=== PATIENT | male | born 1965 | race Caucasian/White ===

== ENCOUNTER 2016-11-27 12:39 | Emergency (ER) | payer MEDICARE, OTHER ==
[~2016-11-27] VITALS: Ht 167.6 cm; Wt 79.8 kg
[~2016-11-27 12:39] MED LIST: ATIVAN0.5 MG PO; ATIVAN1 MG PO; BACTRIM DS TAB1 EACH PO; CYCLOBENZAPRINE10 MG PO; CYMBALTA30 MG PO; DEPAKENE250 MG; DEPAKENE250 MG PO; DEPAKOTE250 MG PO; DESCOVY 200-251 EACH PO; DIVALPROEX SOD250 MG PO; DULOXETINE HCL30 MG PO; FLEXERIL PO; FLEXERIL10 MG PO; IMITREX6 MG/0.52 INJ; ISENTRESS400 MG PO; KEFLEX500 MG PO; KEPPRA500 MG PO; LIDODERM700 MG TD; LYRICA150 MG PO; METOPROLOL SUCC25 MG PO; METOPROLOL SUCC50 MG PO; MICARDIS40 MG PO; MICARDIS80 MG PO; MONTELUKAST SOD10 MG PO; NASONEX17 GM NAS; NORCO 5-325 TA1 EACH PO; PERCOCET 10-321 EACH PO; PERCOCET 5-3251 EACH PO; PHENERGAN25 MG/1 ML; PREZCOBIX 8001 EACH PO; PROMETHAZINE12.5 M1 PO; ROBAXIN-750750 MG PO; SUMATRIPTAN SU100 MG PO; TELMISARTAN80 MG PO; TIVICAY50 MG PO; TOPAMAX15 MG PO; TRAZODONE HCL100 MG PO; TRUVADA 200 MG1 EACH PO; VENTOLIN HFA18 GM INH; ZOFRAN4 MG PO
[2016-11-27] MEDS ORDERED: CARVEDILOL3.125 MG PO (13:27)
== END 2016-11-27 13:36 | disposition home or self-care (01) ==
LOC: ED 12:39
DX: I10 Essential (primary) hypertension (principal); G40.909 Epilepsy, unspecified, not intractable, without status epilepticus; J44.9 Chronic obstructive pulmonary disease, unspecified; F31.9 Bipolar disorder, unspecified; F41.9 Anxiety disorder, unspecified; F43.10 Post-traumatic stress disorder, unspecified; Z90.49 Acquired absence of other specified parts of digestive tract; Z88.8 Allergy status to other drugs, medicaments and biological substances; Z79.899 Other long term (current) drug therapy
CPT/HCPCS: 99283

== ENCOUNTER 2017-05-26 10:13 | Emergency (ER) | payer MEDICARE, OTHER ==
[~2017-05-26] VITALS: Ht 167.6 cm; Wt 71.7 kg
[~2017-05-26 10:13] MED LIST changes: +CARVEDILOL3.125 MG PO
[2017-05-26] MEDS ORDERED: TAMIFLU75 MG PO (11:40)
[2017-05-26] MEDS ORDERED: ONDANSETRON ODT8 MG PO (11:40)
== END 2017-05-26 11:55 | disposition home or self-care (01) ==
LOC: ED 10:13
DX: J10.1 Influenza due to other identified influenza virus with other respiratory manifestations (principal); I10 Essential (primary) hypertension; J44.9 Chronic obstructive pulmonary disease, unspecified; G40.909 Epilepsy, unspecified, not intractable, without status epilepticus; F31.9 Bipolar disorder, unspecified; F41.9 Anxiety disorder, unspecified; Z21 Asymptomatic human immunodeficiency virus [HIV] infection status; Z90.49 Acquired absence of other specified parts of digestive tract; Z88.8 Allergy status to other drugs, medicaments and biological substances; Z79.899 Other long term (current) drug therapy
CPT/HCPCS: 71045; 80053; 81001; 83605; 85025; 96361; 96374; 96375; 99283; J1885; J2405; J7030

== ENCOUNTER 2017-07-05 09:11 | Emergency (ER) | payer MEDICARE, OTHER ==
[~2017-07-05] VITALS: Ht 167.6 cm; Wt 71.7 kg
--- OUTSIDE RECORDS SUMMARY | ~2017-07-05 | XMS | Clinical Summary ---
Demographics + + + | Address | [address] | | | [place] [address] | + + + | Home Phone | | + + + | Preferred Language | Unknown | + + + | Marital Status | Unmarried Domestic Partner | + + + | Amish Affiliation | NON | + + + [...] [place], [place] | | | | | [address] | | + + + + + Care Team Providers + +------+ + | Care Shank Taper Name | Role | Phone | + +------+ + | Jax Cabrera MD | PP | | + +------+ + Source Comments FAUSTO is fully live on both EpicCare Ambulatory and EpicCare InPatient.[facility] Allergies + + + + + [...] | | | | | | | ([facility]) | | | | | | | [...] | | | | | | | ([facility]) | | | | | | | [...] | | | | | | | ([facility]), Diarrhea, | | | | | | [...] | 7 | + + + + Encounters +--------+ + + + + | Date | Type | Specialty | Care Team | Description | +--------+ + + + + | 04/13/ | Telephone | | Krista Lo | Social work | | 2016 | | | | consultation (Issues | | | | | | with medical | | | | | | records/practice) | +--------+ + + + + from [...] + + + | INFLUENZA VACCINE | Completed | 02/24/2017, 02/24/2017, | | | (FLU SHOT) | | 03/09/2016, Additional history | | | | | exists | | + + + + + Results Not on filefrom Last 3 Months
--- OUTSIDE RECORDS SUMMARY | ~2017-07-05 | XMS | Clinical Summary ---
Demographics + + + | Address | [address] | | | [place] [address] | + + + | Home Phone | | + + + | Preferred Language | Unknown | + + + | Marital Status | Unmarried Domestic Partner | + + + | Confucianism Affiliation | NON | + + + [...] | + + + + + | SHWAN STEPHENS | ECON | [address] | | | | | [place], [place] | | | | | [address] | | + + + + + Care Team Providers + +------+ + | Care Stripper Cutter Machine Name | Role | Phone | + +------+ + | Jax Cabrera MD | PP | | + +------+ + Source Comments FAUSTO is fully live on both EpicCare Ambulatory and EpicCare InPatient.[facility] Allergies + + + + + [...] | | | | | ([facility]) | | | | | | [...] | | | | | ([facility]) | | | | | | [...] | | | | | ([facility]), Diarrhea, | | | | | [...]
--- OUTSIDE RECORDS SUMMARY | ~2017-07-05 | XMS | Encounter Summary ---
Demographics + + + | Address | [address] | | | [place] [address] | + + + | Home Phone [...] + + + | Author | [facility] | [...] 10TH | | | | | [place] | | | | | [address] | | + + + + + Care Team Providers + +------+ + | Care Business Systems Consultant Name | Role | Phone | [...] + + | 04/13/ | Telephone | Internal Medicine | Krista Lo | Social work | | 2017 | | [facility] [address] | [address] | consultation (Issues | | | | Maggie [place] | [place], | with medical | | | | Road Mailcode: | [place] [address] | records/practice) | | | | [address] | | | | | | [place] | | | | | | [place] [address] | | | | | | [phone] | | | +--------+ + + + [...]
--- OUTSIDE RECORDS SUMMARY | ~2017-07-05 | XMS | Encounter Summary ---
Demographics + + + | Address | [address] | | | [place] [address] | + + + | Home Phone [...] + + + | Author | [facility] | + + + | [...] [place] | | | | | [address] | | + + + + + Care Team Providers + +------+ + | Care Front End Loader Operator Name | Role | Phone | [...] | | Maggie [place] | [place], | with medical | | | | Road Mailcode: | [place] [address] | records/practice) | | | | [address] | | | | | | [place] | | | | | | [place] [address] | | | | | | [phone] | | | +--------+ + + + [...]
[~2017-07-05 09:11] MED LIST changes: +ONDANSETRON ODT8 MG PO; +TAMIFLU75 MG PO
[2017-07-05] MEDS ORDERED: NITROSTAT0.4 MG SL (13:09)
--- NOTE | 2017-07-05 21:36 | EKG ---
[facility] [address] [place] [address] Signed Normal sinus rhythm Minimal voltage criteria for LVH, may be normal variant Borderline ECG When compared with ECG of 17-JAN-2016 13:37, No significant change was found Confirmed by ILENE FLEMING MD ([id number]) on 07/05/2017 9:36:15 PM Electronically Signed By: ILENE FLEMING MD 07/05/17 2136 PATIENT NAME: MICHAEL CHAVEZ Electrocardiogram DATE OF : 67 PHYSICIAN: ILENE FLEMING MD REPORT #: [id number] REPORT IS CONFIDENTIAL AND NOT TO BE RELEASED WITHOUT AUTHORIZATION
== END 2017-07-05 13:40 | disposition home or self-care (01) ==
LOC: ED 09:11
DX: R07.89 Other chest pain (principal); B19.20 Unspecified viral hepatitis C without hepatic coma; I10 Essential (primary) hypertension; B20 Human immunodeficiency virus [HIV] disease; F31.9 Bipolar disorder, unspecified; F41.9 Anxiety disorder, unspecified; Z88.8 Allergy status to other drugs, medicaments and biological substances; Z79.899 Other long term (current) drug therapy
CPT/HCPCS: 71045; 80053; 84484; 85025; 93005; 93010; 99284

== ENCOUNTER 2017-11-09 10:01 | Emergency (ER) | payer MEDICARE, OTHER ==
[~2017-11-09] VITALS: Ht 167.6 cm; Wt 71.7 kg
[~2017-11-09 10:01] MED LIST changes: +NITROSTAT0.4 MG SL
[2017-11-09] MEDS ORDERED: TRUVADA 100 MG1 EACH PO (10:18)
[2017-11-09] MEDS ORDERED: TRAZODONE HCL100 MG PO (11:10)
[2017-11-09] MEDS ORDERED: DEPAKOTE250 MG PO (11:10)
[2017-11-09] MEDS ORDERED: BACLOFEN10 MG PO (12:24)
--- NOTE | 2017-11-11 17:06 | EKG ---
[facility] [address] [facility] [place] [address] Signed Normal sinus rhythm Incomplete right bundle branch block Minimal voltage criteria for LVH, may be normal variant Borderline ECG When compared with ECG of 05-JUL-2017 09:16, No significant change was found Confirmed by ILENE FLEMING MD ([id number]) on 11/11/2017 5:05:46 PM Electronically Signed By: ILENE FLEMING MD 11/11/17 1706 PATIENT NAME: MICHAEL CHAVEZ PILLO Electrocardiogram DATE OF : 67 PHYSICIAN: ILENE FLEMING MD REPORT #: [id number] REPORT IS CONFIDENTIAL AND NOT TO BE RELEASED WITHOUT AUTHORIZATION
== END 2017-11-09 12:43 | disposition home or self-care (01) ==
LOC: ED 10:01
DX: S16.1XXA Strain of muscle, fascia and tendon at neck level, initial encounter (principal); G40.909 Epilepsy, unspecified, not intractable, without status epilepticus; B20 Human immunodeficiency virus [HIV] disease; I10 Essential (primary) hypertension; Z88.8 Allergy status to other drugs, medicaments and biological substances; Z79.899 Other long term (current) drug therapy; W18.30XA Fall on same level, unspecified, initial encounter
CPT/HCPCS: 70450; 72125; 80053; 80164; 84484; 85025; 93005; 93010; 99284

== ENCOUNTER 2018-01-28 14:19 | Emergency (ER) | payer MEDICARE, OTHER ==
[~2018-01-28] VITALS: Ht 167.6 cm; Wt 71.7 kg
--- OUTSIDE RECORDS SUMMARY | ~2018-01-28 | XMS | Clinical Summary ---
Demographics + + + | Address | [address] | | | [place] [address] | + + + | Home Phone | | + + + | Preferred Language | Unknown | + + + | Marital Status | Unmarried Domestic Partner | + + + | Hinduism Affiliation | NON | + + + | Race | White | + + + | Ethnic Group | Not or | + + + Author + + + | Author | [facility] | + + + | Organization | [facility] | + + + | Address | Unknown | + + + | Phone | Unavailable | + + + Support + + + + + | Name | Relationship | Address | Phone | + + + + + | SHAWN STEPHENS | ECON | [address] | | | | | [place], [place] | | | | | [address] | | + + + + + Care Team Providers + +------+ + | Care Site Medical Director Name | Role | Phone | + +------+ + | Jax Cabrera MD | PP | | + +------+ + Source Comments FAUSTO is fully live on both EpicCare Ambulatory and EpicCare InPatient.[facility] Allergies + + + + + + | Active Allergy | Reactions | Severity | Noted | Comments | | | | | Date | | + + + + + + | Gabapentin | Unknown, | Medium | 06/01/19 | Loss of memory, | | | Hallucinations | | 14 | headache Loss of | | | | | | memory, headache | + + + + + + | Phenytoin | Diarrhea, Unknown | Low | 04/03/20 | h/a | | | | | 16 | | + + + + + + | Phenytoin Sodium | Unknown | Low | 08/15/19 | h/a | | Extended | | | 16 | | + + + + + + Current Medications + + +---------+---------+------+------+-------+ | Prescription | Sig. | Disp. | Refills | Star | End | Statu | | | | | | t | Date | s | | | | | | Date | | | + + +---------+---------+------+------+-------+ | telmisartan 80 mg | Take 1 tablet by | 30 | 0 | 10/2 | | Activ | | oral | mouth once daily. | tablet | | 20 | | e | | tabletIndications: | Indications: | | | 16 | | | | hypertension | HYPERTENSION | | | | | | + + +---------+---------+------+------+-------+ | divalproex DR 250 | Rx per PCP. Per | | | 04/16 | | Activ | | mg oral | patient takes 1 | | | 11/03 | | e | | tablet,delayed | tablet BID for | | | 16 | | | | release (DR/EC) | seizure d/o. | | | | | | + + +---------+---------+------+------+-------+ | salmeterol | Rx per PCP. Per | | | 04/16 | | Activ | | (SEREVENT DISKUS) 50 | patient takes 2 | | | 620 | | e | | mcg/dose inhalation | puffs as needed. | | | 16 | | | | blister with device | | | | | | | + + +---------+---------+------+------+-------+ | traZODone 100 mg | Rx per PCP. Per | | | 04/16 | | Activ | | oral tablet | patient takes 1 | | | 6/20 | | e | | | tablet every evening | | | 16 | | | | | for sleep. | | | | | | + + +---------+---------+------+------+-------+ | | Rx per PCP. Per | | | 04/16 | | Activ | | diphenoxylate-atropi | patient takes as | | | 6/20 | | e | | ne 2.5-0.025 mg oral | needed for diarrhea. | | | 16 | | | | tablet | | | | | | | + + +---------+---------+------+------+-------+ | dolutegravir | Take 1 tablet by | 30 | 3 | 02/0 | | Activ | | (TIVICAY) 50 mg oral | mouth once daily. | tablet | | 20 | | e | | tabletIndications: | | | | 17 | | | | HIV (human | | | | | | | | immunodeficiency | | | | | | | | virus infection) | | | | | | | | ([facility]) | | | | | | | + + +---------+---------+------+------+-------+ | | Take 1 tablet by | 30 | 3 | 02/0 | | Activ | | emtricitabine-tenofo | mouth once daily. | tablet | | 1/20 | | e | | vir alafenamide | | | | 17 | | | | 200-25 mg oral | | | | | | | | tabletIndications: | | | | | | | | HIV (human | | | | | | | | immunodeficiency | | | | | | | | virus infection) | | | | | | | | ([facility]) | | | | | | | + + +---------+---------+------+------+-------+ | albuterol (PROAIR | Inhale 1-2 puffs by | 1 | 2 | 02/0 | | Activ | | HFA) 90 | mouth every six | Inhaler | | /20 | | e | | mcg/actuation | hours as needed. | | | 17 | | | | inhalation HFA | Contact provider if | | | | | | | aerosol | using >1 | | | | | | | inhalerIndications: | inhaler/month. | | | | | | | Mild intermittent | (Pharmacy: please | | | | | | | asthma without | disp whichever | | | | | | | complication | albuterol is on | | | | | | | | formulary) | | | | | | + + +---------+---------+------+------+-------+ | SUMAtriptan 100 mg | Take by mouth. | | | | | Activ | | oral tablet | | | | | | e | + + +---------+---------+------+------+-------+ | promethazine 12.5 | Takes as needed for | 30 | 0 | 03/2 | | Activ | | mg oral tablet | nausea. | tablet | | 1/20 | | e | | | | | | 17 | | | + + +---------+---------+------+------+-------+ | crofelemer 125 mg | Take 1 tablet by | 60 | 2 | 07/1 | | Activ | | oral tablet,delayed | mouth every twelve | tablet | | 0/20 | | e | | release | hours. | | | 17 | | | | (DR/EC)Indications: | | | | | | | | HIV (human | | | | | | | | immunodeficiency | | | | | | | | virus infection) | | | | | | | | ([facility]), Diarrhea, | | | | | | | | unspecified type | | | | | | | + + +---------+---------+------+------+-------+ Active Problems + + + | Problem | Noted Date | + + + | Asthma | 06/18/2016 | + + + | Heart murmur | 06/18/2016 | + + + | Hypertension | 06/18/2016 | + + + | VSD (ventricular septal defect) | 06/18/2016 | + + + | Chronic pain | 06/18/2016 | + + + | Seizure disorder (HCC) | 04/15/2016 | + + + | Cardiac anomaly, congenital | 04/14/2016 | + + + | History of heroin abuse | 04/03/2016 | + + + | Intermittent asthma | 04/03/2016 | + + + | Chronic hepatitis C virus infection (HCC) | 04/03/2016 | + + + + + | Overview: Overview: | | Completed Harvoni treatment | | He is disease free | + + + + + | Bipolar I disorder (HCC) | 02/16/2016 | + + + | Benign essential hypertension | 02/16/2016 | + + + | Back pain | 02/16/2016 | + + + | Convulsions (HCC) | 02/16/2016 | + + + | Chronic Diarrhea | 02/16/2016 | + + + | HIV (human immunodeficiency virus infection) (HCC) | 02/07/2016 | + + + + + | Overview: Last Assessment & Plan: | | Will continue with Infectious disease specialist. | + + + + + | Hepatitis B | 02/07/2016 | + + + | Seizure (HCC) | 02/07/2016 | + + + | Sacroiliac joint pain | 04/27/2013 | + + + + + | Overview: Last Assessment & Plan: This patient has symptoms | | of sacroiliac generated pain. 06/01/2013 he underwent a right | | sacroiliac joint steroid injection under fluoroscopic guidance. | | This provided more than 80% relief of his pain for more than 4 | | months. His pain has now returned and is now bilateral. He has | | significant tenderness over bilateral sacroiliac joints. | | Stressing the sacroiliac joints increases the pain in this area. | | His pain is consistent with sacroiliac generated pain. He is | | therefore candidate for left and right sacroiliac joint steroid | | injections under fluoroscopic guidance.Plan, alternatives, risks, | | and potential benefits of the procedure were discussed with the | | patient great detail. They understand there is no guarantee they | | will get pain relief with this procedure. They also understand | | that if they did get pain relief there is no way to know how long | | it will last. They also understand that there are risks of the | | procedure itself which include but are not limited to infection, | | abscess, hematoma, nerve damage, increased pain, permanent | | dysfunction to their limbs, stroke, and side effects or allergic | | reactions from medications. They wished to proceed. | + + + + + | Chronic pain associated with significant psychosocial dysfunction | 11/09/2012 | + + + | Radicular pain | 06/22/2012 | + + + + + | Overview: Last Assessment & Plan: This patient has MRI | | documented lumbar degenerative disk disease with an L5-S1 disk | | protrusion that results in right L5 neural foraminal narrowing. | | There is also an annular tear at this level. The patient | | previously had bilateral lower extremity radicular pain and | | underwent a caudal epidural steroid injection with catheter | | targeting the right and left L5 and S1 nerve roots 07/05/2012. | | This was repeated on 01-25-14. Initially he did well for 1 week, | | but then his radicular and low back pain returned and is more | | severe and now he is complaining of fevers, night sweats and | | headache. Since his last MRI is over 2 years ago, will get an | | urgent MRI and labs to evaluate for infection. He will then | | return to review his MRI. Last Assessment & Plan: This | | gentleman also has neck pain traveling to his right arm in the | | C6-7 dermatomal distribution. His cervical MRI showed scoliosis | | in his upper thoracic and cervical spine, degenerative disk and | | facet disease causing mild central stenosis and more left | | foraminal stenosis than right from C3-4 to C5-6, but moderate | | right foraminal stenosis at C6-7. We reviewed his MRI and | | discussed options. His symptoms are most likely due to the | | foraminal stenosis at C6-7. He has tried and failed other | | conservative measures. He is a candidate for a cervical epidural | | steroid injection. Will have to postpone this cervical epidural | | steroid injection until September since he has now have had 3 lumbar | | epidural steroid injections since 03-15-12. In September, he could go | | forward with another epidural steroid injection. He will call | | and make a f/u appointment in late August so that we can arrange | | for his cervical epidural steroid injection if he wishes. Would | | plan on a C7-T1 cervical epidural steroid injection under | | fluoroscopic guidance. | + + + + + | Degeneration of intervertebral disc of cervical region | 06/22/2012 | + + + + + | Overview: Last Assessment & Plan: | | Please see discussion under cervical radicular pain | + + + + + | Arthropathy of lumbar facet joint (HCC) | 05/23/2012 | + + + + + | Overview: Last Assessment & Plan: | | Please see discussion under lumbar radicular pain. | + + + + + | Irritable bowel syndrome | 03/13/2012 | + + + | Nausea and vomiting | 05/21/2011 | + + + Resolved Problems + + + + | Problem | Noted | Resolved | | | Date | Date | + + + + | Hepatitis C | 02/16/20 | | | | 16 | 7 | + + + + Immunizations + + + + | Name | Dates Previously Given | Next Due | + + + + | Influenza Injectable | 02/24/2017, 03/09/2016 | | | Quadrivalent (IIV4 | | | | P-Free) | | | + + + + | Influenza, seasonal, | 02/09/2012 | | | intradermal pfree | | | + + + + | Influenza-high dose, | 02/23/2011 | | | pfree | | | + + + + | PCV13 | 02/07/2016 | | + + + + | Pneumococcal 23 | 02/24/2017, 03/10/2011 | | + + + + | Tdap | 04/03/2014 | | + + + + Family History + + +------+ + | Medical History | Relation | Name | Comments | + + +------+ + | Cancer | Father | | | + + +------+ + | Additional Family | Mother | | brain aneursym | | History | | | | + + +------+ + | Additional Family | Sister | | substance abuse | | History | | | | + + +------+ + + +------+--------+ + | Relation | Name | Status | Comments | + +------+--------+ + | Father | | | | + +------+--------+ + | Mother | | | | + +------+--------+ + | Sister | | | | + +------+--------+ + Social History + +-------+ +--------+------+ | [...] + +---------+ + | No | 0 | 0.0 | | | | Standard | | | | | drinks or | | | | | | | | | | equivalen | | | | | t | | | + + +---------+ + + + + | Sex Assigned at | Date Recorded | | | | + + + | Not on file | | + + + Last Filed Vital Signs + + + + | Vital Sign | Reading | Time Taken | + + + + | Blood Pressure | 117/82 | 03/08/2017 9:00 AM PDT | + + + + | Pulse | 55 | 03/08/2017 9:00 AM PDT | + + + + | Temperature | 36.6 C (97.9 F) | 03/08/2017 8:38 AM PDT | + + + + | Respiratory Rate | 16 | 03/08/2017 9:00 AM PDT | + + + + | Oxygen Saturation | 96% | 03/08/2017 9:00 AM PDT | + + + + | Inhaled Oxygen | - | - | | Concentration | | | + + + + | Weight | 71.2 kg (157 lb) | 03/08/2017 7:00 AM PDT | + + + + | Height | 167.6 cm (5' 6") | 03/08/2017 7:00 AM PDT | + + + + | Body Mass Index | 25.34 | 03/08/2017 7:00 AM PDT | + + + + Plan of Treatment + + + + + | Health Maintenance | Due Date | Last Done | Comments | + + + + + | TB SCREENING | | | | | (PPD/TST,QUANTIFERON | 7 | | | | ) | | | | + + + + + | VITAMIN D MONITORING | | 08/17/2016, 06/17/2016, | | | | 8 | 02/07/2016 | | + + + + + | INFLUENZA VACCINE | | 02/24/2017, 02/24/2017, | | | (FLU SHOT) | 8 | 03/09/2016, Additional history | | | | | exists | | + + + + + | CHOLESTEROL | | 06/17/2016 | | | SCREENING | 2 | | | + + + + + | PPSV PNEUMOCOCCAL | | 02/24/2017, 02/24/2017, | | | VACCINE | 2 | 03/10/2011 | | + + + + + | PCV13 PNEUMOCOCCAL | Completed | 02/07/2016 | | | VACCINE | | | | + + + + + Results Not on filefrom Last 3 Months Insurance + +--------+ +--------+ + + | Payer | Benefi | Subscriber | Type | Phone | Address | | | t Plan | ID | | | | | | / | | | | | | | Group | | | | | + +--------+ +--------+ + + | MEDICARE | MEDICA | xxxxxxxxxx | Medica | [phone] | [address] | | | RE A & | | re | [phone] | [place] [address] | | | B | | | | | + +--------+ +--------+ + + | [place]ICAID [place] | OHP | xxxxxxxx | Medica | [phone] [address] [address] | | | PLUS | | id | [phone] | [place] [address] | | | OPEN | | | | | | | CARD | | | | | + +--------+ +--------+ + + | CARE[employer]SIST | CARE | xxxx | POS | [phone] | ATTN:TPA DESK [address] | | | ASSIST | | | [phone] | [address] [address] [place] | | | | | | | [place] [address] | + +--------+ +--------+ + + + +--------+ +--------+ + + | Guarantor Name | Accoun | Relation to | Date | Phone | Billing Address | | | t Type | Patient | of | | | | | | | | | | + +--------+ +--------+ + + | MICHAEL GILES | Person | Self [birth year] Home: | [address] | | | al/Fam | | [phone] | [phone] [place] [address] | | | arvin | | | [phone] | | + +--------+ +--------+ + +
--- OUTSIDE RECORDS SUMMARY | ~2018-01-28 | XMS | Clinical Summary ---
Demographics + + + | Address | [address] | | | [place] [address] | + + + | Home Phone | | + + + | Preferred Language | Unknown | + + + | Marital Status | | + + + | Mormon Affiliation | 1013 | + + + | Race | Unknown | + + + | Ethnic Group | Unknown | + + + Author + + + | Author | [facility] | | | and [place] | + + + | Organization | [facility] | | | and [place] | + + + | Address | Unknown | + + + | Phone | Unavailable | + + + Support + + + + + | Name | Relationship | Address | Phone | + + + + + | Gabriel Greenberg | ECON | [address] | | | | | [address] [place], | | | | | [place] [address] | | + + + + + Care Team Providers + +------+ + | Care Supervisor Roller Printing Name | Role | Phone | + +------+ + | Jax Cabrera MD | PP | Unavailable | + +------+ + Allergies + + + + + + | Active Allergy | Reactions | Severity | Noted | Comments | | | | | Date | | + + + + + + | Phenytoin | Diarrhea | | 04/15/20 | | | | | | 16 | | + + + + + + Current Medications + + +--------+---------+------+------+-------+ | Prescription | Sig. | Disp. | Refills | Star | End | Statu | | | | | | t | Date | s | | | | | | Date | | | + + +--------+---------+------+------+-------+ | pregabalin | Take 150 mg by mouth | | | /0 | | Activ | | (LYRICA) 150 MG | Daily. | | | 10/03 | | e | | capsule | | | | 12 | | | + + +--------+---------+------+------+-------+ | divalproex | Take 250 mg by mouth | | | 01/15 | | Activ | | (DEPAKOTE) 250 mg EC | Daily. | | | 01/03 | | e | | tablet | | | | 12 | | | + + +--------+---------+------+------+-------+ | SUMAtriptan | Take 100 mg by mouth | | | 01/15 | | Activ | | (IMITREX) 100 mg | as needed. | | | 8 | | e | | tablet | | | | 12 | | | + + +--------+---------+------+------+-------+ | loratadine (GNP | Take 10 mg by mouth | | | 01/15 | | Activ | | LORATADINE) 10 mg | Daily. | | | 01/03 | | e | | tablet | | | | 12 | | | + + +--------+---------+------+------+-------+ | traZODone | Take 100 mg by mouth | | | 01/15 | | Activ | | (DESYREL) 100 mg | nightly. | | | 01/03 | | e | | tablet | | | | 12 | | | + + +--------+---------+------+------+-------+ | | TABS: one tablet | | | 01/15 | | Activ | | Emtricitabine-Tenofo | daily | | | 01/03 | | e | | vir (TRUVADA PO) | | | | 12 | | | + + +--------+---------+------+------+-------+ | DULoxetine | Take 30 mg by mouth | | | 01/15 | | Activ | | (CYMBALTA) 30 mg | Daily. | | | 01/03 | | e | | capsule | | | | 12 | | | + + +--------+---------+------+------+-------+ | Dexlansoprazole | Take 60 mg by mouth | | | 05/18 | | Activ | | (DEXILANT) 60 MG | Daily. | | | 08/03 | | e | | CPDR | | | | 12 | | | + + +--------+---------+------+------+-------+ | ondansetron | Take 4 mg by mouth | | | 05/18 | | Activ | | (ZOFRAN) 4 mg tablet | every 8 hours as | | | 320 | | e | | | needed. | | | 12 | | | + + +--------+---------+------+------+-------+ | telmisartan | Take 80 mg by mouth | | | | | Activ | | (MICARDIS) 80 MG | Daily. | | | | | e | | tablet | | | | | | | + + +--------+---------+------+------+-------+ | | Inhale 2 puffs into | | | | | Activ | | albuterol-ipratropiu | the lungs every 6 | | | | | e | | m (COMBIVENT) 103-18 | hours as needed for | | | | | | | mcg/puff inhaler | Wheezing. | | | | | | + + +--------+---------+------+------+-------+ | salmeterol | Inhale 1 puff into | | | | | Activ | | (SEREVENT DISKUS) 50 | the lungs as needed. | | | | | e | | mcg/puff diskus | | | | | | | | inhaler | | | | | | | + + +--------+---------+------+------+-------+ | oxyCODONE | Take 10 mg by mouth | | | | | Activ | | (OXYCONTIN) 10 mg ER | as needed for Pain. | | | | | e | | abuse-deterrent | | | | | | | | tablet | | | | | | | + + +--------+---------+------+------+-------+ | nitroglycerin | Place 0.4 mg under | | | | | Activ | | (NITROSTAT) 0.4 mg | the tongue every 5 | | | | | e | | SL tablet | minutes as needed | | | | | | | | for Chest pain. | | | | | | + + +--------+---------+------+------+-------+ | amLODIPine | Take 1 tablet by | 30 | 11 | 12/0 | | Activ | | (NORVASC) 5 mg | mouth Daily. | tablet | | 1/20 | | e | | tablet | | | | 16 | | | + + +--------+---------+------+------+-------+ | | Take 1 tablet by | 15 | 0 | 07/2 | | Activ | | HYDROcodone-acetamin | mouth every 6 hours | tablet | | 7/20 | | e | | ophen (NORCO) 5-325 | as needed. | | | 18 | | | | mg per tablet | | | | | | | + + +--------+---------+------+------+-------+ | ondansetron | Take 1 tablet by | 12 | 0 | / | | Activ | | (ZOFRAN ODT) 8 mg | mouth every 8 hours | tablet | | 12/03 | | e | | disintegrating | as needed for | | | 18 | | | | tablet | Nausea. | | | | | | + + +--------+---------+------+------+-------+ Active Problems + + + | Problem | Noted Date | + + + | Mixed hyperlipidemia | 01/29/2017 | + + + | Seizure disorder (FORMERLY [facility]) | 04/15/2016 | + + + | HIV (human immunodeficiency virus infection) (FORMERLY [facility]) | 04/14/2016 | + + + | VSD (ventricular septal defect) | 04/14/2016 | + + + | OTHER SPECIFIED DISORDER OF INTESTINES | 06/08/2011 | + + + | ABDOMINAL PAIN-EPIGASTRIC | 05/21/2011 | + + + | NAUSEA WITH VOMITING | 05/21/2011 | + + + | ASTHMA | | + + + | HYPERTENSION | | + + + | CARDIAC MURMUR | | + + + | VOMITING | | + + + | HEPATITIS C | | + + + + + | Overview: ICD-10 Record update | + + + +---+ | ABDOMINAL PAIN | | + +---+ | DEPRESSION | | + +---+ Encounters +--------+ + + + + | Date | Type | Specialty | Care Team | Description | +--------+ + + + + | 12/10/ | Emergency | | Benji Estrada, | Acute left ankle | | 2018 | | | MD | pain (Primary Dx) | +--------+ + + + + from Last 3 Months Family History + + +------+ + | Medical History | Relation | Name | Comments | + + +------+ + | Cancer | Father | | | + + +------+ + | Alcohol abuse | Mother | | | + + +------+ + + +------+ + + | Relation | Name | Status | Comments | + +------+ + + | Father | | | | + +------+ + + | Mother | | | | + +------+ + + Social History + +-------+ +--------+------+ [...] + + + | Blood Pressure | 158/101 | 12/10/20171814 PDT | + + + + | Pulse | 80 | 12/10/20171814 PDT | + + + + | Temperature | 37 C (98.6 F) | 12/10/20171732 PDT | + + + + | Respiratory Rate | 14 | 12/10/20171814 PDT | + + + + | Oxygen Saturation | 97% | 12/10/20171814 PDT | + + + + | Inhaled Oxygen | - | - | | Concentration | | | + + + + | Weight | 69.9 kg (154 lb) | 12/10/20171732 PDT | + + + + | Height | 167.6 cm (5' 6") | 04/15/2016 1441 PST | + + + + | Body Mass Index | 24.86 | 12/10/2017 1733 PDT | + + + + Plan of Treatment + + + + + | Health Maintenance | Due Date | Last Done | Comments | + + + + + | Colorectal Cancer | | | | | Screening | 7 | | | | (Colonoscopy) | | | | + + + + + | Vaccine: Influenza | | 02/24/2017, 03/09/2016, | | | (#1) | 8 | 02/23/2011 | | + + + + + | Vaccine: | | 04/03/2014 | | | Dtap/Tdap/Td (2 - | 4 | | | | Td) | | | | + + + + + | Vaccine: | Completed | 02/24/2017, 02/07/2016, | | | Pneumococcal 19-64 | | 03/10/2011 | | | Highest Risk | | | | + + + + + Procedures + +--------+ + + + | Procedure Name | Priori | Date/Time | Associated Diagnosis | Comments | | | ty | | | | + +--------+ + + + | XR ANKLE LEFT 3 + VW | STAT | 12/10/2017 | | Results for this | | | | 1746 PDT | | procedure are in the | | | | | | results section. | + +--------+ + + + from Last 3 Months Results XR Ankle Left 3 + Vw (12/10/2017 1746) + + + | Narrative | Performed At | + + + | XR ANKLE LEFT 3 + VW 12/10/2017 5:40 PM HISTORY: trauma. | [facility] | | COMPARISON: None. FINDINGS: There are no acute osseous | | | abnormalities. Small superior navicular osteophyte. Bone | | | mineralization is normal. Soft tissue structures are unremarkable. | | | IMPRESSION - No acute osseous findings. Dictated and Signed by: | | | Fish Rivas MD Electronically signed: 12/10/2017 6:34 PM | | + + + + + | Procedure Note | + + | Eric, Rad Results In - 12/10/2017 1837 PDT XR ANKLE LEFT 3 + VW 12/10/2017 5:40 PM | | | | HISTORY: trauma. | | | | COMPARISON: None. | | | | FINDINGS: | | There are no acute osseous abnormalities. Small superior navicular osteophyte. | | Bone mineralization is normal. Soft tissue structures are unremarkable. | | | | IMPRESSION - | | No acute osseous findings. | | | | Dictated and Signed by: Fish Rivas MD | | Electronically signed: 12/10/2017 6:34 PM | + + + +---------+ + + | Performing | Address | City/State/Zipcode | Phone Number | | Organization | | | | + +---------+ + + | [facility] | | | | + +---------+ + + from Last 3 Months Insurance + +--------+ +--------+ +---------+ | Payer | Benefi | Subscriber | Type | Phone | Address | | | t Plan | ID | | | | | | / | | | | | | | Group | | | | | + +--------+ +--------+ +---------+ | MEDICARE | MEDICA | [id number] | Medica | [phone] | | | | RE | | re | [phone] | | | | PART A | | | | | | | AND B | | | | | + +--------+ +--------+ +---------+ | [place]ID [place] | MEDICA | [id number] | Medica | [phone] | | | [place] | | id | [phone] | | | | PLUS | | | | | + +--------+ +--------+ +---------+ + +--------+ +--------+ + + | Guarantor Name | Accoun | Relation to | Date | Phone | Billing Address | | | t Type | Patient | of | | | | | | | | | | + +--------+ +--------+ + + | MICHAEL GILES | Person | Self [birth year] Home: | [address] | | | al/Fam | | 1966 | [phone] | [place] [address] | | | arvin | | | [phone] | | + +--------+ +--------+ + +
--- OUTSIDE RECORDS SUMMARY | ~2018-01-28 | XMS | Clinical Summary ---
Demographics + + + | Address | [address] | | | [place] [address] | + + + | Home Phone | | + + + | Preferred Language | Unknown | + + + | Marital Status | | + + + | Catholic Affiliation | 1013 | + + + | Race | Unknown | + + + | Ethnic Group | Unknown | + + + Author + + + | Author | [facility] | | | and [place] | + + + | Organization | [facility] | | | and [place] | [...] [place], | | | | | [place] [address] | | + + + + + Care Team Providers + +------+ + | Care Vmware Administrator Name | Role | Phone | + [...] Seizure disorder (FORM[facility]LY [facility]) | 04/15/2016 | + + + | HIV (human immunodeficiency virus infection) (FORMERLY [facility]) | 04/14/2016 | + + + | [...] +--------+ +---------+ | MEDICARE | MEDICA | [id number] | Medica | [phone] | | | | RE | | re | [phone] | | | | PART A | | | | | | | AND B | | | | | + +--------+ +--------+ +---------+ | MEDICAID [place] | MEDICA | [id number] | Medica | [phone] | | | [...] Self | [birth year] | Home: | [address] | | | al/Fam | | 1966 | [phone] | [place] [address] | | | arvin | | | [phone] | | + +--------+ +--------+ + +
--- OUTSIDE RECORDS SUMMARY | ~2018-01-28 | XMS | Encounter Summary ---
Demographics + + + | Address | [address] | | | [place] [address] | + + + | Home Phone | | + + + | Preferred Language | Unknown | + + + | Marital Status | | + + + | Latter-Day Affiliation | 1013 | + + + | Race | Unknown | + + + | Ethnic Group | Unknown | + + + Author + + + | Author | [facility] | | | and [place] | + + + | Organization | [facility] | | | and [place] [...] [place], | | | | | [place] [address] | | + + + + + Care Team Providers + +------+ + | Care Graphotype Operator Name | Role | Phone | + +------+ + | Jax Cabrera MD | PCP | Unavailable | + +------+ + Reason for Visit + + + | Reason | Comments | + + + | Ankle Injury | | + + + Encounter Details +--------+ + + + + | Date | Type | Department | Care Team | Description | +--------+ + + + + | 12/10/ | Emergency | [facility] | Benji Estrada, | Acute left ankle | | 2018 | | [facility] | MD [address] | pain (Primary Dx) | | | | CENTER [address] | [place], [place] | | | | | [place], [place] | [address] | | | | | [address] | | | | | | [phone] | | | +--------+ + + + [...] + + + as of this encounter Last Filed Vital [...] Weight | 69.9 kg (154 lb) | 12/10/2017 1733 PDT | + + + + | Height | - | - | + + + + | Body Mass Index | 24.86 | 12/10/2017 1733 PDT | + + + + in this encounter Discharge Instructions Benji Estrada MD - 12/10/2017No fracture was identified Stay off the ankle and use the crutches as needed Once you start walking again, use the brace to support the ankle The following attachments cannot be sent through Care Everywhere.Tamara (Jordanian)in this encounter Medications at Time of Discharge + + +--------+---------+ + + | Medication | Sig. | Disp. | Refills | Start | End Date | | | | | | Date | | + + +--------+---------+ + + | | Inhale 2 puffs into | | | | | | albuterol-ipratropiu | the lungs every 6 | | | | | | m (COMBIVENT) 103-18 | hours as needed for | | | | | | mcg/puff inhaler | Wheezing. | | | | | + + +--------+---------+ + + | amLODIPine | Take 1 tablet by | 30 | 11 | 04/16/20 | | | (NORVASC) 5 mg | mouth Daily. | tablet | | 16 | | | tablet | | | | | | + + +--------+---------+ + + | Dexlansoprazole | Take 60 mg by mouth | | | 06/08/19 | | | (DEXILANT) 60 MG | Daily. | | | 12 | | | CPDR | | | | | | + + +--------+---------+ + + | divalproex | Take 250 mg by mouth | | | 02/02/20 | | | (DEPAKOTE) 250 mg EC | Daily. | | | 12 | | | tablet | | | | | | + + +--------+---------+ + + | DULoxetine | Take 30 mg by mouth | | | 02/02/20 | | | (CYMBALTA) 30 mg | Daily. | | | 12 | | | capsule | | | | | | + + +--------+---------+ + + | | TABS: one tablet | | | 02/02/20 | | | Emtricitabine-Tenofo | daily | | | 12 | | | vir (TRUVADA PO) | | | | | | + + +--------+---------+ + + | | Take 1 tablet by | 15 | 0 | 12/11/19 | | | HYDROcodone-acetamin | mouth every 6 hours | tablet | | 18 | | | ophen (NORCO) 5-325 | as needed. | | | | | | mg per tablet | | | | | | + + +--------+---------+ + + | loratadine (GNP | Take 10 mg by mouth | | | 02/02/20 | | | LORATADINE) 10 mg | Daily. | | | 12 | | | tablet | | | | | | + + +--------+---------+ + + | nitroglycerin | Place 0.4 mg under | | | | | | (NITROSTAT) 0.4 mg | the tongue every 5 | | | | | | SL tablet | minutes as needed | | | | | | | for Chest pain. | | | | | + + +--------+---------+ + + | ondansetron | Take 1 tablet by | 12 | 0 | 12/11/19 | | | (ZOFRAN ODT) 8 mg | mouth every 8 hours | tablet | | 18 | | | disintegrating | as needed for | | | | | | tablet | Nausea. | | | | | + + +--------+---------+ + + | ondansetron | Take 4 mg by mouth | | | 06/08/19 | | | (ZOFRAN) 4 mg tablet | every 8 hours as | | | 12 | | | | needed. | | | | | + + +--------+---------+ + + | oxyCODONE | Take 10 mg by mouth | | | | | | (OXYCONTIN) 10 mg ER | as needed for Pain. | | | | | | abuse-deterrent | | | | | | | tablet | | | | | | + + +--------+---------+ + + | pregabalin | Take 150 mg by mouth | | | 05/21/19 | | | (LYRICA) 150 MG | Daily. | | | 12 | | | capsule | | | | | | + + +--------+---------+ + + | salmeterol | Inhale 1 puff into | | | | | | (SEREVENT DISKUS) 50 | the lungs as needed. | | | | | | mcg/puff diskus | | | | | | | inhaler | | | | | | + + +--------+---------+ + + | SUMAtriptan | Take 100 mg by mouth | | | 02/02/20 | | | (IMITREX) 100 mg | as needed. | | | 12 | | | tablet | | | | | | + + +--------+---------+ + + | telmisartan | Take 80 mg by mouth | | | | | | (MICARDIS) 80 MG | Daily. | | | | | | tablet | | | | | | + + +--------+---------+ + + | traZODone | Take 100 mg by mouth | | | 02/02/20 | | | (DESYREL) 100 mg | nightly. | | | 12 | | | tablet | | | | | | + + +--------+---------+ + + as of this encounter Plan of Treatment Not on fileas of this encounter Procedures + +--------+ + [...] section. | + +--------+ + + + in this encounter Results XR Ankle Left 3 + Vw [...] | | | + +---------+ + + in this encounter Visit Diagnoses + + | Diagnosis | + + | Acute left ankle pain - Primary | + + Administered Medications + +--------+ + +------+------+ | Medication Order | MAR | Action | Dose | Rate | Site | | | Action | Date | | | | + +--------+ + +------+------+ | HYDROcodone-acetaminophen | Given | | 1 tablet | | | | (NORCO) 5-325 mg per tablet 1 | | 8 17:45 | | | | | tablet 1 tablet, Oral, ONCE, Fri | | PDT | | | | | 12/10/17 at 1745, For 1 dose | | | | | | + +--------+ + +------+------+ +---+---+ | | | +---+---+ + +-------+ +------+---+---+ | ondansetron (ZOFRAN ODT) | Given | | 4 mg | | | | disintegrating tablet 4 mg 4 mg, | | 8 17:44 | | | | | Oral, ONCE, 12/10/17 at 1745, | | PDT | | | | | For 1 dose | | | | | | + +-------+ +------+---+---+ +---+---+ | | | +---+---+ in this encounter"
--- OUTSIDE RECORDS SUMMARY | ~2018-01-28 | XMS | Clinical Summary ---
Demographics + + + | Address | [address] | | | [place] [address] | + + + | Home Phone | | + + + | Preferred Language | Unknown | + + + | Marital Status | Single | + + + | Cheondoism Affiliation | Unknown | + + + | Race | Unknown | + + + | Ethnic Group | Unknown | + + + Author + + + | Author | [facility] | + + + | Organization | [facility] | + + + | Address | [...] Team Providers + +------+ + | Care Salt Lifter Name | Role | Phone | + +------+ + | Woody Martinez MD | PP | | + +------+ + Allergies + + + + + + | Active Allergy | Reactions | Severity | Noted | Comments | | | | | Date | | + + + + + + | Phenytoin | Diarrhea, Other (See | Medium | 08/21/19 | h/a | | | Comments) | | 17 | | + + + + + + | Gabapentin | Visual Disturbance, | Medium | 06/01/19 | Loss of memory, | | | Other (See Comments) | | 14 | headache Loss of | | | | | | memory, headache | | | | | | Loss of memory, | | | | | | headache | + + + + + + Current Medications + + +-------+---------+------+------+-------+ | Prescription | Sig. | Disp. | Refills | Star | End | Statu | | | | | | t | Date | s | | | | | | Date | | | + + +-------+---------+------+------+-------+ | LORazepam (ATIVAN) | Take 1 mg by mouth | | | | | Activ | | 1 MG tablet | every 6 (six) hours | | | | | e | | | as needed. | | | | | | + + +-------+---------+------+------+-------+ | Dolutegravir | Take by mouth. | | | | | Activ | | Sodium (TIVICAY PO) | | | | | | e | + + +-------+---------+------+------+-------+ | metoprolol (TOPROL | Take 25 mg by mouth | | | | | Activ | | XL) 25 MG 24 hr | daily. | | | | | e | | tablet | | | | | | | + + +-------+---------+------+------+-------+ | pregabalin | Take 150 mg by mouth | | | | | Activ | | (LYRICA) 150 MG | 2 (two) times | | | | | e | | capsule | daily. | | | | | | + + +-------+---------+------+------+-------+ | dexlansoprazole | Take 60 mg by mouth | | | | | Activ | | (DEXILANT) 60 MG | every morning before | | | | | e | | capsule | breakfast. | | | | | | + + +-------+---------+------+------+-------+ | promethazine | Take 25 mg by mouth | | | | | Activ | | (PHENERGAN) 25 MG | every 8 (eight) | | | | | e | | tablet | hours as needed. | | | | | | + + +-------+---------+------+------+-------+ | ondansetron | Take 8 mg by mouth | | | | | Activ | | (ZOFRAN) 8 MG tablet | every 8 (eight) | | | | | e | | | hours as needed. | | | | | | + + +-------+---------+------+------+-------+ | naproxen | Take 500 mg by mouth | | | | | Activ | | (NAPROSYN) 500 MG | 2 (two) times daily | | | | | e | | tablet | with meals. | | | | | | + + +-------+---------+------+------+-------+ | | Take by mouth 4 | | | | | Activ | | DIPHENOXYLATE-ATROPI | (four) times daily. | | | | | e | | NE PO | | | | | | | + + +-------+---------+------+------+-------+ | Loperamide HCl | Take by mouth. | | | | | Activ | | (ANTI-DIARRHEAL PO) | | | | | | e | + + +-------+---------+------+------+-------+ | divalproex | Take 250 mg by mouth | | | | | Activ | | (DEPAKOTE) 250 MG EC | 2 (two) times | | | | | e | | tablet | daily. | | | | | | + + +-------+---------+------+------+-------+ | loratadine | Take 10 mg by mouth | | | | | Activ | | (CLARITIN) 10 MG | daily. | | | | | e | | tablet | | | | | | | + + +-------+---------+------+------+-------+ | raltegravir | Take 400 mg by mouth | | | | | Activ | | (ISENTRESS) 400 MG | 2 (two) times | | | | | e | | tablet | daily. | | | | | | + + +-------+---------+------+------+-------+ | trazodone | Take 100 mg by mouth | | | | | Activ | | (DESYREL) 100 MG | nightly. | | | | | e | | tablet | | | | | | | + + +-------+---------+------+------+-------+ | duloxetine | Take 30 mg by mouth | | | | | Activ | | (CYMBALTA) 30 MG | daily. | | | | | e | | capsule | | | | | | | + + +-------+---------+------+------+-------+ | ALBUTEROL IN | Inhale into the | | | | | Activ | | | lungs. | | | | | e | + + +-------+---------+------+------+-------+ | salmeterol | Inhale 1 puff into | | | | | Activ | | (SEREVENT) 50 | the lungs 2 (two) | | | | | e | | MCG/DOSE diskus | times daily. | | | | | | | inhaler | | | | | | | + + +-------+---------+------+------+-------+ | sumatriptan | Take 100 mg by mouth | | | | | Activ | | (IMITREX) 100 MG | every 8 (eight) | | | | | e | | tabletIndications: | hours as needed. | | | | | | | Migraine | Indications: | | | | | | | | Migraine Headache | | | | | | + + +-------+---------+------+------+-------+ + + +-------+ +------+------+-------+ | Hospital, Clinic, or | Ordered | Route | Frequency | Star | End | Statu | | Other Facility | Dose | | | t | Date | s | | Administered | | | | Date | | | | Medication | | | | | | | + + +-------+ +------+------+-------+ | sodium chloride | 10 mL | IV | PRN | 10/15 | | Activ | | 0.9 % flush 10 | | | | 02/03 | | e | | mLIndications: | | | | 14 | | | | Sacroiliac pain | | | | | | | + + +-------+ +------+------+-------+ | sodium chloride | 10 mL | IV | PRN | 01/15 | | Activ | | 0.9 % flush 10 | | | | 06/05 | | e | | mLIndications: | | | | 14 | | | | Lumbar radicular | | | | | | | | pain, Lumbar facet | | | | | | | | arthropathy (HCC), | | | | | | | | DDD (degenerative | | | | | | | | disc disease), | | | | | | | | lumbar | | | | | | | + + +-------+ +------+------+-------+ Active Problems + + + | Problem | Noted Date | + + + | 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 06/01/2013 he underwent a [...] | + + + + + | Sprain of sacroiliac ligament | 11/16/2012 | + + + | Gait instability | 11/09/2012 | + + + | Chronic pain syndrome | 11/09/2012 | + + + | Cervical radicular pain | 06/22/2012 | + + + + + | Last Assessment & Plan: This gentleman also has neck pain | | traveling to his right arm in the C6-7 dermatomal distribution. | | His cervical MRI showed scoliosis in his upper thoracic and | | cervical spine, degenerative disk and facet disease causing mild | | central stenosis and more left foraminal stenosis than right from | | C3-4 to C5-6, but moderate right foraminal stenosis at C6-7. We | | reviewed his MRI and discussed options. His symptoms are most | | likely due to the foraminal stenosis at C6-7. He has tried and | | failed other conservative measures. He is a candidate for a | | cervical epidural steroid injection. Will have to postpone this | | cervical epidural steroid injection until September since he has now | | have had 3 lumbar epidural steroid injections since 03-15-12. In | | September, he could go forward with another epidural steroid | | injection. He will call and make a f/u appointment in late August | | so that we can arrange for his cervical epidural steroid | | injection if he wishes. Would plan on a C7-T1 cervical epidural | | steroid injection under fluoroscopic guidance. | + + + + + | DDD (degenerative disc disease), cervical | 06/22/2012 | + + + + + | Last Assessment & Plan: Please see discussion under cervical | | radicular pain | + + + + + | Arthropathy of cervical facet joint (HCC) | 06/22/2012 | + + + + + | Last Assessment & Plan: Please see discussion under cervical | | radicular pain | + + + + + | Lumbar radicular pain | 05/23/2012 | + + + + + | Last Assessment & Plan: This patient has MRI documented | | lumbar degenerative disk disease with an L5-S1 disk protrusion | | that results in right L5 neural foraminal narrowing. There is | | also an annular tear at this level. The patient previously had | | bilateral lower extremity radicular pain and underwent a caudal | | epidural steroid injection with catheter targeting the right and | | left L5 and S1 nerve roots 07/05/2012. This was repeated on | | 01-25-14. Initially he did well for 1 week, but then his | | radicular and low back pain returned and is more severe and now | | he is complaining of fevers, night sweats and headache. Since | | his last MRI is over 2 years ago, will get an urgent MRI and labs | | to evaluate for infection. He will then return to review his | | MRI. | + + + + + | DDD (degenerative disc disease), lumbar | 05/23/2012 | + + + + + | Last Assessment & Plan: Please see discussion under lumbar | | radicular pain. | + + + + + | Lumbar facet arthropathy | 05/23/2012 | + + + + + | Last Assessment & Plan: Please see discussion under lumbar | | radicular pain. | + + + + + | Back pain, lumbosacral | 03/13/2012 | + + + | Human immunodeficiency virus (HIV) disease | 03/13/2012 | + + + | Hepatitis C virus infection | 03/13/2012 | + + + | Essential hypertension, benign | 03/13/2012 | + + + | Seizures | 03/13/2012 | + + + | IBS (irritable bowel syndrome) | 03/13/2012 | + + + Resolved Problems + + + + | Problem | Noted | Resolved | | | Date | Date | + + + + | Cervical facet joint syndrome (HCC) | 06/22/19 | | | | 13 | 3 | + + + + + + | Last Assessment & Plan: Please see discussion under cervical | | radicular pain | + + + + + + | Sacro-iliac pain | 05/23/19 | | | | 13 | 3 | + + + + + + | Last Assessment & Plan: This patient has tenderness along her | | sacroiliac joint upon palpation which is worsened with the | | maneuvers. This is consistent with sacroiliitis. She would be a | | candidate for a steroid injection in this region if they fails to | | receive relief from the injection discussed under lumbar | | radicular pain. | + + Encounters +--------+ + + + + | Date | Type | Specialty | Care Team | Description | +--------+ + + + + | 10/29/ | Documentati | | Alek Galindo MD | | | 2018 | on Only | | | | +--------+ + + + + from Last 3 Months Family History + + +------+ + | Medical History | Relation | Name | Comments | + + +------+ + | Cancer | Father | | | + + +------+ + | Diabetes type II | Father | | | + + +------+ + | Cancer | Mother | | | + + +------+ + | Diabetes type II | Mother | | | + + [...] + + + | Blood Pressure | 162/100 | 08/20/2016 2:59 PM PDT | + + + + | Pulse | 81 | 08/20/2016 2:59 PM PDT | + + + + | Temperature | 36.8 C (98.3 F) | 01/25/2014 9:46 AM PDT | + + + + | Respiratory Rate | 16 | 01/25/2014 10:40 AM PDT | + + + + | Oxygen Saturation | 97% | 08/20/2016 2:59 PM PDT | + + + + | Inhaled Oxygen | - | - | | Concentration | | | + + + + | Weight | 73.5 kg (162 lb) | 08/24/2016 2:44 PM PDT | + + + + | Height | 167.6 cm (5' 6") | 08/24/2016 2:44 PM PDT | + + + + | Body Mass Index | 26.15 | 08/24/2016 2:44 PM PDT | + + + + Plan of Treatment + + + + + | Health Maintenance | Due Date | Last Done | Comments | + + + + + | Colon Cancer | | | | | Screening | 7 | | | | (Colonoscopy) | | | | + + + + + | Vaccine: Influenza | | 02/24/2017, 03/09/2016, | | | (#1) | 8 | 02/09/2012, Additional history | | | [...] filefrom Last 3 Months Insurance + +--------+ +------+-------+ + | Payer | Benefi | Subscriber | Type | Phone | Address | | | t Plan | ID | | | | | | / | | | | | | | Group | | | | | + +--------+ +------+-------+ + | MEDICARE | MEDICA | [id number] | | | [address] | | | RE | | | | [place], [place] [address] | | | IP-OP | | | | | + +--------+ +------+-------+ + | COMMERCIAL OTHER | COMMER | [phone] | | | | | | CIAL | | | | | | | GENERI | | | | | | | C PLAN | | | | | + +--------+ +------+-------+ + | MEDICAID | MEDICA | [id number] | | | [address] | | | ID | | | | [place] | | | [place] | | | | [phone] | + +--------+ +------+-------+ + + +--------+ +--------+ + + | Guarantor Name | Accoun | Relation to | Date | Phone | Billing Address | | | t Type | Patient | of | | | | | | | | | | + +--------+ +--------+ + + | MICHAEL GILES | Person | Self [birth year] Home: | [address] | | | al/Fam | | 1966 | [phone] | [place] | | | [place] | | | [phone] | [address] | + +--------+ +--------+ + +
--- OUTSIDE RECORDS SUMMARY | ~2018-01-28 | XMS | Encounter Summary ---
Demographics + + + | Address | [address] | | | [place] [address] | + + + | Home Phone | | + + + | Preferred Language | Unknown | + + + | Marital Status | Single | + + + | Yarsani Affiliation | Unknown | + + + | Race | Unknown | + + + | Ethnic Group | Unknown | + + + Author + + + | Author | [facility] | + + + | Organization | [facility] | + + + | Address | [...] Team Providers + +------+ + | Care Fibrous Wallboard Inspector Name | Role | Phone | + +------+ + | Woody Martinez MD | PCP | | + +------+ + Encounter Details +--------+ + + + + | Date | Type | Department | Care Team | Description | +--------+ + + + + | 10/29/ | Documentati | [facility] | Alek Galindo MD | | | 2018 | on Only | [facility] | [address] | | | | | [address] | [place] [address] | | | | | [place], [place] | [phone] | | | | | [address] | | | | | | [phone] | | | +--------+ + + + [...]
--- OUTSIDE RECORDS SUMMARY | ~2018-01-28 | XMS | Clinical Summary ---
Demographics + + + | Address | [address] | | | [place] [address] | + + + | Home Phone | | + + + | Preferred Language | Unknown | + + + | Marital Status | Single | + + + | Alevism Affiliation | Unknown | + + + | Race | Unknown | + + + | Ethnic Group | Unknown | + + + Author + + + | Author | [facility] | + + + | Organization | [facility] | + + + | Address | [...] Team Providers + +------+ + | Care Crop Production Advisor Name | Role | Phone | + [...] +------+-------+ + | MEDICARE | MEDICA | [id number] | | | [address] | | | RE | | | | [place], [place] [address] | | | IP-OP | | | | | + +--------+ +------+-------+ + | COMMERCIAL OTHER | COMMER | [phone] | | | | | | CIAL | | | | | | | GENERI | | | | | | | C PLAN | | | | | + +--------+ +------+-------+ + | MEDICAID | MEDICA | [id number] | | | [address] | | | ID | | | | [place] | | | [place] | | | | [address] | + +--------+ +------+-------+ + + +--------+ +--------+ + + | Guarantor Name | Accoun | Relation to | Date | Phone | Billing Address | | | t Type | Patient | of | | | | | | | | | | + +--------+ +--------+ + + | MICHAEL GILES | Person | Self | [birth year] | Home: | [address] | | | al/Fam | | 1966 | [phone] | [place] | | | [place] | | | [phone] | [address] | + +--------+ +--------+ + +
--- OUTSIDE RECORDS SUMMARY | ~2018-01-28 | XMS | Clinical Summary ---
Demographics + + + | Address | [address] | | | [place] [address] | + + + | Home Phone | | + + + | Preferred Language | Unknown | + + + | Marital Status | Unmarried Domestic Partner | + + + | Yarsani Affiliation | NON | + + + [...] [place], [place] | | | | | [address] | | + + + + + Care Team Providers + +------+ + | Care Tube Teller Name | Role | Phone | + +------+ + | Jax Cabrera MD | PP | | + +------+ + Source Comments FAUSTO is fully live on both EpicCare Ambulatory and EpicCare InPatient.[facility] Allergies + + + + + [...] | | | | | | | ([facility]) | | | | | | | [...] | | | | | | | ([facility]) | | | | | | | [...] | | | | | | | ([facility]), Diarrhea, | | | | | | [...] | MEDICA | [phone] | Medica | [phone] | [address] | | | RE A & | | re | [phone] | [place] [address] | | | B | | | | | + +--------+ +--------+ + + | MEDICAID [place] | OHP | xxxxxxxx | Medica | [phone] [address] [address] | | | PLUS | | id | [phone] | [place] [address] | | | OPEN | | | | | | | CARD | | | | | + +--------+ +--------+ + + | CAREASSIST | CARE | [phone] | POS | [phone] | ATTN:TPA DESK [address] | | | ASSIST | | | [phone] | [address] [address] [place] | | | | | | | [place] [address] | + +--------+ +--------+ + + + [...] | | al/Fam | | 1966 | [phone] | [place] [address] | | | [place] | | | [phone] | | + +--------+ +--------+ + +
--- OUTSIDE RECORDS SUMMARY | ~2018-01-28 | XMS | Encounter Summary ---
Demographics + + + | Address | [address] | | | [place] [address] | + + + | Home Phone [...] + + | Author | [facility] | | | and [place] | + + + | Organization | [facility] | | | and [place] [...] [place], | | | | | [place] [address] | | + + + + + Care Team Providers + +------+ + | Care Personnel Psychologist Name | Role | Phone | + [...] | | | | CENTER [address] | [place], [place] | | | | | [place], [place] | [address] | | | | | [address] | | | | | | [phone] | | | +--------+ + + + [...] attachments cannot be sent through Care Everywhere.Tamara (Lithuanian)in this encounter Medications at Time of Discharge [...]
--- OUTSIDE RECORDS SUMMARY | ~2018-01-28 | XMS | Encounter Summary ---
Demographics + + + | Address | [address] | | | [place] [address] | + + + | Home Phone | | + + + | Preferred Language | Unknown | + + + | Marital Status | Single | + + + | Uatsdin Affiliation | Unknown | + + + | Race | Unknown | + + + | Ethnic Group | Unknown | + + + Author + + + | Author | [facility] | + + + | Organization | [facility] | + + + | Address | [...] Team Providers + +------+ + | Care Web Content Writer Name | Role | Phone | + +------+ + | Woody Martinez MD | PCP | | + +------+ + Encounter Details +--------+ + + + + | Date | Type | Department | Care Team | Description | +--------+ + + + + | 10/29/ | Documentati | [facility] | Alek Galindo MD | | | 2018 | on Only | [facility] | [address] | | | | | [address] | [place] [address] | | | | | [place], [place] | [phone] | | | | | [address] | | | | | | [phone] | | | +--------+ + + + [...]
[~2018-01-28 14:19] MED LIST changes: +ALBUTEROL2.5 MG/3 M INH; +BACLOFEN10 MG PO; +POTASSIUM CHLO20 ME1 PO; +TRUVADA 100 MG1 EACH PO; +XANAX0.5 MG PO
--- OUTSIDE RECORDS SUMMARY | 2018-01-28 14:24 | XMS ---
PreManage Notification: MICHAEL CHAVEZ Security [employer] Events No recent Security Events currently on file CRITERIA MET - Group Notification - 6 ED Visits in 6 Months - [facility] - 3 Facilities in 90 Days - [facility] - 2 Visits in 30 Days CARE PROVIDERS aJx Cabrera Primary Care Current PHONE: Unknown Primary Care Primary Care Current PHONE: [phone] Raymundo has no Care Guidelines for this patient. Care History Medical/Surgical 01/25/2018 [facility] Care Recommendation: - USE EXTREME CAUTION IN GIVING NARCOTICS TO THIS PATIENT. - Avoid Discharge Narcotic prescriptions if at all possible. Please use clinical judgement. This patient has had 5 or more Emergency Department visits in the last 12 months.\T\nbsp; Patient requires education on the scope and purpose of the ED as an acute care provider not a Primary Care Provider and should not be utilized for chronic conditions. These are guidelines and the provider should exercise clinical judgment when providing care. E.D. VISIT COUNT (12 MO.) [address] [place] [address] JOSE CARLOS Hernández TOTAL 10 NOTE: Visits indicate total known visits. ED/UCC VISIT TRACKING (12 MO.) 01/28/2018 14:20 JOSE CARLOS [place] TYPE: Emergency COMPLAINT: - MEDICAL CLEARANCE 01/24/2018 16:25 Maria G [place] TYPE: Emergency COMPLAINT: - SOB 01/24/2018 08:42 JOSE CARLOS [place] TYPE: Emergency COMPLAINT: - SOB DIAGNOSES: - Panic disorder [episodic paroxysmal anxiety] - Other rat exterminator (current) drug therapy - Allergy status to other drugs, medicaments and biological substances status - Shortness of breath - Epilepsy, unspecified, not intractable, without status epilepticus - Essential (primary) hypertension 01/24/2018 02:17 JOSE CARLOS [place] TYPE: Emergency COMPLAINT: - DIFFCULTY BREATHING DIAGNOSES: - Essential (primary) hypertension - Migraine, unspecified, not intractable, without status migrainosus - Shortness of breath - Allergy status to other drugs, medicaments and biological substances status - Other usp (current) drug therapy - Chronic obstructive pulmonary disease with (acute) exacerbation 01/21/2018 17:55 JOSE CARLOS [place] TYPE: Emergency COMPLAINT: - SOB DIAGNOSES: - Essential (primary) hypertension - Shortness of breath - Allergy status to other drugs, medicaments and biological substances status - Chronic obstructive pulmonary disease with (acute) exacerbation - [facility]okal[facility] DIAGNOSES: - left ankle injury - Pain in left ankle and joints of left foot - Ankle Injury 11/09/2017 10:01 JOSE CARLOS [place] TYPE: Emergency COMPLAINT: - POSS SEIZURE DIAGNOSES: - Essential (primary) hypertension - Unspecified convulsions - Strain of muscle, fascia and tendon at neck level, initial encounter - Allergy status to other drugs, medicaments and biological substances status - Fall on same level, unspecified, initial encounter - Other usp (current) drug therapy - Epilepsy, unspecified, not intractable, without status epilepticus 07/05/2017 09:11 JOSE CARLOS [place] TYPE: Emergency COMPLAINT: - CHEST PAIN DIAGNOSES: - Bipolar disorder, unspecified - Other usp (current) drug therapy - Other chest pain - Allergy status to other drugs, medicaments and biological substances status - Essential (primary) hypertension - Unspecified viral hepatitis C without hepatic coma - Anxiety disorder, unspecified 05/26/2017 10:14 JOSE CARLOS [place] TYPE: Emergency COMPLAINT: - FLU SYMPTOMS DIAGNOSES: - Allergy status to other drugs, medicaments and biological substances status - Chronic obstructive pulmonary disease, unspecified - Nausea with vomiting, unspecified - Acquired absence of other specified parts of digestive tract - Bipolar disorder, unspecified - Epilepsy, unspecified, not intractable, without status epilepticus - Anxiety disorder, unspecified - Other usp (current) drug therapy - Essential (primary) hypertension - Influenza due to other identified influenza virus with other respiratory manifestations 05/24/2017 17:36 Maria G [place] TYPE: Emergency COMPLAINT: - FLU - COUGH DIAGNOSES: 0. Cough 1. Influenza due to unidentified influenza virus with other respiratory manifestations 3. Epilepsy, unspecified, not intractable, without status epilepticus 5. Patient's other noncompliance with medication regimen 6. Elevated blood-pressure reading, without diagnosis of hypertension 6. Weakness 7. Elevated blood-pressure reading, without diagnosis of hypertension 7. Allergy status to other drugs, medicaments and biological substances status 8. Allergy status to other drugs, medicaments and biological substances status 8. Personal history of nicotine dependence 9. Personal history of nicotine dependence INPATIENT VISIT TRACKING (12 MO.) 01/24/2018 16:25 Maria G [place] TYPE: Medical Surgical COMPLAINT: - SOB [email or web address]
== END 2018-01-28 14:30 | disposition left against medical advice (07) ==
LOC: ED 14:19
DX: Z53.21 Procedure and treatment not carried out due to patient leaving prior to being seen by health care provider (principal)

== ENCOUNTER 2018-01-29 07:29 | Emergency (ER) | payer MEDICARE, OTHER ==
[~2018-01-29] VITALS: Ht 167.6 cm; Wt 69.4 kg
--- OUTSIDE RECORDS SUMMARY | ~2018-01-29 | XMS | Encounter Summary ---
Demographics + + + | Address | [address] | | | [place] [address] | + + + | Home Phone | | + + + | Preferred Language | Unknown | + + + | Marital Status | Single | + + + | Temple Affiliation | Unknown | + + + | Race | Unknown | + + + | Ethnic Group | Unknown | + + + Author + + + | Author | [facility] | + + + | Organization | [facility] | + + + | Address | Unknown | + + + | Phone | Unavailable | + + + Support + + +---------+ + | Name | Relationship | Address | Phone | + + +---------+ + | Gabriel Greenberg | ECON | Unknown | | + + +---------+ + | Detailed,Message | ECON | Unknown | | + + +---------+ + | Zain Patterson ECON | Unknown | | + + +---------+ + Care Team Providers + +------+ + | Care Aerospace Stress Engineer Name | Role | Phone | + +------+ + | Woody Martinez MD | PCP | | + +------+ + Encounter Details +--------+ + + + + | Date | Type | Department | Care Team | Description | +--------+ + + + + | 10/29/ | Documentati | [facility] | Alek Galindo MD | | | 2018 | on Only | [facility] | [address] | | | | | [address] | [place] [address] | | | | | [place], [place] | [phone] | | | | | [address] | | | | | | [phone] | | | +--------+ + + + [...] + +---------+ + | Alcohol Use | Drinks/We | oz/Week | Comments | | | ek | | | + + +---------+ + | No | | | | + + +---------+ + + + + | Sex Assigned at | Date Recorded | | | | + + + | Not on file | | + + + as of this encounter Plan of Treatment Not on fileas of this encounter Visit Diagnoses Not on filein this encounter"
--- OUTSIDE RECORDS SUMMARY | ~2018-01-29 | XMS | Encounter Summary ---
Demographics + + + | Address | [address] | | | [place] [address] | + + + | Home Phone | | + + + | Preferred Language | Unknown | + + + | Marital Status | Single | + + + | Pentecostal Affiliation | Unknown | + + + | Race | Unknown | + + + | Ethnic Group | Unknown | + + + Author + + + | Author | [facility] | + + + | Organization | [facility] | + + + | Address | [...] Team Providers + +------+ + | Care Bandoleer Packer Name | Role | Phone | + +------+ + | Woody Martinez MD | PCP | | + +------+ + Encounter Details +--------+ + + + + | Date | Type | Department | Care Team | Description | +--------+ + + + + | 10/29/ | Documentati | [facility] | Alek Galindo MD | | | 2018 | on Only | [facility] | [address] | | | | | [address] | [place] [address] | | | | | [place], [place] | [phone] | | | | | [address] | | | | | | [phone] | | | +--------+ + + + [...]
--- OUTSIDE RECORDS SUMMARY | ~2018-01-29 | XMS | Clinical Summary ---
Demographics + + + | Address | [address] | | | [place] [address] | + + + | Home Phone | | + + + | Preferred Language | Unknown | + + + | Marital Status | | + + + | Nondenominational Affiliation | 1013 | + + + | Race | Unknown | + + + | Ethnic Group | Unknown | + + + Author + + + | Author | [facility] | | | and [place] | + + + | Organization | [facility] | | | and [place] [...] [place], | | | | | [place] [address] | | + + + + + Care Team Providers + +------+ + | Care Stripping And Booking Machine Operator Name | Role | Phone [...] | + + + | Seizure disorder ([facility]) | 04/15/2016 | + + + | HIV (human immunodeficiency virus infection) ([facility]) | 04/14/2016 | + + + | [...] +--------+ +---------+ | MEDICARE | MEDICA | [id number] | Medica | [phone] | | | | RE | | re | [phone] | | | | PART A | | | | | | | AND B | | | | | + +--------+ +--------+ +---------+ | [place]ICAID [place] | MEDICA | [id number] | Medica | [phone] | | | [...] Self | [birth year] | Home: | [address] | | | al/Fam | | 1966 | [phone] | [place] [address] | | | arvin | | | [address] | | + +--------+ +--------+ + +
--- OUTSIDE RECORDS SUMMARY | ~2018-01-29 | XMS | Clinical Summary ---
Demographics + + + | Address | [address] | | | [place] [address] | + + + | Home Phone | | + + + | Preferred Language | Unknown | + + + | Marital Status | | + + + | Church Affiliation | 1013 | + + + | Race | Unknown | + + + | Ethnic Group | Unknown | + + + Author + + + | Author | [facility] | | | and [place] | + + + | Organization | [facility] | | | and [place] [...] [place], | | | | | [place] [address] | | + + + + + Care Team Providers + +------+ + | Care Fire Suppression Captain Name | Role | Phone | + [...] | + + + | Seizure disorder ([facility]) | 04/15/2016 | + + + | HIV (human immunodeficiency virus infection) ([facility]) | 04/14/2016 | + + + | [...] +--------+ +---------+ | MEDICARE | MEDICA | [id number] | Medica | [phone] | | | | RE | | re | [phone] | | | | PART A | | | | | | | AND B | | | | | + +--------+ +--------+ +---------+ | [place]ID [place] | MEDICA | [id number] | Medica | [phone] | | | [...] Self | [birth year] | Home: | [address] | | | al/Fam | | 1966 | [phone] | [place] [address] | | | arvin | | | [address] | | + +--------+ +--------+ + +
--- OUTSIDE RECORDS SUMMARY | ~2018-01-29 | XMS | Clinical Summary ---
Demographics + + + | Address | [address] | | | [place] [address] | + + + | Home Phone | | + + + | Preferred Language | Unknown | + + + | Marital Status | Unmarried Domestic Partner | + + + | Baptism Affiliation | NON | + + + [...] [place], [place] | | | | | [address] | | + + + + + Care Team Providers + +------+ + | Care Receiving Room Clerk Name | Role | Phone | + +------+ + | Jax Cabrera MD | PP | | + +------+ + Source Comments FAUSTO is fully live on both EpicCare Ambulatory and EpicCare InPatient.[facility] Allergies + + + + + [...] | | | | | ([facility]) | | | | | | [...] | | | | | ([facility]) | | | | | | [...] | | | | | ([facility]), Diarrhea, | | | | | [...] | MEDICA | [phone] | Medica | [phone] | [address] | | | RE A & | | re | [phone] | [place] [address] | | | B | | | | | + +--------+ +--------+ + + | MEDICAID [place] | OHP | xxxxxxxx | Medica | [phone] | [address] [address] | | | PLUS | | id | [phone] | [place] [address] | | | OPEN | | | | | | | CARD | | | | | + +--------+ +--------+ + + | CAREASSIST | CARE | xxxx | POS | [phone] | ATTN:TPA DESK [address] | | | ASSIST | | | [phone] | [address] [address] [place] | | | | | | | [place] [address] | + +--------+ +--------+ + + + +--------+ +--------+ + + | Guarantor Name | Accoun | Relation to | Date | Phone | Billing Address | | | t Type | Patient | of | | | | | | | | | | + +--------+ +--------+ + + | MCIHAEL GILES | Person | Self | [birth year] | Home: | [address] | | | al/Fam | | 1966 | [phone] | [place] [address] | | | [place] | | | [address] | | + +--------+ +--------+ + +
--- OUTSIDE RECORDS SUMMARY | ~2018-01-29 | XMS | Clinical Summary ---
Demographics + + + | Address | [address] | | | [place] [address] | + + + | Home Phone | | + + + | Preferred Language | Unknown | + + + | Marital Status | Unmarried Domestic Partner | + + + | Christianity Affiliation | NON | + + + [...] [place], [place] | | | | | [address] | | + + + + + Care Team Providers + +------+ + | Care Heavy Equipment Technician Name | Role | Phone | + +------+ + | Jax Cabrera MD | PP | | + +------+ + Source Comments FAUSTO is fully live on both EpicCare Ambulatory and EpicCare InPatient.[facility] Allergies + + + + [...] | | | | | ([facility]) | | | | | | [...] | | | | | ([facility]) | | | | | | [...] | | | | | ([facility]), Diarrhea, | | | | | [...] | MEDICA | [phone] | Medica | [phone] | [address] | | | RE A & | | re | [phone] | [place] [address] | | | B | | | | | + +--------+ +--------+ + + | [place]ICAID [place] | OHP | xxxxxxxx | Medica | [phone] | [address] [address] | | | PLUS | | id | [phone] | [place] [address] | | | OPEN | | | | | | | CARD | | | | | + +--------+ +--------+ + + | CAREASSIST | CARE | xxxx | POS | [phone] | ATTN:TPA DESK [address] | | | ASSIST | | | [phone] | [address] [address] [place] | | | | | | | [place] [address] | + +--------+ +--------+ + + + [...] | | al/Fam | | 1966 | [phone] | [place] [address] | | | [place] | | | [address] | | + +--------+ +--------+ + +
--- OUTSIDE RECORDS SUMMARY | ~2018-01-29 | XMS | Clinical Summary ---
Demographics + + + | Address | [address] | | | [place] [address] | + + + | Home Phone | | + + + | Preferred Language | Unknown | + + + | Marital Status | Single | + + + | Mormonism Affiliation | Unknown | + + + | Race | Unknown | + + + | Ethnic Group | Unknown | + + + Author + + + | Author | [facility] | + + + | Organization | [facility] | + + + | Address | [...] Providers + +------+ + | Care Rn Ante Partum Name | Role | Phone | + [...] +------+-------+ + | MEDICARE | MEDICA | [id number] | | | [address] | | | RE | | | | [place], [place] [address] | | | IP-OP | | | | | + +--------+ +------+-------+ + | COMMERCIAL OTHER | COMMER | [phone] | | | | | | CIAL | | | | | | | GENERI | | | | | | | C PLAN | | | | | + +--------+ +------+-------+ + | MEDICAID | MEDICA | [id number] | | | [address] | | | ID | | | | [place] | | | [place] | | | | [address] | + +--------+ +------+-------+ + + +--------+ +--------+ + + | Guarantor Name | Accoun | Relation to | Date | Phone | Billing Address | | | t Type | Patient | of | | | | | | | | | | + +--------+ +--------+ + + | MICHAEL GILES | Person | Self | [birth year] | Home: | [address] | | | al/Fam | | 1966 | [phone] | [place] | | | [place] | | | [phone] | [address] | + +--------+ +--------+ + +
--- OUTSIDE RECORDS SUMMARY | ~2018-01-29 | XMS | Encounter Summary ---
Demographics + + + | Address | [address] | | | [place] [address] | + + + | Home Phone [...] Author | [facility] | | | and [place] | + + + | Organization | [facility] | | | and [place] [...] [place], | | | | | [place] [address] | | + + + + + Care Team Providers + +------+ + | Care Client Onboarding Analyst Name | Role | Phone | [...] | | | | CENTER [address] | [place], [place] | | | | | [place], [place] | [address] | | | | | [address] | | | | | | [phone] | | | +--------+ + + + [...] attachments cannot be sent through Care Everywhere.Tamara (Burundian)in this encounter Medications at Time of Discharge [...]
--- OUTSIDE RECORDS SUMMARY | ~2018-01-29 | XMS | Encounter Summary ---
Demographics + + + | Address | [address] | | | [place] [address] | + + + | Home Phone [...] | [facility] | | | and [place] | + + + | Organization | [facility] | | | and [place] [...] [place], | | | | | [place] [address] | | + + + + + Care Team Providers + +------+ + | Care Fashion Intern Name | Role | Phone | + [...] | | | | CENTER [address] | [place], [place] | | | | | [place], [place] | [address] | | | | | [address] | | | | | | [phone] | | | +--------+ + + + [...] attachments cannot be sent through Care Everywhere.Tamara (Monegasque)in this encounter Medications at Time of Discharge [...]
--- OUTSIDE RECORDS SUMMARY | ~2018-01-29 | XMS | Clinical Summary ---
Demographics + + + | Address | [address] | | | [place] [address] | + + + | Home Phone | | + + + | Preferred Language | Unknown | + + + | Marital Status | Single | + + + | Church Affiliation | Unknown | + + + | Race | Unknown | + + + | Ethnic Group | Unknown | + + + Author + + + | Author | [facility] | + + + | Organization | [facility] | + + + | Address | [...] Team Providers + +------+ + | Care Building Drafting Officer Name | Role | Phone | [...] +------+-------+ + | MEDICARE | MEDICA | [id number] | | | [address] | | | RE | | | | [place], [place] [address] | | | IP-OP | | | | | + +--------+ +------+-------+ + | COMMERCIAL OTHER | COMMER | [phone] | | | | | | CIAL | | | | | | | GENERI | | | | | | | C PLAN | | | | | + +--------+ +------+-------+ + | MEDICAID | MEDICA | [id number] | | | [address] | | | ID | | | | [place] | | | [place] | | | | [address] | + +--------+ +------+-------+ + + +--------+ +--------+ + + | Guarantor Name | Accoun | Relation to | Date | Phone | Billing Address | | | t Type | Patient | of | | | | | | | | | | + +--------+ +--------+ + + | MICHAEL GILES | Person | Self | [birth year] | Home: | [address] | | | al/Fam | | 1966 | [phone] | [place] | | | [place] | | | [phone] | [address] | + +--------+ +--------+ + +
--- OUTSIDE RECORDS SUMMARY | 2018-01-29 07:34 | XMS ---
PreManage Notification: MICHAEL CHAVEZ Security Veterinary Laboratory Technician Events No recent Security Events currently on file CRITERIA MET - Group Notification - 6 ED Visits in 6 Months - [facility] - 3 Facilities in 90 Days - [facility] - 2 Visits in 30 Days CARE PROVIDERS Jax Cabrera Primary Care Current PHONE: Unknown Primary Care Primary Care Current PHONE: [phone] Raymundo has no Care Guidelines for this patient. Care History Medical/Surgical 01/25/2018 [facility] Care Recommendation: - USE EXTREME CAUTION [...] VISIT COUNT (12 MO.) 2 Maria G Andjuar 1 [place] Moonachie MJannetJannet 8 JOSE CARLOS Hernández TOTAL 11 NOTE: Visits indicate total known visits. ED/UCC VISIT TRACKING (12 MO.) 01/29/2018 07:29 JOSE CARLOS [place] TYPE: Emergency COMPLAINT: - BLOOD PRESSURE ISSUES 01/28/2018 14:20 [facility] CARLOS [place] TYPE: Emergency COMPLAINT: - MEDICAL CLEARANCE 01/24/2018 16:25 Maria G [place] TYPE: Emergency COMPLAINT: - SOB 01/24/2018 08:42 JOSE CARLOS [place] TYPE: Emergency COMPLAINT: - SOB DIAGNOSES: - Panic disorder [episodic paroxysmal anxiety] - Other custodial (current) drug therapy - Allergy status to [...] medicaments and biological substances status - Other moth exterminator (current) drug therapy - Chronic obstructive pulmonary disease with (acute) exacerbation 01/21/2018 17:55 JOSE CARLOS [place] TYPE: Emergency COMPLAINT: - SOB DIAGNOSES: - Essential (primary) hypertension - Shortness of breath - Allergy status to other drugs, medicaments and biological substances status - Chronic obstructive pulmonary disease with (acute) exacerbation - Hypokalemia [facility]2017 [facility] [place] DIAGNOSES: - left ankle [...] same level, unspecified, initial encounter - Other moth exterminator (current) drug therapy - Epilepsy, unspecified, not intractable, without status epilepticus 07/05/2017 09:11 JOSE CARLOS [place] TYPE: Emergency COMPLAINT: - CHEST PAIN DIAGNOSES: - Bipolar disorder, unspecified - Other moth exterminator (current) drug therapy - Other chest pain [...] epilepticus - Anxiety disorder, unspecified - Other custodial (current) drug therapy - Essential (primary) hypertension [...] [place] TYPE: Medical Surgical COMPLAINT: - SOB [email or web address]
--- NOTE | 2018-01-29 21:12 | EKG ---
[facility] [address] [place] [address] Signed Normal sinus rhythm Minimal voltage criteria for LVH, may be normal variant Borderline ECG Confirmed by GÓMEZ MORENO MD ([id number]) on 01/29/2018 9:12:10 PM Electronically Signed By: GÓMEZ MORENO MD 01/29/182111 PATIENT NAME: MICHAEL CHAVEZ PILLO Electrocardiogram DATE OF : 67 PHYSICIAN: GÓMEZ MORENO MD REPORT #: [id number] REPORT IS CONFIDENTIAL AND NOT TO BE RELEASED WITHOUT AUTHORIZATION
== END 2018-01-29 09:34 | disposition home or self-care (01) ==
LOC: ED 07:29
DX: F41.9 Anxiety disorder, unspecified (principal); J44.1 Chronic obstructive pulmonary disease with (acute) exacerbation; I10 Essential (primary) hypertension; B20 Human immunodeficiency virus [HIV] disease; Z88.8 Allergy status to other drugs, medicaments and biological substances; Z79.899 Other long term (current) drug therapy
CPT/HCPCS: 36415; 71045; 80053; 84484; 85025; 93005; 93010; 94640; 99285; J7512

== ENCOUNTER 2018-06-02 11:17 | Emergency (ER) | payer MEDICARE, OTHER ==
[~2018-06-02] VITALS: Ht 167.6 cm; Wt 69.4 kg
--- OUTSIDE RECORDS SUMMARY | 2018-06-02 13:14 | XMS ---
PreManage Notification: MICHAEL CHAVEZ Security Paramedic Rn Events 1 event(s) in the past 18 months Most recent security events: Elopement at [facility] 01/28/2018 14:20 - Patient eloped before treatment completed. Details: LW CRITERIA MET - Group Notification - 6 ED Visits in 6 Months CARE PROVIDERS Nazanin Fountain Robotics Technologist/Jewel Cupping Machine Operator 09/21/2017-Current PHONE: [phone] Nazanin Fountain Primary Care 09/21/2017-Current PHONE: [phone] Jax Cabrera Primary Care Current PHONE: Unknown Primary Care Primary Care Current PHONE: [phone] Raymundo has no Care Guidelines for this patient. Care History Medical/Surgical 01/31/2018 [facility] - CHW is unable to contact patient on patient friends phone number provided. - Please have patient provide an update on contact information. - Or provide CHW contact Katy [phone] so CHW can help patient connect to community resources. 01/25/2018 [facility] Care Recommendation: - USE EXTREME CAUTION [...] providing care. E.D. VISIT COUNT (12 MO.) 1 [facility] G [facility]dujar 1 [facility] 8 [facility] TOTAL 10 NOTE: Visits indicate total known visits. ED/UCC VISIT TRACKING (12 MO.) 06/02/2018 11:18 [facility] [place] TYPE: Emergency COMPLAINT: - MEDICATON REACTION 01/29/2018 07:29 [facility] [place] TYPE: Emergency COMPLAINT: - BLOOD PRESSURE ISSUES DIAGNOSES: - Restlessness and agitation - Other senior living (current) drug therapy - Chronic obstructive pulmonary disease with (acute) exacerbation - Essential (primary) hypertension - Anxiety disorder, unspecified - Allergy status to other drugs, medicaments and biological substances status 01/28/2018 14:20 [facility] [place] TYPE: Emergency COMPLAINT: - MEDICAL CLEARANCE DIAGNOSES: - Procedure and treatment not carried out due to patient leaving prior to being seen by health care provider - Encounter for other general examination 01/24/2018 16:25 Maria G [place] TYPE: Emergency COMPLAINT: - SOB 01/24/2018 08:42 JOSE CARLOS [place] TYPE: Emergency COMPLAINT: - SOB DIAGNOSES: - Panic disorder [episodic paroxysmal anxiety] - Other terminal system operator (current) drug therapy - Allergy status to other drugs, medicaments and biological substances status - Shortness of breath - Epilepsy, unspecified, not intractable, without status epilepticus - Essential (primary) hypertension 01/24/2018 02:17 JOSE CARLOS [place] TYPE: Emergency COMPLAINT: - DIFFCULTY BREATHING DIAGNOSES: - Essential (primary) hypertension - Migraine, unspecified, not intractable, without status migrainosus - Shortness of breath - Allergy status to other drugs, medicaments and biological substances status - Other senior living (current) drug therapy - Chronic obstructive pulmonary disease with (acute) exacerbation 01/21/2018 17:55 JOSE CARLOS [place] TYPE: Emergency COMPLAINT: - SOB DIAGNOSES: - Essential (primary) hypertension - Shortness of breath - Allergy status to other drugs, medicaments and biological substances status - Chronic obstructive pulmonary disease with (acute) exacerbation - Hypokalemia [facility]10[facility]2017 [facility] DIAGNOSES: - left ankle [...] same level, unspecified, initial encounter - Other terminal system operator (current) drug therapy - Epilepsy, unspecified, not intractable, without status epilepticus 07/05/2017 09:11 JOSE CARLOS [place] TYPE: Emergency COMPLAINT: - CHEST PAIN DIAGNOSES: - Bipolar disorder, unspecified - Other terminal system operator (current) drug therapy - Other chest pain - Allergy status to other drugs, medicaments and biological substances status - Essential (primary) hypertension - Unspecified viral hepatitis C without hepatic coma - Anxiety disorder, unspecified INPATIENT VISIT TRACKING (12 MO.) 01/24/2018 16:25 Maria G [facility] TYPE: Medical Surgical COMPLAINT: - SOB DIAGNOSES: 0. Shortness of breath 1. Chronic obstructive pulmonary disease with acute lower respiratory infection 3. Acute bronchitis due to rhinovirus 4. Chronic obstructive pulmonary disease with (acute) exacerbation 5. Cannabis dependence, uncomplicated 6. Bipolar disorder, unspecified 7. Epilepsy, unspecified, not intractable, without status epilepticus 8. Do not resuscitate 9. Polyneuropathy, unspecified 10. Noninfective gastroenteritis and colitis, unspecified 11. Allergy status to other drugs, medicaments and biological substances status 12. Allergy status to other anti-infective agents status [email or web address]
[2018-06-02] MEDS ORDERED: CYMBALTA30 MG PO (13:19)
== END 2018-06-02 13:32 | disposition home or self-care (01) ==
LOC: ED 11:17
DX: R42 Dizziness and giddiness (principal); R55 Syncope and collapse; J00 Acute nasopharyngitis [common cold]; T43.215A Adverse effect of selective serotonin and norepinephrine reuptake inhibitors, initial encounter; B20 Human immunodeficiency virus [HIV] disease; I10 Essential (primary) hypertension; G40.909 Epilepsy, unspecified, not intractable, without status epilepticus; G57.93 Unspecified mononeuropathy of bilateral lower limbs; J44.9 Chronic obstructive pulmonary disease, unspecified; F43.10 Post-traumatic stress disorder, unspecified; F31.9 Bipolar disorder, unspecified; F41.9 Anxiety disorder, unspecified; Z86.19 Personal history of other infectious and parasitic diseases; Z88.8 Allergy status to other drugs, medicaments and biological substances; Z79.899 Other long term (current) drug therapy
CPT/HCPCS: 99283

== ENCOUNTER 2019-11-25 18:12 | Emergency (ER) | payer MEDICARE, OTHER ==
[~2019-11-25] VITALS: Ht 167.6 cm; Wt 69.4 kg
--- OUTSIDE RECORDS SUMMARY | ~2019-11-25 | XMS | Encounter Summary ---
Demographics + + + | Address | [address] | | | [place] [address] | + + + | Home Phone | | + + + | Preferred Language | Unknown | + + + | Marital Status | | + + + | Cheondoism Affiliation | 1013 | + + + | Race | Unknown | + + + | Ethnic Group | Unknown | + + + Author + + + | Author | [facility] | | | and [place] | + + + | Organization | [facility] | | | and [place] | + + + | Address | Unknown | + + + | Phone | Unavailable | + + + Support + + + + + | Name | Relationship | Address | Phone | + + + + + | Gabrielsusan Greenberg | ECON | [address] | | | | | [place] | | | | | [address] | | + + + + + Care Team Providers + +------+ + | Care Supervisor Pipe Finishing Name | Role | Phone | + +------+ + | Jax Cabrera MD | PCP | | + +------+ + Reason for Visit + +--------+ + | Reason | Onset | Comments | | | Date | | + +--------+ + | Follow-up | 11/05/ | | | | 2019 | | + +--------+ + Encounter Details +--------+ + + + + | Date | Type | Department | Care Team | Description | +--------+ + + + + | 11/05/ | Telephone | DLE | Deyvi Kovacs, | Follow-up | | 2019 | | [facility] | [facility] [address] | | | | | [address] | | | | | [address] | [place] [address] | | | | | [place], [place] | [phone] | | | | | [address] | | | | | | [phone] | | | +--------+ + + + + Social History + +-------+ +--------+------+ | Tobacco Use | Types | Packs/Day | Years | Date | | | | | Used | | + +-------+ +--------+------+ | Never Smoker | | | | | + +-------+ +--------+------+ + +---+---+---+ | Smokeless Tobacco: | | | | | Never Used | | | | + +---+---+---+ + + +---------+ + | Alcohol Use | Drinks/Week | oz/Week | Comments | + + +---------+ + | No | 0 Standard drinks | 0.0 | | | | or equivalent | | | + + +---------+ + + + + | Sex Assigned at | Date Recorded | | | | + + + | Not on file | | + + + documented as of this encounter Miscellaneous Notes Telephone Encounter - Thelma Subramanian, Mastercam Programmer - 11/07/2019 1:29 PM PDTSpoke wi patient and he would like to talk with Deyvi about the neck pain that radiates into the shoulder and down the arm into his hand. I booked an appointment for 11/13 @ 0925am. Jose etienne signed by Thelma Subramanian Mastercam Programmer at 11/07/2019 1:29 PM PDTTelephone Jackson landis - Thelma Subramanian Mastercam Programmer - 11/07/2019 1:26 PM PDT LEIA Bartlett sent to Thelma Subramanian Mastercam Programmer Caller: Unspecified (Yesterday, 10:54 AM) I guess it depends on what Bradley is looking for. If he wants to discuss injections he fina l need to follow up with me too. If he wants to see Laraiso first that's ok too. Thanks! A elep antwon Encounter - Lizbeth Barrera - 11/06/2019 3:35 PM PDTRandall, is calling again for Follo w-up and would like a call back. Additional Call Details: Calling again to schedule follow up. Please call Ivan back at [phone] elephone Encounter - Ronna Meza - 11/06/2019 10:54 AM PDTRandy, is calling regarding Follow-up and would like a call back. Additional Call Details: Requesting call back to schedule follow up appointment. Patient s tated he is having redness and some pain and is also needing to schedule another injection i f possible. Please contact new mobile number listed. Okay to leave detailed message. [phone] If this is a symptom based call, was patient offered triage? Not Applicable If this is a symptom based call and you were unable to immediately transfer the call to a mila mcgill steam box operator was caller made aware that if at any time he feels it is an emergency they alec uld call 911 or go to the nearest emergency room? not applicable documented in this encounter Plan of Treatment +--------+---------+ + + + | Date | Type | Specialty | Care Team | Description | +--------+---------+ + + + | 12/05/ | Office | Pain Medicine | Vitaliy Mendoza, | | 2019 | Visit | | DO [address] | | | | | | [place] | | | | | | [phone] | | | | | | | | +--------+---------+ + + + documented as of this encounter Visit Diagnoses Not on filedocumented in this encounter"
--- OUTSIDE RECORDS SUMMARY | ~2019-11-25 | XMS | Encounter Summary ---
Demographics + + + | Address | [address] | | | [place] [address] | + + + | Home Phone | | + + + | Preferred Language | Unknown | + + + | Marital Status | | + + + | Mu-Ism Affiliation | 1013 | + + + | Race | Unknown | + + + | Ethnic Group | Unknown | + + + Author + + + | Author | [facility] | | | and [place] | + + + | Organization | [facility] | | | and [place] | + + + | Address | Unknown | + + + | Phone | Unavailable | + + + Support + + + + + | Name | Relationship | Address | Phone | + + + + + | Gabriel Greenberg | ECON | [address] | | | | | [place] | | | | | [address] | | + + + + + Care Team Providers + +------+ + | Care Washery Engineer Name | Role | Phone | + +------+ + PCP | Unavailable | + +------+ + Encounter Details +--------+ + + + + | Date | Type | Department | Care Team | Description | +--------+ + + + + | 07/08/ | Hospital | [facility] | [facility] [place] [facility] | | | 2001 - | Encounter | [facility] | [address] | | | | | HLTH ADULT [address] | [place] | | | 07/15/ | | [address] [place] | [address] | | | 2001 | | [address] | [phone] | | | | | [phone] | | | | | | | Daniele [place]es | | +--------+ + + + + Social History + +-------+ +--------+------+ | Tobacco Use | Types | Packs/Day | Years | Date | | | | | Used | | + +-------+ +--------+------+ | Never Assessed | | | | | + +-------+ +--------+------+ + + + | Sex Assigned at | Date Recorded | | | | + + + | Not on file | | + + + documented as of this encounter Plan of Treatment +--------+---------+ + + + | Date | Type | Specialty | Care Team | Description | +--------+---------+ + + + | 12/05/ | Office | Pain Medicine | Vitaliy Mendoza, | | | 2019 | Visit | | DO [address] | | | | | | [place] | | | | | | [phone] | | | | | | | | +--------+---------+ + + + documented as of this encounter Visit Diagnoses Not on filedocumented in this encounter"
--- OUTSIDE RECORDS SUMMARY | ~2019-11-25 | XMS | Encounter Summary ---
Demographics + + + | Address | [address] | | | [place] [address] | + + + | Home Phone | | + + + | Preferred Language | Unknown | + + + | Marital Status | | + + + | Buddhism Affiliation | 1013 | + + + | Race | Unknown | + + + | Ethnic Group | Unknown | + + + Author + + + | Author | [facility] | | | and [place] | + + + | Organization | [facility] | | | [...] [place] | | | | | [address] | | + + + + + Care Team Providers + +------+ + | Care Seal Mixing Operator Name | Role | Phone | + +------+ + | Jax Cabrera MD | PCP | | + +------+ + Reason for Visit Service/Procedure (Routine) +--------+--------+ + + + + | Status | Reason | Specialty | Diagnoses / | Referred By | Referred To | | | | | Procedures | Contact | Contact | +--------+--------+ + + + + | Closed | | Anesthesiolog | Diagnoses | Dong, | Dong, | | | | y / Pain | | MD Skyler | MD Skyler | | | | Medicine | Radiculopath | [address] | | | | | y, cervical | [address] | [address] | | | | | region | DRIVE SU[address] | B | | | | | Other | B | [place], [place] | | | | | cervical | [place], | [address] | | | | | disc | [place] [address] | Phone: | | | | | degeneration | Phone: | [phone] | | | | | , | [phone] | Fax: | | | | | unspecified | Fax: | [phone] | | | | | cervical | [phone] | | | | | | region | | | | | | | Procedures | | | | | | | [place] NJX | | | | | | | DX/THER SBST | | | | | | | INTRLMNR | | | | | | | CRV/THRC | | | | | | | W/IMG GDN | | | | | | | REPEAT C6-C7 | | | | | | | MARK | | | +--------+--------+ + + + + Encounter Details +--------+ + + + + | Date | Type | Department | Care Team | Description | +--------+ + + + + | 07/27/ | Hospital | [facility] | Skyler Dong, | Cervical radicular | | 2020 | Encounter | INTERVENTIONAL PAIN | MD [address] | pain (Primary Dx); | | | | MGMT [address] | [address] | Degeneration of | | | | DR [address], | [place] [address] | intervertebral disc | | | | [place] [address] | [phone] | of cervical region; | | | | [phone] | | Facet arthritis of | | | | | | cervical region | +--------+ + + + + Social [...] + + documented as of this encounter Last Filed Vital Signs + + + + + | Vital Sign | Reading | Time Taken | Comments | + + + + + | Blood Pressure | 130/88 | 07/28/2019 7:50 AM | | | | | PDT | | + + + + + | Pulse | 87 | 07/28/2019 7:50 AM | | | | | PDT | | + + + + + | Temperature | 37.9 C (100.3 F) | 07/28/2019 7:40 AM | | | | | PDT | | + + + + + | Respiratory Rate | 16 | 07/28/2019 7:50 AM | | | | | PDT | | + + + + + | Oxygen Saturation | 96% | 07/28/2019 7:50 AM | | | | | PDT | | + + + + + | Inhaled Oxygen | - | - | | | Concentration | | | | + + + + + | Weight | - | - | | + + + + + | Height | - | - | | + + + + + | Body Mass Index | - | - | | + + + + + documented in this encounter Discharge Instructions Patient Instructions Bhavya Nugent RN - 07/28/2019 7:15 AM PDTEpidural Steroid Inject ion Discharge Instructions Activity If you received medication for sedation-analgesia, you may experience drowsiness, dizziness , or blurred vision. You are instructed to: ? Rest for 24 hours; avoid strenuous activity. ? DO NOT drive. Do not perform other tasks in which you are required to be alert and coordi nated for the remainder of the day. ? Do not make important decisions today. ? Do not drink alcoholic beverages including beer, wine, etc. ? If you are diabetic, monitor your blood glucose ? Remove your dressing 2-3 hours after your procedure Medications May resume regular medications Diet You may eat a regular diet. If you are experiencing nausea, limit yourself to clear liquids then slowly advance your diet. Pain Control You may experience mild discomfort from the insertion of the needle for your injection. You may apply an ice pack as needed. Put the ice pack on only while you are awake for 20 minute s on, 20 minutes off. No heat including hot pads, heated seats, hot tubs, hot showers, etc. FOR 3 DAYS Dressing Keep the back dry for 24 hours. Effects It can take up to two weeks to feel the effects of the procedure. Follow-up Appointment Schedule an appointment with your physician as instructed. Report to your doctor if you experience: ? Persistent weakness in arms / legs. ? Continuous bleeding from the injection site. ? Persistent headache longer than 24 hours. ? Nausea / vomiting. ? Fever / chills. ? Any problems and / or concerns regarding this procedure. Dr. Skyler Dong and his staff can be contacted at [phone]. If you are unable to contact your doctor or their associate, you may come to the Emergency Department at [facility]. These instructions have been explained to the patient and escort. The patient received a co py and patient / escort verbalized understanding of these instructions documented in this encounter Medications at Time of Discharge + + + +---------+ + + | Medication | Sig | Dispensed | Refills | Start | End Date | | | | | | Date | | + + + +---------+ + + | albuterol 90 | Inhale 1-2 puffs by | | 0 | 06/17/19 | | | mcg/puff inhaler | mouth every six | | | 17 | | | | hours as needed. | | | | | | | Contact provider if | | | | | | | using >1 | | | | | | | inhaler/month. | | | | | | | (Pharmacy: please | | | | | | | disp whichever | | | | | | | albuterol is on | | | | | | | formulary) | | | | | + + + +---------+ + + | albuterol 90 | Inhale into the | | 0 | 06/17/19 | | | mcg/puff inhaler | lungs. | | | 17 | | + + + +---------+ + + | | Inhale 2 puffs into | | 0 | | | | albuterol-ipratropiu | the lungs every 6 | | | | | | m (COMBIVENT) 103-18 | hours as needed for | | | | | | mcg/puff inhaler | Wheezing. | | | | | + + + +---------+ + + | amLODIPine | Take 5 mg by mouth. | | 0 | 04/16/20 | | | (NORVASC) 5 mg | | | | 16 | | | tablet | | | | | | + + + +---------+ + + | amLODIPine | Take 1 tablet by | 30 | 11 | 04/16/20 | | | (NORVASC) 5 mg | mouth Daily. | tablet | | 16 | | | tablet | | | | | | + + + +---------+ + + | crofelemer | Take 1 tablet by | | 0 | 11/24/19 | | | (FULYZAQ) 125 mg EC | mouth every twelve | | | 17 | | | tablet | hours. | | | | | + + + +---------+ + + | cyclobenzaprine | Take 10 mg by mouth | | 0 | | | | (FLEXERIL) 10 mg | 3 (three) times | | | | | | tablet | daily as needed for | | | | | | | Muscle spasms. | | | | | + + + +---------+ + + | Dexlansoprazole | Take 60 mg by mouth | | 0 | 06/08/19 | | | (DEXILANT) 60 MG | Daily. | | | 12 | | | CPDR | | | | | | + + + +---------+ + + | dexlansoprazole | Take 1 capsule by | | 0 | 11/10/19 | | | (DEXILANT) [address] | mouth every morning | | | 19 | | | capsule | before breakfast. | | | | | + + + +---------+ + + | divalproex | Take 500 mg by mouth | | 0 | | | | (DEPAKOTE ER) 250 mg | 2 (two) times | | | | | | 24 hr tablet | daily. | | | | | + + + +---------+ + + | divalproex | Rx per PCP. Per | | 0 | 05/01/20 | | | (DEPAKOTE) [address] | patient takes 1 | | | 16 | | | tablet | tablet BID for | | | | | | | seizure d/o. | | | | | + + + +---------+ + + | divalproex | Take 250 mg by mouth | | 0 | 02/02/20 | | | (DEPAKOTE) 250 mg EC | Daily. | | | 12 | | | tablet | | | | | | + + + +---------+ + + | dolutegravir | Take 100 mg by mouth | | 0 | 06/17/19 | | | (TIVICAY) 50 mg | daily. | | | 17 | | | tablet | | | | | | + + + +---------+ + + | DULoxetine | Take 30 mg by mouth | | 0 | 02/02/20 | | | (CYMBALTA) 30 mg | Daily. | | | 12 | | | capsule | | | | | | + + + +---------+ + + | | TABS: one tablet | | 0 | 02/02/20 | | | Emtricitabine-Tenofo | daily | | | 12 | | | vir (TRUVADA PO) | | | | | | + + + +---------+ + + | | Take 1 tablet by | | 0 | 06/17/19 | | | emtricitabine-tenofo | mouth once daily. | | | 17 | | | vir alafenamide | | | | | | | (DESCOVY) 200-25 mg | | | | | | | per tablet | | | | | | + + + +---------+ + + | | Take 1 tablet by | | 0 | | | | emtricitabine-tenofo | mouth daily. | | | | | | vir DF (TRUVADA) | | | | | | | 200-300 mg per | | | | | | | tablet | | | | | | + + + +---------+ + + | | Inhale 1 puff into | | 0 | | | | fluticasone-vilanter | the lungs daily. | | | | | | ol (BREO ELLIPTA) | | | | | | | 100-25 mcg/puff | | | | | | | inhaler | | | | | | + + + +---------+ + + | hydrOXYzine | Take 25 mg by mouth | | 0 | | | | hydrochloride | 3 (three) times | | | | | | (ATARAX) 25 mg | daily as needed for | | | | | | tablet | Itching. | | | | | + + + +---------+ + + | loratadine | Take 10 mg by mouth | | 0 | | | | (CLARITIN) 10 mg | daily as needed. | | | | | | tablet | | | | | | + + + +---------+ + + | loratadine (GNP | Take 10 mg by mouth | | 0 | 02/02/20 | | | LORATADINE) 10 mg | Daily. | | | 12 | | | tablet | | | | | | + + + +---------+ + + | methylPREDNISolone | Take by mouth. | | 0 | | | | (MEDROL DOSEPAK) 4 | Follow package | | | | | | mg tablet | directions. | | | | | + + + +---------+ + + | nitroglycerin | Place 0.4 mg under | | 0 | | | | (NITROSTAT) 0.4 mg | the tongue every 5 | | | | | | SL tablet | minutes as needed | | | | | | | for Chest pain. | | | | | + + + +---------+ + + | ondansetron | Take 1 tablet by | 12 | 0 | 12/11/19 | | | (ZOFRAN ODT) 8 mg | mouth every 8 hours | tablet | | 18 | | | disintegrating | as needed for | | | | | | tablet | Nausea. | | | | | + + + +---------+ + + | ondansetron | Take 4 mg by mouth | | 0 | 06/08/19 | | | (ZOFRAN) 4 mg tablet | every 8 hours as | | | 12 | | | | needed. | | | | | + + + +---------+ + + | pregabalin | Take 150 mg by mouth | | 0 | | | | (LYRICA) 150 MG | 2 (two) times | | | | | | capsule | daily. | | | | | + + + +---------+ + + | pregabalin | Take 150 mg by mouth | | 0 | 05/21/19 | | | (LYRICA) 150 MG | Daily. | | | 12 | | | capsule | | | | | | + + + +---------+ + + | promethazine | Takes as needed for | | 0 | 08/05/19 | | | (PHENERGAN) 12.5 MG | nausea. | | | 17 | | | tablet | | | | | | + + + +---------+ + + | salmeterol | Rx per PCP. Per | | 0 | 05/01/20 | | | (SEREVENT DISKUS) 50 | patient takes 2 | | | 16 | | | mcg/puff diskus | puffs as needed. | | | | | | inhaler | | | | | | + + + +---------+ + + | salmeterol | Inhale 1 puff into | | 0 | | | | (SEREVENT DISKUS) 50 | the lungs as needed. | | | | | | mcg/puff diskus | | | | | | | inhaler | | | | | | + + + +---------+ + + | SUMAtriptan | Take by mouth. | | 0 | | | | (IMITREX) 100 mg | | | | | | | tablet | | | | | | + + + +---------+ + + | SUMAtriptan | Take 100 mg by mouth | | 0 | 02/02/20 | | | (IMITREX) 100 mg | as needed. | | | 12 | | | tablet | | | | | | + + + +---------+ + + | telmisartan | Take 1 tablet by | | 0 | 03/09/20 | | | (MICARDIS) 80 MG | mouth once daily. | | | 16 | | | tablet | Indications: | | | | | | | HYPERTENSION | | | | | + + + +---------+ + + | telmisartan | Take 80 mg by mouth | | 0 | | | | (MICARDIS) 80 MG | Daily. | | | | | | tablet | | | | | | + + + +---------+ + + | | Take 1 tablet by | | 0 | | | | telmisartan-hydrochl | mouth daily. | | | | | | orothiazide | | | | | | | (MICARDIS HCT) | | | | | | | 80-12.5 MG per | | | | | | | tablet | | | | | | + + + +---------+ + + | traZODone | Rx per PCP. Per | | 0 | 05/01/20 | | | (DESYREL) 100 mg | patient takes 1 | | | 16 | | | tablet | tablet every evening | | | | | | | for sleep. | | | | | + + + +---------+ + + | traZODone | Take 100 mg by mouth | | 0 | 02/02/20 | | | (DESYREL) 100 mg | nightly. | | | 12 | | | tablet | | | | | | + + + +---------+ + + | dicyclomine | Take 1 capsule by | | 0 | 11/10/19 | | | (BENTYL) 10 mg | mouth 4 (four) times | | | 19 | 0 | | capsule | daily as needed. | | | | | + + + +---------+ + + | | Take 1 tablet by | | 0 | 05/01/20 | | | diphenoxylate-atropi | mouth 4 (four) times | | | 16 | 0 | | ne (LOMOTIL) | daily as needed for | | | | | | 2.5-0.025 mg per | Diarrhea. | | | | | | tablet | | | | | | + + + +---------+ + + | | Take 1-2 tablets by | | 0 | 12/07/19 | | | HYDROcodone-acetamin | mouth every 6 (six) | | | 19 | 0 | | ophen (NORCO) 5-325 | hours as needed for | | | | | | mg per tablet | Pain. Do not exceed | | | | | | | 8 in a 24 hour | | | | | | | period. Do not take | | | | | | | Tylenol, as this | | | | | | | medication has | | | | | | | Tylenol in it. | | | | | + + + +---------+ + + | | Take 1 tablet by | 15 | 0 | 12/11/19 | | | HYDROcodone-acetamin | mouth every 6 hours | tablet | | 18 | 0 | | ophen (NORCO) 5-325 | as needed. | | | | | | mg per tablet | | | | | | + + + +---------+ + + | oxyCODONE | Take 10 mg by mouth | | 0 | | | | (OXYCONTIN) 10 mg ER | as needed for Pain. | | | | 0 | | abuse-deterrent | | | | | | | tablet | | | | | | + + + +---------+ + + documented as of this encounter Progress Notes Skyler Dong MD - 07/28/2019 7:24 AM PDT Please see procedure note. There have been no changes to the history and physical since 06/29/2019. Sedation Presedation Assessment completed. ASA Classification: 3 Airway assessment performed. Mallampati Classification: 1 documented in this e ncounter Miscellaneous Notes Op Note - Skyler Dong MD - 07/28/2019 7:25 AM PDTFormatting of this note might be di fferent from the original. 2 [facility] [address] [facility] [address], Service: Interventional Pain Management Operative Note Name: Ivan Giles Age: 53 y.o. Todays Date: 07/28/2019 Time: 7:25 AM [id number] Cervical TOI ICD-10-CM ICD-9-CM 1. Cervical radicular pain M54.12 723.4 2. Degeneration of intervertebral disc of cervical region M50.30 722.4 3. Facet arthritis of cervical region M47.812 721.0 PREOPERATIVE DIAGNOSIS [ES]- ICD-10-CM ICD-9-CM 1. Cervical radicular pain M54.12 723.4 2. Degeneration of intervertebral disc of cervical region M50.30 722.4 3. Facet arthritis of cervical region M47.812 721.0 POSTOPERATIVE DIAGNOSIS [ES]- Cervical degenerative disc disease with upper extremity radicular pain. ANESTHESIA- Moderate sedation with 1.5 mg of Versed and 50 mcg of fentanyl and local anesthesia with 1 percent lidocaine. COMPLICATIONS- None apparent. BLOOD LOSS- Zero. INDICATIONS FOR PROCEDURE: This patient has MRI documented cervical degenerative disc disea se. They have upper extremity radicular pain that has failed conservative therapy and her th erefore candidate for cervical epidural steroid injection. Cervical TOI Procedure- After informed consent was obtained, the patient was taken to the operating room and placed in the sitting position in a wheelchair. Procedural time out was performed. Fluoroscopy wa s utilized to identify the C6-7 interlaminar space. The patient's neck was prepped with Chl oraPrep and draped in the usual sterile fashion. The skin and subcutaneous tissue at the in jection site were anesthetized with a total of 4 mL of 1 percent lidocaine. This was done u tilizing a 25-gauge, 1-1/2 inch needle. Under fluoroscopic guidance, a 20-gauge 3 1/2 inch Touhy needle was placed into the C6-7 interlaminar space. Positive loss of resistance to flako ine was obtained. After negative aspiration, Injection of 1 mL of Omnipaque 300 contrast dem onstrated very nice spread in the epidural space and no evidence of intrathecal or intravasc ular injection. A mixture containing 10 mg of dexamethasone, 1 mL and preservative-free sali ne and 1 mL of preservative free 1% lidocaine was injected and the needle was removed. The patient tolerated the procedure well and was taken to the recovery room in stable condi tion. There were no complications apparent. Throughout the procedure, the patient had radha nuous monitoring of blood pressure, pulse, ECG and oxygen saturation. These remained stabl e throughout the procedure. The patient will be contacted by phone in approximately 2 weeks for a telephone followup. If necessary, the patient will be seen back at [facility] for re-evaluation and further therapeutic plans. PREPARED BY: Skyler Dong M.D. documented in this e ncounter Plan of Treatment +--------+---------+ + + + | Date | Type | Specialty | Care Team | Description | +--------+---------+ + + + | 12/05/ | Office | Pain Medicine | Vitaliy Mendoza, | | 2019 | Visit | | DO [address] | | | | | | [place] | | | | | | [id number] | | | | | | | | +--------+---------+ + + + + +---------+--------+ + + | Name | Type | Priori | Associated Diagnoses | Date/Time | | | | ty | | | + +---------+--------+ + + | FL C-Arm | Imaging | Routin | | 07/28/2019 7:41 AM | | | | e | | PDT | + +---------+--------+ + + + +---------+--------+ + + | Name | Type | Priori | Associated Diagnoses | Order Schedule | | | | ty | | | + +---------+--------+ + + | FL C-Arm | Imaging | Routin | | One time imaging One | | | | e | | time imaging for 1 | | | | | | Occurrences starting | | | | | | 07/28/2019 until | | | | | | 07/28/2019 | + +---------+--------+ + + documented as of this encounter Visit Diagnoses + + | Diagnosis | + + | Cervical radicular pain - Primary Brachial neuritis or radiculitis nos | + + | Degeneration of intervertebral disc of cervical region | + + | Facet arthritis of cervical region Cervical spondylosis without myelopathy | + + documented in this encounter Administered Medications + +--------+ +-------+------+ + | Medication Order | MAR | Action | Dose | Rate | Site | | | Action | Date | | | | + +--------+ +-------+------+ + | dexamethasone (DECADRON) 10 | Given | 07/28/19 | 10 mg | | Other | | mg/mL injection ONCE PRN, | | 20 7:39 | | | (Comment | | Starting 07/28/19 at 0736, | | AM PDT | | | ) | | Intra-op | | | | | | + +--------+ +-------+------+ + +---+---+ | | | +---+---+ + +-------+ +--------+---+---+ | fentaNYL (PF) injection | Given | 07/28/19 | 50 mcg | | | | Intravenous, ONCE PRN, Starting | | 20 7:35 | | | | | 07/28/19 at 0735 | | AM PDT | | | | + +-------+ +--------+---+---+ +---+---+ | | | +---+---+ + +-------+ +--------+---+---+ | midazolam (VERSED) 1 mg/mL | Given | 07/28/19 | 1.5 mg | | | | injection Intravenous, ONCE PRN, | | 20 7:36 | | | | | Starting 07/28/19 at 0736, | | AM PDT | | | | | Intra-op | | | | | | + +-------+ +--------+---+---+ +---+---+ | | | +---+---+ + +-------+ +-------+---+---+ | sodium chloride (PF) 0.9% | Given | 07/28/19 | 5 mLs | | | | injection flush Intravenous, | | 20 7:36 | | | | | ONCE PRN, Starting 07/28/19 at | | AM PDT | | | | | 0736 | | | | | | + +-------+ +-------+---+---+ +---+---+ | | | +---+---+ documented in this encounter"
--- OUTSIDE RECORDS SUMMARY | ~2019-11-25 | XMS | Encounter Summary ---
Demographics + + + | Address | [address] | | | [place] [address] | + + + | Home Phone | | + + + | Preferred Language | Unknown | + + + | Marital Status | Unmarried Domestic Partner | + + + | Evangelical Affiliation | NON | + + + | Race | White | + + + | Ethnic Group | Not or | + + + Author + + + | Author | [facility] | + + + | Organization | [facility] | + + + | Address | Unknown | + + + | Phone | Unavailable | + + + Support + + + + + | Name | Relationship | Address | Phone | + + + + + | Gabriel [place]berg | ECON | [address] | | | | | [place] | | | | | [address] | | + + + + + Care Team Providers + +------+ + | Care Body Presser Name | Role | Phone | + +------+ + | Unknown | PCP | Unavailable | + +------+ + Reason for Visit +--------+ + | Reason | Comments | +--------+ + | HIV | phone intake interview | +--------+ + Encounter Details +--------+ + + + + | Date | Type | Department | Care Team | Description | +--------+ + + + + | 01/22/ | Documentati | [facility] | Fred, | HIV (phone intake | | 2016 | on | at [facility] | MD Caio | interview) | | | | [address] | [address] | | | | | [address] | [address] [place], | | | | | [address], [address] floor | [place] [address] | | | | | [place], [place] | [phone] | | | | | [address] | | | | | | [phone] | | | +--------+ + + + + Social History + +-------+ +--------+------+ | Tobacco Use | Types | Packs/Day | Years | Date | | | | | Used | | + +-------+ +--------+------+ | Never Smoker | | | | | + +-------+ +--------+------+ + + +---------+ + | Alcohol Use | Drinks/Week | oz/Week | Comments | + + +---------+ + | No | | | | + + +---------+ + + + + | Sex Assigned at | Date Recorded | | | | + + + | Not on file | | + + + + + + + | Job Start Date | Occupation | Industry | + + + + | Not on file | Not on file | Not on file | + + + + + + + + | Travel History | Travel Start | Travel End | + + + + + + | No recent travel history available. | + + documented as of this encounter Plan of Treatment Not on filedocumented as of this encounter Visit Diagnoses Not on filedocumented in this encounter"
--- OUTSIDE RECORDS SUMMARY | ~2019-11-25 | XMS | Encounter Summary ---
Demographics + + + | Address | [address] | | | [place] [address] | + + + | Home Phone | | + + + | Preferred Language | Unknown | + + + | Marital Status | Unmarried Domestic Partner | + + + | Confucianist Affiliation | NON | + + + | Race | White | + + + | Ethnic Group | Not or | + + + Author + + + | Author | [facility] | + + + | Organization | [facility] | + + + | Address | Unknown | + + + | Phone | Unavailable | + + + Support + + + + + | Name | Relationship | Address | Phone | + + + + + | Gabriel Greenberg | ECON | [address] | | | | | [place] | | | | | [address] | | + + + + + Care Team Providers + +------+ + | Care Ase Master Mechanic Name | Role | Phone | + +------+ + | Jax Cabrera MD | PCP | | + +------+ + Reason for Referral PROC - Dept/Practice Procedure (Routine) +--------+--------+ + + + + | Status | Reason | Specialty | Diagnoses / | Referred By | Referred To | | | | | Procedures | Contact | Contact | +--------+--------+ + + + + | Closed | | Gastroenterol | Diagnoses | Ibarra, | [facility] End[facility] | | | | ogy | Colon | [place], | [facility] [address] | | | | | cancer | [address] | [address] | | | | | screening | [address] | [place] | | | | | Procedures | [address] | [place], [address] | | | | | CONSULT TO | [place], [place] | floor | | | | | GI PROCEDURE | [address] | [place], [place] | | | | | UNIT: | Phone: | [phone] | | | | | COLONOSCOPY | [phone] | Phone: | | | | | [place] | Fax: | [phone] | | | | | COLONOSCOPY, | [phone] | Fax: | | | | | FLEX, | | [phone] | | | | | W/BIOPSY | | | +--------+--------+ + + + + Reason for Visit + + + | Reason | Comments | + + + | Referral To | | | Gastroenterology | | + + + Encounter Details +--------+ + + + + | Date | Type | Department | Care Team | Description | +--------+ + + + + | 10/20/ | Telephone | [facility] | Fred | Referral To | | 2017 | | at [facility] | MD Caio | Gastroenterology | | | | [address] [place] | [address] | | | | | [address] | [address] [facility], | | | | | [place], [address] floor | [place] [address] | | | | | [place], [place] | [phone] | | | | | [address] | | | | | | [phone] | | | +--------+ + + + [...] filedocumented as of this encounter Visit Diagnoses + + | Diagnosis | + + | Colon cancer screening - Primary Special screening for malignant neoplasms, colon | + + documented in this encounter"
--- OUTSIDE RECORDS SUMMARY | ~2019-11-25 | XMS | Encounter Summary ---
Demographics + + + | Address | [address] | | | [place] [address] | + + + | Home Phone | | + + + | Preferred Language | Unknown | + + + | Marital Status | | + + + | Quaker Affiliation | 1013 | + + + | Race | Unknown | + + + | Ethnic Group | Unknown | + + + Author + + + | Author | [facility] | | | and [place] | + + + | Organization | [facility] | | | and [...] [place] | | | | | [address] | | + + + + + Care Team Providers + +------+ + | Care Catastrophe Claims Supervisor Name | Role | Phone | + +------+ + PCP | Unavailable | + +------+ + Encounter Details +--------+ + + + + | Date | Type | Department | Care Team | Description | +--------+ + + + + | 12/10/ | Emergency | [facility] | [facility], | Abdominal Pain, | | 2009 | | [facility] | MD [address] | Other Specified Site | | | | EMERGENCY CENTER | [place], [place] | | | | | [address] | [address] | | | | | [place], [place] | [phone] | | | | | [address] | | | | | | [phone] | | | +--------+ + + + [...] PAZ | | | | | | [id number] | | | | | | | | +--------+---------+ + + + documented as of this encounter Procedures + +--------+ + + + | Procedure Name | Priori | Date/Time | Associated Diagnosis | Comments | | | ty | | | | + +--------+ + + + | CT RENAL STONE WO | Routin | 12/10/2009 | | Results for this | | CONTRAST | e | 7:01 PM | | procedure are in the | | | | PDT | | results section. | + +--------+ + + + documented in this encounter Results CT Renal Stone Wo Contrast (12/10/2009 7:01 PM PDT) + + | Specimen | + + | | + + + + + | Narrative | Performed At | + + + | [facility] [address] Ph: | | | Patient Name: MICHAEL CHAVEZ Nigel Date of : | | | 1965 Medical Record: [id number] Account: [id number] | | | Exam Date/Time: 12/10/2009 18:35 Ordering | | | Physician: BAM US Order Detail: [id number] Exam Description: | | | CT URINARY TRACT (ABDOMEN/PELVIS) | | | | | | History: 44-year-old male with pain Technique: Noncontrast CT | | | through the abdomen and pelvis. Findings: There is a small amount | | | of atelectasis or scarring in the posterior right lung base. Are | | | clips post cholecystectomy. Small duodenal diverticulum on image | | | 27 series 3 is favored of less than a centimeter. Bone windows | | | are unremarkable. There is a 4 to 5-mm urolith at the right | | | ureteropelvic junction. This is likely the synthetic issue as there | | | is cephalad inflammatory change of the urothelium and mild | | | right-sided hydronephrosis. Incidental notation made of a few | | | areas of slight density but the left renal pelvis and small | | | crescentic layering density in the urinary bladder on image 73. There | | | are prostate calcifications. The distal colon is not distended | | | but the wall may be thick over a broad area. This may be the first | | | finding of diverticular disease or change No hernia. | | | IMPRESSION: 4 to 5 mm urolith at the right ureteropelvic junction | | | | | + + + + + | Procedure Note | + + | Eric, Rad Conversion - 01/08/2019 4:04 PM PDT | | [facility] | | [facility][note 3] [id number] | | | | | | Patient Name: MICHAEL CHAVEZ | | Date of : 1965 | | Medical Record: [id number] | | Account: [id number] | | | | | | Exam Date/Time: 12/10/2009 18:35 | | Ordering Physician: BAM US | | Order Detail: [id number] | | Exam Description: CT URINARY TRACT (ABDOMEN/PELVIS) | | | | History: 44-year-old male with pain | | | | Technique: Noncontrast CT through the abdomen and pelvis. | | | | Findings: There is a small amount of atelectasis or scarring in the | | posterior right lung base. | | | | Are clips post cholecystectomy. | | | | Small duodenal diverticulum on image 27 series 3 is favored of less than a | | centimeter. | | | | Bone windows are unremarkable. | | | | There is a 4 to 5-mm urolith at the right ureteropelvic junction. This is | | likely the synthetic issue as there is cephalad inflammatory change of the | | urothelium and mild right-sided hydronephrosis. | | | | Incidental notation made of a few areas of slight density but the left | | renal pelvis and small crescentic layering density in the urinary bladder | | on image 73. There are prostate calcifications. | | | | The distal colon is not distended but the wall may be thick over a broad | | area. This may be the first finding of diverticular disease or change | | | | No hernia. | | | | IMPRESSION: 4 to 5 mm urolith at the right ureteropelvic junction | | | | | + + documented in this encounter Visit Diagnoses + + | Diagnosis | + + | Abdominal pain, other specified site | + + documented in this encounter"
--- OUTSIDE RECORDS SUMMARY | ~2019-11-25 | XMS | Encounter Summary ---
Demographics + + + | Address | [address] | | | [place] [address] | + + + | Home Phone | | + + + | Preferred Language | Unknown | + + + | Marital Status | Unmarried Domestic Partner | + + + | Orthodoxy Affiliation | NON | + + + | Race | White | + + + | Ethnic Group | Not or | + + + Author + + + | Author | [facility] | + + + | Organization | [facility] | + + + | Address | Unknown | + + + | Phone | Unavailable | + + + Support + + + + + | Name | Relationship | Address | Phone | + + + + + | Gabriel Greenberg | ECON | [address] | | | | | [place] | | | | | [address] | | + + + + + Care Team Providers + +------+ + | Care Cab Supervisor Name | Role | Phone | + +------+ + | No Pcp Per Patient | PCP | Unavailable | + +------+ + Reason for Visit + + + | Reason | Comments | + + + | N&V - Nausea and | | | vomiting | | + + + Encounter Details +--------+ + + + + | Date | Type | Department | Care Team | Description | +--------+ + + + + | 03/16/ | Telephone | [facility] | Fred, | N&V - Nausea and | | 2015 | | at [facility] | MD Caio | vomiting | | | | [address] | [address] | | | | | [address] | [address] [facility], | | | | | Pavilion, 3rd floor | [place] [address] | | | | | [place], [place] | [phone] | | | | | [address] | | | | | | [phone] | | | +--------+ + + + [...]
--- OUTSIDE RECORDS SUMMARY | ~2019-11-25 | XMS | Encounter Summary ---
Demographics + + + | Address | [address] | | | [place] [address] | + + + | Home Phone | | + + + | Preferred Language | Unknown | + + + | Marital Status | | + + + | Zoroastrian Affiliation | 1013 | + + + | Race | Unknown | + + + | Ethnic Group | Unknown | + + + Author + + + | Author | [facility] | | | and [place] | + + + | Organization | [facility] | | | [...] [place] | | | | | [address] | | + + + + + Care Team Providers + +------+ + | Care Power Machine Operator Name | Role | Phone | + +------+ + | Jax Cabrera MD | PCP | | + +------+ + Reason for Referral Evaluate & Treat (Emergency) + + + + + + + | Status | Reason | Specialty | Diagnoses / | Referred By | Referred To | | | | | Procedures | Contact | Contact | + + + + + + + | Authorized | Specialty | Orthopedic | Diagnoses | Myrna, | Bert, | | | Services | Surgery | Closed | Ashish | Kiran Campbell MD | | | Required | | fracture of | MD Bobby | [address] | | | | | right elbow, | [address] | | | | | initial | [place] | [place] | | | | | encounter | [place] | [address] | | | | | | [address] | Phone: | | | | | | Phone: | [phone] | | | | | | [phone] | Fax: | | | | | | Fax: | [phone] | | | | | | [phone] | | + + + + + + + Reason for Visit + + + | Reason | Comments | + + + | Elbow Injury | | + + + Encounter Details +--------+ + + + + | Date | Type | Department | Care Team | Description | +--------+ + + + + | 12/25/ | Emergency | [facility] | Ashish Norris | Closed fracture of | | 2019 | | [facility] | MD Bobby [address] | right elbow, initial | | | | CENTER [address] | [address] [place] | encounter (Primary | | | | [place], [place] | [place] [address] | Dx) | | | | [address] | [phone] | | | | | [phone] | | | +--------+ + + + [...] + + documented as of this encounter Discharge Instructions AttachmentsThe following attachments cannot be sent through Care Everywhere.Bones, How They Heal (Bulgarian)Elbow Fracture (Bulgarian)documented in this encounter Medications at Time of [...] 1 puff into | | 0 | 07/04/19 | | | albuterol-ipratropiu | the lungs 4 (four) | | | 19 | 0 | | m (COMBIVENT | times daily. | | | | | | RESPIMAT) 100-20 | | | | | | | mcg/puff inhaler | | | | | | [...] | | Take 1 tablet by | 28 | 0 | 12/26/19 | | | oxyCODONE-acetaminop | mouth every 6 hours | tablet | | 19 | 9 | | hen (PERCOCET) 5-325 | as needed for up to | | | | | | mg per tablet | 7 days. | | | | | + + + +---------+ + + documented as of this encounter ED Notes Ashish Norris MD - 12/25/2018 3:08 PM PDTFormatting of this note might be diff erent from the original. [facility] Ivan Chavez Emergency Department Encounter Note [address] [place] [id number] PCP:Jax Cabrera MD [phone] CHIEF COMPLAINT: Chief Complaint Patient presents with Elbow Injury ED Room: ED09 HPI Ivan Chavez is a 53 y.o. male who presents to the Emergency Department Reports striking R elbow now having localized aching 5/10 persistent sudden onset R arm nilo n for over a week. 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 Language line translator/interpreter made available and used to collect historical details as needed. PAST MEDICAL & SURGICAL HISTORY Patient Active Problem List Diagnosis Date Noted Acute pain of right shoulder 12/06/2018 Gastroesophageal reflux disease 12/06/2018 Note Last Updated: 12/12/2018 Added automatically from request for surgery [id number] Left arm weakness 09/14/2018 Lumbar herniated disc 07/20/2018 Chest pain, unspecified 06/29/2018 Chronic obstructive lung disease (HCC) 05/31/2018 Chronic post-traumatic stress disorder 05/31/2018 Degenerative lumbar spinal stenosis 05/31/2018 History of alcohol abuse 05/31/2018 Degeneration of thoracic intervertebral disc 05/31/2018 Abnormal finding of blood chemistry, unspecified 10/05/2017 Dissociative convulsions 10/05/2017 Elevated blood pressure reading 10/05/2017 Exposure to viral hepatitis 10/05/2017 Mixed hyperlipidemia 01/29/2017 Neuropathy due to HIV ([facility]) 08/20/2016 Chronic pain 06/18/2016 Heart murmur 06/18/2016 Seizure disorder ([facility]) 04/15/2016 Human immunodeficiency virus (HIV) disease ([facility]) 04/14/2016 Note Last Updated: 12/12/2018 Overview: Last Assessment & Plan: Will continue with Infectious disease specialist. Last Assessment & Plan: Will continue with Infectious disease specialist. VSD (ventricular septal defect) 04/14/2016 Congenital malformation of heart 04/03/2016 Note Last Updated: 12/12/2018 Last Assessment & Plan: Murmur is very loud and patient is symptomatic with chest pain and episodes of dizziness. Will get echocardiogram. History of heroin abuse 04/03/2016 Mild persistent asthma with acute exacerbation 04/03/2016 Precordial pain 04/03/2016 Note Last Updated: 12/12/2018 Last Assessment & Plan: Typical ad atypical components. Will refer to manager real estate. Rx for nitroglycerin. Will address blood pressure. Check cholesterol. Intermittent asthma 04/03/2016 Diarrhea 02/16/2016 Bipolar I disorder (HCC) 02/16/2016 Hepatitis B 02/07/2016 Sacroiliac joint pain 04/27/2013 Note Last Updated: 12/12/2018 Last Assessment & Plan: This patient has symptoms of sacroiliac generated pain. 06/01/2013 he underwent a right sac roiliac joint steroid injection under fluoroscopic guidance. This provided more than 80% re lief of his pain for more than 4 months. His pain has now returned and is now bilateral. Jaylon sanz has significant tenderness over bilateral sacroiliac joints. Stressing the sacroiliac sascha nts increases the pain in this area. His pain is consistent with sacroiliac generated pain. He is therefore candidate for left and right sacroiliac joint steroid injections under flu oroscopic guidance. Plan, alternatives, risks, and potential benefits of the procedure were discussed with the patient great detail. They understand there is no guarantee they will get pain relief with this procedure. They also understand that if they did get pain relief there is no way to kn ow how long it will last. They also understand that there are risks of the procedure itself which include but are not limited to infection, abscess, hematoma, nerve damage, increased pain, permanent dysfunction to their limbs, stroke, and side effects or allergic reactions f rom medications. They wished to proceed. Overview: Last Assessment & Plan: This patient has symptoms of sacroiliac generated pain. 06/01/2013 he underwent a right sac roiliac joint steroid injection under fluoroscopic guidance. This provided more than 80% re lief of his pain for more than 4 months. His pain has now returned and is now bilateral. Jaylon sanz has significant tenderness over bilateral sacroiliac joints. Stressing the sacroiliac sascha nts increases the pain in this area. His pain is consistent with sacroiliac generated pain. He is therefore candidate for left and right sacroiliac joint steroid injections under flu oroscopic guidance. Plan, alternatives, risks, and potential benefits of the procedure were discussed with the patient great detail. They understand there is no guarantee they will get pain relief with this procedure. They also understand that if they did get pain relief there is no way to kn ow how long it will last. They also understand that there are risks of the procedure itself which include but are not limited to infection, abscess, hematoma, nerve damage, increased pain, permanent dysfunction to their limbs, stroke, and side effects or allergic reactions f rom medications. They wished to proceed. Sprain of sacroiliac ligament 11/16/2012 Chronic pain associated with significant psychosocial dysfunction 11/09/2012 Chronic pain syndrome 11/09/2012 Gait instability 11/09/2012 Arthropathy of cervical facet joint 06/22/2012 Note Last Updated: 12/12/2018 Last Assessment & Plan: Please see discussion under cervical radicular pain Degeneration of intervertebral disc of cervical region 06/22/2012 Note Last Updated: 12/12/2018 Last Assessment & Plan: Please see discussion under lumbar radicular pain. Last Assessment & Plan: Please see discussion under cervical radicular pain Overview: Last Assessment & Plan: Please see discussion under cervical radicular pain Cervical radicular pain 06/22/2012 Note Last Updated: 12/12/2018 Last Assessment & Plan: This gentleman also has neck pain traveling to his right arm in the C6-7 dermatomal distrib ution. His cervical MRI showed scoliosis in his upper thoracic and cervical spine, degenera tive disk and facet disease causing mild central stenosis and more left foraminal stenosis t oliveira right from C3-4 to C5-6, but moderate right foraminal stenosis at C6-7. We reviewed his MRI and discussed options. His symptoms are most likely due to the foraminal stenosis at C6 -7. He has tried and failed other conservative measures. He is a candidate for a cervical epidural steroid injection. Will have to postpone this cervical epidural steroid injection until September since he has now have had 3 lumbar epidural steroid injections since 03-15-12. In September, he could go forward with another epidural steroid injection. He will call and make a f/u appointment in late August so that we can arrange for his cervical epidural steroid injec tion if he wishes. Would plan on a C7-T1 cervical epidural steroid injection under fluoros copic guidance. Overview: Last Assessment & Plan: This patient has MRI documented lumbar degenerative disk disease with an L5-S1 disk protrus ion that results in right L5 neural foraminal narrowing. There is also an annular tear at t his level. The patient previously had bilateral lower extremity radicular pain and underwen t a caudal epidural steroid injection with catheter targeting the right and left L5 and S1 n erve roots 07/05/2012. This was repeated on 01-25-14. Initially he did well for 1 week, but then his radicular and low back pain returned and is more severe and now he is complaining o f fevers, night sweats and headache. Since his last MRI is over 2 years ago, will get an ur gent MRI and labs to evaluate for infection. He will then return to review his MRI. Last Assessment & Plan: This gentleman also has neck pain traveling to his right arm in the C6-7 dermatomal distrib ution. His cervical MRI showed scoliosis in his upper thoracic and cervical spine, degenera tive disk and facet disease causing mild central stenosis and more left foraminal stenosis t oliveira right from C3-4 to C5-6, but moderate right foraminal stenosis at C6-7. We reviewed his MRI and discussed options. His symptoms are most likely due to the foraminal stenosis at C6 -7. He has tried and failed other conservative measures. He is a candidate for a cervical epidural steroid injection. Will have to postpone this cervical epidural steroid injection until September since he has now have had 3 lumbar epidural steroid injections since 03-15-12. In September, he could go forward with another epidural steroid injection. He will call and make a f/u appointment in late August so that we can arrange for his cervical epidural steroid injec tion if he wishes. Would plan on a C7-T1 cervical epidural steroid injection under fluoros copic guidance. Arthropathy of lumbar facet joint 05/23/2012 Note Last Updated: 12/12/2018 Overview: Last Assessment & Plan: Please see discussion under lumbar radicular pain. Last Assessment & Plan: Please see discussion under lumbar radicular pain. Facet arthritis of lumbar region 05/23/2012 Note Last Updated: 12/12/2018 Last Assessment & Plan: Please see discussion under lumbar radicular pain. Lumbar radicular pain 05/23/2012 Note Last Updated: 12/12/2018 Last Assessment & Plan: This patient has MRI documented lumbar degenerative disk disease with an L5-S1 disk protrus ion that results in right L5 neural foraminal narrowing. There is also an annular tear at t his level. The patient previously had bilateral lower extremity radicular pain and underwen t a caudal epidural steroid injection with catheter targeting the right and left L5 and S1 n erve roots 07/05/2012. This was repeated on 01-25-14. Initially he did well for 1 week, but then his radicular and low back pain returned and is more severe and now he is complaining o f fevers, night sweats and headache. Since his last MRI is over 2 years ago, will get an ur gent MRI and labs to evaluate for infection. He will then return to review his MRI. Irritable bowel syndrome with diarrhea 03/13/2012 Note Last Updated: 12/12/2018 Added automatically from request for surgery [id number] Back pain 03/13/2012 Chronic hepatitis C virus infection (HCC) 03/13/2012 Note Last Updated: 12/12/2018 Completed Harvoni treatment He is disease free Overview: Overview: Completed Harvoni treatment He is disease free Benign essential hypertension 03/13/2012 Note Last Updated: 12/12/2018 Last Assessment & Plan: Will wait until after echo to address appropriate medication for high blood pressure Follow up in 2-3 weeks. 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 Cont act provider if using >1 inhaler/month. (Pharmacy: please disp whichever albuterol is on for mulary) albuterol 90 mcg/puff inhaler Inhale into the lungs. albuterol-ipratropium (COMBIVENT RESPIMAT) 100-20 mcg/puff inhaler Inhale 1 puff into t he lungs 4 (four) times daily. albuterol-ipratropium (COMBIVENT) 103-18 mcg/puff inhaler Inhale 2 puffs into the lungs every 6 hours as needed for Wheezing. amLODIPine (NORVASC) 5 mg tablet Take 1 tablet by mouth Daily. amLODIPine (NORVASC) 5 mg tablet Take 5 mg by mouth. crofelemer (FULYZAQ) 125 mg EC tablet Take 1 tablet by mouth every twelve hours. cyclobenzaprine (FLEXERIL) 10 mg tablet Take 10 mg by mouth 3 (three) times daily as ne eded for Muscle spasms. Dexlansoprazole (DEXILANT) 60 MG CPDR Take 60 mg by mouth Daily. (Patient taking differ ently: Take 60 mg by mouth Daily as needed.) dexlansoprazole (DEXILANT) [address] capsule Take 1 capsule by mouth every morning befor e breakfast. dicyclomine (BENTYL) 10 mg capsule Take 1 capsule by mouth 4 (four) times daily as need ed. diphenoxylate-atropine (LOMOTIL) 2.5-0.025 mg per tablet Take 1 tablet by mouth 4 (four ) times daily as needed for Diarrhea. divalproex (DEPAKOTE ER) 250 mg 24 hr tablet Take 500 mg by mouth 2 (two) times daily. divalproex (DEPAKOTE) [address] tablet Rx per PCP. Per patient takes 1 tablet BID for s eizure d/o. divalproex (DEPAKOTE) 250 mg EC tablet Take 250 mg by mouth Daily. dolutegravir (TIVICAY) 50 mg tablet Take 100 mg by mouth daily. DULoxetine (CYMBALTA) 30 mg capsule Take 30 mg by mouth Daily. (Patient taking differen tly: Take 60 mg by mouth Daily.) Emtricitabine-Tenofovir (TRUVADA PO) TABS: one tablet daily emtricitabine-tenofovir alafenamide (DESCOVY) 200-25 mg per tablet Take 1 tablet by josefa th once daily. emtricitabine-tenofovir DF (TRUVADA) 200-300 mg per tablet Take 1 tablet by mouth daily . fluticasone-vilanterol (BREO ELLIPTA) 100-25 mcg/puff inhaler Inhale 1 puff into the tammy ngs daily. HYDROcodone-acetaminophen (NORCO) 5-325 mg per tablet Take 1-2 tablets by mouth every 6 (six) hours as needed for Pain. Do not exceed 8 in a 24 hour period. Do not take Tylenol, as this medication has Tylenol in it. HYDROcodone-acetaminophen (NORCO) 5-325 mg per tablet Take 1 tablet by mouth every 6 ho urs as needed. (Patient not taking: Reported on 12/25/2018) hydrOXYzine hydrochloride (ATARAX) 25 mg tablet Take 25 mg by mouth 3 (three) times kayla ly as needed for Itching. loratadine (CLARITIN) 10 mg tablet Take 10 mg by mouth daily as needed. loratadine (GNP LORATADINE) 10 mg tablet Take 10 mg by mouth Daily. methylPREDNISolone (MEDROL DOSEPAK) 4 mg tablet Take by mouth. Follow package directio ns. nitroglycerin (NITROSTAT) 0.[address] 0.4 mg under the tongue every 5 minute s as needed for Chest pain. ondansetron (ZOFRAN ODT) 8 mg disintegrating tablet Take 1 tablet by mouth every 8 hour s as needed for Nausea. ondansetron (ZOFRAN) 4 mg tablet Take 4 mg by mouth every 8 hours as needed. oxyCODONE (OXYCONTIN) 10 mg ER abuse-deterrent tablet Take 10 mg by mouth as needed for Pain. pregabalin (LYRICA) 150 MG capsule Take 150 mg by mouth 2 (two) times daily. pregabalin (LYRICA) 150 MG capsule Take 150 mg by mouth Daily. promethazine (PHENERGAN) 12.5 MG tablet Takes as needed for nausea. salmeterol (SEREVENT DISKUS) 50 mcg/puff diskus inhaler Rx per PCP. Per patient takes 2 puffs as needed. salmeterol (SEREVENT DISKUS) 50 mcg/puff diskus inhaler Inhale 1 puff into the lungs as needed. SUMAtriptan (IMITREX) 100 mg tablet Take by mouth. SUMAtriptan (IMITREX) 100 mg tablet Take 100 mg by mouth as needed. telmisartan (MICARDIS) 80 MG tablet Take 1 tablet by mouth once daily. Indications: HYP ERTENSION telmisartan (MICARDIS) 80 MG tablet Take 80 mg by mouth Daily. telmisartan-hydrochlorothiazide (MICARDIS HCT) 80-12.5 MG per tablet Take 1 tablet by m outh daily. traZODone (DESYREL) 100 mg tablet Take 100 mg by mouth nightly. traZODone (DESYREL) 100 mg tablet Rx per PCP. Per patient takes 1 tablet every evening for sleep. ALLERGIES Allergies Allergen Reactions Gabapentin Hallucination, Other (See Comments) and Unknown Loss of memory, headache Loss of memory, headache Loss of memory, headache Loss of memory, headache Loss of memory, headache Loss of memory, headache Phenytoin Diarrhea, Other (See Comments) and Unknown h/a h/a h/a h/a h/a h/a Ritonavir Other (See Comments) Morphine Nausea And Vomiting FAMILY AND SOCIAL HISTORY Family History Problem Relation Age of Onset Alcohol abuse Mother Cancer Father Social History Socioeconomic History Marital status: Spouse name: Enrique Fung" Number of children: 0 Years of education: Not on file Highest education level: Not on file Tobacco Use Smoking status: Never Smoker Smokeless tobacco: Never Used Substance and Sexual Activity Alcohol use: No Alcohol/week: 0.0 oz Drug use: No Types: Heroin Comment: Quit 01/24/93 Social History Narrative Exercise: walking; biking Caffeine: 4 cups coffee daily Living situation: with spouse REVIEW OF SYSTEMS As in history of present illness. A 10 system review was otherwise negative. PHYSICAL EXAM VITAL SIGNS: (first vital signs): There is no height or weight on file to calculat e BMI. Constitutional: Well-appearing male patient. HEENT: Atraumatic, PERRL, Oropharynx benign. Neck: Supple with full range of motion. No JVD, no lymphadenopathy, no meningismus and no cervical spine tenderness to palpation or step-off noted. Chest: Good air movement bilaterally. No wheezes, No, rales. Cardiovascular: Normal S1 S2 Abdomen: Soft, nontender., no rebound, guarding, or masses., bowel tones normal. and no pu lsatile masses. Back: Within normal limits, no CVA tenderness and no midline thoracic or lumbar spinal tend erness Extremities: Nontender. No lower extremity edema, no calf asymmetry. Present distal pulse s. Skin: Warm, Dry, No rashes Neurologic: Alert & oriented. No focal deficits, Speech normal, gait not tested Psychiatric: Normal mood, affect and judgement. RUE is NV intact with soft compartments without infectious change. TPP at extensor attachme nt at R lateral olecranon without pain out of proportion. EKG 12-lead EKG shows LABS Results for orders placed or performed during the hospital encounter of 04/15/16 CBC with Differential Result Value Ref Range WBC 3.5 (L) 4.0 - 11.0 K/uL RBC 5.03 4.30 - 5.70 M/uL Hemoglobin 14.3 13.5 - 18.0 g/dL Hematocrit 41.5 40.0 - 51.0 % MCV 82.4 (L) 83.0 - 101.0 fL MCH 28.4 28.0 - 35.0 pg MCHC 34.4 32.0 - 36.0 g/dL RDW-CV 13.7 <15.0 % Platelet Count 155 140 - 440 K/uL MPV 8.3 fL % Neutrophils 34.1 (L) 45.0 - 82.0 % % Lymphocytes 47.2 (H) 20.0 - 45.0 % % Monocytes 16.5 (H) 4.0 - 12.0 % % Eosinophils 2.0 0.0 - 5.0 % % Basophils 0.2 0.0 - 1.0 % Absolute Neutrophils 1.20 (L) 1.80 - 8.50 K/uL Absolute Lymphocytes 1.60 0.60 - 3.20 K/uL Absolute Monocytes 0.60 0.00 - 1.00 K/uL Absolute Eosinophils 0.10 0.00 - 0.40 K/uL Absolute Basophils 0.00 0.00 - 0.10 K/uL Comprehensive Metabolic Panel Result Value Ref Range Na 136 136 - 149 mmol/L K 3.6 3.5 - 5.1 mmol/L Cl 104 98 - 109 mmol/L CO2 23 (L) 24 - 31 mmol/L Anion Gap 9 3 - 16 mmol/L Glucose 101 70 - 109 mg/dL BUN 13 7 - 18 mg/dL Creatinine 0.85 0.60 - 1.30 mg/dL eGFR if not >60 >=60 mL/min/1.73m2 Ca 9.5 8.3 - 10.5 mg/dL Albumin 4.2 3.2 - 5.0 g/dL Bilirubin Total 0.8 0.1 - 1.5 mg/dL Total Protein 7.4 6.0 - 7.8 g/dL AST 23 10 - 42 U/L ALT 16 6 - 45 U/L Alkaline Phosphatase 70 40 - 110 U/L Globulin 3.2 2.1 - 3.8 g/dL Albumin/Globulin Ratio 1.3 0.8 - 2.0 BUN/Creatinine Ratio 15.3 Troponin I Result Value Ref Range Troponin I 0.01 <0.06 ng/mL D-Dimer Result Value Ref Range D-Dimer Quantitative <0.27 <=0.50 ug/ml ECG 12 lead Result Value Ref Range VENTRICULAR RATE EKG 66 BPM ATRIAL RATE 66 BPM P-R INTERVAL 158 ms QRS DURATION 100 ms Q-T INTERVAL 416 ms Q-T INTERVAL (CORRECTED) 436 ms P WAVE AXIS 48 degrees QRS AXIS 72 degrees T AXIS 38 degrees INTERPRETATION TEXT Normal sinus rhythm Minimal voltage criteria for LVH, may be normal variant Borderline ECG No previous ECGs available Confirmed by HELIO JIMENEZ MD ([id number]) on 04/16/2016 7:27:49 AM IMAGING STUDIES (X-Rays interpreted by ED Physician) XR R elbow shows old healed fracture questions subtle fracture. ED COURSE & MEDICAL DECISION MAKING Pertinent Labs & Imaging studies were reviewed along with EMS notes and shelter record s if applicable. (See chart for details) Medications and Allergy list reviewed. Nurses note and old records were reviewed The patient was seen and examined, The patient was placed on the monitor and monitored. Treated with ice pack, sling, percocet, and ortho follow up. The patient remained hemodynamically stable without evidence of shock or malperfusion marilu santiago their ED course, at time of discharge patient is sitting/resting comfortably in no apparen t distress. The patient was counseled about their results and workup including all incidenta l findings and the need for out patient follow up to which they verbalized their understandi ng and were provided. The patient was counseled about the importance of medical recommendati ons today and the dangers including harm, , permanent injury, injury, morbidity, and mo rtality of non adherence to the treatment plan. They verbalize their understanding of today' s plan and agree with it. They were counseled that emergency services are available to them / and to return to the ED immediately if symptoms return, persist, change, worsen or new symptoms develop. The patient was given follow up. They were given further strict, thorough, actionable return precautions to which they verbalized their understanding. The patient's q uestions were answered and the patient agreed with the plan. The patient was discharged in g ood stable condition. Last Set of Vital Signs: FINAL IMPRESSION ICD-10-CM ICD-9-CM 1. Closed fracture of right elbow, initial encounter S42.401A 812.40 Follow-up Information Jax Cabrera MD. Specialty: Family Medicine Contact information: [address] [facility] [id number] Kiran Noel MD. Call today. Specialty: Orthopedic Surgery Contact information: [address] [place] [facility] [id number] Discharge Medication List as of 12/25/2018 15:19 START taking these medications Details oxyCODONE-acetaminophen (PERCOCET) 5-325 mg per tablet Take 1 tablet by mouth every 6 hours as needed for up to 7 days.Disp-28 tablet, R-0, Print Administrations This Visit oxyCODONE-acetaminophen (PERCOCET) 5-325 mg per tablet 1 tablet Admin Date 12/25/2018 Action Given Dose 1 tablet Route Oral Administered By Shavonne August RN Portions of this chart were created with Mamina Shkola voice recognition software. Inadvertent so und alike substitutions may be present and are unintentional Ashish Norris MD 12/25/18 1533 uehn, Jo Silvestre RN - 12/25/2018 2:41 PM PDTInjury to right elbow , hx of previous injury, hardware remov ed 4 yrs ago, hit his arm on a metal bar today states increased pain, numbness to fingers. E lectronically signed by Jo Carr RN at 12/25/2018 2:42 PM PDTdocumented in this encoun ter Plan of Treatment +--------+---------+ + + + | Date | Type | Specialty | Care Team | Description | +--------+---------+ + + + | 12/05/ | Office | Pain Medicine | Vitaliy Mendoza, | | | 2019 | Visit | | DO [address] | | | | | | [place] | | | | | | [id number] | | | | | | | | +--------+---------+ + + + + +------+--------+ + + | Name | Type | Priori | Associated Diagnoses | Date/Time | | | | ty | | | + +------+--------+ + + | ED INFORMATION | MAIKEL | Routin | | 12/25/2018 2:36 PM | | EXCHANGE | | e | | PDT | + +------+--------+ + + + + +--------+ + + | Name | Type | Priori | Associated Diagnoses | Order Schedule | | | | ty | | | + + +--------+ + + | Ambulatory Referral | Outpatient | STAT | Closed fracture of | Ordered: 12/25/2018 | | to [facility] | Referral | | right elbow, | | | Surgery | | | initial encounter | | + + +--------+ + + documented as of this encounter Procedures + +--------+ + + + | Procedure Name | Priori | Date/Time | Associated Diagnosis | Comments | | | ty | | | | + +--------+ + + + | XR ELBOW RIGHT 3 + | STAT | 12/25/2018 | | Results for this | | VW | | 2:59 PM | | procedure are in the | | | | PDT | | results section. | + +--------+ + + + | ED INFORMATION | Routin | 12/25/2018 | | | | EXCHANGE | e | 2:36 PM | | | | | | PDT | | | + +--------+ + + + +---+--------+ | | | | | Proced | | | ure | | | Note - | | | Danay, | | | Lab In | | | | | | Hlseve | | | n - | | | | | 2018 | | | 2:37 | | | PM PDT | | | | | | Format | | | ting | | | of | | | this | | | note | | | might | | | be | | | differ | | | ent | | | from | | | the | | | origin | | | al.COL | | | LECTIV | | | E?NOTI | | | FICATI | | | ON?08/ | | | | | | 9 | | | 14:35? | | | CHAVEZ, | | | ELMER | | | L | | | C?MRN: | | | | | | [id number] | | | [id number] | | | riteri | | | a Met | | | Care | | | Guidel | | | eladio | | | 3 | | | Facili | | | ties | | | in | | | 60Secu | | | rity | | | and | | | Safety | | | Date | | | Locati | | | on | | | Type | | | Specif | | | ics | | | | | | 8 2:20 | | | PM | | | [facility] | [facility] | | | al | | | Elopem | | | ent | | | Patien | | | t | | | eloped | | | | | | before | | | | | | treatm | | | ent | | | comple | | | maxim. | | | Detail | | | s: | | | LWBS | | | Securi | | | ty | | | Events | | | (18 | | | Mo.) | | | Count | | | Elopem | | | ent 1 | | | Total | | | 1 ED | | | Care | | | Guidel | | | inesTh | | | ere | | | are | | | curren | | | tly no | | | ED | | | Care | | | Guidel | | | eladio | | | for | | | this | | | patien | | | t. | | | Please | | | check | | | your | | | facili | | | ty's | | | medica | | | l | | | record | | | s | | | system | | | .Care | | | Histor | | | yMedic | | | al/Meenakshi | | | [email or web address] | | | /18/19 | | | 12:00 | | | AM | | | [facility] | | | Hospit | | | al | | | PATIEN | | | T HAS | | | A | | | NEURO | | | INTERV | | | ENTION | | | AL | | | SPECIA | | | LIST | | | AT | | | [facility] | | | - DR | | | BALDWI | | | N.9/17 | | | /18 | | | 12:00 | | | AM | | | [facility] | | | Hospit | | | al | | | [facility] is | | | | | | unable | | | to | | | contac | | | t | | | patien | | | t on | | | patien | | | t | | | friend | | | s | | | phone | | | number | | | | | | provid | | | ed. | | | Please | | | have | | | patien | | | t | | | provid | | | e an | | | update | | | on | | | contac | | | t | | | inform | | | ation. | | | Or | | | provid | | | e [facility] | | | contac | | | t | | | Katy | | | | | | [phone] | | [phone] | | | so | | | [facility] | | | can | | | help | | | patien | | | t | | | connec | | | t to | | | commun | | | ity | | | resour | | | nancy.9/ | | | 11/18 | | | 12:00 | | | AM | | | [facility] | | | [facility] | | | alCare | | | | | | Recomm | | | endati | | | on: | | | USE | | | EXTREM | | | E | | | CAUTIO | | | N IN | | | GIVING | | | | | | NARCOT | | | ICS TO | | | THIS | | | PATIEN | | | T. | | | Avoid | | | Discha | | | rge | | | Narcot | | | ic | | | prescr | | | iption | | | s if | | | at all | | | | | | possib | | | le. | | | Please | | | use | | | clinic | | | al | | | judgem | | | ent.Th | | | is | | | patien | | | t has | | | had 5 | | | or | | | more | | | Emerge | | | ncy | | | Depart | | | ment | | | visits | | | in | | | the | | | last | | | 12 | | | months | | | .? | | | Patien | | | t | | | requir | | | es | | | educat | | | ion on | | | the | | | scope | | | and | | | purpos | | | e of | | | the ED | | | as an | | | acute | | | care | | | provid | | | er not | | | a | | | Primar | | | y Care | | | | | | Provid | | | er and | | | | | | should | | | not | | | be | | | utiliz | | | ed for | | | | | | chroni | | | c | | | condit | | | ions.T | | | hese | | | are | | | guidel | | | eladio | | | and | | | the | | | provid | | | er | | | should | | | | | | exerci | | | se | | | clinic | | | al | | | judgme | | | nt | | | when | | | provid | | | ing | | | care.P | | | rescri | | | ption | | | Drug | | | Report | | | (12 | | | Mo.)PD | | | MP | | | query | | | found | | | no | | | report | | | .E.D. | | | Visit | | | Count | | | (12 | | | mo.)Fa | | | cility | | | | | | Visits | | | Low | | | Acuity | | | [facility] | | | | | | [facility] | id[facility] | | | Hospit | | | al 1 0 | | | | | | [facility] | | | | | | Region | | | al | | | Medica | | | l | | | Center | | | 2 0 | | | Provid | | | ence | | | St. | | | [facility] | | | Medica | | | l | | | Center | | | 1 0 | | | [facility] | | | y | | | Hospit | | | al 7 0 | | | Total | | | 11 0 | | | Note: | | | Visits | | | | | | indica | | | te | | | total | | | known | | | visits | | | . | | | Medica | | | id Low | | | | | | Acuity | | | Dx | | | are | | | the | | | number | | | of | | | primar | | | y | | | diagno | | | ses on | | | the | | | Medica | | | id's | | | Low | | | Acuity | | | dx | | | list. | | | | | | Recent | | | | | | Emerge | | | ncy | | | Depart | | | ment | | | Visit | | | [facility] | | | yShowi | | | ng 10 | | | most | | | recent | | | | | | visits | | | out | | | of 11 | | | in the | | | past | | | 12 | | | months | | | Date | | | Facili | | | ty | | | City | | | State | | | Type | | | Diagno | | | ses or | | | Chief | | | | | | Compla | | | int | | | Aug | | | 11, | | | 2019 | | | Provid | | | ence | | | St. | | | [facility] | | | [facility] | | | [place] | | | [place] | | | Emerge | | | ncy | | | right | | | elbow | | | | | | injury | | | [place] | | | 23, | | | 2019 | | | [facility] | | | | | | Region | | | al | | | [facility] | | | [place] | | | [place] | | | Emerge | | | ncy | | | Neck | | | Pain | | | | | | Should | | | er | | | Pain | | | | | | Other | | | cervic | | | al | | | disc | | | degene | | | ration | | | , | | | unspec | | | ified | | | cervic | | | al | | | region | | | | | | Pain | | | in | | | right | | | should | | | er | | | Radicu | | | lopath | | | y, | | | cervic | | | al | | | region | | | [place] | | | 17, | | | 2019 | | | [facility] | | | [facility] | | | [place] | | | [place] | | | Emerge | | | ncy | | | | | | Cervic | | | al | | | disc | | | disord | | | er, | | | unspec | | | ified, | | | | | | unspec | | | ified | | | cervic | | | al | | | region | | | | | | Unspec | | | ified | | | thorac | | | ic, | | | thorac | | | olumba | | | r and | | | lumbos | | | acral | | | interv | | | ertebr | | | al | | | disc | | | disord | | | er | | | Low | | | back | | | pain | | | | | | Other | | | long | | | term | | | (curre | | | nt) | | | drug | | | therap | | | y | | | Epilep | | | sy, | | | unspec | | | ified, | | | not | | | intrac | | | table, | | | | | | withou | | | t | | | status | | | | | | epilep | | | ticus | | | | | | Bipola | | | r | | | disord | | | er, | | | unspec | | | ified | | | | | | Allerg | | | y | | | status | | | to | | | other | | | drugs, | | | | | | medica | | | ments | | | and | | | biolog | | | ical | | | substa | | | nces | | | status | | | | | | Chroni | | | c | | | obstru | | | ctive | | | pulmon | | | tom | | | diseas | | | e, | | | unspec | | | ified | | | | | | Essent | | | ial | | | (prima | | | ry) | | | hypert | | | ension | | | | | | Post-t | | | raumat | | | ic | | | stress | | | | | | disord | | | er, | | | unspec | | | ified | | | Feb | | | 13, | | | 2019 | | | [facility] | | | | | | Region | | | al | | | [facility] | | | [place] | | | [place] | | | Emerge | | | ncy | | | Fall | | | | | | Referr | | | al | | | Unspec | | | ified | | | convul | | | sions | | | | | | Unspec | | | ified | | | fall, | | | initia | | | l | | | encoun | | | ter | | | | | | Strain | | | of | | | muscle | | | , | | | fascia | | | and | | | tendon | | | of | | | lower | | | back, | | | initia | | | l | | | encoun | | | ter | | | Chest | | | pain, | | | | | | unspec | | | ified | | | Shaun | | | 17, | | | 2019 | | | [facility] | [facility] | | | [place] | | | [place] | | | Emerge | | | ncy | | | | | | Unspec | | | ified | | | monone | | | uropat | | | hy of | | | bilate | | | ral | | | lower | | | limbs | | | | | | Acute | | | nasoph | | | aryngi | | | tis | | | [commo | | | n | | | cold] | | | | | | Anxiet | | | y | | | disord | | | er, | | | unspec | | | ified | | | | | | Allerg | | | y | | | status | | | to | | | other | | | drugs, | | | | | | medica | | | ments | | | and | | | biolog | | | ical | | | substa | | | nces | | | status | | | | | | Chroni | | | c | | | obstru | | | ctive | | | pulmon | | | tom | | | diseas | | | e, | | | unspec | | | ified | | | | | | Person | | | al | | | histor | | | y of | | | other | | | infect | | | ious | | | and | | | parasi | | | tic | | | diseas | | | es | | | Advers | | | e | | | effect | | | of | | | select | | | wilmer | | | seroto | | | jackson | | | and | | | norepi | | | nephri | | | ne | | | reupta | | | ke | | | inhibi | | | tors, | | | initia | | | l | | | encoun | | | ter | | | | | | Syncop | | | e and | | | collap | | | se | | | Other | | | long | | | term | | | (curre | | | nt) | | | drug | | | therap | | | y | | | Dizzin | | | ess | | | and | | | giddin | | | ess | | | Sep | | | 15, | | | 2018 | | | [facility] | | | [place] | | | [place] | | | Emerge | | | ncy | | | | | | Restle | | | ssness | | | and | | | agitat | | | ion | | | Other | | | long | | | term | | | (curre | | | nt) | | | drug | | | therap | | | y | | | Chroni | | | c | | | obstru | | | ctive | | | pulmon | | | tom | | | diseas | | | e with | | | | | | (acute | | | ) | | | exacer | | | bation | | | | | | Essent | | | ial | | | (prima | | | ry) | | | hypert | | | ension | | | | | | Anxiet | | | y | | | disord | | | er, | | | unspec | | | ified | | | | | | Allerg | | | y | | | status | | | to | | | other | | | drugs, | | | | | | medica | | | ments | | | and | | | biolog | | | ical | | | substa | | | nces | | | status | | | Sep | | | 14, | | | 2018 | | | [facility] | | | [place] | | | [place] | | | Emerge | | | ncy | | | | | | Proced | | | ure | | | and | | | treatm | | | ent | | | not | | | kris | | | d out | | | due to | | | | | | patien | | | t | | | leavin | | | g | | | prior | | | to | | | being | | | seen | | | by | | | health | | | care | | | provid | | | er | | | Encoun | | | ter | | | for | | | other | | | genera | | | l | | | examin | | | ation | | | Sep | | | 10, | | | 2018 | | | [facility] | | [facility] | | | H. | | | [place] | | | [place] | | | Emerge | | | ncy | | | Chief | | | Compla | | | int: | | | SOB | | | Sep | | | 10, | | | 2018 | | | [facility] | [facility] | | | [place] | | [place] | | | Emerge | | | ncy | | | Panic | | | | | | disord | | | er | | | [episo | | | dic | | | paroxy | | | smal | | | anxiet | | | y] | | | Other | | | long | | | term | | | (curre | | | nt) | | | drug | | | therap | | | y | | | Allerg | | | y | | | status | | | to | | | other | | | drugs, | | | | | | medica | | | ments | | | and | | | biolog | | | ical | | | substa | | | nces | | | status | | | | | | Shortn | | | ess of | | | | | | breath | | | | | | Epilep | | | sy, | | | unspec | | | ified, | | | not | | | intrac | | | table, | | | | | | withou | | | t | | | status | | | | | | epilep | | | ticus | | | | | | Essent | | | ial | | | (prima | | | ry) | | | hypert | | | ension | | | Sep | | | 10, | | | 2018 | | | [facility] | | | [place] | [place] | | | Emerge | | | ncy | | | | | | Essent | | | ial | | | (prima | | | ry) | | | hypert | | | ension | | | | | | Migrai | | | ne, | | | unspec | | | ified, | | | not | | | intrac | | | table, | | | | | | withou | | | t | | | status | | | | | | migrai | | | nosus | | | | | | Shortn | | | ess of | | | | | | breath | | | | | | Allerg | | | y | | | status | | | to | | | other | | | drugs, | | | | | | medica | | | ments | | | and | | | biolog | | | ical | | | substa | | | nces | | | status | | | | | | Other | | | long | | | term | | | (curre | | | nt) | | | drug | | | therap | | | y | | | Chroni | | | c | | | obstru | | | ctive | | | pulmon | | | tom | | | diseas | | | e with | | | | | | (acute | | | ) | | | exacer | | | bation | | | | | | Recent | | | | | | Inpati | | | ent | | | Visit | | | [facility] | | | yDate | | | Facili | | | ty | | | City | | | State | | | Type | | | Diagno | | | ses or | | | Chief | | | | | | Compla | | | int | | | Feb | | | 13, | | | 2019 | | | [facility] | | | | | | Region | | | al | | | [facility] | | | [place] | | | [place] | | | Genera | | | l | | | Medici | | | ne | | | Unspec | | | ified | | | convul | | | sions | | | | | | Strain | | | of | | | muscle | | | , | | | fascia | | | and | | | tendon | | | of | | | lower | | | back, | | | initia | | | l | | | encoun | | | ter | | | Chest | | | pain, | | | | | | unspec | | | ified | | | | | | Unspec | | | ified | | | fall, | | | initia | | | l | | | encoun | | | ter | | | Low | | | back | | | pain | | | | | | Radicu | | | lopath | | | y, | | | lumbar | | | | | | region | | | Sep | | | 10, | | | 2018 | | | [facility] | | [facility] | | | H. | | | [place] | | | [place] | | | Medica | | | l | | | Surgic | | | al | | | 0. | | | Shortn | | | ess of | | | | | | breath | | | 1. | | | | | | Chroni | | | c | | | obstru | | | ctive | | | pulmon | | | tom | | | diseas | | | e with | | | acute | | | lower | | | | | | respir | | | atory | | | infect | | | ion | | | 3. | | | Acute | | | bronch | | | itis | | | due to | | | | | | rhinov | | | irus | | | 4. | | | Chroni | | | c | | | obstru | | | ctive | | | pulmon | | | tom | | | diseas | | | e with | | | | | | (acute | | | ) | | | exacer | | | bation | | | 5. | | | | | | Cannab | | | is | | | depend | | | ence, | | | uncomp | | | licate | | | d | | | 6. | | | Bipola | | | r | | | disord | | | er, | | | unspec | | | ified | | | 7. | | | Epilep | | | sy, | | | unspec | | | ified, | | | not | | | intrac | | | table, | | | | | | withou | | | t | | | status | | | | | | epilep | | | ticus | | | 8. | | | Do not | | | | | | resusc | | | itate | | | 9. | | | Polyne | | | uropat | | | hy, | | | unspec | | | ified | | | 10. | | | | | | Noninf | | | ective | | | | | | gastro | | | enteri | | | tis | | | and | | | coliti | | | s, | | | unspec | | | ified | | | Care | | | TeamPr | | | ovider | | | PRC | | | Type | | | Phone | | | Fax | | | Servic | | | e | | | Dates | | | Cisner | | | os, | | | Nazanin | | | Case | | | Manage | | | r/Care | | | | | | Coordi | | | nator | | | ([phone]) | | | [phone] | | | 10 | | | May 8, | | | 2018 | | | - | | | Curren | | | t | | | Cisner | | | os, | | | Nazanin | | | | | | Primar | | | y Care | | | ([phone]) | | | | | | [phone] | | | 10 | | | May 8, | | | 2018 | | | - | | | Curren | | | t | | | Jax T | | | Cabrera | | | | | | Primar | | | y Care | | | | | | Curren | | | t | | | [facility] | | | tive | | | Portal | | | This | | | patien | | | t has | | | regist | | | ered | | | at the | | | | | | Provid | | | ence | | | St. | | | [facility] | | | Medica | | | l | | | Center | | | | | | Emerge | | | ncy | | | Depart | | | ment | | | For | | | more | | | inform | | | ation | | | visit: | | | | | | https: | | | //secu | | | [email or web address] | | | ecarep | | | [email or web address] | | | [email or web address] | | | ent/e9 | | | [phone] | | | [id number] | | | [id number] | | | [phone] | | | [id number] | | | [id number] | | | PLEASE | | | NOTE: | | | 1. | | | Any | | | care | | | recomm | | | endati | | | ons | | | and | | | other | | | clinic | | | al | | | inform | | | ation | | | are | | | provid | | | ed as | | | guidel | | | eladio | | | or for | | | | | | histor | | | ical | | | purpos | | | es | | | only, | | | and | | | provid | | | ers | | | should | | | | | | exerci | | | se | | | their | | | own | | | clinic | | | al | | | judgme | | | nt | | | when | | | provid | | | ing | | | care. | | | 2. | | | You | | | may | | | only | | | use | | | this | | | inform | | | ation | | | for | | | purpos | | | es of | | | treatm | | | ent, | | | paymen | | | t or | | | health | | | care | | | operat | | | ions | | | activi | | | ties, | | | and | | | subjec | | | t to | | | the | | | limita | | | tions | | | of | | | applic | | | able | | | [facility] | | | tive | | | Polici | | | es. | | | 3. | | | You | | | should | | | | | | consul | | | t | | | direct | | | ly | | | with | | | the | | | organi | | | zation | | | that | | | provid | | | ed a | | | care | | | guidel | | | ine or | | | other | | | | | | clinic | | | al | | | histor | | | y with | | | any | | | questi | | | ons | | | about | | | additi | | | onal | | | inform | | | ation | | | or | | | accura | | | cy or | | | comple | | | teness | | | of | | | inform | | | ation | | | provid | | | ed.? | | | 2019 | | | [facility] | | | tive | | | Medica | | | l | | | Techn[employer] | | | logies | | | , Inc[employer] | | | - | | | [email or web address] | | | llecti | | | vemedi | | | [email or web address] | | | m | +---+--------+ documented in this encounter Results XR Elbow Right 3 + Vw (12/25/2018 2:59 PM PDT) + + | Specimen | + + | | + + + + + | Narrative | Performed At | + + + | CLINICAL INFORMATION: assess for fracture. COMPARISON: None | [facility] | | available. FINDINGS: 3 views of the right elbow. Bones: No | | | fracture or dislocation. Chronic fracture deformity at the proximal | | | ulna. Joints: No joint effusion. Joint spaces appear preserved. | | | Soft tissue: Mineralized bodies are noted in the distal aspect of | | | the triceps muscle/tendon. Tiny mineralized body also noted at the | | | radial margin of the humeral radial joint. IMPRESSION - No | | | acute osseous abnormality. Chronic proximal ulna fracture changes. | | | Multiple mineralized soft tissue bodies are likely related to a | | | prior injury. Possible small intra-articular loose body at the | | | radial margin of the humeral radial joint. Dictated and Signed | | | by: Aubrey Martin MD Electronically signed: 12/25/2018 4:32 PM | | + + + + + | Procedure Note | + + | Danay, Rad Results In - 12/25/2018 4:36 PM PDT CLINICAL INFORMATION: assess for | | fracture.COMPARISON: None available.FINDINGS: 3 views of the right elbow. Bones: No | | fracture or dislocation. Chronic fracture deformity at the proximalulna.Joints: No | | joint effusion. Joint spaces appear preserved.Soft tissue: Mineralized bodies are noted | | in the distal aspect of the tricepsmuscle/tendon. Tiny mineralized body also noted at | | the radial margin of thehumeral radial joint.IMPRESSION -No acute osseous | | abnormality.Chronic proximal ulna fracture changes.Multiple mineralized soft tissue | | bodies are likely related to a prior injury. Possible small intra-articular loose body | | at the radial margin of the humeralradial joint.Dictated and Signed by: Aubrey Martin | | Electronically signed: 12/25/2018 4:32 PM | |Joints: No joint effusion. Joint spaces appear preserved. | | | |Soft tissue: Mineralized bodies are noted in the distal aspect of the triceps | |muscle/tendon. Tiny mineralized body also noted at the radial margin of the | |humeral radial joint. | | | |IMPRESSION - | | | |No acute osseous abnormality. | | | |Chronic proximal ulna fracture changes. | | | |Multiple mineralized soft tissue bodies are likely related to a prior injury. | |Possible small intra-articular loose body at the radial margin of the humeral | |radial joint. | | | |Dictated and Signed by: Aubrey Martin MD | | Electronically signed: 12/25/2018 4:32 PM | + + + +---------+ + + | Performing | Address | City/State/Zipcode | Phone Number | | Organization | | | | + +---------+ + + | [facility] | | | | + +---------+ + + documented in this encounter Visit Diagnoses + + | Diagnosis | + + | Closed fracture of right elbow, initial encounter - Primary | + + documented in this encounter Administered Medications + +--------+ + +------+------+ | Medication Order | MAR | Action | Dose | Rate | Site | | | Action | Date | | | | + +--------+ + +------+------+ | oxyCODONE-acetaminophen | Given | 12/26/19 | 1 tablet | | | | (PERCOCET) 5-325 mg per tablet 1 | | 19 3:21 | | | | | tablet 1 tablet, Oral, ONCE, Sun | | PM PDT | | | | | 12/25/18 at 1510, For 1 dose | | | | | | + +--------+ + +------+------+ +---+---+ | | | +---+---+ documented in this encounter
--- OUTSIDE RECORDS SUMMARY | ~2019-11-25 | XMS | Encounter Summary ---
Demographics + + + | Address | [address] | | | [place] [address] | + + + | Home Phone | | + + + | Preferred Language | Unknown | + + + | Marital Status | | + + + | Mu-Ism Affiliation | 1013 | + + + | Race | Unknown | + + + | Ethnic Group | Unknown | + + + Author + + + | Author | [facility] | | | and [place] | + + + | Organization | [facility] | | | and [...] [place] | | | | | [address] | | + + + + + Care Team Providers + +------+ + | Care Manager Assessment Name | Role | Phone | + +------+ + | Jax Cabrera MD | PCP | | + +------+ + Encounter Details +--------+ + + + + | Date | Type | Department | Care Team | Description | +--------+ + + + + | 03/21/ | Hospital | [facility] | Skyler Dong, | | | 2019 | Encounter | [facility] | [address] | | | | | [address] | | | | | [address], | [place] [address] | | | | | [place] [address] | [phone] | | | | | [phone] | | | +--------+ + + + [...] + + documented as of this encounter Medications at Time of Discharge [...] [place] | | | | | | [address] | | | | | | | | +--------+---------+ + + + documented as of this encounter Procedures + +--------+ + + + | Procedure Name | Priori | Date/Time | Associated Diagnosis | Comments | | | ty | | | | + +--------+ + + + | CJ Manning ARM | Routin | 03/21/2019 | | Results for this | | | e | 7:34 AM | | procedure are in the | | | | PST | | results section. | + +--------+ + + + documented in this encounter Results CJ Sotomayor (03/21/2019 7:34 AM PST) + + | Specimen | + + | | + + + + + | Narrative | Performed At | + + + | This exam has been finalized by a system utility. Please review | [facility] | | the encounter or progress note for any imaging results. | | + + + + + | Procedure Note | + + | Bailey User - 06/01/2019 6:35 AM PST This exam has been finalized by a system | | utility. Please review the encounter or progress note for any imaging results. | + + + +---------+ + + | Performing | Address | City/State/Zipcode | Phone Number | | Organization | | | | + +---------+ + + | [facility] | | | | + +---------+ + + documented in this encounter Visit Diagnoses Not on filedocumented in this encounter"
--- OUTSIDE RECORDS SUMMARY | ~2019-11-25 | XMS | Encounter Summary ---
Demographics + + + | Address | [address] | | | [place] [address] | + + + | Home Phone | | + + + | Preferred Language | Unknown | + + + | Marital Status | | + + + | Zoroastrian Affiliation | 1013 | + + + | Race | Unknown | + + + | Ethnic Group | Unknown | + + + Author + + + | Author | [facility] | | | and [place] | + + + | Organization | [facility] | | | [...] [place] | | | | | [address] | | + + + + + Care Team Providers + +------+ + | Care Paper Winder Name | Role | Phone | + +------+ + | Jax Cabrera MD | PCP | | + +------+ + Reason for Visit + +--------+ + | Reason | Onset | Comments | | | Date | | + +--------+ + | Follow-up | 08/06/ | | | | 2019 | | + +--------+ + Encounter Details +--------+ + + + + | Date | Type | Department | Care Team | Description | +--------+ + + + + | 08/06/ | Telephone | [facility] | Deyvi Kovacs, | Follow-up | | 2019 | | [facility] | FISH CUTTER [address] | | | | | [address] | | | | | [address] | [place] [address] | | | | | [place], [place] | [phone] | | | | | [address] | | | | | | [phone] | | | +--------+ + + + [...] this encounter Miscellaneous Notes Telephone Encounter - Shannan Escobedo, Breakdown Mill Operator - 08/07/2019 8:10 AM Niki martino stated he is unable to come to his 08/08/19 appt due to the COVID-19. Patient will call back to reschedule once things get back to normal. documented in this encounter Plan of Treatment +--------+---------+ + + + | Date | Type | Specialty | Care Team | Description | +--------+---------+ + + + | 12/05/ | Office | Pain Medicine | Vitaliy Mendoza, | | 2019 | Visit | | DO [address] | | | | | | [place] | | | | | | [phone] | | | | | | | | +--------+---------+ + + + documented as of this encounter Visit Diagnoses Not on filedocumented in this encounter"
--- OUTSIDE RECORDS SUMMARY | ~2019-11-25 | XMS | Encounter Summary ---
Demographics + + + | Address | [address] | | | [place] [address] | + + + | Home Phone | | + + + | Preferred Language | Unknown | + + + | Marital Status | Unmarried Domestic Partner | + + + | Mandaeism Affiliation | NON | + + + | Race | White | + + + | Ethnic Group | Not or | + + + Author + + + | Author | [facility] | + + + | Organization | [facility] | + + + | Address | Unknown | + + + | Phone | Unavailable | + + + Support + + + + + | Name | Relationship | Address | Phone | + + + + + | Gabriel Greenberg | ECON | [address] | | | | | [place] | | | | | [address] | | + + + + + Care Team Providers + +------+ + | Care Survey Associate Name | Role | Phone | + +------+ + | Jax Cabrera MD | PCP | | + +------+ + Reason for Visit + + + | Reason | Comments | + + + | Refill Request | | + + + Encounter Details +--------+ + + + + | Date | Type | Department | Care Team | Description | +--------+ + + + + | 05/28/ | Telephone | [facility] | Fred | Refsunita Request | | 2017 | | at [facility] | MD Caio | | | | | [address] | [address] | | | | | Loop Physician's | [address] [facility], | | | | | Pavilion, 3rd floor | [place] [address] | | | | | [place], [place] | [phone] | | | | | [address] | | | | | | [phone] | | | +--------+ + + + [...]
--- OUTSIDE RECORDS SUMMARY | ~2019-11-25 | XMS | Encounter Summary ---
Demographics + + + | Address | [address] | | | [place] [address] | + + + | Home Phone | | + + + | Preferred Language | Unknown | + + + | Marital Status | Unmarried Domestic Partner | + + + | Nondenominational Affiliation | NON | + + + | Race | White | + + + | Ethnic Group | Not or | + + + Author + + + | Author | [email or web address] | + + + | Organization | [facility] | + + + | Address | Unknown | + + + | Phone | Unavailable | + + + Support + + + + + | Name | Relationship | Address | Phone | + + + + + | Gabriel Greenberg | ECON | [address] | | | | | [place] | | | | | [address] | | + + + + + Care Team Providers + +------+ + | Care Boarding Machine Operator Name | Role | Phone | + +------+ + | Jax Cabrera MD | PCP | | + +------+ + Reason for Visit + + + | Reason | Comments | + + + | Refill Request | | + + + Encounter Details +--------+--------+ + + + | Date | Type | Department | Care Team | Description | +--------+--------+ + + + | 11/23/ | Refill | [facility] | Fred, | Refill Request | | 2017 | | at [facility] | MD Caio | | | | | [address] | [address] | | | | | Loop Physician's | [address] [facility], | | | | | Pavilion, 3rd floor | [place] [address] | | | | | [place], [place] | [phone] | | | | | [address] | | | | | | [phone] | | | +--------+--------+ + + + Social History + +-------+ [...] + | Diagnosis | + + | HIV (human immunodeficiency virus infection) (HCC) Asymptomatic human | | immunodeficiency virus (HIV) infection status | + + | Diarrhea, unspecified type | + + documented in this encounter"
--- OUTSIDE RECORDS SUMMARY | ~2019-11-25 | XMS | Encounter Summary ---
Demographics + + + | Address | [address] | | | [place] [address] | + + + | Home Phone | | + + + | Preferred Language | Unknown | + + + | Marital Status | Unmarried Domestic Partner | + + + | Quaker Affiliation | NON | + + + | Race | White | + + + | Ethnic Group | Not or | + + + Author + + + | Author | [facility] | + + + | Organization | [facility] | + + + | Address | Unknown | + + + | Phone | Unavailable | + + + Support + + + + + | Name | Relationship | Address | Phone | + + + + + | Gabriel Greenberg | ECON | [address] | | | | | [place] | | | | | [address] | | + + + + + Care Team Providers + +------+ + | Care Board Stacker Name | Role | Phone | + +------+ + | Jax Cabrera MD | PCP | | + +------+ + Reason for Visit AUTH/CERT +--------+--------+ + + + + | Status | Reason | Specialty | Diagnoses / | Referred By | Referred To | | | | | Procedures | Contact | Contact | +--------+--------+ + + + + | | | | | | | +--------+--------+ + + + + Encounter Details +--------+ + + + + | Date | Type | Department | Care Team | Description | +--------+ + + + + | 03/08/ | Hospital | [facility] [address] | Clemente Quan, | | | 2016 | Encounter | [address] | [address] | | | | | [facility] | [address] | | | | | Whitney Yangon | [place], [place] | | | | | (MNP/[facility]) | [address] | | | | | [place], [place] | [phone] | | | | | [address] | | | | | | [phone] | | | +--------+ + + + [...] Pressure | 117/82 | 03/08/2017 9:00 AM | | | | | PDT | | + + + + + | Pulse | 55 | 03/08/2017 9:00 AM | | | | | PDT | | + + + + + | Temperature | 36.6 C (97.9 F) | 03/08/2017 8:38 AM | | | | | PDT | | + + + + + | Respiratory Rate | 16 | 03/08/2017 9:00 AM | | | | | PDT | | + + + + + | Oxygen Saturation | 96% | 03/08/2017 9:00 AM | | | | | PDT | | + + + + + | Inhaled Oxygen | - | - | | | Concentration | | | | + + + + + | Weight | 71.2 kg (157 lb) | 03/08/2017 7:00 AM | | | | | PDT | | + + + + + | Height | 167.6 cm (5' 6") | 03/08/2017 7:00 AM | | | | | PDT | | + + + + + | Body Mass Index | 25.34 | 03/08/2017 7:00 AM | | | | | PDT | | + + + + + documented in this encounter Discharge Instructions Gwendolyn Jennings RN - 03/08/2017Home Care Instructions after Colonoscopy You may resume your normal diet and medications unless told otherwise. Medications The medications you received can cause you to be forgetful and drowsy and will take the rem ainder of the day to wear off. DO NOT drink alcohol, drive, operate heavy machinery, sign legal documents, or make major d ecisions until tomorrow. Common After Effects ? Mild abdominal pain, bloating, and excessive gas. This is caused by the air that was put in your colon during the procedure. These symptoms will improve as you pass gas. ? You may bruise at your IV site. If you have pain, redness, or swelling at your IV site ap ply a warm compress. Activity Light activity such as walking will help you pass the air that was put into your colon. Complications Call your GI doctor if you have: Abnormal pain or any new unexplained symptoms. Bright red rectal bleeding Fever above 101.5 Redness, pain, or swelling at your IV site that is not relieved with warm compress. For any questions related to your procedure call: Wednesday- Wednesday 8:00- 4:30 Call the endoscopy department toll free ext. [phone] or After business hours or on weekends and holidays call the Hospital Data Security Administrator toll free [phone] Ext. [phone] or and have the GI doctor elevator constructor paged. The provider who performed your procedure is: Dr. Quan Results of your colonoscopy: Normal exam from what we could see, prep was not ideal. Will need two day prep, please schedule next colonoscopy electively within next 1-3 years. Recommended follow up Colonoscopy: 1-3 years Follow up Appointments with: Referring provider as needed. Thank you for choosing [facility]! Your primary care provider or referring provider will receive copies of the procedure repor t and all pathology reports with recommendations for treatment if needed. If Noted above that biopsies were taken or polyps removed we will receive the results in ap proximately 1 week. If you have not heard from us after 2 weeks please call for your results . documented in this encounter Medications at Time of Discharge + + + +---------+ + + | Medication | Sig | Dispensed | Refills | Start | End Date | | | | | | Date | | + + + +---------+ + + | albuterol (PROAIR | Inhale 1-2 puffs by | 1 | 2 | 06/17/19 | | | HFA) 90 | mouth every six | Inhaler | | 17 | | | mcg/actuation | hours as needed. | | | | | | inhalation HFA | Contact provider if | | | | | | aerosol | using >1 | | | | | | inhalerIndications: | inhaler/month. | | | | | | Mild intermittent | (Pharmacy: please | | | | | | asthma without | disp whichever | | | | | | complication | albuterol is on | | | | | | | formulary) | | | | | + + + +---------+ + + | crofelemer 125 mg | Take 1 tablet by | 60 | 2 | 11/24/19 | | | oral tablet,delayed | mouth every twelve | tablet | | 17 | | | release | hours. | | | | | | (DR/EC)Indications: | | | | | | | HIV (human | | | | | | | immunodeficiency | | | | | | | virus infection) | | | | | | | (HCC), Diarrhea, | | | | | | | unspecified type | | | | | | + + + +---------+ + + | | Rx per PCP. Per | | 0 | 05/01/20 | | | diphenoxylate-atropi | patient takes as | | | 16 | | | ne 2.5-0.025 mg oral | needed for diarrhea. | | | | | | tablet | | | | | | + + + +---------+ + + | divalproex DR 250 | Rx per PCP. Per | | 0 | 05/01/20 | | | mg oral | patient takes 1 | | | 16 | | | tablet,delayed | tablet BID for | | | | | | release (DR/EC) | seizure d/o. | | | | | + + + +---------+ + + | dolutegravir | Take 1 tablet by | 30 | 3 | 06/17/19 | | | (TIVICAY) 50 mg oral | mouth once daily. | tablet | | 17 | | | tabletIndications: | | | | | | | HIV (human | | | | | | | immunodeficiency | | | | | | | virus infection) | | | | | | | ([facility]) | | | | | | + + + +---------+ + + | | Take 1 tablet by | 30 | 3 | 06/17/19 | | | emtricitabine-tenofo | mouth once daily. | tablet | | 17 | | | vir alafenamide | | | | | | | 200-25 mg oral | | | | | | | tabletIndications: | | | | | | | HIV (human | | | | | | | immunodeficiency | | | | | | | virus infection) | | | | | | | (HCC) | | | | | | + + + +---------+ + + | promethazine 12.5 | Takes as needed for | 30 | 0 | 08/05/19 | | | mg oral tablet | nausea. | tablet | | 17 | | + + + +---------+ + + | salmeterol | Rx per PCP. Per | | 0 | 05/01/20 | | | (SEREVENT DISKUS) 50 | patient takes 2 | | | 16 | | | mcg/dose inhalation | puffs as needed. | | | | | | blister with device | | | | | | + + + +---------+ + + | SUMAtriptan 100 mg | Take by mouth. | | 0 | | | | oral tablet | | | | | | + + + +---------+ + + | telmisartan 80 mg | Take 1 tablet by | 30 | 0 | 03/09/20 | | | oral | mouth once daily. | tablet | | 16 | | | tabletIndications: | Indications: | | | | | | hypertension | HYPERTENSION | | | | | + + + +---------+ + + | traZODone 100 mg | Rx per PCP. Per | | 0 | 05/01/20 | | | oral tablet | patient takes 1 | | | 16 | | | | tablet every evening | | | | | | | for sleep. | | | | | + + + +---------+ + + documented as of this encounter Progress Notes Clemente Quan MD - 03/08/2017 8:03 AM PDTFormatting of this note might be different f rom the original. PRE PROCEDURE NOTE: MR# [id number] Subjective: Ivan Giles is a 51 y.o. male who presents today for screening colonosco py. He was under the impression that he had "45 polyps" on his last exam, but I see path fr om 2004 with TI and random colon biopsies only. 2 aunts with colon cancer per patient. Patient History Reviewed Medications reviewed Allergies: Allergies as of 01/26/2017 - Fully Reviewed 08/17/2016 Allergen Reaction Noted Gabapentin Unknown and Hallucinations 06/01/2013 Phenytoin Diarrhea and Unknown 04/03/2016 Phenytoin sodium extended Unknown 08/15/2015 Pt NPO for 6 hrs. ROS: All others negative. Objective: Vital Signs: BP 146/94 | Pulse 66 | Temp 36.6 C (97.9 F) | Ht 1.676 m (5' 6") | Wt 71.2 kg (157 lb) | SpO2 95% | BMI 25.34 kg/(m^2) Neuro: Patient oriented X3. Mental status clear and intact Mallampati Score: II Neck negative Respiratory: Lungs clear to auscultation bilaterally with good air exchange Cardiovascular: carotid pulse is wnl; no bruit Abdomen: soft, normal active bowel sounds, nontender, no masses, no organomegaly Impression Patient deemed appropriate candidate for planned procedure and sedation. ASA:2 Plan Proceed with screening colonoscopy PARQ held and all questions addressed. Consent obtained. See procedure note 03/08/2017 documented in this encounter Plan of Treatment Not on filedocumented as of this encounter Procedures + +--------+ + + + | Procedure Name | Priori | Date/Time | Associated Diagnosis | Comments | | | ty | | | | + +--------+ + + + | COLONOSCOPY | Routin | 03/08/2017 | Special screening | Results for this | | | e | 8:10 AM | for malignant | procedure are in the | | | | PDT | neoplasm of colon | results section. | + +--------+ + + + documented in this encounter Results COLONOSCOPY (03/08/2017 8:10 AM PDT) + + | Specimen | + + | | + + + +------ --------+ | Narrative | Perfo rmed At | + +------ --------+ | MRN: | [facility] | | [id number] Date: 03/08/2017Patient Name: Ivan Nicole #: | ENDOS COPY | | [id number] of : 1965CSN: [id number] Type: | | | AmbulatoryRoom: GI 2Procedure: ColonoscopyIndications: | | | Screening for colorectal malignant neoplasmProviders: | | | CLEMENTE QUAN MD (Doctor), GWENDOLYN KHALIL RN | | | (Nurse), NED ALEX, Rn Case Manager Hospice | | | (Rn Case Manager Hospice)Referring MD: COLETTE LONGORIAequesting | | | Provider: Medicines: Fentanyl 125 micrograms IV, | | | Midazolam 5 mg IV, Diphenhydramine 25 | | | mg IVComplications: No immediate complications.Procedure: | | | Pre-Anesthesia Assessment: - | | | ASA Grade Assessment: II - A patient with mild | | | systemic disease. Prior to the | | | procedure, a History and Physical with | | | airway assessment was performed (see patient record), | | | and patient medications and allergies were reviewed. | | | The risks and benefits of the procedure | | | and the sedation options and risks | | | were discussed. All questions were | | | answered and informed consent was obtained. After | | | reviewing the risks and benefits, the patient was deemed | | | in satisfactory condition to undergo the | | | procedure. Immediately prior to | | | administration of medications, the | | | patient was re-assessed for adequacy to receive | | | sedatives. The heart rate, respiratory rate, oxygen | | | saturations, blood pressure, adequacy of | | | pulmonary ventilation, and response to | | | care were monitored throughout the | | | procedure. The physical status of the | | | patient was re-assessed after the procedure. | | | The Olympus [id number] Colonoscope #[id number] was | | | introduced through the anus and advanced to the | | | terminal ileum, with identification of | | | the appendiceal orifice and IC valve. | | | The colonoscopy was performed without | | | difficulty. The patient tolerated the | | | procedure well. The quality of the | | | bowel preparation was poor with adherent semi-solid | | | stool mostly in the right colon that was too thick to be | | | washed off.Estimated Blood Loss: | | | Estimated blood loss: none.Findings: The perianal and digital | | | rectal examinations were normal. The entire examined colon | | | appeared normal on direct and retroflexion views within the | | | limits of the prep.Moderate Sedation: Moderate (conscious) | | | sedation was administered by the endoscopy nurse and supervised | | | by the endoscopist. The following parameters were monitored: | | | oxygen saturation, heart rate, blood pressure, respiratory | | | rate, EKG, adequacy of pulmonary ventilation, and response to care. | | | Total physician intraservice time was 15 minutes.Impression: | | | - Preparation of the colon was unsatisfactory. | | | - The entire examined colon is normal on direct and | | | retroflexion views. | | | - No specimens collected.Recommendation: - | | | Discharge patient to home. - Resume | | | previous diet. - Continue present | | | medications. - Repeat colonoscopy | | | electively with a two day prep.CLEMENTE QUAN MD03/08/2017 8:43:38 | | | AMThis report has been signed electronically.Number of Addenda: 0Note | | | Initiated On: 03/08/2017 8:10 [facility] Letter to: JAX CABRERA MD | | | - Resume previous diet. | | | - Continue present medications. | | | - Repeat colonoscopy electively with a two day prep. | | |CLEMENTE QUAN MD | | |03/08/2017 8:43:38 AM | | |This report has been signed electronically. | | |Number of Addenda: 0 | | |Note Initiated On: 03/08/2017 8:10 AM | | | Letter to: | | | JAX CABRERA MD | | + +------ --------+ + +---------+ + + | Performing | Address | City/State/Zipcode | Phone Number | | Organization | | | | + +---------+ + + | [facility] | | | | + +---------+ + + documented in this encounter Visit Diagnoses + + | Diagnosis | + + | Colon cancer screening - Primary Special screening for malignant neoplasms, colon | + + | Special screening for malignant neoplasm of colon Special screening for malignant | | neoplasms, colon | + + documented in this encounter Administered Medications + +--------+ +-------+------+------+ | Medication Order | MAR | Action | Dose | Rate | Site | | | Action | Date | | | | + +--------+ +-------+------+------+ | diphenhydrAMINE (BENADRYL) | Given | 03/08/20 | 25 mg | | | | injection INTRAPROCEDURE PRN, | | 17 8:16 | | | | | Starting Wed03/08/17 at 0816, | | AM PDT | | | | | Until Wed03/08/17 at 815 | | | | | | + +--------+ +-------+------+------+ +---+---+ | | | +---+---+ + +-------+ +--------+---+---+ | fentaNYL (SUBLIMAZE) injection | Given | 03/08/20 | 50 mcg | | | | intravenous, INTRAPROCEDURE PRN, | | 17 8:14 | | | | | Starting Wed03/08/17 at 0814, | | AM PDT | | | | | Until Wed03/08/17 at 0814 | | | | | | + +-------+ +--------+---+---+ +---+---+ | | | +---+---+ + +-------+ +--------+---+---+ | fentaNYL (SUBLIMAZE) injection | Given | 03/08/20 | 50 mcg | | | | intravenous, INTRAPROCEDURE PRN, | | 17 8:16 | | | | | Starting Wed03/08/17 at 0816, | | AM PDT | | | | | Until Wed03/08/17 at 0816 | | | | | | + +-------+ +--------+---+---+ +---+---+ | | | +---+---+ + +-------+ +--------+---+---+ | fentaNYL (SUBLIMAZE) injection | Given | 03/08/20 | 25 mcg | | | | intravenous, INTRAPROCEDURE PRN, | | 17 8:19 | | | | | Starting Wed03/08/17 at 0819, | | AM PDT | | | | | Until Wed03/08/17 at 0819 | | | | | | + +-------+ +--------+---+---+ + +---+ | | | + +---+ | lidocaine viscous (XYLOCAINE | | | VISCOUS) 2 % mucosal solution 15 | | | mL 15 mL, oral, INTRAPROCEDURE | | | PRN, Starting Wed03/08/17 at | | | 0718, Until Wed03/08/17 at 1607, | | | sore oropharynx | | + +---+ | | | + +---+ + +-------+ +------+---+---+ | midazolam (PF) (VERSED) | Given | 03/08/20 | 2 mg | | | | injection INTRAPROCEDURE PRN, | | 17 8:14 | | | | | Starting Wed03/08/17 at 0814, | | AM PDT | | | | | Until Wed03/08/17 at 0814 | | | | | | + +-------+ +------+---+---+ +---+---+ | | | +---+---+ + +-------+ +------+---+---+ | midazolam (PF) (VERSED) | Given | 03/08/20 | 2 mg | | | | injection INTRAPROCEDURE PRN, | | 17 8:16 | | | | | Starting Wed03/08/17 at 0816, | | AM PDT | | | | | Until Wed03/08/17 at 0816 | | | | | | + +-------+ +------+---+---+ +---+---+ | | | +---+---+ + +-------+ +------+---+---+ | midazolam (PF) (VERSED) | Given | 03/08/20 | 1 mg | | | | injection INTRAPROCEDURE PRN, | | 17 8:19 | | | | | Starting Wed03/08/17 at 0819, | | AM PDT | | | | | Until Wed03/08/17 at 08 | | | | | | + +-------+ +------+---+---+ + +---+ | | | + +---+ | simethicone (MYLICON) | | | suspension 3.333 mg 3.333 mg | | | (rounded from 3.3333 mg = 1 | | | drop), oral, INTRAPROCEDURE PRN, | | | Starting Wed03/08/17 at 0718, | | | Until Wed03/08/17 at 1607, | | | bloating, gas bubbles in | | | endoscope | | + +---+ | | | + +---+ + +---------+ + + +---+ | sodium chloride 0.9% IV | New Bag | 03/08/20 | 50 mL/hr | 50 mL/hr | | | infusion 50 mL/hr, intravenous, | | 17 7:45 | | | | | CONTINUOUS, Starting Wed03/08/17 | | AM PDT | | | | | at 0730, Until Wed03/08/17 at | | | | | | | 1607 | | | | | | + +---------+ + + +---+ +---+---+ | | | +---+---+ documented in this encounter
--- OUTSIDE RECORDS SUMMARY | ~2019-11-25 | XMS | Encounter Summary ---
Demographics + + + | Address | [address] | | | [place] [address] | + + + | Home Phone | | + + + | Preferred Language | Unknown | + + + | Marital Status | | + + + | Gnosticism Affiliation | 1013 | + + + | Race | Unknown | + + + | Ethnic Group | Unknown | + + + Author + + + | Author | [facility] | | | and [place] | + + + | Organization | [facility] | | | [...] [place] | | | | | [address] | | + + + + + Care Team Providers + +------+ + | Care Occupational Health And Safety Adviser Name | Role | Phone | + +------+ + | Jax Cabrera MD | PCP | | + +------+ + Reason for Referral Evaluate & Treat (Routine) + + + + + + + | Status | Reason | Specialty | Diagnoses / | Referred By | Referred To | | | | | Procedures | Contact | Contact | + + + + + + + | Authorized | Specialty | Pain Medicine | Diagnoses | Fermín, | Reji, | | | Services | | Neuropathy | Deyvi Hannah, | Vitaliy Malagon DO | | | Required | | due to HIV | [address] | | | | | (HCC) Facet | [address] | [address] | | | | | arthritis | DRIVE [address] | [place], [place] | | | | | of lumbar | B | [address] | | | | | region | [facility], | Phone: | | | | | Sacroiliac | [place] [address] | [phone] | | | | | joint pain | Phone: | Fax: | | | | | Degeneration | [phone] | [phone] | | | | | of | Fax: | | | | | | intervertebr | [phone] | | | | | | al disc of | | | | | | | cervical | | | | | | | region | | | | | | | Degeneration | | | | | | | of thoracic | | | | | | | | | | | | | | intervertebr | | | | | | | al disc | | | + + + + + + + Encounter Details +--------+---------+ + + + | Date | Type | Department | Care Team | Description | +--------+---------+ + + + | 10/23/ | Office | [facility] | Deyvi Kovacs, | Seizure disorder | | 2020 | Visit | [facility] | [address] TR[address] | ([facility]) (Primary Dx); | | | | [address]OLOGY [address] | Neuropathy due to | | | | [address] | [place] [address] | HIV ([facility]); Facet | | | | [place], [place] | [phone] | arthritis of lumbar | | | | [address] | | region; Sacroiliac | | | | [phone] | | joint pain; | | | | | | Degeneration of | | | | | | intervertebral disc | | | | | | of cervical region; | | | | | | Degeneration of | | | | | | thoracic | | | | | | intervertebral disc | +--------+---------+ + + + Social History + +-------+ [...] this encounter Last Filed Vital Signs + +---------+ + + | Vital Sign | Reading | Time Taken | Comments | + +---------+ + + | Blood Pressure | 215/119 | 10/24/2019 9:16 AM | | | | | PDT | | + +---------+ + + | Pulse | 83 | 10/24/2019 9:16 AM | | | | | PDT | | + +---------+ + + | Temperature | - | - | | + +---------+ + + | Respiratory Rate | - | - | | + +---------+ + + | Oxygen Saturation | 97% | 10/24/2019 9:16 AM | | | | | PDT | | + +---------+ + + | Inhaled Oxygen | - | - | | | Concentration | | | | + +---------+ + + | Weight | - | - | | + +---------+ + + | Height | - | - | | + +---------+ + + | Body Mass Index | - | - | | + +---------+ + + documented in this encounter Progress Notes Deyvi Kovacs, MEAT TRIMMER - 10/24/2019 9:45 AM PDT assistant county attorney came to the back to notify us that the patient was refusing to be seen without his partner. In the waiting [facility] the front office staff witnessed the patient having what appeared to be a seizure. Myself and Thelma Subramanian MA, went out to assess the patient who stated he was in severe pain and was quite anxious and agitated. While speaking with the patient he had another small seizur e. The front office staff then called 911 at my request. We then took the patient back to an exam room for privacy and to be assessed. His blood pressure was quite elevated. The EM Ts then arrived and determined that the patient should be taken to the emergency department due to seizure activity. His partner, Gabriel, stated that he also had a seizure on the way i n from [place]. documented in this encounter Plan of Treatment [...] [place] | | | | | | [address] | | | | | | | | +--------+---------+ + + + +---------+ +--------+ + + | Name | Type | Priori | Associated Diagnoses | Order Schedule | | | | ty | | | +---------+ +--------+ + + | Laraiso | Outpatient | Routin | Neuropathy due to | Ordered: 10/24/2019 | | | Referral | e | HIV ([facility]) Facet | | | | | | arthritis of lumbar | | | | | | region Sacroiliac | | | | | | joint pain | | | | | | Degeneration of | | | | | | intervertebral disc | | | | | | of cervical region | | | | | | Degeneration of | | | | | | thoracic | | | | | | intervertebral disc | | +---------+ +--------+ + + documented as of this encounter Visit Diagnoses + + | Diagnosis | + + | Seizure disorder ([facility]) - Primary Unspecified epilepsy without mention of intractable | | epilepsy | + + | 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
--- OUTSIDE RECORDS SUMMARY | ~2019-11-25 | XMS | Encounter Summary ---
Demographics + + + | Address | [address] | | | [place] [address] | + + + | Home Phone | | + + + | Preferred Language | Unknown | + + + | Marital Status | Unmarried Domestic Partner | + + + | Hoahaoism Affiliation | NON | + + + | Race | White | + + + | Ethnic Group | Not or | + + + Author + + + | Author | [facility] | + + + | Organization | [facility] | + + + | Address | Unknown | + + + | Phone | Unavailable | + + + Support + + + + + | Name | Relationship | Address | Phone | + + + + + | Gabriel Greenberg | ECON | [address] | | | | | [place] | | | | | [address] | | + + + + + Care Team Providers + +------+ + | Care Overhead Distribution Engineer Name | Role | Phone | + +------+ + | Jax Cabrera MD | PCP | | + +------+ + Reason for Visit + + + | Reason | Comments | + + + | Lab Results | | + + + Encounter Details +--------+ + + + + | Date | Type | Department | Care Team | Description | +--------+ + + + + | 04/07/ | Telephone | [facility] | Fred, | Lab Results | | 2017 | | at [facility] | MD Caio | | | | | [address] [place] | [address] | | | | | Loop Physician's | [place] [facility], | | | | | Pavilion, 3rd floor | [place] [address] | | | | | [place], [place] | [phone] | | | | | [address] | | | | | | [phone] | | | +--------+ + + + [...]
--- OUTSIDE RECORDS SUMMARY | ~2019-11-25 | XMS | Encounter Summary ---
Demographics + + + | Address | [address] | | | [place] [address] | + + + | Home Phone | | + + + | Preferred Language | Unknown | + + + | Marital Status | Unmarried Domestic Partner | + + + | Jehovah'S Witness Affiliation | NON | + + + | Race | White | + + + | Ethnic Group | Not or | + + + Author + + + | Author | [facility] | + + + | Organization | [facility] | + + + | Address | Unknown | + + + | Phone | Unavailable | + + + Support + + + + + | Name | Relationship | Address | Phone | + + + + + | Gabriel Greenberg | ECON | [address] | | | | | [place] | | | | | [address] | | + + + + + Care Team Providers + +------+ + | Care Dairy Equipment Installer Name | Role | Phone | + +------+ + | Jax Cabrera MD | PCP | | + +------+ + Reason for Visit +--------+ + | Reason | Comments | +--------+ + | Hives | | +--------+ + Encounter Details +--------+ + + + + | Date | Type | Department | Care Team | Description | +--------+ + + + + | 02/12/ | Telephone | [facility] | Lalit Ibarra | | 2017 | | at [facility] | MD Caio | | | | | [address] [place] | [address] | | | | | Loop Physician's | [place] [facility], | | | | | [place], 3rd floor | [place] [address] | | | | | [place], [place] | [phone] | | | | | [address] | | | | | | [phone] | | | +--------+ + + + [...]
--- OUTSIDE RECORDS SUMMARY | ~2019-11-25 | XMS | Encounter Summary ---
Demographics + + + | Address | [address] | | | [place] [address] | + + + | Home Phone | | + + + | Preferred Language | Unknown | + + + | Marital Status | | + + + | Restorationist Affiliation | 1013 | + + + | Race | Unknown | + + + | Ethnic Group | Unknown | + + + Author + + + | Author | [facility] | | | and [place] | + + + | Organization | [facility] | | | and [...] [place] | | | | | [address] | | + + + + + Care Team Providers + +------+ + | Care Lithographic Artist Name | Role | Phone | + +------+ + | Jax Cabrera MD | PCP | | + +------+ + Reason for Visit + +--------+ + | Reason | Onset | Comments | | | Date | | + +--------+ + | Back Pain | 10/22/ | | | | 2019 | | + +--------+ + Encounter Details +--------+ + + + + | Date | Type | Department | Care Team | Description | +--------+ + + + + | 10/22/ | Telephone | [facility] | Deyvi Kovacs, | Back Pain | | 2020 | | [facility] | AUTOCLAVE OPERATOR [address] | | | | | [address] | | | | | [address] | [place] [address] | | | | | [place], [place] | [phone] | | | | | [address] | | | | | | [phone] | | | +--------+ + + + [...] Miscellaneous Notes Telephone Encounter - Thelma Subramanian, Carbon Printer - 10/23/2019 9:46 AM PDTPatient reports having pain that is causing him to fall and his legs are giving out. He says its melony francisco j on the left but moving over to the right side. He has fallen a couple times and ended up with some bruising on his back. He says his BP has been very elevated due to the amount of pain he is in. We will see him tomorrow morning at 0945 documented in this encounter Plan of Treatment [...] [place] | | | | | | [address] | | | | | | | | +--------+---------+ + + + documented as of this encounter Visit Diagnoses Not on filedocumented in this encounter"
--- OUTSIDE RECORDS SUMMARY | ~2019-11-25 | XMS | Encounter Summary ---
Demographics + + + | Address | [address] | | | [place] [address] | + + + | Home Phone | | + + + | Preferred Language | Unknown | + + + | Marital Status | | + + + | Voodoo Affiliation | 1013 | + + + | Race | Unknown | + + + | Ethnic Group | Unknown | + + + Author + + + | Author | [facility] | | | and [place] | + + + | Organization | [facility] | | | and [...] [place] | | | | | [address] | | + + + + + Care Team Providers + +------+ + | Care Maritime Engineer Name | Role | Phone | + +------+ + PCP | Unavailable | + +------+ + Encounter Details +--------+ + + + + | Date | Type | Department | Care Team | Description | +--------+ + + + + | 05/28/ | Emergency | [facility] | Bg Powell, | Respiratory | | 1997 - | | [facility] | [address] | malfunction arising | | | | [facility] | [place]ALES, | from mental factors | | 05/29/ | | [address] | [place] [address] | | | 1996 | | [place], [place] | [phone] | | | | | [address] | | | | | | [phone] | | | +--------+ + + + [...] [place] | | | | | | [address] | | | | | | | | +--------+---------+ + + + documented as of this encounter Visit Diagnoses + + | Diagnosis | + + | Respiratory malfunction arising from mental factors | + + documented in this encounter"
--- OUTSIDE RECORDS SUMMARY | ~2019-11-25 | XMS | Encounter Summary ---
Demographics + + + | Address | [address] | | | [place] [address] | + + + | Home Phone | | + + + | Preferred Language | Unknown | + + + | Marital Status | Unmarried Domestic Partner | + + + | Rastafari Affiliation | NON | + + + | Race | White | + + + | Ethnic Group | Not or | + + + Author + + + | Author | [facility] | + + + | Organization | [facility] | + + + | Address | Unknown | + + + | Phone | Unavailable | + + + Support + + + + + | Name | Relationship | Address | Phone | + + + + + | Gabriel Greenberg | ECON | [address] | | | | | [place] | | | | | [address] | | + + + + + Care Team Providers + +------+ + | Care Placement Specialist Name | Role | Phone | + +------+ + | Caio Ibarra MD | PCP | | + +------+ + Reason for Visit +--------+ + | Reason | Comments | +--------+ + | HIV | | +--------+ + Office Visit - E/M Services (Routine) +--------+--------+ + + + + | Status | Reason | Specialty | Diagnoses / | Referred By | Referred To | | | | | Procedures | Contact | Contact | +--------+--------+ + + + + | Closed | | Internal | | [facility] | [facility] | | | | Medicine | | Faculty Ppv | [address] | | | | | | [address] | [address] | | | | | | Pavilion | Loop | | | | | | Loop | Physician's | | | | | | Physician's | Pavilion, 3rd | | | | | | Pavilion, | floor | | | | | | 3rd floor | [place], [place] | | | | | | [place], [place] | [address] | | | | | | [address] | Phone: | | | | | | Phone: | [phone] | | | | | | [phone] | Fax: | | | | | | Fax: | [phone] | | | | | | [phone] | | +--------+--------+ + + + + Encounter Details +--------+---------+ + + + | Date | Type | Department | Care Team | Description | +--------+---------+ + + + | 02/06/ | Office | [facility] Primary Care | Fred | Hepatitis B virus | | 2015 | Visit | at [facility] | MD Caio | infection, | | | | [address] | [address] | unspecified | | | | Loop Physician's | [facility] Walsh [facility], | chronicity (Primary | | | | Pavilion, 3rd floor | [place] [address] | Dx); HIV (human | | | | [place], [place] | [phone] | immunodeficiency | | | | [address] | | virus infection) | | | | [phone] | | (HCC); Convulsions, | | | | | | unspecified | | | | | | convulsion type | | | | | | (HCC); Need for | | | | | | pneumococcal | | | | | | vaccination; Bipolar | | | | | | affective disorder, | | | | | | remission status | | | | | | unspecified (HCC); | | | | | | Essential | | | | | | hypertension; | | | | | | Chronic hepatitis C | | | | | | without hepatic coma | | | | | | (HCC) | +--------+---------+ + + + Social History [...] + + + | Blood Pressure | 172/90 | 02/07/2016 12:58 PM | | | | | PDT | | + + + + + | Pulse | 72 | 02/07/2016 12:58 PM | | | | | PDT | | + + + + + | Temperature | 36.9 C (98.4 F) | 02/07/2016 12:58 PM | | | | | PDT | | + + + + + | Respiratory Rate | - | - | | + + + + + | Oxygen Saturation | - | - | | + + + + + | Inhaled Oxygen | - | - | | | Concentration | | | | + + + + + | Weight | 73.4 kg (161 lb 14.4 | 02/07/2016 12:58 PM | | | | oz) | PDT | | + + + + + | Height | 167.6 cm (5' 6") | 02/07/2016 12:58 PM | | | | | PDT | | + + + + + | Body Mass Index | 26.13 | 02/07/2016 12:58 PM | | | | | PDT | | + + + + + documented in this encounter Patient Instructions Patient Instructions Caio Ibarra MD - 02/07/2016 2:30 PM CHRISTIANAHi Rylan Huerta meeting you Restart you blood pressure medication Look for a primary care provider closer to you in [facility] Please get labs done today Hold on restarting your HIV medications. See in 4 weeks. documented in this encounter Progress Notes James Bledsoe, JoiD - 02/07/2016 2:51 PM PDTMet briefly with "Bradley" during his visit andrea h Dr. Ibarra. He brought his medications to the visit with him today. Most recent refill of any medication was 28 Feb 2015; others had last refill before Feb. He reports he has been off of his antiretrovirals for approx 1 year. He looked at the antiretroviral pill chart and noted that he has been on "just about" every thing on it. Bradley reports he stopped antiretrovirals and his Hep C treatment when he was told by his pr evious clinic that he could no longer be seen there due to insurance changes. He reports he is engaged with the [facility] ([facility]) for case management assistance and was in contact with them this morning. Pharmacies used: [facility] ([facility], ) and [facility] ([facility], ). Medications Bradley has with him today: --Truvada (emtricitabine / tenofovir DF) - last fill 14 Feb 2015; not currently taking --Epzicom (lamivudine / abacavir) - last fill 28 Jan 2015; not currently taking --Dolutegravir - last fill 22 Feb 2015; not currently taking --Harvoni (ledipasvir / sofosbuvir) - 24 Jan 2015, this appears to be his final refill, 10 tablets remain in the bottle; not currently taking --Divaloproex 250 mg - taking half tablet (125 mg) every 4 hours due to headache with 250 m g dose; he confirms he is currently taking this --Telmisartan 80 mg - qday; not currently taking --Pregabalin 150 mg x 2 twice daily; not currently taking --Duloxetine 30 mg qday - not currently taking --Trazodone 100 mg x 1.5 tabs qHS - not currently taking --Diphenoxylate/atropoine 1 - 2 tabs 4x daily prn; not currently taking --Sumatriptan 100 mg - prn migraine; not currently taking, last refill October 2014 Agree with plan to check HIV resistance studies (RT, DC, and InSTI) and Hep C viral load as well as attempt to obtain previous records. I asked Bradley to please schedule with me for an extended appt prior to his appt with Dr. Karen hernandez in 4 weeks, on the same day. -James Bledsoe PharmD Caio Butcher MD - 02/07/2016 1:38 PM PDT Internal Medicine Clinic/HIV Clinic Ivan is a 50 y.o. HIV infected male who presents to [facility] care. Ivan reports he was first diagnosed with HIV-infection in 1981. He was started on HIV medications, with mon o-therapy AZT, later multiple other HIV regimen. His last 2 regimens he thinks are last 2 r egimen was Truvada and Epzicom?. 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 He denies any issues with recurrent herpes simplex disease, recurrent pneumonias, recurr ent skin infections, or herpes zoste Ivan states he is confused about his medications and brings a bag with the medications h e should be taking. He states he has not taken anything for a while. He states he was seeing a provider closer to where he was living but was told that they wou ld not see him any more. He states he is also at weeks 11 of Hepatitis C treatment with Harv sammy. Medications (Brought in a Bag) Depakote Tivicay - Harvoni - Truvada Epzicom Telmistartsn. 80mg daily Trazodone 50 mg Lyrica 150 mg Lomotil Douloxetine 30 mg Sumitriptan 100 mg for migranes. His non-HIV issues include the following Hypertension Hepatitis C - on week 11 of treatment Chronic Diarrhea Depression - Bipolar . 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 He doesn't drive. He has MRI of the brain with no findings. Chronic Diarrhea : He remain on lomotil. He had a colonoscopy in the past needed 2 1/2 yea rs with the removal of a 5 mm polyp Chronic Back pain - 2 disks with herniations, lower back., s/p an MRI. Now he feels that he is falling. No outpatient prescriptions have been marked as taking for the 02/07/16 encounter (Office Vi sit) with Caio Ibarra MD. Allergies: Review of patient's allergies indicates no known allergies. 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 or hepatic coma Neuropathy detron neuropathy of bilateral LEs Social History Social History Marital Status: Unmarried Domestic Partner Spouse Name: N/A Number of Children: N/A Years of Education: N/A Social History Main Topics Smoking status: Never Smoker Smokeless tobacco: Not on file Alcohol Use: No Drug Use: Yes Comment: + remote history of amphetamine and heroin use Sexual Activity: Partners: Male Other Topics Concern Not on file Social History Narrative + has one child Family History Problem Relation Cancer Father Additional Family History Mother brain aneursym Additional Family History Sister substance abuse Physical Examination: BP 172/90 | Pulse 72 | Temp 36.9 C (98.4 F) | Ht 1.676 m (5' 6") | Wt 73.437 kg (161 lb 14.4 oz) | BMI 26.14 kg/(m^2) ( off hypertension medication) General: Well-nourished euthymic appearing male, alert and oriented X 3. Anxious appearing . Lymph Nodes: No significant cervical adenopathy appreciated. Oropharynx: No evidence of exudates. Mucous membranes are moist. Dentition appears good . Back: No CVA or spinal tenderness. Lungs: Clear to auscultation bilaterally. Normal respiratory effort. Cardiac: Regular rhythm, normal rate. Normal S1, S2, no murmur, gallop. Abdomen: Soft, nontender. No hepatosplenomegaly or masses. Neurologic: Alert and oriented x 3. Impression and Plan There are no medical records and will need to have better coordination of care from his pre vious provider to better help Bradley with his [facility] medical care. 1. HIV (human immunodeficiency virus infection) (HCC) - Ivan multiple medication bottles and confusion about his medications, puts him at risk for further complicating his HIV therapy. For now, will need to get restaging with resistan t testing by [facility]. Will hold on restarting his HIV medications for now. We dicussed that de pending on his new regimen, it is very important t totake 100% of the prescribed antiretrovi ral doses to avoid developing resistance and to obtain maximum benefit from medications. - CBC, WITH DIFFERENTIAL; Future - CD4; Future - COMPLETE METABOLIC SET; Future - RPR SERUM; Future - VITAMIN D, 25-HYDROXY, SERUM; Future - HIV-1 GENOTYPE WITH VIRAL LOAD; Future - LAB OTHER: HIV integrase resistance testing; Future - 2. Hepatitis Band C virus infection, unspecified chronicity - It is unclear chronicity - HEPATITIS B SURFACE AB; Future - HEPATITIS B SURFACE AG; Future - HEPATITIS B BY PCR; Future - To continue with Harvoni for 12 weeks total and recheck SVR at 6 monhts - To vaccinate if Hepatitis A non-immune. 3. Convulsions, unspecified convulsion type (HCC) -Will need additonal medical records, but will defer to his PCP for additional management a nd followup with neurology. - VALPROIC ACID, PLASMA; Future 4. Bipolar affective disorder, remission status unspecified (HCC) He remain on Depakote - it is unclear about his underlying medical diagnosis. - Encouraged to find a mental health specialist closer to his home in [facility] 5. Essential hypertension -uncontrolled, but has been off of his medications - urged to restart his ARB - To follow at next visit. - STAFF TO GIVE: PREVNAR 13-VALENT I asked patient during visit to return to clinic in 4 weeks for routine follow up, sooner if acute issue arises. I spent 55 minutes clqn-uw-dpys with the patient of which greater than 50% was spent couns eling the patient regarding the above issues. Caio Ibarra MD Ashish John MA - 02/07/2016 1:02 PM PDT Patient is here today to address Chief Complaint Patient presents with HIV Vitals BP 172/90 | Pulse 72 | Temp 36.9 C (98.4 F) | Ht 1.676 m (5' 6") | Wt 73.437 kg (161 lb 14.4 oz) | BMI 26.14 kg/(m^2) Patient reports a pain level of 08 - Very Severe today. History Smoking status Never Smoker Smokeless tobacco Not on file No Known Allergies Medications reconciled with patient? No. Health Maintenance Health Maintenance Due Topic Date Due INFLUENZA VACCINE (FLU SHOT) 01/16/2016 CHOLESTEROL SCREENING 02/07/2016 Shared Decision Making: Not completed at this visit SBIRT: Not due documented in this e ncounter Plan of Treatment Not on filedocumented as of this encounter Results UA, DIPSTICK ONLY (02/07/2016 3:07 PM PDT) + + + + + + | Component | Value | Ref Range | Performed | Pathologist | | | | | At | Signature | + + + + + + | COLOR(UR) | Yellow | | [facility] | | | | | | LABORATORY | | | | | | SERVICES, | | | | | | CORE | | + + + + + + | APPEARANCE | Sl.Cloudy | | [facility] | | | | | | LABORATORY | | | | | | SERVICES, | | | | | | CORE | | + + + + + + | GLUCOSE(UR) | Negative | Negative, 50.0 | [facility] | | | | | mg/dL | LABORATORY | | | | | | SERVICES, | | | | | | CORE | | + + + + + + | PROTEIN(LAB | Negative | Negative, 30.0 | [facility] | | | ) | | mg/dL | LABORATORY | | | | | | SERVICES, | | | | | | CORE | | + + + + + + | BILIRUBIN | Negative | Negative | [facility] | | | | | | LABORATORY | | | | | | SERVICES, | | | | | | CORE | | + + + + + + | UROBILINOGE | <2.0 | <2.0 mg/dL | [facility] | | | N | | | LABORATORY | | | | | | SERVICES, | | | | | | CORE | | + + + + + + | PH(UR) | 7.0 | 5.0 - 8.0 | [facility] | | | | | | LABORATORY | | | | | | SERVICES, | | | | | | CORE | | + + + + + + | BLOOD | Negative | Negative | [facility] | | | | | | LABORATORY | | | | | | SERVICES, | | | | | | CORE | | + + + + + + | KETONES | Negative | Negative mg/dL | [facility] | | | | | | LABORATORY | | | | | | SERVICES, | | | | | | CORE | | + + + + + + | NITRITES | Negative | Negative | [facility] | | | | | | LABORATORY | | | | | | SERVICES, | | | | | | CORE | | + + + + + + | LEUKOCYTE | Negative | Negative | [facility] | | | ESTERASE | | | LABORATORY | | | | | | SERVICES, | | | | | | CORE | | + + + + + + | SPECIFIC | 1.014 | 1.005 - 1.030 | [facility] | | | GRAVITY | | | LABORATORY | | | | | | SERVICES, | | | | | | CORE | | + + + + + + + + | Specimen | + + | Urine - Urine | | (substance) | + + + + + + + | Performing | Address | City/State/Zipcode | Phone Number | | Organization | | | | + + + + + | [facility] | [address] | [place] [address] | | | SERVICES, CORE | [address] | | | + + + + + HEPATITIS C AB W/CONFIRMATION REFLEX PCR (02/07/2016 3:07 PM PDT) + + + + + + | Component | Value | Ref Range | Performed | Pathologist | | | | | At | Signature | + + + + + + | HEPATITIS C | Positive (A) | Negative | [facility] - | | | AB | | | [facility] - | | | | | | [place] | | + + + + + + + + | Specimen | + + | Blood - Blood | + + + + + + + | Performing | Address | City/State/Zipcode | Phone Number | | Organization | | | | + + + + + | [facility] | [address] | [place] [address] | | | [place] | | | | + + + + + HEPATITIS B BY PCR (02/07/2016 3:07 PM PDT) + + + + + + | Component | Value | Ref Range | Performed | Pathologist | | | | | At | Signature | + + + + + + | HEP B DNA | Undetected | Undetected, | [facility] | | | QUANT IU | | Undetected - | DIAGNOSTIC | | | | | See Below IU/mL | | | | | | | LABORATORIE | | | | | | S | | + + + + + + + + | Specimen | + + | Blood - Blood | | (substance) | + + + + + | Narrative | Performed At | + + + | Reportable Range: 10-1,000,000,000 IU/mL These results are | [facility] | | most likely suggestive of either the absence of HBV viremia or the | DIAGNOSTIC | | presence of low-level HBV viremia at or below the assays lower | LABORATORIES | | sensitivity limit of 10 IU/mL. High or serially rising HBV viral | | | loads are a poor prognostic indicator for antiviral therapy efficacy | | | and predict a more rapid HBV disease progression. Viral load changes | | | of less than approximately 3 fold may not be biologically significant | | | and must be interpreted cautiously. | | + + + + + + + + | Performing | Address | City/State/Zipcode | Phone Number | | Organization | | | | + + + + + | [facility] | [address] | [place] [address] | | | DIAGNOSTIC | [address] | | | | LABORATORIES | | | | + + + + + HEPATITIS B SURFACE AG, SERUM (02/07/2016 3:07 PM PDT) + + + + + + | Component | Value | Ref Range | Performed | Pathologist | | | | | At | Signature | + + + + + + | HEPATITIS B | Negative | Negative | [facility] - | | | SURFACE | | | [facility] - | | | AG, SERUM | | | [place] | | + + + + + + + + | Specimen | + + | Blood - Blood | + + + + + + + | Performing | Address | City/State/Zipcode | Phone Number | | Organization | | | | + + + + + | [facility] | [address] | [place] [address] | | | [place] | | | | + + + + + HEPATITIS B SURFACE AB QUAL, SERUM (02/07/2016 3:07 PM PDT) + + + + + + | Component | Value | Ref Range | Performed | Pathologist | | | | | At | Signature | + + + + + + | HEP B | Non Reactive | Non Reactive | [facility] - | | | SURFACE AB | | | [facility] - | | | QUAL, SERUM | | | [place] | | + + + + + + + + | Specimen | + + | Blood - Blood | + + + + + + + | Performing | Address | City/State/Zipcode | Phone Number | | Organization | | | | + + + + + | [facility] | [address] | [place] [address] | | | [place] | | | | + + + + + LAB OTHER (02/07/2016 3:07 PM PDT) + + + + + + | Component | Value | Ref Range | Performed | Pathologist | | | | | At | Signature | + + + + + + | MISC REF | HIV Integrase, EDTA | | [facility] | | | TEST NAME | Plasma | | LABORATORY | | | | | | SERVICES, | | | | | | CORE | | + + + + + + | MISC REF | | | [facility] | | | TEST RESULT | | | REFERENCE | | | | | | LAB | | + + + + + + | NORMAL | | | [facility] | | | RANGE | | | REFERENCE | | | | | | LAB | | + + + + + + | REFERRAL | Test performed | | [facility] | | | LAB NAME | by:[facility] | | REFERENCE | | | | [address] | | LAB | | | | [place], [place] | | | | | | [address] | | | | + + + + + + + + | Specimen | + + | | + + + + + | Narrative | Performed At | + + + | See scanned | [facility] | | report for Technical Results and further Interpretation and Comments. | REFERENCE LAB | | [facility] called for viral load from same date of collection, reported to | | | them but [facility] (performing lab) did not have the information, an | | | amended report will be issued by [facility]. | | | | | + + + + + + + + | Performing | Address | City/State/Zipcode | Phone Number | | Organization | | | | + + + + + | [facility] | | | | + + + + + | [facility] | [address] | [place] [address] | | | RADHA, ARELIS | [address] | | | + + + + + | [facility] | see below | | | + + + + + HIV-1 GENOTYPE WITH VIRAL LOAD (02/07/2016 3:07 PM PDT) + + + + + + | Component | Value | Ref Range | Performed | Pathologist | | | | | At | Signature | + + + + + + | HIV-QNT PCR | [id number] (A)Comment: Result | Undetected | [facility] | | | | in log copies/mL is | copies/mL | MEDICAL | | | | 4.76. | | [facility] | | | | ADD | | | | | | ITIONAL | | | | | | INFORMATION | | | | | | ------ The | | | | | | quantification range of | | | | | | this assay is 20 to | | | | | | 10,000,000 copies/mL | | | | | | (1.30 log copies/mL to | | | | | | 7.00 log copies/mL). | | | | | | Testing was performed | | | | | | by the YASH | | | | | | AmpliPrep/YASH TaqMan | | | | | | HIV-1 Test version 2.0 | | | | | | ([employer] | | | | | | [employer] Test | | | | | | Performed by: [place] | | | | | | [facility] - | | | | | | [facility] | | | | | | [address], | | | | | | [place] [address] | | | | | | Used Car Salesperson: | | | | | | Clemente Roque II, | | | | | | Lu, Ph.D. | | | | + + + + + + + + | Specimen | + + | Blood - Blood | + + + + + | Narrative | Performed At | + + + | HIV-1 Genotype will be reflexed if viral load > or = 500. | [facility] | | | [facility] | + + + + + + + + | Performing | Address | City/State/Zipcode | Phone Number | | Organization | | | | + + + + + | [facility] | [address] | [place], [place] | | | [facility] | [place] | [address] | | + + + + + VITAMIN D, 25-HYDROXY, SERUM (02/07/2016 3:07 PM PDT) + + + + + + | Component | Value | Ref Range | Performed | Pathologist | | | | | At | Signature | + + + + + + | VITAMIN D | 25.9 (L) | 30 - 80 ng/mL | [facility] | | | 25 HYDROXY | | | LABORATORY | | | | | | SERVICES, | | | | | | CORE | | + + + + + + + + | Specimen | + + | Blood - Blood | | (substance) | + + + + + | Narrative | Performed At | + + + | Reference Interval: 0-18years: Deficiency: <20 ng/mL | [facility] | | Optimum level: >or=20 ng/mL | LABORATORY | | >18years: Deficiency: <20 | SERVICES, CORE | | ng/mL Insufficiency: 20-29 ng/mL | | | Optimum Level: 30-80 ng/mL High: | | | 81-150 ng/ml Toxic: >150 ng/mL | | + + + + + + + + | Performing | Address | City/State/Zipcode | Phone Number | | Organization | | | | + + + + + | [facility] | [address] | [place] [address] | | | SERVICES, CORE | [address] | | | + + + + + RPR SERUM (02/07/2016 3:07 PM PDT) + + + + + + | Component | Value | Ref Range | Performed | Pathologist | | | | | At | Signature | + + + + + + | RPR SRM | Non ReactiveComment: | Non Reactive | [facility] | | | QUAL | Rapid Plasma Reagin | | REG UNIV | | | | screening test is | | PTH - [facility] | | | | Non-Reactive. No further | | | | | | reflex testing is | | | | | | required.Performed by | | | | | | [address] | | | | | | [address], [facility],[place] | | | | | | [address] | | | | | | [phone].[facility] | | | | | | Patrice barnhart, | | | | | | Darlene TORRES. Director | | | | + + + + + + + + | Specimen | + + | Blood - Blood | + + + + + + + | Performing | Address | City/State/Zipcode | Phone Number | | Organization | | | | + + + + + | [facility] | [address] | [place], [place] | | | UNIV [facility] | | [address] | | + + + + + COMPLETE METABOLIC SET (NA,K,CL,CO2,BUN,CREAT,GLUC,CA,AST,ALT,BILI TOTAL,ALK PHOS,ALB,PROT TOTAL) (02/07/2016 3:07 PM PDT) + +---------+ + + + | Component | Value | Ref Range | Performed | Pathologist | | | | | At | Signature | + +---------+ + + + | GLUCOSE, | 99 | 60 - 99 mg/dL | [facility] | | | PLASMA | | | LABORATORY | | | (LAB) | | | SERVICES, | | | | | | CORE | | + +---------+ + + + | BUN, PLASMA | 12 | 6 - 20 mg/dL | [facility] | | | (LAB) | | | LABORATORY | | | | | | SERVICES, | | | | | | CORE | | + +---------+ + + + | CREATININE | 0.78 | 0.70 - 1.30 | [facility] | | | PLASMA | | mg/dL | LABORATORY | | | (LAB) | | | SERVICES, | | | | | | CORE | | + +---------+ + + + | EGFR | >60 | >60 mL/min | [facility] | | | - | | | LABORATORY | | | BERMUDIAN | | | SERVICES, | | | | | | CORE | | + +---------+ + + + | EGFR NON | >60 | >60 mL/min | [facility] | | | -HARIS | | | LABORATORY | | | RICAN | | | SERVICES, | | | | | | CORE | | + +---------+ + + + | SODIUM, | 140 | 136 - 145 | [facility] | | | PLASMA | | mmol/L | LABORATORY | | | (LAB) | | | SERVICES, | | | | | | CORE | | + +---------+ + + + | POTASSIUM, | 3.7 | 3.4 - 5.0 | [facility] | | | PLASMA | | mmol/L | LABORATORY | | | (LAB) | | | SERVICES, | | | | | | CORE | | + +---------+ + + + | CHLORIDE, | 104 | 97 - 108 mmol/L | [facility] | | | PLASMA | | | LABORATORY | | | (LAB) | | | SERVICES, | | | | | | CORE | | + +---------+ + + + | TOTAL CO2, | 31 | 21 - 32 mmol/L | [facility] | | | PLASMA | | | LABORATORY | | | (LAB) | | | SERVICES, | | | | | | CORE | | + +---------+ + + + | CALCIUM, | 9.5 | 8.6 - 10.2 | [facility] | | | PLASMA | | mg/dL | LABORATORY | | | (LAB) | | | SERVICES, | | | | | | CORE | | + +---------+ + + + | CALCIUM(ALB | 9.3 | 8.6 - 10.2 | [facility] | | | CORRECTED) | | mg/dL | LABORATORY | | | | | | SERVICES, | | | | | | CORE | | + +---------+ + + + | BILIRUBIN | 0.6 | 0.3 - 1.2 mg/dL | [facility] | | | TOTAL | | | LABORATORY | | | | | | SERVICES, | | | | | | CORE | | + +---------+ + + + | TOTAL | 8.4 (H) | 6.4 - 8.2 g/dL | [facility] | | | PROTEIN, | | | LABORATORY | | | PLASMA | | | SERVICES, | | | (LAB) | | | CORE | | + +---------+ + + + | ALBUMIN, | 4.2 | 3.5 - 4.7 g/dL | [facility] | | | PLASMA | | | LABORATORY | | | (LAB) | | | SERVICES, | | | | | | CORE | | + +---------+ + + + | ALK PHOS | 74 | 53 - 128 U/L | [facility] | | | | | | LABORATORY | | | | | | SERVICES, | | | | | | CORE | | + +---------+ + + + | AST(SGOT) | 21 | <=41 U/L | [facility] | | | | | | LABORATORY | | | | | | SERVICES, | | | | | | CORE | | + +---------+ + + + | ALT (SGPT) | 20 | <=60 U/L | [facility] | | | | | | LABORATORY | | | | | | SERVICES, | | | | | | CORE | | + +---------+ + + + | ANION GAP | 5 | mmol/L | [facility] | | | | | | LABORATORY | | | | | | SERVICES, | | | | | | CORE | | + +---------+ + + + | ANION | 4 | 4 - 11 mmol/L | [facility] | | | GAP(ALB | | | LABORATORY | | | CORRECTED) | | | SERVICES, | | | | | | CORE | | + +---------+ + + + | POTASSIUM | No Hemo | | [facility] | | | CMNT | | | LABORATORY | | | | | | SERVICES, | | | | | | CORE | | + +---------+ + + + | BILI T CMNT | No Hemo | | [facility] | | | | | | LABORATORY | | | | | | SERVICES, | | | | | | CORE | | + +---------+ + + + | AST CMNT | No Hemo | | [facility] | | | | | | LABORATORY | | | | | | SERVICES, | | | | | | CORE | | + +---------+ + + + + + | Specimen | + + | Blood - Blood | | (substance) | + + + + + | Narrative | Performed At | + + + | GFR is estimated using the MDRD equation recommended by the | [facility] | | National Kidney Disease Education Program. Estimated GFR | LABORATORY | | Interpretive Information: <60 mL/min/1.73 sq m | SERVICES, CORE | | Chronic Kidney Disease <15 mL/min/1.73 sq m | | | Kidney Failure Estimated GFR greater that 60 mL/min/1.73 sq m is of | | | limited clinical value. The MDRD equation is not valid in the | | | following situations: - Patients under 18 years of age - Severe | | | malnutrition or obesity - Vegetarian diet - Rapidly changing kidney | | | function | | + + + + + + + + | Performing | Address | City/State/Zipcode | Phone Number | | Organization | | | | + + + + + | [facility] | [address] | [place] [id number] | | | SERVICES, CORE | [address] | | | + + + + + CD4 (T CELL), BLOOD (02/07/2016 3:07 PM PDT) + + + + + + | Component | Value | Ref Range | Performed | Pathologist | | | | | At | Signature | + + + + + + | CD4 % (T | 28.3 (L) | 34.0 - 61.0 % | [facility] | | | HELPER | | | LABORATORY | | | CELLS) | | | SERVICES, | | | | | | SPECIAL IMM | | | | | | + COAG | | + + + + + + | CD4 (T | 382 | 300 - 1,400 /cu | [facility] | | | HELPER | | mm | LABORATORY | | | CELLS) | | | SERVICES, | | | | | | SPECIAL IMM | | | | | | + COAG | | + + + + + + + + | Specimen | + + | Blood - Blood | | (substance) | + + + + + | Narrative | Performed At | + + + | (Analyte specific reagents are used in many laboratory tests | [facility] | | necessary for standard medical care. This test was developed and its | LABORATORY | | performance characteristics determined by [facility] [employer] It has | SERVICES, | | not been cleared or approved by the US Food and Drug Administration | SPECIAL IMM + | | (FDA). FDA does not require this test to go through premarket FDA | [place] | | review. This test is used for clinical purposes. It should not be | | | regarded as investigational or for research. The laboratory is | | | certified under the Clinical Laboratory Improvement Amendments (CLIA) | | | as qualified to perform high complexity clinical laboratory testing.) | | + + + + + + + + | Performing | Address | City/State/Zipcode | Phone Number | | Organization | | | | + + + + + | [facility] | [address] | [place] [address] | | | SERVICES, SPECIAL | [address] | | | | IMM + [place] | | | | + + + + + VALPROIC ACID, PLASMA (02/07/2016 3:07 PM PDT) + + + + + + | Component | Value | Ref Range | Performed | Pathologist | | | | | At | Signature | + + + + + + | VALPROIC | <3.0 (L) | 50.0 - 100.0 | [facility] | | | ACID | | ug/mL | LABORATORY | | | | | | SERVICES, | | | | | | CORE | | + + + + + + + + | Specimen | + + | Blood - Blood | | (substance) | + + + + + + + | Performing | Address | City/State/Zipcode | Phone Number | | Organization | | | | + + + + + | [facility] | [address] | [place] [address] | | | SERVICES, CORE | [address] | | | + + + + + documented in this encounter Visit Diagnoses + + | Diagnosis | + + | Hepatitis B virus infection, unspecified chronicity - Primary | + + | HIV (human immunodeficiency virus infection) (HCC) Asymptomatic human | | immunodeficiency virus (HIV) infection status | + + | Convulsions, unspecified convulsion type (HCC) | + + | Need for pneumococcal vaccination Need for prophylactic vaccination against | | streptococcus pneumoniae (pneumococcus) | + + | Bipolar affective disorder, remission status unspecified (HCC) | + + | Essential hypertension | + + | Chronic hepatitis C without hepatic coma (HCC) | + + documented in this encounter
--- OUTSIDE RECORDS SUMMARY | ~2019-11-25 | XMS | Encounter Summary ---
Demographics + + + | Address | [address] | | | [place] [address] | + + + | Home Phone | | + + + | Preferred Language | Unknown | + + + | Marital Status | | + + + | Amish Affiliation | 1013 | + + + | Race | Unknown | + + + | Ethnic Group | Unknown | + + + Author + + + | Author | [facility] | | | and [place] | + + + | Organization | [facility] | | | and [...] [place] | | | | | [address] | | + + + + + Care Team Providers + +------+ + | Care Cord Cutter Name | Role | Phone | + +------+ + PCP | Unavailable | + +------+ + Encounter Details +--------+ + + + + | Date | Type | Department | Care Team | Description | +--------+ + + + + | 07/26/ | Emergency | [facility] | Arcelia Srinivasan, | Cough | | 2010 - | | [facility] | MD [address] | | | | | EMERGENCY CENTER | [place], [place] | | | 07/27/ | | [address] [facility] | [address] | | | 2010 | | [place], [place] | | | | | | [address] | | | | | | [phone] | | | +--------+ + + + [...] [place] | | | | | | [address] | | | | | | | | +--------+---------+ + + + documented as of this encounter Procedures + +--------+ + + + | Procedure Name | Priori | Date/Time | Associated Diagnosis | Comments | | | ty | | | | + +--------+ + + + | XR CHEST 2 VIEWS | Routin | 07/26/2010 | | Results for this | | | e | 11:43 PM | | procedure are in the | | | | PST | | results section. | + +--------+ + + + documented in this encounter Results XR Chest 2 Vws (07/26/2010 11:43 PM PST) + + | Specimen | + + | | + + + + + | Narrative | Performed At | + + + | [facility] [address] Ph: | | | Patient Name: MICHAEL CHAVEZ Nigel Date of : | | | 1965 Medical Record: [id number] Account: [id number] | | | Exam Date/Time: 07/26/2010 23:26 Ordering | | | Physician: ARCELIA SRINIVASAN Order Detail: [id number] Exam Description: | | | XR CHEST 2 VIEW | | | | | | MICHAEL CHAVEZ XR CHEST 2 VIEW 07/26/2010 11:26 PM HISTORY: 44 | | | years. Male. Cough with blood-tinged sputum.. TECHNIQUE: Dual | | | energy frontal and a lateral chest radiograph. COMPARISON: Chest | | | films dating from August 16 until September 21. FINDINGS: The lungs | | | are clear and well inflated. The cardiac silhouette and pulmonary | | | vasculature are normal. No pneumothorax or pleural effusion is found. | | | No bony abnormality is found. . Cholecystectomy clips are again | | | found. IMPRESSION: 1. No acute disease. Electronically | | | signed by Jax Pickens MD on 07/27/2010 7:48 AM | | + + + + + | Procedure Note | + + | [place] Conversion - 01/07/2019 12:34 PM PDT | | [facility] | | [place] [id number] | | | | | | Patient Name: MICHAEL CHAVEZ | | Date of : 1965 | | Medical Record: [id number] | | Account: [id number] | | | | | | Exam Date/Time: 07/26/2010 23:26 | | Ordering Physician: ARCELIA SRINIVASAN | | Order Detail: [id number] | | Exam Description: XR CHEST 2 VIEW | | | | MICHAEL CHAVEZ | | XR CHEST 2 VIEW | | 07/26/2010 11:26 PM | | | | HISTORY: | | 44 years. Male. Cough with blood-tinged sputum.. | | | | TECHNIQUE: | | Dual energy frontal and a lateral chest radiograph. | | | | COMPARISON: | | Chest films dating from August 16 until September 21. | | | | FINDINGS: | | The lungs are clear and well inflated. The cardiac silhouette and pulmonary | | vasculature are normal. No pneumothorax or pleural effusion is found. No | | bony abnormality is found. . Cholecystectomy clips are again found. | | | | IMPRESSION: | | 1. No acute disease. | | | | | + + documented in this encounter Visit Diagnoses + + | Diagnosis | + + | Cough | + + documented in this encounter"
--- OUTSIDE RECORDS SUMMARY | ~2019-11-25 | XMS | Encounter Summary ---
Demographics + + + | Address | [address] | | | [place] [address] | + + + | Home Phone | | + + + | Preferred Language | Unknown | + + + | Marital Status | | + + + | Hinduism Affiliation | 1013 | + + + | Race | Unknown | + + + | Ethnic Group | Unknown | + + + Author + + + | Author | [facility] | | | and [place] | + + + | Organization | [facility] | | [...] [place] | | | | | [address] | | + + + + + Care Team Providers + +------+ + | Care Qa Specialist Name | Role | Phone | + +------+ + | Jax Cabrera MD | PCP | | + +------+ + Reason for Referral Diagnostic/Screening (Routine) +--------+--------+ + + + + | Status | Reason | Specialty | Diagnoses / | Referred By | Referred To | | | | | Procedures | Contact | Contact | +--------+--------+ + + + + | Closed | | Radiology | Diagnoses | [place], | [facility] | | | | | VSD | Owen | [address] | | | | | (ventricular | MD Andrea | [place], | | | | | septal | [address] | [place] | | | | | defect) | [place] | [address] | | | | | Procedures | [place], [place] | Phone: | | | | | ECHO | [address] | [phone] | | | | | Complete [place] | Phone: | Fax: | | | | | ECHO HE[facility] | [phone] | [phone] | | | | | [place] | Fax: | | | | | | [address] | [phone] | | | | | | [place]OPPLER [place] | | | | | | | ECHO HEART | | | | | | | [place] | | | | | | | MPLETE, W/O | | | | | | | DOPPLER | | | +--------+--------+ + + + + Encounter Details +--------+ + + + + | Date | Type | Department | Care Team | Description | +--------+ + + + + | 01/29/ | Orders Only | [facility] [place] | [facility] | VSD (ventricular | | 2017 | | CARDIOLOGY [address] | MD Andrea [address] | septal defect) | | | | [address] [place], | [address] [place] | (Primary Dx); Mixed | | | | [place] [address] | [place] [address] | hyperlipidemia | | | | [phone] | [phone] | | | | | | | | +--------+ + + + [...] [place] | | | | | | [address] | | | | | | | | +--------+---------+ + + + + + +--------+ + + | Name | Type | Priori | Associated Diagnoses | Order Schedule | | | | ty | | | + + +--------+ + + | ECHO Complete | Echocardiog | Routin | VSD (ventricular | Expected: | | | bhavya | e | septal defect) | 03/17/2017, Expires: | | | | | | 01/29/2018 | + + +--------+ + + | Lipid Panel | Lab | Routin | Mixed | Expected: | | | | e | hyperlipidemia | 01/29/2017, Expires: | | | | | | 01/29/2018 | + + +--------+ + + | Comprehensive | Lab | Routin | VSD (ventricular | Expected: | | Metabolic Panel | | e | septal defect) | 01/29/2017, Expires: | | | | | Mixed hyperlipidemia | 01/29/2018 | + + +--------+ + + documented as of this encounter Visit Diagnoses + + | Diagnosis | + + | VSD (ventricular septal defect) - Primary Ventricular septal defect | + + | Mixed hyperlipidemia | + + documented in this encounter"
--- OUTSIDE RECORDS SUMMARY | ~2019-11-25 | XMS | Encounter Summary ---
Demographics + + + | Address | [address] | | | [place] [address] | + + + | Home Phone | | + + + | Preferred Language | Unknown | + + + | Marital Status | | + + + | Anabaptist Affiliation | 1013 | + + + | Race | Unknown | + + + | Ethnic Group | Unknown | + + + Author + + + | Author | [facility] | | | and [place] | + + + | Organization | [facility] | | | and [place] | + [...] [place] | | | | | [address] | | + + + + + Care Team Providers + +------+ + | Care Home Teaching Grades 7 And 8 Teacher Name | Role | Phone | + +------+ + PCP | Unavailable | + +------+ + Encounter Details +--------+ + + + + | Date | Type | Department | Care Team | Description | +--------+ + + + + | 12/20/ | Hospital | [facility] | Alexis Gonzales MD | Calculus of kidney | | 2009 | Encounter | [facility] | [address] | | | | | CLINICAL DECISION | [place], [place] | | | | | [address] | [address] | | | | | [place], [place] | | | | | | [address] | | | | | | [phone] | | | +--------+ + + + [...] [place] | | | | | | [phone] | | | | | | | | +--------+---------+ + + + documented as of this encounter Visit Diagnoses + + | Diagnosis | + + | Calculus of kidney | + + documented in this encounter"
--- OUTSIDE RECORDS SUMMARY | ~2019-11-25 | XMS | Encounter Summary ---
Demographics + + + | Address | [address] | | | [place] [address] | + + + | Home Phone | | + + + | Preferred Language | Unknown | + + + | Marital Status | Unmarried Domestic Partner | + + + | Protestant Affiliation | NON | + + + | Race | White | + + + | Ethnic Group | Not or | + + + Author + + + | Author | [facility] | + + + | Organization | [facility] | + + + | Address | Unknown | + + + | Phone | Unavailable | + + + Support + + + + + | Name | Relationship | Address | Phone | + + + + + | Gabriel Greenberg | ECON | [address] | | | | | [place] | | | | | [address] | | + + + + + Care Team Providers + +------+ + | Care Masonry Contractor Name | Role | Phone | + +------+ + | Jax Cabrera MD | PCP | | + +------+ + Encounter Details +--------+------+ + + + | Date | Type | Department | Care Team | Description | +--------+------+ + + + | 08/17/ | Lab | Laboratory at [facility] | | Human | | 2017 | | [address] | | immunodeficiency | | | | [facility] | | virus (HCC) | | | | Pavilion, 3rd floor | | | | | | [place], [place] | | | | | | [address] | | | | | | [phone] | | | +--------+------+ + + + Social History + +-------+ [...] | + +--------+ + + + | CBC AND AUTO DIFF | Routin | 08/17/2016 | Human | Results for this | | | e | 4:14 PM | immunodeficiency | procedure are in the | | | | PDT | virus (HCC) | results section. | + +--------+ + + + | HIV QUANTITATIVE | Routin | 08/17/2016 | Human | Results for this | | PCR, PLASMA | e | 4:14 PM | immunodeficiency | procedure are in the | | | | PDT | virus (HCC) | results section. | + +--------+ + + + | CD4 (T CELL), BLOOD | Routin | 08/17/2016 | Human | Results for this | | | e | 4:14 PM | immunodeficiency | procedure are in the | | | | PDT | virus (HCC) | results section. | + +--------+ + + + | CBC, WITH | Routin | 08/17/2016 | Human | Results for this | | DIFFERENTIAL | e | 4:14 PM | immunodeficiency | procedure are in the | | | | PDT | virus (HCC) | results section. | + +--------+ + + + | VITAMIN D, | Routin | 08/17/2016 | Human | Results for this | | 25-HYDROXY, SERUM | e | 4:14 PM | immunodeficiency | procedure are in the | | | | PDT | virus ([facility]) | results section. | + +--------+ + + + | COMPLETE METABOLIC | Routin | 08/17/2016 | Human | Results for this | | SET | e | 4:14 PM | immunodeficiency | procedure are in the | | (NA,K,CL,CO2,BUN,CRE | | PDT | virus ([facility]) | results section. | | AT,GLUC,CA,AST,ALT,B | | | | | | TORIBIO TOTAL,ALK | | | | | | PHOS,ALB,PROT TOTAL) | | | | | + +--------+ + + + documented in this encounter Results CBC AND AUTO DIFF (08/17/2016 4:14 PM PDT) + + + + + + | Component | Value | Ref Range | Performed | Pathologist | | | | | At | Signature | + + + + + + | WHITE CELL | 4.98 | 3.50 - 10.80 | [facility] | | | COUNT | | K/cu mm | LABORATORY | | | | | | SERVICES, | | | | | | CORE | | + + + + + + | RED CELL | 5.26 | 4.50 - 6.00 | [facility] | | | COUNT | | M/cu mm | LABORATORY | | | | | | SERVICES, | | | | | | CORE | | + + + + + + | HEMOGLOBIN | 15.0 | 13.5 - 17.5 | [facility] | | | | | g/dL | LABORATORY | | | | | | SERVICES, | | | | | | CORE | | + + + + + + | HEMATOCRIT | 43.4 | 41.0 - 53.0 % | [facility] | | | | | | LABORATORY | | | | | | SERVICES, | | | | | | CORE | | + + + + + + | MCV | 82.5 | 80.0 - 96.0 fL | [facility] | | | | | | LABORATORY | | | | | | SERVICES, | | | | | | CORE | | + + + + + + | MCHC | 34.6 | 33.0 - 35.5 | [facility] | | | | | g/dL | LABORATORY | | | | | | SERVICES, | | | | | | CORE | | + + + + + + | RDW SD | 39.8 | 35.1 - 46.3 fL | [facility] | | | | | | LABORATORY | | | | | | SERVICES, | | | | | | CORE | | + + + + + + | PLATELET | 190 | 150 - 400 K/cu | [facility] | | | COUNT | | mm | LABORATORY | | | | | | SERVICES, | | | | | | CORE | | + + + + + + | MPV | 10.1 | 9.7 - 12.3 fL | [facility] | | | | | | LABORATORY | | | | | | SERVICES, | | | | | | CORE | | + + + + + + | NRBC% | 0.0 | 0.0 - 0.3 % | [facility] | | | | | | LABORATORY | | | | | | SERVICES, | | | | | | CORE | | + + + + + + | NRBC# | 0.00 | 0.00 - 0.02 | [facility] | | | | | K/cu mm | LABORATORY | | | | | | SERVICES, | | | | | | CORE | | + + + + + + | NEUTROPHIL | 41.6 (L) | 50.0 - 70.0 % | [facility] | | | % | | | LABORATORY | | | | | | SERVICES, | | | | | | CORE | | + + + + + + | LYMPHOCYTE | 46.6 (H) | 18.0 - 42.0 % | [facility] | | | % | | | LABORATORY | | | | | | SERVICES, | | | | | | CORE | | + + + + + + | MONOCYTE % | 8.8 | 3.5 - 9.0 % | [facility] | | | | | | LABORATORY | | | | | | SERVICES, | | | | | | CORE | | + + + + + + | EOS % | 2.6 | 1.0 - 3.0 % | [facility] | | | | | | LABORATORY | | | | | | SERVICES, | | | | | | CORE | | + + + + + + | BASO % | 0.2 | 0.0 - 2.0 % | [facility] | | | | | | LABORATORY | | | | | | SERVICES, | | | | | | CORE | | + + + + + + | IG% | 0.2Comment: Immature | 0.0 - 0.6 % | [facility] | | | | Granulocytes (IG) | | LABORATORY | | | | include metamyelocytes, | | SERVICES, | | | | myelocytes and | | CORE | | | | promyelocytes. Bands | | | | | | are not included in the | | | | | | IG count. Bands are | | | | | | included in the | | | | | | neutrophil count. | | | | + + + + + + | NEUTROPHIL | 2.07 | 1.80 - 7.70 | [facility] | | | # | | K/cu mm | LABORATORY | | | | | | SERVICES, | | | | | | CORE | | + + + + + + | LYMPHOCYTE | 2.32 | 1.00 - 4.80 | [facility] | | | # | | K/cu mm | LABORATORY | | | | | | SERVICES, | | | | | | CORE | | + + + + + + | MONOCYTE # | 0.44 | 0.10 - 0.90 | [facility] | | | | | K/cu mm | LABORATORY | | | | | | SERVICES, | | | | | | CORE | | + + + + + + | EOS # | 0.13 | 0.00 - 0.50 | [facility] | | | | | K/cu mm | LABORATORY | | | | | | SERVICES, | | | | | | CORE | | + + + + + + | BASO # | 0.01 | 0.00 - 0.10 | [facility] | | | | | K/cu mm | LABORATORY | | | | | | SERVICES, | | | | | | CORE | | + + + + + + | IG# | 0.01 | 0.00 - 0.03 | [facility] | | | | | K/cu mm | LABORATORY | | | | | | SERVICES, | | | | | | CORE | | + + + + + + + + | Specimen | + + | Blood - Blood | | (substance) | + + + + + | Narrative | Performed At | + + + | New adult WBC reference ranges effective April 01, 2016. | [facility] | | Immature Granulocytes (IG) include metamyelocytes, myelocytes and | LABORATORY | | promyelocytes. Bands are not included in the IG count. Bands are | SERVICES, CORE | | included in the neutrophil count. | | + + + + + + + + | Performing | Address | City/State/Zipcode | Phone Number | | Organization | | | | + + + + + | [facility] | [address] | [place] [address] | | | SERVICES, CORE | [address] | | | + + + + + VITAMIN D, 25-HYDROXY, SERUM (08/17/2016 4:14 PM PDT) + + + + + + | Component | Value | Ref Range | Performed | Pathologist | | | | | At | Signature | + + + + + + | VITAMIN D | 13.6 (L) | 30 - 80 ng/mL | [...] + | [facility] | [address] | [place] [address] | | | SERVICES, CORE | [address] | | | + + + + + COMPLETE METABOLIC SET (NA,K,CL,CO2,BUN,CREAT,GLUC,CA,AST,ALT,BILI TOTAL,ALK PHOS,ALB,PROT TOTAL) (08/17/2016 4:14 PM PDT) + +---------+ + + + | Component | Value | Ref Range | Performed | Pathologist | | | | | At | Signature | + +---------+ + + + | GLUCOSE, | 91 | 60 - 99 mg/dL | [facility] | | | PLASMA | | | LABORATORY | | | (LAB) | | | SERVICES, | | | | | | CORE | | + +---------+ + + + | BUN, PLASMA | 14 | 6 - 20 mg/dL | [facility] | | | (LAB) | | | LABORATORY | | | | | | SERVICES, | | | | | | CORE | | + +---------+ + + + | CREATININE | 0.94 | 0.70 - 1.30 | [facility] | | | PLASMA | | mg/dL | LABORATORY | | | (LAB) | | | SERVICES, | | | | | | CORE | | + +---------+ + + + | EGFR | >60 | >60 mL/min | [facility] | | | - | | | LABORATORY | | | AUSTRALIAN | | | SERVICES, | | | | | | CORE | | + +---------+ + + + | EGFR NON | >60 | >60 mL/min | [facility] | | | -HARIS | | | LABORATORY | | | RICAN | | | SERVICES, | | | | | | CORE | | + +---------+ + + + | SODIUM, | 139 | 136 - 145 | [facility] | | | PLASMA | | mmol/L | LABORATORY | | | (LAB) | | | SERVICES, | | | | | | CORE | | + +---------+ + + + | POTASSIUM, | 3.6 | 3.4 - 5.0 | [facility] | | | PLASMA | | mmol/L | LABORATORY | | | (LAB) | | | SERVICES, | | | | | | CORE | | + +---------+ + + + | CHLORIDE, | 103 | 97 - 108 mmol/L | [facility] [...] +---------+ + + + | CALCIUM, | 9.3 | 8.6 - 10.2 | [facility] | | | PLASMA | | mg/dL | LABORATORY | | | (LAB) | | | SERVICES, | | | | | | CORE | | + +---------+ + + + | CALCIUM(ALB | 9.1 | 8.6 - 10.2 | [facility] | | | CORRECTED) | | mg/dL | LABORATORY | | | | | | SERVICES, | | | | | | CORE | | + +---------+ + + + | BILIRUBIN | 0.5 | 0.3 - 1.2 mg/dL | [facility] | | | TOTAL | | | LABORATORY | | | | | | SERVICES, | | | | | | CORE | | + +---------+ + + + | TOTAL | 7.7 | 6.4 - 8.2 g/dL | [facility] [...] + + + | ALK PHOS | 85 | 53 - 128 U/L | [facility] | | | | | | LABORATORY | | | | | | SERVICES, | | | | | | CORE | | + +---------+ + + + | AST(SGOT) | 22 | <=41 U/L | [facility] | | | | | | LABORATORY | | | | | | SERVICES, | | | | | | CORE | | + +---------+ + + + | ALT (SGPT) | 22 | <=60 U/L | [facility] | | [...] the MDRD equation recommended by the | [facility] | | National Kidney Disease Education Program. [...] | + + + + + | [facility] | [address] | [place] [address] | | | SERVICES, CORE | [address] | | | + + + + + CD4 (T CELL), BLOOD (08/17/2016 4:14 PM PDT) + +-------+ + + + | Component | Value | Ref Range | Performed | Pathologist | | | | | At | Signature | + +-------+ + + + | CD4 % (T | 30.3 | 26.0 - 61.0 % | [facility] | | | HELPER | | | LABORATORY | | | CELLS) | | | SERVICES, | | | | | | SPECIAL IMM | | | | | | + COAG | | + +-------+ + + + | CD4 (T | 664 | 212 - 1,391 /cu | [facility] | | | HELPER | | mm | LABORATORY | | | CELLS) | | | SERVICES, | | | | | | SPECIAL IMM | | | | | | + COAG | | + +-------+ + + + + + | Specimen [...] LABORATORY | | performance characteristics determined by [employer]. It has | SERVICES, | | not [...] | + + + + + | [facility] | [address] | [place] [address] | | | SERVICES, SPECIAL | [address] | | | | IMM + COAG | | | | + + + + + HIV QUANTITATIVE PCR, PLASMA (08/17/2016 4:14 PM PDT) + + + + + + | Component | Value | Ref Range | Performed | Pathologist | | | | | At | Signature | + + + + + + | HIV-QNT PCR | Undetected | Undetected, | [facility] | | | | | Undetected - | DIAGNOSTIC | | | | | See Below | | | | | | copies/mL | LABORATORIE | | | | | | S | | + + + + + + + + | Specimen | + + | Blood - Blood | | (substance) | + + + + + | Narrative | Performed At | + + + | Reportable Range: 40-10,000,000 HIV-1 copies/mL These results | [facility] | | are most likely suggestive of either the absence of HIV viremia or the | DIAGNOSTIC | | presence of low-level HIV viremia at or below the assays lower | LABORATORIES | | sensitivity limit of 40 copies/mL. High or serially rising HIV | | | viral loads are a poor prognostic indicator for antiviral therapy | | | efficacy and predict a more rapid HIV disease progression. Viral | | | load changes of less than approximately 3 fold may not be biologically | | | significant and must be interpreted cautiously. | | + + + + + + + + | Performing | Address | City/State/[facility] Cent[facility] | Phone Number | | Organization | | | | + + + + + | [facility] | [address] | [place] [address] | | | DIAGNOSTIC | [address] | | | | LABORATORIES | | | | + + + + + documented in this encounter Visit Diagnoses + + | Diagnosis | + + | Human immunodeficiency virus (HCC) Asymptomatic human immunodeficiency virus (HIV) | | infection status | + + documented in this encounter"
--- OUTSIDE RECORDS SUMMARY | ~2019-11-25 | XMS | Encounter Summary ---
Demographics + + + | Address | [address] | | | [place] [address] | + + + | Home Phone | | + + + | Preferred Language | Unknown | + + + | Marital Status | | + + + | Confucianist Affiliation | 1013 | + + + | Race | Unknown | + + + | Ethnic Group | Unknown | + + + Author + + + | Author | [facility] | | | and [place] | + + + | Organization | [facility] | | | [...] [place] | | | | | [address] | | + + + + + Care Team Providers + +------+ + | Care Cell Tower Climber Name | Role | Phone | + +------+ + | No, Unknownpcp | PCP | | + +------+ + Encounter Details +--------+ + + + + | Date | Type | Department | Care Team | Description | +--------+ + + + + | 12/03/ | Orders Only | [facility] | [facility] | | | 2003 | | [facility] | MD [facility] [address] | | | | | LABORATORY [address] | | | | | [address] [place], [place] | [place] [address] | | | | | [address] | [phone] | | | | | [phone] | | | +--------+ + + + [...] [facility] | | | | | | [place] | | | | | | [id number] | | | | | | | | +--------+---------+ + + + documented as of this encounter Procedures + +--------+ + + + | Procedure Name | Priori | Date/Time | Associated Diagnosis | Comments | | | ty | | | | + +--------+ + + + | SURGICAL PATHOLOGY | Routin | 12/04/2003 | | Results for this | | EXAM | e | 12:00 AM | | procedure are in the | | | | PDT | | results section. | + +--------+ + + + documented in this encounter Results Surgical Pathology Exam (12/04/2003 12:00 AM PDT) + + | Specimen | + + | | + + + + + | Narrative | Performed At | + + + | SURGICAL PATHOLOGY REPORT | [facility] | | Date Taken: 12/04/2003 Date Received: | | | 12/04/2003 Completed: 12/05/2003 Physician: CARLOS TURNER III | | | Copy to: PEDRO JACOBSEN DIAGNOSIS: 1. | | | Terminal ileum, biopsies: Multiple portions of ileal mucosa with | | | no significant histopathology. 2. Large intestine, | | | multiple random biopsies: Portions of colonic mucosa with no | | | significant histopathology. 0 Torie Tate M.D. | | | Electronic signature GROSS DESCRIPTION: Two specimens are received | | | in fixative. Each consists of fragments of tissue measuring up to a | | | few millimeters in size. The specimen labeled "terminal ileum | | | biopsies" submitted "A". The specimen labeled "random colon | | | biopsies" submitted "B". (PK) 1: [id number](2) [facility] | | | [address] [place] [address] or | | | Testing performed at: [facility] | | | [facility] Mike Mcghee M.D., Director [address] [place] [address] | | + + + + + + + + | Performing | Address | City/State/Zipcode | Phone Number | | Organization | | | | + + + + + | [facility] | [address] | [place] [address] | | | [facility] | | | | | LABORATORY | | | | + + + + + | [facility] | | | | + + + + + documented in this encounter Visit Diagnoses Not on filedocumented in this encounter
--- OUTSIDE RECORDS SUMMARY | ~2019-11-25 | XMS | Encounter Summary ---
Demographics + + + | Address | [address] | | | [place] [address] | + + + | Home Phone | | + + + | Preferred Language | Unknown | + + + | Marital Status | Unmarried Domestic Partner | + + + | Scientologist Affiliation | NON | + + + | Race | White | + + + | Ethnic Group | Not or | + + + Author + + + | Author | [facility] | + + + | Organization | [facility] | + + + | Address | Unknown | + + + | Phone | Unavailable | + + + Support + + + + + | Name | Relationship | Address | Phone | + + + + + | Gabriel Greenberg | ECON | [address] | | | | | [place] | | | | | [address] | | + + + + + Care Team Providers + +------+ + | Care Dermatology Nurse Practitioner Name | Role | Phone | + +------+ + | Caio Ibarra MD | PCP | | + +------+ + Encounter Details +--------+------+ + + + | Date | Type | Department | Care Team | Description | +--------+------+ + + + | 02/06/ | Lab | Laboratory at [facility] | | HIV (human | | 2016 | | [address] | | immunodeficiency | | | | [facility] | | virus infection) | | | | Pavilion, 3rd floor | | ([facility]); Convulsions, | | | | [place], [place] | | unspecified | | | | [address] | | convulsion type | | | | [phone] | | (HCC); Hepatitis B | | | | | | virus infection, | | | | | | unspecified | | | | | | chronicity | +--------+------+ + + + Social History [...] | + +--------+ + + + | HIV-1 GENOTYPE WITH | Routin | 02/07/2016 | HIV (human | Results for this | | VIRAL LOAD | e | 3:07 PM | immunodeficiency | procedure are in the | | | | PDT | virus infection) | results section. | | | | | (HCC) | | + +--------+ + + + | HEPATITIS B BY PCR | Routin | 02/07/2016 | HIV (human | Results for this | | | e | 3:07 PM | immunodeficiency | procedure are in the | | | | PDT | virus infection) | results section. | | | | | (HCC) Hepatitis B | | | | | | virus infection, | | | | | | unspecified | | | | | | chronicity | | + +--------+ + + + | CBC AND AUTO DIFF | Routin | 02/07/2016 | HIV (human | Results for this | | | e | 3:07 PM | immunodeficiency | procedure are in the | | | | PDT | virus infection) | results section. | | | | | (HCC) | | + +--------+ + + + | HEP C PCR | Routin | 02/07/2016 | HIV (human | Results for this | | CONFIRMATION: REFLEX | e | 3:07 PM | immunodeficiency | procedure are in the | | ONLY | | PDT | virus infection) | results section. | | | | | (HCC) | | + +--------+ + + + | LAB OTHER | Routin | 02/07/2016 | HIV (human | Results for this | | | e | 3:07 PM | immunodeficiency | procedure are in the | | | | PDT | virus infection) | results section. | | | | | (HCC) | | + +--------+ + + + | CD4 (T CELL), BLOOD | Routin | 02/07/2016 | HIV (human | Results for this | | | e | 3:07 PM | immunodeficiency | procedure are in the | | | | PDT | virus infection) | results section. | | | | | (HCC) | | + +--------+ + + + | CBC, WITH | Routin | 02/07/2016 | HIV (human | Results for this | | DIFFERENTIAL | e | 3:07 PM | immunodeficiency | procedure are in the | | | | PDT | virus infection) | results section. | | | | | (HCC) | | + +--------+ + + + | VITAMIN D, | Routin | 02/07/2016 | HIV (human | Results for this | | 25-HYDROXY, SERUM | e | 3:07 PM | immunodeficiency | procedure are in the | | | | PDT | virus infection) | results section. | | | | | (HCC) | | + +--------+ + + + | VALPROIC ACID, | Routin | 02/07/2016 | HIV (human | Results for this | | PLASMA | e | 3:07 PM | immunodeficiency | procedure are in the | | | | PDT | virus infection) | results section. | | | | | (HCC) Convulsions, | | | | | | unspecified | | | | | | convulsion type | | | | | | (HCC) | | + +--------+ + + + | HIV-1 GENOTYPE, | Routin | 02/07/2016 | HIV (human | Results for this | | PLASMA | e | 3:07 PM | immunodeficiency | procedure are in the | | | | PDT | virus infection) | results section. | | | | | (HCC) | | + +--------+ + + + | COMPLETE METABOLIC | Routin | 02/07/2016 | HIV (human | Results for this | | SET | e | 3:07 PM | immunodeficiency | procedure are in the | | (NA,K,CL,CO2,BUN,CRE | | PDT | virus infection) | results section. | | AT,GLUC,CA,AST,ALT,B | | | (HCC) | | | TORIBIO TOTAL,ALK | | | | | | PHOS,ALB,PROT TOTAL) | | | | | + +--------+ + + + | UA, DIPSTICK ONLY | Routin | 02/07/2016 | HIV (human | Results for this | | | e | 3:07 PM | immunodeficiency | procedure are in the | | | | PDT | virus infection) | results section. | | | | | (HCC) | | + +--------+ + + + | RPR SERUM | Routin | 02/07/2016 | HIV (human | Results for this | | | e | 3:07 PM | immunodeficiency | procedure are in the | | | | PDT | virus infection) | results section. | | | | | (HCC) | | + +--------+ + + + | HEPATITIS B SURFACE | Routin | 02/07/2016 | HIV (human | Results for this | | AB QUAL, SERUM | e | 3:07 PM | immunodeficiency | procedure are in the | | | | PDT | virus infection) | results section. | | | | | (HCC) Hepatitis B | | | | | | virus infection, | | | | | | unspecified | | | | | | chronicity | | + +--------+ + + + | HEPATITIS B SURFACE | Routin | 02/07/2016 | HIV (human | Results for this | | AG, SERUM | e | 3:07 PM | immunodeficiency | procedure are in the | | | | PDT | virus infection) | results section. | | | | | (HCC) Hepatitis B | | | | | | virus infection, | | | | | | unspecified | | | | | | chronicity | | + +--------+ + + + | HEPATITIS C VIRUS | Routin | 02/07/2016 | HIV (human | Results for this | | W/CONFIRMATION | e | 3:07 PM | immunodeficiency | procedure are in the | | | | PDT | virus infection) | results section. | | | | | (HCC) | | + +--------+ + + + documented in this encounter Results HIV-1 GENOTYPE, PLASMA (02/07/2016 3:07 PM PDT) + + + + + + | Component | Value | Ref Range | Performed | Pathologist | | | | | At | Signature | + + + + + + | HIV-1 | INTERPComment: REVISED | | [facility] | | | GENOTYPIC | RESULTS Interpretation | | MEDICAL | | | IL-RT DRUG | of following results: | | LAB[facility] | | | RESISTANCE | RESIST= Resistance | | | | | | SUSC= No evidence of | | | | | | resistance IL= Possible | | | | | | resistance | | | | | | PRE | | | | | | VIOUSLY REPORTED | | | | | | | | | | | | INTERP (Reported | | | | | | 02/13/2016 22:23) | | | | + + + + + + | NUCLEOS(T)I | SEE BELOWComment: | | [facility] | | | DE RT | RESULT: No relevant | | MEDICAL | | | MUTATIONS | mutations detected | | [facility] | | + + + + + + | ABACAVIR | SUSCComment: REVISED | | [facility] | | | | RESULTS | | MEDICAL | | | | PRE | | [facility] | | | | VIOUSLY REPORTED | | | | | | | | | | | | None (Reported | | | | | | 02/13/2016 22:23) | | | | + + + + + + | DIDANOSINE | SUSCComment: REVISED | | [facility] | | | | RESULTS | | MEDICAL | | | | PRE | | [facility] | | | | VIOUSLY REPORTED | | | | | | | | | | | | None (Reported | | | | | | 02/13/2016 22:23) | | | | + + + + + + | EMTRICITABI | SUSCComment: REVISED | | [facility] | | | NE | RESULTS | | MEDICAL | | | | PRE | | [facility] | | | | VIOUSLY REPORTED | | | | | | | | | | | | None (Reported | | | | | | 02/13/2016 22:23) | | | | + + + + + + | LAMIVUDINE | SUSCComment: REVISED | | [facility] | | | | RESULTS | | MEDICAL | | | | PRE | | [facility] | | | | VIOUSLY REPORTED | | | | | | | | | | | | None (Reported | | | | | | 02/13/2016 22:23) | | | | + + + + + + | STAVUDINE | SUSCComment: REVISED | | [facility] | | | | RESULTS | | MEDICAL | | | | PRE | | [facility] | | | | VIOUSLY REPORTED | | | | | | | | | | | | None (Reported | | | | | | 02/13/2016 22:23) | | | | + + + + + + | TENOFOVIR | MUSTAPHACComment: ABILIO | Lalit [place] | | | | RESULTS | | MEDICAL | | | | PRE | | [facility] | | | | VIOUSLY REPORTED | | | | | | | | | | | | None (Reported | | | | | | 02/13/2016 22:23) | | | | + + + + + + | ZIDOVUDINE | SUSCComment: REVISED | | [facility] | | | | RESULTS | | MEDICAL | | | | PRE | | [facility] | | | | VIOUSLY REPORTED | | | | | | | | | | | | None (Reported | | | | | | 02/13/2016 22:23) | | | | + + + + + + | NONNUCLEOSI | [id number] | | [facility] | | | DE RT | | | MEDICAL | | | MUTATIONS | | | [facility] | | + + + + + + | EFAVIRENZ | RESISTComment: REVISED | | [facility] | | | | RESULTS | | MEDICAL | | | | PRE | | [facility] | | | | VIOUSLY REPORTED | | | | | | | | | | | | Resistance (Reported | | | | | | 02/13/2016 22:23) | | | | + + + + + + | ETRAVIRINE | SUSCComment: REVISED | | [facility] | | | | RESULTS | | MEDICAL | | | | PRE | | [facility] | | | | VIOUSLY REPORTED | | | | | | | | | | | | None (Reported | | | | | | 02/13/2016 22:23) | | | | + + + + + + | NEVIRAPINE | RESISTComment: REVISED | | [facility] | | | | RESULTS | | MEDICAL | | | | PRE | | [facility] | | | | VIOUSLY REPORTED | | | | | | | | | | | | Resistance (Reported | | | | | | 02/13/2016 22:23) | | | | + + + + + + | RILPIVIRINE | SUSCComment: REVISED | | [facility] | | | | RESULTS | | MEDICAL | | | | PRE | | [facility] | | | | VIOUSLY REPORTED | | | | | | | | | | | | None (Reported | | | | | | 02/13/2016 22:23) | | | | + + + + + + | PROTEASE | SEE BELOWComment: | | [facility] | | | MUTATIONS | RESULT: No relevant | | MEDICAL | | | | mutations detected | | [facility] | | + + + + + + | ATAZANAVIR | SUSCComment: REVISED | | [facility] | | | WITH | RESULTS | | MEDICAL | | | RITONAVIR | PRE | | [facility] | | | | VIOUSLY REPORTED | | | | | | | | | | | | None (Reported | | | | | | 02/13/2016 22:23) | | | | + + + + + + | DARUNAVIR | SUSCComment: REVISED | | [facility] | | | WITH | RESULTS | | MEDICAL | | | RITONAVIR | PRE | | [facility] | | | | VIOUSLY REPORTED | | | | | | | | | | | | None (Reported | | | | | | 02/13/2016 22:23) | | | | + + + + + + | FOSAMPRENAV | SUSCComment: REVISED | | [facility] | | | IR WITH | RESULTS | | MEDICAL | | | RITONAVIR | PRE | | [facility] | | | | VIOUSLY REPORTED | | | | | | | | | | | | None (Reported | | | | | | 02/13/2016 22:23) | | | | + + + + + + | INDINAVIR | SUSCComment: ABILIO | Lalit [place] | | | WITH | RESULTS | | MEDICAL | | | RITONAVIR | PRE | | [facility] | | | | VIOUSLY REPORTED | | | | | | | | | | | | None (Reported | | | | | | 02/13/2016 22:23) | | | | + + + + + + | LOPINAVIR | SUSCComment: REVISED | | [facility] | | | WITH | RESULTS | | MEDICAL | | | RITONAVIR | PRE | | [facility] | | | | VIOUSLY REPORTED | | | | | | | | | | | | None (Reported | | | | | | 02/13/2016 22:23) | | | | + + + + + + | NELFINAVIR | SUSCComment: REVISED | | [facility] | | | | RESULTS | | MEDICAL | | | | PRE | | [facility] | | | | VIOUSLY REPORTED | | | | | | | | | | | | None (Reported | | | | | | 02/13/2016 22:23) | | | | + + + + + + | SAQUINAVIR | SUSCComment: REVISED | | [facility] | | | WITH | RESULTS | | MEDICAL | | | RITONAVIR | PRE | | [facility] | | | | VIOUSLY REPORTED | | | | | | | | | | | | None (Reported | | | | | | 02/13/2016 22:23) | | | | + + + + + + | TIPRANAVIR | SUSCComment: REVISED | | [facility] | | | WITH | RESULTS | | MEDICAL | | | RITONAVIR | ADD | | [facility] | | | | ITIONAL | | | | | | INFORMATION | | | | | | ------ Testing was | | | | | | performed using a | | | | | | modification of the | | | | | | FDA-approved ViroSeq | | | | | | HIV-1 Genotyping System, | | | | | | version 2.0 ([employer] | | | | | | [employer] [place] | | | | | | [place], [place]), and | | | | | | results were based on | | | | | | foreign trade teacher's most | | | | | | recent FDA-approved | | | | | | interpretive | | | | | | guidelines. Results | | | | | | obtained by different | | | | | | assay methods should | | | | | | not be used | | | | | | interchangeably. This | | | | | | test has been modified | | | | | | from the foreign trade teacher's | | | | | | instructions. Its | | | | | | performance | | | | | | characteristics were | | | | | | determined by [facility] | | | | | | [facility] in a manner | | | | | | consistent with CLIA | | | | | | requirements. This | | | | | | test has not been | | | | | | cleared or approved by | | | | | | the U.S. Food and Drug | | | | | | Administration. | | | | | | PRE | | | | | | VIOUSLY REPORTED | | | | | | | | | | | | None (Reported | | | | | | 02/13/2016 22:23) | | | | | | Test Performed by: | | | | | | [facility] | | | | | | - [facility] | | | | | | Drive [address] [place] [address] | | | | | | [place] [address] | | | | | | Monument Erector: | | | | | | Clemente [...] | + + + + + | [facility] | [address] | [place], [place] | | | [facility] | [place] | [address] | | + + + + + HEP C PCR CONFIRMATION: REFLEX ONLY (02/07/2016 3:07 PM PDT) + + + + + + | Component | Value | Ref Range | Performed | Pathologist | | | | | At | Signature | + + + + + + | HEPATITIS C | Not Detected | | [facility] - | | | RNA | | | [facility] - | | | | | | [facility] [place] | | + + + + + + + + | Specimen | + + | Blood - Blood | + + + + + + + | Performing | Address | City/State/Zipcode | Phone Number | | Organization | | | | + + + + + | [facility] - | [address] | [place] [address] | | | [place] | | | | + + + + + CBC AND AUTO DIFF (02/07/2016 3:07 PM PDT) + + + + + + | Component | Value | Ref Range | Performed | Pathologist | | | | | At | Signature | + + + + + + | WHITE CELL | 3.89 (L) | 4.40 - 11.00 | [facility] | | | COUNT | | K/cu mm | LABORATORY | | | | | | SERVICES, | | | | | | CORE | | + + + + + + | RED CELL | 5.04 | 4.50 - 6.00 | [facility] | | | COUNT | | M/cu mm | LABORATORY | | | | | | SERVICES, | | | | | | CORE | | + + + + + + | HEMOGLOBIN | 14.4 | 13.5 - 17.5 | [facility] | | | | | g/dL | LABORATORY | | | | | | SERVICES, | | | | | | CORE | | + + + + + + | HEMATOCRIT | 41.4 | 41.0 - 53.0 % | [facility] | | | | | | LABORATORY | | | | | | SERVICES, | | | | | | CORE | | + + + + + + | MCV | 82.1 | 80.0 - 96.0 fL | [facility] | | | | | | LABORATORY | | | | | | SERVICES, | | | | | | CORE | | + + + + + + | MCHC | 34.8 | 33.0 - 35.5 | [facility] | | | | | g/dL | LABORATORY | | | | | | SERVICES, | | | | | | CORE | | + + + + + + | RDW SD | 39.7 | 35.1 - 46.3 fL | [facility] | | | | | | LABORATORY | | | | | | SERVICES, | | | | | | CORE | | + + + + + + | PLATELET | 148 (L) | 150 - 400 K/cu | [facility] | | | COUNT | | mm | LABORATORY | | | | | | SERVICES, | | | | | | CORE | | + + + + + + | MPV | 10.5 | 9.7 - 12.3 fL | [facility] [...] + + + + | NEUTROPHIL | 56.0 | 50.0 - 70.0 % | [facility] | | | % | | | LABORATORY | | | | | | SERVICES, | | | | | | CORE | | + + + + + + | LYMPHOCYTE | 33.4 | 18.0 - 42.0 % | [facility] | | | % | | | LABORATORY | | | | | | SERVICES, | | | | | | CORE | | + + + + + + | MONOCYTE % | 9.3 (H) | 3.5 - 9.0 % | [facility] | | | | | | LABORATORY | | | | | | SERVICES, | | | | | | CORE | | + + + + + + | EOS % | 1.0 | 1.0 - 3.0 % | [facility] | | | | | | LABORATORY | | | | | | SERVICES, | | | | | | CORE | | + + + + + + | BASO % | 0.3 | 0.0 - 2.0 % | [facility] | | | | | | LABORATORY | | | | | | SERVICES, | | | | | | CORE | | + + + + + + | IG% | 0.0Comment: Immature | 0.0 - 0.6 % | [...] + + + + | NEUTROPHIL | 2.18 | 1.80 - 7.70 | [facility] | | | # | | K/cu mm | LABORATORY | | | | | | SERVICES, | | | | | | CORE | | + + + + + + | LYMPHOCYTE | 1.30 | 1.00 - 4.80 | [facility] | | | # | | K/cu mm | LABORATORY | | | | | | SERVICES, | | | | | | CORE | | + + + + + + | MONOCYTE # | 0.36 | 0.10 - 0.90 | [facility] | | | | | K/cu mm | LABORATORY | | | | | | SERVICES, | | | | | | CORE | | + + + + + + | EOS # | 0.04 | 0.00 - 0.50 | [facility] | [...] + + + + | IG# | 0.00 | 0.00 - 0.03 | [facility] | [...] Performed At | + + + | Immature Granulocytes (IG) include metamyelocytes, myelocytes | [facility] | | and promyelocytes. Bands are not included in the IG count. Bands are | LABORATORY | | included in the neutrophil count. | SERVICES, CORE | + + + + + + + + | Performing | Address | City/State/Zipcode | Phone Number | | Organization | | | | + + + + + | [facility] | [address] | [place] [address] | | | SERVICES, CORE | [address] | | | + + + + + LEE NOGUERA (02/07/2016 3:07 PM PDT) + + + [...] | + + + + + | [facility] | [address] | [place] [address] | | | SERVICES, CORE | [address] [...] - | | | | | | [facility] [place] | | + + + + + + + + | Specimen | + + | Blood - Blood | + + + + + + + | Performing | Address | City/State/Zipcode | Phone Number | | Organization | | | | + + + + + | [facility] - | [address] | [place] [address] | | | [place] | | | | + + + + + HEPATITIS B BY PCR (02/07/2016 3:07 PM PDT) + + + + + + | Component | Value | Ref Range | Performed | Pathologist | | | | | At | Signature | + + + + + + | HEP B DNA | Undetected | Undetected, | [facility] | | | QUANT IU | | [...] + + | Performing | Address | City/State/Zuni Hospitalcode | Phone Number | | Organization | | | | + + + + + | [facility] | [address] | [place] [address] | | | DIAGNOSTIC | [address] [...] + | [facility] - | [address] | [place] [address] | | | [place] | | | [...] + | [facility] - | [address] | [place] [address] | | | [place] | | | | + + + [...] | | LAB | | | | [place] | | | | | | [address] | | | | + + + [...] reported to | | | them but [facility] (performing lab) did not have the information, an | | | amended report will be issued by [facility]. | | | | | + + + + + + + + | Performing | Address | City/State/Zipcode | Phone Number | | Organization | | | | + + + + + | [facility] | | | | + + + + + | [facility] | [address] | [place] [address] | | | SERVICES, [place] | [address] | | | + [...] + + + | HIV-QNT PCR | [address] (A)Comment: Result | Undetected | [facility] | | | | in log copies/mL [...] 2.0 | | | | | | ([facility] | | | | | | [employer] Test | | | | | | Performed by: [facility] | | | | | | [facility] - | | | | | | [facility] | | | | | | [address], | | | | | | [place] [address] | | | | | | Monument Erector: | | | | | | Clemente [...] viral load > or = 500. | [facility] | | | [facility] | + + + + + + + + | Performing | Address | City/State/Zipcode | Phone Number | | Organization | | | | + + + + + | [facility] | [address] | [place], [place] | | | LAB[facility] | [place] | [address] | | + + + + + [...] | + + + + + | [facility] | [address] | [place] [address] | | | SERVICES, [facility] | [address] | | | + [...] by | | | | | | [employer],[address] | | | | | | [address], [facility] | | | | | | [address] | | | | | | [phone]$ [email or web address]. | | | | | | Patrice barnhart, | | | | | | , Lab. Director | | | | + + + + + + + + | Specimen | + + | Blood - Blood | + + + + + + + | Performing | Address | City/State/Zipcode | Phone Number | | Organization | | | | + + + + + | [facility] | [address] | [place], [place] | | | [facility] | | [address] | | + + + + + [...] | | | LABORATORY | | | [place] | | | SERVICES, | | | [...] | + + + + + | [facility] | [address] | [place] [address] | | | [place] GARCIA | [address] | | | + [...] LABORATORY | | performance characteristics determined by [employer]. It has | SERVICES, | | not [...] + | [facility] | [address] | [place] [address] | | | SERVICES, SPECIAL | [address] [...] | + + + + + | [facility] | [address] | [place] [address] | | | SERVICES, CORE | [address] | | | + + + + + documented in this encounter Visit Diagnoses + + | Diagnosis | + + | HIV (human immunodeficiency virus infection) (HCC) Asymptomatic human | | immunodeficiency virus (HIV) infection status | + + | Convulsions, unspecified convulsion type (HCC) | + + | Hepatitis B virus infection, unspecified chronicity | + + documented in this encounter"
--- OUTSIDE RECORDS SUMMARY | ~2019-11-25 | XMS | Encounter Summary ---
Demographics + + + | Address | [address] | | | [place] [address] | + + + | Home Phone | | + + + | Preferred Language | Unknown | + + + | Marital Status | | + + + | Jain Affiliation | 1013 | + + + | Race | Unknown | + + + | Ethnic Group | Unknown | + + + Author + + + | Author | [facility] | | | and [place] | + + + | Organization | [facility] | | | [...] [place] | | | | | [address] | | + + + + + Care Team Providers + +------+ + | Care Media Producer Name | Role | Phone | + +------+ + PCP | Unavailable | + +------+ + Encounter Details +--------+ + + + + | Date | Type | Department | Care Team | Description | +--------+ + + + + | 04/02/ | Hospital | [facility] GENER[facility] | Renetta Hu, | Examination for | | 1998 | Encounter | CONVERSION DEP [address] | DO [address] | medicolegal reason | | | | [address] | [place] [address] | | | | | [place], [place] | [phone] | | | | | [address] | | | | | | [phone] | | | +--------+ + + + [...] [place] | | | | | | [address] | | | | | | | | +--------+---------+ + + + documented as of this encounter Visit Diagnoses + + | Diagnosis | + + | Examination for medicolegal reason | + + documented in this encounter"
--- OUTSIDE RECORDS SUMMARY | ~2019-11-25 | XMS | Encounter Summary ---
Demographics + + + | Address | [address] | | | [place] [address] | + + + | Home Phone | | + + + | Preferred Language | Unknown | + + + | Marital Status | Unmarried Domestic Partner | + + + | Rastafarian Affiliation | NON | + + + | Race | White | + + + | Ethnic Group | Not or | + + + Author + + + | Author | [facility] | + + + | Organization | [facility] | + + + | Address | Unknown | + + + | Phone | Unavailable | + + + Support + + + + + | Name | Relationship | Address | Phone | + + + + + | Gabriel [place] | ECON | [address] | | | | | [place] | | | | | [address] | | + + + + + Care Team Providers + +------+ + | Care Career Information Specialist Name | Role | Phone | [...] Description | +--------+--------+ + + + | 08/03/ | Refill | [facility] | Fred, | Refill Request | | 2017 | | at [facility] | MD Caio | | | | | [address] | [address] | | | | | [address] Physician's | [address] [facility], | | | | | Pavilion, 3rd floor | [place] [address] | | | | | [place], [place] | [phone] | | | | | [address] | | | | | | [phone] | | | +--------+--------+ + + + [...]
--- OUTSIDE RECORDS SUMMARY | ~2019-11-25 | XMS | Encounter Summary ---
Demographics + + + | Address | [address] | | | [place] [address] | + + + | Home Phone | | + + + | Preferred Language | Unknown | + + + | Marital Status | | + + + | Sikhism Affiliation | 1013 | + + + | Race | Unknown | + + + | Ethnic Group | Unknown | + + + Author + + + | Author | [facility] | | | and [place] | + + + | Organization | [facility] | | | [...] [place] | | | | | [address] | | + + + + + Care Team Providers + +------+ + | Care Ict Support Technicians Name | Role | Phone | + +------+ + | Jax Cabrera MD | PCP | | + +------+ + Reason for Visit + +--------+ + | Reason | Onset | Comments | | | Date | | + +--------+ + | Referral | 11/06/ | | | | 2020 | | + +--------+ + Encounter Details +--------+ + + + + | Date | Type | Department | Care Team | Description | +--------+ + + + + | 11/06/ | Telephone | [facility] | Vitaliy Mendoza, | Referral | | 2020 | | [facility] | DO [address] | | | | | [address] | [place], [place] | | | | | [address] | [address] | | | | | [place], [place] | | | | | | [address] | | | | | | [phone] | | | +--------+ + + + [...] this encounter Miscellaneous Notes Telephone Encounter - Ruby Alfaro Gregory - 11/07/2019 10:36 AM Barb, is calling [facility] Referral and would like a call back. Additional Call Details: Schedule from new referral. Call back on home number listed. If this is a symptom based call, was patient offered triage? Not Applicable If this is a symptom based call and you were unable to immediately transfer the call to a mila mcgill sales development coordinator was caller made aware that if at [...] [place] | | | | | | [id number] | | | | | | | | +--------+---------+ + + + documented as of this encounter Visit Diagnoses Not on filedocumented in this encounter"
--- OUTSIDE RECORDS SUMMARY | ~2019-11-25 | XMS | Encounter Summary ---
Demographics + + + | Address | [address] | | | [place] [address] | + + + | Home Phone | | + + + | Preferred Language | Unknown | + + + | Marital Status | | + + + | Tenriism Affiliation | 1013 | + + + | Race | Unknown | + + + | Ethnic Group | Unknown | + + + Author + + + | Author | [facility] | | | and [place] | + + + | Organization | [facility] | | | and [...] [place] | | | | | [address] | | + + + + + Care Team Providers + +------+ + | Care Director And Professor Name | Role | Phone | + +------+ + PCP | Unavailable | + +------+ + Encounter Details +--------+ + + + + | Date | Type | Department | Care Team | Description | +--------+ + + + + | 02/13/ | Emergency | [facility] | Brent Win, | Abdominal Pain, | | 2008 | | [facility]ENTER | [address] | Unspecified Site | | | | EMERGENCY CENTER | [place] [address] | | | | | [address] | [phone] | | | | | [place], [place] | | | | | | [address] | | | | | | [phone] | | | +--------+ + + + [...] [place] | | | | | | [address] | | | | | | | | +--------+---------+ + + + documented as of this encounter Visit Diagnoses + + | Diagnosis | + + | Abdominal pain, unspecified site | + + documented in this encounter"
--- OUTSIDE RECORDS SUMMARY | ~2019-11-25 | XMS | Encounter Summary ---
Demographics + + + | Address | [address] | | | [place] [address] | + + + | Home Phone | | + + + | Preferred Language | Unknown | + + + | Marital Status | Unmarried Domestic Partner | + + + | Voodoo Affiliation | NON | + + + | Race | White | + + + | Ethnic Group | Not or | + + + Author + + + | Author | [facility] | + + + | Organization | [facility] | + + + | Address | Unknown | + + + | Phone | Unavailable | + + + Support + + + + + | Name | Relationship | Address | Phone | + + + + + | Gabriel Greenberg | ECON | [address] | | | | | [place] | | | | | [address] | | + + + + + Care Team Providers + +------+ + | Care Still Worker Helper Name | Role | Phone | + [...] | | Pavilion, 3rd floor | | ([facility]); Convulsions, | | | | [place], [place] | | unspecified | | | | [address] | | convulsion type | | | | [phone] | | (HCC); Hepatitis B | | [...] | HIV-1 | INTERPComment: REVISED | | [facility] | | | GENOTYPIC | RESULTS Interpretation | | MEDICAL | | | TN-RT DRUG | of following results: | | LAB-[facility] | | | RESISTANCE | RESIST= Resistance | | | | | | SUSC= No evidence of | | | | | | resistance TN= Possible | | | | | | resistance | | | | | | PRE | | | | | | VIOUSLY REPORTED | | | | | | | | | | | | INTERP (Reported | | | | | | 02/13/2016 22:23) | | | | + + + + + + | NUCLEOS(T)I | SEE BELOWComment: | | [facility] | | | DE RT | RESULT: No relevant | | MEDICAL | | | MUTATIONS | mutations detected | | LAB[facility] | | + + + + + + | ABACAVIR | SUSCComment: REVISED | | [facility] | | | | RESULTS | | [...] | ETRAVIRINE | SUSCComment: REVISED | | [facility] | | | | RESULTS | | MEDICAL | | | | PRE | | LAB-[facility] | | | | VIOUSLY REPORTED | | | | | | | | | | | | None (Reported | | | | | | 02/13/2016 22:23) | | | | + + + + + + | NEVIRAPINE | RESISTComment: REVISED | | [facility] | | | | RESULTS | | MEDICAL | | | | PRE | | LAB[facility] | | | | VIOUSLY REPORTED | | | | | | | | | | | | Resistance (Reported | | | | | | 02/13/2016 22:23) | | | | + + + + + + | RILPIVIRINE | SUSCComment: REVISED | | [facility] | | | | RESULTS | | MEDICAL | | | | PRE | | [facility] | | | | VIOUSLY REPORTED | | | | | | | | | | | | None (Reported | | | | | | 02/13/2016 22:23) | | | | + + + + + + | PROTEASE | SEE BELOWComment: | | [facility] | | | MUTATIONS | RESULT: No relevant | | MEDICAL | | | | mutations detected | | [facility] | | + + + + + + | ATAZANAVIR | SUSCComment: REVISED | | [facility] | | | WITH | RESULTS | | MEDICAL | | | RITONAVIR | PRE | | LAB-[facility] | | | | VIOUSLY REPORTED | | | | | | | | | | | | None (Reported | | | | | | 02/13/2016 22:23) | | | | + + + + + + | DARUNAVIR | SUSCComment: REVISED | | [facility] | | | WITH | RESULTS | [...] | LOPINAVIR | SUSCComment: REVISED | | [facility] | | | WITH | RESULTS | | MEDICAL | | | RITONAVIR | PRE | | LAB-[facility] | | | | VIOUSLY REPORTED | | | | | | | | | | | | None (Reported | | | | | | 02/13/2016 22:23) | | | | + + + + + + | NELFINAVIR | SUSCComment: REVISED | | [facility] | | | | RESULTS | | MEDICAL | | | | PRE | | LAB-[facility] | | | | VIOUSLY REPORTED | | | | | | | | | | | | None (Reported | | | | | | 02/13/2016 22:23) | | | | + + + + + + | SAQUINAVIR | SUSCComment: REVISED | | [facility] | | | WITH | RESULTS | | MEDICAL | | | RITONAVIR | PRE | | LAB[facility] | | | | VIOUSLY REPORTED | | | | | | | | | | | | None (Reported | | | | | | 02/13/2016 22:23) | | | | + + + + + + | TIPRANAVIR | SUSCComment: REVISED | | [facility] | | | WITH | RESULTS | [...] | | | | | version 2.0 ([employer] | | | | | | [employer] [place] | | | | | | [place], [place]), and | | | | | | results were based on | | | | | | cryptanalyst's most | | | | | | [...] | | | | | from the cryptanalyst's | | | | | | instructions. Its | | | | | | performance | | | | | | characteristics were | | | | | | determined by [facility] | | | | | | [facility] in a manner | | | | [...] by: | | | | | | [facility] | | | | | | - [facility] | | | | | | Drive [address] [place] [address] | | | | | | [place] [address] | | | | | | Mixer Pigment: | | | | | | Clemente [...] | + + + + + | [facility] | [address] | [place], [place] | | | [facility] | [place] | [address] | | + + + + + [...] - | | | | | | [facility] | | + + + + + + + + | Specimen | + + | Blood - Blood | + + + + + + + | Performing | Address | City/State/Zipcode | Phone Number | | Organization | | | | + + + + + | [facility] | [address] | [place] [address] | | | [place] | | | | + + + [...] | + + + + + | [facility] | [address] | [place] [address] | | | SERVICES, CORE | [address] | | | + + + + + ELE NOGUERA (02/07/2016 3:07 PM PDT) + + [...] | + + + + + | [facility] | [address] | [place] [address] | | | SERVICES, CORE | [address] [...] - | | | | | | [facility] | | + + + + + + + + | Specimen | + + | Blood - Blood | + + + + + + + | Performing | Address | City/State/Zipcode | Phone Number | | Organization | | | | + + + + + | [facility] | [address] | [place] [address] | | | [place] | | | | + + + [...] + + | Performing | Address | City/State/[facility] | Phone Number | | Organization | | | | + + + + + | [facility] | [address] | [place] [address] | | | DIAGNOSTIC | [address] [...] + | [facility] | [address] | [place] [address] | | | [place] | | | [...] + | [facility] | [address] | [place] [address] | | | [place] | | | | + + + [...] [place] | | | | | | [address] | | | | + + + [...] reported to | | | them but [facility] (performing lab) did not have the information, an | | | amended report will be issued by [facility]. | | | | | + + + + + + + + | Performing | Address | City/State/Zipcode | Phone Number | | Organization | | | | + + + + + | [facility] | | | | + + + + + | [facility] | [address] | [place] [address] | | | SERVICES, ARELIS | [address] [...] + + + | HIV-QNT PCR | [address] (A)Comment: Result | Undetected | [facility] | | | | in log copies/mL [...] 2.0 | | | | | | ([employer] | | | | | | [employer] Test | | | | | | Performed by: [facility] | | | | | | [facility] - | | | | | | [facility] | | | | | | [address], | | | | | | [place] [address] | | | | | | Mixer Pigment: | | | | | | Clemente [...] viral load > or = 500. | [facility] | | | [facility] | + + + + + + + + | Performing | Address | City/State/Zipcode | Phone Number | | Organization | | | | + + + + + | [facility] | [address] | [place], [place] | | | [facility] | [place] | [address] | | + + + + + [...] | + + + + + | [facility] | [address] | [place] [address] | | | SERVICES, [facility] | [address] | | | + [...] by | | | | | | [address] | | | | | | [place], [facility] | | | | | | [address] | | | | | | [phone]. | | | | | | Patrice [...] [facility] | [address] | [place], [place] | | | [facility] | | [address] | | + + + + + [...] | | | LABORATORY | | | AZER[place]ANI | | | SERVICES, | | | [...] | + + + + + | [facility] | [address] | [place] [address] | | | ARE[place] GARCIA | [address] [...] LABORATORY | | performance characteristics determined by [employer]. It has | SERVICES, | | not [...] LABORATORY | [address] | [place] [address] | | | SERVICES, SPECIAL | PARK [...] + + | [facility] | [address] | [place] [address] | | | SERVICES, CORE | [address] [...]
--- OUTSIDE RECORDS SUMMARY | ~2019-11-25 | XMS | Encounter Summary ---
Demographics + + + | Address | [address] | | | [place] [address] | + + + | Home Phone | | + + + | Preferred Language | Unknown | + + + | Marital Status | Unmarried Domestic Partner | + + + | Adventism Affiliation | NON | + + + | Race | White | + + + | Ethnic Group | Not or | + + + Author + + + | Author | [facility] [employer] [facility] | + + + | Organization | [facility] | + + + | Address | Unknown | + + + | Phone | Unavailable | + + + Support + + + + + | Name | Relationship | Address | Phone | + + + + + | Gabriel Greenberg | ECON | [address] | | | | | [place] | | | | | [address] | | + + + + + Care Team Providers + +------+ + | Care Business Education Professor Name | Role | Phone | [...] Ibarra | | 2017 | | at [facility] | MD Caio | | | | | [address] | [address] | | | | | Loop Physician's | [place] [facility], | | | | | [place], 3rd floor | [place] [address] | | | | | [place], [place] | [phone] | | | | | [address] | | | | | | [phone] | | | +--------+ + + + [...]
--- OUTSIDE RECORDS SUMMARY | ~2019-11-25 | XMS | Encounter Summary ---
Demographics + + + | Address | [address] | | | [place] [address] | + + + | Home Phone | | + + + | Preferred Language | Unknown | + + + | Marital Status | Unmarried Domestic Partner | + + + | Oriental Orthodox Affiliation | NON | + + + | Race | White | + + + | Ethnic Group | Not or | + + + Author + + + | Author | [facility] | + + + | Organization | [facility] | + + + | Address | Unknown | + + + | Phone | Unavailable | + + + Support + + + + + | Name | Relationship | Address | Phone | + + + + + | Gabriel Greenberg | ECON | [address] | | | | | [place] | | | | | [address] | | + + + + + Care Team Providers + +------+ + | Care Edge Bonder Name | Role | Phone | + +------+ + | Jax Cabrera MD | PCP | | + +------+ + Reason for Visit + + + | Reason | Comments | + + + | Social work | ROIs | | consultation | | + + + Encounter Details +--------+ + + + + | Date | Type | Department | Care Team | Description | +--------+ + + + + | 08/17/ | Documentati | [facility] Primary Care | Krista Lo | Social work | | 2017 | on | at [facility] | [address] | consultation (ROIs) | | | | [address] | [address] [place], | | | | | Loop Physician's | [place] [address] | | | | | Pavilion, rust floor | | | | | | [place], [place] | | | | | | [address] | | | | | | [phone] | | | +--------+ + + + [...]
--- OUTSIDE RECORDS SUMMARY | ~2019-11-25 | XMS | Encounter Summary ---
Demographics + + + | Address | [address] | | | [place] [address] | + + + | Home Phone [...] [place] | | | | | [address] | | + + + + + Care Team Providers + +------+ + | Care [employer] Worker Name | Role | Phone | + +------+ + | Jax Cabrera MD | PCP | | + +------+ + Reason for Visit + + + | Reason | Comments | + + + | Seizure (Adult - | | | Prior Hx Of) | | + + + | Back Pain | | + + + Encounter Details +--------+ + + + + | Date | Type | Department | Care Team | Description | +--------+ + + + + | 10/23/ | Emergency | [facility] | Benji Zheng MD | Observed | | 2020 | | MEDICAL CENTER | [address] | seizure-like | | | | EMERGENCY CENTER | [place] [address] | activity (HCC) | | | | [address] | [phone] | (Primary Dx); | | | | [place], [place] | | Chronic bilateral | | | | [address] | | low back pain with | | | | [phone] | | bilateral sciatica | +--------+ + + + + Social [...] + + + | Blood Pressure | 156/93 | 10/24/2019 11:07 AM | Simultaneous filing. | | | | PDT | User may not have | | | | | seen previous data. | + + + + + | Pulse | 72 | 10/24/2019 11:07 AM | | | | | PDT | | + + + + + | Temperature | 36.8 C (98.2 F) | 10/24/2019 11:07 AM | | | | | PDT | | + + + + + | Respiratory Rate | 20 | 10/24/2019 11:07 AM | Simultaneous filing. | | | | PDT | User may not have | | | | | seen previous data. | + + + + + | Oxygen Saturation | 97% | 10/24/2019 11:07 AM | Simultaneous filing. | | | | PDT | User may not have | | | | | seen previous data. | + + + + + | [...] + documented in this encounter Discharge Instructions AttachmentsThe following attachments cannot be sent through Care Everywhere.Back Pain, Reli eving (Kenyan)documented in this encounter Medications at Time of Discharge + + + +---------+ + + | Medication | Sig | Dispensed | Refills | Start | End Date | | | | | | Date | | + + + +---------+ + + | albuterol 90 | Inhale 1-2 puffs by | | 0 | 02//20 | | | mcg/puff inhaler | mouth [...] per PCP. Per | | 0 | 12/16/20 | | | (SEREVENT DISKUS) 50 | [...] + + +---------+ + + | oxyCODONE 10 MG | Take 1 tablet by | 12 | 0 | 10/24/19 | | | TABS | mouth every 6 hours | tablet | | 20 | 0 | | | as needed for Pain | | | | | | | for up to 3 days. | | | | | + + + +---------+ + + documented as of this encounter ED Notes Tona Lagos RN - 10/24/2019 10:07 AM PDTPlaced patient on 2L for decreased oxygen s aturation in the 80s. enji Zheng MD - 10/24/2019 9:24 AM PDTFormatting of this note might be different fr om the original. [facility] Department of Emergency Medicine History of Present Illness Patient Identification Ivan Chavez is a 53 y.o. male. Patient information was obtained from patient History/Exam limitations:none ED08/ED08 Primary Care Doctor: Jax Cabrera MD Chief Complaint Chief Complaint Patient presents with Seizure (Adult - Prior Hx Of) Back Pain Ivan Chavez is a 53 y.o. male who presents with back pain, seizure. Patient states that h e suffers from severe back pain. When the pain gets bad he will have seizure-like activity. States he has a history of seizures but has not been on any antiepileptic medication for a pproximately 3 years. He denies any recent illness, fever, chills, urinary incontinence or retention. He went to Dr. Dong's office today in hopes of having a steroid injection in his back as they have worked well historically. He reportedly had seizure activity in their office and EMS was activated. Upon their arrival he was awake alert with no apparent injur y or incontinence. Brought here for further evaluation as Dr. Dong was not in the office . Past Medical History: Diagnosis Date Congenital heart disease 04/14/2016 HIV (human immunodeficiency virus infection) ([facility]) 04/14/2016 Seizure disorder ([facility]) 04/15/2016 Past Surgical History: Procedure Laterality Date CAUDAL BLOCK Right 07/07/2019 Caudal w/Cath Targeting Right L4,L5,S1 CHOLECYSTECTOMY ELBOW SURGERY Right x2 EPIDURAL STEROID INJECTION 07/28/2019 C6-C7 MARK FL SACROILIAC INJECTION Bilateral 03/21/2019 HIATAL HERNIA REPAIR TONSILLECTOMY Prior to Admission medications Medication Sig Start Date End Date Taking? Authorizing Provider albuterol 90 mcg/puff inhaler Inhale 1-2 puffs by mouth every six hours as needed. Contact provider if using >1 inhaler/month. (Pharmacy: please disp whichever albuterol is on formula ry) 06/17/16 Historical Provider, albuterol 90 mcg/puff inhaler Inhale into the lungs. 06/17/16 Historical Provider, albuterol-ipratropium (COMBIVENT) 103-18 mcg/puff inhaler Inhale 2 puffs into the lungs kerry ry 6 hours as needed for Wheezing. Historical Provider, amLODIPine (NORVASC) 5 mg tablet Take 5 mg by mouth. 04/16/16 Historical Provider, amLODIPine (NORVASC) 5 mg tablet Take 1 tablet by mouth Daily. 04/16/16 Owenodalys Barbosa od, crofelemer (FULYZAQ) 125 mg EC tablet Take 1 tablet by mouth every twelve hours. 11/23/16 Historical Provider, cyclobenzaprine (FLEXERIL) 10 mg tablet Take 10 mg by mouth 3 (three) times daily as needed for Muscle spasms. Historical Provider, Dexlansoprazole (DEXILANT) 60 MG CPDR Take 60 mg by mouth Daily. 06/08/11 DATA MIGRATION E DI SR dexlansoprazole (DEXILANT) [address] capsule Take 1 capsule by mouth every morning before br eakfast. 11/09/18 Historical Provider, dicyclomine (BENTYL) 10 mg capsule Take 1 capsule by mouth 4 (four) times daily as needed. 11/09/18 11/09/19 Historical Provider, diphenoxylate-atropine (LOMOTIL) 2.5-0.025 mg per tablet Take 1 tablet by mouth 4 (four) ti mes daily as needed for Diarrhea. 05/01/16 11/09/19 Historical Provider, divalproex (DEPAKOTE ER) 250 mg 24 hr tablet Take 500 mg by mouth 2 (two) times daily. H istorical Provider, divalproex (DEPAKOTE) [address] tablet Rx per PCP. Per patient takes 1 tablet BID for seizu re d/o. 05/01/16 Historical Provider, divalproex (DEPAKOTE) 250 mg EC tablet Take 250 mg by mouth Daily. 02/02/12 DATA MIGRATION SARAHI SR dolutegravir (TIVICAY) 50 mg tablet Take 100 mg by mouth daily. 06/17/16 Historical Provide r, DULoxetine (CYMBALTA) 30 mg capsule Take 30 mg by mouth Daily. Patient taking differently: Take 60 mg by mouth Daily. 02/02/12 DATA MIGRATION SARAHI SR Emtricitabine-Tenofovir (TRUVADA PO) TABS: one tablet daily 02/02/12 DATA MIGRATION SARAHI SR emtricitabine-tenofovir alafenamide (DESCOVY) 200-25 mg per tablet Take 1 tablet by mouth o nce daily. 06/17/16 Historical Provider, emtricitabine-tenofovir DF (TRUVADA) 200-300 mg per tablet Take 1 tablet by mouth daily. Historical Provider, fluticasone-vilanterol (BREO ELLIPTA) 100-25 mcg/puff inhaler Inhale 1 puff into the lungs daily. Historical ProviderMD HYDROcodone-acetaminophen (NORCO) 5-325 mg per tablet Take 1-2 tablets by mouth every 6 (si x) hours as needed for Pain. Do not exceed 8 in a 24 hour period. Do not take Tylenol, as t his medication has Tylenol in it. 12/06/18 Historical ProviderMD HYDROcodone-acetaminophen (NORCO) 5-325 mg per tablet Take 1 tablet by mouth every 6 hours as needed. 12/10/17 Benji Estrada MD hydrOXYzine hydrochloride (ATARAX) 25 mg tablet Take 25 mg by mouth 3 (three) times daily a s needed for Itching. Historical ProviderMD loratadine (CLARITIN) 10 mg tablet Take 10 mg by mouth daily as needed. Historical Provi MD marily loratadine (GNP LORATADINE) 10 mg tablet Take 10 mg by mouth Daily. 02/02/12 DATA MIGRATIO N SARAHI SR methylPREDNISolone (MEDROL DOSEPAK) 4 mg tablet Take by mouth. Follow package directions. Historical Provider, nitroglycerin (NITROSTAT) 0.[address] 0.4 mg under the tongue every 5 minutes as needed for Chest pain. Historical ProviderMD ondansetron (ZOFRAN ODT) 8 mg disintegrating tablet Take 1 tablet by mouth every 8 hours as needed for Nausea. 12/10/17 Benji Estrada MD ondansetron (ZOFRAN) 4 mg tablet Take 4 mg by mouth every 8 hours as needed. 06/08/11 DATA MIGRATION SARAHI SR oxyCODONE (OXYCONTIN) 10 mg ER abuse-deterrent tablet Take 10 mg by mouth as needed for Talia n. Historical ProviderMD pregabalin (LYRICA) 150 MG capsule Take 150 mg by mouth 2 (two) times daily. Historical ProviderMD pregabalin (LYRICA) 150 MG capsule Take 150 mg by mouth Daily. 05/21/11 DATA MIGRATION SARAHI SR promethazine (PHENERGAN) 12.5 MG tablet Takes as needed for nausea. 08/04/16 Historical Pr oviderMD salmeterol (SEREVENT DISKUS) 50 mcg/puff diskus inhaler Rx per PCP. Per patient takes 2 puf fs as needed. 05/01/16 Historical ProviderMD salmeterol (SEREVENT DISKUS) 50 mcg/puff diskus inhaler Inhale 1 puff into the lungs as nee ded. Historical Provider, SUMAtriptan (IMITREX) 100 mg tablet Take by mouth. Historical Provider, SUMAtriptan (IMITREX) 100 mg tablet Take 100 mg by mouth as needed. 02/02/12 DATA MIGRATIO N SARAHI SR telmisartan (MICARDIS) 80 MG tablet Take 1 tablet by mouth once daily. Indications: HYPERTE NSION 03/09/16 Historical ProviderMD telmisartan (MICARDIS) 80 MG tablet Take 80 mg by mouth Daily. Historical Provider, telmisartan-hydrochlorothiazide (MICARDIS HCT) 80-12.5 MG per tablet Take 1 tablet by mouth daily. Historical Provider, traZODone (DESYREL) 100 mg tablet Rx per PCP. Per patient takes 1 tablet every evening for sleep. 05/01/16 Historical ProviderMD traZODone (DESYREL) 100 mg tablet Take 100 mg by mouth nightly. 02/02/12 DATA MIGRATION ED I SR Allergies Allergen Reactions Gabapentin Hallucination, Other (See Comments) and Unknown Loss of memory, headache Loss of memory, headache Loss of memory, headache Loss of memory, headache Loss of memory, headache Loss of memory, headache Phenytoin Diarrhea, Other (See Comments) and Unknown h/a h/a h/a h/a h/a h/a Ritonavir Other (See Comments) Morphine Nausea And Vomiting Social History Tobacco Use Smoking status: Never Smoker Smokeless tobacco: Never Used Substance Use Topics Alcohol use: No Alcohol/week: 0.0 standard drinks Drug use: No Types: Heroin Comment: Quit 01/24/93 Family History Problem Relation Age of Onset Alcohol abuse Mother Cancer Father Past personal, family, social history noted as above and utilized in assesment and plan for mulation. Review of Systems Positive for: Acute on chronic back pain, recurrent seizure activity No fever, chills, nausea or vomiting. No vision changes, difficulty breathing. No headache, chest pain, abdominal pain, weakness or rash. No difficulty with urination or bowel movements. No other complaints. See HPI for further relevant details. All systems otherwise negative, except as recorded above and as recorded in the HPI. Physical Exam Vitals: 10/24/19 0926 10/24/19 1005 10/24/19 1030 10/24/19 1107 BP: (!) 213/125 (!) 164/91 (!) 158/114 (!) 156/93 Pulse: 63 69 74 72 Resp: Temp: 37.2 C (98.9 F) 36.8 C (98.2 F) TempSrc: Oral Oral SpO2: 96% 95% 96% 97% INTERPRETATION OF VITALS Pulse Oximetry interpretation: Normal Otherwise normal PHYSICAL EXAM Appearance: Alert. No acute distress. Head: Normal external exam. Eyes: EOMI, PERRL, no scleral icterus. ENT: Normal external ENT inspection. Neck: Supple. FROM. CVS: Normal heart rate and rhythm. Heart sounds normal. Pulses normal. Respiratory: No respiratory distress. No wheezing, rales, or rhonchi. Abdomen: Non-distended.Soft and nontender. No rebound or guarding. Genitourinary: Deferred. Back: Moves with difficulty. Skin: Skin warm and dry. Extremities: No deformity. Neurological: Moves all extremities. No gross deficit. Medical Decision Making and Emergency Department Course ED Department Course: 9:24 AM Ivan Chavez is a 53 y.o. male who presents with a chief complaint of acute on chronic back pain, seizure-like activity. Patient states that he has seizures when his pain gets s evere and would like something to help with his pain. Will obtain screening labs and treat symptomatically. Will monitor on seizure precautions. Neurologically intact at this time.. Patient feeling significantly improved. Mild desaturations. Doing well on 2 L. Labs fairly unremarkable. Social work was provided potential follow-up Avenue. Patient's pain has worsened somewhat but improved compared to prior. We will continue supportive care at home. At this time I feel the patient is stable for outpatient management with close follow-up.Ty pical anticipatory guidelines and strict return to Emergency Department precautions have bee n given. All involved are understanding of and in agreement with this plan. All questions tidwell ve been addressed to the best of my ability. Medications provided during ED visit Medications HYDROmorphone (DILAUDID) injection 1 mg (1 mg Intravenous Given 10/24/19940) ketorolac (TORADOL) injection 15 mg (has no administration in time range) LORazepam (ATIVAN) injection 1 mg (1 mg Intravenous Given 10/24/19940) ondansetron (ZOFRAN) injection 4 mg (4 mg Intravenous Given 10/24/19944) Records Reviewed Old medical records. Nursing notes. Laboratory Evaluation Results Procedure Component Value Ref Range Date/Time Comprehensive Metabolic Panel [[id number]] (Abnormal) Collected: 10/24/19936 Order Status: Completed Specimen: Blood Updated: 10/24/19953 Na 140 135 - 145 mmol/L K 3.8 3.5 - 4.9 mmol/L Cl 106 99 - 109 mmol/L CO2 24 23 - 32 mmol/L Anion Gap 14 5 - 20 mmol/L Glucose 104 65 - 99 mg/dL BUN 17 8 - 25 mg/dL Creatinine 0.87 0.70 - 1.30 mg/dL BUN/Creatinine Ratio 20 Calcium 10.0 8.5 - 10.5 mg/dL Protein, Total 7.2 6.3 - 8.2 g/dL Albumin 4.9 3.6 - 5.0 g/dL Globulin 2.3 1.3 - 4.9 g/dL A/G Ratio 2.1 1.0 - 2.4 BILIRUBIN, TOTAL 0.6 0.1 - 1.5 mg/dL ALK PHOS 91 35 - 115 U/L AST 19 10 - 45 U/L ALT 22 10 - 65 U/L Estimated GFR >60 >60 mL/min/1.73m2 CBC with Differential [[id number]] (Abnormal) Collected: 10/24/19936 Order Status: Completed Specimen: Blood Updated: 10/24/19945 WBC 4.74 3.80 - 11.00 K/uL RBC 5.56 4.20 - 5.70 M/uL Hemoglobin 16.2 13.2 - 17.0 g/dL Hematocrit 46.2 39.0 - 50.0 % MCV 83.1 80.0 - 100.0 fl MCH 29.1 27.0 - 34.0 pg MCHC 35.1 32.0 - 35.5 g/dL RDW-SD 36.7 37 - 53 fl Platelet Count 208 150 - 400 K/uL MPV 10.5 fl Diff Type AUTOMATED % nRBC 0.0 0 /100WBC % Neutrophils 54.90 % IMMATURE GRANULOCYTE 0.20 % % Lymphocytes 32.50 % Monocyte % 10.50 % Eosinophils % 1.30 % Basophils % 0.60 % Neutrophils, Absolute 2.60 1.90 - 7.40 K/uL IMMATURE GRANS AB 0.01 0.00 - 0.07 K/uL Absolute Lymphocytes 1.54 1.00 - 3.90 K/uL Absolute Monocytes 0.50 0.00 - 0.80 K/uL Eosinophils, Absolute 0.06 0.00 - 0.50 K/uL Basophils, Absolute 0.03 0.00 - 0.10 K/uL Lab Interpretation I have reviewed lab results from the emergency department workup and abnormal results have been posted to the chart. Pertinent positive and negative findings have been addressed appr opriately. Radiology and ECG Evaluation No results found. Diagnosis: 1. Observed seizure-like activity (HCC) 2. Chronic bilateral low back pain with bilateral sciatica Disposition: ED Disposition ED Disposition Condition Comment Discharge Stable Follow up: Discharge Medications: ED Prescriptions Sig oxyCODONE 10 MG TABS Take 1 tablet by mouth every 6 hours as needed for Pain for up to 3 d ays. This document has been prepared with a voice recognition system. The possibility of "sound alike" sap technical developer errors, addition and/or deletions may occur. If there is any question p lease contact the author of the document. Please note appropriate PPE was worn during all interactions with the patient. Procedures Benji Zheng MD 10/24/19 1117 Benji Zheng MD 10/24/19 1117 Calista Ramsey RN - 10/24/2019 9:24 AM PDTBed: ED08 Expected date: Expected time: Means of arrival: Comments: 1721 Nigel Ramsey RN - 10/24/2019 9:22 AM ASCENCION Patterson with [facility] [id number] with report: Male patient wi th seizure x 2. Hx of seizure. Called to [facility] where patient was supposed to be getti ng steroid injection d/t back pain when witnessed seizure activity while waiting in lobby. documented in t his encounter Miscellaneous Notes Plan of Care - Asya Lyon MSW - 10/24/2019 11:09 AM PDTProvided physician with lesleyr lul for the patient about medical Tx options in [facility]. Asya Lyon, LICSW Tdocumented in this encounter Plan of Treatment +--------+---------+ + + + | Date | Type | Specialty | Care Team | Description | +--------+---------+ + + + | 12/05/ | Office | Pain Medicine | Vitaliy Mendoza, | | 2019 | Visit | | DO [address] | | | | | | [place] | | | | | | [id number] | | | | | | | | +--------+---------+ + + + + +------+--------+ + + | Name | Type | Priori | Associated Diagnoses | Date/Time | | | | ty | | | + +------+--------+ + + | ED INFORMATION | MAIKEL | Routin | | 10/24/2019 9:24 AM | | EXCHANGE | | e | | PDT | + +------+--------+ + + documented as of this encounter Procedures + +--------+ + + + | Procedure Name | Priori | Date/Time | Associated Diagnosis | Comments | | | ty | | | | + +--------+ + + + | CBC WITH | STAT | 10/24/2019 | | Results for this | | DIFFERENTIAL | | 9:37 AM | | procedure are in the | | | | PDT | | results section. | + +--------+ + + + | COMPREHENSIVE | STAT | 10/24/2019 | | Results for this | | METABOLIC PANEL | | 9:37 AM | | procedure are in the | | | | PDT | | results section. | + +--------+ + + + | ED INFORMATION | Routin | 10/24/2019 | | | | EXCHANGE | e | 9:24 AM | | | | | | PDT | | | + +--------+ + + + +---+--------+ | | | | | Proced | | | ure | | | Note - | | | Sarahi, | | | Lab In | | | | | | Hlseve | | | n - | | | 10/23/ | | | 2019 | | | 9:25 | | | AM PDT | | | | | | [...] | | | FICATI | | | ON? | | | 09/202 | | | 0 | | | 09:23? | | | CHAVEZ, | | | ELMER | | | L | | | C?MRN: | | | | | | [id number] | | | [id number] | | | riteri | | | a Met | | | Care | | | Guidel | | | inesSe | | | curity | | | and | | | Safety | | | No | | | recent | | | | | | Securi | | | ty | | | Events | | | | | | curren | | | tly on | | | | | | fileED | | | Care | | | [...] | | | St. | | | [place] | | | y | | | [...] | | | St. | | | [place] | | | y | | | [...] | | | St. | | | [place] | | | y | | | [...] | | | ing | | | care.F | | | lags | | | [place] | | | ED | | | Dispar | | | ity | | | Measur | | | e - | | | [place] | | | has | | | develo | | | ped a | | | flag | | | (Orego | | | n ED | | | Dispar | | | ity | | | Measur | | | e) to | | | help | | | suppor | | | t | | | Medica | | | id | | | member | | | s with | | | | | | mental | | | | | | illnes | | | s. | | | [place] | | | | | | Health | | | | | | Author | | | ity | | | uses | | | claims | | | data | | | with a | | | | | | 36-mon | | | th | | | mindy | | | g look | | | back | | | period | | | to | | | identi | | | fy | | | member | | | s who | | | have | | | had | | | two or | | | more | | | diagno | | | ses of | | | | | | mental | | | | | | illnes | | | s | | | (does | | | not | | | need | | | to be | | | primar | | | y) in | | | any | | | settin | | | g | | | (e.g. | | | ED, | | | Inpati | | | ent, | | | primar | | | y | | | care). | | | | | | Flagge | | | d | | | member | | | s are | | | includ | | | ed in | | | the ED | | | | | | Dispar | | | ity | | | Measur | | | e | | | denomi | | | nator | | | popula | | | tion. | | | Flags | | | are | | | update | | | d | | | weekly | | | . / | | | Attrib | | | uted | | | By: | | | [place] | | | | | | Health | | | | | | Author | | | ity | | | (OHA) | | | / | | | Attrib | | | uted | | | On: | | | 03/11/ | | | 2020 | | | Prescr | | | iption | | | Drug | | | [...] | | | [facility] | | | | | | [facility] [...] | | | St[facility] | | | [place] | | | y | | | Hospit | | | al 1 0 | | | Total | | | 4 0 | | | Note: | | [...] | | | int | | | Dandre 9, | | | 2020 | | | [facility] | | | | | | [facility] | | | al | | | [facility] | | | [place] | | | [place] | | | Emerge | | | ncy | | | Aug | | | [...] | | | injury | | | | | | Elbow | | | Injury | | | | | | Unspec | | | ified | | | fractu | | | re of | | | lower | | | end of | | | right | | | | | | humeru | | | s, | | | initia | | | l e | | | [place] | | | [...] | | | St. | | | [place] | | | y H. | | [...] | | cervic | | | al reg | | | | | | Unspec | | | ified | | | thorac | | | ic, | | | thorac | | | olumba | | | r and | | | lumbos | | | acral | | | interv | | | ert | | | Low | | | [...] | | | epilep | | | | | | Bipola [...] | | | ical | | | sub | | | | | | Chroni [...] ified | | | | | | Recent | | | | | | Inpati | | | ent | | | Visit | | | Summar | | | yNo | | | record | | | ed | | | inpati | | | ent | | | visits | | | . Care | | | | | | TeamTh | | | ere is | | | not a | | | care | | | team | | | on | | | record | | | at | | | this | | | time. | | | Colle[facility] | | | tive | | | Portal | | | This | | | patien | | | t has | | | regist | | | ered | | | at the | | | | | | [facility] [...] | | | //secu | | | re.col | | | lectiv | | | emedic | | | al.com | | | /notif | | | [id number] | | | [id number] | | | [id number] | | | [id number] | | | [id number] | | | [id number] | | | 28 | | | PLEASE | | | [...] provid | | | ed.? | | 2019 | | | [facility]le[facility] | | | tive | | | Medica | | | l | | | Techno | | | logies | | | , Inc. | | | - | | | [email or web address] | | | llecti | | | vemedi | | | [email or web address] | | | m | +---+--------+ documented in this encounter Results Comprehensive Metabolic Panel (10/24/2019 9:37 AM PDT) + + + + + + | Component | Value | Ref Range | Performed | Pathologist | | | | | At | Signature | + + + + + + | Na | 140 | 135 - 145 | [facility] | | | | | mmol/L | LABORATORY | | + + + + + + | K | 3.8 | 3.5 - 4.9 | [facility] | | | | | mmol/L | LABORATORY | | + + + + + + | Cl | 106 | 99 - 109 mmol/L | [facility] | | | | | | LABORATORY | | + + + + + + | CO2 | 24 | 23 - 32 mmol/L | [facility] | | | | | | LABORATORY | | + + + + + + | Anion Gap | 14 | 5 - 20 mmol/L | [facility] | | | | | | LABORATORY | | + + + + + + | Glucose | 104 (H) | 65 - 99 mg/dL | [facility] | | | | | | LABORATORY | | + + + + + + | BUN | 17 | 8 - 25 mg/dL | [facility] | | | | | | LABORATORY | | + + + + + + | Creatinine | 0.87 | 0.70 - 1.30 | [facility] | | | | | mg/dL | LABORATORY | | + + + + + + | BUN/Creatin | 20 | | [facility] | | | ine Ratio | | | LABORATORY | | + + + + + + | Calcium | 10.0 | 8.5 - 10.5 | [facility] | | | | | mg/dL | LABORATORY | | + + + + + + | Protein, | 7.2 | 6.3 - 8.2 g/dL | [facility] | | | Total | | | LABORATORY | | + + + + + + | Albumin | 4.9 | 3.6 - 5.0 g/dL | [facility] | | | | | | LABORATORY | | + + + + + + | Globulin | 2.3 | 1.3 - 4.9 g/dL | [facility] | | | | | | LABORATORY | | + + + + + + | A/G Ratio | 2.1 | 1.0 - 2.4 | [facility] | | | | | | LABORATORY | | + + + + + + | BILIRUBIN, | 0.6 | 0.1 - 1.5 mg/dL | [facility] | | | TOTAL | | | LABORATORY | | + + + + + + | ALK PHOS | 91 | 35 - 115 U/L | [facility] | | | | | | LABORATORY | | + + + + + + | AST | 19 | 10 - 45 U/L | [facility] | | | | | | LABORATORY | | + + + + + + | ALT | 22 | 10 - 65 U/L | [facility] | | | | | | LABORATORY | | + + + + + + | Estimated | >60Comment: GFR <60: | >60 | [facility] | | | GFR | CHRONIC KIDNEY DISEASE, | mL/min/1.73m2 | LABORATORY | | | | IF FOUND OVER A 3 MONTH | | | | | | PERIOD.GFR <15: KIDNEY | | | | | | FAILURE.FOR | | | | | | AMERICANS, MULTIPLY THE | | | | | | CALCULATED GFR BY | | | | | | 1.210.This eGFR is | | | | | | calculated using the | | | | | | MDRD IDMS traceable | | | | | | equation.Testing | | | | | | performed at [facility];[address] | | | | | | [facility];[place], [place] | | | | | | [id number] | | | | + + + + + + + + | Specimen | + + | Blood | + + + + + + + | Performing | Address | City/State/Zipcode | Phone Number | | Organization | | | | + + + + + | [facility] | [address] | [place] [address] | [phone] | + + + + + CBC with Differential (10/24/2019 9:37 AM PDT) + + + + + + | Component | Value | Ref Range | Performed | Pathologist | | | | | At | Signature | + + + + + + | WBC | 4.74 | 3.80 - 11.00 | [facility] | | | | | K/uL | LABORATORY | | + + + + + + | Red Blood | 5.56 | 4.20 - 5.70 | [facility] | | | Cells | | M/uL | LABORATORY | | + + + + + + | Hemoglobin | 16.2 | 13.2 - 17.0 | [facility] | | | | | g/dL | LABORATORY | | + + + + + + | Hematocrit | 46.2 | 39.0 - 50.0 % | [facility] | | | | | | LABORATORY | | + + + + + + | MCV | 83.1 | 80.0 - 100.0 fl | [facility] | | | | | | LABORATORY | | + + + + + + | MCH | 29.1 | 27.0 - 34.0 pg | [facility] | | | | | | LABORATORY | | + + + + + + | MCHC | 35.1 | 32.0 - 35.5 | [facility] | | | | | g/dL | LABORATORY | | + + + + + + | RDW-SD | 36.7 (L) | 37 - 53 fl | [facility] | | | | | | LABORATORY | | + + + + + + | Platelet | 208 | 150 - 400 K/uL | [facility] | | | Count | | | LABORATORY | | + + + + + + | MPV | 10.5Comment: NO NORMAL | fl | [facility] | | | | RANGE ESTABLISHED | | LABORATORY | | + + + + + + | Diff Type | AUTOMATED | | [facility] | | | | | | LABORATORY | | + + + + + + | % nRBC | 0.0 | 0 /100WBC | [facility] | | | | | | LABORATORY | | + + + + + + | % | 54.90 | % | [facility] | | | Neutrophils | | | LABORATORY | | + + + + + + | IMMATURE | 0.20 | % | [facility] | | | GRANULOCYTE | | | LABORATORY | | + + + + + + | % | 32.50 | % | [facility] | | | Lymphocytes | | | LABORATORY | | + + + + + + | Monocyte % | 10.50 | % | [facility] | | | | | | LABORATORY | | + + + + + + | Eosinophils | 1.30 | % | [facility] | | | % | | | LABORATORY | | + + + + + + | Basophils % | 0.60 | % | [facility] | | | | | | LABORATORY | | + + + + + + | Neutrophils | 2.60 | 1.90 - 7.40 | [facility] | | | , Absolute | | K/uL | LABORATORY | | + + + + + + | IMMATURE | 0.01Comment: NOTE NEW | 0.00 - 0.07 | [facility] | | | GRANS AB | REFERENCE RANGE | K/uL | LABORATORY | | + + + + + + | Absolute | 1.54 | 1.00 - 3.90 | [facility] | | | Lymphocytes | | K/uL | LABORATORY | | + + + + + + | Absolute | 0.50 | 0.00 - 0.80 | [facility] | | | Monocytes | | K/uL | LABORATORY | | + + + + + + | Eosinophils | 0.06 | 0.00 - 0.50 | [facility] | | | , Absolute | | K/uL | LABORATORY | | + + + + + + | Basophils, | 0.03Comment: Testing | 0.00 - 0.10 | [facility] | | | Absolute | performed at [facility];[address] | K/uL | LABORATORY | | | | [facility];[place], [place] | | | | | | [address] | | | | + + + + + + + + | Specimen | + + | Blood | + + + + + + + | Performing | Address | City/State/Zipcode | Phone Number | | Organization | | | | + + + + + | [facility] | [address] | [place] [address] | [phone] | + + + + + documented in this encounter Visit Diagnoses + + | Diagnosis | + + | Observed seizure-like activity (HCC) - Primary Other convulsions | + + | Chronic bilateral low back pain with bilateral sciatica | + + documented in this encounter Administered Medications + +--------+ +------+------+------+ | Medication Order | MAR | Action | Dose | Rate | Site | | | Action | Date | | | | + +--------+ +------+------+------+ | HYDROmorphone (DILAUDID) | Given | 10/24/19 | 1 mg | | | | injection 1 mg 1 mg, | | 20 9:41 | | | | | Intravenous, EVERY 1 HOUR PRN, | | AM PDT | | | | | Pain, Starting Wed10/24/19 at | | | | | | | 0936, For 2 doses | | | | | | + +--------+ +------+------+------+ +---+---+ | | | +---+---+ + +-------+ +-------+---+---+ | ketorolac (TORADOL) injection | Given | 10/24/19 | 15 mg | | | | 15 mg 15 mg, Intravenous, ONCE, | | 20 11:19 | | | | | 10/24/19 at 1115, For 1 dose | | AM PDT | | | | + +-------+ +-------+---+---+ +---+---+ | | | +---+---+ + +-------+ +------+---+---+ | LORazepam (ATIVAN) injection 1 | Given | 10/24/19 | 1 mg | | | | mg 1 mg, Intravenous, ONCE, Tue | | 20 9:41 | | | | | 10/24/19 at 0940, For 1 dose | | AM PDT | | | | + +-------+ +------+---+---+ +---+---+ | | | +---+---+ + +-------+ +------+---+---+ | ondansetron (ZOFRAN) injection | Given | 10/24/19 | 4 mg | | | | 4 mg 4 mg, Intravenous, ONCE, | | 20 9:45 | | | | | 10/24/19 at 0950, For 1 dose | | AM PDT | | | | + +-------+ +------+---+---+ +---+---+ | | | +---+---+ documented in this encounter
--- OUTSIDE RECORDS SUMMARY | ~2019-11-25 | XMS | Encounter Summary ---
Demographics + + + | Address | [address] | | | [place] [address] | + + + | Home Phone | | + + + | Preferred Language | Unknown | + + + | Marital Status | Unmarried Domestic Partner | + + + | Scientology Affiliation | NON | + + + | Race | White | + + + | Ethnic Group | Not or | + + + Author + + + | Author | [facility] | + + + | Organization | [facility] | + + + | Address | Unknown | + + + | Phone | Unavailable | + + + Support + + + + + | Name | Relationship | Address | Phone | + + + + + | Gabriel Greenberg | ECON | [address] | | | | | [place] | | | | | [address] | | + + + + + Care Team Providers + +------+ + | Care Acquisition Associate Name | Role | Phone | + +------+ + | Jax Cabrera MD | PCP | | + +------+ + Reason for Visit + + + | Reason | Comments | + + + | Medication Questions | | + + + Encounter Details +--------+ + + + + | Date | Type | Department | Care Team | Description | +--------+ + + + + | 06/30/ | Telephone | [facility] | Fred, | Medication Questions | | 2017 | | Department | [facility] | | | | | | [address] | | | | | | [place], | | | | | | [place] [address] | | | | | | [phone] | | | | | | | [...]
--- OUTSIDE RECORDS SUMMARY | ~2019-11-25 | XMS | Encounter Summary ---
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 Name | Role | Phone | + +------+ + PCP | Unavailable | + +------+ + Encounter Details +--------+ + + + + | Date | Type | Department | Care Team | Description | +--------+ + + + + | 08/26/ | Hospital | [facility] | [facility] | | | 2001 | Encounter | [facility] | [facility] | [place] [address] | | | | | [address] | [phone] | | | | | [place] | | | | | | [address] | | | | | | [phone] | | | +--------+ + + + [...] [place] | | | | | | [address] | | | | | | | | +--------+---------+ + + + documented as of this encounter Visit Diagnoses Not on filedocumented in this encounter"
--- OUTSIDE RECORDS SUMMARY | ~2019-11-25 | XMS | Encounter Summary ---
Demographics + + + | Address | [address] | | | [place] [address] | + + + | Home Phone | | + + + | Preferred Language | Unknown | + + + | Marital Status | | + + + | [employer]ar[employer] Affiliation | 1013 | + + + | Race | Unknown | + + + | Ethnic Group | Unknown | + + + Author + + + | Author | [facility] | | | and [place] | + + + | Organization | [facility] | | | [...] [place] | | | | | [address] | | + + + + + Care Team Providers + +------+ + | Care Bid Writer Name | Role | Phone | + +------+ + PCP | Unavailable | + +------+ + Encounter Details +--------+ + + + + | Date | Type | Department | Care Team | Description | +--------+ + + + + | 03/13/ | [facility] | [facility] | Tammy Crawford, | Intractable back | | 2012 - | Encounter | [facility] | MD Edward ROGERS | pain; Back pain, | | | | CARE FLOOR [address] | [place], [place] | lumbosacral; Human | | 03/16/ | | [address] | [id number] | immunodeficiency | | 2011 | | [place], [place] | | virus (HIV) disease | | | | [address] | | (HCC); IBS | | | | [phone] | | (irritable bowel | | | | | | syndrome); Seizures | | | | | | (HCC); Essential | | | | | | hypertension, | | | | | | benign; Hepatitis C | | | | | | virus infection | +--------+ + + + + Social [...] + documented as of this encounter Discharge Summaries Chelo Mckee MD - 03/16/2012 11:19 AM PDT Discharge Summaries by Chelo Mckee MD at 03/16/12 1119 Author: Chelo Mckee MD Service: Hospitalist Author Type: Physician Filed: 03/16/12 1123 Date of Service: 03/16/121118 Status: Signed Special Collections Librarian: Chelo Mckee MD (Physician) [facility] Service: Hospitalist Physician Discharge Summary Pt: Bradley Giles AGE/SEX: 46 y.o. male ROOM: 44/4448-1 PCP: PER PT NONE : 1965 Admit date: 03/13/2012 Discharge date and time: 03/16/2012 11:19 AM Admitting Physician: Tammy Crawford MD Discharge Physician: Chelo Mckee MD Consults: Dr. Dong Primary Discharge Diagnoses: Human immunodeficiency virus (HIV) disease [042] Essential hypertension, benign [401.1] Seizures [780.39] IBS (irritable bowel syndrome) [564.1] Intractable back pain [724.5] Back pain, lumbosacral [724.2] Secondary Discharge Diagnoses: Hep C Discharged Condition: stable Significant Diagnostic Studies: MRI Back 1. Moderate diffuse disk bulge at L5-S1 with mild bilateral neural foraminal narrowing appe ars unchanged. 2. Mild diffuse disk bulge at L4-L5. New moderate left broad-based disk protrusion at the l eft foraminal aspect resulting in moderate left neural foraminal narrowing. The right neural foramen appears patent. No central stenosis. 3. No acute bone findings are seen. Right L5 Transforaminal Lumbar Epidural Steroid Injection under fluoroscopic guidance. HPI and Hospital Course: The patient is a 46 y.o. male with significant past medical history of HTN, HIV, Seizure DO in the past HO Hep C came with Acute on Chronic back pain due to disk bulge Back Pain: I DW Dr. Knox and she reviewed the MRI and she said no surgical intervention required. DR Jannet Dong and he did Right L5 Transforaminal Lumbar Epidural Steroid Injection under fluoros copic guidance. Seizure DO: Continue with Depokote . He will see his neurology that what he told me and he will take c are of his Depakote dose. EEG did not reveal seizure activity He had back pain with initial releif in pain but had pain again after PT but at rest he is getting betetr but Had no CP, SOB, N/V, Diarrhea, Abdominal pain or PALENCIA. No constipation or c hange in bowel habits. No orthopnea or PND. Appetite is good without abdominal bloating. No cough or fever. No dizziness, lightheadedness or any symptoms suggestive of stroke. Risk of Narcotics Explained to the patient which include but not limited to narcotic depend ency, respiratory depressing and developing tolerence Discharge Vitals: Filed Vitals: 03/16/12 0012 03/16/12 0420 03/16/12 0732 03/16/12 1100 BP: 105/59 129/83 158/95 154/99 Pulse: 82 76 86 88 Temp: 98.1 F (36.7 C) 97.9 F (36.6 C) 98.5 F (36.9 C) 98.1 F (36.7 C) TempSrc: Oral Oral Oral Oral Resp: 16 16 18 18 Height: Weight: 75 kg (165 lb 5.5 oz) SpO2: 94% 97% 93% 96% Discharge Exam: Constitutional: Alert and oriented to person, place, and time. Appears well-developed and w ell-nourished. Cardiovascular: Normal rate, regular rhythm, normal heart sounds with S1 and S2 and intact distal pulses. Exam reveals no gallop and no friction rub. No murmur heard. Pulmonary/Chest: Effort normal and breath sounds normal. No stridor. No respiratory distres s. no wheezes. no rales. exhibits no tenderness. Abdominal: Soft. Bowel sounds are normal. exhibits no distension and no mass. There is no t enderness. There is no rebound and no guarding. Musculoskeletal: Normal range of motion.exhibits no tenderness. exhibits no edema. Neurological: Alert and oriented to person, place, and time. Has normal reflexes. display s normal reflexes. No cranial nerve deficit. Exhibits normal muscle tone. Coordination norm al. Skin: Skin is warm and dry. No rash noted. No erythema. No pallor. Psychiatric: Has a normal mood and affect. Behavior is normal. Judgment normal. LABS: Lab 03/14/12 0540 03/13/12 1520 WBC 5.0 4.6 HGB 15.1 15.1 HCT 44.1 43.8 PLT 130* 134* NEUTOPHILPCT 59.8 47.9 MONOPCT 7.6 7.9 Lab 03/14/12 0540 03/13/12 1520 NA 139 140 K 4.0 3.9 CL 103 105 CO2 29 28 BUN 23 15 CREATININE 1.10 0.91 CALCIUM -- -- PROT -- 7.3 BILITOT -- 0.9 ALKPHOS -- -- ALT -- 139* AST -- 56* GLUCOSE -- -- Phosphorus: No results found for this basename: PHOS No components found with this basename: LABALBU:3 No results found for this basename: M in the last 168 hours No results found for this basename: AMYLASE:3 in the last 168 hours No results found for this basename: PHART:3,PO2ART:3,HJZ4XRA:3,A1LDUFLV:3,BEART:3 in the la 168 hours No results found for this basename: APTT:3,INR:3,PTT:3 in the last 168 hours No results found for this basename: TSH:3,T3FREE:3,FREET4:3 in the last 168 hours No results found for this basename: CKTOTAL:3,TROPONINI:3,TROPONINT:3,CKMBINDEX:[address] 168 hours Disposition: Final discharge disposition not confirmed Patient Instructions: Current Discharge Medication List CONTINUE these medications which have NOT CHANGED Details ALBUTEROL IN Inhale into the lungs. dexlansoprazole (DEXILANT) 60 MG capsule Take 60 mg by mouth every morning before breakfas t. DIPHENOXYLATE-ATROPINE PO Take by mouth 4 (four) times daily. divalproex (DEPAKOTE) 250 MG EC tablet Take 250 mg by mouth 2 (two) times daily. duloxetine (CYMBALTA) 30 MG capsule Take 30 mg by mouth daily. emtricitabine-tenofovir (TRUVADA) 200-300 MG per tablet Take 1 tablet by mouth daily. hydrocodone-acetaminophen (NORCO) 10-325 MG per tablet Take 1 tablet by mouth every 8 (eig ht) hours as needed. Loperamide HCl (ANTI-DIARRHEAL PO) Take by mouth. loratadine (CLARITIN) 10 MG tablet Take 10 mg by mouth daily. naproxen (NAPROSYN) 500 MG tablet Take 500 mg by mouth 2 (two) times daily with meals. ondansetron (ZOFRAN) 8 MG tablet Take 8 mg by mouth every 8 (eight) hours as needed. pregabalin (LYRICA) 150 MG capsule Take 150 mg by mouth 2 (two) times daily. raltegravir (ISENTRESS) 400 MG tablet Take 400 mg by mouth 2 (two) times daily. salmeterol (SEREVENT) 50 MCG/DOSE diskus inhaler Inhale 1 puff into the lungs 2 (two) time s daily. topiramate (TOPAMAX) 25 MG tablet Take 25 mg by mouth 2 (two) times daily. trazodone (DESYREL) 100 MG tablet Take 100 mg by mouth nightly. promethazine (PHENERGAN) 25 MG tablet Take 25 mg by mouth every 8 (eight) hours as needed. sumatriptan (IMITREX) 100 MG tablet Take 100 mg by mouth every 8 (eight) hours as needed. Indications: Migraine Headache STOP taking these medications non formulary medication sulfamethoxazole-trimethoprim (BACTRIM DS) 800-160 MG per tablet Activity: activity as tolerated Diet: regular diet Wound Care: not applicable Discharge took more than 35 minutes, to include final examination, discussion of admission, and preparation of prescriptions, instructions for ongoing care, follow up and dictation of summary. Follow-up with PCP [address] Dong 2 week Signed: CHELO MCKEE MD, FACP 03/16/2012 11:19 AM documented in this enc ounter Medications at Time of Discharge + + [...] + +---------+ + + | | Take 10-300 mg by | | 0 | 05/21/19 | | | Hydrocodone-Acetamin | mouth every 4 hours | | | 12 | 6 | | ophen 10-300 MG TABS | as needed. | | | | | + + + +---------+ + + | promethazine | Take 25 mg by mouth | | 0 | 06/03/19 | | | (PHENERGAN) 25 mg | every 8 hours as | | | 12 | 6 | | tablet | needed. | | | | | + + + +---------+ + + | raltegravir | Take 400 mg by mouth | | 0 | 02/02/20 | | | (ISENTRESS) 400 mg | 2 times daily. | | | 12 | 6 | | tablet | | | | | | + + + +---------+ + + | telmisartan | Take 40 mg by mouth | | 0 | 02/02/20 | | | (MICARDIS) 40 mg | Daily. | | | 12 | 6 | | tablet | | | | | | + + + +---------+ + + | topiramate | Take 25 mg by mouth | | 0 | 02/02/20 | | | (TOPAMAX) 25 mg | Daily. | | | 12 | 6 | | tablet | | | | | | + + + +---------+ + + documented as of this encounter Progress Notes Conversion Transaction, Provider Unknown - 03/16/2012 2:41 PM PDTFormatting of this note m ight be different from the original. Progress Notes by Bhavya Ortiz RN at 03/16/121440 Author: Bhavya Ortiz RN Service: (none) Author Type: Registered Nurse Filed: 03/16/121441 Date of Service: 03/16/121440 Status: Signed Special Collections Librarian: Bhavya Ortiz RN (Registered Nurse) Patient signed and voiced understanding of discharge instructions and medications. Home wit h caregiver via private vehicle. BHAVYA ORTIZ RN 03/16/2012 oster Catherine MSW - 03/16/2012 11:36 AM PDT Progress Notes by DEO Reagan at 03/16/121135 Author: DEO Reagan Service: (none) Author Type: Heavy Truck Driver Filed: 03/16/12 3279 Date of Service: 03/16/121135 Status: Signed Special Collections Librarian: DEO Reagan (Heavy Truck Driver) Patient's caregiver has no gas or money to come turkey picker patient per his report. He is atte mpting to find friends to pick patient up. ROSA provided patient with $30 gas voucher to give to whomever is able to assist with transportation. has dc'd patient. Skyler Constantino M D - 03/16/2012 8:10 AM PDT Progress Notes by Skyler Dong MD at 03/16/12809 Author: Skyler Dong MD Service: Interventional Pain Management Author Type: Physic brian Filed: 03/16/12812 Date of Service: 03/16/12809 Status: Signed Special Collections Librarian: Skyler Dong MD (Physician) [facility] Service: Interventional Pain Management Pre-Operative History & Physical Interval Update Significant clinical changes have occurred as noted: this patient underwent a right L5 tra nsforaminal lumbar epidural steroid injection last evening. This morning he reports very sig nificant pain relief. Prior to the procedure the patient rated his pain as 10/10 he currentl y rates his pain at about 3/10. He denies any new symptoms specifically no new bowel or blad marily problems. So far the patient is pleased with the results of the injection. Plan: From a standpoint the patient's activities can be advanced as tolerated. Should his r adicular symptoms return in the future he should contact [facility] for an appointment. SKYLER DONG MD 03/16/2012 *CORE MEASURES REMINDER: If the patient has a known or suspected infection prior to surger y, please add diagnosis to the problem list (consider: Infection 136.9). Chelo Rodriguez MD - 03/15/2012 9:26 AM PDT Progress Notes by Chelo Mckee MD at 03/15/12925 Author: Chelo Mckee MD Service: Hospitalist Author Type: Physician Filed: 03/15/12929 Date of Service: 03/15/12925 Status: Signed Special Collections Librarian: Chelo Mckee MD (Physician) [facility] Service: Hospitalist Progress Note Pt: Bradley Giles AGE/SEX: 46 y.o. male ROOM: [facility]/4448-1 : 1965 PCP: PER PT NONE ADMIT DATE: 03/13/2012 TODAY'S DATE: 03/15/2012 Hospital Day/Hospital Course: LOS: 2 days The patient is a 46 y.o. male with significant past medical history of HTN, HIV, Seizure DO in the past HO Hep C came with Acute on Chronic back pain due to disk bulg MRI Back 1. Moderate diffuse disk bulge at L5-S1 with mild bilateral neural foraminal narrowing appe ars unchanged. 2. Mild diffuse disk bulge at L4-L5. New moderate left broad-based disk protrusion at the l eft foraminal aspect resulting in moderate left neural foraminal narrowing. The right neural foramen appears patent. No central stenosis. 3. No acute bone findings are seen. SUBJECTIVE: Patient seen and examine. Complaint of back pain still there and unable to move without nilo n. No chest pain, SOB, PALENCIA. No cough on recumbency. Had no orthopnea or PND. No Abdominal pa in, N/V or fever. Still feeling tired and fatigued. No dizziness or lightheadedness. Scheduled Medications: diphenoxylate-atropine 1 tablet Oral 4x Daily divalproex 500 mg Oral BID duloxetine 30 mg Oral Daily emtricitabine-tenofovir 1 tablet Oral Daily heparin (porcine) 5,000 Units Subcutaneous Q8H loratadine 10 mg Oral Daily pantoprazole 40 mg Oral QAM AC pregabalin 150 mg Oral BID raltegravir 400 mg Oral BID salmeterol 1 puff Inhalation BID sulfamethoxazole-trimethoprim 1 tablet Oral BID topiramate 25 mg Oral BID trazodone 100 mg Oral Nightly DISCONTD: divalproex 250 mg Oral BID Continuous Infusions PRN Medications acetaminophen, acetaminophen, albuterol, HYDROmorphone, HYDROmorphone, loperamide, lorazepa m, lorazepam, metoclopramide, ondansetron, ondansetron, polyethylene glycol, promethazine, s odium chloride, zolpidem Allergy: No Known Allergies OBJECTIVE: Vitals: Patient Vitals for the past 24 hrs: BP Temp Temp src Pulse Resp SpO2 Weight 03/15/12 0837 122/79 mmHg 97.9 F (36.6 C) Oral 97 16 96 % - 03/15/12 0414 150/87 mmHg 98 F (36.7 C) Axillary 66 20 94 % 79 kg (174 lb 2.6 oz) 03/14/12 2323 156/86 mmHg - - 95 20 95 % - 03/14/12 1925 131/83 mmHg 97.6 F (36.4 C) Axillary 77 18 98 % - 03/14/12 1552 138/88 mmHg 97.8 F (36.6 C) Axillary 69 20 97 % - I&O Detailed Table: Intake/Output Summary (Last 24 hours) at 03/15/12 09 Last data filed at 03/15/12 0414 Gross per 24 hour Intake 1030 ml Output 0 ml Net 1030 ml Patient Vitals for the past 96 hrs: Weight 03/15/12 0414 79 kg (174 lb 2.6 oz) 03/13/12 2135 73.6 kg (162 lb 4.1 oz) 03/13/12 1622 81.647 kg (180 lb) 03/13/12 1412 81.647 kg (180 lb) Hemodynamics Last 24hrs: Physical Examination: Constitutional: Alert and oriented to person, place, and time. Appears well-developed and w ell-nourished. HEENT: Neck supple, no JVD, non icteric sclera. Cardiovascular: Normal rate, regular rhythm, normal heart sounds with S1 and S2, and intact distal pulses. Exam reveals no gallop and no friction rub. No murmur heard. Pulmonary/Chest: Effort normal and breath sounds normal. No stridor. No respiratory distres s. no wheezes. no rales. exhibits no tenderness. Abdominal: Soft. Bowel sounds are normal. exhibits no distension and no mass. There is no t enderness. There is no rebound and no guarding. Extremeties/Musculoskeletal: Normal range of motion.exhibits no tenderness. exhibits no ed ana maria. Neurological: Alert and oriented to person, place, and time. Has normal reflexes. display s normal reflexes. No cranial nerve deficit. Exhibits normal muscle tone. Coordination norm al. Skin: Skin is warm and dry. No rash noted. No erythema. No pallor. Psychiatric: Has a normal mood and affect. Behavior is normal. Judgment normal. LABS: Lab 03/14/12 0540 03/13/12 1520 WBC 5.0 4.6 HGB 15.1 15.1 HCT 44.1 43.8 PLT 130* 134* NEUTOPHILPCT 59.8 47.9 MONOPCT 7.6 7.9 Lab 03/14/12 0540 03/13/12 1520 NA 139 140 K 4.0 3.9 CL 103 105 CO2 29 28 BUN 23 15 CREATININE 1.10 0.91 CALCIUM -- -- PROT -- 7.3 BILITOT -- 0.9 ALKPHOS -- -- ALT -- 139* AST -- 56* GLUCOSE -- -- PROBLEM LIST Principal Problem: *Back pain, lumbosacral Active Problems: Human immunodeficiency virus (HIV) disease Hepatitis C virus infection Essential hypertension, benign Seizures IBS (irritable bowel syndrome) ASSESSMENT & PLAN The patient is a 46 y.o. male with significant past medical history of HTN, HIV, Seizure DO in the past Hep C came with Acute on Chronic back pain due to disk bulge Back Pain: I DW Dr. Knox and she reviewed the MRI and she said no surgical intervention required. I DW DR. Dong and he he is planing to have epidural steroids. Seizure DO: EEG with no seizure activity Depokote dose was increase due to seizure yesterday. HIV is being managed by ID in [facility] IBS stable CHELO MCKEE MD, FACP 03/15/2012 9:[address] MD - 12:43 PM PDT Progress Notes by Chelo Mckee MD at 03/14/12 1243 Author: Chelo Mckee MD Service: Hospitalist Author Type: Physician Filed: 03/14/12 8838 Date of Service: 03/14/12 1243 Status: Signed Special Collections Librarian: Chelo Mckee MD (Physician) [facility] Service: Hospitalist Progress Note Pt: Bradley Giles AGE/SEX: 46 y.o. male ROOM: [address] [place] [address] : 1965 PCP: PER PT NONE ADMIT DATE: 03/13/2012 TODAY'S DATE: 03/14/2012 Hospital Day/Hospital Course: LOS: 1 day The patient is a 46 y.o. male with significant past medical history of HTN, HIV, Seizure DO in the past HO Hep C came with Acute on Chronic back pain due to disk bulg MRI Back 1. Moderate diffuse disk bulge at L5-S1 with mild bilateral neural foraminal narrowing appe ars unchanged. 2. Mild diffuse disk bulge at L4-L5. New moderate left broad-based disk protrusion at the l eft foraminal aspect resulting in moderate left neural foraminal narrowing. The right neural foramen appears patent. No central stenosis. 3. No acute bone findings are seen. SUBJECTIVE: Patient seen and examine. Complaint of back pain still there and unable to move without nilo n. No chest pain, SOB, PALENCIA. No cough on recumbency. Had no orthopnea or PND. No Abdominal pa in, N/V or fever. Still feeling tired and fatigued. No dizziness or lightheadedness. Scheduled Medications: diphenoxylate-atropine 1 tablet Oral 4x Daily divalproex 250 mg Oral BID duloxetine 30 mg Oral Daily emtricitabine-tenofovir 1 tablet Oral Daily heparin (porcine) 5,000 Units Subcutaneous Q8H HYDROmorphone HYDROmorphone 1 mg Intravenous Once HYDROmorphone 1 mg Intravenous Once ketorolac 30 mg Intravenous Once loratadine 10 mg Oral Daily ondansetron 4 mg Intravenous Once pantoprazole 40 mg Oral QAM AC pregabalin 150 mg Oral BID raltegravir 400 mg Oral BID salmeterol 1 puff Inhalation BID sulfamethoxazole-trimethoprim 1 tablet Oral BID topiramate 25 mg Oral BID trazodone 100 mg Oral Nightly Continuous Infusions PRN Medications acetaminophen, acetaminophen, albuterol, gadobenate dimeglumine, HYDROmorphone, HYDROmorpho ne, loperamide, lorazepam, lorazepam, ondansetron, ondansetron, polyethylene glycol, prometh azine, sodium chloride, zolpidem Allergy: No Known Allergies OBJECTIVE: Vitals: Patient Vitals for the past 24 hrs: BP Temp Temp src Pulse Resp SpO2 Height Weight 03/14/12 0746 142/89 mmHg 97.6 F (36.4 C) Oral 69 20 94 % - - 03/14/12 0415 136/92 mmHg 97.7 F (36.5 C) Oral 71 16 94 % - - 03/13/12 2347 127/81 mmHg 97.8 F (36.6 C) Oral 63 16 95 % - - 03/13/12 2227 154/94 mmHg - - - - - - - 03/13/12 2135 180/104 mmHg 97.6 F (36.4 C) Oral 63 - 99 % 1.676 m (5' 5.98") 73.6 kg ( 162 lb 4.1 oz) 03/13/12 2108 150/90 mmHg - - 59 16 96 % - - 03/13/12 2049 137/88 mmHg 97 F (36.1 C) Oral 55 20 96 % - - 03/13/12 1928 161/85 mmHg 97.9 F (36.6 C) Oral 60 20 96 % - - 03/13/12 1814 126/83 mmHg - - 68 14 98 % - - 03/13/12 1709 125/81 mmHg - - 62 14 99 % - - 03/13/12 1622 - - - - - - 1.676 m (5' 6") 81.647 kg (180 lb) 03/13/12 1412 157/100 mmHg 97.7 F (36.5 C) Oral 75 16 99 % 1.676 m (5' 6") 81.647 kg (180 lb) I&O Detailed Table: Intake/Output Summary (Last 24 hours) at 03/14/12 1243 Last data filed at 03/14/12 0415 Gross per 24 hour Intake 460 ml Output 0 ml Net 460 ml Patient Vitals for the past 96 hrs: Weight 03/13/122134 73.6 kg (162 lb 4.1 oz) 03/13/12 1622 81.647 kg (180 lb) 03/13/12 1412 81.647 kg (180 lb) Hemodynamics Last 24hrs: Physical Examination: Constitutional: Alert and oriented to person, place, and time. Appears well-developed and w ell-nourished. HEENT: Neck supple, no JVD, non icteric sclera. Cardiovascular: Normal rate, regular rhythm, normal heart sounds with S1 and S2, and intact distal pulses. Exam reveals no gallop and no friction rub. No murmur heard. Pulmonary/Chest: Effort normal and breath sounds normal. No stridor. No respiratory distres s. no wheezes. no rales. exhibits no tenderness. Abdominal: Soft. Bowel sounds are normal. exhibits no distension and no mass. There is no t enderness. There is no rebound and no guarding. Extremeties/Musculoskeletal: Normal range of motion.exhibits no tenderness. exhibits no ed ana maria. Neurological: Alert and oriented to person, place, and time. Has normal reflexes. display s normal reflexes. No cranial nerve deficit. Exhibits normal muscle tone. Coordination norm al. Skin: Skin is warm and dry. No rash noted. No erythema. No pallor. Psychiatric: Has a normal mood and affect. Behavior is normal. Judgment normal. LABS: Lab 03/14/12 0540 03/13/12 1520 WBC 5.0 4.6 HGB 15.1 15.1 HCT 44.1 43.8 PLT 130* 134* NEUTOPHILPCT 59.8 47.9 MONOPCT 7.6 7.9 Lab 03/14/12 0540 03/13/12 1520 NA 139 140 K 4.0 3.9 CL 103 105 CO2 29 28 BUN 23 15 CREATININE 1.10 0.91 CALCIUM -- -- PROT -- 7.3 BILITOT -- 0.9 ALKPHOS -- -- ALT -- 139* AST -- 56* GLUCOSE -- -- PROBLEM LIST Principal Problem: *Back pain, lumbosacral Active Problems: Human immunodeficiency virus (HIV) disease Hepatitis C virus infection Essential hypertension, benign Seizures IBS (irritable bowel syndrome) ASSESSMENT & PLAN The patient is a 46 y.o. male with significant past medical history of HTN, HIV, Seizure DO in the past Hep C came with Acute on Chronic back pain due to disk bulge Back Pain: Left a message for Dr. Knox to see if there is any surgical intervention required. I DW DR. Dong and he aid he is going to see him. Seizure DO: Last seizure was 2 days ago and he again had seizure this morning. Will order EEG and incr ease the dose of antiseizure. HIV is being managed by ID in [facility] IBS stable CHELO MCKEE MD, FACP 03/14/2012 12:43 PM onversion Transaction , Provider Unknown - 03/13/2012 10:27 PM PDT Progress Notes by Danial Vee RPH at 03/13/122226 Author: Danial Vee RPH Service: (none) Author Type: Pharmacist Filed: 03/13/122226 Date of Service: 03/13/122226 Status: Signed Special Collections Librarian: Danial Vee RPH (Pharmacist) Note ccl 92.5ml/min meds reviewed Pharmacy will follow [facility] 2226 docume nted in this encounter H&P Notes Tammy Crawford MD - 03/13/2012 7:52 PM PDTFormatting of this note might be different f rom the original. H&P by Tammy Crawford MD at 03/13/121951 Author: Tammy Crawford MD Service: Hospitalist Author Type: Physician Filed: 03/13/122034 Date of Service: 03/13/121951 Status: Signed Special Collections Librarian: Tammy Crawford MD (Physician) [facility] Service: Hospitalist Admission History & Physical Pt: Bradley Giles AGE/SEX: 46 y.o. male ROOM: PCP: PER PT NONE : 1965 TODAY'S DATE: 03/13/2012 Date of Admission: 03/13/2012 Chief Complaint: Back pain History of Present Illness: The patient is a 46 y.o. male with significant past medical history of Past Medical History Diagnosis Date Hypertension Joint pain HIV infection 1988 Hepatitis C 2001 Seizures Other chronic pain back pain IBS (irritable bowel syndrome) who presents with worsening back pain. He has been having back pain for the past [address] Woody Martinez (PCP/ID) has been managing this with physical therapy and pain contro l with vicodin. He has been requiring more vicodin over the past month and e is not taking u p to 4 tablets daily instead of the prescribed 2-3 tabs daily of 10-325mg vicodin. He finish ed 18 weeks of therapy recently who told him that he easily gets "out of alignment". He cont inues to have trouble walking and he is unable to bend over even slightly. He has pain shoot ing up from his ankles to his lower back each time he walks. He was referred to [facility] for possible epidural/steroid injections however this was still being arranged. He says his pain is usually 3-4/10. Today, he got up and turned around too quickly and he hit the edge of the door and fell on the floor. Since then, his pain has worsened and is 7-8/10 even after pain medications being given in the ED. He is also being treated for Hep C which recently became active and HIV with a recent drop in CD4 count to 90s and an increase in viral count to 1250. ROS: (+) nausea, vomiting, decreased appetite, difficulty sleeping, back pain, dizziness, headac he, focal weakness, chest pain chronic No fevers, chills, fatigue No cough, colds, shortness of breath, palpitations. No nausea, vomiting, abdominal pain, diarrhea, constipation, dysuria, frequency, hematuria, hematochezia and melena. PMHx: Past Medical History Diagnosis Date Hypertension Joint pain HIV infection 1988 Hepatitis C 2001 Seizures Other chronic pain back pain IBS (irritable bowel syndrome) PSHx: Past Surgical History Procedure Date Cholecystectomy Unlisted procedure arthroscopy Hernia repair hiatal Tonsillectomy Prior To admission Meds: Prior to Admission medications Medication Sig Start Date End Date Taking? Authorizing Provider ALBUTEROL IN Inhale into the lungs. Yes Historical Provider dexlansoprazole (DEXILANT) 60 MG capsule Take 60 mg by mouth every morning before breakfast . Yes Historical Provider DIPHENOXYLATE-ATROPINE PO Take by mouth 4 (four) times daily. Yes Historical Provider divalproex (DEPAKOTE) 250 MG EC tablet Take 250 mg by mouth 2 (two) times daily. Yes [facility] Provider duloxetine (CYMBALTA) 30 MG capsule Take 30 mg by mouth daily. Yes Historical Provider emtricitabine-tenofovir (TRUVADA) 200-300 MG per tablet Take 1 tablet by mouth daily. Y es Historical Provider hydrocodone-acetaminophen (NORCO) 10-325 MG per tablet Take 1 tablet by mouth every 8 (eigh t) hours as needed. Yes Historical Provider Loperamide HCl (ANTI-DIARRHEAL PO) Take by mouth. Yes Historical Provider loratadine (CLARITIN) 10 MG tablet Take 10 mg by mouth daily. Yes Historical Provider naproxen (NAPROSYN) 500 MG tablet Take 500 mg by mouth 2 (two) times daily with meals. Yes Historical Provider ondansetron (ZOFRAN) 8 MG tablet Take 8 mg by mouth every 8 (eight) hours as needed. Ye s Historical Provider pregabalin (LYRICA) 150 MG capsule Take 150 mg by mouth 2 (two) times daily. Yes Histor ical Provider promethazine (PHENERGAN) 25 MG tablet Take 25 mg by mouth every 8 (eight) hours as needed. Yes Historical Provider raltegravir (ISENTRESS) 400 MG tablet Take 400 mg by mouth 2 (two) times daily. Yes [facility] Provider salmeterol (SEREVENT) 50 MCG/DOSE diskus inhaler Inhale 1 puff into the lungs 2 (two) times daily. Yes Historical Provider sulfamethoxazole-trimethoprim (BACTRIM DS) 800-160 MG per tablet Take 1 tablet by mouth 2 ( two) times daily. Yes Historical Provider topiramate (TOPAMAX) 25 MG tablet Take 25 mg by mouth 2 (two) times daily. Yes Historic al Provider trazodone (DESYREL) 100 MG tablet Take 100 mg by mouth nightly. Yes Historical Provider Medications scheduled: HYDROmorphone HYDROmorphone 1 mg Intravenous Once HYDROmorphone 1 mg Intravenous Once ketorolac 30 mg Intravenous Once ondansetron 4 mg Intravenous Once Allergies: No Known Allergies Family Hx: History reviewed. No pertinent family history. Social Hx: History Substance Use Topics Smoking status: Never Smoker Smokeless tobacco: Not on file Alcohol Use: No Objective: Vital Signs: BP 161/85 | Pulse 60 | Temp(Src) 97.9 F (36.6 C) (Oral) | Resp 20 | Ht 1.676 m (5' 6") | Wt 81.647 kg (180 lb) | BMI 29.05 kg/m2 | SpO2 96% Physical Exam: Constitutional: Alert and oriented to person, place and time. Appears uncomfortable and is lying on his left side. HEENT: 3mm pupils, moist mucous membranes, pink conjunctivae and anicteric sclerae. No cerv ical lymphadenopathy. Cardiovascular: Normal rate and rhythm. Normal heart sounds with S1 and S2. No murmurs, gal lops or rubs. Pulmonary: Patient is able to speak in full sentences. Breath sounds are clear bilaterally. No wheezing or rales. Abdominal: Soft and non-tender. Bowel sounds are present. No rebound or guarding. No palpab le masses. No fluid wave. Extremities: No edema or cyanosis. Neurological: 4/5 motor strength of the R arm and leg, 5/5 left leg. 100% sensation in all extremities. Severe point tenderness in the R paraspinal area, lumbar region. Skin: Warm and dry. No rashes or open wounds. Psychiatric: Anxious. Data: Lab 03/13/12 1520 WBC 4.6 HGB 15.1 HCT 43.8 PLT 134* NEUTOPHILPCT 47.9 MONOPCT 7.9 Lab 03/13/12 1520 NA 140 K 3.9 CL 105 CO2 28 BUN 15 CREATININE 0.91 CALCIUM -- PROT 7.3 BILITOT 0.9 ALKPHOS -- ALT 139* AST 56* GLUCOSE -- MRI: Initial impression 1. Moderate diffuse disk bulge L5-S1 with mild bilateral neuroforaminal narrowing appears u nchanged . 2. Mild diffuse disk bulge at L4-L5. New moderate moderate left broad-based disk protrusion at the left foraminal aspect resulting in moderate left neuroforaminal narrowing. The right neural foramen appears patent. No central stenosis. 3. No acute bone findings are seen. Read by Theresa Pink MD on Mar 13 2012 6:10PM Problem List: Principal Problem: *Back pain, lumbosacral Active Problems: Human immunodeficiency virus (HIV) disease Hepatitis C virus infection Essential hypertension, benign Seizures IBS (irritable bowel syndrome) Assessment and Plan: Pain management with PRN dilaudid. Patient is already on lyrica. Consider steroid injectio ns if the pain is not improved with activity modification and opioids. Consult petrophysical engineer apy in the AM. Please obtain records from PCP's office. Continue anti-retrovirals and ffup with PCP as scheduled. Resume home medications. Heparin subcutaneous for DVT prophylaxis Patient's old records and labs were reviewed in detail and summarized. Code Status: No Order Primary Care Physician: PER PT NONE Tammy Crawford MD 03/13/2012 8:18 PM documente d in this encounter Consult Notes Skyler Dong MD - 03/14/2012 4:36 PM PDTFormatting of this note might be different fr om the original. Consult* by Skyler Dong MD at 03/14/12 1636 Author: Skyler Dong MD Service: Interventional Pain Management Author Type: Physic brian Filed: 03/14/12 9302 Date of Service: 03/14/121635 Status: Signed Special Collections Librarian: Skyler Dong MD (Physician) Interventional pain management consult request by Dr. Mckee. Consulting physician: Skyler Dong M.D. Chief complaint right her left lower extremity pain and lumbar back pain. 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 He also has right lower extremity pain. This pain has gotten progressively mo re severe. About a week ago he had a severe exacerbation of this pain. His pain was no longe r controlled with hydrocodone/APAP . His lower extremity pain is more severe than his back pain. It is not to the point where the patient can do almost nothing due to severe pain . The patient has been admitted to the hospital for pain control. A lumbar MRI was obtained which shows a stable L5-S1 disc protrusion without proven neural impingement but also an L4- 5 disc bulge with superimposed right L4 neural foraminal protrusion with significant foramin al narrowing. Physical examination: General: Well-developed well-nourished patient in no acute distress. Patient is awake alert and oriented x4. Mood is appropriate. HEENT: NCAT, EOMI, PERRLA. Oropharynx is pink and moist without lesions. Lungs: Clear to auscultation. Heart: Regular rate and rhythm without murmurs gallops or rubs. Abdomen: Soft and nontender, bowel sounds present. Musculoskeletal: Lower extremities-skin and hair growth appear normal. Motor mass, tone an d strength are normal and symmetric with 5/5 strength throughout. Babinskis are downgoing. Neurologic: Cranial nerves II through XII are grossly intact. Memory-intact. Speech is flue nt with no expressive issues. Fund of knowledge is appropriate. Sensation L1-S2 is intact ex cept for slight decrease in the right L4 and L5 distributions. Lumbar spine: Alignment: Normal lumbar lordosis Tenderness to palpation over spinous processes and facets: positive L4-5 and L5-S1. Sciatic notch tenderness: Left-negative; Right-positive. Sacroiliac joints: Tenderness to palpation- Left-Negative; Right -mild right tenderne ss. Range of motion: patient examined while lying in bed. Lying Straight leg raise: Left-negative; Right-+50 with right L5 pain. Fabere's test: Left-negative; Right-negative. Piriformis maneuvers: Left-negative; Right-mildly positive with right leg pain. Gainslain's signs: Left-negative; Right-negative. Impression and plan: Lumbar degenerative disc disease with disc protrusions at L4-5 and L5- S1. The patient has right much greater than left lower extremity radicular pain that has orion led conservative therapy. He is therefore a candidate for lumbar epidural steroid ejection. I will plan to form a right L5 transforaminal lumbar epidural steroid injection under fluoro scopic guidance. Plan, alternatives, risks and potential benefits of the procedure were explained to the pat ient in great detail. The patient understands that there is no guarantee they will get pain relief with this procedure. They also understand that if they do get pain relief that ther e is no way to know how long it will last. They also understand there is procedure itself w hich include but are not limited to infection, abscess, hematoma, nerve damage, paraplegia o r quadriplegia, increased pain, spinal headache, stroke, and side effects from the medicatio ns themselves. The patient wishes to proceed. Dictation performed with [employer] voice recognition software and has been reviewed, even so t here may be some sound alike typographical errors. documented in this encounter ED Notes Conversion Transaction, Provider Unknown - 03/13/2012 9:03 PM PDTFormatting of this note m ight be different from the original. ED Notes by Jia Justin RN at 03/13/122102 Author: Jia Justin RN Service: (none) Author Type: Registered Nurse Filed: 03/13/122103 Date of Service: 03/13/122102 Status: Signed Special Collections Librarian: Jia Justin RN (Registered Nurse) Patient states he has pain 02/23, [place] notified and no new orders Jia Justin RN 03/13/122103 onver martine Transaction, Provider Unknown - 03/13/2012 7:08 PM PDT ED Notes by Jia Justin RN at 03/13/121907 Author: Jia Justin RN Service: (none) Author Type: Registered Nurse Filed: 03/13/121908 Date of Service: 03/13/121907 Status: Signed Special Collections Librarian: Jia Justin RN (Registered Nurse) Urinal given Jia Justin RN 03/13/121908 onver martine Transaction, Provider Unknown - 03/13/2012 4:25 PM PDT ED Notes by Jia Justin RN at 03/13/121624 Author: Jia Justin RN Service: (none) Author Type: Registered Nurse Filed: 03/13/121624 Date of Service: 03/13/121624 Status: Signed Special Collections Librarian: Jia Justin RN (Registered Nurse) Remains in MRI Jia Justin RN 03/13/121624 onver martine Transaction, Provider Unknown - 03/13/2012 2:44 PM PDT ED Notes by Jia Justin RN at 03/13/121443 Author: Jia Justin RN Service: (none) Author Type: Registered Nurse Filed: 03/13/121443 Date of Service: 03/13/121443 Status: Signed Special Collections Librarian: Jia Justin RN (Registered Nurse) MD at bedside. Jia Justin RN 03/13/121443 onver martine Transaction, Provider Unknown - 03/13/2012 2:25 PM PDT ED Notes by Jia Justin RN at 03/13/121424 Author: Jia Justin RN Service: (none) Author Type: Registered Nurse Filed: 03/13/121431 Date of Service: 03/13/121424 Status: Signed Special Collections Librarian: Jia Justin RN (Registered Nurse) Patient transferred from [facility] for MRI of low back, patient states that he has chronic low back pain and this morning he walked in to a door and iliana-njured his low ba ck, prior to arrival he received 3 doses of dilauded of 1mg and arrives with heightening nilo n Jia Justin RN 03/13/121431 Benji Leon MD - 03/13/2012 2:16 PM PDTFormatting of this note might be different from the or iginal. ED Provider Notes by Benji Zheng MD at 03/13/121415 Author: Benji Zheng MD Service: (none) Author Type: Physician Filed: 03/13/122157 Date of Service: 03/13/121415 Status: Signed Special Collections Librarian: Benji Zheng MD (Physician) Related Notes: Related Note by Donny Novoa PA-C (Physician Etl Bi Developer - Certified) filed at 03/13/122049 I have reviewed the note and supervised the mid-level provider. Benji Zheng MD 03/13/122157 Donny Yun PA-C - 03/13/2012 2:16 PM PDT ED Provider Notes by Donny Novoa PA-C at 03/13/121415 Author: Donny Novoa PA-C Service: (none) Author Type: Physician Etl Bi Developer - Certified Filed: 03/13/122049 Date of Service: 03/13/121415 Status: Signed Special Collections Librarian: Donny Novoa PA-C (Physician Etl Bi Developer - Certified) Related Notes: Cosigned by Benji Zheng MD (Physician) filed at 03/13/12 2158 Procedures [facility] Department of Emergency Medicine BP 161/85 | Pulse 60 | Temp(Src) 97.9 F (36.6 C) (Oral) | Resp 20 | Ht 1.676 m (5' 6") | Wt 81.647 kg (180 lb) | BMI 29.05 kg/m2 | SpO2 96% Patient Identification Bradley Giles is a 46 y.o. male. Chief Complaint Chief Complaint Patient presents with Back Pain Back Injury Low back pain. History of Present Illness Bradley Giles is a 46 y.o. with past medical history HIV currently with low CD4 count, hepatit is C, IBS, seizure disorder, HTN, and bulging disc at L5-S1 presents to our ED from [place], [place] due to intractable back pain and reduced rectal tone with expectation to have MRI. Pt states his pain is in low back, worse on right side. He states he was at home and fell and hit wall today. He denies any other injury other than his back currently. Pt states jese sanz has chronic back pain and has seen his primary care doctor, Dr. Mratinez who has had him i n physical therapy and giving hydrocodone, this treatment has helped but since the fall toda y pt states his pain is greatly out of control. Pt states there is pain shooting down both legs, patient denies fever, urinary retention, bowel or bladder incontinence, numbness in gr oin in general or when wiping anus. Denies history of cancer, chronic steroid use, recent o r remote IV drug use, recent surgical procedures, weight loss, or sweating. Pt rates his pain as 10/10 and constant pain. Pt has had 3 doses of IV dilaudid prior to a rrival with minimal relief of his pain. Patient information was obtained from patient. History/Exam limitations: none. Patient presented to the Emergency Department by: Ambulance Past Medical History Diagnosis Date Hypertension Joint pain HIV infection 1988 Hepatitis C 2002 Seizures Other chronic pain back pain IBS (irritable bowel syndrome) Past Surgical History Procedure Date Cholecystectomy Unlisted procedure arthroscopy Hernia repair hiatal Tonsillectomy Prior to Admission medications Not on File No Known Allergies History Social History Marital Status: Single Spouse Name: N/A Number of Children: N/A Years of Education: N/A Occupational History Not on file. Social History Main Topics Smoking status: Never Smoker Smokeless tobacco: Not on file Alcohol Use: No Drug Use: No not for 19 years Sexually Active: Other Topics Concern Not on file Social History Narrative No narrative on file History reviewed. No pertinent family history. Review of Systems Constitutional: Negative for: fever, chills, fatigue, sweats or weight loss Eyes: Negative for: decreased vision or irritated eyes Nose: Negative for: rhinorrhea or bleeding Throat: Negative for: mouth sores Cardiovascular/Respiratory: Negative for: chest pain, shortness of breath, cough Gastrointestinal: Negative for: abdominal pain, vomiting, diarrhea, black or bloody stools Genitourinary: Negative for: dysuria, hematuria, urinary problems Musculoskeletal: Positive for: Back pain as per HPI Skin: Negative for: laceration or lesion Neuro and psych: Negative for: fainting, head injury, seizure, trouble walking Endocrine/Heme/Lymph: Negative for: swollen lymph nodes, easy bruising Physical Exam BP 157/100 | Pulse 75 | Temp(Src) 97.7 F (36.5 C) (Oral) | Resp 16 | Ht 1.676 m (5' 6") | Wt 81.647 kg (180 lb) | BMI 29.05 kg/m2 | SpO2 99% VS reviewed: Elevated blood pressure present, remainder of VS are WNL. Pulse Oximetry interpretation: Normal Pt is afebrile, appears uncomfortable Skin is warm, good color and dry. Head - atraumatic Eyes: non-icteric Nose: No rhinorhhea Neck: non-tender, pt can move neck without any sign of limited range of motion or notable grimace Cardiovascular: Regular rhythm and rate, no harsh murmur appreciated Respiratory: Lungs are clear to auscultation, with positive bilateral chest excursion and good tidal volume, no rales, rhonchi, or wheezes Abdomen: Soft, non-tender, no rebound or guarding, no bruit, no palpable pulsatile mass Hip and spine exam: Inspection and palpation Pelvis and shoulders are level bilaterally, no obvious curvature of spine present. Palpati on of the paraspinal muscles reveals left and right-sided tenderness at lumbar vertebrae #'s L4-L5. I do not appreciate spasm at this time. There is tenderness or prominence to the s pinous processes with tapping. There is no overlying skin lesion, nor errythema or edema to skin to suggest cellulitis. There is no tenderness or increased warmth at the sacroilliac joints, greater trochanters, or ischial tuberosities. Range of motion testing: Unable to test patient due to his pain. Gait: Pt states he can not walk right now. Neurological exam: No obvious thigh or calf atrophy is present. Motor strength testing (L2 - S3) of hips, knee, and foot is very difficult to get accurate exam at this time, there is no weakness difference between right and left leg in all muscle groups. Dorsiflexion of great toe intact without weakness bilaterally. Sensory testing of dermatomes with light touch is negative for sensory deficit. Deep tendon reflexes: Patellar(L4): 2+ bilaterally, unable to obtain achilles reflex at t his time. Special testing: Straight leg raise in supine position with passive dorsiflexion of foot is positive for rad icular pathology bilaterally. Medical Decision Making and Emergency Department Course ED Department Course Patient presents with acute low back pain. Some of the possible spinal origins of low back pain causes include muscle strain, musculoligamentous injury, disc herniation, degenerative joints or discs, compression fracture from trauma or osteoporosis, spondylolisthesis, ankyl osing spondylitis, spinal cord tumor, epidural abscess or neoplasm. I have also considered some non-spinal causes of low back pain including AAA, prostatitis, upper UTI (pyelonephritis), abdominal neoplasm, prostrate neoplasm, renal colic from kidney stone, and aortic dissection. I doubt these non-spinal causes at this time as pt's H & P are consistent with mechanical low back pain. Pt lacks risk factors for serious disease such as fever, significant trauma, age > 60 y/o, there is no hx of cancer, pt does not take steroids chronically, pt denies hx of IV drug use , and pt has not had any recent instrumentation or bacteremia. Red flag: Pt does not get relief when he changes position and lays down. Will give Dilaudid and order MRI due to pain down both legs. Pt continues to have pain will give dilaudid. Pt continues to have pain will give toradol. Pt continues to have pain despite 5 doses of dilaudid today and one dose of toradol. His M RI has returned and there is no acute neuro-surgical emergency at this time. Will discuss c ase with hospitalist to consider admission. Admission criteria for back pain includes the following: - Severe pain with inabiity to ambulate - Pain unresponsive to ED management - Progressive neurological deficits - Signs of cauda equina syndrome - Evidence of infectious, vascular, or neoplastic etiologies I have given three rounds of pain medication here in ED and am unable to control patients p ain, also pt was given three rounds of dilaudid prior to arrival. Pt states he can't walk b ecause of his pain and requests admission at this time for pain control. I informed him michael t he needs to see a neurosurgeon and pain specialist. Pt does however meet admission criter ia in red above. BP 161/85 | Pulse 60 | Temp(Src) 97.9 F (36.6 C) (Oral) | Resp 20 | Ht 1.676 m (5' 6") | Wt 81.647 kg (180 lb) | BMI 29.05 kg/m2 | SpO2 96% Records Reviewed Old medical records. Laboratory Evaluation Labs Reviewed CBC W/AUTO DIFF (REFLEX TO MANUAL) - Abnormal; Notable for the following: PLT 134 (*) [place] [facility] [place] [place] [id number] All other components within normal limits COMPREHENSIVE METABOLIC PANEL - Abnormal; Notable for the following: CALCIUM 8.4 (*) Testing [place] [facility] [place] [place] [id number] AST 56 (*) [place] [facility] [place] [place] [id number] ALT 139 (*) Testing [place] [facility] [place] [place] [id number] All other components within normal limits Transaminitis, mild. Radiology and EKG Evaluation Imaging Results MRI L-Spine with and without contrast (Preliminary result) Result time:03/13/121809 Preliminary result by Rad Results In Eric (03/13/12 18:10:57) Narrative: Impression 1. Moderate diffuse disk bulge L5-S1 with mild bilateral neuroforaminal narrowing appears u nchanged . 2. Mild diffuse disk bulge at L4-L5. New moderate moderate left broad-based disk protrusion at the left foraminal aspect resulting in moderate left neuroforaminal narrowing. The right neural foramen appears patent. No central stenosis. 3. No acute bone findings are seen. Read by Theresa Pink MD on Mar 13 2012 6:10PM ED Diagnosis Final diagnosis Intractable back pain Disposition: ED Disposition Admit/Observation Requested Unit:: Acute Care Bed request special needs: Fall risk Diagnosis?: intractable back pain Follow-up Information None Discharge Medications: New Prescriptions No new medications BP 161/85 | Pulse 60 | Temp(Src) 97.9 F (36.6 C) (Oral) | Resp 20 | Ht 1.676 m (5' 6") | Wt 81.647 kg (180 lb) | BMI 29.05 kg/m2 | SpO2 96% Temp: [97.7 F (36.5 C)-97.9 F (36.6 C)] 97.9 F (36.6 C) Heart Rate: [60-75] 60 Resp: [14-20] 20 BP: (125-161)/(81-100) 161/85 mmHg Donny Novoa PA-C 03/13/122049 onversion Transactio n, Provider Unknown - 03/13/2012 2:10 PM PDT ED Notes by Wendy Calderon RN at 03/13/12 1410 Author: Wendy Calderon RN Service: (none) Author Type: Registered Nurse Filed: 03/13/12 141 Date of Service: 03/13/121409 Status: Signed Special Collections Librarian: Wendy Calderon RN (Registered Nurse) Bed:15
Expected date:
Expected time:
Means of arrival:
Comments:
Back pain with loss of feeling to rectum onver martine Transaction, Provider Unknown - 03/13/2012 12:50 PM PDT ED Notes by Wendy Calderon RN at 03/13/12 125 Author: Wendy Calderon RN Service: (none) Author Type: Registered Nurse Filed: 03/13/12 1255 Date of Service: 03/13/121249 Status: Signed Special Collections Librarian: Wendy Calderon RN (Registered Nurse) Back injury due to jerking motion but pt. Has chronic back pain. ED Physician found pt. To have decrease in rectal tone, pain down right leg and right arm. Pt. Needs MRI. Hx of HIV , Hep C. 150/81, 73, 16, 18 francois left AC Wendy Calderon RN 03/13/12 9992 docume nted in this encounter Miscellaneous Notes Op Note - Skyler Dong MD - 03/15/2012 5:20 PM PDTFormatting of this note might be di fferent from the original. Op Note by Skyler Dong MD at 03/15/12 172 Author: Skyler Dong MD Service: Interventional Pain Management Author Type: Physic brian Filed: 03/15/121722 Date of Service: 03/15/121719 Status: Signed Special Collections Librarian: Skyler Dong MD (Physician) [address], [address] Service: Interventional Pain Management Operative Note Name: Bradley Giles Age: 46 y.o. Todays Date: 03/15/2012 Time: 5:20 PM PROCEDURE-Right L5 Transforaminal Lumbar TOI Right L5 Transforaminal Lumbar Epidural Steroid Injection under fluoroscopic guidance. PREOPERATIVE DIAGNOSIS [ES]- Lumbar degenerative disc disease Lumbar radiculitis POSTOPERATIVE DIAGNOSIS [ES]- Lumbar degenerative disc disease Lumbar radiculitis ANESTHESIA- Moderate sedation with 2 mg of Versed and 75 mcg of fentanyl, and local anesthesia with 1 p ercent lidocaine. COMPLICATIONS- None apparent. BLOOD LOSS- Zero. INDICATIONS FOR PROCEDURE: This patient has MRI documented lumbar degenerative disc disease and right lower extremity radicular pain. They have failed conservative therapy and are the refore candidate for epidural steroid injections. Transforaminal Lumbar TOI Procedure- After informed consent was obtained, the patient was taken to the operating room and placed in the prone position with the patient's abdomen supported by pillows. Fluoroscopy was uti lized to identify the Right L5 neural foramen. The patient's back was prepped with ChloraPr ep and draped in the usual sterile fashion. The skin and subcutaneous tissues at the inject ion site were anesthetized with a total of 7 mL of 1 percent lidocaine. This was done utili zing a 27-gauge 1-1/2 inch needle. Under fluoroscopic guidance, a 5 inch 23-gauge block needle was placed into the Right L5 ne ural foramen. After negative aspiration, Injection of 1.5 mL of Isovue M 300 contrast demons trated very nice spread in the lateral epidural space and nice nerve root outlined. A mixtu re containing 80 mg of Depo-Medrol and 1 mL of preservative free 0.5 percent Marcaine was in jected and the needle was removed. The patient tolerated the procedure well and was taken to the recovery room in stable condi tion. There were no complications apparent. Throughout the procedure, the patient had cont inuous monitoring of blood pressure, pulse and oxygen saturation. These remained stable thr oughout the procedure. The patient will be contacted by phone in approximately 2 weeks for a telephone follow-up. If necessary, the patient will be seen back at [facility] for re-evaluation and further therapeutic plans. PREPARED BY: Skyler Dong M.D. Procedure performed at [facility] documented in this encounter Plan of Treatment [...] [place] | | | | | | [id number] | | | | | | | | +--------+---------+ + + + documented as of this encounter Procedures + +--------+ + + + | Procedure Name | Priori | Date/Time | Associated Diagnosis | Comments | | | ty | | | | + +--------+ + + + | FL C ARM < 1 HOUR | Routin | 03/15/2012 | | Results for this | | | e | 6:54 PM | | procedure are in the | | | | PDT | | results section. | + +--------+ + + + | MRI LUMBAR SPINE W | Routin | 03/13/2012 | | Results for this | | WO CONTRAST | e | 4:47 PM | | procedure are in the | | | | PDT | | results section. | + +--------+ + + + documented in this encounter Results FL C-Arm < 1 Hour (03/15/2012 6:54 PM PDT) + + | Specimen | + + | | + + + + + | Narrative | Performed At | + + + | This is a non-reportable procedure without a radiologist report and | | | is used for image storage only. Images were for surgical mapping. | | | | | + + + + + | Procedure Note | + + | El Reyes - 01/07/2019 3:56 AM PDT This is a non-reportable procedure | | without a radiologist report and is used for image storage only. Images were for | | surgical mapping. | + + MRI Lumbar Spine w wo Contrast (03/13/2012 4:47 PM PDT) + + | Specimen | + + | | + + + + + | Narrative | Performed At | + + + | MRI LUMBAR SPINE WITH AND WITHOUT CONTRAST 03/13/2012 HISTORY: | | | Back injury six months ago from a fall. Bilateral radiculopathy. | | | COMPARISON: Lumbar spine MRI from 11/07/2011. TECHNIQUE: | | | Multiplanar, multiweighted MRI sequences obtained of the lumbar spine | | | without contrast. FINDINGS: L5-S1: Diffuse desiccation of the | | | disk is again noted. There is a moderate diffuse disk bulge with a | | | high intensity zone seen centrally. No central stenosis. There is mild | | | bilateral neural foraminal narrowing and this appears unchanged. | | | L4-L5: Slight worsening disk desiccation. There is a new broad-based | | | disk protrusion seen at the left foraminal aspect resulting in | | | moderate left neural foraminal narrowing, this is on top of a mild | | | diffuse disk bulge. The right neural foramen appears patent. No | | | central stenosis. Mild facet arthropathy noted at L4-L5 similar to the | | | prior. Remaining levels in the lumbar spine are unremarkable. | | | No abnormal enhancing lesions are seen. No evidence for osteomyelitis | | | or an abscess. IMPRESSION: 1. Moderate diffuse disk bulge at | | | L5-S1 with mild bilateral neural foraminal narrowing appears | | | unchanged. 2. Mild diffuse disk bulge at L4-L5. New moderate left | | | broad-based disk protrusion at the left foraminal aspect resulting in | | | moderate left neural foraminal narrowing. The right neural foramen | | | appears patent. No central stenosis. 3. No acute bone findings are | | | seen. Electronically signed by Theresa Pink MD on Mar 13 2012 | | | 11:29PM | | + + + + + | Procedure Note | + + | El Reyes Conversion - 01/07/2019 3:56 AM PDT MRI LUMBAR SPINE WITH AND WITHOUT | | CONTRAST 03/13/2012 HISTORY: Back injury six months ago from a fall. Bilateral | | radiculopathy. COMPARISON: Lumbar spine MRI from 11/07/2011. TECHNIQUE: Multiplanar, | | multiweighted MRI sequences obtained of the lumbar spine without contrast. | | FINDINGS:L5-S1: Diffuse desiccation of the disk is again noted. There is a moderate | | diffuse disk bulge with a high intensity zone seen centrally. No central stenosis. There | | is mild bilateral neural foraminal narrowing and this appears unchanged. L4-L5: Slight | | worsening disk desiccation. There is a new broad-based disk protrusion seen at the left | | foraminal aspect resulting in moderate left neural foraminal narrowing, this is on top | | of a mild diffuse disk bulge. The right neural foramen appears patent. No central | | stenosis. Mild facet arthropathy noted at L4-L5 similar to the prior. Remaining levels | | in the lumbar spine are unremarkable. No abnormal enhancing lesions are seen. No | | evidence for osteomyelitis or an abscess. IMPRESSION:1. Moderate diffuse disk bulge at | | L5-S1 with mild bilateral neural foraminal narrowing appears unchanged.2. Mild diffuse | | disk bulge at L4-L5. New moderate left broad-based disk protrusion at the left foraminal | | aspect resulting in moderate left neural foraminal narrowing. The right neural foramen | | appears patent. No central stenosis.3. No acute bone findings are seen. Electronically | | signed by Theresa Pink MD on Mar 13 2012 11:29PM | |IMPRESSION: | |1. Moderate diffuse disk bulge at L5-S1 with mild bilateral neural foraminal narrowing appe ars unchanged. | |2. Mild diffuse disk bulge at L4-L5. New moderate left broad-based disk protrusion at the l eft foraminal aspect resulting in moderate left neural foraminal narrowing. The right neural foramen appears patent. No central stenosis. | |3. No acute bone findings are seen. | | | | Electronically signed by Theresa Pink MD on Mar 13 2012 11:29PM | + + documented in this encounter Visit Diagnoses + + | Diagnosis | + + | Intractable back pain Backache, unspecified | + + | Back pain, lumbosacral Lumbago | + + | Human immunodeficiency virus (HIV) disease (HCC) Human immunodeficiency virus [HIV] | | disease | + + | IBS (irritable bowel syndrome) Irritable bowel syndrome | + + | Seizures (HCC) Other convulsions | + + | Essential hypertension, benign | + + | Hepatitis C virus infection Unspecified viral hepatitis C without hepatic coma | + + documented in this encounter
--- OUTSIDE RECORDS SUMMARY | ~2019-11-25 | XMS | Encounter Summary ---
Demographics + + + | Address | [address] | | | [place] [address] | + + + | Home Phone | | + + + | Preferred Language | Unknown | + + + | Marital Status | | + + + | Evangelical Affiliation | 1013 | + + + | Race | Unknown | + + + | Ethnic Group | Unknown | + + + Author + + + | Author | [facility] | | | and [place] | + + + | Organization | [facility] | | | [...] [place] | | | | | [address] | | + + + + + Care Team Providers + +------+ + | Care Rn Transplant Name | Role | Phone | + +------+ + | Jax Cabrera MD | PCP | | + +------+ + Encounter Details +--------+ + + + + | Date | Type | Department | Care Team | Description | +--------+ + + + + | 04/14/ | Abstract | [facility] | [facility] | HIV (human | | 2016 | | CARDIOLOGY [address] | MD Andrea [address] | immunodeficiency | | | | [place], | [address] [place] | virus infection) | | | | [place] [address] | [place] [address] | ([facility]LY [facility]) (Primary Dx); | | | | [phone] | [phone] | Congenital heart | | | | | | disease | +--------+ + + + + Social [...] Description | +--------+---------+ + + + | 07/22/ | Office | Pain Medicine | Vitaliy Mendoza, | | | 2019 | Visit | | DO [address] | | | | | | [place] | | | | | | [phone] | | | | | | | | +--------+---------+ + + + documented as of this encounter Visit Diagnoses + + | Diagnosis | + + | HIV (human immunodeficiency virus infection) (HCC) - Primary Asymptomatic human | | immunodeficiency virus (HIV) infection status | + + | Congenital heart disease Unspecified congenital anomaly of heart | + + documented in this encounter"
--- OUTSIDE RECORDS SUMMARY | ~2019-11-25 | XMS | Encounter Summary ---
Demographics + + + | Address | [address] | | | [place] [address] | + + + | Home Phone | | + + + | Preferred Language | Unknown | + + + | Marital Status | Unmarried Domestic Partner | + + + | Spiritism Affiliation | NON | + + + | Race | White | + + + | Ethnic Group | Not or | + + + Author + + + | Author | [facility] | + + + | [...] [place] | | | | | [id number] | | + + + + + Care Team Providers + +------+ + | Care Cephalometric Tracer Name | Role | Phone | + +------+ + | Jax Cabrera MD | PCP | | + +------+ + Reason for Visit + + + | Reason | Comments | + + + | Medication | | | management | | + + + | Hives | rash is what's left. | + + + | HIV | | + + + Encounter Details +--------+---------+ + + + | Date | Type | Department | Care Team | Description | +--------+---------+ + + + | 02/24/ | Office | [facility] Primary Care | Fred | Influenza vaccine | | 2017 | Visit | at [facility] | MD Caio | needed (Primary Dx); | | | | [address] | [address] | HIV (human | | | | [address] [facility] | [place], | immunodeficiency | | | | Pavilion, 3rd floor | [place] [address] | virus infection) | | | | [place], [place] | [phone] | ([facility]); Need for | | | | [address] | | pneumococcal | | | | [phone] | | vaccination | +--------+---------+ + + + Social History [...] + + + | Blood Pressure | 152/88 | 02/24/2017 10:34 AM | | | | | PDT | | + + + + + | Pulse | 64 | 02/24/2017 10:34 AM | | | | | PDT | | + + + + + | Temperature | 36.9 C (98.4 F) | 02/24/2017 10:34 AM | | | | | PDT [...] + + + + | Weight | 72.5 kg (159 lb 12.8 | 02/24/2017 10:34 AM | | | | oz) | PDT | | + + + + + | Height | - | - | | + + + + + | Body Mass Index | 25.79 | 06/17/2016 1:26 PM | | | | | PST | | + + + + + documented in this encounter Patient Instructions Patient Instructions Jules Gonzalez DO - 02/24/2017 11:05 AM PDTIt was good seeing you today. We would like to you to get your labs done today. You should continue taking your Tivicay, and stop taking Descovy - we will restart Truvada. Please make an appointment to be see in 5 week to 6 weeks. Please connect with Mr. Potts about resources nearer to your home. documented in this encounter Progress Notes Jules Gonzalez DO - 02/24/2017 11:05 AM PDTFormatting of this note might be different f rom the original. Internal Medicine Clinic/HIV Clinic Patient Active Problem List Diagnosis HIV (human immunodeficiency virus infection) (HCC) Hepatitis B Seizure (HCC) Bipolar I disorder (HCC) Benign essential hypertension Back pain Convulsions (HCC) Chronic Diarrhea Nausea and vomiting Seizure disorder (HCC) Asthma Heart murmur Radicular pain Chronic pain associated with significant psychosocial dysfunction Cardiac anomaly, congenital Degeneration of intervertebral disc of cervical region History of heroin abuse Hypertension Irritable bowel syndrome Intermittent asthma Sacroiliac joint pain Arthropathy of lumbar facet joint VSD (ventricular septal defect) Chronic pain No outpatient prescriptions have been marked as taking for the 02/24/17 encounter (Office V isit) with Caio Ibarra MD. Chief Complaint Patient presents with Medication management Hives rash is what's left. History of Present Illness: Ivan is a 51 y.o. male with history of above who presents f or follow up. No past encounter found with Jax Cabrera MD. Ivan presents with continued and slightly worsening diarrhea. He notes he has been comp liant with Crofelemer for the last 3-4 months and has had no improvement and possibly slight worsening Ivan has stopped taking his Descovy (TAF/FTC) around 4 weeks ago due to headaches, dizzi ness, and "equilibrium issues". Since stopping the medications these symptoms have resolved . -- He has continued taking his Tivicay without any missed doses. He also notes a rash for last 10-14 days on his arms and legs that is descried as very itch y. No inciting causes - denies new detergents or soaps, no new clothes, no new contacts with animals/pets. No outdoor exposures. He denies palmar lesions. Rash has not been present on back or abdomen. Currently, he notes it seems to be improving. Furthermore, Bradley is frustrated with medical care in [facility]. He has not seen his PCP recently and would like [place] [facility]. Review of Systems: As above, all other systems are negative. Reviewed social and family history and changes were updated in Epic. Physical Examination: BP 152/88 | Pulse 64 | Temp (Src) 36.9 C (98.4 F) (Oral) | Wt 72.5 kg (159 lb 12.8 oz) | BMI 25.79 kg/(m^2) General: He is a well developed, well nourished alert, oriented, euthymic-appearing male, alert and oriented x 3. Skin: Faint erythematous macular rash on upper and lower extremities with associated old-a ppearing lesions c/w scratching and scabbing of lesions. No palmar lesions. No oral lesions . Lymph nodes: No significant cervical, supraclavicular or axillary adenopathy appreciated. HEENT: EOMI. PERRL. Conjunctivae pink. Sclera anicteric. Oropharynx: no oral hairy leukop obdulio, thrush or exudates. Mucous membranes are moist. Dentition appears good. Back: Normal stature, no spinal tenderness. No rash lesions on back or abdomen Lungs: CTAB Cardiac: RRR, no m/r/g Abdomen: NT/ND, no HSM or masses palpated. Extremities: No clubbing or edema. Rash as above Neurologic: Alert and oriented x3. Normal gait. Labs: Lab Results Component Value Date [id number] 664 08/17/2016 CN1CKEDEYK 30.3 08/17/2016 HIVPCR Undetected 08/17/2016 Lab Results Component Value Date RPR Non Reactive 06/17/2016 Lab Results Component Value Date CHOL 155 06/17/2016 LDL 96 06/17/2016 HDL 50 06/17/2016 TRI 47 06/17/2016 Lab Results Component Value Date [id number] 13.6 08/17/2016 Last CBC, CMP reviewed with patient. Assessment and Plan: (Z23) Influenza vaccine needed (primary encounter diagnosis) Plan: STAFF TO GIVE: INFLUENZA VACC, QUADRIVALENT, 0.5 ML VIAL, IM (B20) HIV (human immunodeficiency virus infection) ([facility]) Plan: CBC, WITH DIFFERENTIAL, CD4 (T CELL), BLOOD, COMPLETE METABOLIC SET (NA,K,CL,CO2,BUN,CREAT,GLUC,CA,AST,ALT,BILI TOTAL,ALK PHOS,ALB,PROT TOTAL), HIV QUANTITATIVE PCR, PLASMA, HEPATITIS B BY PCR, LAB OTHER Ivan is a 50 y.o. male with history of above who presents for follow up of his HIV and o ther chronic issues. # HIV (human immunodeficiency virus infection) ([facility]): (viral load UD 08/2016 & CD4 372 06/2016) Concerning now that he has stopped Descovy (TAF/FTC) over a month ago and now been on essen tial Integrase Inhib monotherapy. Given it has been 4 weeks - unsure what mutations may sti ll be found - but will check labs today including genosure prime. - Labs Today: CBC, CMP, HIV PCR, CD4 count, and genosure -STOP Descovy (TAF/FTC) -START Truvada (TDF/FTC) -c/w Tivicay (DTG) #Headache/Dizzyness: -suspect related to Descovy (TAF/FTC) - patient relates these symptoms to the medication an d si since stopping the medication nearly a month ago, the symptoms have largely resolved. # Chronic Diarrhea: Chronic HIV-related Diarrhea: Unimproved despite Crofelemer x3-4 months -colonoscopy this month per patient -will continue current regimen for now # Rash: improving Unclear nature of rash - does seem to be improving per patient. Locations is solely on the upper and lower extremities - no palmar lesions. No inciting cause (ie new soaps, detergent s, outdoor or pet exposures) # HTN Patient with high SBP in clinic to 150s today. -c/w Amlodipine 10 mg daily and Telmisartan 80 mg daily. -follow up with PCP # Chronic LBP 2/2 to lumbar degenerative disease. Patient asking for pain medications today - oxycontin and lyrica. -patient needs to follow up with PCP in regards to this, and this was discussed with him. I asked patient during visit to return to clinic in 4 months for routine follow up, sooner if acute issue arises. I spent more than 30 minutes [id number] with the patient of which greater than 50% was sp ent counseling the patient regarding their HIV and other chronic issues. Jules Gonzalez DO Infectious Disease Fellow - [facility] Associated attestation - Caio Ibarra MD - 03/07/2017 2:01 PM PDTI am familiar with Mr. Haines medical history and the current active problems. I discussed the history, examina tion findings, management options and treatment plan in detail with ID fellow, Dr. Carlos turcios the time of this visit on 10/11/17. I was physically present in the examination room jacobosonu ryan lainez portions of the service provided, including a review of review of decision-making michael t occurred. I provided personal direction in the services rendered, ensuring that reasonable and necessary care was provided. I have reviewed the resident s note and I agree with the findings, assessment, advice, orders and plan as they are documented with these additional comments. 1. HIV 2. Chronic Pain 3. Uncontrolled Blood Pressure 4. Pseudo-Seizure disorder /Mental Health Bipolar 5. Chronic diarrhea 1. HIV : I advised Bradley to continue to take 100% of the prescribed antiretroviral doses to avoid developing resistance and to obtain maximum benefit from medications. He should radha nue to be better adherent to his medication. He will get repeat restaging labs but for now is encouraged to continue with his current medications. He complains of dizziness related to his TAF/FTC, however, doubt this is a very common side-effect. 2. Chronic Pain : Discussed with Ivan that he should continue to look for a pain special ist closer to his home. It would be appropriate in the role of his HIV oracle application consultant to prescri be chronic pain medications. He agrees to look into this. Ideally, given his long goods drier issue s with opioids, unclear if he 3. Uncontrolled BP -BP is still high and not controlled for many visit. He still continue s to be at risk for poor end organ complications. He was urged that he should be complaint with his amlodipine. Again, urged to follow up with his PCP as early as possible. 4. Pseudo-Seizure Disorder - He states has a diagnosis of pseudo-seizures . Given that karen davis know he has this diagnosis. It would be important for him to engage in mental health care. - 5. Chronic Diarrhea- given his age and chronicity, he is scheduled to have a colonoscopy MD Alvino Htuchinson Juan, MA - 02/24/2017 11:05 AM PDTFormatting of this note might be different from t ramon original. Patient is here today to address Chief Complaint Patient presents with Medication management Hives rash is what's left. Vitals BP 152/88 | Pulse 64 | Temp (Src) 36.9 C (98.4 F) (Oral) | Wt 72.5 kg (159 lb 12.8 oz) | BMI 25.79 kg/(m^2) Patient reports a pain level of 05 - Moderate to Severe today. History Smoking Status Never Smoker Smokeless Tobacco Not on file Allergies Allergen Reactions Gabapentin Unknown and Hallucinations Loss of memory, headache Loss of memory, headache Phenytoin Diarrhea and Unknown h/a Phenytoin Sodium Extended Unknown h/a Medications reconciled with patient? Yes . Health Maintenance Health Maintenance Due Topic Date Due PPSV PNEUMOCOCCAL VACCINE 03/10/2016 TB SCREENING (PPD/TST,QUANTIFERON) 06/18/2016 INFLUENZA VACCINE (FLU SHOT) 01/15/2017 Shared Decision Making: Not completed at this visit SBIRT: Not due The patient was screened for the following contraindications to influenza vaccine and respo nses were as follows: Febrile illness today? No Allergy to eggs? No Prior history of a reaction to flu vaccine? No Prior history of Guillain-Paradise syndrome? No (For patients receiving Fluarix): Allergy or sensitivity to Latex? No documented in this encou nter Plan of Treatment Not on filedocumented as of this encounter Results LAB OTHER (02/24/2017 12:23 PM PDT) + + + + + + | Component | Value | Ref Range | Performed | Pathologist | | | | | At | Signature | + + + + + + | MISC REF | Genosure Prime, EDTA | | [facility] | | | TEST NAME | Plasma | | LABORATORY | | | | | | SERVICES, | | | | | | CORE | | + + + + + + | MISC REF | <40 copies/mL Comment: | | [facility] | | | TEST RESULT | This sample was diluted | | REFERENCE | | | | (1:1) in order to obtain | | LAB | | | | the HIV-1 viral load | | | | | | due to insufficient | | | | | | specimen volume. Result | | | | | | reported has been | | | | | | adjusted for this | | | | | | dilution. | | | | + + + + + + | NORMAL | Reportable range for | | [facility] | | | RANGE | this assay is 20 to | | REFERENCE | | | | 10,000,000 copies HIV-1 | | LAB | | | | RNA/mL. | | | | + + + + + + | REFERRAL | Test performed by: | | [facility] | | | LAB NAME | [facility] | | REFERENCE | | | | [address] | | LAB | | | | [place] [address] | | | | + + + + + + + + | Specimen | + + | Blood - Blood | | (substance) | + + + + + | Narrative | Performed At | + + + | See scanned | [facility] | | report for Technical Results and further Interpretation and Comments. | REFERENCE LAB | | | | | | | + + + + + + + + | Performing | Address | City/State/Zipcode | Phone Number | | Organization | | | | + + + + + | [facility] | | | | + + + + + | [facility] | [address] | [place] [address] | | | SERVICES, CORE | [address] | | | + + + + + | [facility] | see below | | | + + + + + HEPATITIS B BY PCR (02/24/2017 12:23 PM PDT) + + + + + [...] + + + | [facility] | [address] | [place] [address] | | | DIAGNOSTIC | [address] | | | | LABORATORIES | | | | + + + + + HIV QUANTITATIVE PCR, PLASMA (02/24/2017 12:23 PM PDT) + +--------+ + + + | Component | Value | Ref Range | Performed | Pathologist | | | | | At | Signature | + +--------+ + + + | HIV | 48 (H) | Undetected | [facility] | | | QUANTITATIV | | copies/mL | DIAGNOSTIC | | | E PCR, | | | | | | VALUE | | | LABORATORIE | | | | | | S | | + +--------+ + + + + + | Specimen | + + | Blood - Blood | | (substance) | + + + + + | Narrative | Performed At | + + + | Reportable Range: 40-10,000,000 HIV-1 copies/mL Positive results | [facility] | | are consistent with active HIV infection. High or serially rising | DIAGNOSTIC | | HIV viral loads are a poor prognostic indicator for antiviral therapy | LABORATORIES | | efficacy and predict a more [...] | + + + + + | [facility] | [address] | [place] [address] | | | DIAGNOSTIC | [address] | | | | LABORATORIES | | | | + + + + + COMPLETE METABOLIC SET (NA,K,CL,CO2,BUN,CREAT,GLUC,CA,AST,ALT,BILI TOTAL,ALK PHOS,ALB,PROT TOTAL) (02/24/2017 12:23 PM PDT) + +---------+ + + + | Component | Value | Ref Range | Performed | Pathologist | | | | | At | Signature | + +---------+ + + + | GLUCOSE, | 89 | 70 - 99 mg/dL | [facility] | | | PLASMA | | | LABORATORY | | | (LAB) | | | SERVICES, | | | | | | CORE | | + +---------+ + + + | BUN, PLASMA | 15 | 6 - 20 mg/dL | [facility] | | | (LAB) | | | LABORATORY | | | | | | SERVICES, | | | | | | CORE | | + +---------+ + + + | CREATININE | 0.79 | 0.70 - 1.30 | [facility] | | | PLASMA | | mg/dL | LABORATORY | | | (LAB) | | | SERVICES, | | | | | | CORE | | + +---------+ + + + | EGFR | >60 | >60 mL/min | [facility] | | | - | | | LABORATORY | | | [facility] | | | SERVICES, | | [...] +---------+ + + + | CHLORIDE, | 106 | 97 - 108 mmol/L | [facility] | | | PLASMA | | | LABORATORY | | | (LAB) | | | SERVICES, | | | | | | CORE | | + +---------+ + + + | TOTAL CO2, | 28 | 21 - 32 mmol/L | [facility] | | | PLASMA | | | LABORATORY | | | (LAB) | | | SERVICES, | | | | | | CORE | | + +---------+ + + + | CALCIUM, | 9.4 | 8.6 - 10.2 | [facility] | [...] +---------+ + + + | BILIRUBIN | 0.8 | 0.3 - 1.2 mg/dL | [facility] | | | TOTAL | | | LABORATORY | | | | | | SERVICES, | | | | | | CORE | | + +---------+ + + + | TOTAL | 8.1 | 6.4 - 8.2 g/dL | [facility] | | | PROTEIN, | | | LABORATORY | | | PLASMA | | | SERVICES, | | | (LAB) | | | CORE | | + +---------+ + + + | ALBUMIN, | 4.4 | 3.5 - 4.7 g/dL | [facility] | | | PLASMA | | | LABORATORY | | | (LAB) | | | SERVICES, | | | | | | CORE | | + +---------+ + + + | ALK PHOS | 80 | 53 - 128 U/L | [facility] | | | | | | LABORATORY | | | | | | SERVICES, | | | | | | CORE | | + +---------+ + + + | AST(SGOT) | 16 | <=41 U/L | [facility] | | | | | | LABORATORY | | | | | | SERVICES, | | | | | | CORE | | + +---------+ + + + | ALT (SGPT) | 28 | <=60 U/L | [facility] | | [...] Performed At | + + + | Adult glucose reference range change effective 7-12-17. GFR is | [facility] | | estimated using the MDRD equation recommended by the National Kidney | LABORATORY | | Disease Education Program. Estimated GFR Interpretive Information: | SERVICES, CORE | | <60 mL/min/1.73 sq m Chronic Kidney Disease | | | <15 mL/min/1.73 sq m Kidney Failure Estimated | | | GFR greater that 60 mL/min/1.73 sq m is of limited clinical value. | | | The MDRD equation is not valid in the following situations: - | | | Patients under 18 years of age - Severe malnutrition or obesity - | | | Vegetarian diet - Rapidly changing kidney function | | + + + + + + + + | Performing | Address | City/State/Zipcode | Phone Number | | Organization | | | | + + + + + | [facility] | [address] | [place] [address] | | | SERVICES, CORE | [address] | | | + + + + + CD4 (T CELL), BLOOD (02/24/2017 12:23 PM PDT) + +-------+ + + + | Component | Value | Ref Range | Performed | Pathologist | | | | | At | Signature | + +-------+ + + + | CD4 % (T | 35.1 | 26.0 - 61.0 % | [facility] | | | HELPER | | | LABORATORY | | | CELLS) | | | SERVICES, | | | | | | SPECIAL IMM | | | | | | + COAG | | + +-------+ + + + | CD4 (T | 507 | 212 - 1,391 /cu | [facility] [...] LABORATORY | | performance characteristics determined by [employer]. It has | SERVICES, | | not [...] | + + + + + | [facility] [employer] | [address] | [place] [address] | | | SERVICES, SPECIAL | [address] | | | | IMM + COAG | | | | + + + + + documented in this encounter Visit Diagnoses + + | Diagnosis | + + | Influenza vaccine needed - Primary Need for prophylactic vaccination and inoculation | | against influenza | + + | HIV (human immunodeficiency virus infection) (HCC) Asymptomatic human | | immunodeficiency virus (HIV) infection status | + + | Need for pneumococcal vaccination Need for prophylactic vaccination against | | streptococcus pneumoniae (pneumococcus) | + + documented in this encounter
--- OUTSIDE RECORDS SUMMARY | ~2019-11-25 | XMS | Clinical Summary ---
Demographics + + + | Address | [address] | | | [place] [address] | + + + | Home Phone | | + + + | Preferred Language | Unknown | + + + | Marital Status | Unmarried Domestic Partner | + + + | Buddhism Affiliation | NON | + + + [...] [place], [place] | | | | | [address] | | + + + + + Care Team Providers + +------+ + | Care Inspector Printed Circuit Boards Name | Role | Phone | + +------+ + | Jax Cabrera MD | PCP | | + +------+ + Source Comments FAUSTO is fully live on both EpicCare Ambulatory and EpicCare InPatient.[facility] Allergies + + + + + + [...] | + + + + + + Medications + + + +---------+------+------+-------+ | Medication | Sig | Dispensed | Refills | Star | End | Statu | | | | | | t | Date | s | | | | | | Date | | | + + + +---------+------+------+-------+ | telmisartan 80 mg | Take 1 tablet by | 30 | 0 | 10/2 | | Activ | | oral | mouth once daily. | tablet | | 20 | | e | | tabletIndications: | Indications: | | | 16 | | | | hypertension | HYPERTENSION | | | | | | + + + +---------+------+------+-------+ | divalproex [address] 250 | Rx per PCP. Per | | 0 | 04/16 | | Activ | | mg oral | patient takes 1 | | | 11/03 | | e | | tablet,delayed | tablet BID for | | | 16 | | | | release (DR/EC) | seizure d/o. | | | | | | + + + +---------+------+------+-------+ | salmeterol | Rx per PCP. Per | | 0 | 04/16 | | Activ | | (SEREVENT DISKUS) 50 | patient takes 2 | | | 6/20 | | e | | mcg/dose inhalation | puffs as needed. | | | 16 | | | | blister with device | | | | | | | + + + +---------+------+------+-------+ | traZODone 100 mg | Rx per PCP. Per | | 0 | 04/16 | | Activ | | oral tablet | patient takes 1 | | | 6/20 | | e | | | tablet every evening | | | 16 | | | | | for sleep. | | | | | | + + + +---------+------+------+-------+ | | Rx per PCP. Per | | 0 | 12/1 | | Activ | | diphenoxylate-atropi | patient takes as | | | 6/20 | | e | | ne 2.5-0.025 mg oral | needed for diarrhea. | | | 16 | | | | tablet | | | | | | | + + + +---------+------+------+-------+ | dolutegravir | Take 1 tablet by [...] | | | | | | | ([facility]) | | | | | | | + + + +---------+------+------+-------+ | | Take 1 tablet by | [...] (HCC) | | | | | | | + + + +---------+------+------+-------+ | albuterol (PROAIR | Inhale 1-2 puffs by | 1 | 2 | 02/0 | | Activ | | HFA) 90 | mouth every six | Inhaler | | 1/20 | | e | | mcg/actuation | [...] | | | | + + + +---------+------+------+-------+ | SUMAtriptan 100 mg | Take by mouth. | | 0 | | | Activ | | oral tablet | | | | | | e | + + + +---------+------+------+-------+ | promethazine 12.5 | Takes as needed for | 30 | 0 | 03/2 | | Activ | | mg oral tablet | nausea. 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/14/2016 | + + + | History of heroin abuse | 04/03/2016 | + + + | Intermittent asthma | 04/03/2016 | + + + | Chronic hepatitis C virus infection | 04/03/2016 | + + + + + | Overview: Overview: | | Completed Harvoni treatment | | He is disease free | + + + + + | Bipolar I disorder | 02/16/2016 | + + + | Benign essential hypertension | 02/16/2016 | + + + | Back pain | 02/16/2016 | + + + | Convulsions | 02/16/2016 | + + + | Chronic Diarrhea | 02/16/2016 | + + + | HIV (human immunodeficiency virus infection) | 02/07/2016 | + + + + + | Overview: Last Assessment & Plan: | | Will continue with Infectious disease specialist. | + + + + + | Hepatitis B | 02/07/2016 | + + + | Seizure | 02/07/2016 | + + + | [...] + | Arthropathy of lumbar facet joint | 05/23/2012 | + + + + [...] + + + + | Name | Administration Dates | Next Due | + + + + | Influenza, high dose | 02/23/2011 | | | seasonal, | | | | preservative-free | | | + + + + | Influenza, | 02/24/2017, 03/09/2016 | | | injectable, | | | | quadrivalent, | | | | preservative free | | | | (IIV4) | | | + + + + | Influenza, seasonal, | 02/09/2012 | | | intradermal, | | | | preservative free | | | + + + + [...] recent travel history available. | + + Last Filed Vital Signs + [...] | | + + + + + Plan of Treatment + + + + + | Health Maintenance | Due Date | Last Done | Comments | + + + + + | Osteoporosis | | | | | screening/follow-up | 7 | | | + + + + + | TB SCREENING | | | | | (PPD/TST,QUANTIFERON | 7 | | | | ) | | | | + + + + + | VITAMIN D MONITORING | | 08/17/2016, 06/17/2016, | | | | 8 | 02/07/2016 | | + + + + + | Influenza (Flu) | | 02/24/2017, 03/09/2016, | | | vaccination (#1) | 9 | 02/09/2012, Additional history | | | | | exists | | + + + + + | Cholesterol | | 06/17/2016 | | | screening | 2 | | | + + + + + | Pneumococcal | Completed | 02/24/2017, 02/07/2016, | | | vaccination | | 03/10/2011 | | + + + + + Results Not on filefrom Last 3 Months Insurance + +--------+ +--------+ + +--------+ | Payer | Benefi | Subscriber | Effect | Phone | Address | Type | | | t Plan | ID | wilmer | | | | | | / | | Dates | | | | | | Group | | | | | | + +--------+ +--------+ + +--------+ | MEDICARE | MEDICA | xxxxxxxxxx | 01/15/19 | [phone] | [address] | Medica | | | RE A & | | 94-Pre | 1 | [phone] | re | | | B | | sent | | [place] | | | | | | | | [phone] | | + +--------+ +--------+ + +--------+ | [place]ID [place] | OHP | [id number] | 10/16/19 | [phone] | [address] | Medica | | | PLUS | | 15-Pre | 6 | [id number] | id | | | OPEN | | sent | | [place] | | | | CARD | | | | [phone] | | + +--------+ +--------+ + +--------+ | CAREASSIST | CARE | xxxx | 11/15/19 | [phone] | ATTN:TPA | POS | | | ASSIST | | 15-Pre | 4 | [address] | | | | | | sent | | [address] [address] | | | | | | | | [place], | | | | | | | | [place] [address] | | + +--------+ +--------+ + +--------+ + +--------+ +--------+ + + | Guarantor Name | Accoun | Relation to | Date | Phone | Billing Address | | | t Type | Patient | of | | | | | | | | | | + +--------+ +--------+ + + | Ivan Giles | Person | Self | [birth year] | [address] | | | al/Fam | | 1966 | [phone] | [place] [address] | | | [place] | | | 5 (Home) | | + +--------+ +--------+ + + Advance Directives + + + + + | Code Status | Date | Date | Comments | | | Activated | Inactivated | | + + + + + | Full Code | 03/08/2017 | 03/08/2017 | | | | 7:18 AM | 4:12 PM | | + + + + +
--- OUTSIDE RECORDS SUMMARY | ~2019-11-25 | XMS | Clinical Summary ---
Demographics + + + | Address | [address] | | | [place] [address] | + + + | Home Phone | | + + + | Preferred Language | Unknown | + + + | Marital Status | Unmarried Domestic Partner | + + + | Congregational Affiliation | NON | + + + [...] [place], [place] | | | | | [address] | | + + + + + Care Team Providers + +------+ + | Care Trust Clerk Name | Role | Phone | + +------+ + | Jax Cabrera MD | PCP | | + +------+ + Source Comments FAUSTO is fully live on both EpicCare Ambulatory and EpicCare InPatient.[facility] Allergies + + + + + [...] | | | | | | | ([facility]) | | | | | | | [...] | | | | | | | ([facility]), Diarrhea, | | | | | | [...] | MEDICA | xxxxxxxxxx | 01/15/19 | [phone] | [address] | Medica | | | RE A & | | 94-Pre | 1 | [phone] | re | | | B | | sent | | [place] | | | | | | | | [phone] | | + +--------+ +--------+ + +--------+ | MEDICAID [place] | OHP | [id number] | 10/16/19 | [phone] | [address] | Medica | | | PLUS | | 15-Pre | 6 | [id number] | id | | | OPEN | | sent | | [place] | | | | CARD | | | | [phone] | | + +--------+ +--------+ + +--------+ | CAREASSIST | CARE | xxxx | 11/15/19 | [phone] | ATTN:TPA | POS | | | ASSIST | | 15-Pre | 4 | [address] | | | | | | sent | | [address] [address] | | | | | | | | [place], | | | | | | | | [place] [address] | | + +--------+ +--------+ + +--------+ [...] | 1966 | [phone] | [place] [address] | | | [place] | | | [...]
--- OUTSIDE RECORDS SUMMARY | ~2019-11-25 | XMS | Encounter Summary ---
Demographics + + + | Address | [address] | | | [place] [address] | + + + | Home Phone | | + + + | Preferred Language | Unknown | + + + | Marital Status | | + + + | Sikhism Affiliation | 1013 | + + + | Race | Unknown | + + + | Ethnic Group | Unknown | + + + Author + + + | Author | [facility] | | | and [place] | + + + | Organization | [facility] | | | [...] [place] | | | | | [address] | | + + + + + Care Team Providers + +------+ + | Care Paper Cutting Machine Operator Name | Role | Phone | + +------+ + PCP | Unavailable | + +------+ + Encounter Details +--------+ + + + + | Date | Type | Department | Care Team | Description | +--------+ + + + + | 10/08/ | Hospital | [facility] | Woody Vance | | | 2012 | Encounter | [facility] | [place] [address] | | | | CENTER [address] | [address] [place] | | | | | [place], [place] | [place] [address] | | | | | [address] | [phone] | | | | | [phone] | | | +--------+ + + + [...] documented as of this encounter ED Notes Woody Vance MD - 10/08/2012 2:01 [place] [address] Patient Name: MICHAEL CHAVEZ Provider: Unit #: [id number] Location: : 1965 DATE: 10/08/2012 PRIMARY CARE: Primary care physician is in [place]. He sees a neurosurgeon in [facility] [place] Dr. Dong. CHIEF COMPLAINT: Back pain. HISTORY OF PRESENT ILLNESS: The patient is a 46-year-old male with a history of chronic luann k pain. It sounds like he has some herniated disks. He has been receiving steroid injection s. He ran out of his Percocet, which he had been on for a long time, about a month ago and has been managing okay; but sometimes will have exacerbations of his pain that radiates int o the right leg and it will get numb, and sometimes even weak. He is due for another steroi d injection here soon. Today he was at some kind of function and someone gave him a hug, an d when they squeezed him it hurt his back so severely that he collapsed. He did not pass ou t, but he had some shaking and seizure-like activity, which he says happens when he is havi ng a lot of pain. He was not postictal on hand tool filer arrival, did not lose bowel or bladder control, did not bite his tongue. He currently complains of pretty severe right lower back pain that radiates in a sciatic distribution down his right leg; but no weakness, no numbnes s, no loss of bowel or bladder control. PAST MEDICAL HISTORY: Significant for HIV with a CD4 count that is greater than 500, hepati tis C, neuropathy, asthma, cholecystectomy, kidney stones, hernia, pain-induced "seizure," and chronic back pain with herniated disks. CURRENT MEDICATIONS: Listed in the chart. Oxycodone is listed, but he has been out of that for a month. Of note, he is very, very straightforward about his medication use and his melony or addiction issues. ALLERGIES: NONE. SOCIAL HISTORY: Does not smoke. REVIEW OF SYSTEMS: Negative for any cauda equina symptoms. Negative for fevers. Negative fo r current IV drug use. All other review of systems negative except as noted above. PHYSICAL EXAMINATION VITAL SIGNS: Blood pressure 129/93, heart rate 71, respiratory rate 18, temperature 98.1, p ulse oximetry 98% on room air. GENERAL: He is lying on his left side, is comfortable in that position. If he rolls over, h e clearly hurts. CARDIOVASCULAR: Regular rate and rhythm. No murmur or rubs. LUNGS: Clear to auscultation bilaterally. ABDOMEN: Soft, nontender. BACK: Exam reveals some discomfort to palpation of the right lower back and in the right bu ttock. He has normal motor function and strength in both lower extremities symmetrically, 2 + reflexes at both knees, 2+ reflexes at both ankles. Toes are downgoing. He has normal lig ht touch sensation throughout both lower extremities. EMERGENCY ROOM COURSE: The patient does not have cauda equina symptoms. He also does not ap pear to have any infectius symptoms or risk factors snce his HIV is treated and his last CD 4 count was in the normal range. He has exacerbation of his chronic back pain symptoms wh ich have been attributed to his DJD, so he was given a shot of Dilaudid here with excellent results. I then agreed to give him a few Percocet until he can get a refill because I thin k he really does have pretty significant pain. IMPRESSION CHRONIC LOW BACK PAIN WITH RIGHT LOWER EXTREMITY RADICULOPATHY INTERMITTENTLY, NO SIGNS OF CAUDA EQUINA SYMPTOMS AT THIS TIME. PLAN: The patient is going to be discharged home. He was able to walk out of the ER, doing much better at the time of his discharge than when he came in. I have given him a few Perco cet and then recommended he follow up with his physician, including his neurosurgeon. DICTATED BY: Ernestine Vance MD Emergency Medicine JOB #: [id number] EXT JOB #:[id number] <<Signature on File>> Katalina Vance MD0 10/09/12 0657 < documented in this encounter Plan of Treatment [...] PAZ | | | | | | [id number] | | | | | | | | +--------+---------+ + + + documented as of this encounter Visit Diagnoses Not on filedocumented in this encounter
--- OUTSIDE RECORDS SUMMARY | ~2019-11-25 | XMS | Encounter Summary ---
Demographics + + + | Address | [address] | | | [place] [address] | + + + | Home Phone | | + + + | Preferred Language | Unknown | + + + | Marital Status | Unmarried Domestic Partner | + + + | Mandaen Affiliation | NON | + + + | Race | White | + + + | Ethnic Group | Not or | + + + Author + + + | Author | [facility] | + + + | Organization | [facility] | + + + | Address | Unknown | + + + | Phone | Unavailable | + + + Support + + + + + | Name | Relationship | Address | Phone | + + + + + | Gabriel Greenberg | ECON | [address] | | | | | [place] | | | | | [address] | | + + + + + Care Team Providers + +------+ + | Care Automation Design Engineer Name | Role | Phone | + +------+ + | No Pcp Per Patient | PCP | Unavailable | + +------+ + Reason for Visit + + + | Reason | Comments | + + + | Stomach discomfort | | + + + | Vomiting | | + + + Encounter Details +--------+ + + + + | Date | Type | Department | Care Team | Description | +--------+ + + + + | 03/17/ | Telephone | [facility] | Fred, | Stomach discomfort; | | 2015 | | at [facility] | MD Caio | Vomiting | | | | [address] | [address] | | | | | [address] Phys[address] | [address] [facility], | | | | | Pavilion, 3rd floor | [place] [address] | | | | | [place], [place] | [phone] | | | | | [address] | | | | | | [phone] | | | +--------+ + + + [...]
--- OUTSIDE RECORDS SUMMARY | ~2019-11-25 | XMS | Encounter Summary ---
Demographics + + + | Address | [address] | | | [place] [address] | + + + | Home Phone [...] [place] | | | | | [address] | | + + + + + Care Team Providers + +------+ + | Care Cordwood Cutter Helper Name | Role | Phone | + +------+ + | Jax Cabrera MD | PCP | | + +------+ + Reason for Visit + + + | Reason | Comments | + + + | Follow-up | | + + + | Neck Pain | | + + + Encounter Details +--------+---------+ + + + | Date | Type | Department | Care Team | Description | +--------+---------+ + + + | 11/13/ | Office | [facility] | Deyvi Kovacs, | Cervical radicular | | 2019 | Visit | [facility] | INSTRUCTIONAL SERVICES LIBRARIAN [address] | pain (Primary Dx); | | | | [address] | Degeneration of | | | | [address] | [place] [address] | intervertebral disc | | | | [place], [place] | [phone] | of cervical region; | | | | [address] | | Arthropathy of | | | | [phone] | | cervical facet | | | | | | joint; Degenerative | | | | | | lumbar spinal | | | | | | stenosis; Lumbar | | | | | | herniated disc; | | | | | | Degeneration of | | | | | | thoracic | | | | | | intervertebral disc; | | | | | | Facet arthritis of | | | | | | lumbar region; Long | | | | | | term current use of | | | | | | opiate analgesic | +--------+---------+ + + + Social History [...] + + + | Blood Pressure | 208/126 | 11/14/2019 9:28 AM | | | | | PDT | | + + + + + | Pulse | 68 | 11/14/2019 9:28 AM | | | | | PDT | | + + + + + | Temperature | - | [...] + + + + | Weight | 77.1 kg (170 lb) | 11/14/2019 9:28 AM | | | | | PDT | | + + + + + | Height | 167.6 cm (5' 6") | 11/14/2019 9:28 AM | | | | | PDT | | + + + + + | Body Mass Index | 27.44 | 11/14/2019 9:28 AM | | | | | PDT | | + + + + + documented in this encounter Patient Instructions Patient Instructions Fermín Deyvi Brielle, INSTRUCTIONAL SERVICES LIBRARIAN - 11/14/2019 9:25 AM PDT Naloxone nasal spray Brand Name: Kendra What is this medicine? NALOXONE (nal OX one) is a narcotic kevin. It is used to treat narcotic drug overdose. How should I use this medicine? This medicine is for use in the nose. Lay the person on their back. Support their neck with your hand and allow the head to tilt back before giving the medicine. The nasal spray shoul d be given into 1 nostril. After giving the medicine, move the person onto their side. Do no t remove or test the nasal spray until ready to use. Get emergency medical help right away after giving the first dose of this medicine, even if the person wakes up. You should be familiar with how to recognize the signs and symptoms of a narcotic overdose. If more doses are needed, give the additional dose in the other nostri l. Talk to your ovens supervisor regarding the use of this medicine in children. While this drug m ay be prescribed for children as young as newborns for selected conditions, precautions do a pply. What side effects may I notice from receiving this medicine? Side effects that you should report to your doctor or health respiratory care program director as soon as p ossible: allergic reactions like skin rash, itching or hives, swelling of the face, lips, or tong ue breathing problems fast, irregular heartbeat high blood pressure pain that was controlled by narcotic pain medicine seizures Side effects that usually do not require medical attention (report to your doctor or health respiratory care program director if they continue or are bothersome): anxious chills diarrhea fever headache muscle pain nausea, vomiting nose irritation like dryness, congestion, and swelling sweating What may interact with this medicine? This medicine is only used during an emergency. No interactions are expected during emergen cy use. What if I miss a dose? This does not apply. Where should I keep my medicine? Keep out of the reach of children. Store between 4 and 40 degrees C (39 and 104 degrees F). Do not freeze. Throw away any unus ed medicine after the expiration date. Keep in original box until ready to use. What should I tell my health care provider before I take this medicine? They need to know if you have any of these conditions: drug abuse or addiction heart disease an unusual or allergic reaction to naloxone, other medicines, foods, dyes, or preservati ves or trying to get breast-feeding What should I watch for while using this medicine? Keep this medicine ready for use in the case of a narcotic overdose. Make sure that you hav e the phone number of your doctor or health respiratory care program director and local hospital ready. You may need to have additional doses of this medicine. Each nasal spray contains a single dose. Some emergencies may require additional doses. After use, bring the treated person to the nearest hospital or call 911. Make sure the [facility] health respiratory care program director knows that the person has received an injection of this medici ne. You will receive additional instructions on what to do during and after use of this medi cine before an emergency occurs. NOTE:This sheet is a summary. It may not cover all possible information. If you have questi ons about this medicine, talk to your doctor, pharmacist, or health care provider. Copyright 2020 [employer] documented in this encounter Progress Notes Deyvi Kovacs ARNP - 11/14/2019 9:25 AM PDT Subjective: Chief Complaint: Neck Pain Patient ID: Ivan Giles is a 54 y.o. male HPI Ivan Giles is a 54 y.o. male who presents today with long history of neck and low ba ck pain. He was scheduled to undergo neck and low back injections in July but canceled due to the COVID-19 pandemic. The last time he was in clinic he he was observed by staff with seizure-like activity and taken to the emergency department by ambulance. He was discharged home later that day. He has a complicated medical history in including positive HIV status and also full pain sources. Unfortunately, recent injections have not been particularly be neficial. He has struggled with finding a new primary care physician to manage not only his regular medications but pain medications as well. He falls frequently due to low back and leg symptoms. He was written a prescription for oxycodone 10 mg every 6 hours which is offe ring some short-term relief. He was prescribed 9 tablets 10/23 and still has 2 tablets left. Negative side effects from the medication. His blood pressure continues to be elevated and he is working with his physician on medication changes. He is following back up to discuss treatment options His pain is currently a 7 out of 10 on average is a 4 out of 10 at its worst is a 10 out of 10 and at its least is a 1 out of 10. Conservative therapies tried and helped include at least a 6 week trial of NSAIDs and the l idocaine patch. He gets some short-term relief with ibuprofen. Review of Systems Constitutional: Negative for chills and fever. HENT: Negative for trouble swallowing. Eyes: Negative for visual disturbance. Respiratory: Negative for shortness of breath. Cardiovascular: Negative for chest pain. Gastrointestinal: Negative for abdominal pain. Genitourinary: Negative for dysuria. Musculoskeletal: Positive for back pain and neck pain. Negative for arthralgias and myalgia s. Skin: Negative for rash. Neurological: Negative for dizziness. Psychiatric/Behavioral: Negative for sleep disturbance. Objective: BP (!) 208/126 | Pulse 68 | Ht 1.676 m (5' 6") | Wt 77.1 kg (170 lb) | BMI 27.44 kg/m Physical Exam Constitutional: He is oriented to person, place, and time. He appears well-developed and we ll-nourished. No distress. HENT: Head: Normocephalic and atraumatic. Eyes: Conjunctivae are normal. Right eye exhibits no discharge. Left eye exhibits no discha rge. Neck: Normal range of motion. No tracheal deviation present. No thyromegaly present. Cardiovascular: Normal rate and regular rhythm. Exam reveals no friction rub. No murmur heard. Pulmonary/Chest: Effort normal and breath sounds normal. No respiratory distress. Abdominal: Soft. Bowel sounds are normal. There is no abdominal tenderness. Neurological: He is alert and oriented to person, place, and time. No cranial nerve deficit . Skin: Skin is warm and dry. No rash noted. He is not diaphoretic. Psychiatric: He has a normal mood and affect. Cervical: Axial mechanical cervical pain upon exam. Severe myofascial tightness and tender ness in the musculature surrounding the cervical spine and upper thoracic regions. Lumbar: Axial mechanical lumbar pain upon exam Motor: Generalized weakness throughout bilateral upper extremities, left greater than right . Assessment and Plan: 1. Cervical radicular pain 2. Degeneration of intervertebral disc of cervical region 3. Arthropathy of cervical facet joint 4. Degenerative lumbar spinal stenosis 5. Lumbar herniated disc 6. Degeneration of thoracic intervertebral disc 7. Facet arthritis of lumbar region 8. longterm current use of opiate analgesic No orders of the defined types were placed in this encounter. Medications Placed This Encounter Medications naloxone (NARCAN) 4 mg/nasal spray Si spray by Nasal route as needed for Decreased Responsiveness (May repeat with secon d device into other nostril after 2 minutes). Dispense: 2 each Refill: 1 May substitute other formulations per insurance. oxyCODONE 10 MG TABS Sig: Take 1 tablet by mouth every 6 hours as needed. Dispense: 88 tablet Refill: 0 Ivan Giles is a 54 y.o. male who presents today with long history of neck and low ba ck pain. He was scheduled to undergo neck and low back injections in July but canceled due to the COVID-19 pandemic. The last time he was in clinic he he was observed by staff with seizure-like activity and taken to the emergency department by ambulance. He was discharged home later that day. He has a complicated medical history in including positive HIV status and also full pain sources. Unfortunately, recent injections have not been particularly be neficial. He has struggled with finding a new primary care physician to manage not only his regular medications but pain medications as well. He falls frequently due to low back and leg symptoms. He was written a prescription for oxycodone 10 mg every 6 hours which is offe ring some short-term relief. He was prescribed 9 tablets 10/23 and still has 2 tablets left. Negative side effects from the medication. His blood pressure continues to be elevated and he is working with his physician on medication changes. He is following back up to discuss treatment options Given that COVID 19 pandemic and the patient's immunosuppressed status I do not recommend f urther epidural steroid injections at this time. He is scheduled to establish care with Dr. Mendoza on 12/05. I would like him to follow back up in our office once he has settled on a medication regimen with Dr. Mendoza. I have written a prescription for oxycodone 10 mg kerry ry 6 hours pain control until the patient can see Dr. Mendoza. Prescription also written fo odalys Gardner due to M EQ greater than 50. This is a 1 time prescription until his appointment o n 12/05. Wrongly advised him to continue to work with his PCP on blood pressure management. He is in no apparent distress today and I see no reason to send him back to the ED when thi s is a continuing problem that is being addressed. The patient verbalized understanding. Ample time was given for questions. All of the questions were answered to the patient's sa tisfaction. The patient was encouraged to use proper body mechanics to avoid increased pain , continue heat/cold therapy, home exercises, and medications as prescribed. The patient is in agreement with the plan. The following portions of the patient's histories were reviewed and updated as appropriate and are available elsewhere in the chart: Allergies, current medications, past family histor y, past medical history, past surgical history, past surgical history and problem list. The se were also stored in the patient's chart. LEIA Martinez has created this entry using [employer] and [employer] macros. The entry has been reviewed and there may still exist sound alike word errors. documented in this encounter Plan of Treatment [...] [place] | | | | | | [address] | | | | | | | | +--------+---------+ + + + documented as of this encounter Visit Diagnoses + + | Diagnosis | + + | Cervical radicular pain - Primary Brachial neuritis or radiculitis nos | + + | Degeneration of intervertebral disc of cervical region | + + | Arthropathy of cervical facet joint Cervical spondylosis without myelopathy | + + | Degenerative lumbar spinal stenosis Spinal stenosis, lumbar region, without | | neurogenic claudication | + + | Lumbar herniated disc Displacement of lumbar intervertebral disc without myelopathy | + + | Degeneration of thoracic intervertebral disc Degeneration of thoracic or | | thoracolumbar intervertebral disc | + + | Facet arthritis of lumbar region Lumbosacral spondylosis without myelopathy | + + | longterm current use of opiate analgesic Encounter for long-term (current) use of | | other medications | + + documented in this encounter
--- OUTSIDE RECORDS SUMMARY | ~2019-11-25 | XMS | Encounter Summary ---
Demographics + + + | Address | [address] | | | [place] [address] | + + + | Home Phone | | + + + | Preferred Language | Unknown | + + + | Marital Status | | + + + | Roman Catholic Affiliation | 1013 | + + + | Race | Unknown | + + + | Ethnic Group | Unknown | + + + Author + + + | Author | [facility] | | | and [place] | + + + | Organization | [facility] | | | [...] [place] | | | | | [address] | | + + + + + Care Team Providers + +------+ + | Care Media Clerk Name | Role | Phone | + +------+ + PCP | Unavailable | + +------+ + Encounter Details +--------+ + + + + | Date | Type | Department | Care Team | Description | +--------+ + + + + | 12/25/ | Hospital | [facility] | Woody Martinez | CALCULUS OF KIDNEY | | 2004 | Encounter | CON[address] | MD [address]rian [address] | | | | | [address] | [address], | | | | | [place], [place] | [place] [address] | | | | | [address] | [phone] | | | | | [phone] | | | +--------+ + + + [...] 12/05/ | Office | Pain Medicine | iVtaliy Mendoza, | | | 2019 | Visit | | DO [address] | | | | | | [place] | | | | | | [address] | | | | | | | | +--------+---------+ + + + documented as of this encounter Visit Diagnoses + + | Diagnosis | + + | Calculus of kidney | + + documented in this encounter"
--- OUTSIDE RECORDS SUMMARY | ~2019-11-25 | XMS | Encounter Summary ---
Demographics + + + | Address | [address] | | | [place] [address] | + + + | Home Phone | | + + + | Preferred Language | Unknown | + + + | Marital Status | Unmarried Domestic Partner | + + + | Presybeterian Affiliation | NON | + + + | Race | White | + + + | Ethnic Group | Not or | + + + Author + + + | Author | [facility] | + + + | Organization | [facility] | + + + | Address | Unknown | + + + | Phone | Unavailable | + + + Support + + + + + | Name | Relationship | Address | Phone | + + + + + | Gabriel Greenberg | ECON | [address] | | | | | [place] | | | | | [address] | | + + + + + Care Team Providers + +------+ + | Care Chemist Physical Name | Role | Phone | + +------+ + | Jax Cabrera MD | PCP | | + +------+ + Reason for Visit + + + | Reason | Comments | + + + | Telephone follow-up | 03/08/17 | + + + Encounter Details +--------+ + + + + | Date | Type | Department | Care Team | Description | +--------+ + + + + | 03/09/ | Telephone | Endoscopic | Clemente Quan, | Telephone follow-up | | 2016 | | Procedural Unit at | MD [address] | (03/08/17) | | | | [address] | [address] | | | | | [address] | [place], [place] | | | | | [facility], | [address] | | | | | 4th floor [place], | [phone] | | | | | [place] [address] | | | | | | [phone] | | | +--------+ + + + [...]
--- OUTSIDE RECORDS SUMMARY | ~2019-11-25 | XMS | Encounter Summary ---
Demographics + + + | Address | [address] | | | [place] [address] | + + + | Home Phone | | + + + | Preferred Language | Unknown | + + + | Marital Status | Unmarried Domestic Partner | + + + | Yarsanism Affiliation | NON | + + + | Race | White | + + + | Ethnic Group | Not or | + + + Author + + + | Author | [facility] | + + + | Organization | [facility] | + + + | Address | Unknown | + + + | Phone | Unavailable | + + + Support + + + + + | Name | Relationship | Address | Phone | + + + + + | Gabriel Greenberg | ECON | [address] | | | | | [place] | | | | | [address] | | + + + + + Care Team Providers + +------+ + | Care Security Guard Name | Role | Phone | + +------+ + | Jax Cabrera MD | PCP | | + +------+ + Reason for Visit + + + | Reason | Comments | + + + | Medication actions | | + + + Encounter Details +--------+ + + + + | Date | Type | Department | Care Team | Description | +--------+ + + + + | 04/30/ | Telephone | [facility] | Fred | Medication actions | | 2016 | | at [facility] | MD Caio | | | | | [address] | [address] | | | | | [address] | [address] [place], | | | | | Pavilion, 3rd floor | [place] [address] | | | | | [place], [place] | [phone] | | | | | [address] | | | | | | [phone] | | | +--------+ + + + [...]
--- OUTSIDE RECORDS SUMMARY | ~2019-11-25 | XMS | Encounter Summary ---
Demographics + + + | Address | [address] | | | [place] [address] | + + + | Home Phone | | + + + | Preferred Language | Unknown | + + + | Marital Status | Unmarried Domestic Partner | + + + | Pentecostalism Affiliation | NON | + + + | Race | White | + + + | Ethnic Group | Not or | + + + Author + + + | Author | [facility] | + + + | Organization | [facility] | + + + | Address | Unknown | + + + | Phone | Unavailable | + + + Support + + + + + | Name | Relationship | Address | Phone | + + + + + | Gabriel Greenberg | ECON | [address] | | | | | [place] | | | | | [address] | | + + + + + Care Team Providers + +------+ + | Care Piece Dye Worker Name | Role | Phone | [...] + + | 02/24/ | Office | [facility] | Fred | Influenza vaccine | | 2017 | Visit | at [facility] | MD Caio | needed (Primary Dx); | | | | [address] | [address] | HIV (human | | | | [address] | [place], | immunodeficiency | | | | Pavilion, 3rd floor | [place] [address] | virus infection) | | | | [place], [place] | [phone] | ([facility]); Need for | | | | [address] | | pneumococcal | | | | [phone] | | vaccination | +--------+---------+ + + [...] Bradley is frustrated with medical care in [facility]. He has not seen his PCP recently and would like to change [place] [facility]. Review of Systems: As above, all other [...] gait. Labs: Lab Results Component Value Date [id number] 664 08/17/2016 [id number] 30.3 08/17/2016 HIVPCR Undetected 08/17/2016 Lab Results Component Value Date RPR Non Reactive 06/17/2016 Lab Results Component Value Date CHOL 155 06/17/2016 LDL 96 06/17/2016 HDL 50 06/17/2016 TRI 47 06/17/2016 Lab Results Component Value Date [id number] 13.6 08/17/2016 Last CBC, CMP reviewed with patient. Assessment and Plan: (Z23) Influenza vaccine needed (primary encounter diagnosis) Plan: STAFF TO GIVE: INFLUENZA VACC, QUADRIVALENT, 0.5 ML VIAL, IM (B20) HIV (human immunodeficiency virus infection) ([facility]) Plan: CBC, WITH DIFFERENTIAL, CD4 (T CELL), BLOOD, COMPLETE METABOLIC SET (NA,K,CL,CO2,BUN,CREAT,GLUC,CA,AST,ALT,BILI TOTAL,ALK PHOS,ALB,PROT TOTAL), HIV QUANTITATIVE PCR, PLASMA, HEPATITIS B BY PCR, LAB OTHER Ivan is a 50 y.o. male with history of above who presents for follow up of his HIV and o ther chronic issues. # HIV (human immunodeficiency virus infection) ([facility]): (viral load UD 08/2016 & CD4 372 [...] arises. I spent more than 30 minutes [id number] with the patient of which greater than [...] appropriate in the role of his HIV customer support consultant to prescri be chronic pain medications. He agrees to look into this. 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 No Prior history of Guillain-Venedocia syndrome? No (For patients receiving Fluarix): Allergy [...] [facility] | | | LAB NAME | [facility] [facility] | | REFERENCE | | | | [address] | | LAB | | | | [place] [address] | | | | + + + [...] | + + + + + | [facility] | [address] | [place] [address] | | | SERVICES, CORE | PARK [...] + + + | [facility] | [address] | [place] [address] | | | DIAGNOSTIC | [address] [...] + + + + | [facility] | [address] | [place] [address] | | | DIAGNOSTIC | [address] [...] | | | LABORATORY | | | MICRONESIAN | | | SERVICES, | | | [...] | + + + + + | [facility] | [address] | [place] [address] | | | SERVICES, CORE | [facility]ANK[facility] [...] LABORATORY | | performance characteristics determined by [email or web address]. It has | SERVICES, | | not [...] | + + + + + | [facility] [employer] | [address] | [place] [address] | | | SERVICES, SPECIAL | PARK [...]
--- OUTSIDE RECORDS SUMMARY | ~2019-11-25 | XMS | Encounter Summary ---
Demographics + + + | Address | [address] | | | [place] [address] | + + + | Home Phone | | + + + | Preferred Language | Unknown | + + + | Marital Status | | + + + | Baptist Affiliation | 1013 | + + + | Race | Unknown | + + + | Ethnic Group | Unknown | + + + Author + + + | Author | [facility] | | | and [place] | + + + | Organization | [facility] | | [...] [place] | | | | | [address] | | + + + + + Care Team Providers + +------+ + | Care Shrimp Picker Name | Role | Phone | + +------+ + PCP | Unavailable | + +------+ + Encounter Details +--------+ + + + + | Date | Type | Department | Care Team | Description | +--------+ + + + + | 09/25/ | Hospital | [facility] | Alexus Hanna | | | 1997 - | Encounter | [facility] | [address] | | | | | CLINICAL DECISION | [place], [place] | | | 09/27/ | | [address] | [address] | | | 1996 | | [place], [place] | [phone] | | | | | [address] | | | | | | [phone] | | | +--------+ + + + [...] [place] | | | | | | [id number] | | | | | | | | +--------+---------+ + + + documented as of this encounter Visit Diagnoses Not on filedocumented in this encounter"
--- OUTSIDE RECORDS SUMMARY | ~2019-11-25 | XMS | Encounter Summary ---
Demographics + + + | Address | [address] | | | [place] [address] | + + + | Home Phone | | + + + | Preferred Language | Unknown | + + + | Marital Status | | + + + | Mormon Affiliation | 1013 | + + + | Race | Unknown | + + + | Ethnic Group | Unknown | + + + Author + + + | Author | [facility] | | | and [place] | + + + | Organization | [facility] | | | [...] [place] | | | | | [address] | | + + + + + Care Team Providers + +------+ + | Care Carpet Tile Layer Name | Role | Phone | + +------+ + | No, Unknownpcp | PCP | | + +------+ + Encounter Details +--------+ + + + + | Date | Type | Department | Care Team | Description | +--------+ + + + + | 12/13/ | Hospital | [facility] | Conversion | Pain | | 2014 | Encounter | CONVERSION DEP [address] | Transaction, | | | | | [address] | Provider Unknown | | | | | [facility] | [phone] | | | | | [address] | | | | | | [phone] | | | +--------+ + + + [...] [place] | | | | | | [address] | | | | | | | | +--------+---------+ + + + documented as of this encounter Procedures + +--------+ + + + | Procedure Name | Priori | Date/Time | Associated Diagnosis | Comments | | | ty | | | | + +--------+ + + + | FL C ARM < 1 HOUR | Routin | 07/05/2012 | | Results for this | | | e | 5:06 AM | | procedure are in the | | | | PST | | results section. | + +--------+ + + + documented in this encounter Results FL C-Arm < 1 Hour (07/05/2012 5:06 AM PST) + + | Specimen | + + | | + + + + + | Narrative | Performed At | + + + | This is a non-reportable procedure without a radiologist report and | | | is used for image storage only | | + + + + + | Procedure Note | + + | El Reyes Conversion - 12/30/2018 8:00 PM PDT This is a non-reportable procedure | | without a radiologist report and isused for image storage only | + + documented in this encounter Visit Diagnoses + + | Diagnosis | + + | Pain Generalized pain | + + documented in this encounter"
--- OUTSIDE RECORDS SUMMARY | ~2019-11-25 | XMS | Encounter Summary ---
Demographics + + + | Address | [address] | | | [place] [address] | + + + | Home Phone | | + + + | Preferred Language | Unknown | + + + | Marital Status | | + + + | Episcopalian Affiliation | 1013 | + + + | Race | Unknown | + + + | Ethnic Group | Unknown | + + + Author + + + | Author | [facility] | | | and [place] | + + + | Organization | [facility] | | [...] [place] | | | | | [address] | | + + + + + Care Team Providers + +------+ + | Care Workers Compensation Consultant Name | Role | Phone | + +------+ + PCP | Unavailable | + +------+ + Encounter Details +--------+ + + + + | Date | Type | Department | Care Team | Description | +--------+ + + + + | 02/18/ | Hospital | [facility] | Alexis Gonzales MD | Calculus of kidney | | 2009 | Encounter | CONVERSION DEP [address] | [address] | | | | | [place] | [place], [place] | | | | | [place], [place] | [address] | | | | | [address] | | | | | | [phone] | | | +--------+ + + + [...] | | 2019 | Visit | | [address] | | | | | | [place] | | | | | | [address] | | | | | | | | +--------+---------+ + + + documented as of this encounter Procedures + +--------+ + + + | Procedure Name | Priori | Date/Time | Associated Diagnosis | Comments | | | ty | | | | + +--------+ + + + | CT RENAL STONE WO | Routin | 02/18/2010 | | Results for this | | CONTRAST | e | 10:31 AM | | procedure are in the | | | | PDT | | results section. | + +--------+ + + + documented in this encounter Results CT Renal Stone Wo Contrast (02/18/2010 10:31 AM PDT) + + | Specimen | + + | | + + + + + | Narrative | Performed At | + + + | [facility] [address] Ph: | | | Patient Name: MICHAEL CHAVEZ Date of : | | | 1965 Medical Record: [id number] Account: [id number] | | | Exam Date/Time: 02/18/2010 10:30 Ordering | | | Physician: ALEXIS Zhang Detail: [id number] Exam Description: CT | | | URINARY TRACT (ABDOMEN/PELVIS) | | | | | | 02/18/2010 10:30 AM HISTORY: Right ureteral stone. Bilateral | | | nephrolithiasis. TECHNIQUE: 5-mm noncontrast CT sections through | | | the abdomen and pelvis. COMPARISON: Most recent CT abdomen and | | | pelvis dated November 23. FINDINGS: Minimal linear scarring or | | | subsegmental atelectasis remains at the lung bases. The heart base is | | | of normal size. The liver, spleen, pancreas, and adrenal glands | | | are normal. A punctate right upper pole nephrolith is again noted, 1 | | | mm in size. Otherwise the right kidney is normal, with interval | | | resolution of mild right hydronephrosis. The right ureterolith is no | | | longer found. The urinary bladder and left ureter are normal. Two | | | punctate left upper pole nephroliths are seen, 1 to 2 mm in size. | | | Otherwise the left kidney is normal. Incidental punctate | | | calcifications are again noted in the central prostate gland. No | | | significant enteric abnormality is found. A small fat filled right | | | inguinal hernia is noted. Abdominal aorta and its branches are | | | normal. No pathologically enlarged lymph nodes are found. No | | | significant bony abnormalities are identified. There is unchanged | | | evidence of cholecystectomy. IMPRESSION: 1. Interval | | | resolution of right ureteral stone. 2. Unchanged punctate | | | bilateral upper pole nephrolithiasis. 3. Small fat filled right | | | inguinal hernia. Electronically signed by Jax Pickens MD on | | | 02/18/2010 11:57 AM | | + + + + + | Procedure Note | + + | El Reyes Conversion - 01/08/2019 4:04 PM PDT | | [facility] | | [facility] [address] | | | | | | Patient Name: MICHAEL CHAVEZ | | Date of : 1965 | | Medical Record: [id number] | | Account: [id number] | | | | | | Exam Date/Time: 02/18/2010 10:30 | | Ordering Physician: ALEXIS GONZALES | | Order Detail: [id number] | | Exam Description: CT URINARY TRACT (ABDOMEN/PELVIS) | | | | 02/18/2010 10:30 AM | | | | HISTORY: | | Right ureteral stone. Bilateral nephrolithiasis. | | | | TECHNIQUE: | | 5-mm noncontrast CT sections through the abdomen and pelvis. | | | | COMPARISON: | | Most recent CT abdomen and pelvis dated November 23. | | | | FINDINGS: | | Minimal linear scarring or subsegmental atelectasis remains at the lung | | bases. The heart base is of normal size. | | | | The liver, spleen, pancreas, and adrenal glands are normal. A punctate | | right upper pole nephrolith is again noted, 1 mm in size. Otherwise the | | right kidney is normal, with interval resolution of mild right | | hydronephrosis. The right ureterolith is no longer found. The urinary | | bladder and left ureter are normal. Two punctate left upper pole | | nephroliths are seen, 1 to 2 mm in size. Otherwise the left kidney is | | normal. Incidental punctate calcifications are again noted in the central | | prostate gland. | | | | No significant enteric abnormality is found. A small fat filled right | | inguinal hernia is noted. | | | | Abdominal aorta and its branches are normal. No pathologically enlarged | | lymph nodes are found. No significant bony abnormalities are identified. | | | | There is unchanged evidence of cholecystectomy. | | | | | | | | IMPRESSION: | | 1. Interval resolution of right ureteral stone. | | | | 2. Unchanged punctate bilateral upper pole nephrolithiasis. | | | | 3. Small fat filled right inguinal hernia. | | | | | + + documented in this encounter Visit Diagnoses + + | Diagnosis | + + | Calculus of kidney | + + documented in this encounter"
--- OUTSIDE RECORDS SUMMARY | ~2019-11-25 | XMS | Encounter Summary ---
Demographics + + + | Address | [address] | | | [place] [address] | + + + | Home Phone | | + + + | Preferred Language | Unknown | + + + | Marital Status | | + + + | Temple Affiliation | 1013 | + + + | Race | Unknown | + + + | Ethnic Group | Unknown | + + + Author + + + | Author | [facility] | | | and [place] | + + + | Organization | [facility] | | | and [...] [place] | | | | | [address] | | + + + + + Care Team Providers + +------+ + | Care Performing Arts Road Manager Name | Role | Phone | + +------+ + | Jax Cabrera MD | PCP | | + +------+ + Reason for Visit +--------+--------+ + | Reason | Onset | Comments | | | Date | | +--------+--------+ + | Other | 07/20/ | follow up post procedure. | | | 2019 | | +--------+--------+ + Encounter Details +--------+ + + + + | Date | Type | Department | Care Team | Description | +--------+ + + + + | 07/20/ | Telephone | [facility] | Mara Cárdenas RN | Other (follow up | | 2019 | | INTERVENTIONAL PAIN | | post procedure. ) | | | | MGMT [address] | | | | | | [address] [place], | | | | | | [place] [address] | | | | | | [phone] | | | +--------+ + + + [...] this encounter Miscellaneous Notes Telephone Encounter - Mara Cárdenas RN - 07/21/2019 2:37 PM PSTPt has no working phone skylar walters Not able to call at this time. Mara Cárdenas RN Elda pan in this encounter Plan of Treatment +--------+---------+ + + + | Date | Type | Specialty | Care Team | Description | +--------+---------+ + + + | 12/05/ | Office | Pain Medicine | Vitaliy Mendoza, | | 2019 | Visit | | DO [address] | | | | | | [place] | | | | | | [id number] | | | | | | | | +--------+---------+ + + + documented as of this encounter Visit Diagnoses Not on filedocumented in this encounter"
--- OUTSIDE RECORDS SUMMARY | ~2019-11-25 | XMS | Encounter Summary ---
Demographics + + + | Address | [address] | | | [place] [address] | + + + | Home Phone | | + + + | Preferred Language | Unknown | + + + | Marital Status | Unmarried Domestic Partner | + + + | Latter-Day Affiliation | NON | + + + | Race | White | + + + | Ethnic Group | Not or | + + + Author + + + | Author | [facility] | + + + | Organization | [facility] | + + + | Address | Unknown | + + + | Phone | Unavailable | + + + Support + + + + + | Name | Relationship | Address | Phone | + + + + + | Gabriel Greenberg | ECON | [address] | | | | | [place] | | | | | [address] | | + + + + + Care Team Providers + +------+ + | Care Car Retarder Operator Name | Role | Phone | + +------+ + | Jax Cabrera MD | PCP | | + +------+ + Reason for Visit +--------+ + | Reason | Comments | +--------+ + | HIV | | +--------+ + Encounter Details +--------+---------+ + + + | Date | Type | Department | Care Team | Description | +--------+---------+ + + + | 04/03/ | Office | [facility] Primary Care | Ibarra, | Human | | 2017 | Visit | at [facility] | MD Caio | immunodeficiency | | | | [address] | [address] | virus (HCC) (Primary | | | | [address] | [address] [place], | Dx) | | | | Pavilion, 3rd floor | [place] [address] | | | | | [place], [place] | [phone] | | | | | [address] | | | | | | [phone] | | | +--------+---------+ + + + Social History [...] + + + | Blood Pressure | 142/94 | 08/17/2016 2:48 PM | | | | | PDT | | + + + + + | Pulse | 70 | 08/17/2016 2:48 PM | | | | | PDT | | + + + + + | Temperature | 37.1 C (98.7 F) | 08/17/2016 2:48 PM | | | | | PDT [...] + + + + | Weight | 75.3 kg (165 lb 14.4 | 08/17/2016 2:48 PM | | | | oz) | PDT | | + + + + + | Height | - | - | | + + + + + | Body Mass Index | 26.78 | 06/17/2016 1:26 PM | | | | | PST | | + + + + + documented in this encounter Patient Instructions Patient Instructions Renetta Teixeira MD - 08/17/2016 2:50 PM PDTIt was a pleasure seeing you in clinic today! It sounds like things are improving for you in terms of your mood and many of your chronic conditions. This is great news and I encourage you to continue to take your valproic acid as it sounds like this is a helpful medication for you. I encourage you to follow up with your primary care provider in terms of your chronic pain management. Please obtain a viral load today on your new HIV medication regimen. I encourage you to continue taking your HIV medications regularly and faithfully as you hav e to prevent your risk of transmitting HIV to others and also to staying healthy and safe yo urself. documented in this encounter Progress Notes Caio Ibarra MD - 08/17/2016 2:50 PM PDTI am familiar with Mr. Giles ([facility] history and the current active problems. I discussed the history, examination findings, management options and treatment plan in detail with internal medicine resident Dr. Mandel at the time of this visit on 08/17/16. I was physically present in the examination room marilu santiago lainez portions of the service provided, including a review of review of decision-making that occurred. I provided personal direction in the services rendered, ensuring that reasonable and necessary care was provided. I have reviewed the resident s note and I agree with the findings, assessment, advice, orders and plan as they are documented with the following toby tion. I advised Mr. Giles to continue to take 100% of the prescribed antiretroviral doses to avoid developing resistance and to obtain maximum benefit from medications. He was not unde tectable before, but with his improved adherence, hopefully that is unchanged. He continue t o need care around other non-HIV issues, including his mental health, seizure disorder and h ypertension. His distance from the clinics, precludes regular follow up in [place] and so jese sanz will continue to get care with his limb driver in [facility]. Caio Ibarra MD Renetta Colindres M D - 08/17/2016 2:50 PM PDT Internal Medicine Clinic/HIV Clinic Patient Active Problem [...] have been marked as taking for the 08/17/16 encounter (Office Vis it) with Caio Ibarra MD. Chief Complaint Patient presents with Hives F/U History of Present Illness: Ivan is a 50 y.o. male with history of above who presents for follow up. No past encoun ter found with Jax Cabrera MD. #HIV: Ivan has missed 0 doses of his antiretroviral therapy during the past 4 weeks. He is lexie erating this regimen well. Last visit started Dolutegravir (Tivicay) 50 mcg daily (given his co-infecton with HBV, will need to remain on a tenofovir-based regimen). He started this me dication on 06/2016. Notes this medication is being well-tolerated. 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 Notes he has had two episodes of mild nausea in the last month. He used Ph energan one of the times, and Ondansetron the other. Both were equally effective. #Pain: The patient has seen 13 different primary care physicians in the last 2 years. He describes extensive interpersonal challenges with physicians; feels they do not take his chronic pain seriously nor his "need to be on opioids" given his prior history of IVDU. He says he will have pain "crises" 3-4 times a year. He has recently decided to go onto THC to manage his pa in. Notes his pain is on the bottom crease of lower back, goes up 9 inches into rib cage. De scribes it as being piercing pain that shoots up into shoulder blades; also a focus of pain that originates in his hips, radiating to calves or ankles. Does endorse associated numbness and tingling down legs. Also describes radiating pain from feet upwards he will get if he w alks too long (>12 blocks). Laying flat makes the pain better, while bending over or sitting for too long makes it worse. Notes that imaging showed lumbar degenerative changes (done by Dr. Ashish Staley). Previously on oxycodone for this pain; Rx by Woody Martinez at [facility] in [facility], but has not had a script for this in 2 years as no longer seeing th is Dr. Valentin, based on changes to insurance and billing. Has instead been using epson salt s, "Icy Hot" muscular rub and "some cream for back spasms." Last provider with whom he discu ssed his pain was Dr. Cabrera in [place] but he felt the clinic didn't understand his pain needs. He has just established with a new PCP 2 weeks ago in [place], [place], at [facility]. #Elevated blood pressure: SBP 150s here in clinic. Patient denies taking his BPs at home; says he needs a new BP cuff , his last one broke over a year ago. Per patient, still takes telmisartan 80 daily faithful ly. Denies dizziness, pre-syncope or syncopal episodes. #Seizure disorder: Notes he is on valproic acid, takes it faithfully. Endorses more infrequent seizures recent ly (had a petit mal seizure last week, last grand mal seizure was >1 month ago). Has stopped driving due to his seizure disorder. #Bipolar disorder: Also takes valproic acid for his Bipolar disorder. Notes improved mood recently, more energ y. Per partner, he is "easier to live with". Denies anxiety, depressive symptoms, no manic s ymptoms #Migraines: Had one migraine 3 weeks ago. He took sumatriptan for it which aborted it immediately #Asthma: He is doing well on his currently medications, down to once a month exacerbations Ivan denies any recent acute illnesses. He denies fevers, chills, night sweats, headache (had one migraine 3 weeks ago) change in vision, odynophagia, cough, shortness of breath, c hest pain, abdominal pain, vomiting, diarrhea, peripheral paresthesias, weight loss or rashe s. Review of Systems: As above, all other systems are negative. Reviewed Social and Family History and [facility] - Lives with in [place], [place]. Habits: - never smoker - never drinking - IVDU 27 years ago; does consume edible THC once weekly Physical Examination: BP 150/88 | Pulse 68 | Temp 36.6 C (97.9 F) | Ht 1.676 m (5' 6") | Wt 73.71 kg (162 lb 8 oz) | BMI 26.24 kg/(m^2) General: He is a well developed, well nourished alert, oriented, euthymic-appearing male, alert and oriented x 3. Skin: +Bg's sign bilaterally. Lymph nodes: No significant cervical, supraclavicular or axillary adenopathy appreciated. HEENT: EOMI. PERRL. Conjunctivae pink. Sclera anicteric. Oropharynx: no oral hairy leukop obdulio, thrush or exudates. Mucous membranes are moist. Dentition appears good. Neck: Supple. Back: Normal stature, no spinal tenderness. Lungs: Clear to auscultation bilaterally with normal respiratory effort. Cardiac: Regular rhythm, normal rate. +HEATHER 3/6 best heart at [facility]. Abdomen: Nondistended, normal active bowel sounds. Soft, nontender. No hepatosplenomegaly or masses palpated. Extremities: No clubbing or edema. Neurologic: Alert and oriented x3. Normal gait. Labs: Lab Results Component Value Date [id number] 02/07/2016 [id number] 28.3* 02/07/2016 HIVPCR [id number]* 02/07/2016 Lab Results Component Value Date RPR Non Reactive 02/07/2016 No results found for: CHOL, LDL, HDL, TRI Lab Results Component Value Date [id number] 25.9 02/07/2016 Last CBC, CMP reviewed with patient. Ivan is a 50 y.o. male with history of above who presents for follow up of his HIV and o ther chronic issues. 1. HIV (human immunodeficiency virus infection) ([facility]) Encouraged patient to continue with prezcobix and truvada daily. Reinforced importance of c onsistent dosing to limit resistance and improve disease management Plan: Continue prezcobix and truvada daily. Will obtain the following labs today: - CBC, CMP, HIV PCR and CD4 count 2. Nausea Encouraged patient to try ondansetron for nausea as phenergan can be more sedating and thus is not an optimal first line medication. Had given him a supply of this previous visit, [facility] still has a sufficient quantity. - Ondansetron 4 mg oral tablet; Take one tablet by mouth daily as needed for nausea 3. HTN Patient with high SBP in clinic to 150s today. Recommend patient work with his PCP regardin g BP management. Is currently on Amlodipine 10 mg daily and Telmisartan 80 mg daily. 4. 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 Sounds by history like sciatica 2/2 to degenerative disc disease. Would recommend patient f bhargavi up with PCP regarding chronic pain management, but strategies that he can try include scheduled APAP, Diclofenac gel or Lidocaine gel. 5. Bipolar affective disorder, remission status unspecified ([facility]) -Continue valproic acid -Follow up with PCP/MH provider 6. Convulsions, unspecified convulsion type ([facility]) -Continue valproic acid -Follow up with PCP/MH provider 7. Other type of migraine - Imitrex as needed 8. Mild intermittent asthma without complication - Stable to improved - albuterol (PROAIR HFA) 90 mcg/actuation inhalation HFA aerosol inhaler; Inhale 1-2 puffs by mouth every six hours as needed. Contact provider if using >1 inhaler/month. (Pharmacy: [facility] whichever albuterol is on formulary) Dispense: 1 Inhaler; Refill: 2 I asked patient during visit to return to clinic in 4 months for routine follow up, sooner if acute issue arises. I spent more than 30 minutes [id number] with the patient of which greater than 50% was sp ent counseling the patient regarding their HIV and other chronic issues. Renetta Teixeira MD Billy Clay MA - 2:50 PM PDT Patient is here today to address Chief Complaint Patient presents with Hives F/U Vitals BP 142/94 | Pulse 70 | Temp (Src) 37.1 C (98.7 F) (Oral) | Wt 75.3 kg (165 lb 14.4 oz) | BMI 26.78 kg/(m^2) Patient reports a pain level of 06 - Severe today. History Smoking Status Never Smoker Smokeless Tobacco Not on file Allergies Allergen Reactions Gabapentin Unknown and Hallucinations Loss of memory, headache Loss of memory, headache Phenytoin Diarrhea and Unknown h/a Phenytoin Sodium Extended Unknown h/a Medications reconciled with patient? Yes . Health Maintenance Health Maintenance Due Topic Date Due PPSV PNEUMOCOCCAL VACCINE 03/10/2016 TB SCREENING (PPD/TST,QUANTIFERON) 06/18/2016 Shared Decision Making: Not completed at this visit SBIRT: Not due documented in this encou nter Plan of Treatment Not on filedocumented as of this encounter Results VITAMIN D, 25-HYDROXY, SERUM (08/17/2016 4:14 PM [...] | + + + + + | [facility] | [address] | [place] [address] | | | SERVICES, CORE | FRANKY [...] | | | LABORATORY | | | DANISH | | | SERVICES, | | | [...] | + + + + + | [facility] | [address] | [place] [address] | | | SERVICES, CORE | FRANKY [...] LABORATORY | | performance characteristics determined by [employer]. It has | SERVICES, | | not [...] | + + + + + | [facility] | [address] | [place] [address] | | | SERVICES, SPECIAL | [address] | | | | IMM + [...] HIV-QNT PCR | Undetected | Undetected, | [facility] | | | | | Undetected - [...] Range: 40-10,000,000 HIV-1 copies/mL These results | [facility] | | are most likely suggestive of [...] + + + | [facility] | [address] | [place] [address] | | | DIAGNOSTIC | [address] | | | | LABORATORIES | | | | + + + + + documented in this encounter Visit Diagnoses + + | Diagnosis | + + | Human immunodeficiency virus (HCC) - Primary Asymptomatic human immunodeficiency | | virus (HIV) infection status | + + documented in this encounter
--- OUTSIDE RECORDS SUMMARY | ~2019-11-25 | XMS | Encounter Summary ---
Demographics + + + | Address | [address] | | | [place] [address] | + + + | Home Phone | | + + + | Preferred Language | Unknown | + + + | Marital Status | | + + + | Presybeterian Affiliation | 1013 | + + + | Race | Unknown | + + + | Ethnic Group | Unknown | + + + Author + + + | Author | [facility] | | | and [place] | + + + | Organization | [facility] | | [...] [place] | | | | | [address] | | + + + + + Care Team Providers + +------+ + | Care Records Supervisor Name | Role | Phone | + +------+ + PCP | Unavailable | + +------+ + Encounter Details +--------+ + + + + | Date | Type | Department | Care Team | Description | +--------+ + + + + | 01/30/ | Hospital | [facility] | Morteza Chavez | OTHER CONVULSIONS | | 2010 | Encounter | CONVERSION DEP [address] | MD [address] | ([facility]) | | | | [place] | [place], | | | | | [place], [place] | [place] [address] | | | | | [address] | [phone] | | | | | [phone] | | | +--------+ + + + [...] [place] | | | | | | [address] | | | | | | | | +--------+---------+ + + + documented as of this encounter Procedures + +--------+ + + + | Procedure Name | Priori | Date/Time | Associated Diagnosis | Comments | | | ty | | | | + +--------+ + + + | CULTURE, URINE | STAT | 01/30/2011 | | Results for this | | | | 4:04 PM | | procedure are in the | | | | PDT | | results section. | + +--------+ + + + | CULTURE, BLOOD, 2ND | STAT | 01/30/2011 | | Results for this | | SPECIMEN (NON-ORD) | | 3:30 PM | | procedure are in the | | | | PDT | | results section. | + +--------+ + + + | XR CHEST 2 VIEWS | Routin | 01/30/2011 | | Results for this | | | e | 3:21 PM | | procedure are in the | | | | PDT | | results section. | + +--------+ + + + | CT HEAD WO CONTRAST | Routin | 01/30/2011 | | Results for this | | | e | 3:16 PM | | procedure are in the | | | | PDT | | results section. | + +--------+ + + + | CULTURE, BLOOD | STAT | 01/30/2011 | | Results for this | | | | 2:50 PM | | procedure are in the | | | | PDT | | results section. | + +--------+ + + + documented in this encounter Results Culture, Urine (01/30/2011 4:04 PM PDT) + + | Specimen | + + | | + + + + + | Narrative | Performed At | + + + | Specimen Description CLEAN CATCH URINE CULTURE | EXTERNAL LAB | | NO GROWTH 2 DAYS | | | Testing performed at [facility], | | | [address] [place] [address] REPORT STATUS | | | 02/01/2011 FINAL | | + + + + +---------+ + + | Performing | Address | City/State/Zipcode | Phone Number | | Organization | | | | + +---------+ + + | EXTERNAL LAB | | | | + +---------+ + + Culture, Blood, 2nd Specimen (01/30/2011 3:30 PM PDT) + + | Specimen | + + | | + + + + + | Narrative | Performed At | + + + | Specimen Description BLOOD CULTURE | EXTERNAL LAB | | NO GROWTH IN 5 DAYS. | | | Testing performed at [facility] | | | [facility];[place] [address] REPORT STATUS | | | 02/05/2011 FINAL | | + + + + +---------+ + + | Performing | Address | City/State/Zipcode | Phone Number | | Organization | | | | + +---------+ + + | EXTERNAL LAB | | | | + +---------+ + + XR Chest 2 Vws (01/30/2011 3:21 PM PDT) + + | Specimen | + + | | + + + + + | Narrative | Performed At | + + + | [facility] [address] Ph: | | | Patient Name: MICHAEL CHAVEZ Date of : | | | 1965 Medical Record: [id number] Account: [id number] | | | Exam Date/Time: 01/30/2011 14:55 Ordering | | | Physician: MORTEZA CHAVEZ Order Detail: [id number] Exam Description: | | | XR CHEST 2 VIEW | | | | | | History: Shortness of breath. Comparison: 07/27/10. | | | Findings: AP, lateral upright films of the chest demonstrate minimal | | | strandy change on the lateral film overlying the lower lung zones, | | | probably due to subtle atelectasis. There are no infiltrates or | | | effusions. Heart size is normal. Levoconvex scoliosis of the upper | | | thoracic spine again noted. Impression: 1. Minimal bilateral | | | lower lung zone atelectasis. | | + + + + + | Procedure Note | + + | El Reyes Conversion - 01/07/2019 12:34 PM PDT | | [facility] | | [facility] [address] | | | | | | Patient Name: MICHAEL CHAVEZ | | Date of : 1965 | | Medical Record: [id number] | | Account: [id number] | | | | | | Exam Date/Time: 01/30/2011 14:55 | | Ordering Physician: MORTEZA CHAVEZ | | Order Detail: [id number] | | Exam Description: XR CHEST 2 VIEW | | | | History: | | Shortness of breath. | | | | Comparison: | | 07/27/10. | | | | Findings: | | AP, lateral upright films of the chest demonstrate minimal strandy change | | on the lateral film overlying the lower lung zones, probably due to subtle | | atelectasis. There are no infiltrates or effusions. Heart size is normal. | | Levoconvex scoliosis of the upper thoracic spine again noted. | | | | Impression: | | 1. Minimal bilateral lower lung zone atelectasis. | | | | | + + CT Head wo Contrast (01/30/2011 3:16 PM PDT) + + | Specimen | + + | | + + + + + | Narrative | Performed At | + + + | [facility] [address] Ph: | | | Patient Name: MICHAEL CHAVEZ Date of : | | | 1965 Medical Record: [id number] Account: [id number] | | | Exam Date/Time: 01/30/2011 14:55 Ordering | | | Physician: MORTEZA CHAVEZ Order Detail: [id number] Exam Description: | | | CT HEAD UN | | | | | | MICHAEL Nigel CHAVEZ CT HEAD UN 01/30/2011 2:55 PM History: 45 years. | | | Male. Recurrent headaches. History of HIV and hepatitis. | | | Technique: 5-mm thick slices at 5 mm intervals were performed | | | throughout the brain in the axial plane. No intravenous iodine | | | contrast was given. Findings: Cerebral riojas and white matter show | | | normal attenuation and demarcation. No focal attenuation defects or | | | lacunar infarctions visualized. No ischemic gliosis or cortical | | | encephalomalacia visualized. No cerebral edema, mass, intracranial | | | hemorrhage, or extra-axial fluid collection can be seen. The volume | | | and contour of the ventricular system is normal. The calvarium is | | | intact. The sinuses are clear. Previous mucosal swelling of the | | | ethmoidal air cells noted on 07/22/10 has cleared. The nasopharyngeal | | | airway is open. Conclusions: 1. Negative head CT. 2. Clear | | | paranasal sinuses. | | + + + + + | Procedure Note | + + | El Reyes Conversion - 01/07/2019 12:34 PM PDT | | [facility] | | [facility] [address] | | | | | | Patient Name: MICHAEL CHAVEZ | | Date of : 1965 | | Medical Record: [id number] | | Account: [id number] | | | | | | Exam Date/Time: 01/30/2011 14:55 | | Ordering Physician: MORTEZA CHAVEZ | | Order Detail: [id number] | | Exam Description: CT HEAD UN | | | | MICHAEL CHAVEZ | | CT HEAD UN | | 01/30/2011 2:55 PM | | | | History: 45 years. Male. Recurrent headaches. History of HIV and | | hepatitis. | | | | Technique: 5-mm thick slices at 5 mm intervals were performed throughout | | the brain in the axial plane. No intravenous iodine contrast was given. | | | | Findings: Cerebral riojas and white matter show normal attenuation and | | demarcation. No focal attenuation defects or lacunar infarctions | | visualized. No ischemic gliosis or cortical encephalomalacia visualized. | | No cerebral edema, mass, intracranial hemorrhage, or extra-axial fluid | | collection can be seen. The volume and contour of the ventricular system is | | normal. The calvarium is intact. | | | | The sinuses are clear. Previous mucosal swelling of the ethmoidal air cells | | noted on 07/22/10 has cleared. The nasopharyngeal airway is open. | | | | Conclusions: | | 1. Negative head CT. | | 2. Clear paranasal sinuses. | | | | | + + Culture, Blood (01/30/2011 2:50 PM PDT) + + | Specimen | + + | | + + + + + | Narrative | Performed At | + + + | Specimen Description BLOOD CULTURE | EXTERNAL LAB | | NO GROWTH IN 5 DAYS. | | | Testing performed at [facility];[address] | | | [facility];[place] [address] REPORT STATUS | | | 02/05/2011 FINAL | | + + + + +---------+ + + | Performing | Address | City/State/Zipcode | Phone Number | | Organization | | | | + +---------+ + + | EXTERNAL LAB | | | | + +---------+ + + documented in this encounter Visit Diagnoses + + | Diagnosis | + + | Other convulsions | + + documented in this encounter"
--- OUTSIDE RECORDS SUMMARY | ~2019-11-25 | XMS | Encounter Summary ---
Demographics + + + | Address | [address] | | | [place] [address] | + + + | Home Phone [...] [place] | | | | | [address] | | + + + + + Care Team Providers + +------+ + | Care Deployment Technician Name | Role | Phone | + +------+ + | Jax Cabrera MD | PCP | | + +------+ + Reason for Visit + +--------+ + | Reason | Onset | Comments | | | Date | | + +--------+ + | Appointment | 06/01/ | PATIENT NEEDS FOLLOW UP WITH [facility]RI[facility] | | | 2017 | | + +--------+ + Encounter Details +--------+ + + + + | Date | Type | Department | Care Team | Description | +--------+ + + + + | 06/01/ | Telephone | [facility] | Owen Medina | Appointment (PATIENT | | 2018 | | CARDIOLOGY [address] | MD Andrea [address] | NEEDS FOLLOW UP | | | | [place], | [address] [place] | WITH [facility]RIE) | | | | [place] [address] | [place] [address] | | | | | [phone] | [phone] | | | | | | | [...] this encounter Miscellaneous Notes Telephone Encounter - [place], Natalia Martinez - 06/01/2017 1:53 PM PSTLast office visit: 6 Provider seen: Dr. Medina due back: March Follow up type due: 1 year THR Needed: No Additional testing/labs due prior: Yes: Echo Outcome of call: invalid number No valid numbers in patients chart. documented in this enco unter Plan of Treatment +--------+---------+ + + + | Date | Type | Specialty | Care Team | Description | +--------+---------+ + + + | 12/05/ | Office | Pain Medicine | Vitaliy Mendoza, | | | 2019 | Visit | | DO [address] | | | | | | [place] | | | | | | [id number] | | | | | | | | +--------+---------+ + + + documented as of this encounter Visit Diagnoses Not on filedocumented in this encounter"
--- OUTSIDE RECORDS SUMMARY | ~2019-11-25 | XMS | Encounter Summary ---
Demographics + + + | Address | [address] | | | [place] [address] | + + + | Home Phone [...] + + | Author | [facility] | + + + | Organization | [facility] | + + + | Address | Unknown | + + + | Phone | Unavailable | + + + Support + + + + + | Name | Relationship | Address | Phone | + + + + + | Gabriel Greenberg | ECON | [address] | | | | | [place] | | | | | [address] | | + + + + + Care Team Providers + +------+ + | Care Pharmacology Associate Name | Role | Phone | [...] | +--------+ + + + + | 11/17/ | Telephone | [facility] Primary Care | Frde, | Lab Results | | 2017 | | at [facility] | MD Caio | | | | | [address] | [address] | | | | | Loop Physician's | [address] [place] [facility], | | | | | Pavilion, 3rd floor | [place] [address] | | | | | [place], [place] | [phone] | | | | | [address] | | | | | | [phone] | | | +--------+ + + + [...]
--- OUTSIDE RECORDS SUMMARY | ~2019-11-25 | XMS | Encounter Summary ---
Demographics + + + | Address | [address] | | | [place] [address] | + + + | Home Phone | | + + + | Preferred Language | Unknown | + + + | Marital Status | Unmarried Domestic Partner | + + + | Congregation Affiliation | NON | + + + | Race | White | + + + | Ethnic Group | Not or | + + + Author + + + | Author | [facility] [employer] [facility] | + + + | Organization [...] [place] | | | | | [address] | | + + + + + Care Team Providers + +------+ + | Care Assistant Professor Of German Name | Role | Phone | + [...] Description | +--------+--------+ + + + | 03/29/ | Refill | [facility] Primary Care | Fred, | Refill Request | | 2017 | | at [facility] | MD Caio | | | | | [address] | [address] | | | | | Loop Physician's | [address] [facility], | | | | | Pavilion, 3rd floor | [place] [address] | | | | | [place], [place] | [phone] | | | | | [address] | | | | | | [phone] | | | +--------+--------+ + + + [...]
--- OUTSIDE RECORDS SUMMARY | ~2019-11-25 | XMS | Encounter Summary ---
Demographics + + + | Address | [address] | | | [place] [address] | + + + | Home Phone | | + + + | Preferred Language | Unknown | + + + | Marital Status | | + + + | Uatsdin Affiliation | 1013 | + + + | Race | Unknown | + + + | Ethnic Group | Unknown | + + + Author + + + | Author | [facility] | | | and [place] | + + + | Organization | [facility] | | | [...] [place] | | | | | [address] | | + + + + + Care Team Providers + +------+ + | Care Category Director Name | Role | Phone | + +------+ + PCP | Unavailable | + +------+ + Encounter Details +--------+ + + + + | Date | Type | Department | Care Team | Description | +--------+ + + + + | 12/05/ | Hospital | [facility] | Conversion | Unspecified dental | | 2009 | Encounter | [facility] | Transaction, | caries | | | | CLINIC [address] | Provider Unknown | | | | | [place], [place] | | | | | | [address] | (Fax) | | | | | [phone] | | | +--------+ + + + [...] [place] | | | | | | [address] | | | | | | | | +--------+---------+ + + + documented as of this encounter Visit Diagnoses + + | Diagnosis | + + | Unspecified dental caries | + + documented in this encounter"
--- OUTSIDE RECORDS SUMMARY | ~2019-11-25 | XMS | Encounter Summary ---
Demographics + + + | Address | [address] | | | [place] [address] | + + + | Home Phone | | + + + | Preferred Language | Unknown | + + + | Marital Status | | + + + | Sikh Affiliation | 1013 | + + + [...] [place] | | | | | [address] | | + + + + + Care Team Providers + +------+ + | Care Records Management Manager Name | Role | Phone | + +------+ + PCP | Unavailable | + +------+ + Encounter Details +--------+ + + + + | Date | Type | Department | Care Team | Description | +--------+ + + + + | 02/13/ | Hospital | C GENERIC OP | Alexis Gonzales MD | Calculus of kidney | | 2009 | Encounter | CONVERSION DEP [address] | [address] | | | | | [place] | [place], [place] | | | | | [place], [place] | [address] | | | | | [address] | | | | | | [phone] | | | +--------+ + + + [...] [place] | | | | | | [address] | | | | | | | | +--------+---------+ + + + documented as of this encounter Procedures + +--------+ + + + | Procedure Name | Priori | Date/Time | Associated Diagnosis | Comments | | | ty | | | | + +--------+ + + + | XR ABDOMEN AP | Routin | 02/13/2010 | | Results for this | | | e | 7:49 AM | | procedure are in the | | | | PDT | | results section. | + +--------+ + + + documented in this encounter Results XR Abdomen AP (02/13/2010 7:49 AM PDT) + + | Specimen | + + | | + + + + + | Narrative | Performed At | + + + | [facility] [address] Ph: | | | Patient Name: CHAN MICHAEL Nigel Date of : | | | 1965 Medical Record: [id number] Account: [id number] | | | Exam Date/Time: 02/13/2010 07:40 Ordering | | | Physician: ALEXIS Zhang Detail: [id number] Exam Description: XR | | | ABDOMEN 1 VIEW | | | | | | MICHAEL CHAVEZ XR ABDOMEN 1 VIEW 02/13/2010 7:40 AM HISTORY: 44 | | | years. Male. Kidney stone. TECHNIQUE: A single supine view of | | | the abdomen is obtained. COMPARISON: Plain film 10/09/2007. CT | | | urinary tract 12/10/2009 FINDINGS: Bowel gas pattern is normal. | | | No evidence of bowel obstruction or free air. The outlines of the | | | liver, spleen, kidneys and psoas muscles are normal. Surgical clips | | | are noted in the right upper quadrant. No radiopaque density is seen | | | to suggest the resonance of a retained stone in the right ureter. | | | Calcifications are seen in the central low pelvis consistent with | | | prostate calcifications seen on the prior CT exam. No significant | | | skeletal abnormality identified in abdomen or pelvis. IMPRESSION: | | | 1. No evidence of a retained urinary tract calculus in the right | | | ureter or bladder. 2. Prostate calcification noted. | | | | | + + + + + | Procedure Note | + + | El Reyes - 01/08/2019 4:04 PM PDT | | [facility] | | [facility] [address] | | | | | | Patient Name: MICHAEL CHAVEZ | | Date of : 1965 | | Medical Record: [id number] | | Account: [id number] | | | | | | Exam Date/Time: 02/13/2010 07:40 | | Ordering Physician: ALEXIS GONZALES | | Order Detail: [id number] | | Exam Description: XR ABDOMEN 1 VIEW | | | | MICHAEL CHAVEZ | | XR ABDOMEN 1 VIEW | | 02/13/2010 7:40 AM | | | | HISTORY: | | 44 years. Male. Kidney stone. | | | | TECHNIQUE: | | A single supine view of the abdomen is obtained. | | | | COMPARISON: | | Plain film 10/09/2007. CT urinary tract 12/10/2009 | | | | FINDINGS: | | Bowel gas pattern is normal. No evidence of bowel obstruction or free air. | | The outlines of the liver, spleen, kidneys and psoas muscles are normal. | | Surgical clips are noted in the right upper quadrant. | | No radiopaque density is seen to suggest the resonance of a retained stone | | in the right ureter. Calcifications are seen in the central low pelvis | | consistent with prostate calcifications seen on the prior CT exam. | | No significant skeletal abnormality identified in abdomen or pelvis. | | | | IMPRESSION: | | 1. No evidence of a retained urinary tract calculus in the right ureter | | or bladder. | | 2. Prostate calcification noted. | | | | | + + documented in this encounter Visit Diagnoses + + | Diagnosis | + + | Calculus of kidney | + + documented in this encounter"
--- OUTSIDE RECORDS SUMMARY | ~2019-11-25 | XMS | Encounter Summary ---
Demographics + + + | Address | [address] | | | [place] [address] | + + + | Home Phone [...] + + | Author | [email or web address] | + + + | Organization | [facility] | + + + | Address | Unknown | + + + | Phone | Unavailable | + + + Support + + + + + | Name | Relationship | Address | Phone | + + + + + | Gabriel Greenberg | ECON | [address] | | | | | [place] | | | | | [address] | | + + + + + Care Team Providers + +------+ + | Care Dental Chairside Assistant Name | Role | Phone | + [...] + + | 04/30/ | Telephone | [facility] Primary Care | Fred | Medication actions | | 2016 | | at [facility] | MD Caio | | | | | [address] | [address] | | | | | Loop Physician's | [address] [place], | | | | | Pavilion, 3rd floor | [place] [address] | | | | | [place], [place] | [phone] | | | | | [address] | | | | | | [phone] | | | +--------+ + + + [...]
--- OUTSIDE RECORDS SUMMARY | ~2019-11-25 | XMS | Encounter Summary ---
Demographics + + + | Address | [address] | | | [place] [address] | + + + | Home Phone | | + + + | Preferred Language | Unknown | + + + | Marital Status | | + + + | Zoroastrian Affiliation | 1013 | + + + | Race | Unknown | + + + | Ethnic Group | Unknown | + + + Author + + + | Author | [facility] | | | and [place] | + + + | Organization | [facility] | | | [...] [place] | | | | | [address] | | + + + + + Care Team Providers + +------+ + | Care Lead Javascript Engineer Name | Role | Phone | [...] | | | | CENTER [address] | [place] | | | | | [place] | [address] | | | | | [address] | | | | | | [phone] | | | +--------+ + + + [...] + | Blood Pressure | 158/101 | 12/10/2017 6:15 PM | | | | | PDT | | + + + + + | Pulse | 80 | 12/10/2017 6:15 PM | | | | | PDT | | + + + + + | Temperature | 37 C (98.6 F) | 12/10/2017 5:33 PM | | | | | PDT | | + + + + + | Respiratory Rate | 14 | 12/10/2017 6:15 PM | | | | | PDT | | + + + + + | Oxygen Saturation | 97% | 12/10/2017 6:15 PM | | | | | PDT | | + + + + + | Inhaled Oxygen | - | - | | | Concentration | | | | + + + + + | Weight | 69.9 kg (154 lb) | 12/10/2017 5:33 PM | | | | | PDT | | + + + + + | Height | - | - | | + + + + + | Body Mass Index | 24.86 | 08/24/2016 2:44 PM | | | | | PDT | | + + + + + documented in this encounter Discharge Instructions Instructions Benji Estrada MD - 12/10/2017No fracture was identified Stay off the ankle and use the crutches as needed Once you start walking again, use the brace to support the ankle AttachmentsThe following attachments cannot be sent through Care Everywhere.Tamara jovel)documented in this encounter Medications at Time of [...] documented as of this encounter ED Notes Ryan Martin RN - 12/10/2017 5:32 PM 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 States he heard 2 popping sounds. enji Estrada MD - 12/10/2017 5:31 PM PDT [facility] Ivan Giles Emergency Department Encounter Note [address] [place] [address] PCP:Jax Cabrera MD CHIEF COMPLAINT: Chief Complaint Patient presents with Ankle Injury HPI Ivan Giles is a 52 y.o. male who presents to the Emergency Department with left ankl e pain. This is a 52-year-old male who was at home and inverted the left ankle. He heard a pop and then felt immediate pain and swelling along the medial and more prominently than la teral malleoli areas. Now he has pain with weightbearing. No associated fevers. No numbne ss or weakness but there is some tingling in the fourth and fifth and third toes PAST MEDICAL & SURGICAL HISTORY Past Medical History: Diagnosis Date Congenital heart disease 04/14/2016 HIV (human immunodeficiency virus infection) ([facility]) 04/14/2016 Seizure disorder ([facility]) 04/15/2016 Past Surgical History: Procedure Laterality Date CHOLECYSTECTOMY ELBOW SURGERY Right x2 HIATAL HERNIA REPAIR TONSILLECTOMY CURRENT MEDICATIONS Previous Medications ALBUTEROL-IPRATROPIUM (COMBIVENT) 103-18 MCG/PUFF INHALER Inhale 2 puffs into the lungs every 6 hours as needed for Wheezing. AMLODIPINE (NORVASC) 5 MG TABLET Take 1 tablet by mouth Daily. DEXLANSOPRAZOLE (DEXILANT) 60 MG CPDR Take 60 mg by mouth Daily. DIVALPROEX (DEPAKOTE) 250 MG EC TABLET Take 250 mg by mouth Daily. DULOXETINE (CYMBALTA) 30 MG CAPSULE Take 30 mg by mouth Daily. EMTRICITABINE-TENOFOVIR (TRUVADA PO) TABS: one tablet daily LORATADINE (GNP LORATADINE) 10 MG TABLET Take 10 mg by mouth Daily. NITROGLYCERIN (NITROSTAT) 0.[address] 0.4 mg under the tongue every 5 minute s as needed for Chest pain. ONDANSETRON (ZOFRAN) 4 MG TABLET Take 4 mg by mouth every 8 hours as needed. OXYCODONE (OXYCONTIN) 10 MG ER ABUSE-DETERRENT TABLET Take 10 mg by mouth as needed for Pain. PREGABALIN (LYRICA) 150 MG CAPSULE Take 150 mg by mouth Daily. SALMETEROL (SEREVENT DISKUS) 50 MCG/PUFF DISKUS INHALER Inhale 1 puff into the lungs as needed. SUMATRIPTAN (IMITREX) 100 MG TABLET Take 100 mg by mouth as needed. TELMISARTAN (MICARDIS) 80 MG TABLET Take 80 mg by mouth Daily. TRAZODONE (DESYREL) 100 MG TABLET Take 100 mg by mouth nightly. ALLERGIES Allergies Allergen Reactions Phenytoin Diarrhea FAMILY AND SOCIAL HISTORY Family History Problem Relation Age of Onset Alcohol abuse Mother Cancer Father Social History Social History Marital status: Spouse name: Enrique Fung" Number of children: 0 Years of education: N/A Social History Main Topics Smoking status: Never Smoker Smokeless tobacco: Never Used Alcohol use No Drug use: No Comment: Quit 01/24/93 Sexual activity: Not Asked Other Topics Concern None Social History Narrative Exercise: walking; biking Caffeine: 4 cups coffee daily Living situation: with spouse REVIEW OF SYSTEMS Review of Systems Constitutional: Negative for chills and fever. Musculoskeletal: Positive for joint pain. Neurological: Positive for tingling. As in history of present illness. PHYSICAL EXAM VITAL SIGNS: (first vital signs):Temp: 37 C (98.6 F) Pulse: 94 Resp: 16 SpO2: 99 % BP: (!) 161/93 Body mass index is 24.86 kg/m. Constitutional: male patient, pleasant, alert and appropriate, conversant with nurse and s taff. HEENT: Atraumatic, patient follows me around the room with their eyes, PERRL, Oropharynx s hows no redness, moist mucus membranes. Extremities: Patient has focal tenderness to palpation of the lateral malleolus with somewh at limited range of motion. No numbness or weakness distal to the injured area Skin: Warm, Dry, No obvious rashes. Capillary refill is brisk <3 seconds and shows good p erfusion on areas of visible skin. Neurologic: Alert & oriented. Cranial nerves II-XII intact. No focal deficits. Gait is l imping. Speech is normal. Psychiatric: Normal mood, affect and judgement. No evidence of suicidal or homicidal idea tion at this time. IMAGING STUDIES Recent imaging: No results found for this or any previous visit (from the past 360 hour(s)). ED COURSE & MEDICAL DECISION MAKING Pertinent Labs & Imaging studies were reviewed along with EMS notes and shelter record s if applicable. Medication and Allergy lists reviewed in [facility]. Nurses note and old record s were reviewed if available within [facility] ER course 17:31 - Patient care initiated. After introducing myself to the patient, I performed a car eful history and physical examination. I suspect that this patient sprained his ankle. However we will check an x-ray and reevalu ate 18:00. No fracture on x-ray. We will treat as an ankle sprain Last Set of Vital Signs: Temp: 37 C (98.6 F) Pulse: 94 Resp: 16 SpO2: 99 % BP: (!) 161/ 93 FINAL IMPRESSION 1. Acute left ankle pain Disposition: Discharge home Condition: Stable Follow-up Information Jax Cabrera MD. Specialty: Family Medicine Contact information: [address] [place] [address] New Prescriptions HYDROCODONE-ACETAMINOPHEN (NORCO) 5-325 MG PER TABLET Take 1 tablet by mouth every 6 ho urs as needed. ONDANSETRON (ZOFRAN ODT) 8 MG DISINTEGRATING TABLET Take 1 tablet by mouth every 8 hour s as needed for Nausea. Discontinued Medications No medications on file Discharge Instructions No fracture was identified Stay off the ankle and use the crutches as needed Once you start walking again, use the brace to support the ankle Discharge References/Attachments [employer] ([place]) Administrations This Visit HYDROcodone-acetaminophen (NORCO) 5-325 mg per tablet 1 tablet Admin Date 12/10/2017 Action Given Dose 1 tablet Route Oral Administered By Ayan Mckeon RN ondansetron (ZOFRAN ODT) disintegrating tablet 4 mg Admin Date 12/10/2017 Action Given Dose 4 mg Route Oral Administered By Ayan Mckeon RN Portions of this chart may have been created with [employer] voice recognition software. Occasi onal wrong-word or sound-alike substitutions may have occurred due to the inherent norwood itations of voice recognition software. Please read the chart carefully and recognize, using context, where these substitutions have occurred. Benji Estrada MD 12/10/17 1801 documented in this e ncounter Plan of [...] PAZ | | | | | | [phone] | | | | | | | [...] Results for this | | | | 5:46 PM | | procedure are in the | | | | PDT | | results section. | + +--------+ + + + documented in this encounter Results XR Ankle Left 3 + Vw (12/10/2017 5:46 PM PDT) + + | Specimen | [...] Note | + + | [facility] Results In - 12/10/2017 6:37 PM PDT XR ANKLE LEFT 3 + VW [...] ankle pain - Primary | + + documented in this encounter Administered Medications + +--------+ + +------+------+ | Medication Order | MAR | Action | Dose | Rate | Site | | | Action | Date | | | | + +--------+ + +------+------+ | HYDROcodone-acetaminophen | Given | 12/11/19 | 1 tablet | | | | (NORCO) 5-325 mg per tablet 1 | | 18 5:45 | | | | | tablet 1 tablet, Oral, ONCE, Fri | | PM PDT | | | | | 12/10/17 at 1745, For 1 dose | | | | | | + +--------+ + +------+------+ +---+---+ | | | +---+---+ + +-------+ +------+---+---+ | ondansetron (ZOFRAN ODT) | Given | 12/11/19 | 4 mg | | | | disintegrating tablet 4 mg 4 mg, | | 18 5:44 | | | | | Oral, ONCE, 12/10/17 at 1745, | | PM PDT | | | | | For 1 dose | | | | | | + +-------+ +------+---+---+ +---+---+ | | | +---+---+ documented in this encounter
--- OUTSIDE RECORDS SUMMARY | ~2019-11-25 | XMS | Encounter Summary ---
Demographics + + + | Address | [address] | | | [place] [address] | + + + | Home Phone | | + + + | Preferred Language | Unknown | + + + | Marital Status | Unmarried Domestic Partner | + + + | Judaism Affiliation | NON | + + + | Race | White | + + + | Ethnic Group | Not or | + + + Author + + + | Author | [facility] | + + + | Organization | [facility] | + + + | Address | Unknown | + + + | Phone | Unavailable | + + + Support + + + + + | Name | Relationship | Address | Phone | + + + + + | Gabriel [place]berg | ECON | [address] | | | | | [place] | | | | | [address] | | + + + + + Care Team Providers + +------+ + | Care Hire Car Driver Name | Role | Phone | + +------+ + | Jax Cabrera MD | PCP | | + +------+ + Encounter Details +--------+------+ + + + | Date | Type | Department | Care Team | Description | +--------+------+ + + + | 02/24/ | Lab | Laboratory at [facility] | | HIV (human | | 2017 | | [address] | | immunodeficiency | | | | [address] [facility] | | virus infection) | | | | Pavilion, 3rd floor | | ([facility]) | | | | [place], [place] | | | | | | [address] | | | | | | [phone] | | | +--------+------+ + + + [...] HEPATITIS B BY PCR | Routin | 02/24/2017 | HIV (human | Results for this | | | e | 12:23 PM | immunodeficiency | procedure are in the | | | | PDT | virus infection) | results section. | | | | | (HCC) | | + +--------+ + + + | CBC AND AUTO DIFF | Routin | 02/24/2017 | HIV (human | Results for this | | | e | 12:23 PM | immunodeficiency | procedure are in the | | | | PDT | virus infection) | results section. | | | | | (HCC) | | + +--------+ + + + | LAB OTHER | Routin | 02/24/2017 | HIV (human | Results for this | | | e | 12:23 PM | immunodeficiency | procedure are in the | | | | PDT | virus infection) | results section. | | | | | (HCC) | | + +--------+ + + + | HIV QUANTITATIVE | Routin | 02/24/2017 | HIV (human | Results for this | | PCR, PLASMA | e | 12:23 PM | immunodeficiency | procedure are in the | | | | PDT | virus infection) | results section. | | | | | (HCC) | | + +--------+ + + + | CD4 (T CELL), BLOOD | Routin | 02/24/2017 | HIV (human | Results for this | | | e | 12:23 PM | immunodeficiency | procedure are in the | | | | PDT | virus infection) | results section. | | | | | (HCC) | | + +--------+ + + + | CBC, WITH | Routin | 02/24/2017 | HIV (human | Results for this | | DIFFERENTIAL | e | 12:23 PM | immunodeficiency | procedure are in the | | | | PDT | virus infection) | results section. | | | | | (HCC) | | + +--------+ + + + | COMPLETE METABOLIC | Routin | 02/24/2017 | HIV (human | Results for this | | SET | e | 12:23 PM | immunodeficiency | procedure are in the | | (NA,K,CL,CO2,BUN,CRE | | PDT | virus infection) | results section. | | AT,GLUC,CA,AST,ALT,B | | | (HCC) | | | TORIBIO TOTAL,ALK | | | | | | PHOS,ALB,PROT TOTAL) | | | | | + +--------+ + + + documented in this encounter Results CBC AND AUTO DIFF (02/24/2017 12:23 PM PDT) + + + + + + | Component | Value | Ref Range | Performed | Pathologist | | | | | At | Signature | + + + + + + | WHITE CELL | 5.56 | 3.50 - 10.80 | [facility] | | | COUNT | | K/cu mm | LABORATORY | | | | | | SERVICES, | | | | | | CORE | | + + + + + + | RED CELL | 5.33 | 4.50 - 6.00 | [facility] | | | COUNT | | M/cu mm | LABORATORY | | | | | | SERVICES, | | | | | | CORE | | + + + + + + | HEMOGLOBIN | 15.5 | 13.5 - 17.5 | [facility] | | | | | g/dL | LABORATORY | | | | | | SERVICES, | | | | | | CORE | | + + + + + + | HEMATOCRIT | 44.7 | 41.0 - 53.0 % | [facility] | | | | | | LABORATORY | | | | | | SERVICES, | | | | | | CORE | | + + + + + + | MCV | 83.9 | 80.0 - 96.0 fL | [facility] | | | | | | LABORATORY | | | | | | SERVICES, | | | | | | CORE | | + + + + + + | MCHC | 34.7 | 33.0 - 35.5 | [facility] | | | | | g/dL | LABORATORY | | | | | | SERVICES, | | | | | | CORE | | + + + + + + | RDW SD | 38.9 | 35.1 - 46.3 fL | [facility] | | | | | | LABORATORY | | | | | | SERVICES, | | | | | | CORE | | + + + + + + | PLATELET | 219 | 150 - 400 K/cu | [facility] | | | COUNT | | mm | LABORATORY | | | | | | SERVICES, | | | | | | CORE | | + + + + + + | MPV | 10.2 | 9.7 - 12.3 fL | [facility] [...] + + + + | NEUTROPHIL | 59.8 | 50.0 - 70.0 % | [facility] | | | % | | | LABORATORY | | | | | | SERVICES, | | | | | | CORE | | + + + + + + | LYMPHOCYTE | 29.3 | 18.0 - 42.0 % | [facility] [...] + + + | EOS % | 1.3 | 1.0 - 3.0 % | [facility] | | | | | | LABORATORY | | | | | | SERVICES, | | | | | | CORE | | + + + + + + | BASO % | 0.4 | 0.0 - 2.0 % | [facility] | | | | | | LABORATORY | | | | | | SERVICES, | | | | | | CORE | | + + + + + + | IG% | 0.4Comment: Immature | 0.0 - 0.6 % | [...] + + + + | NEUTROPHIL | 3.33 | 1.80 - 7.70 | [facility] | | | # | | K/cu mm | LABORATORY | | | | | | SERVICES, | | | | | | CORE | | + + + + + + | LYMPHOCYTE | 1.63 | 1.00 - 4.80 | [facility] | | | # | | K/cu mm | LABORATORY | | | | | | SERVICES, | | | | | | CORE | | + + + + + + | MONOCYTE # | 0.49 | 0.10 - 0.90 | [facility] | | | | | K/cu mm | LABORATORY | | | | | | SERVICES, | | | | | | CORE | | + + + + + + | EOS # | 0.07 | 0.00 - 0.50 | [facility] | | | | | K/cu mm | LABORATORY | | | | | | SERVICES, | | | | | | CORE | | + + + + + + | BASO # | 0.02 | 0.00 - 0.10 | [facility] | | | | | K/cu mm | LABORATORY | | | | | | SERVICES, | | | | | | CORE | | + + + + + + | IG# | 0.02 | 0.00 - 0.03 | [facility] | [...] | + + + + + | [facility] | [address] | [place] [address] | | | SERVICES, CORE | [address] | | | + + + + + LAB JOELLE (02/24/2017 12:23 PM PDT) + + + [...] [facility] | | | LAB NAME | [facility] | | REFERENCE | | | | [address] | | LAB | | | | [place] [address] | | | | + + + [...] | + + + + + | [facility] | [address] | [place] [address] | | | SERVICES, CORE | [address] [...] | + + + + + | [facility] | [address] | [place] [address] | | | DIAGNOSTIC | [address] [...] + + + | [facility] | [address] | [place] [address] | | | DIAGNOSTIC | [address] [...] | | | LABORATORY | | | [facility] | | | SERVICES, | | | [...] | Adult glucose reference range change effective 11-25-. GFR is | [facility] | | estimated [...] [facility] | [address] | [place] [address] | | | SERVICES, CORE | PARK [...] LABORATORY | | performance characteristics determined by cicayda. It has | SERVICES, | | not [...] | + + + + + | [facility] | [address] | [place] [address] | | | SERVICES, SPECIAL | PARK [...]
--- OUTSIDE RECORDS SUMMARY | ~2019-11-25 | XMS | Encounter Summary ---
Demographics + + + | Address | [address] | | | [place] [address] | + + + | Home Phone | | + + + | Preferred Language | Unknown | + + + | Marital Status | Unmarried Domestic Partner | + + + | Synagogue Affiliation | NON | + + + | Race | White | + + + | Ethnic Group | Not or | + + + Author + + + | Author | [facility] | + + + | Organization | [facility] | + + + | Address | Unknown | + + + | Phone | Unavailable | + + + Support + + + + + | Name | Relationship | Address | Phone | + + + + + | Gabriel Greenberg | ECON | [address] | | | | | [place] | | | | | [address] | | + + + + + Care Team Providers + +------+ + | Care Weaver Wire Loom Name | Role | Phone | + +------+ + | No Pcp Per Patient | PCP | Unavailable | + +------+ + Reason for Visit + + + | Reason | Comments | + + + | Laboratory Test | ? | | Requested | | + + + Encounter Details +--------+ + + + + | Date | Type | Department | Care Team | Description | +--------+ + + + + | 09/08/ | Computer Applications Instructor | [facility] Primary Care | Fred, | | | 2016 | | at [facility] | MD Caio | | | | | [address] | [address] | | | | | [address] | [place] [facility], | | | | | Pavilion, 3rd floor | [place] [address] | | | | | [place], [place] | [phone] | | | | | [address] | | | | | | [phone] | | | +--------+ + + + [...]
--- OUTSIDE RECORDS SUMMARY | ~2019-11-25 | XMS | Encounter Summary ---
Demographics + + + | Address | [address] | | | [place] [address] | + + + | Home Phone | | + + + | Preferred Language | Unknown | + + + | Marital Status | Unmarried Domestic Partner | + + + | Restoration Affiliation | NON | + + + | Race | White | + + + | Ethnic Group | Not or | + + + Author + + + | Author | [facility] | + + + | Organization [...] [place] | | | | | [address] | | + + + + + Care Team Providers + +------+ + | Care Graphics Coordinator Name | Role | Phone | + +------+ + | Unknown | PCP | Unavailable | + +------+ + Encounter Details +--------+ + + + + | Date | Type | Department | Care Team | Description | +--------+ + + + + | 07/28/ | Hospital | Registration [facility] | | | | 2016 | Encounter | [address] | | | | | | [place], | | | | | | [place] [address] | | | +--------+ + + + [...]
--- OUTSIDE RECORDS SUMMARY | ~2019-11-25 | XMS | Encounter Summary ---
Demographics + + + | Address | [address] | | | [place] [address] | + + + | Home Phone | | + + + | Preferred Language | Unknown | + + + | Marital Status | | + + + | Orthodox Affiliation | 1013 | + + + | Race | Unknown | + + + | Ethnic Group | Unknown | + + + Author + + + | Author | [facility] | | | and [place] | + + + | Organization | [facility] | | | [...] [place] | | | | | [address] | | + + + + + Care Team Providers + +------+ + | Care Shorthand Teacher Name | Role | Phone | + +------+ + PCP | Unavailable | + +------+ + Encounter Details +--------+ + + + + | Date | Type | Department | Care Team | Description | +--------+ + + + + | 06/01/ | Hospital | [facility] | | Other convulsions | | 1997 - | Encounter | [facility] | | | | | | CLINICAL DECISION | | | | 06/04/ | | [address] | | | | 1997 | | [place], [place] | | | | | | [address] | | | | | | [phone] | | | +--------+ + + + [...] [place] | | | | | | [address] | | | | | | | | +--------+---------+ + + + documented as of this encounter Visit Diagnoses + + | Diagnosis | + + | Other convulsions | + + documented in this encounter"
--- OUTSIDE RECORDS SUMMARY | ~2019-11-25 | XMS | Clinical Summary ---
Demographics + + + | Address | [address] | | | [place] [address] | + + + | Home Phone | | + + + | Preferred Language | Unknown | + + + | Marital Status | | + + + | Restorationist Affiliation | 1013 | + + + | Race | Unknown | + + + | Ethnic Group | Unknown | + + + Author + + + | Author | [facility] | | | and [place] | + + + | Organization | [facility] | | | [...] [place] | | | | | [address] | | + + + + + Care Team Providers + +------+ + | Care Director Of Manufacturing Operations Name | Role | Phone | + +------+ + | Jax Cabrera MD | PCP | | + +------+ + Allergies + + + + + + | Active Allergy | Reactions | Severity | Noted | Comments | | | | | Date | | + + + + + + | Gabapentin | Hallucination, Other | Medium | 06/01/19 | Loss of memory, | | | (See Comments), | | 14 | headache Loss of | | | Unknown | | | memory, headache | | | | | | Loss of memory, | | | | | | headache Loss of | | | | | | memory, headache | | | | | | Loss of memory, | | | | | | headache Loss of | | | | | | memory, headache | + + + + + + | Morphine | Nausea And Vomiting | Low | 12/13/19 | | | | | | 19 | | + + + + + + | Phenytoin | Diarrhea, Other (See | Medium | 08/15/19 | h/a h/a h/a h/a | | | Comments), Unknown | | 16 | h/a h/a | + + + + + + | Ritonavir | Other (See Comments) | Medium | 12/13/19 | | | | | | 19 | | + + + + + + Medications + + + +---------+------+------+-------+ | Medication | Sig | Dispensed | Refills | Star | End | Statu | | | | | | t | Date | s | | | | | | Date | | | + + + +---------+------+------+-------+ | pregabalin | Take 150 mg by mouth | | 0 | 01/0 | | Activ | | (LYRICA) 150 MG | Daily. | | | 5/20 | | e | | capsule | | | | 12 | | | + + + +---------+------+------+-------+ | divalproex | Take 250 mg by mouth | | 0 | 09/1 | | Activ | | (DEPAKOTE) 250 mg EC | Daily. | | | 8/20 | | e | | tablet | | | | 12 | | | + + + +---------+------+------+-------+ | SUMAtriptan | Take 100 mg by mouth | | 0 | 09/1 | | Activ | | (IMITREX) 100 mg | as needed. | | | 8/20 | | e | | tablet | | | | 12 | | | + + + +---------+------+------+-------+ | loratadine (GNP | Take 10 mg by mouth | | 0 | 09/1 | | Activ | | LORATADINE) 10 mg | Daily. | | | 8/20 | | e | | tablet | | | | 12 | | | + + + +---------+------+------+-------+ | traZODone | Take 100 mg by mouth | | 0 | 09/1 | | Activ | | (DESYREL) 100 mg | nightly. | | | 8/20 | | e | | tablet | | | | 12 | | | + + + +---------+------+------+-------+ | | TABS: one tablet | | 0 | 01/15 | | Activ | | Emtricitabine-Tenofo | daily | | | 01/03 | | e | | vir (TRUVADA PO) | | | | 12 | | | + + + +---------+------+------+-------+ | DULoxetine | Take 30 mg by mouth | | 0 | 01/15 | | Activ | | (CYMBALTA) 30 mg | Daily. | | | 01/03 | | e | | capsule | | | | 12 | | | + + + +---------+------+------+-------+ +---+ + | | Additional | | | InformationPatient | | | taking differently: | | | 60 mg Oral DAILY, | | | Reported on | | | 04/14/2016 10:29 AM | +---+ + + + + +----+------+------+-------+ | Dexlansoprazole | Take 60 mg by mouth | | 0 | 05/18 | | Activ | | (DEXILANT) 60 MG | Daily. | | | 3/20 | | e | | CPDR | | | | 12 | | | + + + +----+------+------+-------+ | ondansetron | Take 4 mg by mouth | | 0 | 01/2 | | Activ | | (ZOFRAN) 4 mg tablet | every 8 hours as | | | 3/20 | | e | | | needed. | | | 12 | | | + + + +----+------+------+-------+ | telmisartan | Take 80 mg by mouth | | 0 | | | Activ | | (MICARDIS) 80 MG | Daily. | | | | | e | | tablet | | | | | | | + + + +----+------+------+-------+ | | Inhale 2 puffs into | | 0 | | | Activ | | albuterol-ipratropiu | the lungs every 6 | | | | | e | | m (COMBIVENT) 103-18 | hours as needed for | | | | | | | mcg/puff inhaler | Wheezing. | | | | | | + + + +----+------+------+-------+ | salmeterol | Inhale 1 puff into | | 0 | | | Activ | | (SEREVENT DISKUS) 50 | the lungs as needed. | | | | | e | | mcg/puff diskus | | | | | | | | inhaler | | | | | | | + + + +----+------+------+-------+ | nitroglycerin | Place 0.4 mg under | | 0 | | | Activ | | (NITROSTAT) 0.4 mg | the tongue every 5 | | | | | e | | SL tablet | minutes as needed | | | | | | | | for Chest pain. | | | | | | + + + +----+------+------+-------+ | amLODIPine | Take 1 tablet by | 30 | 11 | 12/0 | | Activ | | (NORVASC) 5 mg | mouth Daily. | tablet | | 1/20 | | e | | tablet | | | | 16 | | | + + + +----+------+------+-------+ | ondansetron | Take 1 tablet by | 12 | 0 | 07/2 | | Activ | | (ZOFRAN ODT) 8 mg | mouth every 8 hours | tablet | | 7/20 | | e | | disintegrating | as needed for | | | 18 | | | | tablet | Nausea. | | | | | | + + + +----+------+------+-------+ | albuterol 90 | Inhale 1-2 puffs by | | 0 | 02/0 | | Activ | | mcg/puff inhaler | mouth every six | | | 1/20 | | e | | | hours as needed. | | | 17 | | | | | Contact provider [...] | | | | + + + +----+------+------+-------+ | albuterol 90 | Inhale into the | | 0 | 02/0 | | Activ | | mcg/puff inhaler | lungs. | | | 1/20 | | e | | | | | | 17 | | | + + + +----+------+------+-------+ | crofelemer | Take 1 tablet by | | 0 | 07/ | | Activ | | (FULYZAQ) 125 mg EC | mouth every twelve | | | 0/20 | | e | | tablet | hours. | | | 17 | | | + + + +----+------+------+-------+ | cyclobenzaprine | Take 10 mg by mouth | | 0 | | | Activ | | (FLEXERIL) 10 mg | 3 (three) times | | | | | e | | tablet | daily as needed for | | | | | | | | Muscle spasms. | | | | | | + + + +----+------+------+-------+ | dolutegravir | Take 100 mg by mouth | | 0 | 02/0 | | Activ | | (TIVICAY) 50 mg | daily. | | | 06/05 | | e | | tablet | | | | 17 | | | + + + +----+------+------+-------+ | | Take 1 tablet by | | 0 | 02/0 | | Activ | | emtricitabine-tenofo | mouth once daily. | | | 06/05 | | e | | vir alafenamide | | | | 17 | | | | (DESCOVY) 200-25 mg | | | | | | | | per tablet | | | | | | | + + + +----+------+------+-------+ | | Inhale 1 puff into | | 0 | | | Activ | | fluticasone-vilanter | the lungs daily. | | | | | e | | ol (BREO ELLIPTA) | | | | | | | | 100-25 mcg/puff | | | | | | | | inhaler | | | | | | | + + + +----+------+------+-------+ | hydrOXYzine | Take 25 mg by mouth | | 0 | | | Activ | | hydrochloride | 3 (three) times | | | | | e | | (ATARAX) 25 mg | daily as needed for | | | | | | | tablet | Itching. | | | | | | + + + +----+------+------+-------+ | methylPREDNISolone | Take by mouth. | | 0 | | | Activ | | (MEDROL DOSEPAK) 4 | Follow package | | | | | e | | mg tablet | directions. | | | | | | + + + +----+------+------+-------+ | promethazine | Takes as needed for | | 0 | 03/2 | | Activ | | (PHENERGAN) 12.5 MG | nausea. | | | 1/20 | | e | | tablet | | | | 17 | | | + + + +----+------+------+-------+ | | Take 1 tablet by | | 0 | | | Activ | | telmisartan-hydrochl | mouth daily. | | | | | e | | orothiazide | | | | | | | | (MICARDIS HCT) | | | | | | | | 80-12.5 MG per | | | | | | | | tablet | | | | | | | + + + +----+------+------+-------+ | amLODIPine | Take 5 mg by mouth. | | 0 | 12/0 | | Activ | | (NORVASC) 5 mg | | | | 1/20 | | e | | tablet | | | | 16 | | | + + + +----+------+------+-------+ | dexlansoprazole | Take 1 capsule by | | 0 | 06/2 | | Activ | | (DEXILANT) [address] | mouth every morning | | | 6/20 | | e | | capsule | before breakfast. | | | 19 | | | + + + +----+------+------+-------+ | divalproex | Take 500 mg by mouth | | 0 | | | Activ | | (DEPAKOTE ER) 250 mg | 2 (two) times | | | | | e | | 24 hr tablet | daily. | | | | | | + + + +----+------+------+-------+ | divalproex | Rx per PCP. Per | | 0 | 12/1 | | Activ | | (DEPAKOTE) [address] | patient takes 1 | | | 620 | | e | | tablet | tablet BID for | | | 16 | | | | | seizure d/o. | | | | | | + + + +----+------+------+-------+ | | Take 1 tablet by | | 0 | | | Activ | | emtricitabine-tenofo | mouth daily. | | | | | e | | vir DF (TRUVADA) | | | | | | | | 200-300 mg per | | | | | | | | tablet | | | | | | | + + + +----+------+------+-------+ | loratadine | Take 10 mg by mouth | | 0 | | | Activ | | (CLARITIN) 10 mg | daily as needed. | | | | | e | | tablet | | | | | | | + + + +----+------+------+-------+ | pregabalin | Take 150 mg by mouth | | 0 | | | Activ | | (LYRICA) 150 MG | 2 (two) times | | | | | e | | capsule | daily. | | | | | | + + + +----+------+------+-------+ | salmeterol | Rx per PCP. Per | | 0 | 12/1 | | Activ | | (SEREVENT DISKUS) 50 | patient takes 2 | | | 6/20 | | e | | mcg/puff diskus | puffs as needed. | | | 16 | | | | inhaler | | | | | | | + + + +----+------+------+-------+ | SUMAtriptan | Take by mouth. | | 0 | | | Activ | | (IMITREX) 100 mg | | | | | | e | | tablet | | | | | | | + + + +----+------+------+-------+ | telmisartan | Take 1 tablet by | | 0 | 10/ | | Activ | | (MICARDIS) 80 MG | mouth once daily. | | | 09/03 | | e | | tablet | Indications: | | | 16 | | | | | HYPERTENSION | | | | | | + + + +----+------+------+-------+ | traZODone | Rx per PCP. Per | | 0 | 12/ | | Activ | | (DESYREL) 100 mg | patient takes 1 | | | 11/03 | | e | | tablet | tablet every evening | | | 16 | | | | | for sleep. | | | | | | + + + +----+------+------+-------+ | naloxone (NARCAN) | 1 spray by Nasal | 2 each | 1 | 06/ | | Activ | | 4 mg/nasal | route as needed for | | | 0/20 | | e | | sprayIndications: | Decreased | | | 20 | | | | retirement current | Responsiveness (May | | | | | | | use of opiate | repeat with second | | | | | | | analgesic | device into other | | | | | | | | nostril after 2 | | | | | | | | minutes). | | | | | | + + + +----+------+------+-------+ | oxyCODONE 10 MG | Take 1 tablet by | 88 | 0 | 10/17 | | Activ | | TABSIndications: | mouth every 6 hours | tablet | | 0/20 | | e | | Cervical radicular | as needed. | | | 20 | | | | pain, Degeneration | | | | | | | | of intervertebral | | | | | | | | disc of cervical | | | | | | | | region, Arthropathy | | | | | | | | of cervical facet | | | | | | | | joint, Degenerative | | | | | | | | lumbar spinal | | | | | | | | stenosis, Lumbar | | | | | | | | herniated disc, | | | | | | | | Degeneration of | | | | | | | | thoracic | | | | | | | | intervertebral disc, | | | | | | | | Facet arthritis of | | | | | | | | lumbar region | | | | | | | + + + +----+------+------+-------+ | dicyclomine | Take 1 capsule by | | 0 | 10/16 | 10/16 | Expir | | (BENTYL) 10 mg | mouth 4 (four) times | | | 11/03 | 10/03 | ed | | capsule | daily as needed. | | | 19 | 20 | | + + + +----+------+------+-------+ | | Take 1 tablet by | | 0 | 12/1 | 06/2 | Expir | | diphenoxylate-atropi | mouth 4 (four) times | | | 6/20 | 5/20 | ed | | ne (LOMOTIL) | daily as needed for | | | 16 | 20 | | | 2.5-0.025 mg per | Diarrhea. | | | | | | | tablet | | | | | | | + + + +----+------+------+-------+ | oxyCODONE 10 MG | Take 1 tablet by | 12 | 0 | 06/0 | 06/1 | Expir | | TABS | mouth every 6 hours | tablet | | 9/20 | 2/20 | ed | | | as needed for Pain | | | 20 | 20 | | | | for up to 3 days. | | | | | | + + + +----+------+------+-------+ | oxyCODONE 10 MG | Take 10 mg by mouth | | 0 | | 06/3 | Disco | | TABS | every 6 hours as | | | | 0/20 | ntinu | | | needed. 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 | 11/14/2019 | + + + | Acute pain of right shoulder | 12/06/2018 | + + + | Gastroesophageal reflux disease | 12/06/2018 | + + + + + | Overview: Added automatically from request for surgery [id number] | + + + + + | Left arm weakness | 09/14/2018 | + + + | Lumbar herniated disc | 07/20/2018 | + + + | Chest pain, unspecified | 06/29/2018 | + + + | Chronic obstructive lung disease | 05/31/2018 | + + + | Chronic post-traumatic stress disorder | 05/31/2018 | + + + | Degenerative lumbar spinal stenosis | 05/31/2018 | + + + | History of alcohol abuse | 05/31/2018 | + + + | Degeneration of thoracic intervertebral disc | 05/31/2018 | + + + | Abnormal finding of blood chemistry, unspecified | 10/05/2017 | + + + | Dissociative convulsions | 10/05/2017 | + + + | Elevated blood pressure reading | 10/05/2017 | + + + | Exposure to viral hepatitis | 10/05/2017 | + + + | Mixed hyperlipidemia | 01/29/2017 | + + + | 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 | | Last Assessment & Plan: | | Will continue with Infectious disease specialist. | + + + + + | VSD (ventricular septal defect) | 04/14/2016 | + + + | Congenital malformation of heart | 04/03/2016 | + + + + + | Overview: Last Assessment & Plan: Murmur is very loud and | | patient is symptomatic with chest pain and episodes of dizziness. | | Will get echocardiogram. | |Will get echocardiogram. | + + + + + | History of heroin abuse | 04/03/2016 | + + + | Mild persistent asthma with acute exacerbation | 04/03/2016 | + + + | Precordial pain | 04/03/2016 | + + + + + | Overview: Last Assessment & Plan: | | Typical ad atypical components. Will refer to cook morning. | | | | Rx for nitroglycerin. | | | | Will address blood pressure. | | | | Check cholesterol. | + + + + + | Intermittent asthma | 04/03/2016 | + + + | Diarrhea | 02/16/2016 | + + + | Bipolar I disorder | 02/16/2016 | + + + | Hepatitis B | [...] | reactions from medications. They wished to proceed.Overview: | | Last Assessment & Plan: This patient has symptoms of sacroiliac | | generated pain. 06/01/2013 he underwent a right sacroiliac joint | | steroid injection under fluoroscopic guidance. This provided | | more than 80% relief of his pain for more than 4 months. His | | pain has now returned and is now bilateral. He has significant | | tenderness over bilateral sacroiliac joints. Stressing the | | sacroiliac joints increases the pain in this area. His pain is | | consistent with sacroiliac generated pain. He is therefore | | candidate for left and right sacroiliac joint steroid injections | | under fluoroscopic guidance.Plan, alternatives, risks, and | | potential benefits of the procedure were discussed [...] | 11/16/2012 | + + + | Chronic pain associated with significant psychosocial dysfunction | 11/09/2012 | + + + | Chronic pain syndrome | 11/09/2012 | + + + | Gait instability | 11/09/2012 | + + + | Arthropathy of cervical facet joint | 06/22/2012 | + + + + + | Overview: Last Assessment & Plan: | | Please see discussion under cervical radicular pain | + + + + + | Degeneration of intervertebral disc of cervical region | 06/22/2012 | + + + + + | Overview: Last Assessment & Plan: | | Please see discussion under lumbar radicular pain. | | | | Last Assessment & Plan: | | Please see discussion under cervical radicular pain | | Overview: | | Last Assessment & Plan: | | Please see discussion under cervical radicular pain | + + + + + | Cervical radicular pain | 06/22/2012 | + + + + + | Overview: Last Assessment & Plan: This gentleman also has | | neck pain traveling to his right arm in the C6-7 dermatomal | | distribution. His cervical MRI showed scoliosis in his upper | | thoracic and cervical spine, degenerative disk and facet disease | | causing mild central stenosis and more left foraminal stenosis | | than right from C3-4 to C5-6, but moderate right foraminal | | stenosis at C6-7. We reviewed his MRI and discussed options. His | | symptoms are most likely due to the foraminal stenosis at C6-7. | | He has tried and failed other conservative measures. He is a | | candidate for a cervical epidural steroid injection. Will have | | to postpone this cervical epidural steroid injection until September | | since he has now have had 3 lumbar epidural steroid injections | | since 03-15-12. In September, he could go forward with another | | epidural steroid injection. He will call and make a f/u | | appointment in late August so that we can arrange for his cervical | | epidural steroid injection if he wishes. Would plan on a C7-T1 | | cervical epidural steroid injection under fluoroscopic guidance. | | Overview: Last Assessment & Plan: This [...] | + + + + + | Facet arthritis of lumbar region | 05/23/2012 | + + + + [...] | | return to review his MRI. | + + + + + | Irritable bowel syndrome with diarrhea | 03/13/2012 | + + + + + | Overview: Added automatically from request for surgery [id number] | + + + + + | Back pain | 03/13/2012 | + + + | Chronic hepatitis C virus infection | 03/13/2012 | + + + + + | Overview: Completed Harvoni treatment | | He is disease free | | Overview: | | Overview: | | Completed Harvoni treatment | | He is disease free | + + + + + | Benign essential hypertension | 03/13/2012 | + + + + + | Overview: Last Assessment & Plan: Will wait until after echo | | to address appropriate medication for high blood pressure Follow | | up in 2-3 weeks. | |Follow up in 2-3 weeks. | + + + + + | OTHER SPECIFIED DISORDER [...] update | + + + +---+ | Abdominal pain | | + +---+ | DEPRESSION | | + +---+ Resolved Problems + + + + | Problem | Noted | Resolved | | | Date | Date | + + + + | Arthropathy of lumbar facet joint | 05/23/19 | | | | 13 | 9 | + + + + + + | Overview: Overview: | | Last Assessment & Plan: | | Please see discussion under lumbar radicular pain. | | Last Assessment & Plan: | | Please see discussion under lumbar radicular pain. | + + Encounters +--------+ + + + + | Date | Type | Specialty | Care Team | Description | +--------+ + + + + | 11/13/ | Office | Pain Medicine | Deyvi Kovacs, | Cervical radicular | | 2020 | Visit | | [employer] | pain (Primary Dx); | | | | | | Degeneration of | | | | | | intervertebral disc | | | | | | of cervical region; | | | | | | Arthropathy of | | | | | | cervical facet | | | [...] | | | | opiate analgesic | +--------+ + + + + | 11/06/ | Telephone | Pain Medicine | Vitaliy Mendoza, | Referral | | 2019 | | | DO | | +--------+ + + + + | 11/05/ | Telephone | Pain Medicine | Deyvi Kovacs, | Follow-up | 2019 | | | [employer] | | +--------+ + + + + | 10/25/ | Telephone | Pain Medicine | Deyvi Kovacs, | Other (speak with | | 2019 | | | [employer] | provider ) | +--------+ + + + + | 10/23/ | Emergency | Emergency Medicine | Benji Zheng MD | Observed | 2019 | | | | seizure-like | | | | | | activity (HCC) | | | | | | (Primary Dx); | | | | | | Chronic bilateral | | | | | | low back pain with | | | | | | bilateral sciatica | +--------+ + + + + | 10/23/ | Office | Pain Medicine | Deyvi Kovacs, | Seizure disorder | | 2019 | Visit | | [employer] | ([facility]) (Primary Dx); | | | | | | Neuropathy due to | | | | | | HIV ([facility]); Facet | | | | | | arthritis of lumbar | | | | | | region; Sacroiliac | | | | | | joint pain; | | | | | | Degeneration of | | | | | | intervertebral disc | | | | | | of cervical region; | | | | | | Degeneration of | | | | | | thoracic | | | | | | intervertebral disc | +--------+ + + + + | 10/22/ | Telephone | Pain Medicine | Deyvi Kovacs, | Back Pain | | 2019 | | | [employer] | | +--------+ + + + + | 10/12/ | Telephone | Pain Medicine | Skyler Dong, | Advice Only | 2019 | | | MD | (Mobility Issue) | +--------+ + + + + from Last 3 Months Immunizations + + + + | Name | Administration Dates | Next Due | + + + + | INFLUENAZ PF | 02/09/2012 | | | TRIVALENT | | | | INTRADERMAL | | | + + + + | INFLUENZA 66 Y OR >, | 02/23/2011 | | | TRIVALENT HIGH-DOSE | | | + + + + | INFLUENZA PF | 02/24/2017, 03/09/2016 | | | QUAD(PED/ADOL/ADULT) | | | | ,PSKT or VIAL | | | + + + + | INFLUENZA TRIV | 03/19/2007 | | | W/PRES(PED/ADOL/ADUL | | | | T),MULTIDOSE | | | + + + + | PNEUMOCOCCAL | 02/07/2016 | | | CONJUGATE 13-VALENT | | | | (PCV13) | | | + + + + | PNEUMOCOCCAL | 02/24/2017, 03/10/2011 | | | POLYSACCHARIDE | | | | 23-VALENT (PPSV23) | | | + + + + | TDAP, (ADOL/ADULT) | 04/03/2014 | | + + + [...] + + + + Plan of Treatment +--------+---------+ + + + | Date | Type | Specialty | Care Team | Description | +--------+---------+ + + + | 12/05/ | Office | Pain Medicine | Vitaliy Mendoza, | | | 2019 | Visit | | DO [address] | | | | | | [place] | | | | | | [id number] | | | | | | | | +--------+---------+ + + + + + + + + | Health Maintenance | Due Date | Last | Comments | | | | Done | | + + + + + | Urine Drug Screening | | | | | | 3 | | | + + + + + | Adult Annual | | | | | Wellness Visit | 5 | | | + + + + + | Colorectal Cancer | | | | | Screening | 7 | | | | (Colonoscopy) | | | | + + + + + | Vaccine: Zoster (2 | | 09/08/19 | | | of 2) | 8 | 18 | | + + + + + | Vaccine: Influenza | | 03/25/20 | | | (#1) | 0 | 19, | | | | | 02/25/20 | | | | | 17, | | | | | 03/09/20 | | | | | 16, | | | | | Addition | | | | | al | | | | | history | | | | | exists | | + + + + + | Vaccine: | | 04/03/20 | | | Dtap/Tdap/Td (2 - | 4 | 14 | | | Td) | | | | + + + + + | Vaccine: | Completed | 02/25/20 | | | Pneumococcal 19-64 | | 17, | | | | | 02/07/20 | | | | | 16, | | | | | 03/10/20 | | | | | 11 | | + + + + + [...] | | Note - | | | Eric, | | | Lab In | | [...] | | | ON? | | | | | | 0 | | | :? | | | GIL[place], | | | ELMER | | | L | | | C?MRN: | | | | | | [id number] | | | [id number] | | | riteri | | | [...] | | | St. | | | [place] | | | y | | | [...] | | | St. | | | [place] | | | y | | | [...] | | | St. | | | [place] | | | y | | | [...] | | | lags | | | [place] | | | ED | | | Dispar | | | ity | | | Measur | | | e - | | | [place] | | | has | | | [...] | | | s. | | | [place] | | | | | | Health [...] | | | By: | | | [place] | | | | | | Health [...] | | | St. | | | [place] | | | y | | | [...] | | | St. | | | [place] | | | y H. | | [...] | | | ed.? | | | 2020 | | | [employer] | | | tive | | | [employer] | | | l | | | [employer] | | | logies | | | , [employer] | | | - | | | [email or web address] | | | llecti | | | vemedi | | | [email or web address] | | | m | +---+--------+ from Last 3 Months Results CBC with Differential (10/24/2019 9:37 AM PDT) [...] 0.03Comment: Testing | 0.00 - 0.10 | [facility] | | | Absolute | performed at [facility];[address] | LABORATORY | | | | [address];[place], [place] | | | | | | [address] | | | | + + + + + + + + | Specimen | + + | Blood | + + + + + + + | Performing | Address | City/State/Zipcode | Phone Number | | Organization | | | | + + + + + | [facility] | [address] | [place] [address] | [phone] | + + + + + Comprehensive Metabolic Panel (10/24/2019 9:37 AM PDT) [...] 22 | 10 - 65 U/L | [facility] | | | | | | LABORATORY | | + + + + + + | Estimated | >60Comment: GFR <60: | >60 | [facility] | | | GFR | CHRONIC KIDNEY [...] | | | | | performed at [facility];[address] | | | | | | [address];[place], [place] | | | | | | [address] | | | | + + + + + + + + | Specimen | + + | Blood | + + + + + + + | Performing | Address | City/State/Zipcode | Phone Number | | Organization | | | | + + + + + | [facility] | [address] [facility] | [place] [address] | [phone] | + + + + + from Last 3 Months Insurance + +--------+ +--------+ +---------+--------+ | Payer | Benefi | Subscriber | Effect | Phone | Address | Type | | | t Plan | ID | wilmer | | | | | | / | | Dates | | | | | | Group | | | | | | + +--------+ +--------+ +---------+--------+ | MEDICARE | MEDICA | [id number] | 01/15/19 | [phone] | | Medica | | | RE | | 94-Pre | 5 | | re | | | PART A | | sent | | | | | | AND B | | | | | | + +--------+ +--------+ +---------+--------+ | MEDICARE | MEDICA | [id number] | 01/15/19 | [phone] | | Medica | | | RE | | 94-Pre | 5 | | re | | | PART A | | sent | | | | | | AND B | | | | | | + +--------+ +--------+ +---------+--------+ | [employer] | MODA | [id number] | 05/17/19 | [phone] | | Medica | | MEDICAID HMO | HEALTH | | 20-Pre | 1 | | id | | | MDCD | | sent | | | | | | HMO OR | | | | | | + +--------+ +--------+ +---------+--------+ | [employer] | MODA | [id number] | | [phone] | | Medica | | MEDICAID HMO | HEALTH | | 020-Pr | 1 | | id | | | MDCD | | esent | | | | | | [place] | | | | | | + +--------+ +--------+ +---------+--------+ + +--------+ +--------+ + + | Guarantor Name | Accoun | Relation to | Date | Phone | Billing Address | | | t Type | Patient | of | | | | | | | | | | + +--------+ +--------+ + + | Ivan Giles | Person | Self | [birth year] | | [address] | | | al/Fam | | 1966 | [phone] | [place], [place] | | | arvin | | | 1 (Home) | [address] | + +--------+ +--------+ + + | Ivan Giles | Person | Self | [birth year] | | [address] | | | al/Fam | | 1966 | [phone] | [place], [place] | | | arvin | | | 0 (Home) | [address] | + +--------+ +--------+ + + Advance Directives + + + + + | Type | Date Recorded | Patient | Explanation | | | | Sound Controller | | + + + + + | Power of | | | | | Pot Builder | | | | + + + + + | Advance | 04/15/2016 | | | | Directive | 7:18 AM | | | + + + + +
--- OUTSIDE RECORDS SUMMARY | ~2019-11-25 | XMS | Encounter Summary ---
Demographics + + + | Address | [address] | | | [place] [address] | + + + | Home Phone [...] + + + | Author | [facility] | + + + | Organization | [...] [place] | | | | | [address] | | + + + + + Care Team Providers + +------+ + | Care Management Consulting Name | Role | Phone | + +------+ + | Jax Cabrera MD | PCP | | + +------+ + Reason for Visit + + + | Reason | Comments | + + + | Medical Records | [facility] | | Review | | + + + Encounter Details +--------+ + + + + | Date | Type | Department | Care Team | Description | +--------+ + + + + | 03/26/ | Documentati | [facility] Primary Care | Fred, | Medical Records | | 2016 | on | at [facility] | MD Caio | Review ([facility]) | | | | [address] | [address] | | | | | Loop Physician's | [facility] [place], | | | | | Pavilion, 3rd floor | [place] [address] | | | | | [place], [place] | [phone] | | | | | [address] | | | | | | [phone] | | | +--------+ + + + [...]
--- OUTSIDE RECORDS SUMMARY | ~2019-11-25 | XMS | Encounter Summary ---
Demographics + + + | Address | [address] | | | [place] [address] | + + + | Home Phone | | + + + | Preferred Language | Unknown | + + + | Marital Status | | + + + | Sikh Affiliation | 1013 | + + + | Race | Unknown | + + + | Ethnic Group | Unknown | + + + Author + + + | Author | [facility] | | | and [place] | + + + | Organization | [facility] | | | [...] [place] | | | | | [address] | | + + + + + Care Team Providers + +------+ + | Care Security Assistant Name | Role | Phone | + +------+ + | Jax Cabrera MD | PCP | | + +------+ + Encounter Details +--------+ + + + + | Date | Type | Department | Care Team | Description | +--------+ + + + + | 12/06/ | Hospital | [facility] | Conversion | | | 2019 | Encounter | [facility] | Transaction, | | | | | [address] | Provider Unknown | | | | | [address] [place], [place] | [phone] | | | | | [address] | (Fax) | | | | | [phone] | | | +--------+ + + + [...] ondansetron | Take 1 tablet by | | 0 | 12/07/19 | | | (ZOFRAN ODT) 4 mg | mouth every 8 | | | 19 | 9 | | disintegrating | (eight) hours as | | | | | | tablet | needed for Nausea | | | | | | | for up to 7 days. | | | | | [...] [place] | | | | | | [address] | | | | | | | | +--------+---------+ + + + documented as of this encounter Visit Diagnoses Not on filedocumented in this encounter"
--- OUTSIDE RECORDS SUMMARY | ~2019-11-25 | XMS | Encounter Summary ---
Demographics + + + | Address | [address] | | | [place] [address] | + + + | Home Phone [...] + + | Author | [facility] | + + + | Organization | [facility] | + + + | Address | Unknown | + + + | Phone | Unavailable | + + + Support + + + + + | Name | Relationship | Address | Phone | + + + + + | Gabriel Greenberg | ECON | [address] | | | | | [place] | | | | | [address] | | + + + + + Care Team Providers + +------+ + | Care Solid Tire Tuber Machine Operator Name | Role | Phone | + +------+ + | Jax Cabrera MD | PCP | | + +------+ + Reason for Visit + + + | Reason | Comments | + + + | Update from Patient | | + + + Encounter Details +--------+ + + + + | Date | Type | Department | Care Team | Description | +--------+ + + + + | 06/24/ | Telephone | [facility] | Fred, | Update from Patient | | 2017 | | at [facility] | MD Caio | | | | | [address] | [address] | | | | | Loop Physician's | [place], | | | | | Pavilion, 3rd floor | [place] [address] | | | | | [place], [place] | [phone] | | | | | [address] | | | | | | [phone] | | | +--------+ + + + [...]
--- OUTSIDE RECORDS SUMMARY | ~2019-11-25 | XMS | Encounter Summary ---
Demographics + + + | Address | [address] | | | [place] [address] | + + + | Home Phone | | + + + | Preferred Language | Unknown | + + + | Marital Status | | + + + | Protestant Affiliation | 1013 | + + + | Race | Unknown | + + + | Ethnic Group | Unknown | + + + Author + + + | Author | [facility] | | | and [place] | + + + | Organization | [facility] | | | [...] [place] | | | | | [address] | | + + + + + Care Team Providers + +------+ + | Care Rn Ambulatory Name | Role | Phone | + +------+ + | Jax Cabrera MD | PCP | | + +------+ + Reason for Visit +--------+--------+ + | Reason | Onset | Comments | | | Date | | +--------+--------+ + | Other | 10/25/ | speak with provider | | | 2020 | | +--------+--------+ + Encounter Details +--------+ + + + + | Date | Type | Department | Care Team | Description | +--------+ + + + + | 10/25/ | Telephone | [facility] | Deyvi Kovacs, | Other (speak with | | 2019 | | INTERVENTIONAL PAIN | CARDIOLOGY TEACHER [address] | provider ) | | | | MGMT [address] | | | | | [address], | [place] [address] | | | | | [place] [address] | [phone] | | | | | [phone] | | | +--------+ + + + [...] this encounter Miscellaneous Notes Telephone Encounter - Kelly Boone, Fire Chief'S Aide - 11/01/2019 1:55 PM PDTI called patient on the number listed to relay message as stated in LEIA Stephenson's note . However, when I called I was informed that I had called the wrong number and that they did not have a [place]. I did not give any patient information, other than first name when I was calling 2:1 8 PM PDTTelephone Encounter - Ruby Alfaro I - 10/30/2019 10:34 AM PDTRandall, is calling again for Other (speak with provider ) and would like a call back. Additional Call Details: States the medication given to him at the hospital is working wel l. States he has not felt this good in a very long time. elephone Encounter - Thelma Epps - 2019 1:16 PM PDTRandall, is calling regarding Other (speak w ith provider ) and would like a call back. Additional Call Details: Patient is requesting to speak with provider regarding last appoi ntment that he had to leave during. He stated the hospital was able to give him some pain me dication and his pain level is at at 2. He is wanting to know when he should reschedule with provider also If this is a symptom based call, [...] [place] | | | | | | [address] | | | | | | | | +--------+---------+ + + + documented as of this encounter Visit Diagnoses Not on filedocumented in this encounter"
--- OUTSIDE RECORDS SUMMARY | ~2019-11-25 | XMS | Encounter Summary ---
Demographics + + + | Address | [address] | | | [place] [address] | + + + | Home Phone | | + + + | Preferred Language | Unknown | + + + | Marital Status | | + + + | Judaism Affiliation | 1013 | + + + [...] [place] | | | | | [address] | | + + + + + Care Team Providers + +------+ + | Care Kettle Room Helper Name | Role | Phone | [...] Closed | | Radiology | Diagnoses | Cabrera, | [facility] | | | | | Pericardial | Jax Dubois MD | [address] | | | | | pain | [address] | [place], | | | | | Congenital | [address] | [place] | | | | | heart | [place], | [address] | | | | | disease | [place] [address] | Phone: | | | | | Essential | Phone: | [phone] | | | | | hypertension | [phone] | Fax: | | | | | with goal | Fax: | [phone] | | | | | blood | [phone] | | | | | | pressure | | | | | | | less than | | | | | | | 140/90 HIV | | | | | | | (human | | | | | | | immunodefici | | | | | | | ency virus | | | | | | | infection) | | | | | | | (HCC) | | | | | | | Procedures | | | | | | | ECHO | | | | | | | Complete | | | +--------+--------+ + + + + Reason for Visit Auth/Cert +--------+--------+ + + + + | Status [...] | +--------+ + + + + | 04/15/ | Hospital | [facility] | Jax Cabrera MD | Pericardial pain; | | 2016 | Encounter | [facility] ECHO [address] | [address] [facility] | Congenital heart | | | | [place] | [place] | disease; Essential | | | | [place] [address] | [address] | hypertension with | | | | [phone] | | goal blood pressure | | | | | Beryl Sawyer | less than 140/90; | | | | | A, Technologist | HIV (human | | | | | [place] | immunodeficiency | | | | | [id number] | virus infection) | | | | | | (HCC) | +--------+ + + + + Social [...] [place] | | | | | | [address] | | | | | | | | +--------+---------+ + + + documented as of this encounter Procedures + +--------+ + + + | Procedure Name | Priori | Date/Time | Associated Diagnosis | Comments | | | ty | | | | + +--------+ + + + | ECHO COMPLETE | Routin | 04/15/2016 | Pericardial pain | Results for this | | | e | 8:43 AM | Congenital heart | procedure are in the | | | | PST | disease Essential | results section. | | | | | hypertension with | | | | | | goal blood pressure | | | | | | less than 140/90 | | | | | | HIV (human | | | | | | immunodeficiency | | | | | | virus infection) | | | | | | (HCC) | | + +--------+ + + + documented in this encounter Results ECHO Complete (04/15/2016 8:43 AM PST) + +-------+ + + + | Component | Value | Ref Range | Performed | Pathologist | | | | | At | Signature | + +-------+ + + + | LVEF-TTE | 74 | | [facility] | | | TRANSTHORAC | | | | | | IC ECHO | | | | | + +-------+ + + + + + | Specimen | + + | | + + + +------- --------+ | Narrative | Perfor med At | + +------- --------+ | Transthoracic | [facility] | | Echocardiography Report (TTE) Demographics Patient Name CHAVEZ | | | [place] Room Number TETO Patient Number | | | [id number] Date of Study 04/15/2016 Visit | | | Number [id number] Referring | | | Physician ANGELA Fong Number Date of 1965 | | | Territory Representative MALIHA ACOSTA, | | | RDCS | | | | | | [place], | | | [place] Age | | | 50 year(s) Interpreting JOSE SOOD MD | | | Scanning Tech Gender | | | Male Nurse Procedure Type of Study TTE | | | procedure: ECHO Complete. Procedure dateDate: 04/15/2016Start: 08:34 | | | AM Study Location: Echo Lab Patient Status: RoutineHeight: 66 | | | inchesWeight: 152 poundsBSA: 1.78 m^2BMI: 24.53 kg/m^2Rhythm: Sinus | | | bradycardiaHR: 57 bpm ConclusionsSummary1. Normal biventricular | | | systolic function. The calculated ejection fractionis 74%.2. Mild left | | | atrial chamber enlargement.3. A restrictive small ventricular septal | | | defect is seen. Shunt appears toonly be left to right, directed in the | | | right ventricular apex and into theright ventricular outflow tract.4. | | | No significant valve dysfunction, including no involvement of the | | | aorticor pulmonic valves.5. No significant changes compared to | | | patient's prior echocardiogram uc7784.5. No coarctation of the | | | aorta.6. The patient does not meet newly revised criteria for | | | endocarditisprophylaxis. | | | Signature | | | | | | PM | | | -------- FindingsMitral ValveStructurally normal mitral valve without | | | significant stenosis orregurgitation.Aortic ValveAortic valve is | | | trileaflet with good systolic excursion.Tricuspid ValveStructurally | | | normal tricuspid valve without significant stenosis | | | orregurgitation.Pulmonic ValveStructurally normal pulmonic valve | | | without significant stenosis orregurgitation.Left AtriumMild left | | | atrial enlargement.Left VentricleLeft ventricle is normal in size and | | | function. Ejection fraction isestimated at 74%.Right AtriumNormal | | | right atrium.Right VentricleNormal right ventricular structure and | | | function.Pericardial EffusionNo evidence of any pericardial | | | effusion.Pleural EffusionNo evident pleural effusion | | | identified.MiscellaneousNormal aortic root.The IVC appears | | | normal.There is a small muscular VSD approximately 3 mm in diameter | | | with qlwva-so-uerey shunt. Precise velocity is not measured. Valves | | | Mitral Valve Tissue Doppler Septal e' Velocity: 0.14 m/s Structures | | | Left Atrium LA A/P Dimension: 3.6 cm | | | EF Fwevhbifl24% Left Ventricle Diastolic Dimension: 5.3 | | | cm Systolic Dimension: 3.1 cm Septum Diastolic: 1.1 cm | | | PW Diastolic: 0.9 cm EF Calculated: 74% | | |2009. | | |5. No coarctation of the aorta. | | |6. The patient does not meet newly revised criteria for endocarditis | | |prophylaxis. | | | | | |Signature | | | | | | Electronically signed by JOSE SOOD MD(Interpreting physician) on | | | 04/15/2016 03:11 PM | | | | | | | | |Findings | | |Mitral Valve | | |Structurally normal mitral valve without significant stenosis or | | |regurgitation. | | |Aortic Valve | | |Aortic valve is trileaflet with good systolic excursion. | | |Tricuspid Valve | | |Structurally normal tricuspid valve without significant stenosis or | | |regurgitation. | | |Pulmonic Valve | | |Structurally normal pulmonic valve without significant stenosis or | | |regurgitation. | | |Left Atrium | | |Mild left atrial enlargement. | | |Left Ventricle | | |Left ventricle is normal in size and function. Ejection fraction is | | |estimated at 74%. | | |Right Atrium | | |Normal right atrium. | | |Right Ventricle | | |Normal right ventricular structure and function. | | |Pericardial Effusion | | |No evidence of any pericardial effusion. | | |Pleural Effusion | | |No evident pleural effusion identified. | | |Miscellaneous | | |Normal aortic root. | | |The IVC appears normal. | | |There is a small muscular VSD approximately 3 mm in diameter with a | | |lmuj-ur-fwsnf shunt. Precise velocity is not measured. | | | | | |Valves | | | | | | Mitral Valve | | | | | | Tissue Doppler | | | | | | Septal e' Velocity: 0.14 m/s | | | | | |Structures | | | | | | Left Atrium | | | | | | LA A/P Dimension: 3.6 cm EF Toyaqdsaa94% | | | | | | Left Ventricle | | | | | | Diastolic Dimension: 5.3 cm Systolic Dimension: 3.1 cm | | | Septum Diastolic: 1.1 cm | | | PW Diastolic: 0.9 cm | | | EF Calculated: 74% | | | | | + +------- --------+ + + | Procedure Note | + + | Eric, Rad Results In - 04/15/2016 3:11 PM [facility] Transthoracic Echocardiography Report | | (TTE) Demographics Patient Name CHAN RODRIGUEZ Room Number TETO | | Patient Number [id number] Date of Study 04/15/2016 Visit Number | | [id number] Referring Physician ANGELA HAYWARD T Number | | Date of 1965 Territory Representative MALIHA ACOSTA, | | RD | | [place] | | Age 50 year(s) Interpreting JOSE SOOD MD | | Scanning Tech Gender Male NurseProcedureType of | | Study TTE procedure: ECHO Complete.Procedure dateDate: 04/15/2016Start: 08:34 AMStudy | | Location: Echo LabPatient Status: RoutineHeight: 66 inchesWeight: 152 poundsBSA: 1.78 | | m^2BMI: 24.53 kg/m^2Rhythm: Sinus bradycardiaHR: 57 bpmConclusionsSummary1. Normal | | biventricular systolic function. The calculated ejection fractionis 74%.2. Mild left | | atrial chamber enlargement.3. A restrictive small ventricular septal defect is seen. | | Shunt appears toonly be left to right, directed in the right ventricular apex and into | | theright ventricular outflow tract.4. No significant valve dysfunction, including no | | involvement of the aorticor pulmonic valves.5. No significant changes compared to | | patient's prior echocardiogram wh0590.5. No coarctation of the aorta.6. The patient does | | not meet newly revised criteria for | | endocarditisprophylaxis.Signature | | | | PM FindingsMi | | tral ValveStructurally normal mitral valve without significant stenosis | | orregurgitation.Aortic ValveAortic valve is trileaflet with good systolic | | excursion.Tricuspid ValveStructurally normal tricuspid valve without significant | | stenosis orregurgitation.Pulmonic ValveStructurally normal pulmonic valve without | | significant stenosis orregurgitation.Left AtriumMild left atrial enlargement.Left | | VentricleLeft ventricle is normal in size and function. Ejection fraction isestimated at | | 74%.Right AtriumNormal right atrium.Right VentricleNormal right ventricular structure | | and function.Pericardial EffusionNo evidence of any pericardial effusion.Pleural | | EffusionNo evident pleural effusion identified.MiscellaneousNormal aortic root.The IVC | | appears normal.There is a small muscular VSD approximately 3 mm in diameter with | | ptwru-vw-vqjtr shunt. Precise velocity is not measured.Valves Mitral Valve Tissue | | Doppler Septal e' Velocity: 0.14 m/sStructures Left Atrium LA A/P Dimension: 3.6 cm | | EF Xwhsbwoms66% Left Ventricle Diastolic Dimension: 5.3 cm | | Systolic Dimension: 3.1 cm Septum Diastolic: 1.1 cm PW Diastolic: 0.9 cm EF | | Calculated: 74% | | | |Conclusions | |Summary | |1. Normal biventricular systolic function. The calculated ejection fraction | |is 74%. | |2. Mild left atrial chamber enlargement. | |3. A restrictive small ventricular septal defect is seen. Shunt appears to | |only be left to right, directed in the right ventricular apex and into the | |right ventricular outflow tract. | |4. No significant valve dysfunction, including no involvement of the aortic | |or pulmonic valves. | |5. No significant changes compared to patient's prior echocardiogram of | |2009. | |5. No coarctation of the aorta. | |6. The patient does not meet newly revised criteria for endocarditis | |prophylaxis. | | | |Signature | | | | Electronically signed by JOSE SOOD MD(Interpreting physician) on | | 04/15/2016 03:11 PM | | | | | |Findings | |Mitral Valve | |Structurally normal mitral valve without significant stenosis or | |regurgitation. | |Aortic Valve | |Aortic valve is trileaflet with good systolic excursion. | |Tricuspid Valve | |Structurally normal tricuspid valve without significant stenosis or | |regurgitation. | |Pulmonic Valve | |Structurally normal pulmonic valve without significant stenosis or | |regurgitation. | |Left Atrium | |Mild left atrial enlargement. | |Left Ventricle | |Left ventricle is normal in size and function. Ejection fraction is | |estimated at 74%. | |Right Atrium | |Normal right atrium. | |Right Ventricle | |Normal right ventricular structure and function. | |Pericardial Effusion | |No evidence of any pericardial effusion. | |Pleural Effusion | |No evident pleural effusion identified. | |Miscellaneous | |Normal aortic root. | |The IVC appears normal. | |There is a small muscular VSD approximately 3 mm in diameter with a | |soxv-mv-vpyvl shunt. Precise velocity is not measured. | | | |Valves | | | | Mitral Valve | | | | Tissue Doppler | | | | Septal e' Velocity: 0.14 m/s | | | |Structures | | | | Left Atrium | | | | LA A/P Dimension: 3.6 cm EF Ojlcjdjvf53% | | | | Left Ventricle | | | | Diastolic Dimension: 5.3 cm Systolic Dimension: 3.1 cm | | Septum Diastolic: 1.1 cm | | PW Diastolic: 0.9 cm | | EF Calculated: 74% | + + + +---------+ + + | Performing | Address | City/State/Zipcode | Phone Number | | Organization | | | | + +---------+ + + | [facility] | | | | + +---------+ + + documented in this encounter Visit Diagnoses + + | Diagnosis | + + | Pericardial pain Precordial pain | + + | 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
--- OUTSIDE RECORDS SUMMARY | ~2019-11-25 | XMS | Encounter Summary ---
Demographics + + + | Address | [address] | | | [place] [address] | + + + | Home Phone [...] + + | Author | [facility] | + + + | Organization | [facility] | + + + | Address | Unknown | + + + | Phone | Unavailable | + + + Support + + + + + | Name | Relationship | Address | Phone | + + + + + | Gabriel Greenberg | ECON | [address] | | | | | [place] | | | | | [address] | | + + + + + Care Team Providers + +------+ + | Care Power Cleaner Operator Name | Role | Phone | + +------+ + | Jax Cabrera MD | PCP | | + +------+ + Reason for Visit + + + | Reason | Comments | + + + | Dizziness | | + + + | Nauseated | | + + + | Increased frequency | | | of urination | | + + + | HBP - High blood | | | pressure | | + + + Encounter Details +--------+ + + + + | Date | Type | Department | Care Team | Description | +--------+ + + + + | 11/27/ | Telephone | [facility] Primary Care | Fred, | Dizziness; | | 2017 | | at [facility] | MD Caio | Nauseated; Increased | | | | [address] | [address] | frequency of | | | | Loop Physician's | [place], | urination; HBP - | | | | Pavilion, 3rd floor | [place] [address] | High blood pressure | | | | [place], [place] | [phone] | | | | | [address] | | | | | | [phone] | | | +--------+ + + + [...]
--- OUTSIDE RECORDS SUMMARY | ~2019-11-25 | XMS | Encounter Summary ---
Demographics + + + | Address | [address] | | | [place] [address] | + + + | Home Phone | | + + + | Preferred Language | Unknown | + + + | Marital Status | Unmarried Domestic Partner | + + + | Druze Affiliation | NON | + + + | Race | White | + + + | Ethnic Group | Not or | + + + Author + + + | Author | [facility] | + + + | Organization | [...] [place] | | | | | [address] | | + + + + + Care Team Providers + +------+ + | Care Uke Operator Name | Role | Phone | + +------+ + | Jax Cabrera MD | PCP | | + +------+ + Reason for Visit + + + | Reason | Comments | + + + | Social work | Issues with medical records/practice | | consultation | | + + + Encounter Details +--------+ + + + + | Date | Type | Department | Care Team | Description | +--------+ + + + + | 04/13/ | Telephone | [facility] Primary Care | Krista Lo | Social work | | 2017 | | at [facility] | [address] | consultation (Issues | | | | [address] [place] | [place], | with medical | | | | Loop [address] | [place] [address] | records/practice) | | | | [place], [address] [place] [address] | | | | | | [place], [place] | | | | | | [address] | | | | | | [phone] | | | +--------+ + + + [...]
--- OUTSIDE RECORDS SUMMARY | ~2019-11-25 | XMS | Encounter Summary ---
Demographics + + + | Address | [address] | | | [place] [address] | + + + | Home Phone | | + + + | Preferred Language | Unknown | + + + | Marital Status | | + + + | Yazidi Affiliation | 1013 | + + + | Race | Unknown | + + + | Ethnic Group | Unknown | + + + Author + + + | Author | [facility] | | | and [place] | + + + | Organization | [facility] | | [...] [place] | | | | | [address] | | + + + + + Care Team Providers + +------+ + | Care Bioprocess Engineer Name | Role | Phone | + +------+ + | Jax Cabrera MD | PCP | | + +------+ + Reason for Visit + +--------+ + | Reason | Onset | Comments | | | Date | | + +--------+ + | Back Pain | 06/28/ | | | | 2020 | | + +--------+ + Encounter Details +--------+ + + + + | Date | Type | Department | Care Team | Description | +--------+ + + + + | 06/28/ | Telephone | [facility] | Deyvi Kovacs, | Back Pain | | 2020 | | [facility] | PROFESSOR OF FORESTRY [address] | | | | | [address] | | | | | [address] | [place] [address] | | | | | [place], [place] | [phone] | | | | | [address] | | | | | | [phone] | | | +--------+ + + + [...] Miscellaneous Notes Telephone Encounter - Thelma 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 I have booked a follow up with Deyvi noguera tomorrow afternoon at 1425- patient agrees. Electronically signed by Bean Griffin [facility] Morgue Attendant at 06/28/2019 7:37 AM PSTdocumented in this encounter Plan of Treatment +--------+---------+ + + + | Date | Type | Specialty | Care Team | Description | +--------+---------+ + + + | 12/05/ | Office | Pain Medicine | Vitaliy Mendoza, | | | 2019 | Visit | | DO [address] | | | | | | [place] | | | | | | [phone] | | | | | | | | +--------+---------+ + + + documented as of this encounter Visit Diagnoses Not on filedocumented in this encounter"
--- OUTSIDE RECORDS SUMMARY | ~2019-11-25 | XMS | Encounter Summary ---
Demographics + + + | Address | [address] | | | [place] [address] | + + + | Home Phone | | + + + | Preferred Language | Unknown | + + + | Marital Status | Unmarried Domestic Partner | + + + | Adventist Affiliation | NON | + + + | Race | White | + + + | Ethnic Group | Not or | + + + Author + + + | Author | [facility] | + + + | Organization | [facility] | + + + | Address | Unknown | + + + | Phone | Unavailable | + + + Support + + + + + | Name | Relationship | Address | Phone | + + + + + | Gabriel Greenberg | ECON | [address] | | | | | [place] | | | | | [address] | | + + + + + Care Team Providers + +------+ + | Care Examination Proctor Name | Role | Phone | + +------+ + | Jax Cabrera MD | PCP | | + +------+ + Encounter Details +--------+------+ + + + | Date | Type | Department | Care Team | Description | +--------+------+ + + + | 06/17/ | Lab | Laboratory at [facility] | | HIV (human | | 2017 | | [address] | | immunodeficiency | | | | Loop Physician's | | virus infection) | | | | Pavilion, 3rd floor | | ([facility]) | | | | [place], [place] | | | | | | [address] | | | | | | [phone] | | | +--------+------+ + + + [...] CBC AND AUTO DIFF | Routin | 06/17/2016 | HIV (human | Results for this | | | e | 3:05 PM | immunodeficiency | procedure are in the | | | | PST | virus infection) | results section. | | | | | (HCC) | | + +--------+ + + + | HIV QUANTITATIVE | Routin | 06/17/2016 | HIV (human | Results for this | | PCR, PLASMA | e | 3:05 PM | immunodeficiency | procedure are in the | | | | PST | virus infection) | results section. | | | | | (HCC) | | + +--------+ + + + | CD4 (T CELL), BLOOD | Routin | 06/17/2016 | HIV (human | Results for this | | | e | 3:05 PM | immunodeficiency | procedure are in the | | | | PST | virus infection) | results section. | | | | | (HCC) | | + +--------+ + + + | CBC, WITH | Routin | 06/17/2016 | HIV (human | Results for this | | DIFFERENTIAL | e | 3:05 PM | immunodeficiency | procedure are in the | | | | PST | virus infection) | results section. | | | | | (HCC) | | + +--------+ + + + | VITAMIN D, | Routin | 06/17/2016 | HIV (human | Results for this | | 25-HYDROXY, SERUM | e | 3:05 PM | immunodeficiency | procedure are in the | | | | PST | virus infection) | results section. | | | | | (HCC) | | + +--------+ + + + | COMPLETE METABOLIC | Routin | 06/17/2016 | HIV (human | Results for this | | SET | e | 3:05 PM | immunodeficiency | procedure are in the | | (NA,K,CL,CO2,BUN,CRE | | PST | virus infection) | results section. | | AT,GLUC,CA,AST,ALT,B | | | (HCC) | | | TORIBIO TOTAL,ALK | | | | | | PHOS,ALB,PROT TOTAL) | | | | | + +--------+ + + + | RPR SERUM | Routin | 06/17/2016 | HIV (human | Results for this | | | e | 3:05 PM | immunodeficiency | procedure are in the | | | | PST | virus infection) | results section. | | | | | (HCC) | | + +--------+ + + + | TSH | Routin | 06/17/2016 | HIV (human | Results for this | | | e | 3:05 PM | immunodeficiency | procedure are in the | | | | PST | virus infection) | results section. | | | | | (HCC) | | + +--------+ + + + | TESTOSTERONE, SERUM | Routin | 06/17/2016 | HIV (human | Results for this | | | e | 3:05 PM | immunodeficiency | procedure are in the | | | | PST | virus infection) | results section. | | | | | (HCC) | | + +--------+ + + + | LUTEINIZING HORMONE, | Routin | 06/17/2016 | HIV (human | Results for this | | SERUM | e | 3:05 PM | immunodeficiency | procedure are in the | | | | PST | virus infection) | results section. | | | | | (HCC) | | + +--------+ + + + | FSH, SERUM | Routin | 06/17/2016 | HIV (human | Results for this | | | e | 3:05 PM | immunodeficiency | procedure are in the | | | | PST | virus infection) | results section. | | | | | (HCC) | | + +--------+ + + + | LIPID SET (TRIG, T | Routin | 06/17/2016 | HIV (human | Results for this | | CHOL, HDL, CALC LDL) | e | 3:05 PM | immunodeficiency | procedure are in the | | | | PST | virus infection) | results section. | | | | | (HCC) | | + +--------+ + + + documented in this encounter Results CBC AND AUTO DIFF (06/17/2016 3:05 PM PST) + + + + + + | Component | Value | Ref Range | Performed | Pathologist | | | | | At | Signature | + + + + + + | WHITE CELL | 3.62 | 3.50 - 10.80 | [facility] | | | COUNT | | K/cu mm | LABORATORY | | | | | | SERVICES, | | | | | | CORE | | + + + + + + | RED CELL | 5.03 | 4.50 - 6.00 | [facility] | | | COUNT | | M/cu mm | LABORATORY | | | | | | SERVICES, | | | | | | CORE | | + + + + + + | HEMOGLOBIN | 14.3 | 13.5 - 17.5 | [facility] | | | | | g/dL | LABORATORY | | | | | | SERVICES, | | | | | | CORE | | + + + + + + | HEMATOCRIT | 41.3 | 41.0 - 53.0 % | [facility] [...] + + + | RDW SD | 38.6 | 35.1 - 46.3 fL | [facility] | | | | | | LABORATORY | | | | | | SERVICES, | | | | | | CORE | | + + + + + + | PLATELET | 147 (L) | 150 - 400 K/cu | [facility] | | | COUNT | | mm | LABORATORY | | | | | | SERVICES, | | | | | | CORE | | + + + + + + | MPV | 10.6 | 9.7 - 12.3 fL | [facility] [...] + + + + | NEUTROPHIL | 45.5 (L) | 50.0 - 70.0 % | [facility] | | | % | | | LABORATORY | | | | | | SERVICES, | | | | | | CORE | | + + + + + + | LYMPHOCYTE | 42.3 (H) | 18.0 - 42.0 % | [facility] | | | % | | | LABORATORY | | | | | | SERVICES, | | | | | | CORE | | + + + + + + | MONOCYTE % | 10.2 (H) | 3.5 - 9.0 % | [facility] | | | | | | LABORATORY | | | | | | SERVICES, | | | | | | CORE | | + + + + + + | EOS % | 1.4 | 1.0 - 3.0 % | [facility] | | | | | | LABORATORY | | | | | | SERVICES, | | | | | | CORE | | + + + + + + | BASO % | 0.6 | 0.0 - 2.0 % | [facility] [...] + + + + | NEUTROPHIL | 1.65 (L) | 1.80 - 7.70 | [facility] | | | # | | K/cu mm | LABORATORY | | | | | | SERVICES, | | | | | | CORE | | + + + + + + | LYMPHOCYTE | 1.53 | 1.00 - 4.80 | [facility] | | | # | | K/cu mm | LABORATORY | | | | | | SERVICES, | | | | | | CORE | | + + + + + + | MONOCYTE # | 0.37 | 0.10 - 0.90 | [facility] | | | | | K/cu mm | LABORATORY | | | | | | SERVICES, | | | | | | CORE | | + + + + + + | EOS # | 0.05 | 0.00 - 0.50 | [facility] | [...] [facility] | [address] | [place] [address] | | | SERVICES, CORE | [address] | | | + + + + + LIPID SET (TRIG, T CHOL, HDL, CALC LDL) (06/17/2016 3:05 PM PST) + +---------+ + + + | Component | Value | Ref Range | Performed | Pathologist | | | | | At | Signature | + +---------+ + + + | CHOLESTEROL | 155 | <200 mg/dL | [facility] | | | (LAB) | | | LABORATORY | | | | | | SERVICES, | | | | | | CORE | | + +---------+ + + + | TRIGLYCERID | 47 | <150 mg/dL | [facility] | | | ES | | | LABORATORY | | | | | | SERVICES, | | | | | | CORE | | + +---------+ + + + | HDL | 50 | >40 mg/dL | [facility] | | | CHOLESTEROL | | | LABORATORY | | | | | | SERVICES, | | | | | | CORE | | + +---------+ + + + | HDL CMNT | No Hemo | | [facility] | | | | | | LABORATORY | | | | | | SERVICES, | | | | | | CORE | | + +---------+ + + + | LDL | 96 | <100 mg/dL | [facility] | | | CHOLESTEROL | | | LABORATORY | | | , | | | SERVICES, | | | CALCULATED | | | CORE | | + +---------+ + + + | VLDL | 9 | <31 mg/dL | [facility] | | | CHOLESTEROL | | | LABORATORY | | | , | | | SERVICES, | | | CALCULATED | | | CORE | | + +---------+ + + + | NON-HDL | 105 | <130 mg/dL | [facility] | | | CHOLESTEROL | | | LABORATORY | | | | | | SERVICES, | | | | | | CORE | | + +---------+ + + + + + | Specimen | + + | Blood - Blood | | (substance) | + + + + + | Narrative | Performed At | + + + | Cholesterol Reference Range: Desirable: <200 | [facility] | | mg/dL Borderline High: 200 - 239 mg/dL | LABORATORY | | High: >=240 mg/dL LDL Cholesterol | SERVICES, CORE | | Reference Range: Optimal: <100 mg/dL | | | Near Optimal: 100-129 mg/dL Borderline High: 130-159 | | | mg/dL High: 160-189 mg/dL | | | Very High: >=190 mg/dL non-HDL Cholesterol Reference Range: | | | Optimal: <130 mg/dL Near Optimal: | | | 130-159 mg/dL Borderline High: 160-189 mg/dL | | | High: 190-209 mg/dL Very High: | | | >=210 mg/dL Triglyceride Reference Range: | | | Normal: <150 mg/dL Borderline High: 150-199 mg/dL | | | High: 200-499 mg/dL Very High: >=500 mg/dL | | | HDL Reference Range: High Risk: <40 mg/dL | | | Desirable: >=60 mg/dL | | + + + + + + + + | Performing | Address | City/State/Zipcode | Phone Number | | Organization | | | | + + + + + | [facility] [address] | [address] | [place] [address] | | | SERVICES, CORE | [address] | | | + + + + + FSH, SERUM (06/17/2016 3:05 PM PST) + +-------+ + + + | Component | Value | Ref Range | Performed | Pathologist | | | | | At | Signature | + +-------+ + + + | FSH,SERUM | 14 | <=18 mIU/mL | [facility] | | | | | | [facility] - | | | | | | [place] | | + +-------+ + + + + + | Specimen | + + | Blood - Blood | | (substance) | + + + + + + + | Performing | Address | City/State/Zipcode | Phone Number | | Organization | | | | + + + + + | [facility] - | [address] | [place] [address] | | | [place] | | | | + + + + + LUTEINIZING HORMONE, SERUM (06/17/2016 3:05 PM PST) + +-------+ + + + | Component | Value | Ref Range | Performed | Pathologist | | | | | At | Signature | + +-------+ + + + | LUTEINIZING | 6 | <=10 mIU/mL | [facility] | | | | | | [facility] - | | | H[facility]ONE,[facility] | | | [place] | | | [facility] | | | | | + +-------+ + + + + + | Specimen | + + | Blood - Blood | | (substance) | + + + + + + + | Performing | Address | City/State/Zipcode | Phone Number | | Organization | | | | + + + + + | [facility] - | [address] | [place] [address] | | | [place] | | | | + + + + + TESTOSTERONE, SERUM (06/17/2016 3:05 PM PST) + + + + + + | Component | Value | Ref Range | Performed | Pathologist | | | | | At | Signature | + + + + + + | TESTOSTERON | 244 (L)Comment: Total | 300 - 890 ng/dL | [facility] | | | E, ADULT | testosterone values may | | REG UNIV | | | MALE | not reflect optimal | | PTH - [facility] | | | | concentrations in all | | | | | | individuals. Free or | | | | | | bioavailable | | | | | | testosterone | | | | | | measurements may provide | | | | | | supportive | | | | | | information.REFERENCE | | | | | | INTERVAL: Testosterone, | | | | | | Adult Male Access | | | | | | complete set of age- | | | | | | and/or gender-specific | | | | | | reference intervals for | | | | | | this test in the [facility] | | | | | | Laboratory Test | | | | | | Directory | | | | | | ([email or web address]).Performed | | | | | | by [facility],[address] | | | | | | [place], [facility] [place] | | | | | | [address] | | | | | | [phone]. | | | | | | [facility], Ben Araiza MD, | | | | | | Lab. Director | | | | + + + + + + + + | Specimen | + + | Blood - Blood | | (substance) | + + + + + + + | Performing | Address | City/State/Zipcode | Phone Number | | Organization | | | | + + + + + | [facility] | [address] | [place], [place] | | | UNIV PTH - INT[facility] | | [address] | | + + + + + TSH (06/17/2016 3:05 PM PST) + +-------+ + + + | Component | Value | Ref Range | Performed | Pathologist | | | | | At | Signature | + +-------+ + + + | TSH | 2.52 | 0.50 - 5.07 | [facility] | | | | | mIU/L | LABORATORY | | | | | | SERVICES, | | | | | | CORE | | + +-------+ + + + + + | Specimen | + + | Blood - Blood | | (substance) | + + + + + | Narrative | Performed At | + + + | TSH reference ranges are influenced by a variety of environmental | [facility] | | influences, age, gender and ethnicity. The supplied reference limits | LABORATORY | | are based on published values utilizing a similar TSH assay, and | SERVICES, CORE | | should be interpreted with caution. | | + + + + + + + + | Performing | Address | City/State/Zipcode | Phone Number | | Organization | | | | + + + + + | [facility] | [address] | [place] [address] | | | SERVICES, CORE | [address] | | | + + + + + VITAMIN D, 25-HYDROXY, SERUM (06/17/2016 3:05 PM PST) + + + + + + | Component | Value | Ref Range | Performed | Pathologist | | | | | At | Signature | + + + + + + | VITAMIN D | 29.1 (L) | 30 - 80 ng/mL | [...] | + + + + + | [facility] | [address] | [place] [address] | | | SERVICES, [facility] | [address] | | | + + + + + RPR SERUM (06/17/2016 3:05 PM PST) + + + + + + | [...] by | | | | | | [facility],[address] | | | | | | [facility],[place] | | | | | | [address] | | | | | | [phone].[email or web address]. | | | | | | Ben barnhart MD, | | | | | | Lab. Director | | | | + + + + + + + + | Specimen | + + | Blood - Blood | | (substance) | + + + + + + + | Performing | Address | City/State/Zipcode | Phone Number | | Organization | | | | + + + + + | [facility] | [address] | [place], [place] | | | UNIV PTH - [facility] | | [address] | | + + + + + HIV QUANTITATIVE PCR, PLASMA (06/17/2016 3:05 PM PST) + + + + + + | Component | Value | Ref Range | Performed | Pathologist | | | | | At | Signature | + + + + + + | HIV | 40,000 (H) | Undetected | [place] | | | QUANTITATIV | | copies/mL [...] Range: 40-10,000,000 HIV-1 copies/mL Positive results | [facility] | | are consistent with active HIV [...] + + + + | [place] | [address] | [place] [address] | | | DIAGNOSTIC | [address] | | | | LABORATORIES | | | | + + + + + COMPLETE METABOLIC SET (NA,K,CL,CO2,BUN,CREAT,GLUC,CA,AST,ALT,BILI TOTAL,ALK PHOS,ALB,PROT TOTAL) (06/17/2016 3:05 PM PST) + +---------+ + + + | Component | Value | Ref Range | Performed | Pathologist | | | | | At | Signature | + +---------+ + + + | GLUCOSE, | 87 | 60 - 99 mg/dL | [facility] | | | PLASMA | | | LABORATORY | | | (LAB) | | | SERVICES, | | | | | | CORE | | + +---------+ + + + | BUN, PLASMA | 16 | 6 - 20 mg/dL | [facility] | | | (LAB) | | | LABORATORY | | | | | | SERVICES, | | | | | | CORE | | + +---------+ + + + | CREATININE | 0.76 | 0.70 - 1.30 | [facility] | | | PLASMA | | mg/dL | LABORATORY | | | (LAB) | | | SERVICES, | | | | | | CORE | | + +---------+ + + + | EGFR | >60 | >60 mL/min | [facility] | | | - | | | LABORATORY | | | MALAGASY | | | SERVICES, | | | [...] +---------+ + + + | POTASSIUM, | 3.5 | 3.4 - 5.0 | [facility] | [...] + + + | TOTAL CO2, | 26 | 21 - 32 mmol/L | [facility] [...] +---------+ + + + | BILIRUBIN | 0.7 | 0.3 - 1.2 mg/dL | [facility] | | | TOTAL | | | LABORATORY | | | | | | SERVICES, | | | | | | CORE | | + +---------+ + + + | TOTAL | 8.2 | 6.4 - 8.2 g/dL | [facility] | | | PROTEIN, | | | LABORATORY | | | PLASMA | | | SERVICES, | | | (LAB) | | | CORE | | + +---------+ + + + | ALBUMIN, | 4.3 | 3.5 - 4.7 g/dL | [facility] | | | PLASMA | | | LABORATORY | | | (LAB) | | | SERVICES, | | | | | | CORE | | + +---------+ + + + | ALK PHOS | 77 | 53 - 128 U/L | [facility] [...] + + + | ANION GAP | 8 | mmol/L | [facility] | | | | | | LABORATORY | | | | | | SERVICES, | | | | | | CORE | | + +---------+ + + + | ANION | 7 | 4 - 11 mmol/L | [facility] [...] the MDRD equation recommended by the | [facility] | | National Kidney Disease Education Program. Estimated GFR | LABORATORY | | Interpretive Information: <60 mL/min/1.73 sq m | [facility], CORE | | Chronic Kidney Disease <15 [...] | + + + + + | [facility] | [address] | [place] [address] | | | ARELIS [address] | [address] | | | + + + + + CD4 (T CELL), BLOOD (06/17/2016 3:05 PM PST) + + + + + + | Component | Value | Ref Range | Performed | Pathologist | | | | | At | Signature | + + + + + + | CD4 % (T | 32.3 (L) | 34.0 - 61.0 % | [facility] | | | HELPER | | | LABORATORY | | | CELLS) | | | SERVICES, | | | | | | SPECIAL IMM | | | | | | + COAG | | + + + + + + | CD4 (T | 372 | 300 - 1,400 /cu | [facility] [...] LABORATORY | | performance characteristics determined by [facility] [employer]. It has | SERVICES, | | not [...] | + + + + + | [facility] | [address] | [place] [address] | | | SERVICES, SPECIAL | [address] | | | | IMM + COAG | | | | + + + + + documented in this encounter Visit Diagnoses + + | Diagnosis | + + | HIV (human immunodeficiency virus infection) (HCC) Asymptomatic human | | immunodeficiency virus (HIV) infection status | + + documented in this encounter"
--- OUTSIDE RECORDS SUMMARY | ~2019-11-25 | XMS | Encounter Summary ---
Demographics + + + | Address | [address] | | | [place] [address] | + + + | Home Phone [...] [place] | | | | | [address] | | + + + + + Care Team Providers + +------+ + | Care Bilingual Middle School Teacher Name | Role | Phone | + +------+ + PCP | Unavailable | + +------+ + Encounter Details +--------+ + + + + | Date | Type | Department | Care Team | Description | +--------+ + + + + | 05/02/ | Hospital | [facility] | Woody Martinez | Special Screening | | 2007 | Encounter | CONVERSION [address] | MD [place] [address] | for Osteoporosis | | | | [address] | [address], | | | | | [place], [place] | [place] [address] | | | | | [address] | [phone] | | | | | [phone] | | | +--------+ + + + [...] [place] | | | | | | [address] | | | | | | | | +--------+---------+ + + + documented as of this encounter Visit Diagnoses + + | Diagnosis | + + | Special screening for osteoporosis | + + documented in this encounter"
--- OUTSIDE RECORDS SUMMARY | ~2019-11-25 | XMS | Encounter Summary ---
Demographics + + + | Address | [address] | | | [place] [address] | + + + | Home Phone | | + + + | Preferred Language | Unknown | + + + | Marital Status | Unmarried Domestic Partner | + + + | Muslim Affiliation | NON | + + + | Race | White | + + + | Ethnic Group | Not or | + + + Author + + + | Author | [facility] | + + + | Organization | [facility] | + + + [...] [place] | | | | | [address] | | + + + + + Care Team Providers + +------+ + | Care Business Solutions Analyst Name | Role | Phone | + [...] + + | 08/03/ | Refill | [facility] Primary Care | Fred, | Refill Request | | 2017 | | at [facility] | MD [address]io | | | | | [address] | [address] | | | | | Loop Physician's | [address] [facility] | | | | | Pavilion, 3rd floor | [place] [address] | | | | | [place], [place] | [phone] | | | | | [address] | | | | | | [phone] | | | +--------+--------+ + + + [...]
--- OUTSIDE RECORDS SUMMARY | ~2019-11-25 | XMS | Encounter Summary ---
Demographics + + + | Address | [address] | | | [place] [address] | + + + | Home Phone | | + + + | Preferred Language | Unknown | + + + | Marital Status | Unmarried Domestic Partner | + + + | Church Affiliation | NON | + + + | Race | White | + + + | Ethnic Group | Not or | + + + Author + + + | Author | [facility] | + + + | [...] [place] | | | | | [address] | | + + + + + Care Team Providers + +------+ + | Care Employment Advisor Name | Role | Phone | [...] + + | 03/29/ | Refill | [facility] Primary Care | Fred, | Refill Request | | 2017 | | at [facility] | MD [place]io | | | | | [address] | [address] | | | | | Loop Physician's | [address] [facility], | | | | | Pavilion, 3rd floor | [place] [address] | | | | | [place], [place] | [phone] | | | | | [address] | | | | | | [phone] | | | +--------+--------+ + + + [...]
--- OUTSIDE RECORDS SUMMARY | ~2019-11-25 | XMS | Encounter Summary ---
Demographics + + + | Address | [address] | | | [place] [address] | + + + | Home Phone | | + + + | Preferred Language | Unknown | + + + | Marital Status | | + + + | Hoahaoism Affiliation | 1013 | + + + | Race | Unknown | + + + | Ethnic Group | Unknown | + + + Author + + + | Author | [facility] | | | and [place] | + + + | Organization | [facility] | | [...] [place] | | | | | [address] | | + + + + + Care Team Providers + +------+ + | Care Beef Trimmer Name | Role | Phone | + +------+ + | Jax Cabrera MD | PCP | | + +------+ + Reason for Visit + +--------+ + | Reason | Onset | Comments | | | Date | | + +--------+ + | Follow-up | 08/23/ | | | | 2020 | | + +--------+ + Encounter Details +--------+ + + + + | Date | Type | Department | Care Team | Description | +--------+ + + + + | 08/23/ | Telephone | [facility] | Deyvi Kovacs, | Follow-up | | 2019 | | [facility] | GO[facility] DR[address] | | | | | [address] | | | | | [address] | [place] [address] | | | | | [place], [place] | [phone] | | | | | [address] | | | | | | [phone] | | | +--------+ + + + [...] Miscellaneous Notes Telephone Encounter - Thelma Subramanian, Rn Enterostomal - 08/24/2019 1:59 PM PDTSpoke sabrina Huerta and told him to check with his PCP in regards to any pain medication needed. Deyvi is not able to pull RETURNER from [place] and feels it would be best to ask PCP to manage medicat ions until we are to start scheduling injections again. Patient agrees. Electronically sign ed by Thelma Subramanian, Rn Enterostomal at 08/24/2019 2:00 PM PDTTelephone Encounter - Thelma Quispe, Rn Enterostomal - 08/24/2019 1:59 PM PDTI cannot pull his RETURNER because he l randall in [place]. I think it would be best if he reaches out to his PCP since he takes so ma ny medications. Thanks! A el ephone Encounter - Thelma Subramanian, Rn Enterostomal - 08/24/2019 7:52 AM PDTPatient call ed in wanting to know about getting scheduled for an injection since his last injection did not work well. I told him that we are not booking injections at this time due to COVID19- He then asked if there was any way Deyvi could write a RX for Hydrocodone to hold him over until he is able to get another injection with Dr Dong. I told him I would send this mes berkley to Deyvi and will call him later. documented in this encounter Plan of Treatment +--------+---------+ + + + | Date | Type | Specialty | Care Team | Description | +--------+---------+ + + + | 12/05/ | Office | Pain Medicine | Vitaliy Mendoza, | | | 2019 | Visit | | DO [address] | | | | | | [place] | | | | | | [address] | | | | | | | | +--------+---------+ + + + documented as of this encounter Visit Diagnoses Not on filedocumented in this encounter"
--- OUTSIDE RECORDS SUMMARY | ~2019-11-25 | XMS | Encounter Summary ---
Demographics + + + | Address | [address] | | | [place] [address] | + + + | Home Phone [...] + + | Author | [facility] | + + + | Organization [...] [place] | | | | | [address] | | + + + + + Care Team Providers + +------+ + | Care Practice Or Student Teacher Name | Role | Phone | + +------+ + | Jax Cabrera MD | PCP | | + +------+ + Reason for Visit + + + | Reason | Comments | + + + | Prior Authorization | [employer] | | Request - Medication | | + + + Encounter Details +--------+ + + + + | Date | Type | Department | Care Team | Description | +--------+ + + + + | 06/29/ | Documentati | [facility] Primary Care | Fred | Prior Authorization | | 2017 | on | at [facility] | MD Caio | Request - Medication | | | | [address] | [address] | ([employer] APPROVED) | | | | Loop Physician's | [place], | | | | | [place], [address] [place] [address] | [place] [address] | | | | | [place], [place] | [phone] | | | | | [address] | | | | | | [phone] | | | +--------+ + + + [...]
--- OUTSIDE RECORDS SUMMARY | ~2019-11-25 | XMS | Encounter Summary ---
Demographics + + + | Address | [address] | | | [place] [address] | + + + | Home Phone [...] + + + | Author | [facility] | + + + [...] [place] | | | | | [address] | | + + + + + Care Team Providers + +------+ + | Care Ferryboat Pilot Name | Role | Phone | + +------+ + | Jax Cabrera MD | PCP | | + +------+ + Reason for Visit + + + | Reason | Comments | + + + | Medical Records | | | Review | | + + + Encounter Details +--------+ + + + + | Date | Type | Department | Care Team | Description | +--------+ + + + + | 10/27/ | Documentati | Endoscopic | Lab, Gi Procedure | Medical Records | | 2017 | on | Procedural Unit at | | Review | | | | [facility] [address] | | | | | [address] | | | | | | [place], | | | | | | 4th floor [place], | | | | | | [place] [address] | | | | | | [phone] | | | +--------+ + + + [...]
--- OUTSIDE RECORDS SUMMARY | ~2019-11-25 | XMS | Encounter Summary ---
Demographics + + + | Address | [address] | | | [place] [address] | + + + | Home Phone | | + + + | Preferred Language | Unknown | + + + | Marital Status | | + + + | Buddhism Affiliation | 1013 | + + + | Race | Unknown | + + + | Ethnic Group | Unknown | + + + Author + + + | Author | [facility] | | | and [place] | + + + | Organization | [facility] | | [...] [place] | | | | | [address] | | + + + + + Care Team Providers + +------+ + | Care E D Tech Name | Role | Phone | + +------+ + | No, Unknownpcp | PCP | | + +------+ + Encounter Details +--------+ + + + + | Date | Type | Department | Care Team | Description | +--------+ + + + + | 02/09/ | Hospital | [facility] | Conversion | Lumbar degenerative | | 2014 | Encounter | [facility] | Transaction, | disc disease; Lumbar | | | | [address] | Provider Unknown | radicular pain | | | | [place], [place] | | | | | | [address] | (Fax) | | | | | [phone] | | | +--------+ + + + [...] [place] | | | | | | [address] | | | | | | | | +--------+---------+ + + + documented as of this encounter Procedures + +--------+ + + + | Procedure Name | Priori | Date/Time | Associated Diagnosis | Comments | | | ty | | | | + +--------+ + + + | MRI LUMBAR SPINE WO | Routin | 02/09/2014 | | Results for this | | CONTRAST | e | 10:49 AM | | procedure are in the | | | | PDT | | results section. | + +--------+ + + + documented in this encounter Results MRI Lumbar Spine wo Contrast (02/09/2014 10:49 AM PDT) + + | Specimen | + + | | + + + + + | Impressions | Performed At | + + + | 1. Small left intraforaminal and far lateral disc protrusion at | | | L4/5, could be mildly affecting the left L4 nerve root, but is | | | unchanged from the prior study. 2. Small central disc protrusion at | | | L5/S1, with a low likelihood nerve root impingement, also unchanged. | | | Could be a source of back pain. 3. Mild degenerative disc disease | | | at L4/5 and L5/S1. | | + + + + + + | Narrative | Performed At | + + + | [facility] LUMBAR SPINE WO CONTRAST 02/09/2014 10:49 AM | | | HISTORY: Low back pain that radiates down both legs. TECHNIQUE: | | | Multiplanar MR imaging was performed to the lumbar spine without | | | gadolinium. FINDINGS: Compared with 03/13/12. Alignment | | | appears intact. Again demonstrated is disc desiccation at L4/5 and | | | L5/S1, consistent with early degenerative disc disease. Disc heights | | | are well-maintained. The conus medullaris is normal in position. | | | L1/2: Negative. L2/3: Negative. L3/4: Negative. L4/5: | | | Again demonstrated is a small left intraforaminal and far lateral | | | extraforaminal disc protrusion appears to contact the exiting left L4 | | | nerve root and could be causing mild impingement. This appears | | | unchanged. There is a minor disc bulge, as before. L5/S1: There | | | is a small broad-based central disc protrusion that measures | | | approximately 3.9 mm in thickness. This appears unchanged from the | | | prior examination. This mildly indents the ventral thecal sac. The | | | likelihood of nerve impingement is felt to be low in view of its | | | small size and location. | | + + + + + | Procedure Note | + + | El Reyes - 12/30/2018 8:00 PM [facility] LUMBAR SPINE WO | | CONTRAST02/09/2014 10:49 AM HISTORY:Low back pain that radiates down both legs. | | TECHNIQUE:Multiplanar MR imaging was performed to the lumbar spine without gadolinium. | | FINDINGS:Compared with 03/13/12. Alignment appears intact. Again demonstrated is disc | | desiccation at L4/5 and L5/S1, consistent with early degenerative disc disease. Disc | | heights are well-maintained. The conus medullaris is normal in position. L1/2: Negative. | | L2/3: Negative. L3/4: Negative. L4/5: Again demonstrated is a small left intraforaminal | | and far lateral extraforaminal disc protrusion appears to contact the exiting left L4 | | nerve root and could be causing mild impingement. This appears unchanged. There is a | | minor disc bulge, as before. L5/S1: There is a small broad-based central disc protrusion | | that measures approximately 3.9 mm in thickness. This appears unchanged from the prior | | examination. This mildly indents the ventral thecal sac. The likelihood of nerve | | impingement is felt to be low in view of its small size and location. IMPRESSION: 1. | | Small left intraforaminal and far lateral disc protrusion at L4/5, could be mildly | | affecting the left L4 nerve root, but is unchanged from the prior study.2. Small | | central disc protrusion at L5/S1, with a low likelihood nerve root impingement, also | | unchanged. Could be a source of back pain.3. Mild degenerative disc disease at L4/5 and | | L5/S1. | | | |L3/4: Negative. | | | |L4/5: Again demonstrated is a small left intraforaminal and far lateral extraforaminal disc protrusion appears to contact the exiting left L4 nerve root and could be causing mild impi ngement. This appears unchanged. There is a minor disc bulge, as | |before. | | | |L5/S1: There is a small broad-based central disc protrusion that measures approximately 3.9 mm in thickness. This appears unchanged from the prior examination. This mildly indents the ventral thecal sac. The likelihood of | |nerve impingement is felt to be | |low in view of its small size and location. | | | |IMPRESSION: | |1. Small left intraforaminal and far lateral disc protrusion at L4/5, could be mildly affe cting the left L4 nerve root, but is unchanged from the prior study. | |2. Small central disc protrusion at L5/S1, with a low likelihood nerve root impingement, a lso unchanged. Could be a source of back pain. | |3. Mild degenerative disc disease at L4/5 and L5/S1. | | | | | + + documented in this encounter Visit Diagnoses + + | Diagnosis | + + | Lumbar degenerative disc disease Degeneration of lumbar or lumbosacral intervertebral | | disc | + + | Lumbar radicular pain Thoracic or lumbosacral neuritis or radiculitis, unspecified | + + documented in this encounter"
--- OUTSIDE RECORDS SUMMARY | ~2019-11-25 | XMS | Encounter Summary ---
Demographics + + + | Address | [address] | | | [place] [address] | + + + | Home Phone | | + + + | Preferred Language | Unknown | + + + | Marital Status | Unmarried Domestic Partner | + + + | Anabaptist Affiliation | NON | + + + | Race | White | + + + | Ethnic Group | Not or | + + + Author + + + | Author | [facility] [facility] | + + + | Organization | [facility] | + + + | Address | Unknown | + + + | Phone | Unavailable | + + + Support + + + + + | Name | Relationship | Address | Phone | + + + + + | Gabriel Greenberg | ECON | [address] | | | | | [place] | | | | | [address] | | + + + + + Care Team Providers + +------+ + | Care Industrial Engineering Technologist Name | Role | Phone | + [...] Description | +--------+--------+ + + + | 03/27/ | Refill | [facility] | Fred, | Refill Request | | 2016 | | at [facility] | MD Caio | | | | | [address] | [address] | | | | | Loop Physician's | [place], | | | | | [place], [address] floor | [place] [address] | | | | | [place], [place] | [phone] | | | | | [address] | | | | | | [phone] | | | +--------+--------+ + + + [...]
--- OUTSIDE RECORDS SUMMARY | ~2019-11-25 | XMS | Encounter Summary ---
Demographics + + + | Address | [address] | | | [place] [address] | + + + | Home Phone | | + + + | Preferred Language | Unknown | + + + | Marital Status | Unmarried Domestic Partner | + + + | Moravian Affiliation | NON | + + + | Race | White | + + + | Ethnic Group | Not or | + + + Author + + + | Author | [facility] [employer] [facility] | + + + | Organization | [facility] | + + + | Address | Unknown | + + + | Phone | Unavailable | + + + Support + + + + + | Name | Relationship | Address | Phone | + + + + + | Gabriel Greenberg | ECON | [address] | | | | | [place] | | | | | [address] | | + + + + + Care Team Providers + +------+ + | Care Staff Air Defense Officer Name | Role | Phone | + +------+ + | Jax Cabrera MD | PCP | | + +------+ + Reason for Visit + + + | Reason | Comments | + + + | Medication requested | | + + + Encounter Details +--------+ + + + + | Date | Type | Department | Care Team | Description | +--------+ + + + + | 04/14/ | Telephone | [facility] Primary Care | Ibarra, | Medication requested | | 2015 | | at [facility] | MD Caio | | | | | [address] | [address] | | | | | Loop Physician[address] | [address] [facility], | | | | | Pavilion, 3rd floor | [place] [address] | | | | | [place], [place] | [phone] | | | | | [address] | | | | | | [phone] | | | +--------+ + + + [...]
--- OUTSIDE RECORDS SUMMARY | ~2019-11-25 | XMS | Encounter Summary ---
Demographics + + + | Address | [address] | | | [place] [address] | + + + | Home Phone [...] [place] | | | | | [address] | | + + + + + Care Team Providers + +------+ + | Care Field Representative/Health Education Name | Role | Phone | + +------+ + PCP | Unavailable | + +------+ + Encounter Details +--------+ + + + + | Date | Type | Department | Care Team | Description | +--------+ + + + + | 09/04/ | Emergency | [facility] | Bobby Wilson | | | 2001 | | [facility] MD Yana [address] | | | | | [facility] | [place], [place] | | | | | [address] | [address] | | | | | [place], [place] | [phone] [place], | | | | | [address] | Bg Ward MD | | | | | [phone] | [address] [place] [address] | | | | | | [place] [facility] [place] | | | | | | [address] | | | | | | | [...] [place] | | | | | | [address] | | | | | | | | +--------+---------+ + + + documented as of this encounter Visit Diagnoses Not on filedocumented in this encounter"
--- OUTSIDE RECORDS SUMMARY | ~2019-11-25 | XMS | Encounter Summary ---
Demographics + + + | Address | [address] | | | [place] [address] | + + + | Home Phone | | + + + | Preferred Language | Unknown | + + + | Marital Status | | + + + | Latter-Day Affiliation | 1013 | + + + | Race | Unknown | + + + | Ethnic Group | Unknown | + + + Author + + + | Author | [facility] | | | and [place] | + + + | Organization | [facility] | | [...] [place] | | | | | [address] | | + + + + + Care Team Providers + +------+ + | Care Tools Developer Name | Role | Phone | + +------+ + | Jax Cabrera MD | PCP | | + +------+ + Reason for Visit + + + | Reason | Comments | + + + | Chest Pain | | + + + Auth/Cert +--------+--------+ + + + + | [...] + + + + | 04/15/ | Emergency | [facility] | Gustavo, | Chest pain, | | 2016 | | [facility] | Bobby Silvestre MD [address] | unspecified (Primary | | | | CENTER [address] | [address] | Dx); Pleurisy | | | | [place] | [place] [address] | | | | | [address] | [phone] | | | | | [phone] | | | +--------+ + + + [...] + + + | Blood Pressure | 163/109 | 04/15/2016 2:14 PM | | | | | PST | | + + + + + | Pulse | 65 | 04/15/2016 2:14 PM | | | | | PST | | + + + + + | Temperature | 36.5 C (97.7 F) | 04/15/2016 1:04 PM | | | | | PST | | + + + + + | Respiratory Rate | 13 | 04/15/2016 2:14 PM | | | | | PST | | + + + + + | Oxygen Saturation | 99% | 04/15/2016 2:14 PM | | | | | PST | | + + + + + | Inhaled Oxygen | - | - | | | Concentration | | | | + + + + + | Weight | 73 kg (161 lb) | 04/15/2016 1:04 PM | | | | | PST | | + + + + + | Height | 167.6 cm (5' 6") | 04/15/2016 1:04 PM | | | | | PST | | + + + + + | Body Mass Index | 25.99 | 04/15/2016 1:04 PM | | | | | PST | | + + + + + documented in this encounter Discharge Instructions Bobby Flannery MD - 04/15/2016Follow up today with Dr. Medina Return for worsening symptoms or any other concerns documented in this encounter Medications at Time [...] documented as of this encounter ED Notes Asya Arguello RN - 04/15/2016 2:29 PM PSTDischarged in stable and improved condition . Instructed to return to Cardiology for consult with Dr Medina. Bobby Bates MD - 04/15/2016 2:15 P M PST [facility] Giles Emergency Department Encounter Note [address] [place] [address] PCP:Jax Cabrera MD [phone] CHIEF COMPLAINT: Chief Complaint Patient presents with Chest Pain ED Room: ED05/ED05 HPI Ivan Giles is a 50 y.o. male who presents to the Emergency Department from the cardiology clinic for evaluation. He was here getting an echocardiogram and had some achy chest pain and so they sent him down for further evaluation. This patient states the pains are going o n for about 30 minutes prior to his arrival at the hospital. It is a sharp central nonradia ting pleuritic chest pain with mild dyspnea. No diaphoresis or nausea. No injury or trauma . No syncope or near syncope. No other complaints at this time. PAST MEDICAL & SURGICAL HISTORY Past Medical History Diagnosis Date HIV (human immunodeficiency virus infection) ([facility]) 04/14/2016 Congenital heart disease 04/14/2016 Past Surgical History Procedure Laterality Date Hiatal hernia repair Cholecystectomy Elbow surgery Right x2 Tonsillectomy CURRENT MEDICATIONS Discharge Medication List as of 04/15/2016 14:30 CONTINUE these medications which have NOT CHANGED Details albuterol-ipratropium (COMBIVENT) 103-18 mcg/puff inhaler Inhale 2 puffs into the lungs kerry ry 6 hours as needed for Wheezing.Historical Med Dexlansoprazole (DEXILANT) 60 MG CPDR Take 60 mg by mouth Daily. divalproex (DEPAKOTE) 250 mg EC tablet Take 250 mg by mouth Daily. DULoxetine (CYMBALTA) 30 mg capsule Take 30 mg by mouth Daily. Emtricitabine-Tenofovir (TRUVADA PO) TABS: one tablet daily loratadine (GNP LORATADINE) 10 mg tablet Take 10 mg by mouth Daily. ondansetron (ZOFRAN) 4 mg tablet Take 4 mg by mouth every 8 hours as needed. oxyCODONE (OXYCONTIN) 10 mg ER abuse-deterrent tablet Take 10 mg by mouth as needed for Talia n.Historical Med pregabalin (LYRICA) 150 MG capsule Take 150 mg by mouth Daily. salmeterol (SEREVENT DISKUS) 50 mcg/puff diskus inhaler Inhale 1 puff into the lungs as nee ded.Historical Med SUMAtriptan (IMITREX) 100 mg tablet Take 100 mg by mouth as needed. telmisartan (MICARDIS) 80 MG tablet Take 80 mg by mouth Daily.Historical Med traZODone (DESYREL) 100 mg tablet Take 100 mg by mouth nightly. ALLERGIES Allergies Allergen Reactions Phenytoin Diarrhea FAMILY AND SOCIAL HISTORY Family History Problem Relation Age of Onset Alcohol abuse Mother Cancer Father Social History Social History Marital Status: Spouse Name: N/A Number of Children: N/A Years of Education: N/A Social History Main Topics Smoking status: Never Smoker Smokeless tobacco: Never Used Alcohol Use: No Drug Use: No Comment: Quit 01/24/93 Sexual Activity: Not on file Other Topics Concern Not on file Social History Narrative Exercise: walking; biking Caffeine: Living situation: REVIEW OF SYSTEMS As in history of present illness. A 10 system review was otherwise negative. PHYSICAL EXAM VITAL SIGNS: (first vital signs):Temp: 36.5 C (97.7 F) Pulse: 75 Resp: 18 SpO2: 100 % B P: (!) 164/92 mmHg Body mass index is 26 kg/(m^2). Constitutional: Moderately uncomfortable male patient. HEENT: Atraumatic, PERRL, Oropharynx benign. Neck: Supple with full range of motion. No JVD and no lymphadenopathy Respiratory: Good air movement bilaterally. No wheezes, No, rales. Cardiovascular: Normal S1 S2, 2/6 systolic murmur Abdomen: Soft, nontender., No rebound, guarding, or masses. and No pulsatile masses. Back: Within normal limits Extremities: Nontender. No lower extremity edema, no calf asymmetry. Present distal pulse s. Skin: Warm, Dry, No rashes Neurologic: Alert & oriented. No focal deficits., Gait and speech are normal Psychiatric: Normal mood, affect and judgement. EKG 12-lead EKG shows sinus rhythm at a rate of [address] segment changes. LABS Results for orders placed or performed during the hospital encounter of 04/15/16 CBC with Differential Result Value Ref Range WBC 3.5 (L) 4.0-11.0 K/uL RBC 5.03 4.30-5.70 M/uL Hgb 14.3 13.5-18.0 g/dL Hct 41.5 40.0-51.0 % MCV 82.4 (L) 83.0-101.0 fL MCH 28.4 28.0-35.0 pg MCHC 34.4 32.0-36.0 g/dL RDW-CV 13.7 <15.0 % Platelet Count 155 140-440 K/uL MPV 8.3 fL % Neutrophils 34.1 (L) 45.0-82.0 % % Lymphocytes 47.2 (H) 20.0-45.0 % % Monocytes 16.5 (H) 4.0-12.0 % % Eosinophils 2.0 0.0-5.0 % % Basophils 0.2 0.0-1.0 % Absolute Neutrophils 1.20 (L) 1.80-8.50 K/uL Absolute Lymphocytes 1.60 0.60-3.20 K/uL Absolute Monocytes 0.60 0.00-1.00 K/uL Absolute Eosinophils 0.10 0.00-0.40 K/uL Absolute Basophils 0.00 0.00-0.10 K/uL Comprehensive Metabolic Panel Result Value Ref Range NA 136 136-149 mmol/L K 3.6 3.5-5.1 mmol/L CL 104 98-109 mmol/L CO2 23 (L) 24-31 mmol/L ANION GAP 9 3-16 mmol/L GLUCOSE 101 70-109 mg/dL BUN 13 7-18 mg/dL Creatinine, Serum/Plasma 0.85 0.60-1.30 mg/dL eGFR if not >60 >=60 mL/min/1.73m2 CALCIUM 9.5 8.3-10.5 mg/dL ALBUMIN 4.2 3.2-5.0 g/dL BILIRUBIN TOTAL 0.8 0.1-1.5 mg/dL Total protein 7.4 6.0-7.8 g/dL AST 23 10-42 U/L ALT 16 6-45 U/L ALK PHOS 70 40-110 U/L GLOBULIN 3.2 2.1-3.8 g/dL Albumin/Globulin ratio 1.3 0.8-2.0 BUN/CREA 15.3 Troponin I Result Value Ref Range Troponin I 0.01 <0.06 ng/mL D-Dimer Result Value Ref Range D-DIMER, QUANTITATIVE <0.27 <=0.50 ug/ml IMAGING STUIDES (X-Rays interpreted by ED Physician) Chest x-ray shows no cardiomegaly, infiltrates, or effusion ED COURSE & MEDICAL DECISION MAKING Pertinent Labs & Imaging studies were reviewed along with EMS notes and intermediate record s if applicable. (See chart for details) Medications and Allergy list reviewed. Nurses note and old records were reviewed The patient was seen and examined, IV was started, labs were sent, EKG and chest x-ray obta ined. The patient received some IV Toradol with improvement in symptoms. His EKG was reass uring labs came back unremarkable including undetectable troponin and d-dimer. At this poin t I doubt the patient's pain is cardiac in nature. Pulmonary embolism is also unlikely give n his negative d-dimer and normal vital signs including oxygen saturation. Although he does have a cardiac murmur, this is known by cardiology and is being followed, hence the echocar diogram today. I think the most likely explanation for his pain at this point is pleurisy. Vital signs are stable and the patient was able to be discharged to go directly back up to the cardiology clinic to finish his consultation and echocardiogram. Last Set of Vital Signs: Temp: 36.5 C (97.7 F) Pulse: 65 Resp: 13 SpO2: 99 % BP: (!) 16 3/109 mmHg FINAL IMPRESSION ICD-10-CM ICD-9-CM 1. Chest pain, unspecified R07.9 786.50 2. Pleurisy R09.1 511.0 Follow-up Information Follow up with Jax Cabrera MD. Specialty: Family Medicine Contact information: [address] [facility] [address] Follow up with Owen Medina MD. Specialty: Cardiology Contact information: [address] [facility] [id number] Discharge Medication List as of 04/15/2016 14:30 Administrations This Visit aspirin tablet 325 mg Admin Date Action Dose Route Administered By 04/15/2016 Given 325 mg Oral Asya Arguello RN ketorolac (TORADOL) injection 30 mg Admin Date Action Dose Route Administered By 04/15/2016 Given 30 mg Intravenous JAZ Rogers MD 04/15/16 1448 do cumented in this encounter Miscellaneous Notes ED Triage Notes - Asya Arguello RN - 04/15/2016 1:01 PM PST30 minutes of sharp left side chest pressure that radiated into left shoulder. Patient rates intensity at 8/10. Denie s dyspnea, diaphoresis or dyspepsia. States pain increases with deep inspiration.Electronica lly signed by Asya Arguello RN at 04/15/2016 1:06 PM PSTdocumented in this encounter Plan of Treatment +--------+---------+ + + + | Date | Type | Specialty | Care Team | Description | +--------+---------+ + + + | 12/05/ | Office | Pain Medicine | Vitaliy Mendoza, | | | 2020 | Visit | | DO [address] | | | | | | [place] | | | | | | [address] | | | | | | | | +--------+---------+ + + + + +------+--------+ + + | Name | Type | Priori | Associated Diagnoses | Date/Time | | | | ty | | | + +------+--------+ + + | ED INFORMATION | MAIKEL | Routin | | 04/15/2016 12:58 PM | | EXCHANGE | | e | | PST | + +------+--------+ + + documented as of this encounter Procedures + +--------+ + + + | Procedure Name | Priori | Date/Time | Associated Diagnosis | Comments | | | ty | | | | + +--------+ + + + | XR CHEST AP PORTABLE | STAT | 04/15/2016 | | Results for this | | | | 1:34 PM | | procedure are in the | | | | PST | | results section. | + +--------+ + + + | TROPONIN I | STAT | 04/15/2016 | | Results for this | | | | 1:15 PM | | procedure are in the | | | | PST | | results section. | + +--------+ + + + | D-DIMER | STAT | 04/15/2016 | | Results for this | | | | 1:15 PM | | procedure are in the | | | | PST | | results section. | + +--------+ + + + | CBC WITH | STAT | 04/15/2016 | | Results for this | | DIFFERENTIAL | | 1:15 PM | | procedure are in the | | | | PST | | results section. | + +--------+ + + + | COMPREHENSIVE | STAT | 04/15/2016 | | Results for this | | METABOLIC PANEL | | 1:15 PM | | procedure are in the | | | | PST | | results section. | + +--------+ + + + | ECG 12 LEAD | STAT | 04/15/2016 | | Results for this | | | | 1:00 PM | | procedure are in the | | | | PST | | results section. | + +--------+ + + + | ED INFORMATION | Routin | 04/15/2016 | | | | EXCHANGE | e | 12:58 PM | | | | | | PST | | | + +--------+ + + + documented in this encounter Results XR Chest AP Portable (04/15/2016 1:34 PM PST) + + | Specimen | + + | | + + + + + | Narrative | Performed At | + + + | EXAM: XR CHEST AP PORTABLE dated 04/15/2016 1:34 PM HISTORY: | [facility] | | CHEST PAIN Comparison: May 08, 2011 TECHNIQUE: A single | | | portable view of the chest. FINDINGS: The lungs are | | | symmetrically aerated. They are clear. There are no large pleural | | | effusions. There is no pneumothorax. The cardiac and mediastinal | | | contours are not enlarged. No acute osseous abnormalities. | | | IMPRESSION - No acute disease. Dictated and Signed by: Ayan | | | Ajit Hernández MD Electronically signed: 04/15/2016 1:36 PM | | + + + + + | Procedure Note | + + | Eric, Rad Results In - 04/15/2016 1:39 PM PST EXAM: XR CHEST AP PORTABLE dated | | 04/15/2016 1:34 PMHISTORY: CHEST PAINComparison: May 08, 2011TECHNIQUE: A single | | portable view of the chest.FINDINGS:The lungs are symmetrically aerated. They are | | clear. There are no largepleural effusions. There is no pneumothorax. The cardiac and | | mediastinalcontours are not enlarged. No acute osseous abnormalities. IMPRESSION -No | | acute disease. Dictated and Signed by: Ayan Hernández MD Electronically signed: | | 04/15/2016 1:36 PM | | | |FINDINGS: | | | |The lungs are symmetrically aerated. They are clear. There are no large | |pleural effusions. There is no pneumothorax. The cardiac and mediastinal | |contours are not enlarged. No acute osseous abnormalities. | | | |IMPRESSION - | | | |No acute disease. | | | |Dictated and Signed by: Ayan Hernández MD | | Electronically signed: 04/15/2016 1:36 PM | + + + +---------+ + + | Performing | Address | City/State/Zipcode | Phone Number | | Organization | | | | + +---------+ + + | [facility] | | | | + +---------+ + + D-Dimer (04/15/2016 1:15 PM PST) + + + + + + | Component | Value | Ref Range | Performed | Pathologist | | | | | At | Signature | + + + + + + | D-Dimer | <0.27Comment: This | <=0.50 ug/ml | [facility] | | | Quantitativ | quantitative D-Dimer | | [facility] | | | e | assay has been evaluated | | MEDICAL | | | | for screening for | | CENTER - | | | | venous thrombotic | | LABORATORY | | | | disease, and may be | | | | | | useful in ruling out, | | | | | | but not ruling in | | | | | | disease. Values less | | | | | | than 0.50 ug/mL FEU | | | | | | (Fibrinogen Equivalent | | | | | | Units) have a negative | | | | | | predictive value of | | | | | | approximately 95% for | | | | | | ruling out large | | | | | | pulmonary emboli or | | | | | | proximal deep vein | | | | | | thrombosis. Distal DVT | | | | | | are not excluded. An | | | | | | elevated D-dimer can be | | | | | | present in patients with | | | | | | liver disease, | | | | | | , eclampsia, | | | | | | heart disease and some | | | | | | cancers among other | | | | | | conditions. The presence | | | | | | of rheumatoid factor at | | | | | | a level >50 IU/mL may | | | | | | falsely elevate the | | | | | | determined D-dimer | | | | | | levels. | | | | + + + + + + + + | Specimen | + + | Blood | + + + + + + + | Performing | Address | City/State/Zipcode | Phone Number | | Organization | | | | + + + + + | [facility] | [address] | [place] | [phone] | | [facility] | | [address] | | | - LABORATORY | | | | + + + + + Troponin I (04/15/2016 1:15 PM PST) + + + + + + | Component | Value | Ref Range | Performed | Pathologist | | | | | At | Signature | + + + + + + | Troponin I | 0.01Comment: Reference | <0.06 ng/mL | [facility] | | | | Ranges:0.00-0.06 = | | [facility] | | | | NORMAL>0.06 = | | MEDICAL | | | | SUSPICIOUS FOR | | CENTER - | | | | MYOCARDIAL DAMAGE NOTE: | | LABORATORY | | | | Values greater than 0.50 | | | | | | ng/mL have been shown | | | | | | to be strongly | | | | | | associated with acute | | | | | | myocardial infarction. | | | | | | The [employer] | | | | | | Cardiology (ACC) | | | | | | recommends a decision | | | | | | limit of 0.06 ng/mL for | | | | | | this assay. Results | | | | | | greater than 0.06 can | | | | | | reflect a pre-infarct | | | | | | acute coronary syndrome, | | | | | | but can also reflect | | | | | | myocardial necrosis or | | | | | | injury that is not due | | | | | | to coronary artery | | | | | | disease. Some of these | | | | | | causes are sepsis, | | | | | | hypocolemia, atrial | | | | | | fibrillation, heart | | | | | | failure, pulmonary | | | | | | embolism, myocarditis, | | | | | | myocardial contusion, | | | | | | and renal failure. The | | | | | | diagnosis of myocardial | | | | | | infarction should be | | | | | | based on a combination | | | | | | of the patient's | | | | | | clinical presentation | | | | | | and the clinical | | | | | | laboratory test results | | | | | | (especially serial | | | | | | troponin levels). | | | | + + + + + + + + | Specimen | + + | Blood | + + + + + + + | Performing | Address | City/State/Zipcode | Phone Number | | Organization | | | | + + + + + | [facility] | [address] | [place] | [phone] | | [facility] | | [address] | | | - LABORATORY | | | | + + + + + Comprehensive Metabolic Panel (04/15/2016 1:15 PM PST) + + + + + + | Component | Value | Ref Range | Performed | Pathologist | | | | | At | Signature | + + + + + + | Na | 136 | 136 - 149 | [facility] | | | | | mmol/L | [facility] | | | | | | MEDICAL | | | | | | CENTER - | | | | | | LABORATORY | | + + + + + + | K | 3.6 | 3.5 - 5.1 | [facility] | | | | | mmol/L | [facility] | | | | | | MEDICAL | | | | | | CENTER - | | | | | | LABORATORY | | + + + + + + | Cl | 104 | 98 - 109 mmol/L | [facility] | | | | | | [facility] | | | | | | MEDICAL | | | | | | CENTER - | | | | | | LABORATORY | | + + + + + + | CO2 | 23 (L) | 24 - 31 mmol/L | [facility] | | | | | | [facility] | | | | | | MEDICAL | | | | | | CENTER - | | | | | | LABORATORY | | + + + + + + | Anion Gap | 9 | 3 - 16 mmol/L | [facility] | | | | | | [facility] | | | | | | MEDICAL | | | | | | CENTER - | | | | | | LABORATORY | | + + + + + + | Glucose | 101 | 70 - 109 mg/dL | [facility] | | | | | | [facility] | | | | | | MEDICAL | | | | | | CENTER - | | | | | | LABORATORY | | + + + + + + | BUN | 13 | 7 - 18 mg/dL | [facility] | | | | | | [facility] | | | | | | MEDICAL | | | | | | CENTER - | | | | | | LABORATORY | | + + + + + + | Creatinine | 0.85 | 0.60 - 1.30 | [facility] | | | | | mg/dL | [facility] | | | | | | MEDICAL | | | | | | CENTER - | | | | | | LABORATORY | | + + + + + + | eGFR if not | >60Comment: GLOMERULAR | >=60 | [facility] | | | | FILTRATION | mL/min/1.73m2 | [facility] | | | [place] | RATE,ESTIMATED | | MEDICAL | | | | mL/min/1.96s4Xvyf than | | CENTER - | | | | 60 Chronic kidney | | LABORATORY | | | | disease,if found over a | | | | | | 3-month period.Less than | | | | | | 15 Kidney failureFor | | | | | | | | | | | | Americans,multiply the | | | | | | calculated GFR by 1.21. | | | | | | | | | | + + + + + + | Calcium | 9.5 | 8.3 - 10.5 | [facility] | | | | | mg/dL | [facility] | | | | | | MEDICAL | | | | | | CENTER - | | | | | | LABORATORY | | + + + + + + | Albumin | 4.2 | 3.2 - 5.0 g/dL | [facility] | | | | | | [facility] | | | | | | MEDICAL | | | | | | CENTER - | | | | | | LABORATORY | | + + + + + + | Bilirubin | 0.8Comment: This is an | 0.1 - 1.5 mg/dL | [facility] | | | Total | appended report. These | | [facility] | | | | results have been | | MEDICAL | | | | appended to a previously | | CENTER - | | | | preliminary verified | | LABORATORY | | | | report. | | | | + + + + + + | Total | 7.4 | 6.0 - 7.8 g/dL | [facility] | | | Protein | | | [facility] | | | | | | MEDICAL | | | | | | CENTER - | | | | | | LABORATORY | | + + + + + + | AST | 23Comment: This is an | 10 - 42 U/L | [facility] | | | | appended report. These | | [facility] | | | | results have been | | MEDICAL | | | | appended to a previously | | CENTER - | | | | preliminary verified | | LABORATORY | | | | report. | | | | + + + + + + | ALT | 16Comment: This is an | 6 - 45 U/L | [facility] | | | | appended report. These | | [facility] | | | | results have been | | MEDICAL | | | | appended to a previously | | CENTER - | | | | preliminary verified | | LABORATORY | | | | report. | | | | + + + + + + | Alkaline | 70Comment: This is an | 40 - 110 U/L | [facility] | | | Phosphatase | appended report. These | | [facility] | | | | results have been | | MEDICAL | | | | appended to a previously | | CENTER - | | | | preliminary verified | | LABORATORY | | | | report. | | | | + + + + + + | Globulin | 3.2 | 2.1 - 3.8 g/dL | [facility] | | | | | | [facility] | | | | | | MEDICAL | | | | | | CENTER - | | | | | | LABORATORY | | + + + + + + | Albumin/Salena | 1.3 | 0.8 - 2.0 | [facility] | | | bulin Ratio | | | [facility] | | | | | | MEDICAL | | | | | | CENTER - | | | | | | LABORATORY | | + + + + + + | BUN/Creatin | 15.3 | | [facility] | | | ine Ratio | | | [facility] | | | | | | MEDICAL | | | | | | CENTER - | | | | | | LABORATORY | | + + + + + + + + | Specimen | + + | Blood | + + + + + + + | Performing | Address | City/State/Zipcode | Phone Number | | Organization | | | | + + + + + | [facility] | [address] | [place] | [phone] | | [facility] | | [address] | | | - LABORATORY | | | | + + + + + CBC with Differential (04/15/2016 1:15 PM PST) + + + + + + | Component | Value | Ref Range | Performed | Pathologist | | | | | At | Signature | + + + + + + | White Blood | 3.5 (L) | 4.0 - 11.0 K/uL | [facility] | | | Cells | | | [facility] | | | | | | MEDICAL | | | | | | CENTER - | | | | | | LABORATORY | | + + + + + + | Red Blood | 5.03 | 4.30 - 5.70 | [facility] | | | Cells | | M/uL | [facility] | | | | | | MEDICAL | | | | | | CENTER - | | | | | | LABORATORY | | + + + + + + | Hemoglobin | 14.3 | 13.5 - 18.0 | [facility] | | | | | g/dL | [facility] | | | | | | MEDICAL | | | | | | CENTER - | | | | | | LABORATORY | | + + + + + + | Hematocrit | 41.5 | 40.0 - 51.0 % | [facility] | | | | | | [facility] | | | | | | MEDICAL | | | | | | CENTER - | | | | | | LABORATORY | | + + + + + + | MCV | 82.4 (L) | 83.0 - 101.0 fL | [facility] | | | | | | [facility] | | | | | | MEDICAL | | | | | | CENTER - | | | | | | LABORATORY | | + + + + + + | MCH | 28.4 | 28.0 - 35.0 pg | [facility] | | | | | | [facility] | | | | | | MEDICAL | | | | | | CENTER - | | | | | | LABORATORY | | + + + + + + | MCHC | 34.4 | 32.0 - 36.0 | [facility] | | | | | g/dL | [facility] | | | | | | MEDICAL | | | | | | CENTER - | | | | | | LABORATORY | | + + + + + + | RDW-CV | 13.7 | <15.0 % | [facility] | | | | | | [facility] | | | | | | MEDICAL | | | | | | CENTER - | | | | | | LABORATORY | | + + + + + + | Platelet | 155 | 140 - 440 K/uL | [facility] | | | Count | | | [facility] | | | | | | MEDICAL | | | | | | CENTER - | | | | | | LABORATORY | | + + + + + + | MPV | 8.3 | fL | [facility] | | | | | | [facility] | | | | | | MEDICAL | | | | | | CENTER - | | | | | | LABORATORY | | + + + + + + | % | 34.1 (L) | 45.0 - 82.0 % | [facility] | | | Neutrophils | | | [facility] | | | | | | MEDICAL | | | | | | CENTER - | | | | | | LABORATORY | | + + + + + + | % | 47.2 (H) | 20.0 - 45.0 % | [facility] | | | Lymphocytes | | | [facility] | | | | | | MEDICAL | | | | | | CENTER - | | | | | | LABORATORY | | + + + + + + | % Monocytes | 16.5 (H) | 4.0 - 12.0 % | [facility] | | | | | | [facility] | | | | | | MEDICAL | | | | | | CENTER - | | | | | | LABORATORY | | + + + + + + | % | 2.0 | 0.0 - 5.0 % | [facility] | | | Eosinophils | | | [facility] | | | | | | MEDICAL | | | | | | CENTER - | | | | | | LABORATORY | | + + + + + + | % Basophils | 0.2 | 0.0 - 1.0 % | [facility] | | | | | | [facility] | | | | | | MEDICAL | | | | | | CENTER - | | | | | | LABORATORY | | + + + + + + | Absolute | 1.20 (L) | 1.80 - 8.50 | [facility] | | | Neutrophils | | K/uL | [facility] | | | | | | MEDICAL | | | | | | CENTER - | | | | | | LABORATORY | | + + + + + + | Absolute | 1.60 | 0.60 - 3.20 | [facility] | | | Lymphocytes | | K/uL | [facility] | | | | | | [facility] | | | | | | CENTER - | | | | | | LABORATORY | | + + + + + + | Absolute | 0.60 | 0.00 - 1.00 | [facility] | | | Monocytes | | K/uL | [facility] | | | | | | [facility] | | | | | | CENTER - | | | | | | LABORATORY | | + + + + + + | Absolute | 0.10 | 0.00 - 0.40 | [facility] | | | Eosinophils | | K/uL | [facility] | | | | | | [facility] | | | | | | [facility]ENTER - | | | | | | LABORATORY | | + + + + + + | Absolute | 0.00 | 0.00 - 0.10 | [facility] | | | Basophils | | K/uL | [facility] | | | | | | MEDICAL | | | | | | CENTER - | | | | | | LABORATORY | | + + + + + + + + | Specimen | + + | Blood | + + + + + + + | Performing | Address | City/State/Zipcode | Phone Number | | Organization | | | | + + + + + | [facility] | [address] | [place] | [phone] | | [facility] | | [address] | | | - LABORATORY | | | | + + + + + ECG 12 lead (04/15/2016 1:00 PM PST) + + + + + + | Component | Value | Ref Range | Performed | Pathologist | | | | | At | Signature | + + + + + + | VENTRICULAR | 66 | BPM | [facility] | | | RATE EKG | | | | | + + + + + + | ATRIAL RATE | 66 | BPM | [facility] | | + + + + + + | P-R | 158 | ms | [facility] | | | INTERVAL | | | | | + + + + + + | QRS | 100 | ms | [facility] | | | DURATION | | | | | + + + + + + | Q-T | 416 | ms | [facility] | | | INTERVAL | | | | | + + + + + + | Q-T | 436 | ms | [facility] | | | INTERVAL | | | | | | (CORRECTED) | | | | | + + + + + + | P WAVE AXIS | 48 | degrees | [facility] | | + + + + + + | QRS AXIS | 72 | degrees | [facility] | | + + + + + + | T AXIS | 38 | degrees | [facility] | | + + + + + + | INTERPRETAT | Normal sinus | | [facility] | | | ION TEXT | rhythmMinimal voltage | | | | | | criteria for LVH, may be | | | | | | normal | | | | | | variantBorderline ECGNo | | | | | | previous ECGs | | | | | | availableConfirmed by | | | | | | HELIO JIMENEZ MD ([id number]) | | | | | | on 04/16/2016 7:27:49 AM | | | | + + + + + + + + | Specimen | + + | | + + + + + | Narrative | Performed At | + + + | | | + + + + +---------+ + + | Performing | Address | City/State/Zipcode | Phone Number | | Organization | | | | + +---------+ + + | [facility] | | | | + +---------+ + + documented in this encounter Visit Diagnoses + + | Diagnosis | + + | Chest pain, unspecified - Primary | + + | Pleurisy Pleurisy without mention of effusion or current tuberculosis | + + documented in this encounter Administered Medications + +--------+ +--------+------+------+ | Medication Order | MAR | Action | Dose | Rate | Site | | | Action | Date | | | | + +--------+ +--------+------+------+ | aspirin tablet 325 mg 325 mg, | Given | 04/15/20 | 325 mg | | | | Oral, ONCE, 04/15/16 at 1310, | | 16 1:22 | | | | | For 1 dose | | PM PST | | | | + +--------+ +--------+------+------+ +---+---+ | | | +---+---+ + +-------+ +-------+---+---+ | ketorolac (TORADOL) injection | Given | 04/15/20 | 30 mg | | | | 30 mg 30 mg, Intravenous, ONCE, | | 16 1:20 | | | | | 04/15/16 at 1320, For 1 dose | | PM PST | | | | + +-------+ +-------+---+---+ +---+---+ | | | +---+---+ documented in this encounter
--- OUTSIDE RECORDS SUMMARY | ~2019-11-25 | XMS | Encounter Summary ---
Demographics + + + | Address | [address] | | | [place] [address] | + + + | Home Phone | | + + + | Preferred Language | Unknown | + + + | Marital Status | | + + + | Yazdanism Affiliation | 1013 | + + + | Race | Unknown | + + + | Ethnic Group | Unknown | + + + Author + + + | Author | [facility] | | | and [place] | + + + | Organization | [facility] | | [...] [place] | | | | | [address] | | + + + + + Care Team Providers + +------+ + | Care Grocery Department Manager Name | Role | Phone | [...] Provider Unknown | | | | | [facility] | [phone] | | | | | [address] | | | | | | [phone] | | | +--------+ + + + [...] [place] | | | | | | [address] | | | | | | | | +--------+---------+ + + + documented as of this encounter Procedures + +--------+ + + + | Procedure Name | Priori | Date/Time | Associated Diagnosis | Comments | | | ty | | | | + +--------+ + + + | FL C ARM < 1 HOUR | Routin | 05/27/2012 | | Results for this | | | e | 5:06 AM | | procedure are in the | | | | PST | | results section. | + +--------+ + + + documented in this encounter Results FL C-Arm < 1 Hour (05/27/2012 5:06 AM PST) + + | Specimen [...]
--- OUTSIDE RECORDS SUMMARY | ~2019-11-25 | XMS | Encounter Summary ---
Demographics + + + | Address | [address] | | | [place] [address] | + + + | Home Phone | | + + + | Preferred Language | Unknown | + + + | Marital Status | | + + + | Church Affiliation | 1013 | + + + [...] [place] | | | | | [address] | | + + + + + Care Team Providers + +------+ + | Care Preparation Supervisor Canning Name | Role | Phone | + +------+ + PCP | Unavailable | + +------+ + Encounter Details +--------+ + + + + | Date | Type | Department | Care Team | Description | +--------+ + + + + | 02/06/ | Emergency | [facility] | Bam Us, | Abdominal Pain, | | 2008 | | MEDICAL CENTER | MD [address] | Unspecified Site | | | | EMERGENCY CENTER | [place], [place] | | | | | [address] | [address] | | | | | [place], [place] | [phone] | | | | | [address] | | | | | | [phone] | | | +--------+ + + + [...] [place] | | | | | | [address] | | | | | | | | +--------+---------+ + + + documented as of this encounter Visit Diagnoses + + | Diagnosis | + + | Abdominal pain, unspecified site | + + documented in this encounter"
--- OUTSIDE RECORDS SUMMARY | ~2019-11-25 | XMS | Encounter Summary ---
Demographics + + + | Address | [address] | | | [place] [address] | + + + | Home Phone | | + + + | Preferred Language | Unknown | + + + | Marital Status | | + + + | Mormon Affiliation | 1013 | + + + | Race | Unknown | + + + | Ethnic Group | Unknown | + + + Author + + + | Author | [facility] | | | and [place] | + + + | Organization | [facility] | | [...] [place] | | | | | [address] | | + + + + + Care Team Providers + +------+ + | Care Finance Associate Name | Role | Phone | [...] | Anesthesiolog | Diagnoses | Dong, | Iker, | | | | y / Pain | | MD Skyler | MD Skyler | | | | Medicine | Sacrococcyge | [address] | | | | | al | [address] | [address] | | | | | disorders, | DRIVE SUITE | B | | | | | not | B | [place] | | | | | elsewhere | [place], | [address] | | | | | classified | [place] [address] | Phone: | | | | | Procedures | Phone: | [phone] | | | | | ND INJECT SI | [phone] | Fax: | | | | | JOINT | Fax: | [phone] | | | | | ARTHRGRPHY&/ | [phone] | | | | | | ANES/STEROID | | | | | | | W/IMAGE | | | | | | | CHG | | | | | | | FLUOROSCOPIC | | | | | | | GUIDANCE | | | | | | | NEEDLE | | | | | | | PLACEMENT | | | | | | | ADD ON | | | | | | | Bilat Si's- | | | +--------+--------+ + + + + Encounter Details +--------+ + + + + | Date | Type | Department | Care Team | Description | +--------+ + + + + | 03/21/ | Hospital | [facility] | Skyler Dong, | Sacroiliac joint | | 2019 | Encounter | INTERVENTIONAL PAIN | MD [address] | pain (Primary Dx) | | | | MGMT [address] | | | | | [address], | [place] [address] | | | | | [place] [address] | [phone] | | | | | [phone] | | | +--------+ + + + [...] + + + | Blood Pressure | 141/89 | 03/21/2019 7:52 AM | | | | | PST | | + + + + + | Pulse | 67 | 03/21/2019 7:52 AM | | | | | PST | | + + + + + | Temperature | 36.7 C (98.1 F) | 03/21/2019 7:37 AM | | | | | PST | | + + + + + | Respiratory Rate | 18 | 03/21/2019 7:52 AM | | | | | PST | | + + + + + | Oxygen Saturation | 99% | 03/21/2019 7:52 AM | | | | | PST | [...] in this encounter Discharge Instructions Patient Instructions Neeru Cortez RN - 03/21/2019 7:14 AM PST Steroid Injection Disc harge Instructions Activity If you received medication for [...] and his staff can be contacted at [phone]. If you are unable to contact your doctor or their associate, you may come to the Emergency Department at [facility]. These instructions have been explained to [...] documented as of this encounter Miscellaneous Notes Op Note - Skyler Dong MD - 03/21/2019 9:43 AM [facility] [address] [place], [facility] [address], Service: Interventional Pain Management Operative Note Name: Ivan Giles Age: 53 y.o. Todays Date: 03/21/2019 Time: 9:43 PROCEDURE-Bilateral Sacroiliac Joint Injections LEFT sacroiliac joint injection with steroids under fluoroscopic guidance. RIGHT sacroiliac joint injection with steroids under fluoroscopic guidance. PREOPERATIVE DIAGNOSIS [ES]- 1. Sacro-iliac pain M53.3 POSTOPERATIVE DIAGNOSIS [ES]- 2. Sacro-iliac pain M53.3 ANESTHESIA- Local with 1% lidocaine. COMPLICATIONS- None apparent. BLOOD LOSS-Zero. INDICATIONS FOR PROCEDURE: This patient has pain and tenderness in the region of the sacroi liac joints bilaterally. Stressing of the joints causes increased pain. This pain has failed conservative therapy. The pain is also significantly restricting thier activities. They are therefore a candidate for bilateral sacroiliac joint steroid injections under fluoroscopic guidance. Bilateral Sacroiliac Joint Injection Procedure- After informed consent was obtained, the patient was taken to the operating room and placed in the prone position with the patient's abdomen supported by pillows. Procedural time out was performed. Fluoroscopy was utilized to identify the LEFT and RIGHT sacroiliac joints. The lumbosacral region was prepped with ChloraPrep and draped in the usual sterile fashion. The skin and subcutaneous tissues at the injection sites were anesthetized with a total of 9 mL of 1% lidocaine. This was done utilizing a 25-gauge, 1-1/2 inch needle. Under fluoroscopic guidance, a 3-1/2 inch 22-gauge block needle was placed into the LEFT sa croiliac joint. Placement was confirmed with injection of a small amount of Omnipaque 300 c ontrast, which demonstrated spread within the joint. A mixture containing 30 mg of triamcin olone and 1 mL of preservative-free 0.5 % Marcaine was injected and the needle was removed. Under fluoroscopic guidance, a 3-1/2 inch 22-gauge block needle was placed into the RIGHT s acroiliac joint. Placement was confirmed with injection of a small amount of Omnipaque 300 contrast, which demonstrated spread within the joint. A mixture containing 30 mg of triamci nolone and 1 mL of preservative-free 0.5 % Marcaine was injected and the needle was removed. [...] the patient will be seen back at [facility] for reevaluation a nd further therapeutic plans. PREPARED BY: Skyler Dong M.D. nterval H&P Note (u nlinked) - Skyler Dong MD - 03/21/2019 9:43 AM PST Please see procedure note. There have been no changes to the history and physical since 02/07/2019. Sedation Presedation Assessment completed. ASA Classification: ASA 3 - Patient with moderate systemic disease with functional limitat ions Airway assessment performed. Mallampati Classification: I (tonsillar pillars, fauces, uvula and soft palate) General: Well-developed well-nourished patient in no acute distress. Patient is awake alert and oriented x4. Mood is appropriate. HEENT: NCAT, EOMI, PERRLA. Oropharynx is pink and moist without lesions. Lungs: Clear to auscultation. Heart: Regular rate and rhythm without murmurs gallops or rubs. Neurologic: Cranial nerves II through XII are grossly intact. Memory-intact. Speech is flue nt with no expressive issues. Fund of knowledge is appropriate. Station/Gait: Upright, normal non-shuffling non-antalgic gait Dictation performed with [employer] voice recognition software and has been reviewed, even so t here may be some sound alike typographical errors. documented in this e ncounter Plan of [...] [place] | | | | | | [id number] | | | | | | | [...] | Procedure Note | + + | Bailey, User - 06/01/2019 6:35 AM PST This [...] + | Diagnosis | + + | Sacroiliac joint pain - Primary Disorders of sacrum | + + documented in this encounter Administered Medications + +--------+ +-------+------+ + | Medication Order | MAR | Action | Dose | Rate | Site | | | Action | Date | | | | + +--------+ +-------+------+ + | triamcinolone acetonide | Given | 03/21/20 | 20 mg | | Back-Lef | | (KENALOG-40) 40 mg/mL injection | | 19 7:30 | | | t Lower | | ONCE PRN, Starting 03/21/19 at | | AM PST | | | | | 0725, Intra-op | | | | | | + +--------+ +-------+------+ + +-------+ +-------+---+ + | Given | 03/21/20 | 20 mg | | Back-Lef | | | 19 7:25 | | | t Lower | | | AM PST | | | | +-------+ +-------+---+ + +---+---+ | | | +---+---+ documented in this encounter"
--- OUTSIDE RECORDS SUMMARY | ~2019-11-25 | XMS | Encounter Summary ---
Demographics + + + | Address | [address] | | | [place] [address] | + + + | Home Phone | | + + + | Preferred Language | Unknown | + + + | Marital Status | | + + + | Buddhism Affiliation | 1013 | + + + | Race | Unknown | + + + | Ethnic Group | Unknown | + + + Author + + + | Author | [facility] | | | and [place] | + + + | Organization | [facility] | | | [...] [place] | | | | | [address] | | + + + + + Care Team Providers + +------+ + | Care Parking Garage Manager Name | Role | Phone | [...] | | | y / Pain | DDD | MD Skyler | MD Skyler | | | | Medicine | (degenerativ | [address] | | | | | e disc | [address] | [address] | | | | | disease), | DRIVE SUITE | B | | | | | lumbar | B | [place] | | | | | Radiculopath | [place], | [address] | | | | | y, lumbar | [place] [address] | Phone: | | | | | region | Phone: | [phone] | | | | | Procedures | [phone] | Fax: | | | | | [place] | Fax: | [phone] | | | | | DX/THER SBST | [phone] | | | | | | INTRLMNR | | | | | | | LMBR/SAC | | | | | | | W/IMG GDN | | | | | | | CAUDAL WITH | | | | | | | CATH TARGET | | | | | | | RIGHT L4 L5 | | | | | | | S1 NR | | | +--------+--------+ + + + + Encounter Details +--------+ + + + + | Date | Type | Department | Care Team | Description | +--------+ + + + + | 07/07/ | Hospital | [facility] | Skyler Dong, | Lumbar radicular | | 2020 | Encounter | INTERVENTIONAL PAIN | MD [address] | pain (Primary Dx); | | | | MGMT [address] | Lumbar herniated | | | | DR [address], | [place] [address] | disc; Degenerative | | | | [place] [address] | [phone] | lumbar spinal | | | | [phone] | | stenosis; | | | | | | Arthropathy of | | | | | | lumbar facet joint | +--------+ + + + + Social [...] + + + | Blood Pressure | 121/96 | 07/07/2019 10:26 AM | | | | | PST | | + + + + + | Pulse | 94 | 07/07/2019 10:26 AM | | | | | PST | | + + + + + | Temperature | 36.8 C (98.2 F) | 07/07/2019 10:23 AM | | | | | PST | | + + + + + | Respiratory Rate | 18 | 07/07/2019 10:26 AM | | | | | PST | | + + + + + | Oxygen Saturation | 96% | 07/07/2019 10:26 AM | | | | | PST [...] in this encounter Discharge Instructions Patient Instructions Mara Cárdenas RN - 07/07/2019 10:24 AM PSTEpidural Steroid Injection Discharge Instructions Activity If you received medication [...] / or concerns regarding this procedure. Dr. Felix Mac and his staff can be contacted at [phone]. If you are unable to contact your doctor or their associate, you may come to the Emergency Department at [facility]. These instructions have been explained to the [...] encounter Progress Notes Skyler Dong MD - 07/07/2019 3:42 PM PST Please see procedure note. There have been no changes to the history and physical since 06/29/2019. Sedation Presedation Assessment completed. ASA Classification: 3 Airway assessment performed. Mallampati Classification: 1 documented in this e ncounter Miscellaneous Notes Op Note - Skyler Dong MD - 07/07/2019 3:43 PM PSTFormatting of this note might be di fferent from the original. [address], [address] [address] Service: Interventional Pain Management Operative Note Name: Ivan Giles Age: 53 y.o. Todays Date: 07/07/2019 Time: 3:43 PM PROCEDURE-Caudal TOI with Catheter Caudal epidural steroid injection with a catheter targeting the: Right L4 and L5 and S1 ner ve roots. PREOPERATIVE DIAGNOSIS [ES]- ICD-10-CM ICD-9-CM 1. Lumbar radicular pain M54.16 724.4 2. Lumbar herniated disc M51.26 722.10 3. Degenerative lumbar spinal stenosis M48.061 724.02 4. Arthropathy of lumbar facet joint M47.816 721.3 POSTOPERATIVE DIAGNOSIS [ES]- ICD-10-CM ICD-9-CM 1. Lumbar radicular pain M54.16 724.4 2. Lumbar herniated disc M51.26 722.10 3. Degenerative lumbar spinal stenosis M48.061 724.02 4. Arthropathy of lumbar facet joint M47.816 721.3 ANESTHESIA- Moderate sedation with 1-1/2 mg of Versed and 50 Mcg of fentanyl and Local anesthesia with 1% lidocaine. COMPLICATIONS- None apparent. BLOOD LOSS- Zero. INDICATIONS FOR PROCEDURE: This patient has MRI documented lumbar degenerative disc disease and lumbar facet arthropathy. They have right lower extremity radicular pain in the right L 4 and L5 and S1 distributions that has failed conservative therapy. They are therefore a can didate for epidural steroid injection. CAUDAL TOI PROCEDURE- After informed consent was obtained, the patient was taken to the operating room and placed in the prone position with her abdomen supported by pillows. Procedural time out was perfor med. Fluoroscopy was utilized to identify the caudal canal. The patient's lumbar sacral re gion was prepped with ChloraPrep and draped in the usual sterile fashion. The skin and subc utaneous tissue at the injection site were anesthetized with 4 mL of 1% lidocaine. This was done utilizing a 25-gauge, 1-1/2 inch needle. Under fluoroscopic guidance, a 16-gauge Touh y needle was placed into the caudal canal. An [employer]-Done. Brevi Catheter was then threaded direc tionally through this needle up to the Right L4 neural foramen. Injection of 1 mL of Omnipa que 300 contrast demonstrated nice spread in the epidural space into the Right L4 and L5 and S1 neural foramen. A mixture containing 60 mg of Depo-Medrol, 1 mL saline and 1 mL of pres ervative free 1% lidocaine was injected and the needle was removed. The patient tolerated the procedure well and was taken to the recovery room in stable condi tion. There were no complications apparent. Throughout the procedure, the patient had radha nuous monitoring of blood pressure, pulse and oxygen saturation. These remained stable thro ughout the procedure. The patient will be contacted by phone in approximately 2 weeks for a telephone followup. If necessary, the patient will be seen back at [facility] for re-evaluation and further therapeutic plans. PREPARED BY: Skyler Dong M.D. Tdocumented in this encounter Plan of Treatment +--------+---------+ + + + | Date | Type | Specialty | Care Team | Description | +--------+---------+ + + + | 12/05/ | Office | Pain Medicine | Vitaliy Mendoza, | | 2019 | Visit | | DO [address] | | | | | | [place] | | | | | | [address] | | | | | | | | +--------+---------+ + + + + +---------+--------+ + + | Name | Type | Priori | Associated Diagnoses | Date/Time | | | | ty | | | + +---------+--------+ + + | FL C-Arm | Imaging | Routin | | 07/07/2019 10:18 AM | | | | e | | PST | + +---------+--------+ + + + +---------+--------+ [...] starting | | | | | | 07/07/2019 until | | | | | | 07/07/2019 | + +---------+--------+ + + documented as of this encounter Visit Diagnoses + + | Diagnosis | + + | Lumbar radicular pain - Primary Thoracic or lumbosacral neuritis or radiculitis, | | unspecified | + + | Lumbar herniated disc Displacement of lumbar intervertebral disc without myelopathy | + + | Degenerative lumbar spinal stenosis Spinal stenosis, lumbar region, without | | neurogenic claudication | + + | Arthropathy of lumbar facet joint Lumbosacral spondylosis without myelopathy | + + documented in this encounter Administered Medications + +--------+ +--------+------+------+ | Medication Order | MAR | Action | Dose | Rate | Site | | | Action | Date | | | | + +--------+ +--------+------+------+ | fentaNYL (PF) injection | Given | 07/07/19 | 50 mcg | | | | Intravenous, ONCE PRN, Starting | | 20 10:11 | | | | | 07/07/19 at 1011 | | AM PST | | | | + +--------+ +--------+------+------+ +---+---+ | | | +---+---+ + +-------+ +-------+---+---+ | methylPREDNISolone acetate | Given | 07/07/19 | 60 mg | | | | (DEPO-MEDROL) 40 mg/mL injection | | 20 10:19 | | | | | ONCE PRN, Starting 07/07/19 | | AM PST | | | | | at 1019, Intra-op | | | | | | + +-------+ +-------+---+---+ +---+---+ | | | +---+---+ + +-------+ +--------+---+---+ | midazolam (VERSED) 1 mg/mL | Given | 07/07/19 | 1.5 mg | | | | injection Intravenous, ONCE PRN, | | 20 10:11 | | | | | Starting 07/07/19 at 1011, | | AM PST | | | | | Intra-op | | | | | | + +-------+ +--------+---+---+ +---+---+ | | | +---+---+ + +-------+ +-------+---+---+ | sodium chloride (PF) 0.9% | Given | 07/07/19 | 5 mLs | | | | injection flush Intravenous, | | 20 10:11 | | | | | ONCE PRN, Starting 07/07/19 at | | AM PST | | | | | 1011 | | | | | | + +-------+ +-------+---+---+ +---+---+ | | | +---+---+ documented in this encounter"
--- OUTSIDE RECORDS SUMMARY | ~2019-11-25 | XMS | Encounter Summary ---
Demographics + + + | Address | [address] | | | [place] [address] | + + + | Home Phone | | + + + | Preferred Language | Unknown | + + + | Marital Status | | + + + | Jew Affiliation | 1013 | + + + [...] [place] | | | | | [address] | | + + + + + Care Team Providers + +------+ + | Care Digital Retoucher Name | Role | Phone | + +------+ + | Jax Cabrera MD | PCP | | + +------+ + Reason for Visit + +--------+ + | Reason | Onset | Comments | | | Date | | + +--------+ + | Procedure | 07/05/ | | | | 2019 | | + +--------+ + Encounter Details +--------+ + + + + | Date | Type | Department | Care Team | Description | +--------+ + + + + | 07/05/ | Telephone | [facility] | Skyler Dong, | Procedure | | 2020 | | [facility] | [address] | | | | | [address] | | | | | [address] | [place] [address] | | | | | [place], [place] | [phone] | | | | | [address] | | | | | | [phone] | | | +--------+ + + + [...] encounter Miscellaneous Notes Telephone Encounter - Shannan Escobedo Him Coder - 07/05/2019 3:42 PM PSTUnable to contact patient, invalid number and non working number. documented in this encounter Plan of Treatment [...] [place] | | | | | | [id number] | | | | | | | | +--------+---------+ + + + documented as of this encounter Visit Diagnoses Not on filedocumented in this encounter"
--- OUTSIDE RECORDS SUMMARY | ~2019-11-25 | XMS | Encounter Summary ---
Demographics + + + | Address | [address] | | | [place] [address] | + + + | Home Phone | | + + + | Preferred Language | Unknown | + + + | Marital Status | | + + + | Alevism Affiliation | 1013 | + + + | Race | Unknown | + + + | Ethnic Group | Unknown | + + + Author + + + | Author | [facility] | | | and [place] | + + + | Organization | [facility] | | | [...] [place] | | | | | [address] | | + + + + + Care Team Providers + +------+ + | Care Air Conditioning Equipment Mechanic Name | Role | Phone | + +------+ + | No, Unknownpcp | PCP | | + +------+ + Encounter Details +--------+ + + + + | Date | Type | Department | Care Team | Description | +--------+ + + + + | 08/09/ | Hospital | [facility] | Conversion | Pain | | 2014 | Encounter | CONVERSION [address] | Transaction, | | | | | [address] | Provider Unknown | | | | | [facility] [place] | [phone] | | | | | [address] | | | | | | [phone] | | | +--------+ + + + [...] [place] | | | | | | [address] | | | | | | | | +--------+---------+ + + + documented as of this encounter Procedures + +--------+ + + + | Procedure Name | Priori | Date/Time | Associated Diagnosis | Comments | | | ty | | | | + +--------+ + + + | MRI CERVICAL SPINE | Routin | 04/12/2012 | | Results for this | | WO CONTRAST | e | 3:58 AM | | procedure are in the | | | | PST | | results section. | + +--------+ + + + documented in this encounter Results MRI Cervical Spine wo Contrast (04/12/2012 3:58 AM PST) + + | Specimen | [...]
--- OUTSIDE RECORDS SUMMARY | ~2019-11-25 | XMS | Encounter Summary ---
Demographics + + + | Address | [address] | | | [place] [address] | + + + | Home Phone | | + + + | Preferred Language | Unknown | + + + | Marital Status | | + + + | Nondenominational Affiliation | 1013 | + + + | Race | Unknown | + + + | Ethnic Group | Unknown | + + + Author + + + | Author | [facility] | | | and [place] | + + + | Organization | [facility] | | [...] [place] | | | | | [address] | | + + + + + Care Team Providers + +------+ + | Care Renewable Energy Broker Name | Role | Phone | + +------+ + PCP | Unavailable | + +------+ + Encounter Details +--------+ + + + + | Date | Type | Department | Care Team | Description | +--------+ + + + + | 02/01/ | Abstract | [facility] | [facility] | | | 2011 | | Conversion Location | SR | | | | | [address] | | | | | | [place], [place] | | | | | | [address] | | | | | | [phone] | | | +--------+ + + + [...] + + + | Blood Pressure | 108/70 | 08/20/2011 12:00 AM | | | | | PDT | | + + + + + | Pulse | - | - | | + [...] + + + + | Weight | 68.9 kg (152 lb) | 08/20/2011 12:00 AM | | | | | PDT | | + + + + + | Height | 167.6 cm (5' 6") | 05/21/2011 12:00 AM | | | | | PST | | + + + + + | Body Mass Index | 24.53 | 05/21/2011 12:00 AM | | | | | PST | | + + + + + documented in this encounter Plan of Treatment [...] [place] | | | | | | [id number] | | | | | | | | +--------+---------+ + + + documented as of this encounter Visit Diagnoses Not on filedocumented in this encounter
--- OUTSIDE RECORDS SUMMARY | ~2019-11-25 | XMS | Encounter Summary ---
Demographics + + + | Address | [address] | | | [place] [address] | + + + | Home Phone | | + + + | Preferred Language | Unknown | + + + | Marital Status | | + + + | Samaritan Affiliation | 1013 | + + + | Race | Unknown | + + + | Ethnic Group | Unknown | + + + Author + + + | Author | [facility] | | | and [place] | + + + | Organization | [facility] | | [...] [place] | | | | | [address] | | + + + + + Care Team Providers + +------+ + | Care Hardware Designer Name | Role | Phone | + +------+ + PCP | Unavailable | + +------+ + Encounter Details +--------+ + + + + | Date | Type | Department | Care Team | Description | +--------+ + + + + | 05/08/ | Hospital | [facility] | | | | 2010 | Encounter | [facility] | | | | | | [address] | | | | | | [place] | | | | | | [address] | | | | | | [phone] | | | +--------+ + + + [...] documented as of this encounter ED Notes Francisco Power MD - 05/08/2011 12:52 AM PSTDATE: 05/08/2011 CHIEF COMPLAINT: Vomiting and does not feel well. HISTORY OF PRESENT ILLNESS: The patient is a 45-year-old gentleman who has been vomiting. H e has not been feeling well. He has had generalized malaise. It started fairly acutely arou nd 3 hours ago. He w as otherwise feeling well earlier today. He does have a history of hep atitis C and HIV. He has not tidwell d fevers. He has not had chest pain, not been short of trudi th. Denies pleuritic pain. No lethargy. He has had chronic loose stools, not really changed from previously. No hematemesis. He has not had any cough or congestion. He denies night s weats. PAST MEDICAL HISTORY: HIV, hepatitis C, has a known heart murmur, neuropathy, asthma, COPD, hypertens ion. ALLERGIES: PLEASE SEE NURSE'S NOTES. MEDICATIONS: Please see nurse's notes. SOCIAL HISTORY: Noncontributory. REVIEW OF SYSTEMS: As per HPI. Other systems negative. PHYSICAL EXAMINATION VITAL SIGNS: Afebrile, respirations 16, heart rate 68, BP 149/107, O2 saturation 98%. He is alert and oriented, appears uncomfortable, but nontoxic. HEENT: Normocephalic, atraumatic. Mucous membranes are dry. Oropharynx otherwise clear. NECK: Without any meningismus. CARDIOVASCULAR: Regular rate. No murmur, rub or gallop. PULMONARY: Clear to auscultation without wheeze, rhonchi, tachypnea or respiratory distress . ABDOMEN: Soft. No tenderness, rebound or guarding. NEUROLOGIC: Grossly intact. No focal deficit. EMERGENCY DEPARTMENT COURSE: He had an IV placed. He was given 2 L of fluid. He received so me Zofran but had some recurrent retching. He was treated with Phenergan and was sleeping c omfortably on reeval uation. Chest x-ray did not reveal acute abnormality. At this point, h e appears to have a gastritis w ith vomiting. He otherwise appears nontoxic, afebrile. He h ad a viral load which was undetectable as well as a CD4 count above 500 not all that long a go. Will go ahead and treat him symptomatically with some Zofran and Phenergan, rest, and f luids. Return for worsening symptoms or other complaints. DIAGNOSIS VOMITING AND DEHYDRATION. DISPOSITION: The patient discharged home with instructions as above. DICTATED BY: Francisco Power MD Emergency Medicine JOB #: [id number] EXT JOB #:[id number] <Electronicall y Signed by Francisco Power MD> 05/11/11 0714 documented in this encounter Plan of Treatment +--------+---------+ + + + | Date | Type | Specialty | Care Team | Description | +--------+---------+ + + + | 12/05/ | Office | Pain Medicine | Vitaliy Mendoza, | | | 2019 | Visit | | DO [address] | | | | | | [place] | | | | | | [address] | | | | | | | | +--------+---------+ + + + documented as of this encounter Procedures + +--------+ + + + | Procedure Name | Priori | Date/Time | Associated Diagnosis | Comments | | | ty | | | | + +--------+ + + + | CBC WITH | Routin | 05/08/2011 | | Results for this | | DIFFERENTIAL | e | 1:41 AM | | procedure are in the | | | | PST | | results section. | + +--------+ + + + | COMPREHENSIVE | Routin | 05/08/2011 | | Results for this | | METABOLIC PANEL | e | 1:41 AM | | procedure are in the | | | | PST | | results section. | + +--------+ + + + | XR CHEST AP PORTABLE | | 05/08/2011 | | Results for this | | | | 12:52 AM | | procedure are in the | | | | PST | | results section. | + +--------+ + + + documented in this encounter Results Comprehensive Metabolic Panel (05/08/2011 1:41 AM PST) + + + + + + | Component | Value | Ref Range | Performed | Pathologist | | | | | At | Signature | + + + + + + | Glucose | 110 (H) | 70 - 109 mg/dL | [facility] | | | | | | [facility] | | | | | [facility] | | | | | | [facility] - | | | | | | LABORATORY | | + + + + + + | Calcium | 9.9 | 8.3 - 10.5 | [facility] | | | | | mg/dL | [facility] | | | | | | [facility] | | | | | | C[facility] - | | | | | | LABORATORY | | + + + + + + | Alkaline | 97 | 40 - 110 IU/L | [facility] | | | Phosphatase | | | [facility] | | | | | | [facility] | | | | | | CENTER - | | | | | | LABORATORY | | + + + + + + | AST | 95 (H) | 10 - 42 IU/L | [facility] | | | | | | [facility] | | | | | | [facility] | | | | | | C[facility] - | | | | | | LABORATORY | | + + + + + + | ALT | 133 (H) | 6 - 45 IU/L | [facility] | | | | | | [facility] | | | | | | [facility] | | | | | | C[facility] - | | | | | | LABORATORY | | + + + + + + | Bilirubin | 1.3 (H) | 0.2 - 1.0 mg/dL | [facility] | | | Total | | | [facility] | | | | | | [facility] | | | | | | CENTER - | | | | | | LABORATORY | | + + + + + + | Total | 7.6 | 6.0 - 7.8 gm/dL | [facility] | | | Protein | | | [facility] | | | | | | [facility] | | | | | | CENTER - | | | | | | LABORATORY | | + + + + + + | Albumin | 4.4 | 3.2 - 5.0 gm/dL | [facility] | | | | | | [facility] | | | | | | [facility] | | | | | | CENTER - | | | | | | LABORATORY | | + + + + + + | BUN | 10 | 7 - 18 mg/dL | [facility] | | | | | | [facility] | | | | | | [facility] | | | | | | CENTER - | | | | | | LABORATORY | | + + + + + + | Creatinine | 0.79 | 0.60 - 1.30 | [facility] | | | | | mg/dL | [facility] | | | | | | [facility] | | | | | | CENTER - | | | | | | LABORATORY | | + + + + + + | Estimated | >60Comment: For | >60 mL/min/A | [facility] | | | GFR | -Americans, | | [facility] | | | | please multiply the | | MEDICAL | | | | result by 1.210 | | CENTER - | | | | This is an estimated | | LABORATORY | | | | GFR and is based on a | | | | | | standard adult | | | | | | body mass (A=1.73m2) and | | | | | | serum creatinine | | | | + + + + + + | BUN/Creatin | 12.7 | 12 - 20 | [facility] | | | ine Ratio | | | [facility] | | | | | | [facility] | | | | | | CENTER - | | | | | | LABORATORY | | + + + + + + | Na | 138 | 136 - 149 mEq/L | [facility] | | | | | | [facility] | | | | | | [facility] | | | | | | CENTER - | | | | | | LABORATORY | | + + + + + + | K | 3.7 | 3.5 - 5.1 mEq/l | [facility] | | | | | | [facility] | | | | | | [facility] | | | | | | CENTER - | | | | | | LABORATORY | | + + + + + + | Cl | 101 | 98 - 109 mEq/l | [facility] | | | | | | [facility] | | | | | | [facility] | | | | | | CENTER - | | | | | | LABORATORY | | + + + + + + | CO2 | 28 | 24 - 31 mEq/L | [facility] | | | | | | [facility] | | | [facility] | | [facility] | | | | | | CENTER - | | | | | | LABORATORY | | + + + + + + | Anion Gap | 12.7 | 6.0 - 17.0 | [facility] | | | | | | [facility] [...] + + | [facility] | [address] | [place] | [phone] | | [facility] | | [address] | | | - LABORATORY | | | | + + + + + | [facility] | [address] | [place] | | | [facility] | | [address] | | | - LABORATORY | | | | + + + + + CBC with Differential (05/08/2011 1:41 AM PST) + + + + + + | Component | Value | Ref Range | Performed | Pathologist | | | | | At | Signature | + + + + + + | White Blood | 4.2 | 4.0 - 11.0 K/uL | [facility] | | | Cells | | | [facility] | | | | | | [facility] | | | | | | CENTER - | | | | | | LABORATORY | | + + + + + + | Red Blood | 5.06 | 4.30 - 5.70 | [facility] | | | Cells | | M/uL | [facility] | | | | | | MED[facility] | | | | | | CENTER - | | | | | | LABORATORY | | + + + + + + | Hemoglobin | 15.7 | 13.5 - 18.0 | [facility] | | | | | gm/dL | [facility] | | | | | | [facility] | | | | | | CENTER - | | | | | | LABORATORY | | + + + + + + | Hematocrit | 46.0 | 40.0 - 51.0 % | [facility] | | | | | | [facility] | | | | | | [facility] | | | | | | CENTER - | | | | | | LABORATORY | | + + + + + + | MCV | 91.1 | 83.0 - 101.0 fL | [facility] | | | | | | [facility] | | | | | | [facility] | | | | | | CENTER - | | | | | | LABORATORY | | + + + + + + | MCH | 31.1 | 28.0 - 35.0 pg | [facility] | | | | | | [facility] | | | | | | [facility] | | | | | | CENTER - | | | | | | LABORATORY | | + + + + + + | MCHC | 34.2 | 32.0 - 36.0 | [facility] | | | | | g/dL | [facility] | | | | | | [facility]ICAL | | | | | | CENTER - | | | | | | LABORATORY | | + + + + + + | RDW-CV | 12.8 | <15.0 % | [facility] | | | | | | [facility] | | | | | | [facility] | | | | | | CENTER - | | | | | | LABORATORY | | + + + + + + | Platelet | 162 | 140 - 440 K/uL | [facility] | | | Count | | | [facility] | | | | | | MEDICAL | | | | | | CENTER - | | | | | | LABORATORY | | + + + + + + | % | 41.8 (L) | 45 - 75 % | [facility] | | | Neutrophils | | | [facility] | | | | | | MEDICAL | | | | | | CENTER - | | | | | | LABORATORY | | + + + + + + | % | 43.1 | 20 - 45 % | [facility] | | | Lymphocytes | | | [facility] | | | | | | MEDICAL | | | | | | CENTER - | | | | | | LABORATORY | | + + + + + + | % Monocytes | 12.8 (H) | 4 - 12 % | [facility] | | | | | | [facility] | | | | | | MEDICAL | | | | | | CENTER - | | | | | | LABORATORY | | + + + + + + | % | 1.4 | 0 - 5 % | [facility] | | | Eosinophils | | | [facility] | | | | | | MEDICAL | | | | | | CENTER - | | | | | | LABORATORY | | + + + + + + | % Basophils | 0.9 | 0 - 1 % | [facility] | | | | | | [facility] | | | | | | MEDICAL | | | | | | CENTER - | | | | | | LABORATORY | | + + + + + + | Absolute | 1.8 | 1.5 - 6.6 K/uL | [facility] | | | Neutrophils | | | [facility] | | | | | | MEDICAL | | | | | | CENTER - | | | | | | LABORATORY | | + + + + + + | Absolute | 1.8 | 0.6 - 3.2 K/uL | [facility] | | | Lymphocytes | | | [facility] | | | | | | MEDICAL | | | | | | CENTER - | | | | | | LABORATORY | | + + + + + + | Absolute | 0.5 | 0.0 - 1.0 K/uL | [facility] | | | Monocytes | | | [facility] | | | | | | MEDICAL | | | | | | CENTER - | | | | | | LABORATORY | | + + + + + + | Absolute | 0.1 | 0.0 - 0.4 K/uL | [facility] | | | Eosinophils | | | [facility] | | | | | | MEDICAL | | | | | | CENTER - | | | | | | LABORATORY | | + + + + + + | Absolute | 0.0 | 0.0 - 0.1 K/uL | [facility] | | | Basophils | | | [facility] | | [...] + + | [facility] | [address] | [place] | [phone] | | [facility] | | [address] | | | - LABORATORY | | | | + + + + + | [facility] | [address] | [place], [place] | | | [facility] | | [address], [facility] | | | - LABORATORY | | | | + + + + + XR Chest AP Portable (05/08/2011 12:52 AM PST) + + | Specimen | + + | | + + + + + | Narrative | Performed At | + + + | [facility] Diagnostic Imaging Department | [place] | | [address], [place] | [facility] | | PORTABLE SINGLE VIEW AP CHEST | DIAG IMG | | 05/08/2011 CLINICAL HISTORY: WEAKNESS. FINDINGS: There | | | is lordotic projection with possible deformity at the upper left | | | chest. The lung api nancy are probably clear. The lungs are | | | symmetrically aerated. There is no infiltrate or effusion. Ca | | | rdiomediastinal silhouette is remarkable only for levoposition of the | | | heart. No specific chamber enl argement is identified. There is | | | linear scarring at the right lung base. There is no heart failure | | | or pleural effusion. IMPRESSION: 1. NEGATIVE FOR ACUTE | | | CARDIOPULMONARY DISEASE. Dictated Date/Time: 05/08/2011 08:44 | | | Transcribed Date/Time: 05/08/2011 09:22 Cartridge Loading Operator: | | | <Electronically Signed by Rafa Thacker MD> 05/08/11 1328 | | + + + + + | Procedure Note | + + | Eric, Rad Conversion - 06/23/2013 4:27 PM [facility] | | Diagnostic Imaging Department [address] [facility] [place] | | PORTABLE SINGLE VIEW AP CHEST 05/08/2011 CLINICAL | | HISTORY: WEAKNESS. FINDINGS: There is lordotic projection with possible deformity at | | the upper left chest. The lung apices are probably clear. The lungs are symmetrically | | aerated. There is no infiltrate or effusion. Cardiomediastinal silhouette is remarkable | | only for levoposition of the heart. No specific chamber enlargement is identified. | | There is linear scarring at the right lung base. There is no heart failure or pleural | | effusion. IMPRESSION: 1. NEGATIVE FOR ACUTE CARDIOPULMONARY DISEASE. Dictated | | Date/Time: 05/08/2011 08:44Transcribed Date/Time: 05/08/2011 09:22Transcriptionist: | | <Electronically Signed by Rafa Thacker MD> 05/08/11 1329 | |nancy are probably clear. The lungs are symmetrically aerated. There is no infiltrate or eff usion. Ca | |rdiomediastinal silhouette is remarkable only for levoposition of the heart. No specific c hamber enl | |argement is identified. There is linear scarring at the right lung base. There is no hear t failure | |or pleural effusion. | | | |IMPRESSION: | |1. NEGATIVE FOR ACUTE CARDIOPULMONARY DISEASE. | | | |Dictated Date/Time: 05/08/2011 08:44 | |Transcribed Date/Time: 05/08/2011 09:22 | |Cartridge Loading Operator: | |<Electronically Signed by Rafa Thacker MD> 05/08/11 1328 | + + + +---------+ + + | Performing | Address | City/State/Zipcode | Phone Number | | Organization | | | | + +---------+ + + | [place] | | | | | [place] | | | | + +---------+ + + documented in this encounter Visit Diagnoses Not on filedocumented in this encounter"
--- OUTSIDE RECORDS SUMMARY | ~2019-11-25 | XMS | Encounter Summary ---
Demographics + + + | Address | [address] | | | [place] [address] | + + + | Home Phone [...] + + | Author | [facility] | + + + | Organization | [facility] | + + + | Address | Unknown | + + + | Phone | Unavailable | + + + Support + + + + + | Name | Relationship | Address | Phone | + + + + + | Gabriel Greenberg | ECON | [address] | | | | | [place] | | | | | [address] | | + + + + + Care Team Providers + +------+ + | Care Medical Transcriptionist Name | [...] + + | 08/17/ | Documentati | [facility] | Krista Lo | Social work | | 2017 | on | at [facility] | [address] | consultation (ROIs) | | | | [address] | [address] [place], | | | | | [address] [facility] | [place] [address] | | | | | Pavilion, [facility] floor | | | | | | [place], [place] | | | | | | [address] | | | | | | [phone] | | | +--------+ + + + [...]
--- OUTSIDE RECORDS SUMMARY | ~2019-11-25 | XMS | Encounter Summary ---
Demographics + + + | Address | [address] | | | [place] [address] | + + + | Home Phone | | + + + | Preferred Language | Unknown | + + + | Marital Status | Unmarried Domestic Partner | + + + | Orthodox Affiliation | NON | + + + | Race | White | + + + | Ethnic Group | Not or | + + + Author + + + | Author | [facility] | + + + | Organization | [facility] | + + + | Address | Unknown | + + + | Phone | Unavailable | + + + Support + + + + + | Name | Relationship | Address | Phone | + + + + + | Gabriel Greenberg | ECON | [address] | | | | | [place] | | | | | [address] | | + + + + + Care Team Providers + +------+ + | Care Hydrogen Operator Name | Role | Phone | + +------+ + | No Pcp Per Patient | PCP | Unavailable | + +------+ + Encounter Details +--------+ + + + + | Date | Type | Department | Care Team | Description | +--------+ + + + + | 03/18/ | Telephone | [facility] | Fred, | | | 2016 | | [facility] | MD Caio | | | | | [address] | [address] | | | | | [address] | [place], | | | | | [place], 3rd floor | [place] [address] | | | | | [place], [place] | [phone] | | | | | [address] | | | | | | [phone] | | | +--------+ + + + [...]
--- OUTSIDE RECORDS SUMMARY | ~2019-11-25 | XMS | Encounter Summary ---
Demographics + + + | Address | [address] | | | [place] [address] | + + + | Home Phone [...] [place] | | | | | [address] | | + + + + + Care Team Providers + +------+ + | Care Sed High School Teacher Name | Role | Phone | + +------+ + | Jax Cabrera MD | PCP | | + +------+ + Reason for Visit + +--------+ + | Reason | Onset | Comments | | | Date | | + +--------+ + | Medication Question | 08/02/ | Pain Medication | | | 2019 | | + +--------+ + Encounter Details +--------+ + + + + | Date | Type | Department | Care Team | Description | +--------+ + + + + | 08/02/ | Telephone | [facility] | Deyvi Kovacs, | Medication Question | | 2019 | | [facility] | RUBBER FACTORY WORKER [address] | (Pain Medication) | | | | [address] | | | | | [address] | [place] [address] | | | | | [place], [place] | [phone] | | | | | [address] | | | | | | [phone] | | | +--------+ + + + [...] encounter Miscellaneous Notes Telephone Encounter - Thelma [place] - 08/03/2019 10:03 AM PDTRandall, is returni ng call for Medication Question (Pain Medication) and would like a call back. Additional Call Details: Requesting another call back elephone Encoun Danya Aquino, Yard Switcher - 08/03/2019 10:00 AM PDTReturned patient's phone call, no answer. Unable to leave a voicemail due to no voicemail being set up. Electronicall y signed by Danya Oneill Yard Switcher at 08/03/2019 10:01 AM PDTTelephone Encounter - Zoë Marroquin - 08/03/2019 8:59 AM PDTRandall, is calling regarding Medication Questi on (Pain Medication) and would like a call back. Additional Call Details: Patient is calling to see if he could have a 4-5 day fill of pain medication. States the last injections with Dr. Dong did not work. Please call back to a dvise at the mobile number. If this is a symptom based call, was patient offered triage? Not Applicable If this is a symptom based call and you were unable to immediately transfer the call to a p nano back up scan coordinator was caller made aware that if [...] [place] | | | | | | [address] | | | | | | | | +--------+---------+ + + + documented as of this encounter Visit Diagnoses Not on filedocumented in this encounter"
--- OUTSIDE RECORDS SUMMARY | ~2019-11-25 | XMS | Encounter Summary ---
Demographics + + + | Address | [address] | | | [place] [address] | + + + | Home Phone | | + + + | Preferred Language | Unknown | + + + | Marital Status | Unmarried Domestic Partner | + + + | Shinto Affiliation | NON | + + + | Race | White | + + + | Ethnic Group | Not or | + + + Author + + + | Author | [facility] | + + + | Organization | [...] [place] | | | | | [address] | | + + + + + Care Team Providers + +------+ + | Care Medical Transcription Editor Name | Role | Phone | + +------+ + | Jax Cabrera MD | PCP | | + +------+ + Encounter Details +--------+ + + + + | Date | Type | Department | Care Team | Description | +--------+ + + + + | 04/30/ | Document-Sc | Health Information | Unknown . | | | 2016 | anned | Services [address] | | | | | | [address] | | | | | | Mailcode: [id number] | | | | | | [facility] | | | | | | [place], [place] | | | | | | [address] | | | | | | [phone] | | | +--------+ + + + [...]
--- OUTSIDE RECORDS SUMMARY | ~2019-11-25 | XMS | Encounter Summary ---
Demographics + + + | Address | [address] | | | [place] [address] | + + + | Home Phone | | + + + | Preferred Language | Unknown | + + + | Marital Status | Unmarried Domestic Partner | + + + | Islam Affiliation | NON | + + + | Race | White | + + + | Ethnic Group | Not or | + + + Author + + + | Author | [facility] | + + + | [...] [place] | | | | | [address] | | + + + + + Care Team Providers + +------+ + | Care Jewel Gauger Name | Role | Phone | + [...] Patient | | 2017 | | at [facility] | MD Caio | | | | | [address] | [address] | | | | | [address] | [place], | | | | | Pavilion, 3rd floor | [place] [address] | | | | | [place], [place] | [phone] | | | | | [address] | | | | | | [phone] | | | +--------+ + + + [...]
--- OUTSIDE RECORDS SUMMARY | ~2019-11-25 | XMS | Encounter Summary ---
Demographics + + + | Address | [address] | | | [place] [address] | + + + | Home Phone | | + + + | Preferred Language | Unknown | + + + | Marital Status | | + + + | Restoration Affiliation | 1013 | + + + | Race | Unknown | + + + | Ethnic Group | Unknown | + + + Author + + + | Author | [facility] | | | and [place] | + + + | Organization | [facility] | | [...] [place] | | | | | [address] | | + + + + + Care Team Providers + +------+ + | Care Cardiovascular Or Nurse Name | Role | Phone | + +------+ + | Jax Cabrera MD | PCP | | + +------+ + Encounter Details +--------+ + + + + | Date | Type | Department | Care Team | Description | +--------+ + + + + | 07/27/ | Hospital | [facility] | Skyler Dong, | | | 2020 | Encounter | [facility] | [address] | | | | | [address] | | | | | [address], | [place] [address] | | | | | [place] [address] | [phone] | | | | | [phone] | | | +--------+ + + + [...] [place] | | | | | | [address] | | | | | | | [...] | PDT | + +---------+--------+ + + documented as of this encounter Visit Diagnoses Not on filedocumented in this encounter"
--- OUTSIDE RECORDS SUMMARY | ~2019-11-25 | XMS | Encounter Summary ---
Demographics + + + | Address | [address] | | | [place] [address] | + + + | Home Phone | | + + + | Preferred Language | Unknown | + + + | Marital Status | | + + + | Holiness Affiliation | 1013 | + + + | Race | Unknown | + + + | Ethnic Group | Unknown | + + + Author + + + | Author | [facility] | | | and [place] | + + + | Organization | [facility] | | | [...] [place] | | | | | [address] | | + + + + + Care Team Providers + +------+ + | Care Teachers Aide Name | Role | Phone | + +------+ + | Jax Cabrera MD | PCP | | + +------+ + Reason for Visit + +--------+ + | Reason | Onset | Comments | | | Date | | + +--------+ + | Appointment | 04/07/ | | | | 2015 | | + +--------+ + Encounter Details +--------+ + + + + | Date | Type | Department | Care Team | Description | +--------+ + + + + | 04/07/ | Telephone | [facility] | Jax Cabrera MD | Appointment | | 2015 | | CARDIOLOGY [address] | [address] [facility] | | | | | [place], | [place], [place] | | | | | [place] [address] | [phone] | | | | | [phone] | | | +--------+ + + + [...] this encounter Miscellaneous Notes Telephone Encounter - Aracely Bernal - 04/08/2016 1:42 PM PSTCalled and spoke to patient , Dr. Medina appointment was scheduled on 04-15-16 at 1:30, patient's Echo was scheduled on 04-15-16 at 8:00. elephon e Encounter - Aracely Bernal - 04/07/2016 8:56 AM PSTNew Patient appointment ready to be scheduled with Dr. Medina. Patient was referred to Dr. Medina by his PCP, Dr. Cabrera, who, a lso, has submitted an order for patient to have an Echo, patient should have his Echo schedu led prior to his Dr. Medina appointment. Called patient to schedule both, but no answer and no VM option so will need to try later. 16 8:59 AM PSTdocumented in this encounter Plan of [...] [place] | | | | | | [id number] | | | | | | | | +--------+---------+ + + + documented as of this encounter Visit Diagnoses Not on filedocumented in this encounter"
--- OUTSIDE RECORDS SUMMARY | ~2019-11-25 | XMS | Encounter Summary ---
Demographics + + + | Address | [address] | | | [place] [address] | + + + | Home Phone | | + + + | Preferred Language | Unknown | + + + | Marital Status | | + + + | Denominational Affiliation | 1013 | + + + | Race | Unknown | + + + | Ethnic Group | Unknown | + + + Author + + + | Author | [facility] | | | and [place] | + + + | Organization | [facility] | | [...] [place] | | | | | [address] | | + + + + + Care Team Providers + +------+ + | Care Advertising Executive Name | Role | Phone | + +------+ + | Jax Cabrera MD | PCP | | + +------+ + Reason for Visit +--------+--------+ + | Reason | Onset | Comments | | | Date | | +--------+--------+ + | Other | 01/20/ | PRE-PROCEDURE CALL | | | 2019 | | +--------+--------+ + Encounter Details +--------+ + + + + | Date | Type | Department | Care Team | Description | +--------+ + + + + | 01/20/ | Telephone | [facility] | Teresita Lo, | Other (PRE-PROCEDURE | | 2019 | | GASTROENTEROLOGY | [address] | CALL) | | | | [address] | [place] [address] | | | | | [place], [place] | [phone] | | | | | [address] | | | | | | [phone] | | | +--------+ + + + [...] this encounter Miscellaneous Notes Telephone Encounter - Katy Schuler, Automation Engineering Manager - 01/23/2019 8:27 AM PDTTried c alling pt again at his number and at his spouse's phone. Every time the automated machine st ated [email or web address] phone is not accepting calls from this number. * will remove from view schedule * will call OR scheduling to cancel pt elephone Encounter - Katy Schuler Medical Assistant - 01/20/2019 4:13 PM PDTTried calling pt and his spouse. The automated machine stated the [employer] phone is not accepting calls from this number. * will send below information to pt through kchart Called patient and went over letter of instructions that was given to them here at the [facility]. - The week before do not eat anything containing nuts or seeds and no pills with iron. - The day before the procedure, clear liquid diet nothing red or purple and no dairy. Start prep in the evening @ 6pm. Continue liquids until bed time. - And then finish prep the morning of procedure. Following the detailed instructions given in clinic, given both verbally and written. 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 If any questions or concerns, please call our clinic at [phone]. * MORNING OF PROCEDURE PATIENT IS TO DRINK GOLYTELY PREP @ 2:30 A.M & NOTHING ELSE TO MARELY Bowen AFTER 4:00 A.M Procedure: EGD WITH COLONOSCOPY Procedure Date: 01/24/19 Procedure Time: 8:30 A.M Arrival time: 8:00 A.M Facility: [facility]: [address] [place] [address], NUMBER TO [place] E-REG #[phone] OPTION: 4 Provider: DR. LO Has pt pre-registered: docu mented in this encounter Plan of Treatment +--------+---------+ + + + | Date | Type | Specialty | Care Team | Description | +--------+---------+ + + + | 12/05/ | Office | Pain Medicine | Vitaliy Mendoza, | | | 2019 | Visit | | DO [address] | | | | | | [place] | | | | | | [address] | | | | | | | | +--------+---------+ + + + documented as of this encounter Visit Diagnoses Not on filedocumented in this encounter"
--- OUTSIDE RECORDS SUMMARY | ~2019-11-25 | XMS | Encounter Summary ---
Demographics + + + | Address | [address] | | | [place] [address] | + + + | Home Phone | | + + + | Preferred Language | Unknown | + + + | Marital Status | Unmarried Domestic Partner | + + + | Lutheran Affiliation | NON | + + + | Race | White | + + + | Ethnic Group | Not or | + + + Author + + + | Author | [facility] [employer] [facility] | + + + | Organization | [facility] | + + + | Address | Unknown | + + + | Phone | Unavailable | + + + Support + + + + + | Name | Relationship | Address | Phone | + + + + + | Gabriel Greenberg | ECON | [address] | | | | | [place] | | | | | [address] | | + + + + + Care Team Providers + +------+ + | Care Reserve Operator Name | Role | Phone | [...] + + | 04/13/ | Telephone | [facility] Primary Care | Krista Lo | Social work | | 2017 | | at [facility] | [address] | consultation (Issues | | | | [address] | [place], | with medical | | | | [address] [facility] | [place] [address] | records/practice) | | | | [place], [address] [place] [address] | | | | | | [place], [place] | | | | | | [address] | | | | | | [phone] | | | +--------+ + + + [...]
--- OUTSIDE RECORDS SUMMARY | ~2019-11-25 | XMS | Encounter Summary ---
Demographics + + + | Address | [address] | | | [place] [address] | + + + | Home Phone | | + + + | Preferred Language | Unknown | + + + | Marital Status | | + + + | Amish Affiliation | 1013 | + + + | Race | Unknown | + + + | Ethnic Group | Unknown | + + + Author + + + | Author | [facility] | | | and [place] | + + + | Organization | [facility] | | | [...] [place] | | | | | [address] | | + + + + + Care Team Providers + +------+ + | Care Planer Feeder Name | Role | Phone | + +------+ + PCP | Unavailable | + +------+ + Encounter Details +--------+ + + + + | Date | Type | Department | Care Team | Description | +--------+ + + + + | 07/15/ | Emergency | [facility] | Srinivasan, Dion S, | OTHER CONVULSIONS | | 2010 | | MEDICAL CENTER | [address] | ([facility]) | | | | EMERGENCY CENTER | [place], [place] | | | | | [address] | [address] | | | | | [place], [place] | | | | | | [address] | | | | | | [phone] | | | +--------+ + + + [...] [place] | | | | | | [address] | | | | | | | | +--------+---------+ + + + documented as of this encounter Visit Diagnoses + + | Diagnosis | + + | Other convulsions | + + documented in this encounter"
--- OUTSIDE RECORDS SUMMARY | ~2019-11-25 | XMS | Encounter Summary ---
Demographics + + + | Address | [address] | | | [place] [address] | + + + | Home Phone | | + + + | Preferred Language | Unknown | + + + | Marital Status | | + + + | Scientology Affiliation | 1013 | + + + [...] [place] | | | | | [address] | | + + + + + Care Team Providers + +------+ + | Care Roving Department End Finder Name | Role | Phone | + +------+ + PCP | Unavailable | + +------+ + Encounter Details +--------+ + + + + | Date | Type | Department | Care Team | Description | +--------+ + + + + | 01/12/ | Hospital | [facility] | Martin Kruse MD | OPEN WOUND LAT | | 2003 - | Encounter | CENTER SUR[facility] [address] | [address] | [facility] | | | | [address] | [address] [place], | | | 01/13/ | | [place], [place] | [place] [address] | | | 2003 | | [address] | [phone] | | | | | [phone] | | | +--------+ + + + [...] [place] | | | | | | [address] | | | | | | | | +--------+---------+ + + + documented as of this encounter Visit Diagnoses + + | Diagnosis | + + | Open wound of abdominal wall, lateral, complicated | + + documented in this encounter"
--- OUTSIDE RECORDS SUMMARY | ~2019-11-25 | XMS | Encounter Summary ---
Demographics + + + | Address | [address] | | | [place] [address] | + + + | Home Phone | | + + + | Preferred Language | Unknown | + + + | Marital Status | | + + + | Quaker Affiliation | 1013 | + + + | Race | Unknown | + + + | Ethnic Group | Unknown | + + + Author + + + | Author | [facility] | | | and [place] | + + + | Organization | [facility] | | | [...] [place] | | | | | [address] | | + + + + + Care Team Providers + +------+ + | Care Performance Test Architect Name | Role | Phone | + +------+ + | Jax Cabrera MD | PCP | | + +------+ + Encounter Details +--------+ + + + + | Date | Type | Department | Care Team | Description | +--------+ + + + + | 12/12/ | Orders Only | [facility] | Provider, | | | 2018 | | SYSTEM GENERIC OP | MD [address] | | | | | [address] | Karine Winkler | | | | | [address] [place], [place] | [place] [address] | | | | | [address] | | | | | | [phone] | | | +--------+ + + + [...] [place] | | | | | | [address] | | | | | | | | +--------+---------+ + + + documented as of this encounter Visit Diagnoses Not on filedocumented in this encounter"
--- OUTSIDE RECORDS SUMMARY | ~2019-11-25 | XMS | Encounter Summary ---
Demographics + + + | Address | [address] | | | [place] [address] | + + + | Home Phone | | + + + | Preferred Language | Unknown | + + + | Marital Status | Unmarried Domestic Partner | + + + | Samaritan Affiliation | NON | + + + | Race | White | + + + | Ethnic Group | Not or | + + + Author + + + | Author | [facility] | + + + | Organization | [facility] | + + + | Address | Unknown | + + + | Phone | Unavailable | + + + Support + + + + + | Name | Relationship | Address | Phone | + + + + + | Gabriel Greenberg | ECON | [address] | | | | | [place] | | | | | [address] | | + + + + + Care Team Providers + +------+ + | Care Sewing Inspector Name | Role | Phone | [...] | | | 2016 | | [facility] | MD Caio | | | | | [address] | [address] | | | | | [address] | [place], | | | | | [place], [address]rd floor | [place] [address] | | | | | [place], [place] | [phone] | | | | | [address] | | | | | | [phone] | | | +--------+ + + + [...]
--- OUTSIDE RECORDS SUMMARY | ~2019-11-25 | XMS | Encounter Summary ---
Demographics + + + | Address | [address] | | | [place] [address] | + + + | Home Phone [...] [place] | | | | | [address] | | + + + + + Care Team Providers + +------+ + | Care Goodyear Stitcher Name | Role | Phone | + +------+ + PCP | Unavailable | + +------+ + Encounter Details +--------+ + + + + | Date | Type | Department | Care Team | Description | +--------+ + + + + | 08/19/ | Emergency | [facility] | Iesha Estrada, | Other Convulsions | | 2009 | | MEDICAL CENTER | [address] | ([facility]) | | | | EMERGENCY CENTER | [place], [place] | | | | | [address] | [address] | | | | | [place], [place] | | | | | | [address] | | | | | | [phone] | | | +--------+ + + + [...] 2019 | Visit | | DO [address] | | | | | | [place] | | | | | | [address] | | | | | | | | +--------+---------+ + + + documented as of this encounter Procedures + +--------+ + + + | Procedure Name | Priori | Date/Time | Associated Diagnosis | Comments | | | ty | | | | + +--------+ + + + | CT HEAD WO CONTRAST | Routin | 08/19/2009 | | Results for this | | | e | 4:09 PM | | procedure are in the | | | | PDT | | results section. | + +--------+ + + + documented in this encounter Results CT Head wo Contrast (08/19/2009 4:09 PM PDT) + + | Specimen | + + | | + + + + + | Narrative | Performed At | + + + | [id number] [facility] | | | [facility] [address] | | | , RADIOLOGY | | | Patient Name: MAXIMO CHAVEZLINDY Manning Date of : 1965 | | | Medical Record: Account: [id number] EMR/ED [id number]/ | | | Exam Date/Time: 08/19/2009 03:25 P Ordering | | | Provider: IESHA ESTRADA Detail: [id number] / / HCT Exam | | | Description: CT HEAD UN | | | | | | CT HEAD UNENHANCED 08/19/2009 HISTORY Dizziness. COMPARISON | | | Prior study dated 10/04/2007 available for comparison. Report: No | | | acute process. FINDINGS The bony calvaria is unremarkable. No | | | lytic or blastic lesions are seen. No intraaxial or extraaxial fluid | | | or blood collections are seen. Orbits are unremarkable. | | | IMPRESSION Posterior fossa and other features of this examination are | | | unremarkable. Read by RAJI DEUTSCH MD 08/19/2009 04:30 P | | | Electronically Signed by RAJI DEUTSCH MD 08/20/2009 12:12 P | | | P A [facility]/[id number]/ | | | cc: PEDRO JACOBSEN MD PHYSICIAN SAMPSON Hannah | | | MD IESHA DEUTSCH MD | | + + + + + | Procedure Note | + + | El Reyes Conversion - 01/08/2019 4:04 PM PDT | | [id number] | | [facility] | | [facility] [address] | | , | | RADIOLOGY | | | | Patient Name: MICHAEL CHAVEZ | | Date of : 1965 | | Medical Record: [id number] | | Account: [id number] | | EMR/ED T1181/ | | | | | | Exam Date/Time: 08/19/2009 03:25 P | | Ordering Provider: IESHA ESTRADA | | Order Detail: [id number] / / HCT | | Exam Description: CT HEAD UN | | | | CT HEAD UNENHANCED 08/19/2009 | | | | HISTORY | | Dizziness. | | | | COMPARISON | | Prior study dated 10/04/2007 available for comparison. Report: No acute | | process. | | | | FINDINGS | | The bony calvaria is unremarkable. No lytic or blastic lesions are seen. | | No intraaxial or extraaxial fluid or blood collections are seen. | | | | Orbits are unremarkable. | | | | IMPRESSION | | Posterior fossa and other features of this examination are | | unremarkable. | | | | | | Read by | | RAJI DEUTSCH MD 08/19/2009 04:30 P | | Electronically Signed by | | RAJI DEUTSCH MD 08/20/2009 12:12 P | | | | P | | A | | ROSA/katie/[id number]/ | | cc: PEDRO JACOBSEN MD | | PHYSICIAN ED | | RAJI DEUTSCH MD | | IESHA ESTRADA MD | + + documented in this encounter Visit Diagnoses + + | Diagnosis | + + | Other convulsions | + + documented in this encounter"
--- OUTSIDE RECORDS SUMMARY | ~2019-11-25 | XMS | Encounter Summary ---
Demographics + + + | Address | [address] | | | [place] [address] | + + + | Home Phone [...] [place] | | | | | [address] | | + + + + + Care Team Providers + +------+ + | Care In Home Caregiver Name | Role | Phone | + +------+ + PCP | Unavailable | + +------+ + Encounter Details +--------+ + + + + | Date | Type | Department | Care Team | Description | +--------+ + + + + | 04/24/ | Hospital | [facility] | Woody Martinez | CHEST PAIN NOS | | 2002 | Encounter | CON[address] | MD Adrian [address] | | | | | [address] | [address] [place], | | | | | [place], [place] | [place] [address] | | | | | [address] | [phone] | | | | | [phone] | | | +--------+ + + + [...] [place] | | | | | | [address] | | | | | | | | +--------+---------+ + + + documented as of this encounter Visit Diagnoses + + | Diagnosis | + + | Chest pain, unspecified | + + documented in this encounter"
--- OUTSIDE RECORDS SUMMARY | ~2019-11-25 | XMS | Encounter Summary ---
Demographics + + + | Address | [address] | | | [place] [address] | + + + | Home Phone | | + + + | Preferred Language | Unknown | + + + | Marital Status | | + + + | Congregational Affiliation | 1013 | + + + | Race | Unknown | + + + | Ethnic Group | Unknown | + + + Author + + + | Author | [facility] | | | and [place] | + + + | Organization | [facility] | | | and [...] [place] | | | | | [address] | | + + + + + Care Team Providers + +------+ + | Care Accounts Collector Name | Role | Phone | + +------+ + | Jax Cabrera MD | PCP | | + +------+ + Reason for Visit + + + | Reason | Comments | + + + | New Patient | | + + + Evaluate & Treat (Routine) +--------+--------+ + + + + | Status | Reason | Specialty | Diagnoses / | Referred By | Referred To | | | | | Procedures | Contact | Contact | +--------+--------+ + + + + | Closed | | Cardiology | Diagnoses | Rick, | Carol, | | | | | Precordial | Jax Dubois MD | Owen | | | | | pain | [address] | MD Andrea | | | | | Congenital | [address] | [address] | | | | | heart | [place], | [place] | | | | | disease | [place] [address] | [place], [place] | | | | | Essential | Phone: | [phone] Phone: | | | | | hypertension | [phone] | [phone] | | | | | with goal | Fax: | Fax: | | | | | blood | [phone] | [phone] | | | | | pressure | | | | | | | less than | | | | | | | 140/90 | | | | | | | Procedures | | | | | | | MOLD RUNNER | | | +--------+--------+ + + + + Encounter Details +--------+---------+ + + + | Date | Type | Department | Care Team | Description | +--------+---------+ + + + | 04/15/ | Office | [facility] [place] | Owen Medina | Essential | | 2015 | Visit | CARDIOLOGY [address] | MD Andrea [address] | hypertension | | | | [address] [place], | [address] [place] | (Primary Dx); | | | | [place] [address] | [place] [address] | Cardiac murmur; | | | | [phone] | [phone] | Congenital heart | | | | | | disease; Seizure | | | | | | disorder (HCC) | +--------+---------+ + + + Social [...] + + + | Blood Pressure | 132/90 | 04/15/2016 2:41 PM | 152/92, RA | | | | PST | | + + + + + | Pulse | 66 | 04/15/2016 2:41 PM | regular | | | | PST | | + + + + + | Temperature | - | - | | + + + + + | Respiratory Rate | 18 | 04/15/2016 2:41 PM | | | | | PST | | + + + + + | Oxygen Saturation | - | - | | + + + + + | Inhaled Oxygen | - | - | | | Concentration | | | | + + + + + | Weight | 70.8 kg (156 lb) | 04/15/2016 2:41 PM | | | | | PST | | + + + + + | Height | 167.6 cm (5' 6") | 04/15/2016 2:41 PM | | | | | PST | | + + + + + | Body Mass Index | 25.18 | 04/15/2016 2:41 PM | | | | | PST | | + + + + + documented in this encounter Progress Notes Owen Medina MD - 04/15/2016 2:58 PM PSTFormatting of this note might be differe nt from the original. PATIENT NAME: Ivan Giles : 1965: AGE: 50 y.o. REFERRED BY: Jax Cabrera PRIMARY CARE: Jax Cabrera MD NEW PATIENT OFFICE VISIT Date of Service: 04/15/16 HISTORY OF PRESENT ILLNESS: Ivan Giles is a 50 y.o. male with a history of small VSD, hypertension, HIV, and aty pical chest pain. He is being seen today for further consultation. He is referred by Jax Cabrera for further evaluation to undergo assessment for auscultate d murmur and atypical chest pain and optimizing hypertensive therapy. He presents with his Gabriel. Upon initial presentation, patient had described ongoing sharp chest pain an d he was referred to the emergency department for further evaluation, where he ruled out for acute [place] and return back for further assessment. He had been noted previously to have a small muscular VSD and underwent stress perfusion im aging study on echocardiography 2009 in [place], the results of which are reviewed by me shana mcqueen. He denies any exertional symptoms and is moderately active. He has had long-standing h istory of HIV and has been on numerous antiviral regimens. He believes that his viral count is well-controlled and he has had no history of associated cardiomyopathy or dyslipidemia. CURRENT PROBLEMS Patient Active Problem List Diagnosis ASTHMA HYPERTENSION CARDIAC MURMUR VOMITING HEPATITIS C ABDOMINAL PAIN ABDOMINAL PAIN-EPIGASTRIC NAUSEA WITH VOMITING DEPRESSION OTHER SPECIFIED DISORDER OF INTESTINES HIV (human immunodeficiency virus infection) Congenital heart disease Seizure disorder MEDICAL, SURGICAL, AND PERSONAL HISTORY Past Surgical History Procedure Laterality Date Hiatal hernia repair Cholecystectomy Elbow surgery Right x2 Tonsillectomy Family History Problem Relation Age of Onset Alcohol abuse Mother Cancer Father Family Status Relation Status Age Mother Father Social History Social History Marital Status: Spouse Name: Enrique Fung" Number of Children: 0 Years of Education: N/A Social History Main Topics Smoking status: Never Smoker Smokeless tobacco: Never Used Alcohol Use: No Drug Use: No Comment: Quit 01/24/93 Sexual Activity: Not Asked Other Topics Concern None Social History Narrative Exercise: walking; biking Caffeine: 4 cups coffee daily Living situation: with spouse CURRENT MEDICATIONS Current Outpatient Prescriptions Medication Sig Dispense Refill albuterol-ipratropium (COMBIVENT) 103-18 mcg/puff inhaler Inhale 2 puffs into the lungs every 6 hours as needed for Wheezing. Dexlansoprazole (DEXILANT) 60 MG CPDR Take 60 mg by mouth Daily. (Patient taking differ ently: Take 60 mg by mouth Daily as needed.) divalproex (DEPAKOTE) 250 mg EC tablet Take 250 mg by mouth Daily. DULoxetine (CYMBALTA) 30 mg capsule Take 30 mg by mouth Daily. (Patient taking differen tly: Take 60 mg by mouth Daily.) Emtricitabine-Tenofovir (TRUVADA PO) TABS: one tablet daily loratadine (GNP LORATADINE) 10 mg tablet Take 10 mg by mouth Daily. nitroglycerin (NITROSTAT) 0.[address] 0.4 mg under the tongue every 5 minute s as needed for Chest pain. ondansetron (ZOFRAN) 4 mg tablet Take 4 mg by mouth every 8 hours as needed. oxyCODONE (OXYCONTIN) 10 mg ER abuse-deterrent tablet Take 10 mg by mouth as needed for Pain. pregabalin (LYRICA) 150 MG capsule Take 150 mg by mouth Daily. salmeterol (SEREVENT DISKUS) 50 mcg/puff diskus inhaler Inhale 1 puff into the lungs as needed. SUMAtriptan (IMITREX) 100 mg tablet Take 100 mg by mouth as needed. telmisartan (MICARDIS) 80 MG tablet Take 80 mg by mouth Daily. traZODone (DESYREL) 100 mg tablet Take 100 mg by mouth nightly. No current facility-administered medications for this visit. ALLERGIES Allergies Allergen Reactions Phenytoin Diarrhea ROS Review of Systems Constitutional: Positive for malaise/fatigue. Negative for fever, chills, weight loss and d iaphoresis. HENT: Negative for congestion, hearing loss, nosebleeds and tinnitus. Eyes: Positive for blurred vision. Negative for double vision. Respiratory: Positive for shortness of breath. Negative for cough. Cardiovascular: Positive for chest pain, palpitations and claudication. Negative for leg sw elling. Gastrointestinal: Positive for nausea. Negative for heartburn, vomiting, abdominal pain, di arrhea, constipation and blood in stool. Genitourinary: Negative for dysuria, urgency, frequency and hematuria. Musculoskeletal: Positive for back pain and falls (Seizures). Negative for myalgias, joint pain and neck pain. Skin: Negative for itching and rash. Neurological: Positive for dizziness, tingling, seizures (Seizure Disorder), loss of consci ousness and headaches. Negative for tremors, speech change and weakness. Endo/Heme/Allergies: Does not bruise/bleed easily. Psychiatric/Behavioral: The patient is nervous/anxious and has insomnia. OBJECTIVE: PHYSICAL EXAM BP 132/90 mmHg | Pulse 66 | Resp 18 | Ht 1.676 m (5' 6") | Wt 70.761 kg (156 lb) | BMI 25.1 9 kg/m2 Physical Exam Constitutional: He is oriented to person, place, and time. He appears well-developed and we ll-nourished. HENT: Head: Normocephalic. Eyes: No scleral icterus. Neck: Normal carotid pulses and no JVD present. Carotid bruit is not present. Cardiovascular: Normal rate, regular rhythm, S1 normal, S2 normal, intact distal pulses and normal pulses. PMI is not displaced. Exam reveals no gallop and no midsystolic click. Murmur heard. Harsh holosystolic murmur is present with a grade of 2/6 at the lower left sternal border radiating to the lower right sternal border Pulses: Carotid pulses are 2+ on the right side, and 2+ on the left side. Femoral pulses are 2+ on the right side, and 2+ on the left side. Dorsalis pedis pulses are 2+ on the right side, and 2+ on the left side. Posterior tibial pulses are 2+ on the right side, and 2+ on the left side. Pulmonary/Chest: Effort normal and breath sounds normal. No accessory muscle usage. No resp iratory distress. He has no wheezes. He has no rhonchi. He has no rales. Abdominal: Soft. Normal aorta and bowel sounds are normal. He exhibits no abdominal bruit. There is no hepatosplenomegaly. There is no tenderness. Musculoskeletal: He exhibits no edema. Neurological: He is alert and oriented to person, place, and time. Gait normal. Skin: Skin is warm and dry. No cyanosis. Nails show no clubbing. Psychiatric: He has a normal mood and affect. His mood appears not anxious. He does not exh ibit a depressed mood. Vitals reviewed. ECG: Reviewed by me today shows normal sinus rhythm, heart rate 66, underlying criteria fo r LVH. LAB RESULTS: LIPID No results found for: CHOL, TRIG, HDL, LDL, CHOLHDL, LDLEX, HDLEX, TRIGEX, CHOLEX CHEMISTRY Lab Results Component Value Date GLU 101 04/15/2016 NA 136 04/15/2016 K 3.6 04/15/2016 CL 104 04/15/2016 CO2 23* 04/15/2016 CALCIUM 9.5 04/15/2016 ALKPHOS 70 04/15/2016 AST 23 04/15/2016 ALT 16 04/15/2016 BILITOT 0.8 04/15/2016 CREA 0.85 04/15/2016 BUN 13 04/15/2016 EGFR >60 05/19/2011 HEMATOLOGY Lab Results Component Value Date WBC 3.5* 04/15/2016 HGB 14.3 04/15/2016 HCT 41.5 04/15/2016 PLT 155 04/15/2016 I reviewed records from PCP for office visit on 04/03/16. Nuclear stress perfusion imaging study 2010 results reviewed by me with the patient today n egative for significant coronary ischemia, LVEF 55%. Echocardiogram 2010 results reviewed by me with the patient today notable for small muscula r VSD with tvev-tl-gnhbu shunting, preserved LV systolic function, LVEF 65%, no significant valvular disease. Echocardiogram today 2016 results interpreted and reviewed by me with the patient today not able for normal LV size and systolic function, small muscular VSD, no significant valvular d isease. ASSESSMENT: 1. VSD - this has been diagnosed at least 6 years ago without any change on patient's echo cardiogram today. This is obviously the cause of the auscultated murmur. Does not appear t o result in any clinical sequelae. Patient may benefit from repeat noninvasive assessment i n the future. 2. Atypical chest pain - patient's only coronary disease risk factor appears to be hyperte nsion. He ruled out for acute [place] today in the ED. He had a low-risk stress perfusion imagi ng study previously. There is no indication for further cardiovascular diagnostics at this point pending significant clinical changes. 3. Hypertension - patient describes suboptimal response to increasing doses of telmisartan . We will treat him with additional therapy with amlodipine beginning at 5 mg daily. 4. Risk assessment - we will have the patient undergo a fasting lipid profile study prior to his next visit next year. PLAN: 1. Additional therapy with amlodipine. Otherwise continue current medications. 2. Check fasting lipid profile. 3. Repeat echocardiogram in the future. 4. Follow-up visit with me next year, or sooner if clinically indicated. Portions of this report were transcribed using voice recognition software. Every effort wa s made to ensure accuracy; however, inadvertent computerized jockey's agent errors may be pre sent. Electronically signed by: Anders Medina MD PhD FACC 04/15/2016 documented in this encounter Miscellaneous Notes Addendum Note - Romy Sabillon RN - 04/16/2016 10:58 AM PST Addended by: ROMY SABILLON on: 04/16/2016 10:58 Modules accepted: Orders documented in this encounter Plan of Treatment [...] [place] | | | | | | [id number] | | | | | | | | +--------+---------+ + + + documented as of this encounter Visit Diagnoses + + | Diagnosis | + + | Essential hypertension - Primary Unspecified essential hypertension | + + | Cardiac murmur Undiagnosed cardiac murmurs | + + | Congenital heart disease Unspecified congenital anomaly of heart | + + | Seizure disorder (HCC) Unspecified epilepsy without mention of intractable epilepsy | + + documented in this encounter
--- OUTSIDE RECORDS SUMMARY | ~2019-11-25 | XMS | Encounter Summary ---
Demographics + + + | Address | [address] | | | [place] [address] | + + + | Home Phone [...] [place] | | | | | [address] | | + + + + + Care Team Providers + +------+ + | Care Slate Worker Name | Role | Phone | + +------+ + | Jax Cabrera MD | PCP | | + +------+ + Reason for Visit + +--------+ + | Reason | Onset | Comments | | | Date | | + +--------+ + | Follow-up | 04/04/ | | | | 2018 | | + +--------+ + Encounter Details +--------+ + + + + | Date | Type | Department | Care Team | Description | +--------+ + + + + | 04/04/ | Telephone | [facility] | Nataly Caballero, | Follow-up | | 2019 | | INTERVENTIONAL PAIN | RN | | | | | [facility] [address] | | | | | | [address] [place], | | | | | | [place] [address] | | | | | | [phone] | | | +--------+ + + + [...] this encounter Miscellaneous Notes Telephone Encounter - Nataly Caballero RN - 04/04/2019 2:10 PM PSTAttempted to contact thea johnson by calling both numbers available, the first number is disconnected, the second number stated the number has restrictions that don't allow the call the continue. No option to [facility]. Nataly Caballero RN documented in this en counter Plan of Treatment +--------+---------+ + + + | Date | Type | Specialty | Care Team | Description | +--------+---------+ + + + | 12/05/ | Office | Pain Medicine | Vitaliy Mendoza, | | | 2019 | Visit | | DO [address] | | | | | | [place] | | | | | | [id number] | | | | | | | | +--------+---------+ + + + documented as of this encounter Visit Diagnoses Not on filedocumented in this encounter"
--- OUTSIDE RECORDS SUMMARY | ~2019-11-25 | XMS | Encounter Summary ---
Demographics + + + | Address | [address] | | | [place] [address] | + + + | Home Phone | | + + + | Preferred Language | Unknown | + + + | Marital Status | | + + + | Advent Affiliation | 1013 | + + + [...] [place] | | | | | [address] | | + + + + + Care Team Providers + +------+ + | Care Order Schedule Clerk Name | Role | Phone | + +------+ + PCP | Unavailable | + +------+ + Encounter Details +--------+ + + + + | Date | Type | Department | Care Team | Description | +--------+ + + + + | 06/21/ | Hospital | [facility] | Conversion | ANISOCORIA | | 2001 | Encounter | CONVERSION [address] | Transaction, | | | | | [address] | Provider Unknown | | | | | [facility] [place] | [phone] | | | | | [address] | | | | | | [phone] | | | +--------+ + + + [...] [place] | | | | | | [address] | | | | | | | | +--------+---------+ + + + documented as of this encounter Visit Diagnoses + + | Diagnosis | + + | Anisocoria | + + documented in this encounter"
--- OUTSIDE RECORDS SUMMARY | ~2019-11-25 | XMS | Encounter Summary ---
Demographics + + + | Address | [address] | | | [place] [address] | + + + | Home Phone [...] Author + + + | Author | [facility] [employer] [facility] | + + + | Organization | [facility] | + + + | Address | Unknown | + + + | Phone | Unavailable | + + + Support + + + + + | Name | Relationship | Address | Phone | + + + + + | Gabriel Greenberg | ECON | [address] | | | | | [place] | | | | | [address] | | + + + + + Care Team Providers + +------+ + | Care Transplant Surgeon Name | Role | Phone | + [...] + + | 04/07/ | Telephone | [facility] Primary Care | Fred, | Lab Results | | 2017 | | at [facility] | MD Caio | | | | | [address] [place] | [address] | | | | | Loop Physician's | [place] [facility], | | | | | Pavilion, 3rd floor | [place] [address] | | | | | [place], [place] | [phone] | | | | | [address] | | | | | | [phone] | | | +--------+ + + + [...]
--- OUTSIDE RECORDS SUMMARY | ~2019-11-25 | XMS | Encounter Summary ---
Demographics + + + | Address | [address] | | | [place] [address] | + + + | Home Phone | | + + + | Preferred Language | Unknown | + + + | Marital Status | | + + + | Congregation Affiliation | 1013 | + + + | Race | Unknown | + + + | Ethnic Group | Unknown | + + + Author + + + | Author | [facility] | | | and [place] | + + + | Organization | [facility] | | [...] [place] | | | | | [address] | | + + + + + Care Team Providers + +------+ + | Care Industrial Laborer Name | Role | Phone | + +------+ + PCP | Unavailable | + +------+ + Encounter Details +--------+ + + + + | Date | Type | Department | Care Team | Description | +--------+ + + + + | 01/29/ | Hospital | [facility] | Ed Canada MD | | | 2007 | Encounter | [facility] | [address] | | | | | GENERIC CONV DEPT | [address] [place] | | | | | [address] | [phone] | | | | | [place] | (Fax) | | | | | [address] | | | | | | [phone] | | | +--------+ + + + [...] + + documented as of this encounter Procedure Ed Rod MD - 03/22/2013 2:19 PM PSTName: Ivan Giles Date of Study: 01/30/2008 Test #: [id number] Age: 42 Date of Bi rth: 1965 Sex: M Referring Physician: Ed Canada MD Reason for Study: Seizures. Sedation: None. Medication: Topamax, Depakote and others. This EEG was performed according to the 2006 AEEGS guidelines with 21 channels recorded, i ncluding respiratory, EOG and EKG monitors. He was sleep deprived. Mental Status: Alert and drowsy. Last Meal: Unknown. Hyperventilation: Not performed. Photic Stimulation (St epwise and Glissando): Standard. DESCRIPTION: The background rhythm during wakefulness was a very well regulated 10 to 11 Hz rhythmic activity that was symmetric over the posterior head regions and attenuated with eye opening. Widespread slowing and attenuation of the background activity occurred d uring brief drowsiness. The patient did not fall asleep during the course of this recordi ng. Photic stimulation resulted in symmetric occipital driving. No focal slowing or definite epileptiform activity occurred. IMPRESSION: Normal EEG. Ed Canada MD P JMW/all #[id number] cc: Ed Canada MD Digitally authenticated 02/10/08 1626 Ed Canada MD JAY GILES Nigel [id number] [facility] CLI EEG REPORT [id number] ELECTRONEURODIAGNOSTIC LABORATORY Ed jovel MD E-Sign: [facility] THIS REPORT IS CONFIDENTIAL AND NOT TO BE RELEASED WITHOUT PROPER AUTHORIZATION.Electronica lly signed by Ed Canada MD at 03/23/2013 10:55 PM PSTdocumented in this encounter Plan of [...] [place] | | | | | | [address] | | | | | | | | +--------+---------+ + + + documented as of this encounter Visit Diagnoses Not on filedocumented in this encounter"
--- OUTSIDE RECORDS SUMMARY | ~2019-11-25 | XMS | Encounter Summary ---
Demographics + + + | Address | [address] | | | [place] [address] | + + + | Home Phone | | + + + | Preferred Language | Unknown | + + + | Marital Status | | + + + | Yazidi Affiliation | 1013 | + + + | Race | Unknown | + + + | Ethnic Group | Unknown | + + + Author + + + | Author | Formerly [facility] | | | and [place] | + + + | Organization | [facility] | | [...] [place] | | | | | [address] | | + + + + + Care Team Providers + +------+ + | Care Technical Rep Name | Role | Phone | + +------+ + | Jax Cabrera MD | PCP | | + +------+ + Encounter Details +--------+ + + + + | Date | Type | Department | Care Team | Description | +--------+ + + + + | 12/06/ | Emergency | [facility] | Benji Zheng MD | DDD (degenerative | | 2019 | | MEDICAL CENTER | [address] | disc disease), | | | | EMERGENCY CENTER | [place] [address] | cervical; Cervical | | | | [address] | [phone] | radicular pain; | | | | [place], [place] | | Acute pain of right | | | | [address] | | shoulder | | | | [phone] | | | +--------+ + + + [...] + + + | Blood Pressure | 173/97 | 12/06/2018 3:21 PM | | | | | PDT | | + + + + + | Pulse | 64 | 12/06/2018 3:21 PM | | | | | PDT | | + + + + + | Temperature | 36.3 C (97.4 F) | 12/06/2018 3:21 PM | | | | | PDT | | + + + + + | Respiratory Rate | 16 | 12/06/2018 3:21 PM | | | | | PDT | | + + + + + | Oxygen Saturation | - | - | | + + + + + | Inhaled Oxygen | - | - | | | Concentration | | | | + + + + + | Weight | 70.8 kg (156 lb) | 12/06/2018 3:21 PM | | | | | PDT | | + + + + + | Height | - | - | | + + + + + | Body Mass Index | 25.18 | 12/06/2018 10:21 AM | | | | | PDT | | + + + + + documented in this encounter Medications at Time [...] documented as of this encounter ED Notes Conversion Transaction, Provider Unknown - 12/06/2018 2:13 PM PDTFormatting of this note m ight be different from the original. ED Notes by Joanne Quintana RN at 12/06/181412 Author: Joanne Quintana RN Service: (none) Author Type: Registered Nurse Filed: 12/06/181412 Date of Service: 12/06/181412 Status: Signed Electronic Page Makeup System Operator: Joanne Quintana RN (Registered Nurse) Pt remains in imaging. Joanne Quintana RN 12/06/181412 onver martine Transaction, Provider Unknown - 12/06/2018 2:04 PM PDT ED Notes by Nidia Kirby at 12/06/18 1404 Author: Nidia Kirby Service: (none) Author Type: Pool Coordinator Filed: 12/06/18 1405 Date of Service: 12/06/18 140 Status: Signed Electronic Page Makeup System Operator: Nidia Kirby (Pool Coordinator) Patient remains in MRI. Unable to obtain vitals at this time Nidia Kirby 12/06/18 1405 onver martine Transaction, Provider Unknown - 12/06/2018 1:48 PM PDT ED Notes by Joanne Quintana RN at 12/06/18 1348 Author: Joanne Quintana RN Service: (none) Author Type: Registered Nurse Filed: 12/06/18 134 Date of Service: 12/06/181347 Status: Signed Electronic Page Makeup System Operator: Joanne Quintana RN (Registered Nurse) Notified by MRI pt unable to tolerate scan d/t pain. Pt medicated with PRN orders. Joanne Quintana RN 12/06/187 Cosmo White PA-C - 12/06/2018 1:25 PM PDT ED Provider Notes by Cosmo Pathak PA-C at 12/06/18 1325 Author: Cosmo Pathak PA-C Service: Emergency Department Author Type: Physician Kaylin valero - Certified Filed: 12/06/18 1524 Date of Service: 12/06/18 1325 Status: Attested Electronic Page Makeup System Operator: Cosmo Pathak PA-C (Physician Staff Reporter - Certified) Cosigner: Benji davis MD at 12/06/18 1706 Attestation signed by Benji Zheng MD at 12/06/18 170 I was available in real time for consultation in supervision of the APC. Procedures [facility] History of Present Illness Patient Identification Ivan Giles is a 53 y.o. male. Patient information was obtained from patient. History/Exam limitations: none. Patient presented to the Emergency Department by: Car Chief Complaint Chief Complaint Patient presents with Shoulder Pain started one week ago, unsure why he is having pain, right shoulder pain, neck pain, state s he was here to have MRI done today and couldn't tolerate it. sees dr. hare for pain ma nagement. Neck Pain The patient is a 53 y.o. male with history of degenerative disc disease presenting for neck pain and shoulder pain. Onset of symptoms was 1 week ago, with a worsening course since michael t time. Patient also complains of numbness that radiates down his right arm to the third fo urth and fifth digits of the right hand. The symptoms are described to be of severe severit y. The patient describes the quality and location of the symptoms as the following: Patient states that he woke up with neck pain and right shoulder pain 1 week ago that has progressi vely been getting worse. He has been seen in [place] ED as well as his primary care provi marily. X-ray imaging of the shoulder and MRI imaging of his cervical spine was ordered and sc heduled for today. He had shoulder x-rays completed but patient states the pain was too muc h to sit in the MRI machine to tolerate. MRI was canceled due to uncontrollable pain and delfin wallace was sent to ED for pain control. Pertinent negatives: Patient denies trauma, fever, saddle paresthesias, bowel or bladder re tention or incontinence, weakness, abdominal pain, urinary symptoms, history of cancer, IV d rug use or insulin use. Past Medical History Diagnosis Date Asthma Gastroesophageal reflux disease 12/06/2018 Hepatitis B 01/25/14 Hepatitis C 2002 HIV infection (HCC) 1988 Hypertension IBS (irritable bowel syndrome) Joint pain Neuromuscular disorder (HCC) Other chronic pain back pain Precordial pain 06/29/2018 Seizures (HCC) Past Surgical History Procedure Laterality Date CAUDAL BLOCK 05-27-12 Caudal w/ cath target Bilat L5, S1 CAUDAL BLOCK 07-05-12 Caudal w/ cath target Bilat L5, S1 CAUDAL BLOCK Bilateral 09/20/2018 Caudal w/cath target bilateral L4,L5,S1 CHOLECYSTECTOMY COLONOSCOPY 2016 EPIDURAL STEROID INJECTION 01-25-2014 caudal w/cath target Right L5,S1 HERNIA REPAIR hiatal LUMBAR EPIDURAL INJECTION 03-15-12 Bilat L5 TFESI (at [facility]) SACROILIAC JOINT INJECTION 06-01-13 Right SACROILIAC JOINT INJECTION 11/02/2013 Bilat SACROILIAC JOINT INJECTION Bilateral 07/29/2018 TONSILLECTOMY UNLISTED PROCEDURE ARTHROSCOPY UPPER GASTROINTESTINAL ENDOSCOPY 2002 Prior to Admission medications Medication Sig Start Date End Date Taking? Authorizing Provider albuterol (PROVENTIL HFA;VENTOLIN HFA) 108 (90 Base) MCG/ACT inhaler Inhale into the lungs . 06/17/16 Historical Provider amLODIPine (NORVASC) 5 MG tablet Take 5 mg by mouth. 04/16/16 Historical Provider cyclobenzaprine (FLEXERIL) 10 MG tablet Take 10 mg by mouth 3 (three) times daily as needed for Muscle spasms. Historical Provider dexlansoprazole (DEXILANT) 60 MG capsule Take 1 capsule by mouth every morning before break fast. 11/09/18 LEIA Patterson dicyclomine (BENTYL) 10 MG capsule Take 1 capsule by mouth 4 (four) times daily as needed. 11/09/18 11/09/19 LEIA Patterson diphenoxylate-atropine (LOMOTIL) 2.5-0.025 MG per tablet Take 1 tablet by mouth 4 (four) ti mes daily as needed for Diarrhea. 11/09/18 11/09/19 LEIA Patterson divalproex (DEPAKOTE) 250 MG 24 hr tablet Take 500 mg by mouth 2 (two) times daily. Hist orical Provider dolutegravir sodium (TIVICAY) 50 MG tablet Take 100 mg by mouth daily. Historical Provid er emtricitabine-tenofovir DF (TRUVADA) 200-300 MG per tablet Take 1 tablet by mouth daily. Historical Provider fluticasone furoate-vilanterol (BREO ELLIPTA) 100-25 mcg/inh inhaler Inhale 1 puff into the lungs daily. Historical Provider HYDROcodone-acetaminophen (NORCO) 5-325 MG per tablet 12/01/18 Historical Provider hydrOXYzine (ATARAX) 25 MG tablet Take 25 mg by mouth 3 (three) times daily as needed for I tching. Historical Provider ipratropium-albuterol (COMBIVENT RESPIMAT) 20-100 MCG/ACT inhaler Inhale 1 puff into the tammy ngs 4 (four) times daily. 07/04/18 07/04/19 Bill Villarreal MD loratadine (CLARITIN) 10 MG tablet Take 10 mg by mouth daily as needed. Historical Provi marily methylPREDNISolone 4 MG dose pack Take by mouth. Follow package directions. Historical Provider pregabalin (LYRICA) 150 MG capsule Take 150 mg by mouth 2 (two) times daily. Historica l Provider sumatriptan (IMITREX) 100 MG tablet Take 100 mg by mouth as needed for Migraine. May repeat dose in 2 hours if no relief. Do not exceed 2 doses in 24 hours. Historical Provider telmisartan-hydrochlorothiazide (MICARDIS HCT) 80-12.5 MG per tablet Take 1 tablet by mouth daily. Historical Provider trazodone (DESYREL) 100 MG tablet Take 100 mg by mouth nightly. Historical Provider Allergies Allergen Reactions Dilantin [Phenytoin] Diarrhea and Other (See Comments) h/a h/a Neurontin [Gabapentin] Visual Disturbance and Other (See Comments) Loss of memory, headache Loss of memory, headache Loss of memory, headache Ritonavir Other (See Comments) Morphine Nausea and Vomiting Social History Social History Marital status: Spouse name: N/A Number of children: N/A Years of education: N/A Occupational History Not on file. Social History Main Topics Smoking status: Never Smoker Smokeless tobacco: Never Used Alcohol use No Drug use: No Comment: not for 19 years Sexual activity: Not on file Other Topics Concern Not on file Social History Narrative No narrative on file Family History Problem Relation Age of Onset Cancer Mother Diabetes type II Mother Cancer Father Diabetes type II Father ROS Review of Systems Constitutional: Negative for: fever, chills, fatigue, sweats or weight loss Cardiovascular/Respiratory: Negative for: chest pain, shortness of breath, cough Gastrointestinal: Negative for: abdominal pain, vomiting, diarrhea, black or bloody stools Genitourinary: Negative for: dysuria, hematuria, urinary problems Musculoskeletal: Positive for: Neck pain, right shoulder pain Negative for: trauma Skin: Negative for: rash Neuro and psych: Negative for: fainting, head injury, seizure Endocrine/Heme/Lymph: Negative for: swollen lymph nodes, easy bruising All other systems reviewed and negative Physical Exam BP (!) 179/116 (BP Location: Right upper arm) | Pulse 83 | Temp 97.2 F (36.2 C) (Skin ) | Resp 18 | Wt 70.8 kg (156 lb) | SpO2 99% | BMI 25.18 kg/m Pulse Oximetry interpretation: Normal Vital Signs Reviewed: normal General: Alert, in no apparent distress Eyes: Normal inspection, pupils equal and round, non-icteric Neck: Limited range of motion due to pain. Pain with rotation and to the right side. Right-sided neck and shoulder very tender to palpation. No meningismus Cardiovascular: Rate and rhythm normal No murmurs Respiratory: Breath sounds normal bilaterally Abdomen: Soft, non-tender, non-distended No guarding or rebound Genitourinary: Deferred Rectal exam: Deferred Back: Normal inspection, no deformities or step offs on palpation, No CVAT MSK: Patient unable to lift right arm above nipple line. Patient refused full shoulder exam due to pain. Skin: Color normal Warm and dry No rash or vesicular lesions Neuro: No motor deficit, normal and equal strength in all 4 extremities Reflexes: L4 patellar reflexes - 2+ and equal L5 great toe dorsiflexion - intact bilaterally S1 achilles reflex - 2+ and equal Negative straight leg raise and crossed test bilaterally No sensory deficit, normal sensation to light touch Normal gait Medical Decision Making and Emergency Department Course ED Department Course 1300: Patient is a 53 y.o. male presenting with neck pain pain. Differential diagnosis incl udes, but is not limited to: strain, sprain, fracture, cauda equina syndrome, torticollis, c ervical spondylosis, cervical stenosis, cancer, epidural abscess, vertebral osteomyelitis, t ransverse myelitis, cervical disc herniation, trauma vs other. Will proceed with symptomatic relief and reschedule MRI. Case discussed with Dr. Zheng. MRI results reviewed: 1. There does appear to be interval progression in dextro scoliosis cervicothoracic spine apex toward the right at C5. 2. At C3-C4 there has been interval progression in now moderate to severe left foraminal stenosis and moderate left-sided degenerative facet arthropathy. 3. At C4-C5 there has been interval progression in now severe left-sided degenerative facet arthropathy with severe left foraminal stenosis. 4. At C5-C6 there has been interval progression in now severe left-sided degenerative facet arthropathy with severe left-sided foraminal stenosis. 5. At C6-C7 there is moderate to severe left-sided foraminal stenosis which has worsened. 6. At C7-T1 there has been interval progression in moderate to severe left-sided foraminal stenosis. 7. There is a new small central fluid collection within the thoracic spinal cord at the T4 level which measures 2 mm transversely and 6 mm superior inferior. 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 This could be further assessed and characterized with dedicated thoracic spine MRI scan without and with contrast if clinically warranted. No definite spinal cord edema, mass, or compression at this level. 1505: Discussed patient with LEIA Stephenson who saw patient in outpatient earlier toda y and was the original provider who ordered the MRI.. She reviewed the MRI and recommends t hat we treat patient for pain and have her follow-up with her in the outpatient setting. 1515: Discussed results with patient. I discussed the conversation with patient's PCP info rmed him that their office will likely reach out to them tomorrow. I plan of pain managemen t with oral [place]. I discussed signs and symptoms that warrant return to the emergency depa rtment. Patient voiced understanding of plan and had no questions. Patient was noted to have elevated blood pressure during ED visit. This may be an incidenta l finding. Possibly related to pain, stressful situation, and overall discomfort by ED visit . Patient will need to follow-up with their PCP or referral provider. It is unclear if thi s is consistent with actual treatable HTN or again just secondary to stressful ED visit. Delfin wallace has been given written instructions for need for follow-up and timeframe within 4 week s maximum. MDM At this time, patient does not have any red flags or exam findings consistent with emergent life or limb-threatening conditions. I have considered emergent conditions including epidur al spinal abscess, cord compression syndromes or cauda equina syndrome, aortic dissection, a nd others, but feel this is unlikely at this time. We discussed supportive care, including activity modification, rest, ice or heat, gentle st retching as tolerated, and Rx for [place]. Patient instructed to follow up with primary care i f symptoms persist, and we discussed return precautions including signs or symptoms of the a nickie emergent conditions. I have discussed my clinical impression and treatment plan with the patient/guardians. We jese hui specifically discussed the signs and symptoms that would constitute the need for an imme diate return to the Emergency Department, the importance of continued outpatient follow up a nd further testing (if deemed necessary by the patient's regular doctor) and the importance of compliance with the discharge instructions. I have answered any questions that the patien t has to the best of my ability. Based upon the patient s history, physical exam, emergenc y department course, and any laboratory and diagnostic studies which may have been performed , I feel that there is no current emergent medical condition that warrants admission, transf er, or further emergency department treatment at this time. Dictation software, [employer], is used. Sound-alike errors may be present. If there is any laurent bt, please refer to provider for clarification. Records Reviewed Old medical records. Nursing notes. Labs & Radiology Results Radiology and EKG Evaluation Imaging Results MRI C-Spine without contrast (Final result) Result time 12/06/18 14:44:31 Final result by Jonh Mcgarry MD (12/06/18 14:44:31) Impression: 1. There does appear to be interval progression in dextro scoliosis cervicothoracic spine apex toward the right at C5. 2. At C3-C4 there has been interval progression in now moderate to severe left foraminal stenosis and moderate left-sided degenerative facet arthropathy. 3. At C4-C5 there has been interval progression in now severe left-sided degenerative facet arthropathy with severe left foraminal stenosis. 4. At C5-C6 there has been interval progression in now severe left-sided degenerative facet arthropathy with severe left-sided foraminal stenosis. 5. At C6-C7 there is moderate to severe left-sided foraminal stenosis which has worsened. 6. At C7-T1 there has been interval progression in moderate to severe left-sided foraminal stenosis. 7. There is a new small central fluid collection within the thoracic spinal cord at the T4 level which measures 2 mm transversely and 6 mm superior inferior. 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 This could be further assessed and characterized with dedicated thoracic spine MRI scan without and with contrast if clinically warranted. No definite spinal cord edema, mass, or compression at this level. Signed by: Lu Mcgarry Richard Sign Date/Time: 12/06/2018 2:44 PM Narrative: MRI CERVICAL SPINE WITHOUT CONTRAST CLINICAL INFORMATION: Cervicalgia. COMPARISON: MRI CERVICAL SPINE WO CONTRAST (04/12/2012); CT SOFT TISSUE NECK W CONTRAST (07/02/2018); PROCEDURE: Sagittal T2, axial T2, sagittal T1, axial T1, sagittal STIR. FINDINGS: Levo scoliosis of the cervical spine apex toward the right at C5. There is reversal of cervical lordosis C5-T1. There is moderate degenerative disease at C4-C5, C5-C6 and C6-C7. Cervical spinal cord is without definite evidence of signal abnormality, compression or mass. There is a small focal fluid collection within the central aspect of the thoracic spinal cord at T4 which measures 2 mm transversely and 6 mm superior inferior. 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 This is new from the prior study C2-C3: No significant disc protrusion or canal stenosis. Ewil-nt-dwhummbt left greater than right degenerative facet arthropathy. Mild right foraminal stenosis. C3-C4: Mild disc bulge with moderate left and mild right degenerative facet arthropathy. No significant canal stenosis or cord compression. Moderate to severe left foraminal stenosis. Findings have progressed. C4-C5: Mild diffuse disc bulge/osteophyte complex without significant canal stenosis or cord compression. There is severe left-sided degenerative facet arthropathy with severe left foraminal stenosis. Findings have progressed. C5-C6: There is moderate to severe left degenerative facet arthropathy which has progressed. There is severe left foraminal stenosis which is worsened minimal disc bulge without canal stenosis or cord compression C6-C7: Mild left greater than right degenerative facet arthropathy has mildly progressed. No focal disc protrusion, canal stenosis or cord compression moderate to severe left foraminal stenosis has worsened C7-T1: Mild disc bulge with a small right paracentral disc protrusion is stable. No significant canal stenosis or cord compression mild bilateral facet arthropathy. Moderate to severe left foraminal stenosis has worsened. There is mild right foraminal stenosis. Diagnosis & Disposition ED Diagnoses Final diagnoses DDD (degenerative disc disease), cervical Cervical radicular pain Acute pain of right shoulder Disposition: ED Disposition ED Disposition Condition Comment Orders Discharge Stable Follow-up Information Follow up With Specialties Details Why Contact Info LEIA Bartlett Nurse Practitioner, Pain Medicine - Pain Medicine Schedule an appoin tment as soon as possible for a visit [address] [place] [address] [address] CULLEN [facility] [phone] [facility] Emergency Department Emergency Medicine As needed, If symp toms worsen [address] [facility] [phone] Discharge Medications: New Prescriptions HYDROCODONE-ACETAMINOPHEN (NORCO) 5-325 MG PER TABLET Take 1-2 tablets by mouth every 6 (six) hours as needed for Pain. Do not exceed 8 in a 24 hour period. Do not take Tylenol, as this medication has Tylenol in it. ONDANSETRON (ZOFRAN-ODT) 4 MG DISINTEGRATING TABLET Take 1 tablet by mouth every 8 (eig ht) hours as needed for Nausea for up to 7 days. POLYETHYLENE GLYCOL (GOLYTELY,NULYTELY) 236 G SUSPENSION Take 4,000 mLs by mouth once f or 1 dose. DIRECTED BY PHYSICIANS OFFICE Cosmo Pathak PA-C 12/06/18 1524 Benji Zheng MD 12/06/18 6264 documented in this encounter Plan of Treatment [...] PAZ | | | | | | [id number] | | | | | | | | +--------+---------+ + + + documented as of this encounter Procedures + +--------+ + + + | Procedure Name | Priori | Date/Time | Associated Diagnosis | Comments | | | ty | | | | + +--------+ + + + | MRI CERVICAL SPINE | Routin | 12/06/2018 | | Results for this | | WO CONTRAST | e | 2:14 PM | | procedure are in the | | | | PDT | | results section. | + +--------+ + + + documented in this encounter Results MRI Cervical Spine wo Contrast (12/06/2018 2:14 PM PDT) + + | Specimen | + + | | + + + + + | Impressions | Performed At | + + + | 1. There does appear to be interval progression in dextro scoliosis | | | cervicothoracic spine apex toward the right at C5. 2. At C3-C4 there | | | has been interval progression in now moderate to severe left | | | foraminal stenosis and moderate left-sided degenerative facet | | | arthropathy. 3. At C4-C5 there has been interval progression in now | | | severe left-sided degenerative facet arthropathy with severe left | | | foraminal stenosis. 4. At C5-C6 there has been interval progression | | | in now severe left-sided degenerative facet arthropathy with severe | | | left-sided foraminal stenosis. 5. At C6-C7 there is moderate to | | | severe left-sided foraminal stenosis which has worsened. 6. At C7-T1 | | | there has been interval progression in moderate to severe left-sided | | | foraminal stenosis. 7. There is a new small central fluid collection | | | within the thoracic spinal cord at the T4 level which measures 2 mm | | | transversely and 6 mm superior inferior. 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 This could be further assessed and | | | characterized with dedicated thoracic spine MRI scan without and with | | | contrast if clinically warranted. No definite spinal cord edema, | | | mass, or compression at this level. Signed by: Lu Mcgarry Richard | | | Sign Date/Time: 12/06/2018 2:44 PM | | + + + + + + | Narrative | Performed At | + + + | MRI CERVICAL SPINE WITHOUT CONTRAST CLINICAL INFORMATION: | | | Cervicalgia. COMPARISON: MRI CERVICAL SPINE WO CONTRAST | | | (04/12/2012); CT SOFT TISSUE NECK W CONTRAST (07/02/2018); PROCEDURE: | | | Sagittal T2, axial T2, sagittal T1, axial T1, sagittal STIR. | | | FINDINGS: Levo scoliosis of the cervical spine apex toward the right | | | at C5. There is reversal of cervical lordosis C5-T1. There is | | | moderate degenerative disease at C4-C5, C5-C6 and C6-C7. Cervical | | | spinal cord is without definite evidence of signal abnormality, | | | compression or mass. There is a small focal fluid collection within | | | the central aspect of the thoracic spinal cord at T4 which measures | | | 2 mm transversely and 6 mm superior inferior. Findings would be | | | consistent with a small syringohydromyelia. This is new from the | | | prior study C2-C3: No significant disc protrusion or canal stenosis. | | | Yfyh-ao-lbmlnkpd left greater than right degenerative facet | | | arthropathy. Mild right foraminal stenosis. C3-C4: Mild disc bulge | | | with moderate left and mild right degenerative facet arthropathy. | | | No significant canal stenosis or cord compression. Moderate to | | | severe left foraminal stenosis. Findings have progressed. C4-C5: | | | Mild diffuse disc bulge/osteophyte complex without significant canal | | | stenosis or cord compression. There is severe left-sided | | | degenerative facet arthropathy with severe left foraminal stenosis. | | | Findings have progressed. C5-C6: There is moderate to severe left | | | degenerative facet arthropathy which has progressed. There is | | | severe left foraminal stenosis which is worsened minimal disc bulge | | | without canal stenosis or cord compression C6-C7: Mild left greater | | | than right degenerative facet arthropathy has mildly progressed. No | | | focal disc protrusion, canal stenosis or cord compression moderate | | | to severe left foraminal stenosis has worsened C7-T1: Mild disc bulge | | | with a small right paracentral disc protrusion is stable. No | | | significant canal stenosis or cord compression mild bilateral facet | | | arthropathy. Moderate to severe left foraminal stenosis has | | | worsened. There is mild right foraminal stenosis. | | + + + + + | Procedure Note | + + | Eric, Rad Conversion - 12/27/2018 7:02 PM PDT MRI CERVICAL SPINE WITHOUT CONTRAST | | CLINICAL INFORMATION: | | Cervicalgia. | | COMPARISON: | | MRI CERVICAL SPINE WO CONTRAST (04/12/2012); CT SOFT TISSUE NECK W | | CONTRAST (07/02/2018); | | PROCEDURE: | | Sagittal T2, axial T2, sagittal T1, axial T1, sagittal STIR. | | FINDINGS: | | Levo scoliosis of the cervical spine apex toward the right at C5. | | There is reversal of cervical lordosis C5-T1. There is moderate | | degenerative disease at C4-C5, C5-C6 and C6-C7. Cervical spinal cord | | is without definite evidence of signal abnormality, compression or | | mass. There is a small focal fluid collection within the central | | aspect of the thoracic spinal cord at T4 which measures 2 mm | | transversely and 6 mm superior inferior. 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 This is new from the prior study | | C2-C3: No significant disc protrusion or canal stenosis. | | Fagj-lq-fbovdqhh left greater than right degenerative facet | | arthropathy. Mild right foraminal stenosis. | | C3-C4: Mild disc bulge with moderate left and mild right degenerative | | facet arthropathy. No significant canal stenosis or cord compression. | | Moderate to severe left foraminal stenosis. Findings have progressed. | | C4-C5: Mild diffuse disc bulge/osteophyte complex without significant | | canal stenosis or cord compression. There is severe left-sided | | degenerative facet arthropathy with severe left foraminal stenosis. | | Findings have progressed. | | C5-C6: There is moderate to severe left degenerative facet arthropathy | | which has progressed. There is severe left foraminal stenosis which is | | worsened minimal disc bulge without canal stenosis or cord compression | | C6-C7: Mild left greater than right degenerative facet arthropathy has | | mildly progressed. No focal disc protrusion, canal stenosis or cord | | compression moderate to severe left foraminal stenosis has worsened | | C7-T1: Mild disc bulge with a small right paracentral disc protrusion | | is stable. No significant canal stenosis or cord compression mild | | bilateral facet arthropathy. Moderate to severe left foraminal | | stenosis has worsened. There is mild right foraminal stenosis. | | IMPRESSION: | | 1. There does appear to be interval progression in dextro scoliosis | | cervicothoracic spine apex toward the right at C5. | | 2. At C3-C4 there has been interval progression in now moderate to | | severe left foraminal stenosis and moderate left-sided degenerative | | facet arthropathy. | | 3. At C4-C5 there has been interval progression in now severe | | left-sided degenerative facet arthropathy with severe left foraminal | | stenosis. | | 4. At C5-C6 there has been interval progression in now severe | | left-sided degenerative facet arthropathy with severe left-sided | | foraminal stenosis. | | 5. At C6-C7 there is moderate to severe left-sided foraminal stenosis | | which has worsened. | | 6. At C7-T1 there has been interval progression in moderate to severe | | left-sided foraminal stenosis. | | 7. There is a new small central fluid collection within the thoracic | | spinal cord at the T4 level which measures 2 mm transversely and 6 mm | | superior inferior. Findings likely relate to a small | | syringohydromyelia. This could be further assessed and characterized | | with dedicated thoracic spine MRI scan without and with contrast if | | clinically warranted. No definite spinal cord edema, mass, or | | compression at this level. | | Signed by: Lu Mcgarry Richard | | Sign Date/Time: 12/06/2018 2:44 PM | + + documented in this encounter Visit Diagnoses + + | Diagnosis | + + | DDD (degenerative disc disease), cervical Degeneration of cervical intervertebral | | disc | + + | Cervical radicular pain Brachial neuritis or radiculitis nos | + + | Acute pain of right shoulder | + + documented in this encounter"
--- OUTSIDE RECORDS SUMMARY | ~2019-11-25 | XMS | Encounter Summary ---
Demographics + + + | Address | [address] | | | [place] [address] | + + + | Home Phone | | + + + | Preferred Language | Unknown | + + + | Marital Status | | + + + | Adventist Affiliation | 1013 | + + + | Race | Unknown | + + + | Ethnic Group | Unknown | + + + Author + + + | Author | [facility] | | | and [place] | + + + | Organization | [facility] | | | and [...] [place] | | | | | [address] | | + + + + + Care Team Providers + +------+ + | Care Fighting Vehicle Systems Maintainer Name | Role | Phone | + +------+ + PCP | Unavailable | + +------+ + Encounter Details +--------+ + + + + | Date | Type | Department | Care Team | Description | +--------+ + + + + | 05/22/ | Hospital | [facility] | | | | 2011 | Encounter | [facility] | | | | | | [address] | | | | | | [place] | | | | | | [address] | | | | | | [phone] | | | +--------+ + + + [...] this encounter Miscellaneous Notes Op Note - Ever Corley MD - 05/22/2011 9:21 AM PSTPatient Name: Ivan Giles Gender: Brielle Procedure Date: 05/22/2011 10:35 AM Date of : 1965 Age: 45 Admit Type: Outpatient Room: Endo Room 2 Note Status: Finalized Attending MD: Ever Corley MD Procedure: Upper GI endoscopy Indications: Epigastric abdominal pain, Nausea with vomiting Providers: Ever Corley MD, Neeru Whitten RN, Rissa Wetzel, Food Service Team Member Medicines: Midazolam 5 mg IV, Diphenhydramine 50 mg IV, Fentanyl 200 micrograms IV, Zofran 4 mg IV Complications: No immediate complications. Estimated blood loss: None. Procedure: - Prior to the procedure, a History and Physical was performed, and patient medications and allergies were reviewed. The risks and benefits of the procedure and the sedation options and risks were discussed with the patient. All questions were answered and informed consent was obtained. Patient identification and proposed procedure were verified by the physician and the nurse in the procedure room. Mental Status Examination: alert and oriented. Airway Examination: Mallampati Class I (tonsillar pillars visualized). Respiratory Examination: clear to auscultation. CV Examination: normal. Prophylactic Antibiotics: The patient does not require prophylactic antibiotics. Prior Anticoagulants: The patient has taken no previous anticoagulant or antiplatelet agents. ASA Grade Assessment: II - A patient with mild systemic disease. After reviewing the risks and benefits, the patient was deemed in satisfactory condition to undergo the procedure. The anesthesia plan was to use moderate sedation / analgesia (conscious sedation). Immediately prior to administration of medications, the patient was re-assessed for adequacy to receive sedatives. The physical status of the patient was re-assessed after the procedure. After obtaining informed consent, the endoscope was passed under direct vision. Throughout the procedure, the patient's blood pressure, pulse, and oxygen saturations were monitored continuously. The endoscope was introduced through the mouth, and advanced to the second part of duodenum. The upper GI endoscopy was accomplished without difficulty. The patient tolerated the procedure well. Findings: The examined esophagus was normal. Localized mildly erythematous mucosa with no bleeding was found in the gastric antrum. Biopsies were taken with a cold forceps for histology. A few localized erosions with no bleeding were found in the second part of the duodenum. Biopsies were taken with a cold forceps for histology. Impression: - Normal esophagus. - Gastric mucosal abnormality characterized by erythema. This was biopsied. - Duodenal erosion. This was biopsied. Recommendation: - Await pathology results. - Discharge patient to home (ambulatory). Ever Corley MD Signed Date: 05/22/2011 11:52 AM Number of Addenda: 0 Note initiated on 05/22/2011 10:36 AM Scope Withdrawal Time: N/A Total Procedure Duration Time: 03 minutes 20 seconds <Electronically Signed by Ever Corley MD> 05/22/11 1153 documented in this encounter Plan of Treatment [...] [place] | | | | | | [address] | | | | | | | | +--------+---------+ + + + documented as of this encounter Visit Diagnoses Not on filedocumented in this encounter"
--- OUTSIDE RECORDS SUMMARY | ~2019-11-25 | XMS | Encounter Summary ---
Demographics + + + | Address | [address] | | | [place] [address] | + + + | Home Phone | | + + + | Preferred Language | Unknown | + + + | Marital Status | Unmarried Domestic Partner | + + + | Mu-Ism Affiliation | NON | + + + | Race | White | + + + | Ethnic Group | Not or | + + + Author + + + | Author | [facility] [employer] [facility] | + + + | Organization | [facility] | + + + | Address | Unknown | + + + | Phone | Unavailable | + + + Support + + + + + | Name | Relationship | Address | Phone | + + + + + | Gabriel Greenberg | ECON | [address] | | | | | [place] | | | | | [address] | | + + + + + Care Team Providers + +------+ + | Care Cartoon Designer Name | Role | Phone | [...] + + | 03/26/ | Documentati | [facility] Primary Care | Fred, | Medical Records | | 2016 | on | at [facility] | MD Caio | Review (EOCIL) | | | | [address] | [address] | | | | | Loop Physician's | [address] [place] [facility], | | | | | Pavilion, 3rd floor | [place] [address] | | | | | [place], [place] | [phone] | | | | | [address] | | | | | | [phone] | | | +--------+ + + + [...]
--- OUTSIDE RECORDS SUMMARY | ~2019-11-25 | XMS | Encounter Summary ---
Demographics + + + | Address | [address] | | | [place] [address] | + + + | Home Phone [...] + + | Author | [facility] | [facility] | + + + | Organization | [...] [place] | | | | | [address] | | + + + + + Care Team Providers + +------+ + | Care Linux Developer Name | Role | Phone | [...] Pavilion, 3rd floor | | ([facility]) | | | | [place], [place] | | | | | | [address] | | | | | | [phone] | | | +--------+------+ + + + [...] [facility] | [address] | [place] [address] | | | SERVICES, CORE | PARK [...] | + + + + + | [facility] | [address] | [place] [address] | | | SERVICES, CORE | FRANKY [...] + | [facility] - | [address] | [place] [address] | | | [place] | | | [...] | + + + + + | [facility] - | [address] | [place] [address] | | | [place] | | | | + + + [...] | | | this test in the [employer] | | | | | | Laboratory Test | | | | | | Directory | | | | | | (Falcon Social.S[employer] Endeavors).Performed | | | | | | by [employer],[address] | | | | | | [address], [facility] | | | | | | [address] | | | | | | [phone].Falcon Social. | | | | | | [facility], Ben Araiza MD, | | | [...] [facility] | [address] | [place], [place] | | | UNIV PTH - INTFC | | [address] | | + + + + + [...] [facility] | [address] | [place] [address] | | | SERVICES, CORE | PARK [...] | + + + + + | [facility] | [address] | [place] [address] | | | SERVICES, [facility] | [address] | | | + [...] by | | | | | | [employer],[address] | | | | | | [facility] [facility] | | | | | | [address] | | | | | | [phone].Arvinaslab. | | | | | | Ben [...] [facility] | [address] | [place], [place] | | | UNIV PTH - INTFC | | [address] | | + + + + + [...] + + + + | [facility] | [address] | [place] [address] | | | DIAGNOSTIC | [address] [...] | | | LABORATORY | | | [place] | | | SERVICES, | | | [...] the MDRD equation recommended by the | [facility] | | National Kidney Disease Education Program. [...] | + + + + + | [facility] | [address] | [place] [address] | | | ARELIS GARCIA | FRANKY [...] LABORATORY | | performance characteristics determined by [facility]. It has | SERVICES, | | not [...] | + + + + + | [employer] | [address] | [place] [address] | | | SERVICES, SPECIAL | FRANKY [...]
--- OUTSIDE RECORDS SUMMARY | ~2019-11-25 | XMS | Encounter Summary ---
Demographics + + + | Address | [address] | | | [place] [address] | + + + | Home Phone [...] Author + + + | Author | [facility] [place] | + + + | Organization | [facility] | + + + | Address | Unknown | + + + | Phone | Unavailable | + + + Support + + + + + | Name | Relationship | Address | Phone | + + + + + | Gabriel Greenberg | ECON | [address] | | | | | [place] | | | | | [address] | | + + + + + Care Team Providers + +------+ + | Care Rating Officer Name | Role | Phone | [...] + + + + | 09/08/ | Ice Hockey Coach | [facility] Primary Care | Fred, | | | 2016 | | at [facility] | MD Caio | | | | | [address] [place] | [address] | | | | | Loop Physician's | [place] [facility], | | | | | Pavilion, 3rd floor | [place] [address] | | | | | [place], [place] | [phone] | | | | | [address] | | | | | | [phone] | | | +--------+ + + + [...]
--- OUTSIDE RECORDS SUMMARY | ~2019-11-25 | XMS | Encounter Summary ---
Demographics + + + | Address | [address] | | | [place] [address] | + + + | Home Phone | | + + + | Preferred Language | Unknown | + + + | Marital Status | | + + + | Mosque Affiliation | 1013 | + + + [...] [place] | | | | | [address] | | + + + + + Care Team Providers + +------+ + | Care Extension Division Director Name | Role | Phone | + +------+ + | Jax Cabrera MD | PCP | | + +------+ + Reason for Visit + +--------+ + | Reason | Onset | Comments | | | Date | | + +--------+ + | Appointment | 01/17/ | | | | 2018 | | + +--------+ + Encounter Details +--------+ + + + + | Date | Type | Department | Care Team | Description | +--------+ + + + + | 01/17/ | Telephone | [facility] | Deyvi Kovacs, | Appointment | | 2019 | | [facility] | DIGITAL PHOTOGRAPHIC PRINTER [address] | | | | | D[address]OLOGY [address] | | | | | [address] | [place] [address] | | | | | [place], [place] | [phone] | | | | | [address] | | | | | | [phone] | | | +--------+ + + + [...] Miscellaneous Notes Telephone Encounter - Thelma Subramanian, Radiator Repairer - 01/17/2019 1:37 PM PDTPatient called in to make an appointment for his neck pain. Appointment made with Deyvi ricketts signed by Thelma Subramanian, Radiator Repairer at 01/17/2019 1:39 PM PDTdocumented in this encounter Plan of Treatment +--------+---------+ + + + | Date | Type | Specialty | Care Team | Description | +--------+---------+ + + + | 12/05/ | Office | Pain Medicine | Vitaliy Mendoza, | | | 2019 | Visit | | DO [address] | | | | | | [place] | | | | | | [phone] | | | | | | | | +--------+---------+ + + + documented as of this encounter Visit Diagnoses Not on filedocumented in this encounter"
--- OUTSIDE RECORDS SUMMARY | ~2019-11-25 | XMS | Encounter Summary ---
Demographics + + + | Address | [address] | | | [place] [address] | + + + | Home Phone | | + + + | Preferred Language | Unknown | + + + | Marital Status | Unmarried Domestic Partner | + + + | Taoism Affiliation | NON | + + + | Race | White | + + + | Ethnic Group | Not or | + + + Author + + + | Author | [facility] [employer] [facility] | + + + | Organization | [facility] | + + + | Address | Unknown | + + + | Phone | Unavailable | + + + Support + + + + + | Name | Relationship | Address | Phone | + + + + + | aGbriel Greenberg | ECON | [address] | | | | | [place] | | | | | [address] | | + + + + + Care Team Providers + +------+ + | Care Private Eye Name | Role | Phone | + +------+ + | Jax Cabrera MD | PCP | | + +------+ + Encounter Details +--------+ + + + + | Date | Type | Department | Care Team | Description | +--------+ + + + + | 11/05/ | Inside | Endoscopic | Fred, | | | 2017 | Referral | Procedural Unit at | MD Christal | | | | Order | [address] | [address] | | | | | [address] | [facility], | | | | | [place], | [place] [address] | | | | | 4th floor [place], | [phone] | | | | | [place] [address] | | | | | | [phone] | | | +--------+ + + + [...] on filedocumented as of this encounter Results COLONOSCOPY (03/08/2017 8:10 AM PDT) + + | Specimen | + + | | + + + +------ --------+ | Narrative | Perfo rmed At | + +------ --------+ | MRN: | [facility] | | [id number] Date: 03/08/2017Patient Name: Ivan Nicole #: | SUJEY COPY | | [id number] of : 1965CSN: [id number] Type: | | | AmbulatoryRoom: GI 2Procedure: ColonoscopyIndications: | | | Screening for colorectal malignant neoplasmProviders: | | | SOILA ARRIAGA MD (Doctor), GWENDOLYN KHALIL RN | | | (Nurse), NED ALEX, Afternoon Nanny | | | (Afternoon Nanny)Referring MD: CHRISTAL GUERRERO MDRequesting | | | Provider: Medicines: Fentanyl 125 [...] the procedure. | | | The Olympus [id number] Colonoscope #[id number] was | | | introduced through the [...] | | electively with a two day prep.SOILA ARRIAGA MD03/08/2017 8:43:38 | | | AMThis report has been signed electronically.Number of Addenda: 0Note | | | Initiated On: 03/08/2017 8:10 [facility] Letter to: JAX CABRERA MD | | | - Resume previous diet. | | | - Continue present medications. | | | - Repeat colonoscopy electively with a two day prep. | | |SOILA ARRIAGA MD | | |03/08/2017 8:43:38 AM | | |This report has been signed electronically. | | |Number of Addenda: 0 | | |Note Initiated On: 03/08/2017 8:10 AM | | | Letter to: | | | JAX CABRERA MD | | + +------ --------+ + +---------+ + + | Performing | Address | City/State[facility] | Phone Number | | Organization | | | | + +---------+ + + | [facility] | | | | + +---------+ + + documented in this encounter Visit Diagnoses + + | Diagnosis | + + | Special screening for malignant neoplasm of colon - Primary Special screening for | | malignant neoplasms, colon | + + documented in this encounter"
--- OUTSIDE RECORDS SUMMARY | ~2019-11-25 | XMS | Encounter Summary ---
Demographics + + + | Address | [address] | | | [place] [address] | + + + | Home Phone [...] + + | Author | [facility] | + + + | Organization | [facility] | + + + | Address | Unknown | + + + | Phone | Unavailable | + + + Support + + + + + | Name | Relationship | Address | Phone | + + + + + | Gabriel Greenberg | ECON | [address] | | | | | [place] | | | | | [address] | | + + + + + Care Team Providers + +------+ + | Care Ditcher Operator Name | Role | Phone | [...] + + | 04/03/ | Office | [facility] Primary Care | Ibarra, | Human | | 2017 | Visit | at [facility] | MD Caio | immunodeficiency | | | | [address] | [address] | virus (HCC) (Primary | | | | Loop Physician's | [address] [place], | Dx) | | | | Pavilion, 3rd floor | [place] [address] | | | | | [place], [place] | [phone] | | | | | [address] | | | | | | [phone] | | | +--------+---------+ + + + [...] PDTI am familiar with Mr. Giles (Bradley's) [facility] history and the current active problems. [...] the clinics, precludes regular follow up in [place] and so jese sanz will continue to get care with his soap maker in [facility]. Caio Ibarra MD Renetta Colindres M [...] this pain; Rx by Woody Martinez at [facility] in [facility], but has not had a script for this in 2 years as no longer seeing th is Dr. Valentin, based on changes to insurance and billing. Has instead been using epson salt s, "Icy Hot" muscular rub and "some cream for back spasms." Last provider with whom he discu ssed his pain was Dr. Cabrera in [place] but he felt the clinic didn't understand his pain needs. He has just established with a new PCP 2 weeks ago in [place], [place], at [facility]. #Elevated blood pressure: SBP 150s here [...] Family History and changes were updated in [facility]. - Lives with in [place], [place]. Habits: - never smoker - never [...] gait. Labs: Lab Results Component Value Date [id number] 382 02/07/2016 [id number] 28.3* 02/07/2016 HIVPCR [id number]* 02/07/2016 Lab Results Component Value Date RPR Non Reactive 02/07/2016 No results found for: CHOL, LDL, HDL, TRI Lab Results Component Value Date [id number] 25.9 02/07/2016 Last CBC, CMP reviewed with patient. Ivan is a 50 y.o. male with history of above who presents for follow up of his HIV and o ther chronic issues. 1. HIV (human immunodeficiency virus infection) ([facility]) Encouraged patient to continue with prezcobix and [...] 5. Bipolar affective disorder, remission status unspecified ([facility]) -Continue valproic acid -Follow up with PCP/MH provider 6. Convulsions, unspecified convulsion type ([facility]) -Continue valproic acid -Follow up with PCP/MH [...] arises. I spent more than 30 minutes humg-fg-xunh with the patient of which greater than [...] | + + + + + | [facility] | [address] | [place] [address] | | | SERVICES, CORE | FRANKY [...] | + + + + + | [facility] | [address] | [place] [address] | | | SERVICES, CORE | FRANKY [...] LABORATORY | | performance characteristics determined by [facility]. It has | SERVICES, | | not [...] | + + + + + | [facility] | [address] | [place] [address] | | | SERVICES, SPECIAL | FRANKY [...] + + + | [facility] | [address] | [place] [address] | | | DIAGNOSTIC | [address] [...]
--- OUTSIDE RECORDS SUMMARY | ~2019-11-25 | XMS | Encounter Summary ---
Demographics + + + | Address | [address] | | | [place] [address] | + + + | Home Phone | | + + + | Preferred Language | Unknown | + + + | Marital Status | | + + + | Latter-Day Affiliation | 1013 | + + + | Race | Unknown | + + + | Ethnic Group | Unknown | + + + Author + + + | Author | [facility] | | | and [place] | + + + | Organization | [facility] | | [...] [place] | | | | | [address] | | + + + + + Care Team Providers + +------+ + | Care Fabrication And Layout Craftsman Name | Role | Phone | + +------+ + PCP | Unavailable | + +------+ + Encounter Details +--------+ + + + + | Date | Type | Department | Care Team | Description | +--------+ + + + + | 10/03/ | Hospital | [facility] | Augustin Collado, | [place] not | | 2008 - | Encounter | [facility] | [address] | Intractabl ([facility]) | | | | CLINICAL DECISION | [place] [address] | | | 10/09/ | | [address] | [phone] | | | 2007 | | [place], [place] | | | | | | [address] | | | | | | [phone] | | | +--------+ + + + [...] [place] | | | | | | [address] | | | | | | | | +--------+---------+ + + + documented as of this encounter Visit Diagnoses + + | Diagnosis | + + | Generalized convulsive epilepsy without mention of intractable epilepsy | + + documented in this encounter"
--- OUTSIDE RECORDS SUMMARY | ~2019-11-25 | XMS | Encounter Summary ---
Demographics + + + | Address | [address] | | | [place] [address] | + + + | Home Phone [...] Author + + + | Author | [facility] | + + + | [...] [place] | | | | | [address] | | + + + + + Care Team Providers + +------+ + | Care Insulation Cutter Name | Role | Phone | + +------+ + | Unknown | PCP | Unavailable | + +------+ + Reason for Visit +---------+ + | Reason | Comments | +---------+ + | Seizure | | +---------+ + AUTH/CERT +--------+--------+ + + + + | Status | Reason | Specialty | Diagnoses / | Referred By | Referred To | | | | | Procedures | Contact | Contact | +--------+--------+ + + + + | Closed | | Emergency | | | Emergency | | | | Medicine | | | Dept Hrc | | | | | | | [address] | | | | | | | [place] | | | | | | | [facility] | | | | | | | Hospital | | | | | | | [place], [place] | | | | | | | [address] | | | | | | | Phone: | | | | | | | [phone] | +--------+--------+ + + + + Encounter Details +--------+ + + + + | Date | Type | Department | Care Team | Description | +--------+ + + + + | 11/02/ | Emergency | [facility] Emergency | [place], | | | 2009 | | Department 0 | MD Jed | | | | | [address] | Erwin Cobb | | | | | [facility] | [facility] | | | | | [place], [place] | [place] [address] | | | | | [address] | EMERGENCY | | | | | [phone] | [place] [address] | | | | | | [phone] | | | | | | | [...] + + + | Blood Pressure | 122/76 | 11/02/2009 7:27 PM | | | | | PDT | | + + + + + | Pulse | 72 | 11/02/2009 7:27 PM | | | | | PDT | | + + + + + | Temperature | 36.8 C (98.2 F) | 11/02/2009 4:51 PM | | | | | PDT | | + + + + + | Respiratory Rate | 18 | 11/02/2009 7:27 PM | | | | | PDT | | + + + + + | Oxygen Saturation | 99% | 11/02/2009 7:27 PM | | | | | PDT | | + + + + + | Inhaled Oxygen | - | - | | | Concentration | | | | + + + + + | Weight | 71.2 kg (157 lb) | 11/02/2009 4:51 PM | | | | | PDT | | + + + + + | Height | - | - | | + + + + + | Body Mass Index | - | - | | + + + + + documented in this encounter Discharge Instructions Instructions Jed Skelton MD - 11/02/2009 Adult Seizure You have had a seizure (convulsions). If this is the first seizure it may have been a frigh tening experience. A seizure disorder is not a diagnosis. It is a sign that something else m ay be wrong in the central nervous system. In the Emergency Department the measures usually taken are for treatment of the seizure act ivity. Almost always you will require follow up with your caregiver. You will possibly need further testing and evaluation. Your caregiver or the specialist to whom you are referred wi ll determine if further treatment is needed. After a seizure, you may be confused, disoriented, and drowsy. These symptoms (problems) of ten follow a seizure. If medications are used to treat the seizure, they may also cause some of these changes. It is unlikely another seizure will immediately follow the first seizure. This pause is a refractory period. Because of this, hospital admission is seldom required u nless there are other conditions present. For example, trauma or metabolic problems. Sometimes the seizure activity has followed a fainting episode. This has likely been caused by a temporary drop in blood pressure. These syncopal (fainting) seizures are generally not a cause for concern. No further evaluation is required unless suggested by your caregiver. HOME CARE INSTRUCTIONS l Follow up with your caregiver as suggested. l If any immediate problems occur return to the Emergency Department. l Do not swim or drive until given the OK by your caregiver. [facility] Patient Information 2006 115 network disks. Hypokalemia (Low Potassium) You have low blood potassium (hypokalemia). Potassium is a chemical that is necessary for y our body to work. Your body requires about equal amounts of sodium (salt) and potassium. The average diet provides too much sodium. The average diet has about the right amount of potas sium. Most of the time, a lack of potassium will not occur unless you are on medications michael t lower it. Water pills (diuretics) often lower the potassium level. Occasionally, prolonged diarrhea (especially in children) and laxative abuse will cause hypokalemia. Signs of potassium deficiency include: Lethargy Depression Muscle weakness Mental confusion Leg cramps Loss of appetite Nausea (feeling sick to your stomach) Irregular heartbeats Too little or too much potassium in your body can cause bad problems. Too much potassium in your body can occur in renal (kidney) failure. With normal kidneys, it is almost impossible to develop high potassium levels with diet alone. This is possible with medications. It is necessary to take any potassium supplements as directed by your caregiver. If your potassium has been lowered by medications, often a diet rich in potassium will rais e your levels. A salt substitute containing potassium will also help. Foods rich in potassiu m include: Bananas Raisins & dried fruits Meats [place] juice Kiwi Peanut butter Bran Potatoes Dried peas Legumes (beans) [place] Coffee If your caregiver has prescribed a potassium supplement for you today or adjusted your medi cations, keep all suggested visits for rechecks as directed. [facility] Patient Information 2007 115 network disks. documented in this encounter Plan of Treatment Not on filedocumented as of this encounter Procedures + +--------+ + + + | Procedure Name | Priori | Date/Time | Associated Diagnosis | Comments | | | ty | | | | + +--------+ + + + | UA 10 DIP POC | Urgent | 11/02/2009 | | Results for this | | | | 7:18 PM | | procedure are in the | | | | PDT | | results section. | + +--------+ + + + | DIFFERENTIAL | Urgent | 11/02/2009 | | Results for this | | | | 4:58 PM | | procedure are in the | | | | PDT | | results section. | + +--------+ + + + | CBC, WITH | Urgent | 11/02/2009 | | Results for this | | DIFFERENTIAL | | 4:58 PM | | procedure are in the | | | | PDT | | results section. | + +--------+ + + + | COMPLETE METABOLIC | Urgent | 11/02/2009 | | Results for this | | SET | | 4:58 PM | | procedure are in the | | (NA,K,CL,CO2,BUN,CRE | | PDT | | results section. | | AT,GLUC,CA,AST,ALT,B | | | | | | TORIBIO TOTAL,ALK | | | | | | PHOS,ALB,PROT TOTAL) | | | | | + +--------+ + + + | URINE, MICROSCOPIC | Urgent | 11/02/2009 | | Results for this | | EXAM | | 4:58 PM | | procedure are in the | | | | PDT | | results section. | + +--------+ + + + | LIPASE, PLASMA | Urgent | 11/02/2009 | | Results for this | | | | 4:58 PM | | procedure are in the | | | | PDT | | results section. | + +--------+ + + + documented in this encounter Results UA DIPSTICK ONLY W/O MICRO, POC (11/02/2009 7:18 PM PDT) + +--------+ + + + | Component | Value | Ref Range | Performed | Pathologist | | | | | At | Signature | + +--------+ + + + | COLOR (UA | yellow | | [facility] - | | | DIP), POC | | | [facility] | | | | | | [place] | | | | | | OF CARE | | | | | | TESTS | | + +--------+ + + + | APPEARANCE | cloudy | | [facility] - | | | (UA DIP), | | | [place] | | | POC | | | [place] | | | | | | OF CARE | | | | | | TESTS | | + +--------+ + + + | LEUKOCYTES | neg | Negative | [facility] - | | | (UA DIP), | | | [place] | | | POC | | | [place] | | | | | | OF CARE | | | | | | TESTS | | + +--------+ + + + | NITRITES | neg | Negative | [facility] - | | | (UA DIP), | | | [place] | | | POC | | | [place] | | | | | | OF CARE | | | | | | TESTS | | + +--------+ + + + | UROBILINOGE | 0.2 | 0.2 RAMO | [facility] - | | | N (UA DIP), | | UNITS | [place] | | | POC | | | [place] | | | | | | OF CARE | | | | | | TESTS | | + +--------+ + + + | PROTEIN (UA | neg | Negative to | [facility] - | | | DIP), POC | | Trace mg/dL | [facility] | | | | | | [place] | | | | | | OF CARE | | | | | | TESTS | | + +--------+ + + + | PH (UA | 7.0 | 5 - 8 | [facility] - | | | DIP), POC | | | [facility] | | | | | | [place] | | | | | | OF CARE | | | | | | TESTS | | + +--------+ + + + | BLOOD (UA | neg | Negative | [facility] - | | | DIP), POC | | | [facility] | | | | | | [place] | | | | | | OF CARE | | | | | | TESTS | | + +--------+ + + + | SPECIFIC | 1.015 | 1.005 - 1.03 | [facility] - | | | GRAVITY (UA | | | [place] | | | DIP), POC | | | [place] | | | | | | OF CARE | | | | | | TESTS | | + +--------+ + + + | KETONES (UA | neg | Negative mg/dL | [facility] - | | | DIP), POC | | | [place] | | | | | | [place] | | | | | | OF CARE | | | | | | TESTS | | + +--------+ + + + | BILIRUBIN | neg | Negative | [facility] - | | | (UA DIP), | | | [place] | | | POC | | | [place] | | | | | | OF CARE | | | | | | TESTS | | + +--------+ + + + | GLUCOSE (UA | neg | Negative to | [facility] - | | | DIP), POC | | Trace mg/dL | [facility] | | | | | | [place] | | | | | | OF CARE | | | | | | TESTS | | + +--------+ + + + + + | Specimen | + + | Urine | + + + + + + + | Performing | Address | City/State/Zipcode | Phone Number | | Organization | | | | + + + + + | [facility] | [address] | [place], [place] | | | [facility] | [address] | [address] | | | TESTS | | | | + + + + + DIFFERENTIAL (11/02/2009 4:58 PM PDT) + +-------+ + + + | Component | Value | Ref Range | Performed | Pathologist | | | | | At | Signature | + +-------+ + + + | NEUTROPHIL | 53 | 50 - 70 % | [facility] | | | % | | | DEPARTMENT | | | | | | OF | | | | | | PATHOLOGY | | + +-------+ + + + | LYMPHOCYTE | 40 | 18 - 42 % | [facility] | | | % | | | DEPARTMENT | | | | | | OF | | | | | | PATHOLOGY | | + +-------+ + + + | MONOCYTE % | 7 | 2 - 8 % | [facility] | | | | | | DEPARTMENT | | | | | | OF | | | | | | PATHOLOGY | | + +-------+ + + + | EOS % | 0 (L) | 1 - 3 % | [facility] | | | | | | DEPARTMENT | | | | | | OF | | | | | | PATHOLOGY | | + +-------+ + + + | BASO % | 1 | <3 % | [facility] | | | | | | DEPARTMENT | | | | | | OF | | | | | | PATHOLOGY | | + +-------+ + + + | NEUTROPHIL | 3.0 | 1.8 - 7.7 K/cu | [facility] | | | # | | mm | DEPARTMENT | | | | | | OF | | | | | | PATHOLOGY | | + +-------+ + + + | LYMPHOCYTE | 2.2 | 1.0 - 4.8 K/cu | [facility] | | | # | | mm | DEPARTMENT | | | | | | OF | | | | | | PATHOLOGY | | + +-------+ + + + | MONOCYTE # | 0.4 | <0.9 K/cu mm | [facility] | | | | | | DEPARTMENT | | | | | | OF | | | | | | PATHOLOGY | | + +-------+ + + + | EOS # | 0.0 | <0.6 K/cu mm | [facility] | | | | | | DEPARTMENT | | | | | | OF | | | | | | PATHOLOGY | | + +-------+ + + + | BASO # | 0.1 | <0.2 | [facility] | | | | | | DEPARTMENT | | | | | | OF | | | | | | PATHOLOGY | | + +-------+ + + + + + | Specimen | + + | | + + + + + + + | Performing | Address | City/State/Zipcode | Phone Number | | Organization | | | | + + + + + | [facility] | [address] | [place] [address] | | | PATHOLOGY | [address] | | | + + + + + URINE, MICROSCOPIC EXAM (11/02/2009 4:58 PM PDT) + + + + + + | Component | Value | Ref Range | Performed | Pathologist | | | | | At | Signature | + + + + + + | SQUAMOUS | Not Recd | /hpf | [facility] | | | EPITHELIAL | | | DEPARTMENT | | | | | | OF | | | | | | PATHOLOGY | | + + + + + + | NON-SQUAMOU | Not Recd | /hpf | [facility] | | | S EPITH | | | DEPARTMENT | | | | | | OF | | | | | | PATHOLOGY | | + + + + + + | RED CELLS | Not Recd | 0 - 3 /hpf | [facility] | | | | | | DEPARTMENT | | | | | | OF | | | | | | PATHOLOGY | | + + + + + + | WHITE CELLS | Not Recd | 0 - 5 /hpf | [facility] | | | | | | DEPARTMENT | | | | | | OF | | | | | | PATHOLOGY | | + + + + + + | BACTERIA | Not Recd | /hpf | [facility] | | | | | | DEPARTMENT | | | | | | OF | | | | | | PATHOLOGY | | + + + + + + | MUCOUS | Not Recd | /hpf | [facility] | | | | | | DEPARTMENT | | | | | | OF | | | | | | PATHOLOGY | | + + + + + + | HYALINE | Not Recd | 0 - 1 /lpf | [facility] | | | CASTS | | | DEPARTMENT | | | | | | OF | | | | | | PATHOLOGY | | + + + + + + | GRANULAR | Not Recd | /lpf | [facility] | | | CASTS | | | DEPARTMENT | | | | | | OF | | | | | | PATHOLOGY | | + + + + + + | CELLULAR | Not Recd | /lpf | [facility] | | | CASTS | | | DEPARTMENT | | | | | | OF | | | | | | PATHOLOGY | | + + + + + + | AMORPHOUS | Not Recd | /hpf | [facility] | | | CRYSTALS | | | DEPARTMENT | | | | | | OF | | | | | | PATHOLOGY | | + + + + + + | CALCIUM | Not Recd | /hpf | [facility] | | | OXALATE | | | DEPARTMENT | | | [facility] [place] | | | OF | | | | | | PATHOLOGY | | + + + + + + | URIC ACID | Not Recd | /hpf | [facility] | | | CRYSTALS | | | DEPARTMENT | | | | | | OF | | | | | | PATHOLOGY | | + + + + + + | TRIPLE P04 | Not Recd | /hpf | [facility] | | | CRYSTALS | | | DEPARTMENT | | | | | | OF | | | | | | PATHOLOGY | | + + + + + + | YEAST (LAB) | Not Recd | /hpf | [facility] | | | | | | DEPARTMENT | | | | | | OF | | | | | | PATHOLOGY | | + + + + + + | TRICHOMONAS | Not Recd | /hpf | [facility] | | | | | | DEPARTMENT | | | | | | OF | | | | | | PATHOLOGY | | + + + + + + + + | Specimen | + + | Urine - Urine | + + + + + + + | Performing | Address | City/State/Zipcode | Phone Number | | Organization | | | | + + + + + | [facility] DEPARTMENT OF | [address] | [place] [address] | | | PATHOLOGY | [address] | | | + + + + + CBC, WITH DIFFERENTIAL (11/02/2009 4:58 PM PDT) + +---------+ + + + | Component | Value | Ref Range | Performed | Pathologist | | | | | At | Signature | + +---------+ + + + | WHITE CELL | 5.6 | 4.4 - 11.0 K/cu | [facility] | | | COUNT | | mm | DEPARTMENT | | | | | | OF | | | | | | PATHOLOGY | | + +---------+ + + + | RED CELL | 4.61 | 4.50 - 5.90 | [facility] | | | COUNT | | M/cu mm | DEPARTMENT | | | | | | OF | | | | | | PATHOLOGY | | + +---------+ + + + | HEMOGLOBIN | 14.1 | 13.5 - 17.5 | [facility] | | | | | g/dL | DEPARTMENT | | | | | | OF | | | | | | PATHOLOGY | | + +---------+ + + + | HEMATOCRIT | 41.4 | 41.0 - 53.0 % | [facility] | | | | | | DEPARTMENT | | | | | | OF | | | | | | PATHOLOGY | | + +---------+ + + + | MCV | 89.8 | 80.0 - 96.0 fL | [facility] | | | | | | DEPARTMENT | | | | | | OF | | | | | | PATHOLOGY | | + +---------+ + + + | MCHC | 34.1 | 33.4 - 35.5 | [facility] | | | | | g/dL | DEPARTMENT | | | | | | OF | | | | | | PATHOLOGY | | + +---------+ + + + | RDW | 14.2 | 11.5 - 15.0 % | [facility] | | | | | | DEPARTMENT | | | | | | OF | | | | | | PATHOLOGY | | + +---------+ + + + | PLATELET | 133 (L) | 150 - 400 K/cu | [facility] | | | COUNT | | mm | DEPARTMENT | | | | | | OF | | | | | | PATHOLOGY | | + +---------+ + + + + + | Specimen | + + | Blood - Blood | + + + + + + + | Performing | Address | City/State/Zipcode | Phone Number | | Organization | | | | + + + + + | [facility] | [address] | [place] [address] | | | PATHOLOGY | [address] | | | + + + + + LIPASE, PLASMA (11/02/2009 4:58 PM PDT) + +-------+ + + + | Component | Value | Ref Range | Performed | Pathologist | | | | | At | Signature | + +-------+ + + + | LIPASE | 47 | 22 - 51 U/L | [facility] | | | (LAB) | | | DEPARTMENT | | | | | | OF | | | | | | PATHOLOGY | | + +-------+ + + + + + | Specimen | + + | Blood - Blood | + + + + + + + | Performing | Address | City/State/Zipcode | Phone Number | | Organization | | | | + + + + + | [facility] DEPARTMENT OF | [address] | [place] [address] | | | PATHOLOGY | [address] | | | + + + + + COMPLETE METABOLIC SET (NA,K,CL,CO2,BUN,CREAT,GLUC,CA,AST,ALT,BILI TOTAL,ALK PHOS,ALB,PROT TOTAL) (11/02/2009 4:58 PM PDT) + + + + + + | Component | Value | Ref Range | Performed | Pathologist | | | | | At | Signature | + + + + + + | GLUCOSE, | 110 (H) | 60 - 99 mg/dL | [facility] | | | PLASMA | | | DEPARTMENT | | | (LAB) | | | OF | | | | | | PATHOLOGY | | + + + + + + | BUN, PLASMA | 15 | 6 - 20 mg/dL | [facility] | | | (LAB) | | | DEPARTMENT | | | | | | OF | | | | | | PATHOLOGY | | + + + + + + | CREATININE | 0.88 | 0.70 - 1.30 | [facility] | | | PLASMA | | mg/dL | DEPARTMENT | | | (LAB) | | | OF | | | | | | PATHOLOGY | | + + + + + + | TOTAL | 6.7 | 6.1 - 7.9 g/dL | [facility] | | | PROTEIN, | | | DEPARTMENT | | | PLASMA | | | OF | | | (LAB) | | | PATHOLOGY | | + + + + + + | ALBUMIN, | 3.6 | 3.5 - 4.7 g/dL | [facility] | | | PLASMA | | | DEPARTMENT | | | (LAB) | | | OF | | | | | | PATHOLOGY | | + + + + + + | CALCIUM, | 9.0 | 8.6 - 10.2 | [facility] | | | PLASMA | | mg/dL | DEPARTMENT | | | (LAB) | | | OF | | | | | | PATHOLOGY | | + + + + + + | BILIRUBIN | 1.8 (H) | 0.3 - 1.2 mg/dL | [facility] | | | TOTAL | | | DEPARTMENT | | | | | | OF | | | | | | PATHOLOGY | | + + + + + + | ALK PHOS | 78 | 53 - 128 U/L | [facility] | | | | | | DEPARTMENT | | | | | | OF | | | | | | PATHOLOGY | | + + + + + + | AST(SGOT) | 38 | 15 - 41 U/L | [facility] | | | | | | DEPARTMENT | | | | | | OF | | | | | | PATHOLOGY | | + + + + + + | SODIUM, | 138 | 134 - 143 | [facility] | | | PLASMA | | mmol/L | DEPARTMENT | | | (LAB) | | | OF | | | | | | PATHOLOGY | | + + + + + + | POTASSIUM, | 3.2 (L) | 3.4 - 5.0 | [facility] | | | PLASMA | | mmol/L | DEPARTMENT | | | (LAB) | | | OF | | | | | | PATHOLOGY | | + + + + + + | CHLORIDE, | 102 | 97 - 108 mmol/L | [facility] | | | PLASMA | | | DEPARTMENT | | | (LAB) | | | OF | | | | | | PATHOLOGY | | + + + + + + | TOTAL CO2, | 28 | 23 - 31 mmol/L | [facility] | | | PLASMA | | | DEPARTMENT | | | (LAB) | | | OF | | | | | | PATHOLOGY | | + + + + + + | ALT (SGPT) | 77 (H) | 13 - 48 U/L | [facility] | | | | | | DEPARTMENT | | | | | | OF | | | | | | PATHOLOGY | | + + + + + + | EGFR | > 60 | >60 mL/min | [facility] | | | - | | | DEPARTMENT | | | INDIAN | | | OF | | | | | | PATHOLOGY | | + + + + + + | EGFR NON | > 60Comment: GFR is | >60 mL/min | [facility] | | | -HARIS | estimated using the MDRD | | DEPARTMENT | | | RICAN | equation recommended by | | OF | | | | theNational Kidney | | PATHOLOGY | | | | Disease Education | | | | | | Program. Estimated GFR | | | | | | Interpretive | | | | | | Information: <60 | | | | | | mL/min/1.73 sq m | | | | | | Chronic Kidney Disease | | | | | | <15 mL/min/1.73 sq m | | | | | | Kidney Failure | | | | | | Estimated GFR greater | | | | | | than 60mL/min/1.73 is of | | | | | | limited clinical Value. | | | | | | The MDRD equation is | | | | | | not valid in the | | | | | | following situations: - | | | | | | Patients under 18 years | | | | | | of age - Severe | | | | | | malnutrition or obesity | | | | | | - Vegetarian diet - | | | | | | Rapidly changing kidney | | | | | | function | | | | + + + + + + + + | Specimen | + + | Blood - Blood | + + + + + + + | Performing | Address | City/State/Zipcode | Phone Number | | Organization | | | | + + + + + | [facility] | [address] | [place] [address] | | | PATHOLOGY | [address] | | | + + + + + documented in this encounter Visit Diagnoses + + | Diagnosis | + + | Seizure disorder (HCC) - Primary Unspecified epilepsy without mention of intractable | | epilepsy | + + | Hypokalemia Hypopotassemia | + + documented in this encounter Administered Medications + +--------+ +------+------+------+ | Medication Order | MAR | Action | Dose | Rate | Site | | | Action | Date | | | | + +--------+ +------+------+------+ | lorazepam (aka ATIVAN) | Given | 11/03/19 | 2 mg | | | | injection 2 mg 2 mg, | | 10 5:38 | | | | | intravenous, ONCE, 1 dose, Sat | | PM PDT | | | | | 11/02/09 at 1700 | | | | | | + +--------+ +------+------+------+ +---+---+ | | | +---+---+ + +-------+ +--------+---+---+ | potassium chloride SR (aka | Given | 11/03/19 | 60 mEq | | | | K-DUR) tablet 60 mEq 60 mEq, | | 10 6:56 | | | | | oral, ONCE, 1 dose, 11/02/09 | | PM PDT | | | | | at 1845 | | | | | | + +-------+ +--------+---+---+ +---+---+ | | | +---+---+ + +-------+ +------+---+---+ | sumatriptan (aka IMITREX) | Given | 11/03/19 | 6 mg | | | | injection 6 mg 6 mg, | | 10 6:18 | | | | | subcutaneous, ONCE, 1 dose, Sat | | PM PDT | | | | | 11/02/09 at 1800 | | | | | | + +-------+ +------+---+---+ +---+---+ | | | +---+---+ documented in this encounter"
--- OUTSIDE RECORDS SUMMARY | ~2019-11-25 | XMS | Encounter Summary ---
Demographics + + + | Address | [address] | | | [place] [address] | + + + | Home Phone [...] Author + + + | Author | Replaced By [facility] [email or web address] [facility] | + + + | Organization | [facility] | + + + | Address | Unknown | + + + | Phone | Unavailable | + + + Support + + + + + | Name | Relationship | Address | Phone | + + + + + | Gabriel Greenberg | ECON | [address] | | | | | [place] | | | | | [address] | | + + + + + Care Team Providers + +------+ + | Care Ship'S Electronic Warfare Officer Name | Role | Phone | [...] + + | 05/28/ | Telephone | [facility] Primary [facility] | Fred | Refsunita Request | | 2017 | | at [facility] | MD Caio | | | | | [address] | [address] | | | | | [address] Physician's | [address] [facility], | | | | | Pavilion, 3rd floor | [place] [address] | | | | | [place], [place] | [phone] | | | | | [address] | | | | | | [phone] | | | +--------+ + + + [...]
--- OUTSIDE RECORDS SUMMARY | ~2019-11-25 | XMS | Encounter Summary ---
Demographics + + + | Address | [address] | | | [place] [address] | + + + | Home Phone [...] + + + | Author | [facility] | + + + [...] [place] | | | | | [phone] | | + + + + + Care Team Providers + +------+ + | Care Distance Education Director Name | Role | Phone | + +------+ + | Unknown | PCP | Unavailable | + +------+ + Encounter Details +--------+ + + + + | Date | Type | Department | Care Team | Description | +--------+ + + + + | 01/21/ | Hospital | Registration HOV | | | | 2016 | Encounter | [address] | | | | | | [place], | | | | | | [place] [address] | | | +--------+ + + + [...]
--- OUTSIDE RECORDS SUMMARY | ~2019-11-25 | XMS | Encounter Summary ---
Demographics + + + | Address | [address] | | | [place] [address] | + + + | Home Phone | | + + + | Preferred Language | Unknown | + + + | Marital Status | Unmarried Domestic Partner | + + + | Denominational Affiliation | NON | + + + | Race | White | + + + | Ethnic Group | Not or | + + + Author + + + | Author | [facility] [employer] [facility] | + + + | Organization [...] [place] | | | | | [address] | | + + + + + Care Team Providers + +------+ + | Care Rent And Miscellaneous Remittance Clerk Name | Role | Phone | [...] + + | 04/14/ | Telephone | [facility] Primary Care | Ibarra, | Medication requested | | 2015 | | at [facility] | MD Caio | | | | | [address] | [address] | | | | | [address] | [address] [facility], | | | | | Pavilion, 3rd floor | [place] [address] | | | | | [place], [place] | [phone] | | | | | [address] | | | | | | [phone] | | | +--------+ + + + [...]
--- OUTSIDE RECORDS SUMMARY | ~2019-11-25 | XMS | Encounter Summary ---
Demographics + + + | Address | [address] | | | [place] [address] | + + + | Home Phone | | + + + | Preferred Language | Unknown | + + + | Marital Status | Unmarried Domestic Partner | + + + | Jain Affiliation | NON | + + + | Race | White | + + + | Ethnic Group | Not or | + + + Author + + + | Author | On License Of [facility] [employer] [facility] | + + + | Organization | [facility] | + + + | Address | Unknown | + + + | Phone | Unavailable | + + + Support + + + + + | Name | Relationship | Address | Phone | + + + + + | Gabriel Greenberg | ECON | [address] | | | | | [place] | | | | | [address] | | + + + + + Care Team Providers + +------+ + | Care Warehouse Attendant Name | Role | Phone | + +------+ + | Jax Cabrera MD | PCP | | + +------+ + Reason for Visit +--------+ + | Reason | Comments | +--------+ + | Other | Please call patient with his lab results | +--------+ + Encounter Details +--------+ + + + + | Date | Type | Department | Care Team | Description | +--------+ + + + + | 02/26/ | Telephone | [facility] Primary Care | Fred, | Other (Please call | | 2017 | | at [facility] | MD Caio | patient with his lab | | | | [address] | [address] | results ) | | | | [address] | [address], | | | | | [address], 3rd floor | [place] [address] | | | | | [place], [place] | [phone] | | | | | [address] | | | | | | [phone] | | | +--------+ + + + [...]
--- OUTSIDE RECORDS SUMMARY | ~2019-11-25 | XMS | Encounter Summary ---
Demographics + + + | Address | [address] | | | [place] [address] | + + + | Home Phone | | + + + | Preferred Language | Unknown | + + + | Marital Status | Unmarried Domestic Partner | + + + | Advent Affiliation | NON | + + + | Race | White | + + + | Ethnic Group | Not or | + + + Author + + + | Author | [facility] [employer] [facility] | + + + | Organization | [facility] | + + + | Address | Unknown | + + + | Phone | Unavailable | + + + Support + + + + + | Name | Relationship | Address | Phone | + + + + + | Gabriel Greenberg | ECON | [address] | | | | | [place] | | | | | [address] | | + + + + + Care Team Providers + +------+ + | Care Programmer Engineering And Scientific Name | Role | Phone | + +------+ + | No Pcp Per Patient | PCP | Unavailable | + +------+ + Reason for Visit + + + | Reason | Comments | + + + | Lab Results | | + + + | Medication | | | management | | + + + Encounter Details +--------+---------+ + + + | Date | Type | Department | Care Team | Description | +--------+---------+ + + + | 03/09/ | Office | [facility] Primary Care | Fred | HIV (human | | 2016 | Visit | at [facility] | MD Caio | immunodeficiency | | | | [address] | [address] | virus infection) | | | | [address] | [address] [place], | ([facility]) (Primary Dx); | | | | Pavilion, 3rd floor | [place] [address] | Need for influenza | | | | [place], [place] | [phone] | vaccination; Nausea; | | | | [address] | | Heart murmur; | | | | [phone] | | Essential | | | | | | hypertension; | | | | | | Bipolar affective | | | | | | disorder, remission | | | | | | status unspecified | | | | | | ([facility]); Convulsions, | | | | | | unspecified | | | | | | convulsion type | | | | | | ([facility]) | +--------+---------+ + + + Social History [...] + + + | Blood Pressure | 150/88 | 03/09/2016 1:59 PM | | | | | PDT | | + + + + + | Pulse | 68 | 03/09/2016 1:59 PM | | | | | PDT | | + + + + + | Temperature | 36.6 C (97.9 F) | 03/09/2016 1:59 PM | | | | | PDT [...] + + + + | Weight | 73.7 kg (162 lb 8 | 03/09/2016 1:59 PM | | | | oz) | PDT | | + + + + + | Height | 167.6 cm (5' 6") | 03/09/2016 1:59 PM | | | | | PDT | | + + + + + | Body Mass Index | 26.23 | 03/09/2016 1:59 PM | | | | | PDT | | + + + + + documented in this encounter Patient Instructions Patient Instructions Caio Ibarra MD - 03/09/2016 3:11 PM Chacha Huerta It was a pleasure seeing you again today. Please continue the HIV meds as prescribed (prezcobix and turvada). It is very important to take medications correctly daily. You have been prescribed zofran to help with nausea assoc iated to the medications. Please call the clinic below for a new appointment. It is important that you have a PCP tracy r your home to manage your blood pressure (which is better today, but still a little higher than we would like), your seizure disorder, bipolar disorder and heart murmur). [facility] Internal Medicine Department [address] [place] [id number] Toll Free: View a Map | Get Driving Directions Hours Wednesday through Wednesday, 8 a.m. to 5 p.m. You will need labs drawn in 5 weeks. If you have a PCP in [place], we can fax the lab f orm to the that clinic. Please schedule a follow up in 5 weeks (if you are unable to have labs drawn in [place] ) or 2 months if you are able to have them drawn in [place]. documented in this encounter Progress Notes Caio Ibarra MD - 03/09/2016 5:51 PM PDTI am familiar with Mr. Giles's medical histo ry and the current active problems. I discussed the history, examination findings, managemen t options and treatment plan in detail with resident Dr. Vazquez at the time of this visi t on 03/09/2016. I was physically present in the examination room during lainez portions of th e service provided, including a review of review of decision-making that occurred. I provide d personal direction in the services rendered, ensuring that reasonable and necessary care w as provided. I have reviewed the resident s note and I agree with the findings, assessment , advice, orders and plan as they are documented with the following addition. Mr. Giles shomarci d continue with his current HIV medications. Biggest concerns are around his non-HIV issues. His distance from the clinic (4 hours) precludes the active management of these issues in a reasonable way. He agrees to find a provider closer to his home for his primary care manage ment of especially around his hyperetension and mental health concerns. He should consider r echeck labs in another 5 weeks on HAART. I can continue to be a communication consultant for his HIV manag ement. He agrees, to this. he was given options for agent telegrapher providers in [place] Caio Ibarra MD Jacob Aguila MD - 03/09/2016 3:32 PM PDTFormatting of this note might be different from the [facility] Internal Medicine Clinic/HIV Clinic Patient Active Problem List Diagnosis HIV (human immunodeficiency virus infection) (HCC) Hepatitis B Seizure (HCC) Bipolar affective disorder (HCC) Essential hypertension Back pain Convulsions (HCC) Chronic Diarrhea Hepatitis C Outpatient Prescriptions Marked as Taking for the 03/09/16 encounter (Office Visit) with amol Ibarra MD Medication Sig ondansetron 4 mg oral tablet Take one tablet by mouth daily as needed for nausea telmisartan 80 mg oral tablet Take 1 tablet by mouth once daily. Indications: HYPERTENS ION Chief Complaint Patient presents with Lab Results Medication management History of Present Illness: Ivan is a 50 y.o. male with history of above who presents f or follow up. Last seen by Dr. Ibarra on 02/07/2016. No current PCP. Ivan presents to clinic today with partner for follow up. Started prezcobix and truvada on 03/04/2016, with no missed doses in the past week. He is tolerating this regimen well, besides nausea. No emesis. Would like an antiemetic, specifically phenergan 25 mg daily. Re ports h/o nausea with initiation of HIV medications in the past, which usually improves over time. Bradley does not have a PCP in [place] at this time. He is dissatisfied with the care he tidwell s received in [place] and would prefer a PCP in [place] or [facility]. Restarted antihypertensive therapy approximately 3 weeks prior (telmisartan 80 mg daily). D enies any side effects, namely no dizziness, pre-syncope or syncopal episodes. Reports h/o CP and dyspnea (non since last visit), with subsequent urgent care visits (unclear what work up he has had). Also reports history of heart murmur and recent echo without significant f indings (per patient report, no recent records in care everywhere). No recent seizures (last approximately 2 months ago). Back on valproic acid, which he takes for h/o bipolar disorder and seizure prophylaxis. Bradley reports also being on cymbalta in t he past for mood symptoms. He is interested in restarting this medication. Reports recent stressors. Being charged with assault for incident that occurred during a se izure. Ivan denies any recent acute illnesses. He denies fevers, chills, night sweats, headach e, change in vision, odynophagia, cough, shortness of breath, chest pain, abdominal pain, vo miting, diarrhea (no changes to baseline, has IBS), peripheral paresthesias, weight loss or rashes. Review of Systems: As above, all other systems are negative. Reviewed social and family history and changes were updated in Epic. Physical Examination: BP 150/88 | Pulse 68 | Temp 36.6 C (97.9 F) | Ht 1.676 m (5' 6") | Wt 73.71 kg (162 lb 8 oz) | BMI 26.24 kg/(m^2) General: He is a well developed, well nourished alert, oriented, anxious, alert and orient ed x 3. Skin: No rash or petechiae. Lymph nodes: No significant cervical, supraclavicular or axillary adenopathy appreciated. HEENT: EOMI. PERRL. Conjunctivae pink. Sclera anicteric. Oropharynx: no oral hairy leukop obdulio, thrush or exudates. Mucous membranes are moist. Dentition appears good. Neck: Supple. Back: Normal stature, mild tenderness to palpation of mid-lumbar spine and left sacroiliac crest. Lungs: Clear to auscultation bilaterally with normal respiratory effort. Cardiac: Regular rhythm, normal rate. 3/6 HEATHER heard best at apex Abdomen: Soft, nontender. No hepatosplenomegaly or masses palpated. Extremities: WWP, no edema, nails with diffuse pitting Neurologic: Alert and oriented x3. Normal gait. Labs: Lab Results Component Value Date [id number] 382 02/07/2016 [id number] 28.3* 02/07/2016 HIVPCR [id number]* 02/07/2016 Lab Results Component Value Date RPR Non Reactive 02/07/2016 No results found for: CHOL, LDL, HDL, TRI Lab Results Component Value Date [id number] 25.9 02/07/2016 Last CBC, CMP reviewed with patient. Assessment and Plan: 1. HIV (human immunodeficiency virus infection) (HCC) Encouraged patient to continue with prezcobix and truvada daily. Reinforced importance of c onsistent dosing to limit resistance and improve disease management Plan: Continue prezcobix and truvada daily. Will need repeat labs in 5 weeks. - CBC, WITH DIFFERENTIAL; Future - COMPLETE METABOLIC SET; Future - HIV QUANTITATIVE PCR, PLASMA; Future - CD4; Future 2. Need for influenza vaccination - STAFF TO GIVE: INFLUENZA VACC, QUADRIVALENT, 3+ YEARS, IM [[id number]] - Recommended rosa maria degroot - (Covered by Medicare) 3. Nausea Encouraged patient to try ondansetron for nausea as phenergan can be more sedating and thus is not an optimal first line medication. - ondansetron 4 mg oral tablet; Take one tablet by mouth daily as needed for nausea Dispen se: 15 tablet; Refill: 0 4. Heart murmur HEATHER noted on exam today. Patient reports longstanding history of murmur with recent echocar diogram (no record in care everywhere). Recommend patient establish care with PCP near his h ome in [place] for further management. May need repeat echo if records can not be located. Also reports history of CP with dyspnea, no recent history. Will need cardiac risk stratifi cation including exercise stress test. -Follow up with PCP 5. Essential hypertension Blood pressure better control today, though still above goal of <140/90. Restarted ARB appr oximately 3 weeks prior. Recommend continuing ARB for now and following up with new PCP. May need 2nd agent for BP still above goal at next clinic recheck. -Continue with telmisartan 80 mg daily -Follow up with PCP 6. Bipolar affective disorder, remission status unspecified (HCC) -Continue valproic acid -Follow up with PCP/MH provider 7. Convulsions, unspecified convulsion type (HCC) -Continue valproic acid -Follow up with PCP/MH provider I asked patient during visit to return to clinic in 5 weeks (if unable to have labs drawn i n [place]) or 2 months (if able to have labs drawn in [place]) for routine follow up , sooner if acute issue arises. I spent more than 45 minutes [id number] with the patient of which greater than 50% was sp ent counseling the patient regarding HIV medications, and side effects including nausea and antiemetic therapy. Nicolle Vargas MD Chrissy John MA - 03/09/2016 2:02 PM PDT Patient is here today to address Chief Complaint Patient presents with Lab Results Medication management Vitals BP 150/88 | Pulse 68 | Temp 36.6 C (97.9 F) | Ht 1.676 m (5' 6") | Wt 73.71 kg (162 lb 8 oz) | BMI 26.24 kg/(m^2) Patient reports a pain level of 04 - Moderate today. History Smoking status Never Smoker Smokeless [...] to flu vaccine? No Prior history of Guillain-Brandywine syndrome? No (For patients receiving Fluarix): Allergy or sensitivity to Latex? Not applicable Consulted with regarding positive responses. documented in this e ncounter Plan of Treatment Not on filedocumented as of this encounter Visit Diagnoses + + | Diagnosis | + + | HIV (human immunodeficiency virus infection) (HCC) - Primary Asymptomatic human | | immunodeficiency virus (HIV) infection status | + + | Need for influenza vaccination Need for prophylactic vaccination and inoculation | | against influenza | + + | Nausea Nausea alone | + + | Heart murmur Undiagnosed cardiac murmurs | + + | Essential hypertension | + + | Bipolar affective disorder, remission status unspecified (HCC) | + + | Convulsions, unspecified convulsion type (HCC) | + + documented in this encounter
--- OUTSIDE RECORDS SUMMARY | ~2019-11-25 | XMS | Encounter Summary ---
Demographics + + + | Address | [address] | | | [place] [address] | + + + | Home Phone | | + + + | Preferred Language | Unknown | + + + | Marital Status | | + + + | Orthodoxy Affiliation | 1013 | + + + | Race | Unknown | + + + | Ethnic Group | Unknown | + + + Author + + + | Author | [facility] | | | and [place] | + + + | Organization | [facility] | | | [...] [place] | | | | | [address] | | + + + + + Care Team Providers + +------+ + | Care Director Of Fundraising Name | Role | Phone | + +------+ + | Jax Cabrera MD | PCP | | + +------+ + Encounter Details +--------+ + + + + | Date | Type | Department | Care Team | Description | +--------+ + + + + | 07/07/ | Hospital | [facility] | Skyler Dong, | | | 2020 | Encounter | [facility] | [address] | | | | | [address] | | | | | [address], | [place] [address] | | | | | [place] [address] | [phone] | | | | | [phone] | | | +--------+ + + + [...] [place] | | | | | | [address] | | | | | | | [...] | PST | + +---------+--------+ + + documented as of this encounter Visit Diagnoses Not on filedocumented in this encounter"
--- OUTSIDE RECORDS SUMMARY | ~2019-11-25 | XMS | Encounter Summary ---
Demographics + + + | Address | [address] | | | [place] [address] | + + + | Home Phone [...] [place] | | | | | [address] | | + + + + + Care Team Providers + +------+ + | Care Ncqa Specialist Name | Role | Phone | + +------+ + | No, Unknownpcp | PCP | | + +------+ + Encounter Details +--------+ + + + + | Date | Type | Department | Care Team | Description | +--------+ + + + + | 10/27/ | Emergency | [facility] | Later, Hakan Campbell DO | Bronchitis | | 2012 | | [facility] | [address] | | | | | EMERGENCY CLAIR | [place], [place] | | | | | [address] | [address] | | | | | CLAIR MD | [phone] | | | | | [address] | | | | | | [phone] | | | +--------+ + + + [...] ED Notes Conversion Transaction, Provider Unknown - 03/12/2013 9:33 PM PDTFormatting of this note m ight be different from the original. ED Notes by Shania Donnelly RN at 03/12/132132 Author: Shania Donnelly RN Service: (none) Author Type: Registered Nurse Filed: 03/12/132132 Date of Service: 03/12/132132 Status: Signed Engineering Project Designer: Shania Donnelly RN (Registered Nurse) Dr. Jacobsen, PT's ID physician called for Dr. Robles. Shania Donnelly RN 03/12/132132 onver martine Transaction, Provider Unknown - 03/12/2013 8:09 PM PDT ED Notes by Marya Tao at 03/12/132008 Author: Marya Tao Service: (none) Author Type: Technologist Filed: 03/12/132008 Date of Service: 03/12/132008 Status: Signed Engineering Project Designer: Marya Tao (Technologist) Pt back in room after CXR. CLT Marya Tao 03/12/132008 aterHakan DO - 03/12/2013 7:30 PM PDTFormatting of this note might be different from the or iginal. ED Provider Notes by Hakan Robles DO at 03/12/131929 Author: Hakan Robles DO Service: (none) Author Type: Physician Filed: 03/15/13 0501 Date of Service: 03/12/131929 Status: Signed Engineering Project Designer: Hakan Robles DO (Physician) [facility] Department of Emergency Medicine 7:37 PM History of Present Illness Patient Identification Michael Chavez is a 47 y.o. male. Patient information was obtained from patient. History/Exam limitations: none. Patient presented to the Emergency Department by: Car Chief Complaint Chief Complaint Patient presents with URI Cough Fatigue The patient presents to ED with complaints of cough. Onset of symptoms was about a week ago , with a worsening course since that time. The symptoms are described to be of moderate meri rity. The patient states that the sx started as a head cold and moved into his chest and he developed a productive cough. The patient also complains of mld SOB, vomiting secondary to cough and nasal congestion. Patient denies fever and bloody sputum. Care prior to arrival co nsisted of OTC medication, with no relief. Pt has h/o Hep C and is currently undergoing shayne tment with Dr. Jacobsen, infectious disease. PCP: WOODY JACOBSEN Past Medical History Diagnosis Date Hypertension Joint pain HIV infection 1988 Hepatitis C 2002 Seizures Other chronic pain back pain IBS (irritable bowel syndrome) Asthma Neuromuscular disorder Past Surgical History Procedure Date Cholecystectomy Unlisted procedure arthroscopy Hernia repair hiatal Tonsillectomy Lumbar epidural injection 03-15-12 Bilat L5 TFESI (at [facility]) Caudal block 05-27-12 Caudal w/ cath target Bilat L5, S1 Caudal block 07-05-12 Caudal w/ cath target Bilat L5, S1 Prior to Admission medications Medication Sig Start Date End Date Taking? Authorizing Provider ALBUTEROL IN Inhale into the lungs. Historical Provider dexlansoprazole (DEXILANT) 60 MG capsule Take 60 mg by mouth every morning before breakfast . Historical Provider DIPHENOXYLATE-ATROPINE PO Take by mouth 4 (four) times daily. Historical Provider divalproex (DEPAKOTE) 250 MG EC tablet Take 250 mg by mouth 2 (two) times daily. Histori kash Provider duloxetine (CYMBALTA) 30 MG capsule Take 30 mg by mouth daily. Historical Provider Loperamide HCl (ANTI-DIARRHEAL PO) Take by mouth. Historical Provider loratadine (CLARITIN) 10 MG tablet Take 10 mg by mouth daily. Historical Provider LORazepam (ATIVAN) 1 MG tablet Take 1 mg by mouth every 6 (six) hours as needed. Histori kash Provider naproxen (NAPROSYN) 500 MG tablet Take 500 mg by mouth 2 (two) times daily with meals. H istorical Provider ondansetron (ZOFRAN) 8 MG tablet Take 8 mg by mouth every 8 (eight) hours as needed. His torical Provider pregabalin (LYRICA) 150 MG capsule Take 150 mg by mouth 2 (two) times daily. Historica l Provider promethazine (PHENERGAN) 25 MG tablet Take 25 mg by mouth every 8 (eight) hours as needed. Historical Provider raltegravir (ISENTRESS) 400 MG tablet Take 400 mg by mouth 2 (two) times daily. Histor ical Provider salmeterol (SEREVENT) 50 MCG/DOSE diskus inhaler Inhale 1 puff into the lungs 2 (two) times daily. Historical Provider sumatriptan (IMITREX) 100 MG tablet Take 100 mg by mouth every 8 (eight) hours as needed. Indications: Migraine Headache Historical Provider trazodone (DESYREL) 100 MG tablet Take 100 mg by mouth nightly. Historical Provider No Known Allergies History Social History Marital Status: Single Spouse Name: N/A Number of Children: N/A Years of Education: N/A Occupational History Not on file. Social History Main Topics Smoking status: Never Smoker Smokeless tobacco: Never Used Alcohol Use: No Drug Use: No not for 19 years Sexually Active: Other Topics Concern Not on file Social History Narrative No narrative on file Family History Problem Relation Age of Onset Cancer Mother Diabetes type II Mother Cancer Father Diabetes type II Father Review of Systems Constitutional: Negative for fever, chills Eyes: Negative for vision changes Nose: Negative for nosebleeds Positive for nasal congestion Throat: Negative for sore throat CV/Resp: Negative for chest pain Positive for qrcfzrhgu-cu-lcigrc, cough GI: Negative for abdominal pain, nausea or diarrhea Positive for vomiting secondary to cough : Negative for urinary problems Musculoskeletal: Negative for back pain, joint pain Skin: Negative for rash Neuro/Psych: Negative for headache Endo/heme/Lymph: Negative for swollen lymph nodes, easy bruising All other systems reviewed and negative except as noted. Physical Exam BP 162/90 | Pulse 93 | Temp 98.4 F (36.9 C) | Resp 18 | Wt 71.033 kg (156 lb 9.6 oz) | SpO2 96% Vital signs interpretation: HTN, but otherwise WNL Pulse Oximetry interpretation: Normal General: Alert, in no apparent distress Eyes: Normal inspection, pupils equal and round, non-icteric ENT: Ears normal Nose normal Dry mucus membranes Neck: Normal inspection Supple Cardiovascular: Rate and rhythm normal No murmurs Respiratory: Breath sounds normal bilaterally No rales, wheezing or rhonchi Abdomen: Soft, non-tender, non-distended No guarding or rebound Genitourinary: Deferred Rectal exam: Deferred Back: Normal inspection Skin: Color normal Warm and dry No rash Neuro: Alert, no AMS No gross motor/sensory deficits Medical Decision Making and Emergency Department Course ED Department Course Patient presents to ED with complaints of productive cough. On exam the patient has dry muc us membranes, but is otherwise WNL. My DDx includes, but is not limited to: bacterial pneumo jose versus PCP pneumonia. Will order CXR, labs, and reevaluate the patient. 8:55 PM. CXR results are unremarkable. 9:32 PM. Discussed case with Dr. Jacobsen, infectious disease, who believes the pt is not a t risk for opportunistic infections. He suggests that I treat this as a bronchitis or viral URI. 9:35 PM. Patient reevaluation. Patient is stable and feeling better at this time. I discuss ed ED results and my clinical impression with the patient. Patient is ready for discharge. I advised patient to follow up with a PCP and we discussed the emergent signs and symptoms th at would necessitate a return to ED. All questions and concerns addressed. Pt understands an d agrees with plan. Will discharge home with Rx for tussionex. Records Reviewed Old medical records. Nursing notes. Previous [facility] ED visits for unrelated complaints. Laboratory Evaluation Results Procedure Component Value Ref Range Date/Time aPTT [[id number]] Collected:03/12/131935 Order Status:Completed Updated:03/12/132007 Specimen Information:Blood APTT 27 23 - 32 seconds Protime [[id number]] Collected:03/12/131935 Order Status:Completed Updated:03/12/132007 Specimen Information:Blood INR 1.1 Comprehensive metabolic panel [[id number]] (Abnormal) Collected:03/12/131935 Order Status:Completed Updated:03/12/132003 Specimen Information:Blood SODIUM 139 135 - 143 mmol/L POTASSIUM 3.7 3.5 - 4.9 mmol/L CHLORIDE 99 99 - 109 mmol/L CO2 26 23 - 32 mmol/L ANION GAP AGAP 17 5 - 20 mmol/L GLUCOSE 98 65 - 99 mg/dL BUN 16 8 - 25 mg/dL CREATININE 1.1 0.70 - 1.30 mg/dL BUN/CREAT 15 CALCIUM 8.8 8.5 - 10.2 mg/dL TOTAL PROTEIN 7.6 6.3 - 8.2 g/dL Albumin 3.7 3.6 - 5.0 g/dL GLOBULIN 3.9 1.3 - 4.9 g/dL A/G 0.9 (L) 1.0 - 2.4 TBIL 0.6 0.1 - 1.5 mg/dL ALK PHOS 88 35 - 115 U/L AST 24 10 - 45 U/L ALT 71 (H) 10 - 65 U/L EGFR >60 >60 mL/min/1.73m2 Lipase [[id number]] Collected:03/12/131935 Order Status:Completed Updated:03/12/132003 Specimen Information:Blood LIPASE 225 73 - 393 U/L CBC with differential [[id number]] (Abnormal) Collected:03/12/131935 Order Status:Completed Updated:03/12/131946 Specimen Information:Blood WBC 8.1 3.8 - 11.0 K/uL RBC 4.82 4.20 - 5.70 M/uL HGB 14.4 13.2 - 17.0 g/dL HCT 41.4 39.0 - 50.0 % MCV 85.8 80.0 - 100.0 fl MCH 29.8 27.0 - 34.0 pg MCHC 34.7 32.0 - 35.5 g/dL RDW SD 42.9 37 - 53 fl PLT 171 150 - 400 K/uL MPV 8.4 fl DIFF TYPE AUTOMATED NEUTROPHILS 53.5 % LYMPHOCYTES 31.9 % MONOCYTES 12.0 % EOSINOPHILS 2.2 % BASOPHILS 0.4 % NEUTROPHILS ABS 4.4 1.9 - 7.4 K/uL LYMPHOCYTES ABS 2.6 1.0 - 3.9 K/uL MONOCYTES ABS 1.0 (H) 0 - 0.8 K/uL EOSINOPHILS ABS 0.2 0 - 0.5 K/uL BASOPHILS ABS 0.0 0 - 0.1 K/uL I personally reviewed the lab results and they have been posted to the chart. Pertinent po sitive and negative findings have been addressed appropriately. Radiology and EKG Evaluation Imaging Results X-ray chest 2 view frontal & lateral (Final result) Result time:03/12/132208 Final result by Rad Results In Eric (03/12/13 22:09:26) Impression: 1. No acute process. Narrative: MICHAEL CHAVEZ XR CHEST 2 VIEW FRONTAL AND LATERAL HISTORY: 47 years. Male. Pneumonia. TECHNIQUE: Frontal and lateral views of the chest were obtained. COMPARISON: 01/30/2011. FINDINGS: The heart is normal in size. No pulmonary vascular congestion. No pneumothorax. No focal ai rspace disease or pleural effusion. ED Interpretation Documented by Saurabh Skaggs (03/12/132054, [facility] in [place], Emergency Medicine) No infiltrates or effusions. Normal heart size. Normal mediastinum. CXR viewed independently and interpreted by me contemporaneously: Hakan Robles DO ED Diagnosis Final diagnosis Bronchitis Disposition: ED Disposition Discharge Condition at discharge: Stable Follow-up Information Follow up With Details Comments Contact Info [facility] Emergency Department in [place] As needed if symptoms worsen [address] [facility] [id number] Woody Jacobsen MD Call in 2 days for appointment [phone] Discharge Medications: New Prescriptions HYDROCOD POLST-CHLORPHEN POLST (TUSSIONEX PENNKINETIC ER) 10-8 MG/5ML LQCR Take 10 mLs by mouth every 12 (twelve) hours as needed. Additional Documentation Procedures Attending Note: Documentation assistance provided by Saurabh Skaggs (Scribe). Information recorded by the scribe has been reviewed and validated by me. Gregory solano with its contents. DO Hakan Mas DO 03/15/13 0502 documented in this en counter Plan of [...] PAZ | | | | | | [id number] | | | | | | | | +--------+---------+ + + + documented as of this encounter Procedures + +--------+ + + + | Procedure Name | Priori | Date/Time | Associated Diagnosis | Comments | | | ty | | | | + +--------+ + + + | XR CHEST 2 VIEWS | Routin | 03/12/2013 | | Results for this | | | e | 8:10 PM | | procedure are in the | | | | PDT | | results section. | + +--------+ + + + | CULTURE, BLOOD, 2ND | STAT | 03/12/2013 | | Results for this | | SPECIMEN (NON-ORD) | | 7:45 PM | | procedure are in the | | | | PDT | | results section. | + +--------+ + + + | CULTURE, BLOOD | STAT | 03/12/2013 | | Results for this | | | | 7:35 PM | | procedure are in the | | | | PDT | | results section. | + +--------+ + + + documented in this encounter Results XR Chest 2 Vws (03/12/2013 8:10 PM PDT) + + | Specimen | + + | | + + + + + | Impressions | Performed At | + + + | 1. No acute process. | | + + + + + + | Narrative | Performed At | + + + | MICHAEL Nigel SCOTT XR CHEST 2 VIEW FRONTAL AND LATERAL HISTORY: 47 | | | years. Male. Pneumonia. TECHNIQUE: Frontal and lateral views of | | | the chest were obtained. COMPARISON: 01/30/2011. FINDINGS: | | | The heart is normal in size. No pulmonary vascular congestion. No | | | pneumothorax. No focal airspace disease or pleural effusion. | | + + + + + | Procedure Note | + + | Eric, Rad Conversion - 01/06/2019 6:59 PM PDT MICHAEL CHAVEZXR CHEST 2 VIEW FRONTAL | | AND LATERAL HISTORY:47 years. Male. Pneumonia. TECHNIQUE:Frontal and lateral views of | | the chest were obtained. COMPARISON:01/30/2011. FINDINGS:The heart is normal in size. No | | pulmonary vascular congestion. No pneumothorax. No focal airspace disease or pleural | | effusion. IMPRESSION: 1. No acute process. | |TECHNIQUE: | |Frontal and lateral views of the chest were obtained. | | | |COMPARISON: | |01/30/2011. | | | |FINDINGS: | |The heart is normal in size. No pulmonary vascular congestion. No pneumothorax. No focal ai rspace disease or pleural effusion. | | | |IMPRESSION: | |1. No acute process. | | | | | + + Culture, Blood, 2nd Specimen (03/12/2013 7:45 PM PDT) + + | Specimen | + + | Blood specimen | | (specimen) | + + + + + | Narrative | Performed At | + + + | Specimen Description BLOOD, PERIPHERAL DRAW | EXTERNAL LAB | | Testing performed | | | at [facility], [address] [place] [address] [place] [address] SPECIAL REQUESTS | | | REPEAT TEST USING ALTERNATE ASSAYED CONTROL | | | MATERIAL Testing | | | performed at [facility], [address] [place] [address] [place] [address] CULTURE | | | NO GROWTH 6 DAYS | | | Testing performed at [facility], [address] | | [place] [address] REPORT STATUS | | | 03/18/2013 FINAL | | + + + + +---------+ + + | Performing | Address | City/State/Zipcode | Phone Number | | Organization | | | | + +---------+ + + | EXTERNAL LAB | | | | + +---------+ + + Culture, Blood (03/12/2013 7:35 PM PDT) + + | Specimen | + + | Blood specimen | | (specimen) | + + + + + | Narrative | Performed At | + + + | Specimen Description BLOOD, PERIPHERAL DRAW | EXTERNAL LAB | | Testing performed | | | at [facility], [address] [facility] [place] [address] SPECIAL REQUESTS | | | LAC | | | Testing performed at [facility], [address], | | | [place] [address] CULTURE | | | NO GROWTH 6 DAYS | | | Testing performed at [facility], [address] [place] | | | [address] REPORT STATUS 03/18/2013 | | | FINAL | | + + + + +---------+ + + | Performing | Address | City/State/Zipcode | Phone Number | | Organization | | | | + +---------+ + + | EXTERNAL LAB | | | | + +---------+ + + documented in this encounter Visit Diagnoses + + | Diagnosis | + + | Bronchitis Bronchitis, not specified as acute or chronic | + + documented in this encounter"
--- OUTSIDE RECORDS SUMMARY | ~2019-11-25 | XMS | Encounter Summary ---
Demographics + + + | Address | [address] | | | [place] [address] | + + + | Home Phone [...] + + | Author | [facility] [employer] [facility] | + + [...] [place] | | | | | [address] | | + + + + + Care Team Providers + +------+ + | Care Lease Picker Name | Role | Phone | [...] + + | 03/09/ | Office | [facility] Primary Care | Fred | HIV (human | | 2016 | Visit | at [facility] | MD Caio | immunodeficiency | | | | [address] | [address] | virus infection) | | | | [address] | [address] [place], | ([facility]) (Primary Dx); | | | | [address], 3rd floor | [place] [address] | Need for influenza | | | | [place], [place] | [phone] | vaccination; Nausea; | | | | [address] | | Heart murmur; | | | | [phone] | | Essential | | | | | | hypertension; | | | | | | Bipolar affective | | | | | | disorder, remission | | | | | | status unspecified | | | | | | ([facility]); Convulsions, | | | | | | unspecified | | | | | | convulsion type | | | | | | ([facility]) | +--------+---------+ + + + Social History [...] seizure disorder, bipolar disorder and heart murmur). [facility] Internal Medicine Department [address] [place] [phone] Toll Free: View a Map | Get Driving Directions Hours Wednesday through Wednesday, 8 a.m. to 5 p.m. You will need labs drawn in 5 weeks. If you have a PCP in [place], we can fax the lab f orm to the that clinic. Please schedule a follow up in 5 weeks (if you are unable to have labs drawn in [place] ) or 2 months if you are able to have them drawn in [place]. documented in this encounter Progress Notes Caio [...] HAART. I can continue to be a network consultant for his HIV manag ement. He agrees, to this. he was given options for hot top liner helper providers in [place] Caio Ibarra MD Jacob Aguila MD - 03/09/2016 3:32 PM PDTFormatting of this note might be different from the [facility] Internal Medicine Clinic/HIV Clinic Patient Active Problem [...] Bradley does not have a PCP in [place] at this time. He is dissatisfied with the care he tidwell s received in [place] and would prefer a PCP in [place] or [facility]. Restarted antihypertensive therapy approximately 3 weeks prior [...] gait. Labs: Lab Results Component Value Date [id number] 382 02/07/2016 [id number] 28.3* 02/07/2016 HIVPCR 92962* 02/07/2016 Lab Results Component Value Date RPR Non Reactive 02/07/2016 No results found for: CHOL, LDL, HDL, TRI Lab Results Component Value Date [id number] 25.9 02/07/2016 Last CBC, CMP reviewed with [...] GIVE: INFLUENZA VACC, QUADRIVALENT, 3+ YEARS, IM [[id number]] - Recommended rosa maria degroot - (Covered [...] with PCP near his h ome in [place] for further management. May need repeat echo [...] unable to have labs drawn i n [place]) or 2 months (if able to have labs drawn in [place]) for routine follow up , sooner if acute issue arises. I spent more than 45 minutes [id number] with the patient of which greater than [...] to flu vaccine? No Prior history of Guillain-Gunnison syndrome? No (For patients receiving Fluarix): Allergy [...]
--- OUTSIDE RECORDS SUMMARY | ~2019-11-25 | XMS | Encounter Summary ---
Demographics + + + | Address | [address] | | | [place] [address] | + + + | Home Phone [...] + + | Author | [facility] [employer] [facility] | + + + | [...] [place] | | | | | [address] | | + + + + + Care Team Providers + +------+ + | Care Video Player Mechanic Name | Role | Phone | [...] Caio | | | | | | [address] | | | | | | [place], | | | | | | [place] [address] | | | | | | [phone] | | | | | | | [...]
--- OUTSIDE RECORDS SUMMARY | ~2019-11-25 | XMS | Encounter Summary ---
Demographics + + + | Address | [address] | | | [place] [address] | + + + | Home Phone | | + + + | Preferred Language | Unknown | + + + | Marital Status | Unmarried Domestic Partner | + + + | Pentecostal Affiliation | NON | + + + | Race | White | + + + | Ethnic Group | Not or | + + + Author + + + | Author | [facility] | + + + | Organization | [facility] | + + + | Address | Unknown | + + + | Phone | Unavailable | + + + Support + + + + + | Name | Relationship | Address | Phone | + + + + + | Gabriel Greenberg | ECON | [address] | | | | | [place] | | | | | [address] | | + + + + + Care Team Providers + +------+ + | Care Buffing Machine Tender Name | Role | Phone | + [...] + + | 06/29/ | Documentati | [facility] Primary Care | Fred | Prior Authorization | | 2017 | on | at [facility] | MD Caio | Request - Medication | | | | [address] | [address] | (MYTESI APPROVED) | | | | [address] | [address] [place], | | | | | [place], [address] [place] [address] | [place] [address] | | | | | [place], [place] | [phone] | | | | | [address] | | | | | | [phone] | | | +--------+ + + + [...]
--- OUTSIDE RECORDS SUMMARY | ~2019-11-25 | XMS | Encounter Summary ---
Demographics + + + | Address | [address] | | | [place] [address] | + + + | Home Phone [...] Author + + + | Author | [facility] | + + + | Organization | [facility] | + + + | Address | Unknown | + + + | Phone | Unavailable | + + + Support + + + + + | Name | Relationship | Address | Phone | + + + + + | Gabriel Greenberg | ECON | [address] | | | | | [place] | | | | | [address] | | + + + + + Care Team Providers + +------+ + | Care Education Liaison Name | Role | Phone | + +------+ + | Jax Cabrera MD | PCP | | + +------+ + Reason for Visit + + + | Reason | Comments | + + + | Refill Request | Vitamin D | + + + Encounter Details +--------+--------+ + + + | Date | Type | Department | Care Team | Description | +--------+--------+ + + + | 08/18/ | Refill | [facility] Primary Care | Fred, | Refill Request | | 2017 | | at [facility] | MD Caio | (Vitamin D ) | | | | [address] | [address] | | | | | [address] | [address] [facility], | | | | | Pavilion, 3rd floor | [place] [address] | | | | | [place], [place] | [phone] | | | | | [address] | | | | | | [phone] | | | +--------+--------+ + + + [...] + | Diagnosis | + + | Vitamin D deficiency - Primary | + + documented in this encounter"
--- OUTSIDE RECORDS SUMMARY | ~2019-11-25 | XMS | Encounter Summary ---
Demographics + + + | Address | [address] | | | [place] [address] | + + + | Home Phone | | + + + | Preferred Language | Unknown | + + + | Marital Status | Unmarried Domestic Partner | + + + | Sikh Affiliation | NON | + + + | Race | White | + + + | Ethnic Group | Not or | + + + Author + + + | Author | [facility] | + + + | [...] [place] | | | | | [address] | | + + + + + Care Team Providers + +------+ + | Care Rolling Mill Plugger Name | Role | Phone | + [...] | | | | | [address] [place], | | | | | | [place] [address] | | | +--------+ + + + [...]
--- OUTSIDE RECORDS SUMMARY | ~2019-11-25 | XMS | Encounter Summary ---
Demographics + + + | Address | [address] | | | [place] [address] | + + + | Home Phone | | + + + | Preferred Language | Unknown | + + + | Marital Status | Unmarried Domestic Partner | + + + | Mormon Affiliation | NON | + + + | Race | White | + + + | Ethnic Group | Not or | + + + Author + + + | Author | [facility] [employer] [facility] | + + + | Organization | [...] [place] | | | | | [address] | | + + + + + Care Team Providers + +------+ + | Care Chain Forming Machine Operator Name | Role | Phone [...] | | | [address] | [facility], | | | | | [place], | [place] [address] | | | | | 4th floor [place], | [phone] | | | | | [place] [address] | | | | | | [phone] | | | +--------+ + + + [...] | MRN: | [facility] | | [id number] Date: 03/08/2017Patient Name: Ivan Nicole #: | SUJEY COPY | | [id number] of : 1965CSN: [id number] Type: | | | AmbulatoryRoom: GI 2Procedure: ColonoscopyIndications: | | | Screening for colorectal malignant neoplasmProviders: | | | SOILA ARRIAGA MD (Doctor), GWENDOLYN KHALIL RN | | | (Nurse), NED ALEX, Crisis Mental Health Therapist | | | (Crisis Mental Health Therapist)Referring MD: CHRISTAL GUERRERO MDRequesting | | | [...] the procedure. | | | The Olympus [id number] Colonoscope #[id number] was | | | introduced through the [...] | | Initiated On: 03/08/2017 8:10 [facility] Letter to: JAX CABRERA MD [...] + + | Performing | Address | City/State[facility] | Phone Number | | Organization [...]
--- OUTSIDE RECORDS SUMMARY | ~2019-11-25 | XMS | Encounter Summary ---
Demographics + + + | Address | [address] | | | [place] [address] | + + + | Home Phone [...] + | Author | [facility] Training Advisor [facility] | + + + | Organization [...] [place] | | | | | [address] | | + + + + + Care Team Providers + +------+ + | Care Diesel Retrofit Designer Name | Role | Phone | [...] | | | | | | Darvin [facility] | | | | | | | Hospital | | | | | | | [place], [place] | | | | | | | [address] | | | | | | | Phone: | | | | | | | [phone] | +--------+--------+ + + + + Encounter Details +--------+ + + + + | Date | Type | Department | Care Team | Description | +--------+ + + + + | 11/02/ | Emergency | [facility] Emergency | [place], | | | 2009 | | Department 0 | MD Jed | | | | | Fredi Redding | Erwin Cobb | | | | | [facility] | [facility] | | | | | [place], [place] | [place] [address] | | | | | [address] | EMERGENCY | | | | | [phone] | [place] [address] | | | | | | [phone] | | | | | | | [...] until given the OK by your caregiver. [facility] Patient Information 2006 [employer]. Hypokalemia (Low Potassium) You have low blood [...] include: Bananas Raisins & dried fruits Meats [place] juice Kiwi Peanut butter Bran Potatoes Dried peas Legumes (beans) [place] [employer] If your caregiver has prescribed a potassium supplement for you today or adjusted your medi cations, keep all suggested visits for rechecks as directed. [facility] Patient Information 2007 [employer]. documented in this encounter Plan of Treatment [...] FAUSTO IBANEZ | [address] | [place], [place] | | | [facility] | [address] | [address] | | | TESTS | | | [...] | + + + + + | [facility] | [address] | [place] [address] | | | PATHOLOGY | [address] [...] TRICHOMONAS | Not Recd | /hpf | [facility] | | | | | | DEPARTMENT [...] | + + + + + | [facility] DEPARTMENT OF | [address] | [place] [address] | | | PATHOLOGY | [address] [...] + + + + | [facility] | [address] | [place] [address] | | | PATHOLOGY | [address] [...] | + + + + + | [facility] DEPARTMENT OF | [address] | [place] [address] | | | PATHOLOGY | [address] [...] | | | DEPARTMENT | | | [place]OTTISH | | | OF | | | [...] | + + + + + | [facility] | [address] | [place] [address] | | | PATHOLOGY | [address] [...]
--- OUTSIDE RECORDS SUMMARY | ~2019-11-25 | XMS | Encounter Summary ---
Demographics + + + | Address | [address] | | | [place] [address] | + + + | Home Phone | | + + + | Preferred Language | Unknown | + + + | Marital Status | Unmarried Domestic Partner | + + + | Taoist Affiliation | NON | + + + | Race | White | + + + | Ethnic Group | Not or | + + + Author + + + | Author | [facility] | + + + | Organization | [facility] | + + + | Address | Unknown | + + + | Phone | Unavailable | + + + Support + + + + + | Name | Relationship | Address | Phone | + + + + + | Gabriel Greenberg | ECON | [address] | | | | | [place] | | | | | [address] | | + + + + + Care Team Providers + +------+ + | Care Food Consultant Name | Role | Phone | [...] + | 01/22/ | Documentati | [facility] Primary Care | Fred, | HIV (phone intake | | 2016 | on | at [facility] | MD Caio | interview) | | | | [address] | [address] | | | | | Loop Physician's | [address] [place], | | | | | Pavilion, 3rd floor | [place] [address] | | | | | [place], [place] | [phone] | | | | | [address] | | | | | | [phone] | | | +--------+ + + + [...]
--- OUTSIDE RECORDS SUMMARY | ~2019-11-25 | XMS | Encounter Summary ---
Demographics + + + | Address | [address] | | | [place] [address] | + + + | Home Phone | | + + + | Preferred Language | Unknown | + + + | Marital Status | Unmarried Domestic Partner | + + + | Hindu Affiliation | NON | + + + | Race | White | + + + | Ethnic Group | Not or | + + + Author + + + | Author | [facility] | + + + [...] [place] | | | | | [address] | | + + + + + Care Team Providers + +------+ + | Care Operator Control Room Name | Role | Phone | + +------+ + | Jax Cabrera MD | PCP | | + +------+ + Reason for Visit + + + | Reason | Comments | + + + | Lab Order | | + + + Encounter Details +--------+ + + + + | Date | Type | Department | Care Team | Description | +--------+ + + + + | 01/26/ | Telephone | [facility] | Fred, | Lab Order | | 2017 | | at [facility] | MD Caio | | | | | [address] [place] | [address] | | | | | Loop Physician's | [address] [facility], | | | | | [place], 3rd floor | [place] [address] | | | | | [place], [place] | [phone] | | | | | [address] | | | | | | [phone] | | | +--------+ + + + [...] as of this encounter Plan of Treatment + +------+--------+ + + | Name | Type | Priori | Associated Diagnoses | Order Schedule | | | | ty | | | + +------+--------+ + + | CBC, WITH | Lab | Routin | HIV (human | Ordered: 01/26/2017 | | DIFFERENTIAL | | e | immunodeficiency | | | | | | virus infection) | | | | | | (HCC) | | + +------+--------+ + + | CD4 (T CELL), BLOOD | Lab | Routin | HIV (human | Ordered: 01/26/2017 | | | | e | immunodeficiency | | | | | | virus infection) | | | | | | (HCC) | | + +------+--------+ + + | COMPLETE METABOLIC | Lab | Routin | HIV (human | Ordered: 01/26/2017 | | SET | | e | immunodeficiency | | | (NA,K,CL,CO2,BUN,CRE | | | virus infection) | | | AT,GLUC,CA,AST,ALT,B | | | ([facility]) | | | TORIBIO TOTAL,ALK | | | | | | PHOS,ALB,PROT TOTAL) | | | | | + +------+--------+ + + | HIV QUANTITATIVE | Lab | Routin | HIV (human | Ordered: 01/26/2017 | | PCR, PLASMA | | e | immunodeficiency | | | | | | virus infection) | | | | | | (HCC) | | + +------+--------+ + + | RPR SERUM | Lab | Routin | HIV (human | Ordered: 01/26/2017 | | | | e | immunodeficiency | | | | | | virus infection) | | | | | | (HCC) | | + +------+--------+ + + documented as of this encounter Visit Diagnoses + + | Diagnosis | + + | HIV (human immunodeficiency virus infection) (HCC) - Primary Asymptomatic human | | immunodeficiency virus (HIV) infection status | + + documented in this encounter"
--- OUTSIDE RECORDS SUMMARY | ~2019-11-25 | XMS | Encounter Summary ---
Demographics + + + | Address | [address] | | | [place] [address] | + + + | Home Phone | | + + + | Preferred Language | Unknown | + + + | Marital Status | | + + + | Muslim Affiliation | 1013 | + + + | Race | Unknown | + + + | Ethnic Group | Unknown | + + + Author + + + | Author | [facility] | | | and [place] | + + + | Organization | [facility] | | | [...] [place] | | | | | [address] | | + + + + + Care Team Providers + +------+ + | Care Rn First Assist Name | Role | Phone | + +------+ + | Jax Cabrera MD | PCP | | + +------+ + Encounter Details +--------+ + + + + | Date | Type | Department | Care Team | Description | +--------+ + + + + | 08/23/ | Orders Only | [facility] | Deyvi Kovacs, | | | 2019 | | [facility] | PATTERN PERFORATING MACHINE OPERATOR [address] | | | | | [address] | | | | | [address] | [place] [address] | | | | | [place], [place] | [phone] | | | | | [address] | | | | | | [phone] | | | +--------+ + + + [...] 12/05/ | Office | Pain Medicine | Laraiso, Vitaliy G, | | | 2020 | Visit | | DO [address] | | | | | | [place] | | | | | | [address] | | | | | | | | +--------+---------+ + + + documented as of this encounter Visit Diagnoses Not on filedocumented in this encounter"
--- OUTSIDE RECORDS SUMMARY | ~2019-11-25 | XMS | Encounter Summary ---
Demographics + + + | Address | [address] | | | [place] [address] | + + + | Home Phone | | + + + | Preferred Language | Unknown | + + + | Marital Status | | + + + | Adventism Affiliation | 1013 | + + + [...] [place] | | | | | [address] | | + + + + + Care Team Providers + +------+ + | Care Supervisor Boat Outfitting Name | Role | Phone | + +------+ + PCP | Unavailable | + +------+ + Encounter Details +--------+ + + + + | Date | Type | Department | Care Team | Description | +--------+ + + + + | 07/22/ | Emergency | [facility] | Porsche Win, | Unspecified | | 2010 | | [facility]ENTER | MD [address] | psychosis | | | | EMERGENCY CENTER | [place] [address] | | | | | [address] | [phone] | | | | | [place], [place] | | | | | | [address] | | | | | | [phone] | | | +--------+ + + + [...] [place] | | | | | | [address] | | | | | | | | +--------+---------+ + + + documented as of this encounter Procedures + +--------+ + + + | Procedure Name | Priori | Date/Time | Associated Diagnosis | Comments | | | ty | | | | + +--------+ + + + | CT HEAD WO CONTRAST | Routin | 07/22/2010 | | Results for this | | | e | 10:31 AM | | procedure are in the | | | | PST | | results section. | + +--------+ + + + documented in this encounter Results CT Head wo Contrast (07/22/2010 10:31 AM PST) + + | Specimen | + + | | + + + + + | Narrative | Performed At | + + + | [facility] [address] Ph: | | | Patient Name: CHAN MICHAEL Nigel Date of : | | | 1965 Medical Record: [id number] Account: [id number] | | | Exam Date/Time: 07/22/2010 10:03 Ordering | | | Physician: PORSCHE WIN Order Detail: [id number] Exam Description: | | | CT HEAD UN | | | | | | HISTORY: Head injury. SCANNING PROTOCOL: 5-mm axial sections | | | were obtained to the head without IV contrast. FINDINGS: Compared | | | with August 19, 2009. No midline shift. Ventricles are normal in | | | size. No hydrocephalus. There is no evidence of intracranial | | | mass, hemorrhage, or infarction. There is partial opacification of | | | ethmoid sinuses bilaterally, suggesting sinusitis. IMPRESSION: 1. | | | Bilateral ethmoid sinusitis, otherwise negative noncontrast head | | | CT. | | | 10:37 AM | | + + + + + | Procedure Note | + + | [place] Conversion - 01/07/2019 12:34 PM PDT | | [facility] | | [facility] [address] | | | | | | Patient Name: MICHAEL CHAVEZ | | Date of : 1965 | | Medical Record: [id number] | | Account: [id number] | | | | | | Exam Date/Time: 07/22/2010 10:03 | | Ordering Physician: PORSCHE WIN | | Order Detail: [id number] | | Exam Description: CT HEAD UN | | | | HISTORY: | | Head injury. | | | | SCANNING PROTOCOL: | | 5-mm axial sections were obtained to the head without IV contrast. | | | | FINDINGS: | | Compared with August 19, 2009. | | | | No midline shift. Ventricles are normal in size. No hydrocephalus. There | | is no evidence of intracranial mass, hemorrhage, or infarction. There is | | partial opacification of ethmoid sinuses bilaterally, suggesting sinusitis. | | | | IMPRESSION: | | 1. Bilateral ethmoid sinusitis, otherwise negative noncontrast head CT. | | | | | + + documented in this encounter Visit Diagnoses + + | Diagnosis | + + | Unspecified psychosis | + + documented in this encounter"
--- OUTSIDE RECORDS SUMMARY | ~2019-11-25 | XMS | Encounter Summary ---
Demographics + + + | Address | [address] | | | [place] [address] | + + + | Home Phone [...] + + | Author | [facility] [employer] [facility] | [...] [place] | | | | | [address] | | + + + + + Care Team Providers + +------+ + | Care Shore Working Supervisor Name | Role | Phone | [...] + + | 11/23/ | Refill | [facility] Primary Care | Fred, | Refill Request | | 2017 | | at [facility] | MD Caio | | | | | [address] | [address] | | | | | Loop Physician's | [address] [facility] | | | | | Pavilion, 3rd floor | [place] [address] | | | | | [place], [place] | [phone] | | | | | [address] | | | | | | [phone] | | | +--------+--------+ + + + [...]
--- OUTSIDE RECORDS SUMMARY | ~2019-11-25 | XMS | Encounter Summary ---
Demographics + + + | Address | [address] | | | [place] [address] | + + + | Home Phone | | + + + | Preferred Language | Unknown | + + + | Marital Status | | + + + | Worship Affiliation | 1013 | + + + | Race | Unknown | + + + | Ethnic Group | Unknown | + + + Author + + + | Author | [facility] | | | and [place] | + + + | Organization | [facility] | | [...] [place] | | | | | [address] | | + + + + + Care Team Providers + +------+ + | Care Lap Grinder Name | Role | Phone | + +------+ + | Jax Cabrera MD | PCP | | + +------+ + Encounter Details +--------+ + + + + | Date | Type | Department | Care Team | Description | +--------+ + + + + | 12/06/ | Hospital | [facility] | Conversion | | | 2019 | Encounter | [facility] | Transaction, | | | | | [address] | Provider Unknown | | | | | [place], [place] | | | | | | [address] | (Fax) | | | | | [phone] | | | +--------+ + + + [...] documented as of this encounter Progress Notes Peter Transaction, Provider Unknown - 12/06/2018 12:21 PM PDTFormatting of this note m ight be different from the original. Progress Notes by RT Ana Luisa at 12/06/181220 Author: RT Ana Luisa Service: (none) Author Type: Technologist Filed: 12/06/181222 Date of Service: 12/06/181220 Status: Signed Heat Transfer Technician: RT Ana Luisa (Technologist) 12/06/18 12:23 Pt attempted to do MRI of C-spine, Unable to tolerate exam due to pain. Pt was escorted to ER for pain control. KR docume nted in this encounter Plan of Treatment +--------+---------+ + + + | Date | Type | Specialty | Care Team | Description | +--------+---------+ + + + | 12/05/ | Office | Pain Medicine | Vitaliy Mendoza, | | | 2019 | Visit | | DO [address] | | | | | | [place] | | | | | | [address] | | | | | | | | +--------+---------+ + + + documented as of this encounter Visit Diagnoses Not on filedocumented in this encounter"
--- OUTSIDE RECORDS SUMMARY | ~2019-11-25 | XMS | Encounter Summary ---
Demographics + + + | Address | [address] | | | [place] [address] | + + + | Home Phone | | + + + | Preferred Language | Unknown | + + + | Marital Status | Unmarried Domestic Partner | + + + | Catholic Affiliation | NON | + + + | Race | White | + + + | Ethnic Group | Not or | + + + Author + + + | Author | [facility] | + + + | Organization | [facility] | + + + | Address | Unknown | + + + | Phone | Unavailable | + + + Support + + + + + | Name | Relationship | Address | Phone | + + + + + | Gabriel Greenberg | ECON | [address] | | | | | [place] | | | | | [address] | | + + + + + Care Team Providers + +------+ + | Care Head Of Data Name | Role | Phone | + [...] + + | 11/17/ | Telephone | [facility] Primary Care | Fred, | Lab Results | | 2017 | | at [facility] | MD Caio | | | | | [address] [place] | [address] | | | | | Loop Physician's | [address] [facility], | | | | | Pavilion, 3rd floor | [place] [address] | | | | | [place], [place] | [phone] | | | | | [address] | | | | | | [phone] | | | +--------+ + + + [...]
--- OUTSIDE RECORDS SUMMARY | ~2019-11-25 | XMS | Encounter Summary ---
Demographics + + + | Address | [address] | | | [place] [address] | + + + | Home Phone | | + + + | Preferred Language | Unknown | + + + | Marital Status | | + + + | Yazidism Affiliation | 1013 | + + + | Race | Unknown | + + + | Ethnic Group | Unknown | + + + Author + + + | Author | [facility] | | | and [place] | + + + | Organization | [facility] | [...] [place] | | | | | [address] | | + + + + + Care Team Providers + +------+ + | Care Molding Sander Name | Role | Phone | + +------+ + | Jax Cabrera MD | PCP | | + +------+ + Reason for Visit + + + | Reason | Comments | + + + | Follow-up | | + + + | Neck Pain | | + + + Evaluate & Treat (Routine) +--------+--------+ + + + + | Status | Reason | Specialty | Diagnoses / | Referred By | Referred To | | | | | Procedures | Contact | Contact | +--------+--------+ + + + + | Closed | | | Diagnoses | Fredo, | Dong, | | | | | Spinal | Gloria C, | MD Skyler | | | | | stenosis, | [employer]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 1949 | [address] | | | | | lumbar | [address] | [address] | | | | | region | [address] | [address] | | | | | without | [place], [place] | [place], [place] | | | | | neurogenic | [address] | [address] | | | | | claudication | Phone: | Phone: | | | | | | [phone] | [phone] | | | | | | Fax: | Fax: | | | | | | [phone] | [phone] | +--------+--------+ + + + + Encounter Details +--------+---------+ + + + | Date | Type | Department | Care Team | Description | +--------+---------+ + + + | 02/07/ | Office | [facility] | Deyvi Kovacs, | Sacroiliac joint | | 2019 | Visit | [facility] | APPOINTMENT COORDINATOR [address] | pain (Primary Dx) | | | | [address] | | | | | [address] | [place] [address] | | | | | [place], [place] | [phone] | | | | | [address] | | | | | | [phone] | | | +--------+---------+ + + + [...] + + + | Blood Pressure | 151/90 | 02/07/2019 1:38 PM | | | | | PDT | | + + + + + | Pulse | 65 | 02/07/2019 1:38 PM | | | | | PDT [...] + + + + | Weight | 74.4 kg (164 lb) | 02/07/2019 1:38 PM | | | | | PDT | | + + + + + | Height | 167.6 cm (5' 6") | 02/07/2019 1:38 PM | | | | | PDT | | + + + + + | Body Mass Index | 26.47 | 02/07/2019 1:38 PM | | | | | PDT | | + + + + + documented in this encounter Progress Notes Deyvi Kovacs ARNP - 02/07/2019 2:25 PM PDT He rates his pain at its worst a 9/10, at its least a 2/10, on average a 3/10 and is curr ently a 4/10. Oswestry Disability Index (RAAD): Total Score 19 (02/07/19 0786) Percentage 42.22 (02/07) Oswestry Neck Disability Index (NDI): Total Score 25 (02/07/19 133) Percentage 50 (02/07) Subjective: Chief Complaint: Back Pain Patient ID: Ivan Giles is a 53 y.o. male HPI Ivan Giles is a 53 y.o. male who presents today with low sacral pain Ivan has a l felton history of back and neck pain. He underwent a cervical epidural on 12/13 from which he c ontinues to report 50 to 60% relief of his neck pain. He underwent a caudal epidural in September 2018 for which he continues to report about 80% relief of his radicular symptoms. In July he underwent bilateral SI steroid injections which were working well, however the patient f ell and his symptoms returned. He is here to discuss treatment options. He denies red flag symptoms. Conservative therapies tried and helped include at least a 6 week trial of NSAIDs and the l idocaine patch. He gets some short-term relief with ibuprofen. Review of Systems Constitutional: Negative for fever. HENT: Negative for trouble swallowing. Eyes: Negative for visual disturbance. Respiratory: Negative for shortness of breath. Cardiovascular: Negative for chest pain. Gastrointestinal: Negative for abdominal pain. Genitourinary: Negative for difficulty urinating. Musculoskeletal: Positive for back pain. Negative for joint swelling. Skin: Negative for rash. Neurological: Negative for dizziness. Hematological: Does not bruise/bleed easily. Psychiatric/Behavioral: Positive for sleep disturbance. All other systems reviewed and are negative. Objective: BP 151/90 | Pulse 65 | Ht 1.676 m (5' 6") | Wt 74.4 kg (164 lb) | BMI 26.47 kg/m Physical Exam Constitutional: He is oriented [...] Bowel sounds are normal. There is no tenderness. Neurological: He is alert and oriented to person, place, and time. No cranial nerve deficit . Skin: Skin is warm and dry. No rash noted. He is not diaphoretic. Psychiatric: He has a normal mood and affect. Cervical: Axial mechanical cervical pain upon exam. Lumbar: Axial mechanical lumbar pain upon exam. Myofascial tightness and tenderness in the musculature surrounding the lumbar spine and SI joints. Aubrey's/Fabere's tests, SI distr action test and pelvic compression tests suggestive of sacroiliitis bilaterally. Motor: 5/5 throughout Assessment and Plan: 1. Sacroiliac joint pain No orders of the defined types were placed in this encounter. No orders of the defined types were placed in this encounter. Ivan Giles is a 53 y.o. male who presents today with low sacral pain Ivan has a l felton history of back and neck pain. He underwent a cervical epidural on 12/13 from which he c ontinues to report 50 to 60% relief of his neck pain. He underwent a caudal epidural in September 2018 for which he continues to report about 80% relief of his radicular symptoms. In July he underwent bilateral SI steroid injections which were working well, however the patient f ell and his symptoms returned. He is here to discuss treatment options. He denies red flag symptoms. The patient has significant bilateral SI joint tenderness to palpation. Maneuvers that str ess these joints increase his symptoms. He is therefore a candidate for bilateral sacroilia c joint steroid injections under fluoroscopy. Plan, alternatives, risks and potential benefits of the procedure were explained to the pat iejeb in great detail. The patient understands that there is no guarantee they will get pain relief with this procedure. They also understand that if they do get pain relief that ther e is no way to know how long it will last. They also understand there is a risk to the proc edure itself which includes but are not limited to infection, abscess, hematoma, nerve damag e, increased pain, and side effects from the medications themselves. The patient wishes to proceed. The patient and I along with his partner discussed that because he does not have any radicu lar symptoms and that his physical exam is suggestive of sacroiliitis these are likely the b est injections at this time. His radicular symptoms could return at any time, however and t hen he may require an epidural steroid injection. Now that we are also treating his neck th is will become increasingly difficult as he can only have so many steroid injections per yea r patient the patient verbalized understanding. The patient was encouraged to use proper jonnathan dy mechanics to avoid increased pain, continue heat/cold therapy, home exercises, and medica tions as prescribed. The patient is in agreement [...] LEIA Martinez has created this entry using [employer] and [employer] macros. The entry has been reviewed and there may still exist sound alike word errors. P DTdocumented in this encounter Plan of Treatment +--------+---------+ + + + | Date | Type | Specialty | Care Team | Description | +--------+---------+ + + + | 12/05/ | Office | Pain Medicine | Vitaliy Mendoza, | | | 2019 | Visit | | DO [address] | | | | | | [place] | | | | | | [id number] | | | | | | | | +--------+---------+ + + + documented as of this encounter Visit Diagnoses + + | Diagnosis | + + | Sacroiliac joint pain - Primary Disorders of sacrum | + + documented in this encounter
--- OUTSIDE RECORDS SUMMARY | ~2019-11-25 | XMS | Encounter Summary ---
Demographics + + + | Address | [address] | | | [place] [address] | + + + | Home Phone | | + + + | Preferred Language | Unknown | + + + | Marital Status | Unmarried Domestic Partner | + + + | Faith Affiliation | NON | + + + | Race | White | + + + | Ethnic Group | Not or | + + + Author + + + | Author | [facility] | + + + | Organization [...] [place] | | | | | [address] | | + + + + + Care Team Providers + +------+ + | Care Healthcare Recruiter Name | Role | Phone | + [...] + + | 08/18/ | Refill | [facility] | Fred, | Refill Request | | 2017 | | at [facility] | MD Caio | (Vitamin D ) | | | | [address] | [address] | | | | | [address] | [address] [facility], | | | | | Pavilion, 3rd floor | [place] [address] | | | | | [place], [place] | [phone] | | | | | [address] | | | | | | [phone] | | | +--------+--------+ + + + [...]
--- OUTSIDE RECORDS SUMMARY | ~2019-11-25 | XMS | Encounter Summary ---
Demographics + + + | Address | [address] | | | [place] [address] | + + + | Home Phone [...] [place] | | | | | [address] | | + + + + + Care Team Providers + +------+ + | Care Cia Agent Name | Role | Phone | + +------+ + | Jax Cabrera MD | PCP | | + +------+ + Encounter Details +--------+ + + + + | Date | Type | Department | Care Team | Description | +--------+ + + + + | 04/10/ | Hospital | [facility] | Conversion | | | 2017 | Encounter | [facility] | Transaction, | | | | | [address] | Provider Unknown | | | | | [place], [place] | [phone] | | | | | [address] | | | | | | [phone] | Ashish Staley | | | | | | MD [address] | | | | | | [place] | | | | | | [address], | | | | | | [place] [address] | | | | | | [phone] | | | | | | | [...] + + + | Blood Pressure | - | - | | + [...] kg (162 lb) | 08/24/2016 2:44 PM | | | | | PDT | | + + + + + | Height | 167.6 cm (5' 6") | 08/24/2016 2:44 PM | | | | | PDT | | + + + + + | Body Mass Index | 26.15 | 08/24/2016 2:44 PM | | | [...] | 0 | 12/16/20 | | | (DEPAKOTE) [address] [...] [place] | | | | | | [id number] | | | | | | | | +--------+---------+ + + + documented as of this encounter Visit Diagnoses Not on filedocumented in this encounter
--- OUTSIDE RECORDS SUMMARY | ~2019-11-25 | XMS | Encounter Summary ---
Demographics + + + | Address | [address] | | | [place] [address] | + + + | Home Phone | | + + + | Preferred Language | Unknown | + + + | Marital Status | | + + + | Jainism Affiliation | 1013 | + + + | Race | Unknown | + + + | Ethnic Group | Unknown | + + + Author + + + | Author | [facility] | | | and [place] | + + + | Organization | [facility] | | [...] [place] | | | | | [address] | | + + + + + Care Team Providers + +------+ + | Care Gluer And Slicer Hand Name | Role | Phone | + +------+ + | Jax Cabrera MD | PCP | | + +------+ + Reason for Visit + +--------+ + | Reason | Onset | Comments | | | Date | | + +--------+ + | Follow-up | 04/05/ | | | | 2018 | | + +--------+ + Encounter Details +--------+ + + + + | Date | Type | Department | Care Team | Description | +--------+ + + + + | 04/05/ | Telephone | [facility] | Skyler Dong, | Follow-up | | 2019 | | [facility] | [address] | | | | | [address] | | | | | [address] | [place] [address] | | | | | [place], [place] | [phone] | | | | | [address] | | | | | | [phone] | | | +--------+ + + + [...] encounter Miscellaneous Notes Telephone Encounter - Thelma Subramanian Stucco Laborer - 04/05/2019 11:24 AM PSTPatient called to let us know he is getting about 95% relief from his last injections with Dr Baldwi n- Bilat SI documented in this encounter Plan of Treatment [...] [place] | | | | | | [address] | | | | | | | | +--------+---------+ + + + documented as of this encounter Visit Diagnoses Not on filedocumented in this encounter"
--- OUTSIDE RECORDS SUMMARY | ~2019-11-25 | XMS | Encounter Summary ---
Demographics + + + | Address | [address] | | | [place] [address] | + + + | Home Phone | | + + + | Preferred Language | Unknown | + + + | Marital Status | | + + + | Advent Affiliation | [id number] | + + + | Race | Unknown | + + + | Ethnic Group | Unknown | + + + Author + + + | Author | [facility] | | | and [place] | + + + | Organization | [facility] | | | [...] [place] | | | | | [phone] | | + + + + + Care Team Providers + +------+ + | Care Parts Coordinator Name | Role | Phone | + +------+ + PCP | Unavailable | + +------+ + Encounter Details +--------+ + + + + | Date | Type | Department | Care Team | Description | +--------+ + + + + | 05/19/ | [facility] | [facility] | Audrey Leigh | | | 2011 | Encounter | [facility] EM[facility]Y | MD [place] [address] | | | | | CENTER [address] | [facility], | | | | | [place] | [place] [address] | | | | | [address] | [phone] | | | | | [phone] | | | +--------+ + + + [...] documented as of this encounter ED Notes Audrey Leigh MD - 05/19/2011 10:02 AM PSTDATE: 05/19/2011 PRIMARY CARE PHYSICIAN: Woody Martinez MD in [place]. CHIEF COMPLAINT: Epigastric pain. HISTORY OF PRESENT ILLNESS: This is a 45-year-old male who comes ambulatory to the emerg[facility]. The patient indicates he has had 3 days of epigastric and left upper quadran t pain. It is worse w ith deep breathing. It is worse with any kind of movement. It has bee n associated with "lots" of vomi ting. He has a history of kidney stones. He indicates this does not feel anything like previous bouts of stone. He was previously seen here on 05/08 for a complaint of vomiting. He has had long-standing HIV/AIDS first diagnosed in 1982. He indicates his CD4 count has been in the 500s, although he runs chronically a low white bloo d cell count. He has a previous history of a cholecystectomy and hepatiti s C. He indicates that he has been in discussion with Dr. Martinez about whether or not to start hepa titis C treatment. However, he missed his followup appointment. He denies any diarrhea associated wit h this. When he was seen here previously, he was given Zofran and Phenergan. These were not very effe ctive to control his vomiting over the last 3 days. He has felt dizzy, weak and nearly fainted. PAST MEDICAL HISTORY: He has had a previous cholecystectomy, HIV/AIDS. hepatitis C, kidney stones, ir ritable bowel syndrome, hypertension. MEDICATIONS 1. Rayataz. 2. Depakote. 3. Truvada. 4. Whitetop. He does not know when his last dose of that would have been. 5. Lyrica. 6. Norvir. 7. Serevent. 8. Topamax. ALLERGIES: NONE. REVIEW OF SYSTEMS He denies any shortness of breath. Denies any cough. There has been no measured fever. He i s able to tolerate a small amount of liquids. Indicates that he has had episodes of this ep igastric pain in the past, but nothing to this degree. He came in complaining of pain 10/10 in severity. SOCIAL HISTORY: As above. He indicates he does not use alcohol, and he denied substance abu se to the nursing staff and has never smoked. PHYSICAL EXAMINATION VITAL SIGNS: Temperature 97.9, respirations 20, heart rate 84, blood pressure 140/100. O2 s aturation 100% room air. 66 kg. GENERAL: A well-developed, well-nourished male who looks like he is really uncomfortable. SKIN: Warm, moist. He is not frankly jaundiced. HEAD: Normocephalic, atraumatic. HEART: Regular rate and rhythm; no murmur. LUNGS: Clear to auscultation throughout bilaterally. ABDOMEN: Active bowel sounds, soft. He initially appeared to have diffuse tenderness and co ncern for rebound tenderness. On re-examination after some morphine, he was completely nont gabi to palpation d eep bilateral lower quadrants, absolutely no rebound tenderness, but h e was tender in the epigastric area and left upper quadrant. There is no palpable organomeg max. No justin ascites or hernia. EXTREMITIES: Warm, well perfused. NEUROLOGIC: The patient is awake, alert. He does tend to appear a little bit overly anxious about his symptoms and discomfort. No focal deficits. ED COURSE: We established IV access. He was given a liter of normal saline IV, Zofran and m orphine, t itrated to pain. He had good control of nausea here, but pain was ongoing. LABORATORY: Lab work was checked including a CBC, comprehensive panel, amylase and lipase a s well as a urine dip. His lab work returned with mildly elevated transaminases. His AST is 113, ALT 243. Remai lexa LFTs are normal. Amylase, lipase are normal. Electrolytes are nor mal. Total white count is sligh tly low at 3.7. Normal hemoglobin and platelet count. He did not have sustained symptom control. Acute abdominal series did not show any evidence of perfor ation with free air or air-fluid levels. Urinalysis showed fairly concentrated specimen, specific gravity 1.025. No evidence of infe ction. Giv en his ongoing symptoms, we obtained IV and p.o. contrast CT of the abdomen. He was also treated here with Protonix and Zantac, and Phenergan for recurring nausea, which w as more effective than Zofran. CT results were received from the radiologist in a preliminary report indicating no evidenc e of overt disease in the abdomen. He has small diverticula but no diverticulitis, and I th ink this is reassuri ng. I talked to the patient about his symptoms. It does not sound like he has had a lot of NSAID use. I think he would benefit from endoscopy. I talked to Dr. Nirav lopez from GI and Dr. Corley will be contacting him for early outpatient followup wi endoscopy, and he should see Dr. Martinez in ord er to get this performed. Will go ahead and start him on Prilosec along with Percocet for pain contro l, and at this point I think the patient can safely proceed with his workup as an outpatient. He feel s comfortable wit h that plan. We discussed potential etiologies of his discomfort such as gastritis, esophag itis and peptic ulcer disease. He is encouraged to use easy to digest foods only. He questio ne d whether or not he should go back on Ensure which he used previously for weight gain, b ut does not s eem to be barreto in this setting and is more likely to induce diarrhea. He will be discharged in the care of his caregiver. IMPRESSION EPIGASTRIC PAIN. DICTATED BY: Audrey Leigh MD Emergency Medicine JOB #: [id number] EXT JOB #:[id number] <Electronicall y Signed by Audrey Leigh MD> 06/15/11 0458 documented in this encounter Plan of Treatment [...] PAZ | | | | | | [id number] | | | | | | | | +--------+---------+ + + + documented as of this encounter Procedures + +--------+ + + + | Procedure Name | Priori | Date/Time | Associated Diagnosis | Comments | | | ty | | | | + +--------+ + + + | CBC WITH | Routin | 05/19/2011 | | Results for this | | DIFFERENTIAL | e | 10:50 AM | | procedure are in the | | | | PST | | results section. | + +--------+ + + + | LIPASE | Routin | 05/19/2011 | | Results for this | | | e | 10:50 AM | | procedure are in the | | | | PST | | results section. | + +--------+ + + + | AMYLASE | Routin | 05/19/2011 | | Results for this | | | e | 10:50 AM | | procedure are in the | | | | PST | | results section. | + +--------+ + + + | COMPREHENSIVE | Routin | 05/19/2011 | | Results for this | | METABOLIC PANEL | e | 10:50 AM | | procedure are in the | | | | PST | | results section. | + +--------+ + + + | XR ABDOMEN AP | | 05/19/2011 | | Results for this | | UPRIGHT KUB AND PA | | 10:02 AM | | procedure are in the | | CHEST | | PST | | results section. | + +--------+ + + + | CT ABDOMEN PELVIS W | | 05/19/2011 | | Results for this | | CONTRAST | | 10:02 AM | | procedure are in the | | | | PST | | results section. | + +--------+ + + + documented in this encounter Results Comprehensive Metabolic Panel (05/19/2011 10:50 AM PST) + + + + + + | Component | Value | Ref Range | Performed | Pathologist | | | | | At | Signature | + + + + + + | Glucose | 100 | 70 - 109 mg/dL | [facility] | | | | | | [facility] | | | | | | [facility] | | | | | | C[facility] - | | | | | | LABORATORY | | + + + + + + | Calcium | 9.9 | 8.3 - 10.5 | [facility] | | | | | mg/dL | [facility] | | | | | | MEDICAL | | | | | | CENTER - | | | | | | LABORATORY | | + + + + + + | Alkaline | 95 | 40 - 110 IU/L | [facility] | | | Phosphatase | | | [facility] | | | | | | MEDICAL | | | | | | CENTER - | | | | | | LABORATORY | | + + + + + + | AST | 113 (H) | 10 - 42 IU/L | [facility] | | | | | | [facility] | | | | | | [facility] | | | | | | C[facility] - | | | | | | LABORATORY | | + + + + + + | ALT | 243 (H) | 6 - 45 IU/L | [facility] | | | | | | [facility] | | | | | | [facility] | | | | | | C[facility] - | | | | | | LABORATORY | | + + + + + + | Bilirubin | 1.1 (H) | 0.2 - 1.0 mg/dL | [facility] | | | Total | | | [facility] | | | | | | [facility]ICAL | | | | | | CENTER - | | | | | | LABORATORY | | + + + + + + | Total | 8.0 (H) | 6.0 - 7.8 gm/dL | [facility] | | | Protein | | | [facility] | | | | | | [facility]ICAL | | | | | | CENTER - | | | | | | LABORATORY | | + + + + + + | Albumin | 4.5 | 3.2 - 5.0 gm/dL | [facility] | | | | | | [facility] | | | | | | [facility] | | | | | | [facility] - | | | | | | LABORATORY | | + + + + + + | BUN | 12 | 7 - 18 mg/dL | [facility] | | | | | | [facility] | | | | | | [facility] | | | | | | [facility] - | | | | | | LABORATORY | | + + + + + + | Creatinine | 0.79 | 0.60 - 1.30 | [facility] | | | | | mg/dL | [facility] | | | | | | [facility] | | | | | | CENTER - | | | | | | LABORATORY | | + + + + + + | Estimated | >60Comment: For | >60 mL/min/A | [facility] | | | GFR | -Americans, | | [facility] | | | | please multiply [...] + + + + | BUN/Creatin | 15.2 | 12 - 20 | [facility] | | | ine Ratio | | | [facility] | | | | | | MEDICAL | | | | | | CENTER - | | | | | | LABORATORY | | + + + + + + | Na | 135 (L) | 136 - 149 mEq/L | [facility] | | | | | | [facility] | | | | | | [facility] | | | | | | [facility] - | | | | | | LABORATORY | | + + + + + + | K | 3.9 | 3.5 - 5.1 mEq/l | [facility] | | | | | | [facility] | | | | | | [facility] | | | | | | C[facility] - | | | | | | LABORATORY | | + + + + + + | Cl | 100 | 98 - 109 mEq/l | [facility] | | | | | | [facility] | | [...] + + + | Anion Gap | 10.9 | 6.0 - 17.0 | [facility] | | | | | [...] | + + + + + | [facility] | [address] | [place] | [phone] | | [facility] | | [address] | | | - LABORATORY | | | | + + + + + | [facility] | [address] | [place], [place] | | | [facility] | | [address], [facility] | | | - LABORATORY | | | | + + + + + Lipase (05/19/2011 10:50 AM PST) + +-------+ + + + | Component | Value | Ref Range | Performed | Pathologist | | | | | At | Signature | + +-------+ + + + | Lipase | 32 | 0 - 60 U/L | [facility] | | | | | | [facility] | | | | | [facility] | | | | | | C[facility] - | | | | | | LABORATORY | | + +-------+ + + + + + | Specimen | + + | | + + + + + + + | Performing | Address | City/State/Zipcode | Phone Number | | Organization | | | | + + + + + | [facility] | [address] | [place], [place] | [phone] | | [facility] | | [address] | | | - LABORATORY | | | | + + + + + | [facility] | [address] | [place], [place] | | | [facility] | | [address], [facility] | | | - LABORATORY | | | | + + + + + Amylase (05/19/2011 10:50 AM PST) + +-------+ + + + | Component | Value | Ref Range | Performed | Pathologist | | | | | At | Signature | + +-------+ + + + | Amylase | 53 | 27 - 100 U/L | [facility] | | | | | | [facility] | | | | | | [facility]ICAL | | | | | | CENTER - | | | | | | LABORATORY | | + +-------+ + + + + + | Specimen | + + | | + + + + + + + | Performing | Address | City/State/Zipcode | Phone Number | | Organization | | | | + + + + + | [facility] | [address] | [place] | [phone] | | [facility] | | [address] | | | - LABORATORY | | | | + + + + + | [facility] | [address] | [place], [place] | | | [facility] | | [address], [facility] | | | - LABORATORY | | | | + + + + + CBC with Differential (05/19/2011 10:50 AM PST) + + + + + + | Component | Value | Ref Range | Performed | Pathologist | | | | | At | Signature | + + + + + + | White Blood | 3.7 (L) | 4.0 - 11.0 K/uL | [facility] | | | Cells | | | [facility] | | | | | | MEDICAL | | | | | | CENTER - | | | | | | LABORATORY | | + + + + + + | Red Blood | 5.43 | 4.30 - 5.70 | [facility] | | | Cells | | M/uL | [facility] | | | | | | MEDICAL | | | | | | CENTER - | | | | | | LABORATORY | | + + + + + + | Hemoglobin | 16.7 | 13.5 - 18.0 | [facility] | | | | | gm/dL | [facility] | | | | | | MEDICAL | | | | | | CENTER - | | | | | | LABORATORY | | + + + + + + | Hematocrit | 49.2 | 40.0 - 51.0 % | [facility] | | | | | | [facility] | | | | | | [facility] | | | | | | CENTER - | | | | | | LABORATORY | | + + + + + + | MCV | 90.6 | 83.0 - 101.0 fL | [facility] | | | | | | [facility] | | | | | | MEDICAL | | | | | | CENTER - | | | | | | LABORATORY | | + + + + + + | MCH | 30.7 | 28.0 - 35.0 pg | [facility] | | | | | | [facility] | | | | | | MEDICAL | | | | | | CENTER - | | | | | | LABORATORY | | + + + + + + | MCHC | 33.9 | 32.0 - 36.0 | [facility] | | | | | g/dL | [facility] | | | | | | MEDICAL | | | | | | CENTER - | | | | | | LABORATORY | | + + + + + + | RDW-CV | 13.3 | <15.0 % | [facility] | | | | | | [facility] | | | | | | MEDICAL | | | | | | CENTER - | | | | | | LABORATORY | | + + + + + + | Platelet | 170 | 140 - 440 K/uL | [facility] | | | Count | | | [facility] | | | | | | MEDICAL | | | | | | CENTER - | | | | | | LABORATORY | | + + + + + + | % | 40.7 (L) | 45 - 75 % | [facility] | | | Neutrophils | | | [facility] | | | | | | MEDICAL | | | | | | CENTER - | | | | | | LABORATORY | | + + + + + + | % | 43.9 | 20 - 45 % | [facility] | | | Lymphocytes | | | [facility] | | | | | | MEDICAL | | | | | | CENTER - | | | | | | LABORATORY | | + + + + + + | % Monocytes | 14.2 (H) | 4 - 12 % | [facility] | | | | | | [facility] | | | | | | MEDICAL | | | | | | CENTER - | | | | | | LABORATORY | | + + + + + + | % | 0.7 | 0 - 5 % | [facility] | | | Eosinophils | | | [facility] | | | | | | [facility] | | | | | | CENTER - | | | | | | LABORATORY | | + + + + + + | % Basophils | 0.5 | 0 - 1 % | [facility] | | | | | | [facility] | | | | | | MEDICAL | | | | | | CENTER - | | | | | | LABORATORY | | + + + + + + | Absolute | 1.5 | 1.5 - 6.6 K/uL | [facility] | | | Neutrophils | | | [facility] | | | | | | MEDICAL | | | | | | CENTER - | | | | | | LABORATORY | | + + + + + + | Absolute | 1.6 | 0.6 - 3.2 K/uL | [facility] [...] | Absolute | 0.0 | 0.0 - 0.4 K/uL | [facility] | | | Eosinophils | | | [facility] | | | | | | MEDICAL | | | | | | CENTER - | | | | | | LABORATORY | | + + + + + + | Absolute | 0.0 | 0.0 - 0.1 K/uL | [facility] | | | Basophils | | | [facility] | | [...] | + + + + + | [facility] | [address] | [place], [place] | [phone] | | [facility] | | [address] | | | - LABORATORY | | | | + + + + + | [facility] | [address] | [place], [place] | | | [facility] | | [id number] | | | - LABORATORY | | | | + + + + + CT Abdomen Pelvis w Contrast (05/19/2011 10:02 AM PST) + + | Specimen | + + | | + + + + + | Narrative | Performed At | + + + | [facility] Diagnostic Imaging Department | [facility] | | [address] [facility] | [facility] | | CT ABDOMEN AND PELVIS WITH | DIAG IMG | | CONTRAST: 05/19/2011 CLINICAL HISTORY: ABDOMINAL PAIN. | | | COMPARISON: None. TECHNIQUE: Imaging is performed from the | | | lung bases through the pubic symphysis with oral contrast and | | | following the uneventful intravenous administration of 80 mL of | | | Isovue 370. FINDINGS: LOWER LUNGS: Linear opacities | | | are likely scarring or atelectasis. No consolidative processes. | | | No pleural effusion. No pericardial thickening. | | | ABDOMEN/PELVIS: Mild prominence of the intra and extrahepatic | | | biliary ducts. This is likely related to the patient being status | | | post cholecystectomy. The liver is otherwise unremarkable. The | | | spleen is just at the upper limits of normal measuring about 13.0 cm | | | longitudinally. The kidneys are symmetrically enhancing. There | | | is no obstructive uropathy. There is a 2 mm nephrolith in the left | | | kidney. The pancreas is unremarkable. There is no evidence | | | for gastrointestinal tract obstruction. On the acquired images the | | | duodenum and proximal jejunum are contrasted and air distended. | | | However, there is no transition point and contrast has transited the | | | small bowel into the colon and this appearance is likely peristalsis | | | related. There is a small diverticulum off the descending portion | | | of the duodenum, without surrounding inflammation. There are a | | | few scattered colonic diverticula. There is no evidence for | | | diverticulitis. The appendix is visible and is normal. There is | | | no free fluid. There is no free air. The bladder is | | | unremarkable. There are multiple retroperitoneal lymph nodes. None | | | are greater than 7 mm in size. The osseous structures are | | | unremarkable. IMPRESSION: NO CT EVIDENCE OF AN ACUTE | | | INTRA-ABDOMINAL OR PELVIC PROCESS. Dictated Date/Time: | | | 05/19/2011 16:01 Transcribed Date/Time: 05/19/2011 16:33 | | | Chainstitch Zipper Setter: <Electronically Signed by Ayan Hernández, | | | MD> 05/19/112042 | | + + + + + | Procedure Note | + + | [place] Conversion - 06/23/2013 4:30 PM [facility] | | Diagnostic Imaging Department | | [address] [facility] | | | | | | | | CT ABDOMEN AND PELVIS WITH CONTRAST: 05/19/2011 | | | | CLINICAL HISTORY: ABDOMINAL PAIN. | | | | COMPARISON: None. | | | | TECHNIQUE: Imaging is performed from the lung bases through the pubic | | symphysis with oral contrast and following the uneventful intravenous | | administration of 80 mL of Isovue 370. | | | | FINDINGS: | | | | LOWER LUNGS: Linear opacities are likely scarring or atelectasis. No | | consolidative processes. No pleural effusion. No pericardial thickening. | | | | ABDOMEN/PELVIS: Mild prominence of the intra and extrahepatic biliary ducts. | | This is likely related to the patient being status post cholecystectomy. The | | liver is otherwise unremarkable. The spleen is just at the upper limits of | | normal measuring about 13.0 cm longitudinally. The kidneys are symmetrically | | enhancing. There is no obstructive uropathy. There is a 2 mm nephrolith in | | the left kidney. The pancreas is unremarkable. | | | | There is no evidence for gastrointestinal tract obstruction. On the acquired | | images the duodenum and proximal jejunum are contrasted and air distended. | | However, there is no transition point and contrast has transited the small | | bowel into the colon and this appearance is likely peristalsis related. There | | is a small diverticulum off the descending portion of the duodenum, without | | surrounding inflammation. There are a few scattered colonic diverticula. | | There is no evidence for diverticulitis. The appendix is visible and is | | normal. There is no free fluid. There is no free air. The bladder is | | unremarkable. There are multiple retroperitoneal lymph nodes. None are | | greater than 7 mm in size. The osseous structures are unremarkable. | | | | IMPRESSION: NO CT EVIDENCE OF AN ACUTE INTRA-ABDOMINAL OR PELVIC PROCESS. | | | | Dictated Date/Time: 05/19/2011 16:01 | | Transcribed Date/Time: 05/19/2011 16:33 | | Chainstitch Zipper Setter: JR | | <Electronically Signed by Ayan Hernández MD> 05/19/113 | + + + +---------+ + + | Performing | Address | City/State/Zipcode | Phone Number | | Organization | | | | + +---------+ + + | [place] [facility] | | | | | [facility] | | | | + +---------+ + + XR Abd Supine and Upright w 1 Vw Chest (05/19/2011 10:02 AM PST) + + | Specimen | + + | | + + + + + | Narrative | Performed At | + + + | [facility] Diagnostic Imaging Department | [facility] | | [address] [facility] | [facility] | | THREE VIEWS CHEST AND ABDOMEN: | DIAG IMG | | 05/19/2011 CLINICAL HISTORY: ABDOMINAL PAIN. COMPARISON: | | | Chest radiograph 05/08/2011. CHEST FINDINGS: The cardiac | | | silhouette remains borderline to mildly enlarged. The mediastinum and | | | pu lmonary vasculature are unremarkable. The lungs appear clear, | | | allowing for lordotic positioning. No p neumothorax or pleural | | | effusion is visible. There is S-shaped thoracic curvature. | | | ABDOMEN FINDINGS: Gas is scattered throughout nondilated colon and | | | rectum. Borderline dilated, gas-f illed segments of small bowel are | | | visible in the left mid abdomen. No free air, pneumatosis or convin | | | cing bowel wall thickening is seen. Surgical clips project at the | | | level of the gallbladder fossa. Tin y calcific density projecting | | | over the left pelvic cavity is nonspecific. Organ shadows and osseous | | | s tructures are otherwise unremarkable. IMPRESSION: 1. | | | NONSPECIFIC BOWEL GAS PATTERN, WITH BORDERLINE DILATED, GAS-FILLED | | | SEGMENTS OF SMALL BOWEL IN THE LEFT ABDOMEN. CONSIDER INTERVAL | | | RADIOGRAPHIC FOLLOWUP VERSUS CT FOR FURTHER CHARACTERIZATION. 2. | | | TINY CALCIFIC DENSITY PROJECTING OVER THE LEFT PELVIC CAVITY, | | | POSSIBLY REFLECTING A PHLEBOLITH, A LTHOUGH A DISTAL URETERAL | | | CALCULUS IS NOT EXCLUDED. 3. BORDERLINE TO MILD ENLARGEMENT OF | | | THE CARDIAC SILHOUETTE WITHOUT OVER EVIDENCE OF ACTIVE DISEASE IN | | | THE CHEST. Dictated Date/Time: 05/19/2011 12:00 Transcribed | | | Date/Time: 05/19/2011 12:07 Chainstitch Zipper Setter: | | | <Electronically Signed by Krystian Salazar MD> 05/19/11 2135 | | + + + + + | Procedure Note | + + | Eric, Rad Conversion - 06/23/2013 4:29 PM [facility] | | Diagnostic Imaging Department [address] [place] [address] | | THREE VIEWS CHEST AND ABDOMEN: 05/19/2011 CLINICAL | | HISTORY: ABDOMINAL PAIN. COMPARISON: Chest radiograph 05/08/2011. CHEST FINDINGS: | | The cardiac silhouette remains borderline to mildly enlarged. The mediastinum and | | pulmonary vasculature are unremarkable. The lungs appear clear, allowing for lordotic | | positioning. No pneumothorax or pleural effusion is visible. There is S-shaped thoracic | | curvature. ABDOMEN FINDINGS: Gas is scattered throughout nondilated colon and rectum. | | Borderline dilated, gas-filled segments of small bowel are visible in the left mid | | abdomen. No free air, pneumatosis or convincing bowel wall thickening is seen. Surgical | | clips project at the level of the gallbladder fossa. Tiny calcific density projecting | | over the left pelvic cavity is nonspecific. Organ shadows and osseous structures are | | otherwise unremarkable. IMPRESSION: 1. NONSPECIFIC BOWEL GAS PATTERN, WITH BORDERLINE | | DILATED, GAS-FILLED SEGMENTS OF SMALL BOWEL IN THE LEFT ABDOMEN. CONSIDER INTERVAL | | RADIOGRAPHIC FOLLOWUP VERSUS CT FOR FURTHER CHARACTERIZATION. 2. TINY CALCIFIC DENSITY | | PROJECTING OVER THE LEFT PELVIC CAVITY, POSSIBLY REFLECTING A PHLEBOLITH, ALTHOUGH A | | DISTAL URETERAL CALCULUS IS NOT EXCLUDED. 3. BORDERLINE TO MILD ENLARGEMENT OF THE | | CARDIAC SILHOUETTE WITHOUT OVER EVIDENCE OF ACTIVE DISEASE IN THE CHEST. Dictated | | Date/Time: 05/19/2011 12:00Transcribed Date/Time: 05/19/2011 12:07Transcriptionist: | | <Electronically Signed by Krystian Salazar MD> 05/19/112134 | |tructures are otherwise unremarkable. | | | |IMPRESSION: | |1. NONSPECIFIC BOWEL GAS PATTERN, WITH BORDERLINE DILATED, GAS-FILLED SEGMENTS OF SMALL SUDHA WEL IN THE | | LEFT ABDOMEN. CONSIDER INTERVAL RADIOGRAPHIC FOLLOWUP VERSUS CT FOR FURTHER CHARACTERIZATI ON. | | | |2. TINY CALCIFIC DENSITY PROJECTING OVER THE LEFT PELVIC CAVITY, POSSIBLY REFLECTING A PHL EBOLITH, A | |LTHOUGH A DISTAL URETERAL CALCULUS IS NOT EXCLUDED. | | | |3. BORDERLINE TO MILD ENLARGEMENT OF THE CARDIAC SILHOUETTE WITHOUT OVER EVIDENCE OF ACTIV E DISEASE | |IN THE CHEST. | | | |Dictated Date/Time: 05/19/2011 12:00 | |Transcribed Date/Time: 05/19/2011 12:07 | |Chainstitch Zipper Setter: | |<Electronically Signed by Krystian Salazar MD> 05/19/112134 | + + + +---------+ + + | Performing | Address | City/State/Zipcode | Phone Number | | Organization | | | | + +---------+ + + | [place] | | | | | [facility] | | | | + +---------+ + + documented in this encounter Visit Diagnoses Not on filedocumented in this encounter
--- OUTSIDE RECORDS SUMMARY | ~2019-11-25 | XMS | Encounter Summary ---
Demographics + + + | Address | [address] | | | [place] [address] | + + + | Home Phone | | + + + | Preferred Language | Unknown | + + + | Marital Status | Unmarried Domestic Partner | + + + | Alevism Affiliation | NON | + + + | Race | White | + + + | Ethnic Group | Not or | + + + Author + + + | Author | [facility] | + + + | Organization | [...] [place] | | | | | [address] | | + + + + + Care Team Providers + +------+ + | Care Compressor Mechanic Name | Role | Phone | [...] | | | | | [place], | | | | | | [place] [address] | | | +--------+ + + + [...]
--- OUTSIDE RECORDS SUMMARY | ~2019-11-25 | XMS | Encounter Summary ---
Demographics + + + | Address | [address] | | | [place] [address] | + + + | Home Phone [...] Author + + + | Author | [facility] | + + + | Organization [...] [place] | | | | | [address] | | + + + + + Care Team Providers + +------+ + | Care Crm Specialist Name | Role | Phone | + +------+ + | Jax Cabrera MD | PCP | | + +------+ + Reason for Visit +--------+ + | Reason | Comments | +--------+ + | HIV | seizures. | +--------+ + Encounter Details +--------+---------+ + + + | Date | Type | Department | Care Team | Description | +--------+---------+ + + + | 06/17/ | Office | [facility] Primary Care | Ibarra, | HIV (human | | 2017 | Visit | at [facility] | MD Caio | immunodeficiency | | | | [address] | [address] | virus infection) | | | | [address] | [address] [place], | (HCC) (Primary Dx); | | | | Pavilion, 3rd floor | [place] [address] | Hepatitis B virus | | | | [place], [place] | [phone] | infection, | | | | [address] | | unspecified | | | | [phone] | | chronicity; | | | | | | Diarrhea, | | | | | | unspecified type; | | | | | | Other type of | | | | | | migraine; Mild | | | | | | intermittent asthma | | | | | | without | | | | | | complication; | | | | | | Convulsions, | | | | | | unspecified | | | | | | convulsion type | | | | | | (HCC); VSD | | | | | | (ventricular septal | | | | | | defect); Other | | | | | | chronic pain; | | | | | | Essential | | | | | | hypertension; | | | | | | Fatigue, unspecified | | | | | | type | +--------+---------+ + + + Social History [...] + + + | Blood Pressure | 157/103 | 06/17/2016 1:26 PM | | | | | PST | | + + + + + | Pulse | 77 | 06/17/2016 1:26 PM | | | | | PST | | + + + + + | Temperature | 36.4 C (97.5 F) | 06/17/2016 1:26 PM | | | [...] + + + + | Weight | 72.6 kg (160 lb 1.6 | 06/17/2016 1:26 PM | | | | oz) | PST | | + + + + + | Height | 167.6 cm (5' 6") | 06/17/2016 1:26 PM | | | | | PST | | + + + + + | Body Mass Index | 25.84 | 06/17/2016 1:26 PM | | | | | PST | | + + + + + documented in this encounter Patient Instructions Patient Instructions Caio Ibarra MD - 06/17/2016 1:40 PM PSTHi Bradley Fagan seeing you today We will work on getting your a provider closer to your home ([place]) Please increase your amlodipine to 10 mg daily Start Debrox solution to soften your ear wax Get labs done today. documented in this encounter Progress Notes Caio Ibarra MD - 06/17/2016 1:40 PM PST Internal Medicine Clinic/HIV Clinic Patient Active Problem List Diagnosis HIV (human immunodeficiency virus infection) (HCC) Hepatitis B Seizure (HCC) Bipolar affective disorder (HCC) Essential hypertension Back pain Convulsions (HCC) Chronic Diarrhea Hepatitis C No outpatient prescriptions have been marked as taking for the 06/17/16 encounter (Office Vis it) with Caio Ibarra MD. Chief Complaint Patient presents with HIV seizures. [place] is a 50 year male with a complicated medical history who is here to follow up on his HIV care. His active issues include: HIV Was last seen on Prezcobix and TDF/FTC. He stopped this medication since the last visit be cause of nausea and ongoing side-effects Depression/Bipoalr Bipolar disease - has been unable to yet find a provider in the [place] area that he is c omfortable with seeing Hepatitis C - he is status post treatment and most recent HCV shows an SVR. 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 He was tod not need follow up after this. Chronic Pain - Care Everywhere notes from 04/17 indicate that pain was seen by [facility]. Per chart there was some threatening behavior by the Ivan who demanded med ication for his pain and threatened to use heroin again. Hypertension : He remains on Telmisartan and amlodipine VSD : was seen by cardiology, no signs of overload, and asymptomatic. Chronic Hepatitis B: remains on TDF/FTC with last PCR negative. He continues to seek case management services with [facility] ( [facility] ) . He lives with his partner Gabriel Greenberg Today, he complains of chronic diarrhea. - for which he takes intermittent lomotil. Per pat ient has had an extensive workup by GI including O+ P and colonoscopy He also complains of feeling very tired all the time. Feels he is getting adequate sleep. Physical Examination: BP 157/103 | Pulse 77 | Temp 36.4 C (97.5 F) | Ht 1.676 m (5' 6") | Wt 72.6 kg (160 lb 1.6 oz) | BMI 25.84 kg/(m^2) General: Anxious male. Skin: No rash or petechiae. Lymph nodes: No significant cervical, supraclavicular or axillary adenopathy appreciated. HEENT: Oropharynx: no oral hairy leukoplakia, thrush or exudates. Mucous membranes are mo ist. Neck: Supple. Lungs: Clear to auscultation bilaterally with normal respiratory effort. Cardiac: + early systolic murmer. no gallop auscultated. Abdomen: Soft, nontender. No hepatosplenomegaly or masses palpated. Extremities: No clubbing or edema. Labs: Lab Results Component Value Date [id number] 382 02/07/2016 [id number] 28.3 (L) 02/07/2016 HIVPCR [id number] (A) 02/07/2016 Lab Results Component Value Date RPR Non Reactive 02/07/2016 No results found for: CHOL, LDL, HDL, TRI Lab Results Component Value Date [id number] 25.9 02/07/2016 Impression and Plan 1. HIV (human immunodeficiency virus infection) (HCC) - Uncontrolled. -I advised that is is important to restating his HIV Medications. High risk of poor outcome s. He will Need to take 100% of the prescribed antiretroviral doses to avoid developing res istance and to obtain maximum benefit from medications. It seems there were some side-effect s with Prezcobix and TDF/FTC and so he is now off. Given his co-infection with HBV, he will need to remains on a tenofovir based regimen. His GART doesn't show any resistance previousl y, including integrase. Most likely was WT (wild-type) Therefore, he will get new restaging today. Discontinue with TDF/FTC and Prezcobix. Start d olutegravir (TIVICAY) 50 mg oral tablet;Take 1 tablet by mouth once daily. Dispense: 30 tab let; - emtricitabine-tenofovir alafenamide 200-25 mg oral tablet; Take 1 tablet by mouth once da arvin. 2. Hepatitis B virus infection, unspecified chronicity - Stable + Hepatitis S antigen, but negative PCR 3. Diarrhea, unspecified type - worsening -remains on chronic lomotil. There seems to be no clear answer to his diarrhea per patient after infectious work up and colonoscopy. He will consider treatment HIV diarrhea with micrographics services supervisor felemer 125 mg oral tablet,delayed release (DR/EC); Take 1 tablet by mouth every twelve hour s. Dispense: 60 tablet; Refill: 2 4. Other type of migraine - Imitrex as needed. 5. Mild intermittent asthma without complication - stable - albuterol (PROAIR HFA) 90 mcg/actuation inhalation HFA aerosol inhaler; Inhale 1-2 puffs by mouth every six hours as needed. Contact provider if using >1 inhaler/month. (Pharmacy: [facility] whichever albuterol is on formulary) Dispense: 1 Inhaler; Refill: 2 6. 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 - imaging of the brain has been negative. If so, then the best course of therapy would be cognitive behavior therapy and mental healt h. -He shouldn't drive - Safety discussed at home. 7. VSD (ventricular septal defect) - murmer noted. Asymptomatic. - Echo in 2016, shows small ventricular septal defect and shunt appears to only be left to right, directed in the right ventricular apex and into the right ventricular outflow tract. - To follow for now per cardiology. 8. Other chronic pain - Still no clear reason for his pain. Given his previous history of opioid abuse, dicussed that he should continue to have this discussion with his PCP and consider pain management. 9. Essential hypertension -far from goals as evidenced by this BP today and previously - discussed that he should increase his amlodipine to 10 mg, continue with the Telmisartan 10. Fatigue, unspecified type - This may be multifactorial. Including his untreated HIV, depression - To check TSH, testosterone, LH/FSH with labs today. 11. Mental Health - he is in urgent need for mental health services to address his depression /bipolar diseas es - To discuss with his CM about finding some service closer to his home. HM Colonoscopy - 2003 normal Influenza -2015 PCV 2012 Tdap 2013 PPV 2010. I asked patient during visit to return to clinic in 4 weeks for routine follow up, sooner i f acute issue arises. I spent 60 minutes [id number] with the patient of which greater than 50% was spent counse ling the patient regarding the above issues. Caio Ibarra MD Ashish Tran MA - 06/17/2016 1:40 PM PST Patient is here today to address Chief Complaint Patient presents with Pain Management seizures. Vitals BP 157/103 | Pulse 77 | Temp 36.4 C (97.5 F) | Ht 1.676 m (5' 6") | Wt 72.6 kg (160 lb 1.6 oz) | BMI 25.84 kg/(m^2) Patient reports a pain level of 08 - Very Severe today. History Smoking Status Never Smoker Smokeless Tobacco Not on file No Known Allergies Medications reconciled with patient? No. Health Maintenance Health Maintenance Due Topic Date Due CHOLESTEROL SCREENING 02/07/2016 Shared Decision Making: Not completed at this visit SBIRT: Not due documented in this e ncounter Plan of Treatment Not on filedocumented as of this encounter Results LIPID SET (TRIG, T CHOL, HDL, CALC [...] + + + | [facility] | [address] | [place] [address] | | | SERVICES, ARELIS | [address] | | | + [...] - | | | | | | [facility] | | + +-------+ + + + + + | Specimen | + + | Blood - Blood | | (substance) | + + + + + + + | Performing | Address | City/State/Zipcode | Phone Number | | Organization | | | | + + + + + | [facility] | [address] | [place] [address] | | | [place] | | | [...] | + + + + + | [facility] - | [address] | [place] [address] | | | [place] | | | [...] | | | this test in the [facility] | | | | | | Laboratory Test | | | | | | Directory | | | | | | (Barcoding.Yunzhisheng).Performed | | | | | | by [employer],[address] | | | | | | [address], [facility],[place] | | | | | | [address] | | | | | | [phone].[employer]. | | | | | | com, Ben Araiza MD, | | | | [...] [facility] | [address] | [place], [place] | | | UNIV PTH - INTFC | | [address] | | + + + + + [...] + | [facility] | [address] | [place] [address] | | | SERVICES, CORE | PARK [...] | + + + + + | [facility] | [address] [facility] | [place] [address] | | | SERVICES, CORE | PARK [...] by | | | | | | [employer],[address] | | | | | | [address], [facility],[place] | | | | | | [address] | | | | | | [phone].[facility]. | | | | | | Ben [...] + + | [facility] | [address] | [place], [place] | | | UNIV PTH - INTFC | | [address] | | + + + + + [...] + + + + | [facility] | [address] | [place] [address] | | | DIAGNOSTIC | [address] [...] | | | LABORATORY | | | [place] | | | SERVICES, | | | [...] + | [facility] | [address] | [place] [address] | | | SERVICES, CORE | [address] [...] LABORATORY | | performance characteristics determined by [employer]. It has | SERVICES, | | not [...] | + + + + + | [facility] | [address] | [place] [address] | | | SERVICES, SPECIAL | [address] | | | | IMM + COAG | | | | + + + + + documented in this encounter Visit Diagnoses + + | Diagnosis | + + | HIV (human immunodeficiency virus infection) (HCC) - Primary Asymptomatic human | | immunodeficiency virus (HIV) infection status | + + | Hepatitis B virus infection, unspecified chronicity | + + | Diarrhea, unspecified type | + + | Other type of migraine | + + | Mild intermittent asthma without complication Unspecified asthma | + + | Convulsions, unspecified convulsion type (HCC) | + + | VSD (ventricular septal defect) Ventricular septal defect | + + | Other chronic pain | + + | Essential hypertension | + + | Fatigue, unspecified type | + + documented in this encounter
--- OUTSIDE RECORDS SUMMARY | ~2019-11-25 | XMS | Encounter Summary ---
Demographics + + + | Address | [address] | | | [place] [address] | + + + | Home Phone [...] + + | Author | [facility] | + + + | Organization | [facility] | + + + | Address | Unknown | + + + | Phone | Unavailable | + + + Support + + + + + | Name | Relationship | Address | Phone | + + + + + | Gabriel Greenberg | ECON | [address] | | | | | [place] | | | | | [address] | | + + + + + Care Team Providers + +------+ + | Care Senior Ios Developer Name | Role | Phone | [...] Request | | 2016 | | at [facility] | MD Caio | | | | | [address] | [address] | | | | | Loop Phys[address]'s | [place], | | | | | [place], 3rd floor | [place] [address] | | | | | [place], [place] | [phone] | | | | | [address] | | | | | | [phone] | | | +--------+--------+ + + + [...]
--- OUTSIDE RECORDS SUMMARY | ~2019-11-25 | XMS | Encounter Summary ---
Demographics + + + | Address | [address] | | | [place] [address] | + + + | Home Phone | | + + + | Preferred Language | Unknown | + + + | Marital Status | Unmarried Domestic Partner | + + + | Jewish Affiliation | NON | + + + | Race | White | + + + | Ethnic Group | Not or | + + + Author + + + | Author | [facility] | + + + | [...] [place] | | | | | [address] | | + + + + + Care Team Providers + +------+ + | Care Brewer Helper Name | Role | Phone | [...] | | Pavilion, 3rd floor | | ([facility]) | | | | [place], [place] | | | | | | [address] | | | | | | [phone] | | | +--------+------+ + + + [...] | + + + + + | [facility] | [address] | [place] [address] | | | SERVICES, CORE | [address] [...] [facility] | | | LAB NAME | [facility] | | REFERENCE | | | | [address] | | LAB | | | | [place] [address] | | | | + + + [...] | + + + + + | [facility] | [address] | [place] [address] | | | SERVICES, CORE | [address] [...] + + + + | [facility] | [address] | [place] [address] | | | DIAGNOSTIC | [address] [...] + + | [facility] | [address] | [place] [address] | | | DIAGNOSTIC | [address] [...] | | | LABORATORY | | | [place] | | | SERVICES, | | | [...] [facility] | [address] | [place] [address] | | | SERVICES, CORE | PARK [...] LABORATORY | | performance characteristics determined by [employer]. It has | SERVICES, | | not [...] | + + + + + | [facility] | [address] | [place] [address] | | | SERVICES, SPECIAL | PARK [...]
--- OUTSIDE RECORDS SUMMARY | ~2019-11-25 | XMS | Encounter Summary ---
Demographics + + + | Address | [address] | | | [place] [address] | + + + | Home Phone | | + + + | Preferred Language | Unknown | + + + | Marital Status | Unmarried Domestic Partner | + + + | Holiness Affiliation | NON | + + + | Race | White | + + + | Ethnic Group | Not or | + + + Author + + + | Author | [facility] | + + + | Organization | [facility] | + + + | Address | Unknown | + + + | Phone | Unavailable | + + + Support + + + + + | Name | Relationship | Address | Phone | + + + + + | Gabriel Greenberg | ECON | [address] | | | | | [place] | | | | | [address] | | + + + + + Care Team Providers + +------+ + | Care Core Manager Name | Role | Phone | [...] + + | 11/27/ | Telephone | [facility] Primary Care | Fred, | Dizziness; | | 2017 | | at [facility] | MD Caio | Nauseated; Increased | | | | [address] | [address] | frequency of | | | | Loop Physician's | [place], | urination; HBP - | | | | Pavilion, 3rd floor | [place] [address] | High blood pressure | | | | [place], [place] | [phone] | | | | | [address] | | | | | | [phone] | | | +--------+ + + + [...]
--- OUTSIDE RECORDS SUMMARY | ~2019-11-25 | XMS | Encounter Summary ---
Demographics + + + | Address | [address] | | | [place] [address] | + + + | Home Phone [...] Author + + + | Author | [facility] | + + + | Organization [...] [place] | | | | | [address] | | + + + + + Care Team Providers + +------+ + | Care Window Installer Name | Role | Phone | [...] floor | | | | | | [place], [place] | | | | | | [address] | | | | | | [phone] | | | +--------+------+ + + + [...] | | | | PDT | virus ([facility]) | results section. | + +--------+ + + + | COMPLETE METABOLIC | Routin | 08/17/2016 | Human | Results for this | | SET | e | 4:14 PM | immunodeficiency | procedure are in the | | (NA,K,CL,CO2,BUN,CRE | | PDT | virus ([facility]) | results section. | | AT,GLUC,CA,AST,ALT,B | [...] [facility] | [address] | [place] [address] | | | SERVICES, CORE | PARK [...] [facility] | [address] | [place] [address] | | | SERVICES, CORE | PARK [...] | | | LABORATORY | | | [place] | | | SERVICES, | | | [...] | + + + + + | [facility] | [address] | [place] [address] | | | SERVICES, CORE | PARK [...] LABORATORY | | performance characteristics determined by [employer]. It has | SERVICES, | | not [...] | + + + + + | [facility] | [address] | [place] [address] | | | SERVICES, SPECIAL | [address] [...] + + | Performing | Address | City/State/[facility] | Phone Number | | Organization | | | | + + + + + | [facility] | [address] | [place] [address] | | | DIAGNOSTIC | [address] | | | | LABORATORIES | | | | + + + + + documented in this encounter Visit Diagnoses + + | Diagnosis | + + | Human immunodeficiency virus (HCC) Asymptomatic human immunodeficiency virus (HIV) | | infection status | + + documented in this encounter"
--- OUTSIDE RECORDS SUMMARY | ~2019-11-25 | XMS | Encounter Summary ---
Demographics + + + | Address | [address] | | | [place] [address] | + + + | Home Phone | | + + + | Preferred Language | Unknown | + + + | Marital Status | | + + + | Voodoo Affiliation | 1013 | + + + | Race | Unknown | + + + | Ethnic Group | Unknown | + + + Author + + + | Author | [facility] | | | and [place] | + + + | Organization | [facility] | | | and [...] [place] | | | | | [address] | | + + + + + Care Team Providers + +------+ + | Care Coo & Co Founder Name | Role | Phone | + +------+ + | Jax Cabrera MD | PCP | | + +------+ + Reason for Visit + +--------+ + | Reason | Onset | Comments | | | Date | | + +--------+ + | Pre-Procedure | 03/17/ | | | | 2018 | | + +--------+ + Encounter Details +--------+ + + + + | Date | Type | Department | Care Team | Description | +--------+ + + + + | 03/17/ | Telephone | [facility] | Skyler Dong, | Pre-Procedure | | 2019 | | [facility] | [address] | | | | | [address] | | | | | [address] | [place] [address] | | | | | [place], [place] | [phone] | | | | | [address] | | | | | | [phone] | | | +--------+ + + + [...] Miscellaneous Notes Telephone Encounter - Shannan Escobedo, Dry Wall Plasterer - 03/17/2019 1:30 PM PDTCalled go give patient arrival time mobile number non working number listed same as home number. Elio barbour second number listed as home, Left message with Ed request patient to call back.Jose etienne signed by Shannan Escobedo, Dry Wall Plasterer at 03/17/2019 1:37 PM PDTdocumented in t his encounter Plan of Treatment +--------+---------+ + + + | Date | Type | Specialty | Care Team | Description | +--------+---------+ + + + | 12/05/ | Office | Pain Medicine | Vitaliy Mendoza, | | | 2019 | Visit | | DO [address] | | | | | | [place] | | | | | | [address] | | | | | | | | +--------+---------+ + + + documented as of this encounter Visit Diagnoses Not on filedocumented in this encounter"
--- OUTSIDE RECORDS SUMMARY | ~2019-11-25 | XMS | Encounter Summary ---
Demographics + + + | Address | [address] | | | [place] [address] | + + + | Home Phone [...] [place] | | | | | [address] | | + + + + + Care Team Providers + +------+ + | Care Dopster Name | Role | Phone | + +------+ + PCP | Unavailable | + +------+ + Encounter Details +--------+ + + + + | Date | Type | Department | Care Team | Description | +--------+ + + + + | 05/21/ | Emergency | [facility] | Conversion | | | 1997 | | [facility] | Transaction, | | | | | [facility]Y [facility]ENTER | Provider Unknown | | | | | [address] | [phone] | | | | | [place] | | | | | | [address] | | | | | | [phone] | | | +--------+ + + + [...] [place] | | | | | | [address] | | | | | | | | +--------+---------+ + + + documented as of this encounter Visit Diagnoses Not on filedocumented in this encounter"
--- OUTSIDE RECORDS SUMMARY | ~2019-11-25 | XMS | Encounter Summary ---
Demographics + + + | Address | [address] | | | [place] [address] | + + + | Home Phone | | + + + | Preferred Language | Unknown | + + + | Marital Status | | + + + | Scientologist Affiliation | 1013 | + + + | Race | Unknown | + + + | Ethnic Group | Unknown | + + + Author + + + | Author | [facility] | | | and [place] | + + + | Organization | [facility] | | | [...] [place] | | | | | [address] | | + + + + + Care Team Providers + +------+ + | Care Assembly Manager Name | Role | Phone | + +------+ + PCP | Unavailable | + +------+ + Encounter Details +--------+ + + + + | Date | Type | Department | Care Team | Description | +--------+ + + + + | 05/05/ | Emergency | [facility] | Conversion | Vomiting alone | | 1996 - | | [facility] | Transaction, | | | | | [facility] | Provider Unknown | | | 05/06/ | | [address] | | | | 1995 | | [place], [place] | | | | | | [address] | | | | | | [phone] | | | +--------+ + + + [...] [place] | | | | | | [address] | | | | | | | | +--------+---------+ + + + documented as of this encounter Visit Diagnoses + + | Diagnosis | + + | Vomiting alone | + + documented in this encounter"
--- OUTSIDE RECORDS SUMMARY | ~2019-11-25 | XMS | Encounter Summary ---
Demographics + + + | Address | [address] | | | [place] [address] | + + + | Home Phone | | + + + | Preferred Language | Unknown | + + + | Marital Status | | + + + | Pentecostalism Affiliation | 1013 | + + + | Race | Unknown | + + + | Ethnic Group | Unknown | + + + Author + + + | Author | [facility] | | | and [place] | + + + | Organization | [facility] | | [...] [place] | | | | | [address] | | + + + + + Care Team Providers + +------+ + | Care Operations Inspector Name | Role | Phone | + +------+ + | Jax Cabrera MD | PCP | | + +------+ + Reason for Visit + +--------+ + | Reason | Onset | Comments | | | Date | | + +--------+ + | Back Pain | 02/09/ | | | | 2018 | | + +--------+ + Encounter Details +--------+ + + + + | Date | Type | Department | Care Team | Description | +--------+ + + + + | 02/09/ | Telephone | [facility] | Skyler Dong, | Back Pain | | 2019 | | INTERVENTIONAL PAIN | MD [address] | | | | | [address] | [address] | | | | | [address], | [place] [address] | | | | | [place] [address] | [phone] | | | | | [phone] | | | +--------+ + + + [...] Miscellaneous Notes Telephone Encounter - Thelma Subramanian Shell Grader - 02/09/2019 9:58 AM PDTNoted. E lectronically signed by Thelma Subramanian Shell Grader at 02/09/2019 9:58 AM PDTRuby Conklin I - 02/09/2019 9:44 AM Barb, is calling regarding Back Pain and would like a call back. Additional Call Details: Patient states he is in severe pain from his lower back traveling to his legs. Patient stated he is going to the hospital and wants to make aware. If this is a symptom based call, was patient offered triage? Not Applicable If this is a symptom based call and you were unable to immediately transfer the call to a mila mcgill skid worker was caller made aware that if at [...] [place] | | | | | | [id number] | | | | | | | | +--------+---------+ + + + documented as of this encounter Visit Diagnoses Not on filedocumented in this encounter"
--- OUTSIDE RECORDS SUMMARY | ~2019-11-25 | XMS | Encounter Summary ---
Demographics + + + | Address | [address] | | | [place] [address] | + + + | Home Phone [...] + + | Author | [facility] | + + + [...] [place] | | | | | [address] | | + + + + + Care Team Providers + +------+ + | Care Talent Consultant Name | Role | Phone | [...] + + | 03/16/ | Telephone | [facility] Primary Care | Fred, | N&V - Nausea and | | 2015 | | at [facility] | MD Caio | vomiting | | | | [address] | [address] | | | | | Loop Physician's | [address] [facility], | | | | | Pavilion, 3rd floor | [place] [address] | | | | | [place], [place] | [phone] | | | | | [address] | | | | | | [phone] | | | +--------+ + + + [...]
--- OUTSIDE RECORDS SUMMARY | ~2019-11-25 | XMS | Encounter Summary ---
Demographics + + + | Address | [address] | | | [place] [address] | + + + | Home Phone [...] Author + + + | Author | [facility] | + + + | [...] [place] | | | | | [address] | | + + + + + Care Team Providers + +------+ + | Care Peat Shredder Tender Name | Role | Phone | [...] + + | 03/08/ | Hospital | [facility] [address] | Clemente Quan, | | | 2016 | Encounter | [address] | [address] | | | | | [facility] | [address] | | | | | [place] | [place], [place] | | | | | (MNP/[facility]) | [address] | | | | | [place], [place] | [phone] | | | | | [address] | | | | | | [phone] | | | +--------+ + + + [...] on weekends and holidays call the Hospital Water Plant Pump Operator Supervisor toll free [phone] Ext. [phone] or and have the GI doctor career and transition teacher paged. The provider who performed your procedure is: Dr. Quan Results of your colonoscopy: Normal exam from what we could see, prep was not ideal. Will need two day prep, please schedule next colonoscopy electively within next 1-3 years. Recommended follow up Colonoscopy: 1-3 years Follow up Appointments with: Referring provider as needed. Thank you for choosing [facility]! Your primary care provider or referring provider [...] | | | | | | | ([facility]) | | | | | | + [...] rom the original. PRE PROCEDURE NOTE: MR# [id number] Subjective: Ivan Giles is a 51 y.o. [...] | MRN: | [facility] | | [id number] Date: 03/08/2017Patient Name: Ivan Nicole #: | ENDOS COPY | | [id number] of : 1965CSN: [id number] Type: | | | AmbulatoryRoom: GI 2Procedure: ColonoscopyIndications: | | | Screening for colorectal malignant neoplasmProviders: | | | CLEMENTE QUAN MD (Doctor), GWENDOLYN KHALIL RN | | | (Nurse), NED ALEX, Marketing Executive | | | (Marketing Executive)Referring MD: COLETTE LONGORIAequesting | | | Provider: [...] the procedure. | | | The Olympus [id number] Colonoscope #[id number] was | | | introduced through the [...] | | | Initiated On: 03/08/2017 8:10 [facility] Letter to: JAX CABRERA MD | [...]
--- OUTSIDE RECORDS SUMMARY | ~2019-11-25 | XMS | Encounter Summary ---
Demographics + + + | Address | [address] | | | [place] [address] | + + + | Home Phone | | + + + | Preferred Language | Unknown | + + + | Marital Status | | + + + | Zoroastrianism Affiliation | 1013 | + + + | Race | Unknown | + + + | Ethnic Group | Unknown | + + + Author + + + | Author | [facility] | | | and [place] | + + + | Organization | [facility] | | | [...] [place] | | | | | [address] | | + + + + + Care Team Providers + +------+ + | Care Machine Tool Technician Instructor Name | Role | Phone | + +------+ + | Jax Cabrera MD | PCP | | + +------+ + Reason for Visit + +--------+ + | Reason | Onset | Comments | | | Date | | + +--------+ + | Procedure | 07/26/ | | | | 2020 | | + +--------+ + Encounter Details +--------+ + + + + | Date | Type | Department | Care Team | Description | +--------+ + + + + | 07/26/ | Telephone | [facility] | Skyler Dong, | Procedure | | 2020 | | [facility] | [address] | | | | | [address]Y [address] | | | | | [address] | [place] [address] | | | | | [place], [place] | [phone] | | | | | [address] | | | | | | [phone] | | | +--------+ + + + [...] Miscellaneous Notes Telephone Encounter - Shannan Escobedo Metrologist - 07/27/2019 8:57 AM PDTUnable to contact patient to give arrival time invalid number documented in this encounter Plan of Treatment [...] [place] | | | | | | [id number] | | | | | | | | +--------+---------+ + + + documented as of this encounter Visit Diagnoses Not on filedocumented in this encounter"
--- OUTSIDE RECORDS SUMMARY | ~2019-11-25 | XMS | Encounter Summary ---
Demographics + + + | Address | [address] | | | [place] [address] | + + + | Home Phone | | + + + | Preferred Language | Unknown | + + + | Marital Status | Unmarried Domestic Partner | + + + | Worship Affiliation | NON | + + + | Race | White | + + + | Ethnic Group | Not or | + + + Author + + + | Author | [facility] | + + + | Organization | [address] | | | | | [place] | | | | | [address] | | + + + + + Care Team Providers + +------+ + | Care Dog Licenser Name | Role | Phone | + [...] ogy | Colon | [place], | [address] | | | | | cancer | [address] | [place] | | | | | screening | [address] | [place] | | | | | Procedures | [address] | [place], 4th | | | | | CONSULT TO | [place], [place] | floor | | | | | GI PROCEDURE | [address] | [place], [place] | | | | | UNIT: | Phone: | [phone] | | | | | COLONOSCOPY | [phone] | Phone: | | | | | [place] | Fax: | [phone] | | | | | COLONOSCOPY, | [phone] | Fax: | | | | | FLEX, | | [phone] | | | | | W/BIOPSY | [...] + + | 10/20/ | Telephone | [facility] Primary Care | Fred | Referral To | | 2017 | | at [facility] | MD Caio | Gastroenterology | | | | [address] | [address] | | | | | Loop Physician's | [address] [facility], | | | | | [place], 3rd floor | [place] [address] | | | | | [place], [place] | [phone] | | | | | [address] | | | | | | [phone] | | | +--------+ + + + [...]
--- OUTSIDE RECORDS SUMMARY | ~2019-11-25 | XMS | Encounter Summary ---
Demographics + + + | Address | [address] | | | [place] [address] | + + + | Home Phone | | + + + | Preferred Language | Unknown | + + + | Marital Status | Unmarried Domestic Partner | + + + | Restorationist Affiliation | NON | + + + | Race | White | + + + | Ethnic Group | Not or | + + + Author + + + | Author | [facility] | + + + | Organization | [facility] | + + + | Address | Unknown | + + + | Phone | Unavailable | + + + Support + + + + + | Name | Relationship | Address | Phone | + + + + + | Gabriel Greenberg | ECON | [address] | | | | | [place] | | | | | [address] | | + + + + + Care Team Providers + +------+ + | Care Manager Work Name | Role | Phone | + [...] Loop | | | | | | [place], | | | | | | 4th floor [place], | | | | | | [place] [address] | | | | | | [phone] | | | +--------+ + + + [...]
--- OUTSIDE RECORDS SUMMARY | ~2019-11-25 | XMS | Encounter Summary ---
Demographics + + + | Address | [address] | | | [place] [address] | + + + | Home Phone [...] [address] [facility] | + + + | Organization | [facility] | + + + | Address | Unknown | + + + | Phone | Unavailable | + + + Support + + + + + | Name | Relationship | Address | Phone | + + + + + | Gabriel Greenberg | ECON | [address] | | | | | [place] | | | | | [address] | | + + + + + Care Team Providers + +------+ + | Care Industrial Organizational Psychologist Name | Role | Phone | [...] + + | 06/17/ | Office | [facility] Primary Care | Ibarra, | HIV (human | | 2017 | Visit | at [facility] | MD Caio | immunodeficiency | | | | [address] | [address] | virus infection) | | | | Loop Physician's | [address] [place], | (HCC) (Primary Dx); | | | | Pavilion, 3rd floor | [place] [address] | Hepatitis B virus | | | | [place], [place] | [phone] | infection, | | | | [address] | | unspecified | | | | [phone] | | chronicity; | | | | [...] your a provider closer to your home ([place]) Please increase your amlodipine to 10 mg [...] Chief Complaint Patient presents with HIV seizures. Lowlel is a 50 year male with a complicated medical history who is here to follow up on his HIV care. His active issues include: HIV Was last seen on Prezcobix and TDF/FTC. He stopped this medication since the last visit be cause of nausea and ongoing side-effects Depression/Bipoalr Bipolar disease - has been unable to yet find a provider in the [place] area that he is c omfortable with seeing Hepatitis C - he is status post treatment and most recent HCV shows an SVR. 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 He was tod not need follow up after this. Chronic Pain - Care Everywhere notes from 04/17 indicate that pain was seen by a family [facility] provider. Per chart there was some threatening [...] seek case management services with [facility] ( [facility] ) [phone]. He lives with his partner Gabriel Greenberg [...] edema. Labs: Lab Results Component Value Date [id number] 382 02/07/2016 IH9HSURZRG 28.3 (L) 02/07/2016 HIVPCR 09435 (A) 02/07/2016 Lab Results Component Value Date RPR Non Reactive 02/07/2016 No results found for: CHOL, LDL, HDL, TRI Lab Results Component Value Date QCDF22CGPPLP 25.9 02/07/2016 Impression and Plan 1. HIV [...] He will consider treatment HIV diarrhea with cross country truck driver felemer 125 mg oral tablet,delayed release (DR/EC); [...] acute issue arises. I spent 60 minutes xxap-en-ofdd with the patient of which greater than [...] | + + + + + | [facility] [place] | [address] | [place] [address] | | | SERVICES, ARELIS | FRANKY [...] - | | | | | | [facility] | | + +-------+ + + + + + | Specimen | + + | Blood - Blood | | (substance) | + + + + + + + | Performing | Address | City/State/Zipcode | Phone Number | | Organization | | | | + + + + + | [facility] - | [address] | [place] [address] | | | [place] | | | [...] | + + + + + | [facility] - | [address] | [place] [address] | | | [place] | | | [...] | | | this test in the [facility] | | | | | | Laboratory Test | | | | | | Directory | | | | | | ([employer]).Performed | | | | | | by [employer],[address] | | | | | | [address], [facility],[place] | | | | | | [address] | | | | | | [phone].[employer]. | | | | | | com, [...] [facility] | [address] | [place], [place] | | | UNIV PTH - INTFC | | [address] | | + + + + + [...] [facility] | [address] | [place] [address] | | | SERVICES, CORE | PARK [...] | + + + + + | [facility] | [address] | [place] [address] | | | SERVICES, CORE | PARK [...] by | | | | | | [employer],[address] | | | | | | [address], [facility],[place] | | | | | | [address] | | | | | | [phone].[facility]. | | | | | | Ben [...] + | [facility] | [address] | [place], [place] | | | UNIV PTH - INTFC | | [address] | | + + + + + [...] + + + + | [facility] | [address] | [place] [address] | | | DIAGNOSTIC | [address] [...] | | | LABORATORY | | | MACAN[place] | | | SERVICES, | | | [...] [facility] | [address] | [place] [address] | | | SERVICES, CORE | FRANKY [...] LABORATORY | | performance characteristics determined by [employer]. It has | SERVICES, | | not [...] | + + + + + | [facility] | [address] | [place] [address] | | | SERVICES, SPECIAL | PARK [...]
--- OUTSIDE RECORDS SUMMARY | ~2019-11-25 | XMS | Encounter Summary ---
Demographics + + + | Address | [address] | | | [place] [address] | + + + | Home Phone | | + + + | Preferred Language | Unknown | + + + | Marital Status | Unmarried Domestic Partner | + + + | Mosque Affiliation | NON | + + + | Race | White | + + + | Ethnic Group | Not or | + + + Author + + + | Author | [facility] | + + + | Organization | [...] [place] | | | | | [address] | | + + + + + Care Team Providers + +------+ + | Care Roulette Dealer Name | Role | Phone | + [...] discomfort; | | 2015 | | at [facility] | MD Caio | Vomiting | | | | [address] | [address] | | | | | Loop Physician's | [address] [facility], | | | | | Pavilion, 3rd floor | [place] [address] | | | | | [place], [place] | [phone] | | | | | [address] | | | | | | [phone] | | | +--------+ + + + [...]
--- OUTSIDE RECORDS SUMMARY | ~2019-11-25 | XMS | Encounter Summary ---
Demographics + + + | Address | [address] | | | [place] [address] | + + + | Home Phone [...] [place] | | | | | [address] | | + + + + + Care Team Providers + +------+ + | Care Core Inserter Name | Role | Phone | + +------+ + | Jax Cabrera MD | PCP | | + +------+ + Encounter Details +--------+ + + + + | Date | Type | Department | Care Team | Description | +--------+ + + + + | 06/29/ | Hospital | [facility] | Manolo, David | Seizures ([facility]); | | 2019 - | Encounter | [facility] | Zachary Hannah MD [address] | Chest pain, | | | | CLINICAL DECISION | [address] | unspecified type; | | 07/02/ | | [address] | [place] [address] | Fall, initial | | 2019 | | [place], [place] | [phone] | encounter; Strain of | | | | [address] | | lumbar region, | | | | [phone] | | initial encounter; | | | | | | HIV (human | | | | | | immunodeficiency | | | | | | virus infection) | | | | | | ([facility]); Lumbosacral | | | | | | pain; Lumbar | | | | | | radicular syndrome | +--------+ + + + + Social [...] + + + | Blood Pressure | 139/73 | 07/02/2018 4:11 PM | | | | | PST | | + + + + + | Pulse | 82 | 07/02/2018 4:11 PM | | | | | PST | | + + + + + | Temperature | 36.8 C (98.2 F) | 07/02/2018 4:11 PM | | | | | PST | | + + + + + | Respiratory Rate | 16 | 07/02/2018 4:11 PM | | | | | PST | | + + + + + | Oxygen Saturation | - | - | | + + + + + | Inhaled Oxygen | - | - | | | Concentration | | | | + + + + + | Weight | 70.2 kg (154 lb 12.2 | 07/02/2018 4:11 PM | | | | oz) | PST | | + + + + + | Height | 167.6 cm (5' 6") | 07/02/2018 4:11 PM | | | | | PST | | + + + + + | Body Mass Index | 24.98 | 07/02/2018 4:11 PM | | | | | PST | | + + + + + documented in this encounter Discharge Summaries Radha Villarreal MD - 07/02/2018 4:05 PM PST Discharge Summaries by Radha Villarreal MD at 07/02/18 4191 Author: Radha Villarreal MD Service: Hospitalist Author Type: Physician Filed: 07/02/18 5023 Date of Service: 07/02/18 6353 Status: Signed Global Marketing Manager: Radha Villarreal MD (Physician) [facility] Service: Hospitalist Discharge Summary Date of Admission: 06/29/2018 Date of Discharge: 07/02/2018 Discharge Provider: RADHA VILLARREAL MD Treatment Team: Consulting Physician: Scott Goss MD Consulting Physician: Jacob Bose MD Admitting Provider: Iesha French MD Discharge Diagnoses: Principal Problem: Precordial pain Active Problems: Back pain, lumbosacral Human immunodeficiency virus (HIV) disease Essential hypertension, benign Seizures IBS (irritable bowel syndrome) DDD (degenerative disc disease), lumbar Gait instability 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 male with history of HIV, treated hepatitis C and B follow ed by Dr. Calvo as an outpatient, history of lumbar degenerative disc disease, seizure/pseudo seizure but has not taken his Depakote for 5 years until a few days prior to this admission when he established care with a new primary care physician who had an accidental fall at [facility] and presented with acute low back pain. Also reports of of multiple seizures every week. H e denied any saddle paresthesia, no bladder or bowel incontinence. While in the emergency ro om, the patient also complained of left-sided chest pain. Subsequently, he was admitted for further workup. Telemetry has been unremarkable. Serial troponins were negative. Cardiac str ess test showed no evidence of ischemia or infarct with normal LV wall motion. LV ejection f raction 60 percent at rest and 56 percent stress. CAT scan of the lumbar spine showed no acu te fracture with mild lumbar spondylosis and 2 mm nonobstructive bilateral renal stones. Fur thermore, MRI of the lumbar spine showed small left foraminal annular fissure and disc protr usion L4-L5 contacting the left L4 nerve root. Possible impingement of the left L4 nerve kristopher t. Posterior central annular fissure and disc protrusion at L5-S1. Annular fissure can cause discogenic pain. This was reviewed with neurosurgeon case monitor, Dr. Salas who recommended p ain control at this time. No surgical intervention indicated. Patient was also evaluated by neurology, Dr. Goss who recommended 6 hour EEG. This c christine back unremarkable but advised to continue with his depakote. I also advised the patient to follow up with his PCP for a referral to a neurologist. Unfortunately, the [facility] is no longer accepting his insurance. It was emphasized to him the importance of having close neurology follow up. For his chest pain, telemetry was unremarkable. Serial troponins were normal and card iac stress test was negative for ischemia. For his back pain, he was able to work with PT/OT and both recommended prior setting. Outpatient PT referral was done. For his acute kidney injury, he was given hydration with improvement of his creatinine . Lisinopril/HCTZ were restarted on discharge. He had episodes of respiratory distress. CXR and ABG were unremarkable. He remained at room air with saturations >90%. He had also episodes of stridor. CT neck showed mild muc osal edema of the nasopharynx and adenoids with mild narrowing of the nasopharyngeal and lester pharyngeal airways. Vocal cords appear closed. Trachea and larynx appear patent. An ENT co nsult was done. Dr. Bose saw him and performed a laryngoscopy. No evidence of upper airw ay/laryngeal obstruction or narrowing. No stridor on exam. 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 An outpatient biopsy was recommended. ENT address and contact number were provided. On the day of discharge, patient received magnesium replacement. He remained stable and improved. The rest of his hospital stay was unremarkable. Facility-Administered Medications Prior to Admission Medication Dose Route Frequency Provider Last Rate Last Dose [DISCONTINUED] sodium chloride 0.9 % flush 10 mL 10 mL Intravenous PRN Skyler dodd MD 10 mL at 01/25/14 1027 [DISCONTINUED] sodium chloride 0.9 % flush 10 mL 10 mL Intravenous PRN Skyler dodd MD Prescriptions Prior to Admission Medication Sig Dispense Refill Last Dose dexlansoprazole (DEXILANT) 60 MG capsule Take 60 mg by mouth every morning before break fast. 06/28/2018 at Unknown time DIPHENOXYLATE-ATROPINE PO Take 1 tablet by mouth 4 (four) times daily. PRN divalproex (DEPAKOTE) 250 MG 24 hr tablet Take 500 mg by mouth 2 (two) times daily. dolutegravir sodium (TIVICAY) 50 MG tablet Take 100 mg by mouth daily. 06/28/2018 at U nknown time emtricitabine-tenofovir DF (TRUVADA) 200-300 MG per tablet Take 1 tablet by mouth daily . 06/28/2018 fluticasone furoate-vilanterol (BREO ELLIPTA) 100-25 mcg/inh inhaler Inhale 1 puff into the lungs daily. 06/28/2018 hydrOXYzine (ATARAX) 25 MG tablet Take 25 mg by mouth 3 (three) times daily as needed f or Itching. PRN loperamide (ANTI-DIARRHEAL) 2 MG capsule Take 2 mg by mouth 4 (four) times daily as nee ded. Past Week at Unknown time loratadine (CLARITIN) 10 MG tablet Take 10 mg by mouth daily as needed. prn at Unknow n time pregabalin (LYRICA) 150 MG capsule Take 150 mg by mouth 2 (two) times daily. 019 at Unknown time sumatriptan (IMITREX) 100 MG tablet Take 100 mg by mouth as needed for Migraine. May re peat dose in 2 hours if no relief. Do not exceed 2 doses in 24 hours. PRN telmisartan-hydrochlorothiazide (MICARDIS HCT) 80-12.5 MG per tablet Take 1 tablet by m outh daily. 06/28/2018 trazodone (DESYREL) 100 MG tablet Take 100 mg by mouth nightly. 3 weeks ago at Unkn own time DISCHARGE EXAM Vital Signs: Vitals: 07/02/18 1042 07/02/18 1053 07/02/18 1521 07/02/18 1604 BP: 142/70 139/73 BP Location: Right upper arm Right upper arm Pulse: 86 89 80 78 Resp: 16 Temp: 98.3 F (36.8 C) 98.2 F (36.8 C) TempSrc: Oral Oral SpO2: 98% 98% 98% 98% Weight: Height: Physical Exam General appearance: alert, appears stated age and cooperative. Frail and fatigued-looking b ut very interactive. No distress. HEENT full sentences. Head: Normocephalic, without obvious abnormality, atraumatic Neck: no adenopathy, no carotid bruit, no JVD, supple, symmetrical, trachea midline and thy roid not enlarged, symmetric, no tenderness/mass/nodules Lungs: Low pitched expiratory rhonchi to auscultation bilaterally but more prominent on the upper airways Heart: regular rate and rhythm, S1, S2 normal, 2/6 systolic murmur, click, rub or gallop Abdomen: soft, non-tender; bowel sounds normal; no masses, no organomegaly Musculoskeletal: There is no redness, warmth, or swelling of the joints. Limited range of motion noted. Motor strength is 5 out of 5 all extremities bilaterally. Tone is normal. Extremities: extremities normal, atraumatic, no cyanosis or edema Pulses: 2+ and symmetric Skin: Skin color, texture, turgor normal. No rashes or lesions Lymph nodes: Cervical, supraclavicular, and axillary nodes normal. DATA, personally reviewed Recent Labs Lab 07/02/18 0607/01/18 0630 06/30/18 0447 WBC 2.62* 3.72* 3.55* HGB 13.4 13.8 15.4 HCT 38.4* 39.4 45.1 PLT 126* 147* 158 NEUTOPHILPCT 58.07 36.89 35.83 MONOPCT 8.25 12.51 18.48 Recent Labs Lab 07/02/18 0612 07/01/18 1457 07/01/18 0630 06/30/18 0447 06/29/18 1326 NA 146* -- 144 138 146* K 4.0 -- 4.0 3.7 3.9 CL 106 -- 108 105 108 CO2 30 -- 27 25 26 BUN 19 -- 24 20 21 CREATININE 0.85 1.12 1.42* 0.9 1.10 PROT -- -- 5.8* 7.3 7.3 BILITOT -- -- 0.5 0.8 1.0 ALT -- -- 13 24 16 AST -- -- 16 15 20 Phosphorus: Lab Results Component Value Date PHOS 3.6 07/02/2018 Recent Labs Lab 07/02/18 0612 07/01/18 0630 06/30/18 0447 MG 1.6* 1.8 2.0 Recent Labs Lab 07/01/18 0830 BEART 0 Recent Labs Lab 07/01/18 0438 TSH 0.855 Recent Labs Lab 06/29/18 2343 06/29/18 2041 TROPONINI <0.006 <0.006 Radiology, personally reviewed Ct Soft Tissue Neck With Iv Contrast Result Date: 07/02/2018 1. There is mild mucosal edema of the nasopharynx and adenoids with mild narrowing of the n asopharyngeal and oropharyngeal airways. The vocal cords appear closed. The trachea and la rynx appear patent. There is no evidence of focal associated mass. There is no significant lymphadenopathy. 2. There is continued moderate to marked opacification the mastoid air cell s that is stable from the prior MRI. There is thickening of the tympanic membranes bilatera lly. This may represent mastoiditis. There is no evident complication. 3. Paws-oa-ozqourvs S-type curvature of the cervical and upper thoracic spine is fairly stable from the prior M RI. There is slight progression of degenerative spondylosis with multilevel mild appearing canal stenosis and moderate foraminal stenosis. Signed by: MD Chase, Bam Sign Date/Amilcar e: 07/02/2018 12:[address] L-spine Without Contrast Result Date: 06/29/2018 *No acute fracture of the lumbar spine. *Mild lumbar spondylosis. *Small (2 mm) nonobstruct wilmer bilateral renal stones. Signed by: Med Armstrong Sign Date/Time: 06/29/2018 2:47 PM Mri Brain Without Contrast Result Date: 06/30/2018 1. No evidence of intracranial ischemia, heterotopia or mesial temporal sclerosis. No mass effect, mass, or signal abnormality to suggest cerebritis/edema 2. A few scattered foci of FLAIR bright signal, likely representing a few foci of gliosis microvascular disease 3. Bi lateral mastoiditis or other infiltration Signed by: Skyler Packer Sign Date/Time: 2018 8:08 AM Mri Lumbar Spine Without Contrast Result Date: 06/30/2018 *Small left foraminal annular fissure and disc protrusion at L4-L5 contacting the left L4 n erve root. Possible impingement of left L4 nerve root. *Posterior central annular fissure a nd disc protrusion at L5-S1. Annular fissure can cause discogenic pain. *Additional findings as detailed above. Signed by: Med Armstrong Sign Date/Time: 06/30/2018 7:20 AM Nm Myocardial Perfusion Spect (stress And Rest) Result Date: 06/30/2018 1. No evidence of ischemia or infarct. 2. Normal LV wall motion. 3. LVEF 60% rest, 56% stre ss. Low risk stratification. Signed by: Stevie Power Sign Date/Time: 06/30/2018 10:23 AM X-ray Chest 1 View Result Date: 07/01/2018 Minimal bibasilar subsegmental atelectasis. Signed by: Trent Krishna Sign Date/Time: 019 8:30 AM Xr Chest Ap Portable Result Date: 06/29/2018 Negative chest. Signed by: Srinivasan Curry Sign Date/Time: 06/29/2018 4:14 PM PLAN -discharge home. -follow medications as outlined below. -follow up with providers as indicated. Disposition: Home Condition: Stable Code Status: DNR/DNI Discharge Instructions Call MD for: Persistant Dizziness or Light-Headedness Call MD for: Difficulty Breathing, Headache or Visual Disturbances Call MD for: Severe Uncontrolled Pain Follow up: Jimenez Calvo MD [address] [facility] [address] As needed, post hospital follow up Jacob Bose MD [address] [place] [address] [phone] Schedule an appointment as soon as possible for a visit in 2 weeks post hospital follow up Gloria Yoo NP [address] [facility] [phone] Schedule an appointment as soon as possible for a visit in 1 week post hospital follow up Medication List START taking these medications ipratropium-albuterol 20-100 MCG/ACT inhaler QTY: 1 each Refills: 11 Commonly known as: COMBIVENT RESPIMAT Inhale 1 puff into the lungs 4 (four) times daily. lidocaine 5 % QTY: 30 patch Refills: 0 Commonly known as: LIDODERM Place 2 patches onto the skin daily for 30 days. methocarbamol 500 MG tablet QTY: 40 tablet Refills: 0 Commonly known as: ROBAXIN Take 1 tablet by mouth 4 (four) times daily as needed for up to 10 days. CONTINUE taking these medications ANTI-DIARRHEAL 2 MG capsule Refills: 0 Generic drug: loperamide BREO ELLIPTA 100-25 mcg/inh inhaler Refills: 0 Generic drug: fluticasone furoate-vilanterol DEXILANT 60 MG capsule Refills: 0 Generic drug: dexlansoprazole DIPHENOXYLATE-ATROPINE PO Refills: 0 divalproex 250 MG 24 hr tablet Refills: 0 Commonly known as: DEPAKOTE hydrOXYzine 25 MG tablet Refills: 0 Commonly known as: ATARAX loratadine 10 MG tablet Refills: 0 Commonly known as: CLARITIN pregabalin 150 MG capsule Refills: 0 Commonly known as: LYRICA sumatriptan 100 MG tablet Refills: 0 Commonly known as: IMITREX TIVICAY 50 MG tablet Refills: 0 Generic drug: dolutegravir sodium traZODone 100 MG tablet Refills: 0 Commonly known as: DESYREL TRUVADA 200-300 MG per tablet Refills: 0 Generic drug: emtricitabine-tenofovir DF You might also be taking other medications not listed above. If you have questions about an y of your other medications, talk to the person who prescribed them or your Primary Care Pro vider. Where to Get Your Medications These medications were sent to [facility][id number] - [place], [place] - [address], [place] [address] ipratropium-albuterol 20-100 MCG/ACT inhaler methocarbamol 500 MG tablet You can get these medications from any pharmacy Bring a paper prescription for each of these medications lidocaine 5 % Discharge took 48 minutes, to include final examination, discussion of admission, and prepa ration of prescriptions, instructions for on-going care, follow-up and documentation of disc harge summary. Dictation and merchandise handler or software, [employer], used which may contain error for similar s ounding words even after review. Personal communication requested for any clarification. RADHA VILLARREAL MD 07/02/2018 4:05 PM documented in this en counter Medications at Time of Discharge + + [...] Progress Notes Conversion Transaction, Provider Unknown - 07/02/2018 4:41 PM PSTFormatting of this note m ight be different from the original. Progress Notes by Shellie Pedraza at 07/02/181640 Author: Shellie Pedraza Service: (none) Author Type: Gear Grinder Filed: 07/02/181642 Date of Service: 07/02/181640 Status: Signed Global Marketing Manager: Shellie Pedraza (Gear Grinder) Confirmed with JAZ Baileyradio communications superintendent instructions and patient education. Confirmed peripheral IV line on the right forearm intact with RN. Patient meets discharge criteria. Discharge instructions reviewed and questions answered by RN. Patient v/s stable at time of discharge confirmed with RN. Patient discharge home via p [address] vehicle with friend. All patient belongings accounted for and with patient at time of discharge. Ambulated patient out by wheelchair. Reiterated to patient the importance of taty eduling follow up visits with providers as listed on AVS. Pt verbalizes understanding with n o questions or concerns. Shellie Pedraza. Sharon, SN. Maya Britton, PT - 07/02/2018 12:19 PM PSTFormatting of this note might be different from th e original. Therapy Progress Note by Nishi Mccollum PT at 07/02/18 1219 Author: Nishi Mccollum PT Service: (none) Author Type: Physical Therapist Filed: 07/02/18 1223 Date of Service: 07/02/181218 Status: Signed Global Marketing Manager: Nishi Mccollum PT (Physical Therapist) 07/02/18 121 PT Last Visit PT Received On 07/02/18 Reason for Treatment Other (comment) (B-LE numbnees, falls, pain) Requires PT Follow Up Refused Other Comments Comments Pt states he is absolutely exhausted and unable to get up at this time. Will check back later as able. onversion Transa trung, Provider Unknown - 07/02/2018 5:55 AM PST Nurse Progress Note by Lisa Howell RN at 07/02/18554 Author: Lisa Howell RN Service: (none) Author Type: Registered Nurse Filed: 07/02/1856 Date of Service: 07/02/18554 Status: Signed Global Marketing Manager: Lisa Howell RN (Registered Nurse) No acute changes from previous assessment. Pt denies any more episodes of CP. Lungs mildl y coarse, diminished in bases and unchanged. VSS. End of shift check complete. onver martine Transaction, Provider Unknown - 07/01/2018 9:45 PM PST Nurse Progress Note by Lisa Howell RN at 07/01/182144 Author: Lisa Howell RN Service: (none) Author Type: Registered Nurse Filed: 07/02/18315 Date of Service: 07/01/182144 Status: Signed Global Marketing Manager: Lisa Howell RN (Registered Nurse) Upon arrival to room, pt states he was just about to call this RN. States he started havin g another episode of 4-5/10 L sided chest pain. O2 96% on RA. Lungs coarse and diminished. No wheezing or adventitious lung sounds heard. 40 mg IV solumedrol given per MD orders. Instructed pt to call this RN if CP returned or of any difficulty breathing. onver martine Transaction, Provider Unknown - 07/01/2018 6:04 PM PST Nurse Progress Note by Wilmar Church RN at 07/01/18 2470 Author: Wilmar Church RN Service: (none) Author Type: Registered Nurse Filed: 07/01/181843 Date of Service: 07/01/181803 Status: Addendum Global Marketing Manager: Wilmar Church RN (Registered Nurse) Related Notes: Original Note by Wilmar Church RN (Registered Nurse) filed at 07/01/181835 180: Pt reporting feeling tight chest, similar to onset prior to RAT activation. RN at bed side- pt in apparent distress, encouraged to pace breathing. SpO2 94% on room air. LS dimini shed in bases with insp/exp wheezing w/ ausculation. Pt experiencing increased coughing, sca nt clear sputum. 1805: Provider called and orders for increased frequency of duo-neb treatment. RT called fo r STAT neb treatment. RN remains at bedside to monitor pt. 1808: Pt coughing up clear sputum, induces episode of wretching. 181: Pt vomiting approximately 50 mL. Encouraged to continue pacing breathing. SpO2 96 % R A, HR 78/min, RR 21/min. 181: Pt states he feels dizzy again. Wretching returns. 1822: SpO2 93% RA, HR 81/min, RR 17/min. 1826: Pt appearing able to continue pacing breathing. States he feels clammy. No apparent d iaphoresis. SpO2 95-96% RA, RR 17-20/ min. 1834: Provider/ RT at bedside. Neb treatment started. onver martine Transaction, Provider Unknown - 07/01/2018 5:47 PM PST Nurse Progress Note by Wilmar Church RN at 07/01/181746 Author: Wilmar Church RN Service: (none) Author Type: Registered Nurse Filed: 07/01/181746 Date of Service: 07/01/181746 Status: Signed Global Marketing Manager: Wilmar Church RN (Registered Nurse) End of shift audit complete. Khalida Sky PT - 07/01/2018 2:55 PM PSTFormatting of this note might be different from nicole e original. Progress Notes by Khalida Portillo PT at 07/01/181454 Author: Khalida Portillo PT Service: Specialist Author Type: Physical Therapist Filed: 07/01/181455 Date of Service: 07/01/181454 Status: Signed Global Marketing Manager: Khalida Portillo PT (Physical Therapist) From [facility]: DAILY FOREVER! :-) Every commercial- move Read- every 5pg-move: Lying in bed: go slowly! 1)*Ankle pumps; 9)*Push heels down; 2)*Squeeze bottom/gluts/bladder; 3)*Push back of knees into bed/straight knees; 4) Straight leg up and down; 10) Scoot R/L; 5) Straight leg-slide out to side/back; 6) Heel slide- bring knee up/down to chest; 7) Jelly fish hands/feet- toe moss picker; 8) Straight arms-lift high-w/out pain, breath deep; * "1000-a -day" Both knees bent: 1) push bottom up/slight bridge(one knee bent-like one leg roll); 2) Rock knees R/L; 3) Bridge; 4) Rock baby; 5) Alternate reach -straight arms; 6) Chin tuck Sittin) Lift outside on foot; 1) Tap toes; 10) ABC's; 11) Lift breastbone; 2) Straighten knee and bend/kick ball; 3) Lift knee/march; 4) Step knee/foot out to side and back; 5) Squeeze bottom; 6) Straight arms-lift high w/out pain- deep breath; 7) Sit to stand 5x; 8) Scoot R/L B/F; 9) Backward shoulder rolls; NEVER GO THROUGH PAIN!!! Start slowly!!! Be safe!!! Standing- at counter: 1) Toe/heel raises; 2) March- lift knee; 3) Straight leg back; 4) Straight leg out to side; 5) Bend knee-kick self; 6) Push ups; 7) Back to wall-bend knees-flatten back Walking(Forward/Backward): 1) Side step; 2) Toe walk-Heel walk; 3) High knee march; 4) Toe to heel walk; Balance(Eyes Open/Close-Foam): 1) Feet together; 2) Toe to instep; 3) Heel to Toe; 4) Single foot stand; "*1000-a-day" Lying on back 1) Ankle pumps; 2) Squeeze bottom; 3) Push knees into bed; 4) Straight leg up; 5) Straight leg out; 6) Heel slide; Both knees bent: 1) push bottom up/slight bridge(one knee bent-like one leg roll); 2) Rock knees R/L; 3) Bridge; 4) Rock baby; 5) Alternate reach -straight arms; 6) Chin tuck Radha Clemens M D - 07/01/2018 2:44 PM PST Progress Notes by Radha Villarreal MD at 07/01/18 1444 Author: Radha Villarreal MD Service: Hospitalist Author Type: Physician Filed: 07/01/18 6409 Date of Service: 07/01/18 1444 Status: Addendum Global Marketing Manager: Radha Villarreal MD (Physician) Related Notes: Original Note by Radha Villarreal MD (Physician) filed at 07/01/18 1532 [facility] Service: Hospitalist Progress Note Hospital Day: LOS: 0 days SUBJECTIVE Patient Summary: 52-year-old male with history of HIV, treated hepatitis C and B foll owed by Dr. Calvo as an outpatient, history of lumbar degenerative disc disease, seizure/pseu doseizure but has not taken his Depakote for 5 years until a few days prior to this admissio n when he established care with a new primary care physician who had an accidental fall at [facility] and presented with acute low back pain. Also reports of of multiple seizures every week. He denied any saddle paresthesia, no bladder or bowel incontinence. While in the emergency room, the patient also complained of left-sided chest pain. Subsequently, he was admitted fo r further workup. Telemetry has been unremarkable. Serial troponins were negative. Cardiac s tress test showed no evidence of ischemia or infarct with normal LV wall motion. LV ejection fraction 60 percent at rest and 56 percent stress. CAT scan of the lumbar spine showed no a cute fracture with mild lumbar spondylosis and 2 mm nonobstructive bilateral renal stones. F urthermore, MRI of the lumbar spine showed small left foraminal annular fissure and disc pro trusion L4-L5 contacting the left L4 nerve root. Possible impingement of the left L4 nerve r oot. Posterior central annular fissure and disc protrusion at L5-S1. Annular fissure can cau se discogenic pain. This was reviewed with neurosurgeon case monitor, Dr. Salas who recommended pain control at this time. No surgical intervention indicated. Patient was also evaluated b y neurology, Dr. Goss who recommended 6 hour EEG. Fortunately, when this was started, the p atelizabeth had an episode of anxiety and pulled out all the wires. The test needed to be restart ed. Events Overnight: 06/30/2018 Seen and examined patient. Over all, he was much, when I saw him. Denies having a ny chest pain but continues to have low back pain particularly when changing position. No sh ortness of breath. 07/01/2018 Seen and examined patient. Today, a RAT was called. Patient had an episode of sev ere shortness of breath associated with oxygen laceration down to the low 90s, respiratory d istress and wheezing. I attended the RAT. Stat laboratories and imaging were ordered. Eventu ally he became more stable. ABG came back unremarkable. Chest x-ray showed atelectasis. BNP, Propulsid done in, lactic acid are all normal. Scheduled Medications budesonide-formoterol 2 puff Inhalation 2 times daily diphenhydrAMINE diphenhydrAMINE 50 mg Intravenous Once divalproex 500 mg Oral BID dolutegravir sodium 100 mg Oral Daily emtricitabine-tenofovir DF 1 tablet Oral Daily enoxaparin 40 mg Subcutaneous Q24H lidocaine 2 patch Transdermal Daily losartan-hydrochlorothiazide 1 tablet Oral Daily methocarbamol 500 mg Oral 4x Daily methylPREDNISolone pantoprazole 40 mg Oral QAM AC pregabalin 150 mg Oral QAM pregabalin 300 mg Oral Nightly sodium chloride 10 mL Intravenous Q8H traZODone 100 mg Oral Nightly Continuous Infusions PRN Medications acetaminophen OR acetaminophen, diphenoxylate-atropine, fentaNYL, hydrALAZINE, loratadi ne, LORazepam, ondansetron OR ondansetron, polyethylene glycol, regadenoson, sumatriptan OBJECTIVE Vital Signs: Vitals: 07/01/18 0816 07/01/18 0830 07/01/18 0833 07/01/18 1135 BP: (!) 152/97 138/88 126/80 BP Location: Right upper arm Pulse: 78 77 75 91 Resp: 20 18 20 Temp: 98.6 F (37 C) TempSrc: Oral SpO2: 99% 94% 93% 95% Weight: Height: Physical Exam General appearance: alert, appears stated age and cooperative. Frail and fatigued-looking b ut very interactive. No distress. HEENT full sentences. Head: Normocephalic, without obvious abnormality, atraumatic Neck: no adenopathy, no carotid bruit, no JVD, supple, symmetrical, trachea midline and thy roid not enlarged, symmetric, no tenderness/mass/nodules Lungs: Low pitched expiratory rhonchi to auscultation bilaterally but more prominent on the upper airways Heart: regular rate and rhythm, S1, S2 normal, 2/6 systolic murmur, click, rub or gallop Abdomen: soft, non-tender; bowel sounds normal; no masses, no organomegaly Musculoskeletal: There is no redness, warmth, or swelling of the joints. Limited range of motion noted. Motor strength is 5 out of 5 all extremities bilaterally. Tone is normal. Extremities: extremities normal, atraumatic, no cyanosis or edema Pulses: 2+ and symmetric Skin: Skin color, texture, turgor normal. No rashes or lesions Lymph nodes: Cervical, supraclavicular, and axillary nodes normal. DATA, personally reviewed Recent Labs Lab 07/01/18 0630 06/30/1844606/29/18 1326 WBC 3.72* 3.55* 4.66 HGB 13.8 15.4 16.2 HCT 39.4 45.1 47.9 PLT 147* 158 164 NEUTOPHILPCT 36.89 35.83 74.18 MONOPCT 12.51 18.48 12.87 Recent Labs Lab 07/01/18 0630 06/30/18 0447 06/29/18 1326 NA 144 138 146* K 4.0 3.7 3.9 CL 108 105 108 CO2 27 25 26 BUN 24 20 21 CREATININE 1.42* 0.9 1.10 PROT 5.8* 7.3 7.3 BILITOT 0.5 0.8 1.0 ALT 13 24 16 AST 16 15 20 Phosphorus: Lab Results Component Value Date PHOS 4.1 07/01/2018 Recent Labs Lab 07/01/18 0630 06/30/18 0447 MG 1.8 2.0 Recent Labs Lab 06/29/18 2343 06/29/18 2041 TROPONINI <0.006 <0.006 Radiology, personally reviewed Ct L-spine Without Contrast Result Date: 06/29/2018 *No acute fracture of the lumbar spine. *Mild lumbar spondylosis. *Small (2 mm) nonobstruct wilmer bilateral renal stones. Signed by: Med Armstrong Sign Date/Time: 06/29/2018 2:47 PM Mri Brain Without Contrast Result Date: 06/30/2018 1. No evidence of intracranial ischemia, heterotopia or mesial temporal sclerosis. No mass effect, mass, or signal abnormality to suggest cerebritis/edema 2. A few scattered foci of FLAIR bright signal, likely representing a few foci of gliosis microvascular disease 3. Bi lateral mastoiditis or other infiltration Signed by: Skyler Packer Sign Date/Time: 2018 8:08 AM Mri Lumbar Spine Without Contrast Result Date: 06/30/2018 *Small left foraminal annular fissure and disc protrusion at L4-L5 contacting the left L4 n erve root. Possible impingement of left L4 nerve root. *Posterior central annular fissure a nd disc protrusion at L5-S1. Annular fissure can cause discogenic pain. *Additional findings as detailed above. Signed by: Med Armstrong Sign Date/Time: 06/30/2018 7:20 AM Nm Myocardial Perfusion Spect (stress And Rest) Result Date: 06/30/2018 1. No evidence of ischemia or infarct. 2. Normal LV wall motion. 3. LVEF 60% rest, 56% stre ss. Low risk stratification. Signed by: Stevie Power Sign Date/Time: 06/30/2018 10:23 AM Xr Chest Ap Portable Result Date: 06/29/2018 Negative chest. 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 Telemetry unremarkable. Serial troponins negative. The cardiac stress test was unremarkable for any ischemia. Unremarkable A1c, lipid profile and TSH. At this point, most likely noncardiac chest pain suspect musculoskeletal. Lumbar back pain Noted changes in the lumbar spine based on MRI. This was reviewed with neurosurgery case monitor. No indication for any surgical intervention at this time. Supportive measures with prn pain medications. Continue Lyrica for neuropathy. Physical therapy consult. Hypertension Continue losartan/hydrochlorothiazide. Blood pressures are coming down. Seizures/pseudoseizures His Depakote level is low and admittedly, he has not been taking this for the past 5 years. Discussed with neurology, 6 hour EEG was done. 2 hours however leads were disconnected. The remaining 4 hours did not show any epilepsy/seizures as indicated by Dr. Goss. This could be pseudoseizures both recommended to continue with Depakote. The patient is not interested in seeing neuropsychiatry. Acute kidney injury We will repeat creatinine stat. In the meantime, will stop the lisinopril/hydrochlorothiazide and will give saline 75 cc an hour. Acute respiratory distress Stat ABG, chest x-ray, laboratories were all unremarkable. Patient was given 1 dose of Solu-Medrol. On the check, wheezing has resolved. Wheezing was heard mostly in the upper airways. Continue oxygen supplementation and taper off slowly. DVT prophylaxis: In place. GI prophylaxis: In place. 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 Personal communication requested for any clarification. RADHA VILLARREAL MD 07/01/2018 2:44 PM Khalida Paz P T - 07/01/2018 2:35 PM PST Therapy Progress Note by Khalida Portillo PT at 07/01/18 7814 Author: Khalida Portillo PT Service: Specialist Author Type: Physical Therapist Filed: 07/02/18 0709 Date of Service: 07/01/18 1435 Status: Signed Global Marketing Manager: Khalida Portillo, PT (Physical Therapist) 07/01/18 1435 PT Last Visit PT Received On 07/01/18 Reason for Treatment Other (comment) (B-LE numbnees, falls, pain) Requires PT Follow Up Yes;Awaiting tx order Follow up PT Only? No Focus for Next Treatment Stair Training;Equipment Trial (4WW) PT Eval/Reassessment Date 07/01/18 Assistance Required 1 person (DO galeano with little pre- notice) Entry Level Electrician Needed No Home Environment Type of Home Home one story Home Exterior Layout Entry steps none Home Interior Layout Lives on main level with bedroom/bathroom Bathroom Shower/Tub Tub/shower unit Bathroom Toilet Standard Home Equipment None Prior Function Level of Bailey Independent with functional mobility;Modified independent with ADLs;A ssist with IADLs;Household distance Falls in Past Year Yes (DO galeano) Lives With Spouse Receives Help From Family Employment Retired for disability Leisure (due to his falls- not [id number]) RUE Assessment RUE Assessment WFL (B-UE-WFL ROM- functional strength-from activity-no MMT) LUE Assessment LUE Assessment WFL RLE Assessment RLE Assessment X (B-LE-WFL ROM-unable to MMT d/t pain-at least3/5 at this time) LLE Assessment LLE Assessment X Cognition Overall Cognitive Status WFL Orientation Level Oriented Comments patient reported he is frustrated with the way [facility] has been "not" treati ng him/poor care; he reported that he doesn't get notice of buckling, but during session PT noticed some shakiness in knees- then he reported that this usually happens before buckling- so instructed him- to lock wheels and sit down- don't try to push on Sensation Additional Comments B-YY-kuicmlg numbness- pain- tingling Vision-Basic Assessment Current Vision No visual deficits Assessment of Patient Status Assessment of Patient Status Decreased LE strength;Decreased ADL status;Decreased function al mobility;Decreased safety judgement during mobility;Decreased safety awareness;Decreased insight into deficits;Decreased endurance;Pain;Precautions (he reports that he does not kknow whats going on w/his B-LE) Prognosis Should progress with skilled therapy intervention;Limited by multiple medical com plications Safety Devices Safety Devices in Place (call delgadillo in reach; biology laboratory assistant entered as PT finishing) Precautions Other Precautions high fall risk- use gait belt Activity Tolerance Endurance Fair Sitting Balance Moves/returns trunkal midpoint 1-2 inches in multiple planes Plan Treatment/Interventions Continue with skilled PT services;Assist d/c plannning;Balance sherita lexa;Bed mobility training;Family training;Gait training;Provide HEP;Review precautions;Set goals;Stair training;Therapeutic exercise;Transfer training Progress Slow progress, medical status limitations;Slow progress, decreased activity tolera nce PT Frequency 3-5x/wk;5-7x/wk Care Duration (# of days) 7 # of days Recommendation Recommendations Prior Setting;Home Assist;OP PT (with amber portillo at q/spine eval) Equipment Recommended Walker 4 wheeled Barriers to Discharge Pain;Neurological Impairment (see comment);Self-care Deficits Impacti ng Functional Bailey;Physical Deficits Impacting Functional Bailey PT Ready for Discharge (once medically stable) Recommendation Comments Patient stated he is going home with - once doctors finish with him 07/01/18 1435 PT Last Visit PT Received On 07/01/18 Reason for Treatment Other (comment) (B-LE numbnees, falls, pain) Requires PT Follow Up Yes;Awaiting tx order Follow up PT Only? No Focus for Next Treatment Stair Training;Equipment Trial (4WW) PT Eval/Reassessment Date 07/01/18 Assistance Required 1 person (B-LE buckle with little pre- notice) Entry Level Electrician Needed No Precautions Other Precautions high fall risk- use gait belt Other Comments Comments patient supine in bed- agreed to PT at this time- stated he just wants to figure o ut what's going on with his legs/back and get it treated "finally" pain can be severe 8/10, but not always- sometimes can be as low as 3/10 Cognition Overall Cognitive Status WFL Orientation Level Oriented Comments patient reported he is frustrated with the way [facility] has been "not" treati ng him/poor care; he reported that he doesn't get notice of buckling, but during session PT noticed some shakiness in knees- then he reported that this usually happens before buckling- so instructed him- to lock wheels and sit down- don't try to push on Bed Mobility Supine to Sit Modified independent;To left;Verbal instruction Sit to Supine Modified independent;Verbal instruction;To left;x 1 person Transfers Sit to/from Stand Minimal assist (steadying/contact guard);Verbal instruction;Standby breanna t;x 1 person Mobility Ambulation Assistance Minimal assist;Verbal instruction;X1;Safety concerns Maximal Ambulation Distance (feet) 10ft x2 Total Ambulation Distance (feet) 20ft Distance limited by? Patient's ability Pattern Alternating;Decreased kailash;Left dec toe clearance;Right dec toe clearance;Circum duction right;Circumduction left (heavy use of 2WW) Assistive Device Walker front wheeled (4WW kera available) Stairs Assistance Safety concerns;WAYNE Supine Supine-Exercise Type Ankle pumps;Quad sets;Glut sets;ABD/ADD;Heel slides Supine-Exercise Comments do often Modalities Modalities Other therapy Other Therapy Ongoing education Activity Tolerance Activity Tolerance Treatment limited secondary to medical complications;Patient limited by pain;Patient limited by fatigue Nurse Made Aware yes Safety Devices Safety Devices in Place (call delgadillo in reach; biology laboratory assistant entered as PT finishing) Plan Treatment/Interventions Continue with skilled PT services;Assist d/c plannning;Balance sherita lexa;Bed mobility training;Family training;Gait training;Provide HEP;Review precautions;Set goals;Stair training;Therapeutic exercise;Transfer training Progress Slow progress, medical status limitations;Slow progress, decreased activity tolera nce PT Frequency 3-5x/wk;5-7x/wk Care Duration (# of days) 7 # of days Recommendation Recommendations Prior Setting;Home Assist;OP PT (with amber portillo at q/spine eval) Equipment Recommended Walker 4 wheeled Barriers to Discharge Pain;Neurological Impairment (see comment);Self-care Deficits Impacti ng Functional Bailey;Physical Deficits Impacting Functional Bailey PT Ready for Discharge (once medically stable) Recommendation Comments Patient stated he is going home with - once doctors finish with him onversion Transoz ction, Provider Unknown - 07/01/2018 12:19 PM PST Case Management by DEO Basurto at 07/01/18 9818 Author: DEO Basurto Service: (none) Author Type: Drafter Assistant Filed: 07/01/18 1220 Date of Service: 07/01/181218 Status: Signed Global Marketing Manager: DEO Basurto (Drafter Assistant) CM met with pt for discharge planning. Pt is 52 years old and lives with his significant ot her in a 2-level home. Pt is independent with his mobility. Pt denied any difficulty obtaini ng his medications and had no resource concerns at this time. CM will continue to follow as needed. 07/01/181217 Discharge Planning Evaluation Admitting Diagnosis Back Pain Readmission No Living Arrangements Spouse/significant other Support Systems Spouse/significant other Type of Residence Private residence House type House 2 story Bathrooms on 1st Floor 1-Full Independent with ADL's Yes Independent with Mobility Yes Home Care Services No Caregiver after Discharge Yes Caregiver Name Gabriel Greenberg Relationship to Patient spouse Phone number [phone] Mental Status Oriented Anticipated Discharge Plan Post Acute Care Needs None at this time Resources Financial concerns No Transportation issues No Patient/Family concerns No Prescription Plan Yes Anticipated Disposition Facility Type Home Medicare Important Message (JOSEF) Not applicable Met with: Patient and discussed discharge planning, Pt is a 52 y.o., male Patient's PCP is: JIMENEZ CALVO Patient's insurance: Medicare Coverage concerns: None Medication coverage/concerns: None Community resources utilized / needed: None Assistance in transportation: Not needed. Identification of any specific education / training: None Barriers to Discharge / Alternative housing needed: None Anticipated DCP: Home onver martine Marin, Provider Unknown - 07/01/2018 8:29 AM PST Nurse Progress Note by Tasha Boston RN at 07/01/18828 Author: Tasha Boston RN Service: (none) Author Type: Registered Nurse Filed: 07/01/1833 Date of Service: 07/01/18828 Status: Signed Global Marketing Manager: Tasha Boston RN (Registered Nurse) Staff assist called by MOVIE STAR, pt was gasping, telling MOVIE STAR and RN that he was "having trouble breathing, something's stuck in my throat, it's swelling up." Pt became red in the face, RAT called. Dr. Villarreal on the unit, ordered STAT CXR and ABG. Pt repositioned in bed, oxymask pl aced on 8 L initially. IV solumedrol given along with Duoneb treatment. CXR completed. Pt re ports feeling slightly better, work of breathing improved. Pt placed on 3 L nasal cannula, V S cycling. Per Dr. Villarreal, continue to monitor pt closely for any seizure activity. Vilma Swenson OTR/L - 07/01/2018 8:12 AM PSTFormatting of this note might be different from t he original. Therapy Progress Note by SHARONA Limon/L at 07/01/18 0812 Author: SHARONA Limon/Cheryl Service: (none) Author Type: Occupational Therapist Filed: 07/01/18 1300 Date of Service: 07/01/18 0812 Status: Signed Global Marketing Manager: SHARONA Limon/Cheryl (Occupational Therapist) 07/01/18 0812 OT Last Visit OT Received On 07/01/18 Requires OT Follow Up On hold Other Comments Comments Pt had RAT called this date. Plan for follow up as new orders obtained and as pt a ppropriate to participate. onversion Trans action, Provider Unknown - 07/01/2018 7:01 AM PST Nurse Progress Note by Marco Alvares RN at 07/01/18 0701 Author: Marco Alvares RN Service: (none) Author Type: Registered Nurse Filed: 07/01/18 0703 Date of Service: 07/01/18 07 Status: Signed Global Marketing Manager: Marco Alvares RN (Registered Nurse) Patient is more alert and awake. BP is now 115/72. Pt states, "I'm feeling less drowsy this morning" onver martine Transaction, Provider Unknown - 07/01/2018 4:55 AM PST Nurse Progress Note by Marco Alvares RN at 07/01/18 0455 Author: Marco Alvares RN Service: (none) Author Type: Registered Nurse Filed: 07/01/188 Date of Service: 07/01/18454 Status: Signed Global Marketing Manager: Marco Alvares RN (Registered Nurse) Patient stated,"I think that Trazodone was too much for me since I've been off of it for aw hile" Patient reporting of feeling drowsy. onver martine Transaction, Provider Unknown - 07/01/2018 4:47 AM PST Nurse Progress Note by Marco Alvares RN at 07/01/18446 Author: Marco Alvares RN Service: (none) Author Type: Registered Nurse Filed: 07/01/18454 Date of Service: 07/01/18446 Status: Signed Global Marketing Manager: Marco Alvares RN (Registered Nurse) MOVIE STAR notified this RN of oxygen saturation level at 79, BP 95/60. Applied 4L nasal canula, o xygen level 97. Keeping patient on 1L of oxygen while asleep with oxygen level at 95. BP rec heck 99/58. onver martine Transaction, Provider Unknown - 07/01/2018 12:20 AM PST Nurse Progress Note by Marco Alvares RN at 07/01/1819 Author: Marco Alvares RN Service: (none) Author Type: Registered Nurse Filed: 07/01/18446 Date of Service: 07/01/1819 Status: Signed Global Marketing Manager: Marco Alvares RN (Registered Nurse) BP 74/44, recheck 91/51. Pt complaints of feeling more weak, lightheaded, and dizzy. MD Brandt sanz notified of being symptomatic. Ordered NS bolus. onver martine Transaction, Provider Unknown - 06/30/2018 7:37 PM PST Nurse Progress Note by Clemente Jensen RN at 06/30/181936 Author: Clemente Jensen RN Service: (none) Author Type: Registered Nurse Filed: 06/30/181937 Date of Service: 06/30/181936 Status: Signed Global Marketing Manager: Clemente Jensen RN (Registered Nurse) Report given to JAZ Lara who will assume patient care at this time. End of shift audit completed onver martine Transaction, Provider Unknown - 06/30/2018 2:58 PM PST Therapy Progress Note by SHARONA Cardenas/Cheryl at 06/30/181457 Author: SHARONA Cardenas/Cheryl Service: (none) Author Type: Occupational Therapist Filed: 06/30/181457 Date of Service: 06/30/181457 Status: Signed Global Marketing Manager: SILVANA Cardenas (Occupational Therapist) 06/30/18 1400 OT Last Visit Requires OT Follow Up Unavailable Other Comments Comments Pt currently getting test/procedure. Per RN, will not be available for a few more hours. Radha Gaming MD - 06/30/2018 2:05 PM PSTFormatting of this note might be different from the or iginal. Progress Notes by Radha Villarreal MD at 06/30/18 0329 Author: Radha Villarreal MD Service: Hospitalist Author Type: Physician Filed: 06/30/18 1445 Date of Service: 06/30/18 1405 Status: Addendum Global Marketing Manager: Radha Villarreal MD (Physician) Related Notes: Original Note by Radha Villarreal MD (Physician) filed at 06/30/18 1445 [facility] Service: Hospitalist Progress Note Hospital Day: LOS: 0 days SUBJECTIVE Patient Summary: 52-year-old male with history of HIV, treated hepatitis C and B foll owed by Dr. Calvo as an outpatient, history of lumbar degenerative disc disease, seizure/pseu doseizure but has not taken his Depakote for 5 years until a few days prior to this admissio n when he established care with a new primary care physician who had an accidental fall at h ome and presented with acute low back pain. Also reports of of multiple seizures every week. He denied any saddle paresthesia, no bladder or bowel incontinence. While in the emergency room, the patient also complained of left-sided chest pain. Subsequently, he was admitted fo r further workup. Telemetry has been unremarkable. Serial troponins were negative. Cardiac s tress test showed no evidence of ischemia or infarct with normal LV wall motion. LV ejection fraction 60 percent at rest and 56 percent stress. CAT scan of the lumbar spine showed no a cute fracture with mild lumbar spondylosis and 2 mm nonobstructive bilateral renal stones. F urthermore, MRI of the lumbar spine showed small left foraminal annular fissure and disc pro trusion L4-L5 contacting the left L4 nerve root. Possible impingement of the left L4 nerve r oot. Posterior central annular fissure and disc protrusion at L5-S1. Annular fissure can cau se discogenic pain. This was reviewed with neurosurgeon case monitor, Dr. Salas who recommended pain control at this time. No surgical intervention indicated. Patient was also evaluated b y neurology, Dr. Goss who recommended 6 hour EEG. Fortunately, when this was started, the p atient had an episode of anxiety and pulled out all the wires. The test needed to be restart ed. Events Overnight: Seen and examined patient. Over all, he was much, when I saw him. D enies having any chest pain but continues to have low back pain particularly when changing p osition. No shortness of breath. Scheduled Medications budesonide-formoterol 2 puff Inhalation 2 times daily divalproex 500 mg Oral BID dolutegravir sodium 100 mg Oral Daily emtricitabine-tenofovir DF 1 tablet Oral Daily enoxaparin 40 mg Subcutaneous Q24H lidocaine 2 patch Transdermal Daily losartan-hydrochlorothiazide 1 tablet Oral Daily methocarbamol 500 mg Oral 4x Daily pantoprazole 40 mg Oral QAM AC pregabalin 150 mg Oral QAM pregabalin 300 mg Oral Nightly sodium chloride 10 mL Intravenous Q8H traZODone 100 mg Oral Nightly Continuous Infusions PRN Medications acetaminophen OR acetaminophen, diphenoxylate-atropine, fentaNYL, hydrALAZINE, loratadi ne, LORazepam, ondansetron OR ondansetron, polyethylene glycol, regadenoson, sumatriptan OBJECTIVE Vital Signs: Vitals: 06/29/18 2358 06/30/18 0418 06/30/18 0737 06/30/18 1132 BP: 119/70 122/79 123/74 126/78 BP Location: Right upper arm Right upper arm Right upper arm Right upper arm Pulse: 67 71 77 76 Resp: 20 18 20 20 Temp: 98.1 F (36.7 C) 98.2 F (36.8 C) 98.5 F (36.9 C) 98.9 F (37.2 C) TempSrc: Oral Oral Oral Oral SpO2: 97% 98% 95% 95% Weight: Height: Physical Exam General appearance: alert, appears stated age and cooperative. Frail and fatigued-looking b ut very interactive. No distress. HEENT full sentences. Head: Normocephalic, without obvious abnormality, atraumatic Neck: no adenopathy, no carotid bruit, no JVD, supple, symmetrical, trachea midline and thy roid not enlarged, symmetric, no tenderness/mass/nodules Lungs: clear to auscultation bilaterally Heart: regular rate and rhythm, S1, S2 normal, 2/6 systolic murmur, click, rub or gallop Abdomen: soft, non-tender; bowel sounds normal; no masses, no organomegaly Musculoskeletal: There is no redness, warmth, or swelling of the joints. Limited range of motion noted. Motor strength is 5 out of 5 all extremities bilaterally. Tone is normal. Extremities: extremities normal, atraumatic, no cyanosis or edema Pulses: 2+ and symmetric Skin: Skin color, texture, turgor normal. No rashes or lesions Lymph nodes: Cervical, supraclavicular, and axillary nodes normal. DATA, personally reviewed Recent Labs Lab 06/30/1844606/29/18 1326 WBC 3.55* 4.66 HGB 15.4 16.2 HCT 45.1 47.9 PLT 158 164 NEUTOPHILPCT 35.83 74.18 MONOPCT 18.48 12.87 Recent Labs Lab 06/30/18 0447 06/29/18 1326 NA 138 146* K 3.7 3.9 CL 105 108 CO2 25 26 BUN 20 21 CREATININE 0.9 1.10 PROT 7.3 7.3 BILITOT 0.8 1.0 ALT 24 16 AST 15 20 Phosphorus: Lab Results Component Value Date PHOS 3.5 06/30/2018 Recent Labs Lab 06/30/18 0447 MG 2.0 Recent Labs Lab 06/29/18 2343 06/29/18 2041 TROPONINI <0.006 <0.006 Radiology, personally reviewed Ct L-spine Without Contrast Result Date: 06/29/2018 *No acute fracture of the lumbar spine. *Mild lumbar spondylosis. *Small (2 mm) nonobstruct wilmer bilateral renal stones. Signed by: Med Armstrong Sign Date/Time: 06/29/2018 2:47 PM Mri Brain Without Contrast Result Date: 06/30/2018 1. No evidence of intracranial ischemia, heterotopia or mesial temporal sclerosis. No mass effect, mass, or signal abnormality to suggest cerebritis/edema 2. A few scattered foci of FLAIR bright signal, likely representing a few foci of gliosis microvascular disease 3. Bi lateral mastoiditis or other infiltration Signed by: Skyler Packer Sign Date/Time: 2018 8:08 AM Mri Lumbar Spine Without Contrast Result Date: 06/30/2018 *Small left foraminal annular fissure and disc protrusion at L4-L5 contacting the left L4 n erve root. Possible impingement of left L4 nerve root. *Posterior central annular fissure a nd disc protrusion at L5-S1. Annular fissure can cause discogenic pain. *Additional findings as detailed above. Signed by: Med Armstrong Sign Date/Time: 06/30/2018 7:20 AM Nm Myocardial Perfusion Spect (stress And Rest) Result Date: 06/30/2018 1. No evidence of ischemia or infarct. 2. Normal LV wall motion. 3. LVEF 60% rest, 56% stre ss. Low risk stratification. Signed by: Stevie Power Sign Date/Time: 06/30/2018 10:23 AM Xr Chest Ap Portable Result Date: 06/29/2018 Negative chest. 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 Telemetry unremarkable. Serial troponins negative. The cardiac stress test was unremarkable for any ischemia. We will check other secondary risk factors including A1c, lipid profile and TSH. At this point, most likely noncardiac chest pain suspect musculoskeletal. Lumbar back pain Noted changes in the lumbar spine based on MRI. This was reviewed with neurosurgery case monitor. No indication for any surgical intervention at this time. Supportive measures with prn pain medications. Continue Lyrica for neuropathy. Physical therapy. Hypertension Continue losartan/hydrochlorothiazide. Blood pressures are coming down. Seizures His Depakote level is low and admittedly, he has not been taking this for the past 5 years. We will restart this medication. Discussed with neurology, we will proceed with the 6 hour EEG. DVT prophylaxis: In place. GI prophylaxis: In place. Disposition: Observation. Code Status: DNR/DNI Dictation and merchandise handler or software, NetMovies, used which may contain error for similar s ounding words even after review. Personal communication requested for any clarification. RADHA VILLARREAL MD 06/30/2018 2:05 PM onversion Transactio n, Provider Unknown - 06/30/2018 12:41 PM PST Nurse Progress Note by Clemente Jensen RN at 06/30/18 1242 Author: Clemente Jensen RN Service: (none) Author Type: Registered Nurse Filed: 06/30/18 1670 Date of Service: 06/30/18 124 Status: Signed Global Marketing Manager: Clemente Jensen RN (Registered Nurse) An attorney lawyer called the unit lead on [facility]. Claimed patients sister gave num nahomi to attorney lawyer. Cash Sales Audit Clerk requesting medical records. Patient made aware of attorney lawyer's req uest. Patient declined records to be released. Patient at this time now tearful and trembl ing at the news of the attorney lawyer requesting info. Patient stated all she needs to know is th at he is at this hospital nothing more. Patient continues to be tearful and a rise in blood pressure is noted. MD notified of this episode. Patient stated that this criminal lawyer "is haras sing him saying he is a liar and is not really sick". This RN reassured the patient that no records would be released without consent. onver martine Transaction, Provider Unknown - 06/30/2018 8:21 AM PST Therapy Progress Note by Violeta Ray PT at 06/30/18820 Author: Violeta Ray PT Service: (none) Author Type: Physical Therapist Filed: 06/30/18821 Date of Service: 06/30/18820 Status: Signed Global Marketing Manager: Violeta Ray PT (Physical Therapist) 06/30/18820 PT Last Visit PT Received On 06/30/18 Reason for Treatment Other (comment) (back pain) Requires PT Follow Up Unavailable Other Comments Comments pt on way to stress test, will be unavailable for 1-2 hours. PT to return as able. onver martine Transaction, Provider Unknown - 06/30/2018 7:43 AM PST Nurse Progress Note by Catherine Lee RN at 06/30/18742 Author: Catherine Lee RN Service: (none) Author Type: Registered Nurse Filed: 06/30/18742 Date of Service: 06/30/18742 Status: Signed Global Marketing Manager: Catherine Lee RN (Registered Nurse) End of shift chart check complete Catherine Lee RN onver martine Transaction, Provider Unknown - 06/29/2018 10:19 PM PST Nurse Progress Note by Catherine Lee RN at 06/29/182218 Author: Catherine Lee RN Service: (none) Author Type: Registered Nurse Filed: 06/29/182219 Date of Service: 06/29/182218 Status: Signed Global Marketing Manager: Catherine Lee RN (Registered Nurse) Patient family notified to please bring in medication we do not have here. Catherine Lee RN onver martine Transaction, Provider Unknown - 06/29/2018 9:32 PM PST Progress Notes by Seema Babb RPH at 06/29/182131 Author: Seema Babb RPH Service: Pharmacy Author Type: Pharmacist Filed: 06/29/182131 Date of Service: 06/29/182131 Status: Signed Global Marketing Manager: Seema Babb RPH (Pharmacist) Renal Dosing Monitoring: Ivan Giles 52 y.o. male Estimated Creatinine Clearance: 71.7 mL/min (by C-G formula based on SCr of 1.1 mg/dL). Pharmacy dosing for renal function per Dr. French There are no medications needing renal adjustment at this time. Pharmacy will continue monitoring patient for appropriate dosing per renal function. 06/29/2018 9:32 PM Pharmacist: Seema Babb docume nted in this encounter H&P Notes Iesha French MD - 06/29/2018 6:57 PM PSTFormatting of this note might be diff erent from the original. H&P by Iesha French MD at 06/29/181856 Author: Iesha French MD Service: Hospitalist Author Type: Physician Filed: 06/29/181941 Date of Service: 06/29/181856 Status: Signed Global Marketing Manager: Iesha French MD (Physician) [facility] Service: Hospitalist Admission History & Physical Date of Admission: 06/29/2018 Requesting Physician: Dr. Reid Hospitalist Reason for Admission: Acute back pain/chest pain History Obtained From: patient, spouse, chart review, Quality of history: good CHIEF COMPLAINT: Fell and had back pain earlier this morning HISTORY OF PRESENT ILLNESS The patient is a 52 y.o. male with significant past medical history of asthma, hepatitis B and C but the hepatietis c and b has been cleared after treatments, HIV infection with acco rding the patient no H IV RNA in his latest HIV quantitative, sees Dr. Calvo, hypertension, dietary dominant irritable bowel syndrome, pseudoseizures which had been diagnosed by Dr. Grace greenberg At the [facility], the patient does attention of seizures, and according the patient about 6 months back he would have seizures almost everyday to weekly all kinds of seizures grand mal'S TAKES AN AFTER HE STARTED TAKING THE DEPAKOTE HE ONLY HAS THEM 1-2 TIMES A WEEK, WELL PER DR.Maria Avila's notes she was going to refer her patient to Dr. Quintana,, PTSD, bipolar disorder, mixed hyperlipidemia, ventricular septal defect s steven childhood, and according the patient a couple of weeks back to be the Fredo DUP[facility] at [facility] internal medicine clinic had had echocardiogram done on him, and lumbar degenerative disc disease for which had gotten steroid shots from Dr. Dong and Dr. Staley the last ti me he saw Dr. Staley was in 2017. Patient stated that early this morning while he was walking to the refrigerator left leg casas ddenly gave way and he fell more on his right side and subsequently started having increased pain on that back as well as was not able to get up on his own and his significant other tidwell d to get him up, he also stated that his right leg is now "different from the left leg" and he cannot straighten it out. He denied loss of bowel or urinary incontinence, numbness in ei ther legs, [place] complaining of numbness on his fingers on the right hand. But has had that b efore. Patient was told by the beat lasting to go to [facility] Emergency Department, at [facility] Emergency Department patient was afebrile, complaining of pain from 6-8 on his back, and while in the emergency department patient's significant other called nurse and told the patient had had a seizure which lasted for maybe 30 seconds and nurse reported the patient was postictal an d was sleepy and the report here nurse was told that the patient normally has 2-3 seizures a week but had 8-10 in the last 24 hours, however when I worried that the patient and the pat elizabeth's when I saw them I was told that up in 6 months back he had them almost every day but now after review of the Depakote he had about 1-2 seizures a week. Patient also had CMP which showed sodium at 146 ESR CBC and CRP were normal and valproic ac id was less than 3 CT scan of the lumbar spine did not show any acute fracture and small to MM nonobstructive bilateral renal stones, chest x-ray was negative, and after all the toes x -rays had been done and the patient started to complain of left-sided sharp chest pain which according the patient on review of Epic he has had since about August 2017, and according th e patient this lasted about 15 minutes 1-2 times a week sometimes gets worse with exertion a nd sometimes not and goes away on its own, and as well had had echocardiogram done by His P CP to be some [employer] couple of weeks back. EKG did not show any acute ST-T wave changes and troponin I was negative Hospitalist service was called to see the patient, by the time I saw the patient the patien t stated the chest pain was gone main complaint was the back pain. He denied having any feve r or cough, I stated that sometimes he would get short of breath when he had the chest pain if he was walking, he denied any sweats. The chest pain but had sweats when he had had falle n and started to have increased back pain. No nausea no vomiting or diarrhea. REVIEW OF SYSTEMS ROS obtained from patient, spouse, chart review. A comprehensive review of systems was negative except for items mentioned in HPI Past Medical History Diagnosis Date Asthma Hepatitis B 01/25/14 Hepatitis C 2001 HIV infection (HCC) 1988 Hypertension IBS (irritable bowel syndrome) Joint pain Neuromuscular disorder (HCC) Other chronic pain back pain Seizures (HCC) Past Surgical History Procedure Laterality Date CAUDAL BLOCK 05-27-12 Caudal w/ cath target Bilat L5, S1 CAUDAL BLOCK 07-05-12 Caudal w/ cath target Bilat L5, S1 CHOLECYSTECTOMY EPIDURAL STEROID INJECTION 01-25-2014 caudal w/cath target Right L5,S1 HERNIA REPAIR hiatal LUMBAR EPIDURAL INJECTION 03-15-12 Bilat L5 TFESI (at [facility]) SACROILIAC JOINT INJECTION 06-01-13 Right SACROILIAC JOINT INJECTION 11/02/2013 Bilat TONSILLECTOMY UNLISTED PROCEDURE ARTHROSCOPY Immunizations: Influenza: Up-to-date Pneumoccocal: Up-to-date; approximate date: per patient Allergies Allergen Reactions Dilantin [Phenytoin] Diarrhea and Other (See Comments) h/a Neurontin [Gabapentin] Visual Disturbance and Other (See Comments) Loss of memory, headache Loss of memory, headache Loss of memory, headache (Not in a hospital admission) Family History Problem Relation Age of Onset Cancer Mother Diabetes type II Mother Cancer Father Diabetes type II Father Social History Social History Marital status: [...] Social History Narrative No narrative on file PHYSICAL EXAM BP (!) 177/105 (BP Location: Left upper arm) | Pulse 76 | Temp 98.1 F (36.7 C) (Oral) | Resp 18 | Wt 67.6 kg (149 lb) | SpO2 99% | BMI 24.05 kg/m General Appearance: Alert, cooperative, no distress, appears stated age Head: Normocephalic, without obvious abnormality, atraumatic Eyes: PERRL, conjunctiva/corneas clear, EOM's intact, Ears: Normal external ear canals, both ears Nose: Nares normal, septum midline, mucosa normal, no drainage or sinus tenderness Throat: Lips, mucosa, and tongue normal; teeth and gums normal Neck: Supple, symmetrical, trachea midline, no adenopathy; thyroid: No enlargement/tenderness/nodules; no carotid bruit or JVD Back: Symmetric, no curvature, complains of pain on touching lumbar area Lungs: Clear to auscultation bilaterally, respirations unlabored Chest wall: No tenderness or deformity Heart: Regular rate and rhythm, S1 and S2 normal, grade 4/6 murmur heardbest at apex, no rub or gallop Abdomen: Soft, non-tender, bowel sounds active all four quadrants, no masses, no organomegaly Extremities: Extremities normal, atraumatic, no cyanosis or edema Pulses: 2+ and symmetric all extremities Skin: Skin color, texture, turgor normal, no rashes or lesions Lymph nodes: Cervical, supraclavicular, and axillary nodes normal Neurologic: CNII-XII intact. Normal strength, sensation and reflexes throughout DATA CBC: Lab Results Component Value Date WBC 4.66 06/29/2018 RBC 5.65 06/29/2018 HGB 16.2 06/29/2018 HCT 47.9 06/29/2018 MCV 84.8 06/29/2018 MCH 28.7 06/29/2018 MCHC 33.9 06/29/2018 RDW 39.8 06/29/2018 PLT 164 06/29/2018 MPV 8.3 06/29/2018 DIFFTYPE AUTOMATED 06/29/2018 CMP: Lab Results Component Value Date NA 146 (H) 06/29/2018 K 3.9 06/29/2018 CL 108 06/29/2018 CO2 26 06/29/2018 ANIONGAP 16 06/29/2018 GLUF 106 (H) 06/29/2018 BUN 21 06/29/2018 CREATININE 1.10 06/29/2018 BCR 19 06/29/2018 CA 9.6 06/29/2018 PROT 7.3 06/29/2018 ALB 5.0 06/29/2018 GLOB 2.3 06/29/2018 BILITOT 1.0 06/29/2018 ALP 93 06/29/2018 AST 20 06/29/2018 ALT 16 06/29/2018 EGFR >60 06/29/2018 Calcium: No results found for: CALCIUM Magnesium: No results found for: MG Phosphorus: No results found for: PHOS PT/INR: Lab Results Component Value Date INR 1.1 03/12/2013 PTT: Lab Results Component Value Date APTT 27 03/12/2013 [APTT} Troponin: Lab Results Component Value Date TROPONINI <0.02 01/30/2011 Last 3 Troponin: Lab Results Component Value Date TROPONINI <0.02 01/30/2011 CPK: No results found for: CKTOTAL CKMB: No results found for: CKMB U/A: Lab Results Component Value Date COLORU YELLOW 01/30/2011 CLARITYU CLEAR 01/30/2011 NITRITE NEGATIVE 01/30/2011 UROBILINOGEN 2.0 (H) 01/30/2011 UPRO NEGATIVE 01/30/2011 PHUR 7.0 01/30/2011 BILIRUBINUR NEGATIVE 01/30/2011 EPIS 0-2 01/30/2011 Ct L-spine Without Contrast Result Date: 06/29/2018 *No acute fracture of the lumbar spine. *Mild lumbar spondylosis. *Small (2 mm) nonobstruct wilmer bilateral renal stones. Signed by: Med Armstrong Sign Date/Time: 06/29/2018 2:47 PM Xr Chest Ap Portable Result Date: 06/29/2018 Negative chest. 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 ASSESSMENT & PLAN Patient Active Hospital Problem List: Precordial pain (06/29/2018) Assessment: Which the patient has had since at least August 2017 off and on Plan: observe in CDU, continue serial cardiac enzymes stress test if negative, Lovenox fo r deep vein thrombosis prophylaxis, Back pain, lumbosacral/ DDD (degenerative disc disease), lumbar/Gait instability (03/13/20 12) Assessment: Worse after the fall Plan: We will continue with fentanyl that is being given in the Emergency Department, [place] axin 500 q6 hours as well as lidocaine patches to the back, have ordered MRI of the lumbar s pine again. OT PT consult Seizures (03/13/2012) Assessment: Patient's history as related by to the nurse and a history that has b een given Dr. Ruby Diane office do not appear to be congruent, as well the patient stated h e was on Depakote but is a product acid level was 0 Plan: We will continue with Depakote for now, I have consulted Dr. Goss of neurology who recommended doing a 6 hour EEG, will also have MRI of the brain given the patient's history of HIV, I have asked for medical records from Dr. Erlin Singh at [facility] to be sent over. Human immunodeficiency virus (HIV) disease (03/13/2012) Assessment: Chronic sees Dr. Calvo Plan: Continue with his present HIV medications, Dr. Calvo said that he will be out tomorr ow but he will drop a note in Epic and if needed Dr Gwen Vuong who is [facility] can b e consulted. Essential hypertension, benign (03/13/2012) Assessment: With elevations from the pain Plan: Patient can continue with Micardis HCT 80/12.5 daily hydralazine 10 mg IV every 6 h ours prn for blood pressure 180 mmHg because of the patient's history of VSD and the chest p ain I have asked for the patient's last office visit as well as echocardiogram from the [facility] re listing [employer] [facility] at [facility] internal medicine clinic to be sent over to. 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 300 mg in p.m. I explained radiology and lab findings, plan of care and management to patient and relativ es at bedside, told them somebody else from the hospitalist service will see patient later. Patient and relatives verbalized understanding and agreement with plan of care and did not h ave any more questions for me after my interaction with them. More than 70 minutes spent on admitting this patient face to face at bedside, taking history and physical examination, mor e than 65% of this spent on explaining plan of care to patient and relatives at bedside, hammad rt review,formulating a plan and placing orders coordinating care with other providers well as Computerized Mixer Driver. Other recommendations for management of this patient will be d ependent upon the patient's clinical course. Discharge plans when stable and improved in 24 to 48 hours. Disposition: Observe in CDU Dictation software, NetMovies, used which may contain error for similar sounding words even af ter review. Personal communication requested for any clarification. Portions of this chart may have been copied from previous notes for continuity of care. Disposition: Likely home Code Status: DNR/DNI Primary Care Physician: JIMENEZ French MD 06/29/2018 documented in this encounter Procedure Notes Conversion Transaction, Provider Unknown - 07/01/2018 1:12 PM PSTFormatting of this note m ight be different from the original. Procedures by Brenda Marti at 07/01/18 1312 Author: Brenda Marti Service: Neurology Author Type: corporate safety coordinator Filed: 07/01/18 8888 Date of Service: 07/01/181311 Status: Signed Global Marketing Manager: Brenda Marti (corporate safety coordinator) [facility] Neurodiagnostic Dept [address] [place] [address] Patient: Ivan Giles ID: [id number] : 1965 Age: 52 Gender: male Room: 308 Physician: Scott Goss Thermocouple Tester: Brenda Marti Ref. Physician: Iesha French MD Recording Date: 06/30/2018 Duration: 08:16:02 Medications: depakote History: pseudoseizures which had been diagnosed by Dr. Kern At [facility], the patient does attention of seizures, and according the patient about 6 m onths back he would have seizures almost everyday to weekly all kinds of seizures grand mal' s TAKES AN AFTER HE STARTED TAKING THE DEPAKOTE HE ONLY HAS THEM 1-2 TIMES A WEEK General Description: This was a 19 channel awake and drowsy prolonged EEG recording with I nternational 10/20 electrode placements. The background activity consisted of symmetrical an d low amplitude 8-10 Hz alpha frequency. These activities were symmetrical. Activation Procedures: Photic stimulation produced no significant changes to the backgroun d activity. Sleep Patterns: The drowsy portion of the record was characterized by attenuation of the b ackground activity with the presence of low amplitude activity seen diffusely. Impression: This EEG is normal. No focal, diffuse or generalized abnormalities were noted . Approximately 1/3 of the study could not be interpreted due to excessive artifact. During the initial and final part of the recording, his scalp electrodes fell off compromising inte rpretability. Erich Frazier ARNP - 06/30/2018 9:08 AM PST Procedures by LEIA Hsieh at 06/30/18907 Author: LEIA Hsieh Service: Radiology Author Type: Advanced Registered Nurse Michelle ronquillo Filed: 06/30/1810 Date of Service: 02/14/19 0908 Status: Signed Global Marketing Manager: LEIA Hsieh (Advanced Registered Nurse Practitioner) Pre-procedure Diagnoses: 1. Chest pain, unspecified type [R07.9] Post-procedure Diagnoses: 1. Chest pain, unspecified type [R07.9] Procedures: 1. NM MYOCARDIAL PERFUSION SPECT - STRESS AND REST [FZL780 (Custom)] [facility] Service: Diagnostic Imaging/Nuclear Medicine Cardiac Stress Test Note Type of Stress Test performed (protocol): Pharmacologic stress test Martin protocol time (if applicable): N/A Rhythm changes: None Ectopy: None Symptoms experienced during exam: None ST/T wave changes: None Medications administered: Lexiscan 0.4 mg Wilks Treadmill Score: N/A Comments: None documented in this encounter Consult Notes Jacob Bose MD - 07/02/2018 2:12 PM PSTFormatting of this note might be different f rom the original. Consult* by Jacob Bose MD at 07/02/18 1412 Author: Jacob Bose MD Service: Otolaryngology Author Type: Physician Filed: 07/02/18 1437 Date of Service: 07/02/18 1412 Status: Signed Global Marketing Manager: Jacob Bose MD (Physician) [facility] Service: Otolaryngology Initial Consult Note Date of Admission: 06/29/2018 Reason for Consultation: Stridor Requesting Physician: Jose Villarreal MD, Hospitalist History Obtained From: Chart review, patient CHIEF COMPLAINT: Shortness of breath HISTORY OF PRESENT ILLNESS Copied from note by Jose Villarreal: 52-year-old male with history of HIV, treated hepatitis C and B followed by Dr. Calvo as an outpatient, history of lumbar degenerative disc disease, seizure/pseudoseizure but has not taken his Depakote for 5 years until a few days prior to t his admission when he established care with a new primary care physician who had an accident al fall at home and presented with acute low back pain. Also reports of of multiple seizures every week. He denied any saddle paresthesia, no bladder or bowel incontinence. While in e emergency room, the patient also complained of left-sided chest pain. Subsequently, he was admitted for further workup. Telemetry has been unremarkable. Serial troponins were negativ e. Cardiac stress test showed no evidence of ischemia or infarct with normal LV wall motion. LV ejection fraction 60 percent at rest and 56 percent stress. CAT scan of the lumbar spine showed no acute fracture with mild lumbar spondylosis and 2 mm nonobstructive bilateral hernando al stones. Furthermore, MRI of the lumbar spine showed small left foraminal annular fissure and disc protrusion L4-L5 contacting the left L4 nerve root. Possible impingement of the lef t L4 nerve root. Posterior central annular fissure and disc protrusion at L5-S1. Annular fis sure can cause discogenic pain. This was reviewed with neurosurgeon case monitor, Dr. Salas who recommended pain control at this time. No surgical intervention indicated. Patient was also evaluated by neurology, Dr. Goss who recommended 6 hour EEG. Fortunately, when this was st arted, the patient had an episode of anxiety and pulled out all the wires. The test needed t o be restarted. Recent Events: 07/01/2018 Today, a RAT was called. Patient had an episode of severe shortness of breath associated with oxygen laceration down to the low 90s, respiratory distress and wheezing. I attended the RAT. Stat laboratories and imaging were ordered. Eventually he became more stab le. ABG came back unremarkable. Chest x-ray showed atelectasis. BNP, Propulsid done in, lact ic acid are all normal. A CT of the neck was obtained because of upper airway stridor. Thi s showed: 1. There is mild mucosal edema of the nasopharynx and adenoids with mild narrowing of the nasopharyngeal and oropharyngeal airways. The vocal cords appear closed. The trachea and larynx appear patent. There is no evidence of focal associated mass. There is no significant lymphadenopathy. 2. There is continued moderate to marked opacification the mastoid air cells that is stable from the prior MRI. There is thickening of the tympanic membranes bilaterally. This may represent mastoiditis. There is no evident complication. 3. [id number] S-type curvature of the cervical and upper thoracic spine is fairly stable from the prior MRI. There is slight progression of degenerative spondylosis with multilevel mild appearing canal stenosis and moderate foraminal stenosis. Signed by: MD Stone Kenneth Sign Date/Time: 07/02/2018 12:37 PM Because of the concern for upper airway obstruction and stridor, medicine has requested ENT consultation for evaluation of the upper airway. REVIEW OF SYSTEMS Review of Systems Constitutional: Negative. HENT: Negative for drooling, ear pain, mouth sores, postnasal drip, sore throat, trouble sw allowing and voice change. Eyes: Negative. Respiratory: Positive for shortness of breath. Negative for stridor. Cardiovascular: Negative. Gastrointestinal: Negative. Endocrine: Negative. Genitourinary: Negative. Musculoskeletal: Positive for back pain. Negative for neck pain and neck stiffness. Allergic/Immunologic: Negative. Neurological: Positive for seizures. Negative for speech difficulty. Hematological: Negative. Psychiatric/Behavioral: Negative. Past Medical History Diagnosis Date Asthma Hepatitis B 01/25/14 Hepatitis C 2001 HIV infection (HCC) 1988 Hypertension IBS (irritable bowel syndrome) Joint pain Neuromuscular disorder (HCC) Other chronic pain back pain Precordial pain 06/29/2018 Seizures (HCC) Past Surgical History Procedure Laterality Date CAUDAL BLOCK 05-27-12 Caudal w/ cath target Bilat L5, S1 CAUDAL BLOCK 07-05-12 Caudal w/ cath target Bilat L5, S1 CHOLECYSTECTOMY EPIDURAL STEROID INJECTION 01-25-2014 caudal w/cath target Right L5,S1 HERNIA REPAIR hiatal LUMBAR EPIDURAL INJECTION 03-15-12 Bilat L5 TFESI (at [facility]) SACROILIAC JOINT INJECTION 06-01-13 Right SACROILIAC JOINT INJECTION 11/02/2013 Bilat TONSILLECTOMY UNLISTED PROCEDURE ARTHROSCOPY Allergies Allergen Reactions Dilantin [Phenytoin] Diarrhea and Other (See Comments) h/a Neurontin [Gabapentin] Visual Disturbance and Other (See Comments) Loss of memory, headache Loss of memory, headache Loss of memory, headache Ritonavir Other (See Comments) Facility-Administered Medications Prior to Admission Medication Dose Route Frequency Provider Last Rate Last Dose [DISCONTINUED] sodium chloride 0.9 % flush 10 mL 10 mL Intravenous PRN Skyler dodd MD 10 mL at 01/25/14 1027 [DISCONTINUED] sodium chloride 0.9 % flush 10 mL 10 mL Intravenous PRN Skyler dodd MD Prescriptions Prior to Admission Medication Sig Dispense Refill Last Dose dexlansoprazole (DEXILANT) 60 MG capsule Take 60 mg by mouth every morning before break fast. 06/28/2018 at Unknown time DIPHENOXYLATE-ATROPINE PO Take 1 tablet by mouth 4 (four) times daily. PRN divalproex (DEPAKOTE) 250 MG 24 hr tablet Take 500 mg by mouth 2 (two) times daily. dolutegravir sodium (TIVICAY) 50 MG tablet Take 100 mg by mouth daily. 06/28/2018 at U nknown time emtricitabine-tenofovir DF (TRUVADA) 200-300 MG per tablet Take 1 tablet by mouth daily . 06/28/2018 fluticasone furoate-vilanterol (BREO ELLIPTA) 100-25 mcg/inh inhaler Inhale 1 puff into the lungs daily. 06/28/2018 hydrOXYzine (ATARAX) 25 MG tablet Take 25 mg by mouth 3 (three) times daily as needed f or Itching. PRN loperamide (ANTI-DIARRHEAL) 2 MG capsule Take 2 mg by mouth 4 (four) times daily as nee ded. Past Week at Unknown time loratadine (CLARITIN) 10 MG tablet Take 10 mg by mouth daily as needed. prn at Unknow n time pregabalin (LYRICA) 150 MG capsule Take 150 mg by mouth 2 (two) times daily. 019 at Unknown time sumatriptan (IMITREX) 100 MG tablet Take 100 mg by mouth as needed for Migraine. May re peat dose in 2 hours if no relief. Do not exceed 2 doses in 24 hours. PRN telmisartan-hydrochlorothiazide (MICARDIS HCT) 80-12.5 MG per tablet Take 1 tablet by m outh daily. 06/28/2018 trazodone (DESYREL) 100 MG tablet Take 100 mg by mouth nightly. 3 weeks ago at Unkn own time Scheduled Medications budesonide-formoterol 2 puff Inhalation 2 times daily diphenhydrAMINE 50 mg Intravenous Once divalproex 500 mg Oral BID dolutegravir sodium 100 mg Oral Daily emtricitabine-tenofovir DF 1 tablet Oral Daily enoxaparin 40 mg Subcutaneous Q24H ipratropium-albuterol 3 mL Nebulization Q4H WA lidocaine 2 patch Transdermal Daily methocarbamol 500 mg Oral 4x Daily pantoprazole 40 mg Oral QAM AC pregabalin 150 mg Oral QAM pregabalin 300 mg Oral Nightly sodium chloride 10 mL Intravenous Q8H traZODone 100 mg Oral Nightly Continuous Infusions sodium chloride 75 mL/hr at 07/02/18 0751 PRN Medications acetaminophen OR acetaminophen, diphenoxylate-atropine, fentaNYL, hydrALAZINE, loratadi ne, LORazepam, ondansetron OR ondansetron, polyethylene glycol, regadenoson, sumatriptan Family History Problem Relation Age of Onset Cancer Mother Diabetes type II Mother Cancer Father Diabetes type II Father Social History Social History Marital status: [...] History Narrative No narrative on file History Smoking Status Never Smoker Smokeless Tobacco Never Used History Alcohol Use No History Drug Use No Comment: not for 19 years History Sexual Activity Sexual activity: Not on file PHYSICAL EXAM Vital Signs: BP 142/70 (BP Location: Right upper arm) | Pulse 89 | Temp 98.3 F (36.8 C) (Oral) | Resp 16 | Ht 1.676 m (5' 6") | Wt 70.2 kg (154 lb 12.2 oz) | SpO2 98% | BMI 24.98 kg/m Temp: [97.9 F (36.6 C)-98.3 F (36.8 C)] 98.3 F (36.8 C) (07/02 1042) BP: (110-167)/(63-89) 142/70 (07/02 1042) Heart Rate: [66-91] 89 (07/02 1053) Resp: [16-20] 16 (07/02 1053) SpO2: [91 %-98 %] 98 % (07/02 1053) Weight: [70.2 kg (154 lb 12.2 oz)] 70.2 kg (154 lb 12.2 oz) (07/02 0335) Physical Exam Constitutional: He appears well-developed and well-nourished. He is cooperative. HENT: Right Ear: External ear normal. Left Ear: External ear normal. Nose: Septal deviation present. Cerumen obstructing ear canal AU Severe septal deviation to the right. No obvious perforation identified. Nasopharynx visualized with a fiberoptic scope. Moderately enlarged adenoid / lymphoid tis briseyda in the midline nasopharynx. No masses that appear suspicious. Eyes: Pupils are equal, round, and reactive to light. Conjunctivae, EOM and lids are normal . Neck: Trachea normal. Neck supple. No tracheal tenderness present. Carotid bruit is not pre sent. No tracheal deviation present. No thyromegaly present. Cardiovascular: Regular rhythm. Pulmonary/Chest: Effort normal and breath sounds normal. No stridor. No respiratory distres s. Lymphadenopathy: Head (right side): No submental, no submandibular, no tonsillar, no preauricular, no p osterior auricular and no occipital adenopathy present. Head (left side): No submental, no submandibular, no tonsillar, no preauricular, no po sterior auricular and no occipital adenopathy present. He has no cervical adenopathy. Right cervical: No superficial cervical, no deep cervical and no posterior cervical ad enopathy present. Left cervical: No superficial cervical, no deep cervical and no posterior cervical ginette nopathy present. Neurological: He is alert. Vitals reviewed. Fiberoptic Laryngoscopy: I discussed the indications for endoscopy with the patient and he was okay with me performing the endoscopy. The scope was passed through the left nostril b ecause of the severe nasoseptal deviation on the right. The nasopharynx had an enlarged ginette noid pad / lymphoid tissue in the midline superior nasopharyngeal space. No ulceration, gra nulation or papillary changes were noted. The oropharynx was normal including the vallecula , the base of otis and posterior pharyngeal wall. The epiglottis was normal, the arytenoid s, false cords, ventricles, true vocal folds, subglottis, pyriform sinuses and posterior wil ttis appeared normal. No masses were noted. The vocal cords were mobile and had no masses or lesions noted. DATA: 1. There is mild mucosal edema of the nasopharynx and adenoids with mild narrowing of the nasopharyngeal and oropharyngeal airways. The vocal cords appear closed. The trachea and larynx appear patent. There is no evidence of focal associated mass. There is no significant lymphadenopathy. 2. There is continued moderate to marked opacification the mastoid air cells that is stable from the prior MRI. There is thickening of the tympanic membranes bilaterally. This may represent mastoiditis. There is no evident complication. 3. [id number] S-type curvature of the cervical and upper thoracic spine is fairly stable from the prior MRI. There is slight progression of degenerative spondylosis with multilevel mild appearing canal stenosis and moderate foraminal stenosis. 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 The patient had no shortness of breath or stridor on examination this afternoon. Nasopharyngeal Mass: He has lymphoid tissue in the nasopharynx that is likely simply lymph oid hyperplasia. I would suggest biopsy of this in an outpatient setting. The patient was instructed to follow up with my office once he is discharged and we can do this in the offic e. Please given him our contact information on discharge. Code Status: DNR/DNI Primary Care Physician: JIMENEZ CALVO Thank you for this consult. Please give the patient our contact information on discharge f or further evaluation of the nasopharyngeal lymphoid tissue. JACOB BOSE MD 07/02/2018 Scott Patel MD - 06/30/2018 3:50 PM PST . Consults by Scott Goss MD at 06/30/18 6040 Author: Scott Goss MD Service: Neurology Author Type: Physician Filed: 07/02/18 1138 Date of Service: 06/30/18 1550 Status: Signed Global Marketing Manager: Scott Goss MD (Physician) Consult Orders: 1. Inpatient consult to Neurology [[id number]] ordered by Iesha French MD at 1830 Inpatient consult to Neurology Consult performed by: SCOTT GOSS Consult ordered by: IESHA FRENCH Reason for consult: Possible seizures. Assessment/Recommendations: [facility] Service: Neurology Initial Consult Note Date of Admission: 06/29/2018 Reason for Consultation: Possible seizures. Requesting Physician: Dr. French, Hospitalist History Obtained From: patient, chart review CHIEF COMPLAINT: Back pain. HISTORY OF PRESENT ILLNESS This patient is a 52 y.o. male with significant past medical history of HIV, hepatitis, PTS D, bipolar disorder, and pseudoseizures who presented to [facility] ED after he experienced a fall . He reports that he was walking to his refrigerator when his left leg suddenly gave out res ulting in a fall and worsening back pain. He denies any weakness or numbness in the lower ex tremities since the fall. He denies any bowel or bladder dysfunction or incontinence. While in the ED, the patient experienced chest pain and seizure like activity lasting for ~ 30 sec onds. The patient has no recollection of this possible seizure. Chart notes indicate that he was somnolent after the episode. The patient reports a history of pseudoseizures precipitat ed by stress and anxiety. He was unable to provide information regarding his pseudoseizures as he became somnolent after he was given a medication for anxiety. Chart notes indicate a h istory of a few seizures each week which increased in frequency in the last 24 hours. Chart notes indicate that he was experiencing daily seizures until he was started on Depakote in t he past. He has not taken Depakote for ~ 5 years but re-started it recently after he establi shed care with a new PCP. Chart notes indicate that he re-started the Depakote ~ 3 days ago. Chart notes indicate that he was diagnosed with pseudoseizures by Dr. Kern at the [facility] epilepsy and stroke center after he underwent an extensive workup. Chart noted also indica te a history of lumbar degenerative disc disease for which he received steroids in the past (Dr. Dong). REVIEW OF SYSTEMS I reviewed the General, eyes, ENT, CV, respiratory, GI, , MS, Derm, Neurological, psychia tric, endo, heme and allergy systems. Pertinent positives include back pain, chest pain, and possible seizure as per HPI. Past Medical History No date: Asthma 01/25/14: Hepatitis B No date: Hepatitis C Comment: 2001 No date: HIV infection (HCC) Comment: 1988 No date: Hypertension No date: IBS (irritable bowel syndrome) No date: Joint pain No date: Neuromuscular disorder (HCC) No date: Other chronic pain Comment: back pain 06/29/2018: Precordial pain No date: Seizures (HCC) Past Surgical History 05-27-12: CAUDAL BLOCK Comment: Caudal w/ cath target Bilat L5, S1 07-05-12: CAUDAL BLOCK Comment: Caudal w/ cath target Bilat L5, S1 No date: CHOLECYSTECTOMY 01-25-2014: EPIDURAL STEROID INJECTION Comment: caudal w/cath target Right L5,S1 No date: HERNIA REPAIR Comment: hiatal 03-15-12: LUMBAR EPIDURAL INJECTION Comment: Bilat L5 TFESI (at [facility]) 06-01-13: SACROILIAC JOINT INJECTION Comment: Right 11/02/2013: SACROILIAC JOINT INJECTION Comment: Bilat No date: TONSILLECTOMY No date: UNLISTED PROCEDURE ARTHROSCOPY -- Dilantin (Phenytoin) -- Diarrhea and Other (See Comments) -- h/a -- Neurontin (Gabapentin) -- Visual Disturbance and Other (See Comments) -- Loss of memory, headache Loss of memory, headache Loss of memory, headache -- Ritonavir -- Other (See Comments) Facility-Administered Medications Prior to Admission: (DISCONTINUED) sodium chloride 0.9 % flush 10 mL, 10 mL, Intravenous, PRN, Skyler arellano MD, 10 mL at 01/25/14 1027 (DISCONTINUED) sodium chloride 0.9 % flush 10 mL, 10 mL, Intravenous, PRN, Skyler arellano MD Prescriptions Prior to Admission: dexlansoprazole (DEXILANT) 60 MG capsule, Take 60 mg by mouth every morning before breakfas t. , Disp: , Rfl: , 06/28/2018 at Unknown time DIPHENOXYLATE-ATROPINE PO, Take 1 tablet by mouth 4 (four) times daily., Disp: , Rfl: , PRN divalproex (DEPAKOTE) 250 MG 24 hr tablet, Take 500 mg by mouth 2 (two) times daily., Disp: , Rfl: , 06/28/2018 dolutegravir sodium (TIVICAY) 50 MG tablet, Take 100 mg by mouth daily., Disp: , Rfl: , 2/1 06/2018 at Unknown time emtricitabine-tenofovir DF (TRUVADA) 200-300 MG per tablet, Take 1 tablet by mouth daily., Disp: , Rfl: , 06/28/2018 fluticasone furoate-vilanterol (BREO ELLIPTA) 100-25 mcg/inh inhaler, Inhale 1 puff into th e lungs daily., Disp: , Rfl: , 06/28/2018 hydrOXYzine (ATARAX) 25 MG tablet, Take 25 mg by mouth 3 (three) times daily as needed for Itching., Disp: , Rfl: , PRN loperamide (ANTI-DIARRHEAL) 2 MG capsule, Take 2 mg by mouth 4 (four) times daily as needed ., Disp: , Rfl: , Past Week at Unknown time loratadine (CLARITIN) 10 MG tablet, Take 10 mg by mouth daily as needed., Disp: , Rfl: , pr n at Unknown time pregabalin (LYRICA) 150 MG capsule, Take 150 mg by mouth 2 (two) times daily. , Disp: , Rf l: , 06/28/2018 at Unknown time sumatriptan (IMITREX) 100 MG tablet, Take 100 mg by mouth as needed for Migraine. May repea t dose in 2 hours if no relief. Do not exceed 2 doses in 24 hours., Disp: , Rfl: , PRN telmisartan-hydrochlorothiazide (MICARDIS HCT) 80-12.5 MG per tablet, Take 1 tablet by mout h daily., Disp: , Rfl: , 06/28/2018 trazodone (DESYREL) 100 MG tablet, Take 100 mg by mouth nightly. , Disp: , Rfl: , 3 weeks ago at Unknown time Scheduled Medications budesonide-formoterol, 2 puff, Inhalation, 2 times daily divalproex, 500 mg, Oral, BID dolutegravir sodium, 100 mg, Oral, Daily emtricitabine-tenofovir DF, 1 tablet, Oral, Daily enoxaparin, 40 mg, Subcutaneous, Q24H lidocaine, 2 patch, Transdermal, Daily losartan-hydrochlorothiazide, 1 tablet, Oral, Daily methocarbamol, 500 mg, Oral, 4x Daily pantoprazole, 40 mg, Oral, QAM AC pregabalin, 150 mg, Oral, QAM pregabalin, 300 mg, Oral, Nightly sodium chloride, 10 mL, Intravenous, Q8H traZODone, 100 mg, Oral, Nightly Continuous Infusions PRN Medications acetaminophen OR acetaminophen, diphenoxylate-atropine, fentaNYL, hydrALAZINE, loratadi ne, LORazepam, ondansetron OR ondansetron, polyethylene glycol, regadenoson, sumatriptan Family History Problem: Cancer Relation: Mother Age of Onset: (Not Specified) Problem: Diabetes type II Relation: Mother Age of Onset: (Not Specified) Problem: Cancer Relation: Father Age of Onset: (Not Specified) Problem: Diabetes type II Relation: Father Age of Onset: (Not Specified) Smoking status: Never Smoker Smokeless tobacco: Never Used Alcohol use: No Drug use: No Comment: not for 19 years PHYSICAL EXAM Vital Signs: BP 126/78 (BP Location: Right upper arm) | Pulse 76 | Temp 98.9 F (37.2 C) (Oral) | Resp 20 | Ht 1.676 m (5' 6") | Wt 69.4 kg (153 lb) | SpO2 95% | BMI 24.69 kg/m Physical Exam General: well developed, well nourished, in no acute distress Head: normocephalic and atraumatic Eyes: PERRL/EOM intact; conjunctiva and sclera clear Mouth: no deformity Neck: Neck supple. No nuchal rigidity or meningeal signs. Psych: alert and cooperative; anxious/agitated mood and affect. Detailed Neurologic Exam Speech/Language: Speech is clear; fluent and spontaneous with normal comprehension. Naming and repetition intact. Cognition: The patient is oriented to person, place, and time. Cranial Nerves: The pupils are equal, round, and reactive to light. Visual powers are full to finger con frontation. Extraocular movements are intact. Trigeminal sensation is intact and the muscles of mastication are normal. The face is symmetric. Hearing is intact to finger rub bilateral ly.The palate elevates in the midline. Voice is normal. Shoulder shrug is normal. The tongue has normal motion without fasciculations. Coordination: Normal finger to nose and heel to koch. Observation: No asymmetry, no atrophy, and no involuntary movements noted. Tone: Normal muscle tone in all 4 extremities. Strength: Strength is V/V in the upper extremities. Strength is 4/5 in all the muscles tested in the lower extremities.(poor effort??) Reflex Exam: DTR's: Deep tendon reflexes in the upper and lower extremities are normal and symmetrical throu ghout with absent achilles reflexes. Toes: Plantar response mute bilaterally. Clonus: Clonus is absent. Gait: Did not assess due to somnolence. Light Touch: Normal light touch sensation in upper and lower extremities. Temperature: Normal temperature sensation in upper and lower extremities. DATA CBC: Lab Results Component Value Date WBC 3.72 (L) 07/01/2018 RBC 4.71 07/01/2018 HGB 13.8 07/01/2018 HCT 39.4 07/01/2018 MCV 83.6 07/01/2018 MCH 29.3 07/01/2018 MCHC 35.0 07/01/2018 RDW 40.3 07/01/2018 PLT 147 (L) 07/01/2018 MPV 8.0 07/01/2018 DIFFTYPE AUTOMATED 07/01/2018 CMP: Lab Results Component Value Date NA 144 07/01/2018 K 4.0 07/01/2018 CL 108 07/01/2018 CO2 27 07/01/2018 ANIONGAP 13 07/01/2018 GLUF 97 07/01/2018 BUN 24 07/01/2018 CREATININE 1.12 07/01/2018 BCR 17 07/01/2018 CA 8.2 (L) 07/01/2018 PROT 5.8 (L) 07/01/2018 ALB 4.0 07/01/2018 GLOB 1.8 07/01/2018 BILITOT 0.5 07/01/2018 ALP 74 07/01/2018 AST 16 07/01/2018 ALT 13 07/01/2018 EGFR 53 (L) 07/01/2018 Troponin: Lab Results Component Value Date TROPONINI <0.006 06/29/2018 Radiology Review: MRI head:He underwent an MRI of the brain without contrast on 06/29/2018. I personally reviewed this study which did not demonstrate any acute or significant intracra nial findings. No structural lesions are seen.The ventricles are normal in size and appearan ce. The flow voids on T2 indicate patency of the major intracranial vessels. 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 I did not witness any seizure like episodes during the consultation. The patient was zeus ble to provide any useful history. The prolonged EEG did not demonstrate any epileptiform di scharges. The MRI study of the brain did not demonstrate any acute or significant intracrani al findings.It is reasonable to continue the Depakote for now as I am unable to completely r ule out epileptic seizures. That said, given the precipitation of the episodes by stress and anxiety, non epileptic seizures remain higher in the differential for the etiology of these episodes. Furthermore, per chart notes, he underwent an extensive workup at the [facility] ilepsy clinic and was diagnosed with pseudoseizures. It is reasonable to refer him to the [facility] or [facility] epilepsy center for inpatient EEG yina toring again after discharge to determine if he also experiences epileptic seizures in addit ion to non-epileptic seizures. I discussed safety issues at length with the patient. He unde rstands to refrain from driving for now. A referral to a psychologist/Pschiatrist is indicat ed for extensive counseling given the history of pseudoseizures. He declined a referral at t his time stating that he does not believe in those types of doctors. Recommendations: 1) Continue Depakote at 500 mg BID for now. Check a trough level before discharge home. 2) He should be told at discharge not to drive a vehicle, swim, bathe alone, work on height s, operate machines or cook on open fire for 6 months from any event of LOC, altered awarene ss or loss of body control. 3) Referral to Psychiatry for treatment of anxiety and pseudoseizures. 4) Supportive care per primary team including DVT/GI prophylaxis. 5) Follow up with his PCP after discharge home. He should follow up with the neurologist he was given an appointment with in the past at discharge. This was discussed with Dr. Villarreal. Code Status: DNR/DNI Primary Care Physician: JIMENEZ CALVO Thank you for allowing me to participate in the care of this patient. I have discussed my recommendations with the attending physician. Please call if there are any additional questions. SCOTT GOSS MD 06/30/2018 hua, Jimenez Darden MD - 06/29/2018 6:15 PM PST Consult* by Jimenez Calvo MD at 06/29/181814 Author: Jimenez Calvo MD Service: Infectious Disease Author Type: Physician Filed: 06/29/181818 Date of Service: 06/29/181814 Status: Signed Global Marketing Manager: Jimenez Calvo MD (Physician) Name KYM GILES (52yo, M) ID# [id number] Appt. Date/Time 06/29/2018 01:40PM 1965 Service Dept. [facility] Provider JIMENEZ CALVO MD Insurance Med Primary[place] Insurance # : [id number] Med Secondary: [place] Insurance # : [id number] Med : [place] - PBB (MEDICARE) Insurance # : [id number] Med : [place]STIT[place]) Insurance # : [id number] Prescription: CMX - Member is eligible. details Chief Complaint None recorded. Patient's Care Team Primary Care Provider: LEIA BONE Patient's Pharmacies [facility] #[phone] ([place]): [address] [place] [address], , Fa x Vitals 06/29/2018 11:47 am Ht: 5 ft 6 in (167.64 cm) Allergies Allergies not reviewed (last reviewed 05/31/2018) DILANTIN MORPHINE NEURONTIN NORVIR Medications Medications not reviewed (last reviewed 05/31/2018) albuterol sulfate 2.5 mg/3 mL (0.083 %) solution for nebulization Inhale 3 mL 3 times a day by nebulization route as needed., start 05/31/2018 05/31/18 filled [facility] Ellipta 100 mcg-25 mcg/dose powder for inhalation Inhale 1 puff(s) every day by inhalation route. 05/31/18 filled [facility] divalproex ER 250 mg tablet,extended release 24 hr Take 2 tablet(s) twice a day by oral route. 05/31/18 filled [facility] DULoxetine 30 mg capsule,delayed release 1 PO QD 05/31/18 filled [facility] hydrOXYzine HCl 25 mg tablet Take 1 tablet(s) 3 times a day by oral route as needed. 06/16/18 filled [facility] loperamide-simethicone 2 tablets as needed for loose stool, not to exceed 4 tablets daily, start 05/31/2018 05/31/18 filled [facility] Lyrica 150 mg capsule Take 1 capsule(s) every day by oral route. 05/31/18 filled [facility] SUMAtriptan 100 mg tablet Take 1 tablet(s) as needed by oral route as needed. Internal Note: May repeat dose after 2 hours as needed, start 05/31/2018 05/31/18 filled [facility] [facility] telmisartan 80 mg-hydrochlorothiazide 12.5 mg tablet Take 1 tablet(s) every day by oral route. 05/31/18 filled [facility] Tivicay 50 mg tablet 1 PO BID 04/23/18 filled [facility] traZODone 100 mg tablet Take 1 tablet(s) twice a day by oral route at bedtime., start 05/31/2018 05/31/18 filled Gloria Fredo, [employer] Truvada 200 mg-300 mg tablet 1 PO QD 04/23/18 filled [facility] Vaccines None recorded. 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 - Onset: 05/31/2018 Mixed hyperlipidemia - Onset: 05/31/2018 Bipolar disorder - Onset: 05/31/2018 Chronic post-traumatic stress disorder - Onset: 05/31/2018 Seizure disorder - Onset: 05/31/2018 Malignant essential hypertension - Onset: 05/31/2018 Asthma - Onset: 05/31/2018 Chronic obstructive lung disease - Onset: 05/31/2018 Irritable bowel syndrome with diarrhea - Onset: 05/31/2018 Degeneration of cervical intervertebral disc - Onset: 05/31/2018 Degeneration of thoracic intervertebral disc - Onset: 05/31/2018 Degenerative lumbar spinal stenosis - Onset: 05/31/2018 Ventricular septal defect - Onset: 05/31/2018 Heart murmur - Onset: 05/31/2018 - most likely pulmonic stenosis Human immunodeficiency virus infection - Onset: 05/31/2018 History of alcohol abuse - Onset: 05/31/2018 - Sober 27 years, anniversary of sobriety in [place] History of heroin abuse - Onset: 05/31/2018 - Sober 27 years, anniversary of sobriety in [place] Past Medical History: PTSD/Bipolar disorder Heroin abuse HIV with neuropathy Pseudoseizures Bipolar disorder Hypertension Mixed hyperlipidemia VSD Chronic Hep B/Hep C Diarrhea-predominant IBS Lumbar spinal stenosis Past Surgical History: Cholecystectomy Right elbow surgery Family History Family History not reviewed (last reviewed 05/31/2018) Mother - Hematoma - on the skull - Alcohol abuse Father - Malignant tumor of lung Unspecified Relation - Diabetes mellitus - Great Grandmother - Malignant neoplastic disease - Great Grandmother Social History Social History not reviewed (last reviewed 05/31/2018) Smoking Status: Never smoker Surgical History Surgical History not reviewed (last reviewed 05/31/2018) Total elbow replacement - 05/17/1996 - Right. Past Medical History Past Medical History not reviewed (last reviewed 05/31/2018) Notes: Patient has been diagnosed with: 1. HIV 2. Hypertension 3. Pseudoseizures 4. Bipolar disorder 5. HX Drug Use Last [id number] 6. Chronic pain including Neuropathy 7. HCV 8. Chronic Hep B 9. IBS 10. VSD 11. Upper right lobe - heart mummer. HPI 52-year-old male with diagnosed HIV 38 years is been stable on Truvada and Tivicay. And pro blem with depression anxiety insomnia. Patient is allergy to aztreonam ritonavir and phenyto in Norvir. Patient uses marijuana. Patient is bipolar disorder. And seizure disorder. Betty turcios HIV viral load on April 20, 2017 is 423. CD4 count 562 1 April 20, 2017. Yana quiñones is cured of hepatitsi c by harvoni treatment and completed 2013. The patient has chonic diarrhea folowing [facility] will have fibrosure test to determine the sta ge of the liver post treatment the piatnet has heart murmur form chilhdhood noted to have be en stable and has on and off chest pain for the last one month ekg done nomral sinus rhythms following with Csrdiology for the chest pain the chest pain is stable. The patient work up done [facility] 09/07/17 cbc cmp normal cd4 count of 532 cmp normal fibrosure noted to have grade 0 stage 4 disease with cirrhosis hepatitsi A immune, hepatitis B needs booter will have hepatitis B vaccinaiton cholesterol normal and whole blo od T bnegative VZV positive HSV igm positie and HSV one positie IGG CMV positive hiv viral l oad load of 26,860 on 09/07/17 syphils negative. the patiet has been on on Tivicay and Truvada. following wiht GI for EGD and Colonosocpy fo llow-up here for the chronic diarrhea. he patient has stable chest pain will see Cardiology for the evaluation Neurology evaluatio n to be done cbcc cmp normal cd4 count of 500 on 11/22/17 HIV ival load negative Patient radha p done on January 24, 2018 CBC CMP ESR CRP within normal limits. We have CBC CMP CD4 count is IV viral load and lipid profile. Patient had been issues with pain will have pain specia list see patient as well and continue [facility] Tivicay and Truvada for now and have GI referral for the EGD and have hepatitsi B vaccinaiton Patient had 1 dose of hepatitis B. s/p influenza vaccine 03/2018- CBC, CMP, cD4 copunt 393 HIV viral load no detectable The patient fell down today and will go to the ER due to severe back pain He fell down hitting his back . ROS Additionally reports: General: The patient noted to have no problem of fever,with no weight loss and with No chills. Neurologic: With no headache,with no lightheadedness. No loss of consciousness or seizure. Cardiac: Denies Chest Pain, Palpitation, Dyspnea on Exertion Pulmonary: Denies cough, wheezing and hemoptysis GASTROINTESTINAL: With no nausea No vomiting,and with diarrhea. GENITOURINARY: Noted no dysuria, urgency, or frequency. Hematological : Denies any ecchymosis, bleeding or hematuria Endocrine: Denies any polyphagia, polyuria or hot and cold intolerance Musculoskeletal: new joint pain and swelling. Skin : Denies any new rashes or cutaneous changes. Rest of the review of systems is unremarkable. Physical Exam Patient is a 52-year-old male. Head: Normocephalic atraumatic HEENT: [place] palpebral conjunctivae. Anicteric sclerae. No tonsillopharyngeal congestion. Neck : Noted no Cervical Lymphadenopathy CHEST:Clear Breath Sounds Bilateral . HEART: Regular rate and rhythm. No murmurs thrills or rubs ABDOMEN: Soft, flat. No tenderness. No hepatosplenomegaly. GROIN AREA: Negative for intertrigo. EXTREMITIES: upper extremity no edema no edema Lower extremities no edema. Both Feet noted to have no edema. with direct tenderness on the back and low back with hip tenderness ROM NEUROLOGIC: No localizing signs. Skin : NO rash or ecchymosis. Assessment / Plan 1. Human immunodeficiency virus infection - continue with HAART B20: Human immunodeficiency virus [HIV] disease 2. Fall - will go the ER W19.XXXA: Unspecified fall, initial encounter 3. Chronic obstructive lung disease - stable J44.9: Chronic obstructive pulmonary disease, unspecified 4. Seizure disorder - stable G40.909: Epilepsy, unspecified, not intractable, without status epilepticus Patient Goals continue on truvada and tivicay and follow up in one month Return to Office to see Jimenez Calvo MD at [facility] on or around 06/29/2018 to see Jimenez Calvo MD at [facility] on or around 07/26/2018 Encounter Sign-Off Encounter signed-off by Jimenez Calvo MD, 06/29/2018. Encounter performed and documented by Jimenez Calvo MD Encounter reviewed & signed by Jimenez Calvo MD on 06/29/2018 at 11:57am onversion Transaction , Provider Unknown - 06/29/2018 2:45 PM PST Consults by Xuan Powell at 06/29/18 7558 Author: Xuan Powell Service: (none) Author Type: Coordinator Filed: 06/29/18 1443 Date of Service: 06/29/181444 Status: Signed Global Marketing Manager: Xuan Powell (Coordinator) Patient does NOT want to be in the Bloodless Program. He is open to [facility] . docume nted in this encounter ED Notes Conversion Transaction, Provider Unknown - 06/29/2018 1:47 PM PSTFormatting of this note m ight be different from the original. ED Notes by Kandi Cordova RN at 06/29/181346 Author: Kandi Cordova RN Service: Emergency Department Author Type: Registered Nurse Filed: 06/29/181346 Date of Service: 06/29/181346 Status: Signed Global Marketing Manager: Kandi Cordova RN (Registered Nurse) Dr. Reid at bedside Kandi Cordova RN 06/29/181346 onver martine Transaction, Provider Unknown - 06/29/2018 1:46 PM PST ED Notes by Kandi Cordova RN at 06/29/181345 Author: Kandi Cordova RN Service: Emergency Department Author Type: Registered Nurse Filed: 06/29/181346 Date of Service: 06/29/181345 Status: Signed Global Marketing Manager: Kandi Cordova RN (Registered Nurse) RN called into room by registation stating patient was having a seizure. When RN walked int o room patient was postictle sating at 85% room air and snoring could be heard. Patient was put on 2Liters O2 and o2 came up to 97%. notified at verbal order for 1mg put in. Kandi Cordova RN 06/29/181346 Ge Cueva DO - 06/29/2018 12:46 PM PSTFormatting of this note might be different f rom the original. ED Provider Notes by Ge Reid DO at 06/29/181245 Author: Ge Reid DO Service: (none) Author Type: Physician Filed: 06/29/182034 Date of Service: 06/29/181245 Status: Signed Global Marketing Manager: Ge Reid DO (Physician) [facility] Department of Emergency Medicine 12:46 PM History of Present Illness Patient Identification Ivan Giles is a 52 y.o. male. Patient information was obtained from patient. History/Exam limitations: none. Patient presented to the Emergency Department by: Car Chief Complaint Chief Complaint Patient presents with Fall worried he injured L1 and L2. Referral from Dr. Dong The patient presents to ED with complaints of back pain after fall. Onset of symptoms was t his morning, with a constant course since that time. The symptoms are described to be of mod erate severity. The patient describes the quality and location of the symptoms as the follow ing: back pain after fall. Patient reports he woke this morning and fell while walking to e refrigerator, landing directly on the lumbar region of his back. Patient has a history of spinal disc degeneration, caused by his HIV medications. He was diagnosed with the disease a t Dr. Dong's office (dolorology) via x-ray four years ago, and was told the disease was a ffecting his L3 vertebrae, which was causing multiple falls due to difficulty walking. He re ceived a steroid injection at that time, and did not have any problems for four years. Two m onths ago, he started having worsening back pain, and started having multiple falls again du e to decreased mobility in his legs. Patient went to Dr. Dong's office again a few weeks ago. The DE-C there ordered another x-ray, which showed the spinal disc degeneration disease was now affecting his L1. Besides HIV and spinal disc degeneration, patient has a history o f seizures, for which he takes Depakote. Patient reports that he has been off of his HIV med iations for a few years and only recently started taking them again. Patient reports he had blood work done one month ago, which showed that his CD4 count has dropped. His viral load is undetectable. Patient also complains of left hand numbness (resolved after one hour), jose ght loss (11 pounds), nausea, vomiting, abdominal pain, decreased mobility in his legs. Deana ent denies any other symptoms at this time. Care prior to arrival consisted of Trixaicin cre am, with minimal relief. PCP: JIMENEZ CALVO Past Medical History Diagnosis Date Asthma Hepatitis B 01/25/14 Hepatitis C 2002 HIV infection (HCC) 1988 Hypertension IBS (irritable bowel syndrome) Joint pain Neuromuscular disorder (HCC) Other chronic pain back pain Seizures (HCC) Past Surgical History Procedure Laterality Date CAUDAL BLOCK 05-27-12 Caudal w/ cath target Bilat L5, S1 CAUDAL BLOCK 07-05-12 Caudal w/ cath target Bilat L5, S1 CHOLECYSTECTOMY EPIDURAL STEROID INJECTION 01-25-2014 caudal w/cath target Right L5,S1 HERNIA REPAIR hiatal LUMBAR EPIDURAL INJECTION 03-15-12 Bilat L5 TFESI (at [facility]) SACROILIAC JOINT INJECTION 06-01-13 Right SACROILIAC JOINT INJECTION 11/02/2013 Bilat TONSILLECTOMY UNLISTED PROCEDURE ARTHROSCOPY Prior to Admission medications Medication Sig Start [...] 2 (two) times daily. Histori kash Provider Dolutegravir Sodium (TIVICAY PO) Take by mouth. Historical Provider duloxetine (CYMBALTA) 30 MG capsule Take 30 mg by mouth daily. Historical Provider Loperamide HCl (ANTI-DIARRHEAL PO) Take by mouth. Historical Provider loratadine (CLARITIN) 10 MG tablet Take 10 mg by mouth daily. Historical Provider LORazepam (ATIVAN) 1 MG tablet Take 1 mg by mouth every 6 (six) hours as needed. Histori kash Provider metoprolol (TOPROL XL) 25 MG 24 hr tablet Take 25 mg by mouth daily. Historical Provider naproxen (NAPROSYN) 500 MG tablet [...] [Phenytoin] Diarrhea and Other (See Comments) h/a Neurontin [Gabapentin] Visual Disturbance and Other (See Comments) Loss of memory, headache Loss of memory, headache Loss of memory, headache Social History Social History Marital status: Spouse [...] type II Father Review of Systems Constitutional: Positive for weight loss (11 pounds) Negative for fever, chills Eyes: Negative for vision changes Nose: Negative for congestion Throat: Negative for sore throat CV/Resp: Negative for chest pain, [id number], cough GI: Positive for nausea, vomiting, abdominal pain Negative for diarrhea : Negative for urinary problems Musculoskeletal: Positive for back pain after fall, decreased mobility in legs Negative for joint pain Skin: Negative for rash Neuro/Psych: Positive for left hand numbness (resolved after one hour) Negative for headache Endo/heme/Lymph: Negative for easy bruising All other systems reviewed and negative except as noted. Physical Exam BP (!) 168/99 (BP Location: Left upper arm) | Pulse 85 | Temp 98.2 F (36.8 C) (Tempor al) | Resp 20 | Wt 67.6 kg (149 lb) | SpO2 99% | BMI 24.05 kg/m Vital signs interpretation: hypertensive, otherwise WNL. Pulse Oximetry interpretation: Normal General: Alert, in moderate distress Eyes: Normal inspection ENT: MMM Neck: Normal inspection Cardiovascular: Rate and rhythm normal No murmurs Respiratory: Breath sounds normal bilaterally No rales, wheezing or rhonchi Abdomen: Soft, non-tender, non-distended No guarding or rebound Genitourinary: Deferred Rectal exam: Deferred Back: Tenderness to palpation from lower thoracic spine down to the lumbar region, there i s some fullness in lumbar spine Extremities: No edema. Motor is 5/5 throughout, sensation is intact Distal pulses intact Skin: Color normal Warm and dry No rash Neuro: Alert, no AMS. No gross motor/sensory deficits CN 2-12 intact Medical Decision Making and Emergency Department Course ED Department Course Patient presents to ED with complaints of back pain after fall. Will order labs, CT L-spin e, treat symptomatically, and reevaluate the patient. 1:33 PM JAZ Chau, reports patient had a seizure. Will give 1 mg Ativan. 1:46 PM Reevaluated patient. Patient is stable at this time. Patient's boyfriend describes the seizure as staring off into space for 30 seconds to a minute. Patient's boyfriend report s the patient is normally "out of it" for 30 seconds after a seizure, then becomes sleepy. P anjali's reports the patient normally has two to three seizures a week, but has had eight to ten in the last 24 hours. 2:02 PM CMP resulted showing elevated sodium at 146. CRP, ESR, and CBC are normal. Valproic acid resulted at less than 3. 2:[address] resulted showing no acute fracture of the lumbar spine. Mild lumbar spondylosis. Small (2 mm) nonobstructive bilateral renal stones. 3:38 PM dental tech reports patient is now complaining of chest pain. Will add on troponin and EKG. 4:22 PM CXR resulted showing negative chest. 4:23 PM POC cardiac troponin resulted negative. 5:15 PM Discussed patient's case with Dr. Wagner, hospitalist, who accepts the patient for admission. Patient and his family members are agreeable with plan for admission. Records Reviewed Old medical records. Nursing notes. Previous ED visits for similar and unrelated complaints. Laboratory Evaluation Results Procedure Component Value Ref Range Date/Time POC cardiac troponin [[id number]] Collected: 06/29/18 1608 Order Status: Completed Updated: 06/29/18 1623 POC CARDIAC TROPONIN 0.00 0.00 - 0.10 ng/mL Comprehensive metabolic panel [[id number]] (Abnormal) Collected: 06/29/18 1326 Order Status: Completed Specimen: Blood Updated: 06/29/18 1357 SODIUM 146 (H) 135 - 145 mmol/L POTASSIUM 3.9 3.5 - 4.9 mmol/L CHLORIDE 108 99 - 109 mmol/L CO2 26 23 - 32 mmol/L ANION GAP AGAP 16 5 - 20 mmol/L GLUCOSE 106 (H) 65 - 99 mg/dL BUN 21 8 - 25 mg/dL CREATININE 1.10 0.70 - 1.30 mg/dL BUN/CREAT 19 CALCIUM 9.6 8.5 - 10.5 mg/dL TOTAL PROTEIN 7.3 6.3 - 8.2 g/dL Albumin 5.0 3.6 - 5.0 g/dL GLOBULIN 2.3 1.3 - 4.9 g/dL A/G 2.2 1.0 - 2.4 TBIL 1.0 0.1 - 1.5 mg/dL ALK PHOS 93 35 - 115 U/L AST 20 10 - 45 U/L ALT 16 10 - 65 U/L EGFR >60 >60 mL/min/1.73m2 C-Reactive Protein [[id number]] Collected: 06/29/18 1326 Order Status: Completed Specimen: Blood Updated: 06/29/18 1357 CRP <0.4 <0.5 mg/dL Valproic Acid (Depakote/Depakene) Level [[id number]] (Abnormal) Collected: 06/29/18 132 6 Order Status: Completed Specimen: Blood Updated: 06/29/18 1357 DATE OF LAST DOSE UNKNOWN TIME OF LAST DOSE UNKNOWN VALPROIC ACID LEVEL <3 (L) 50 - 100 ug/mL Sedimentation Rate (ESR) [[id number]] Collected: 06/29/18 1326 Order Status: Completed Specimen: Blood Updated: 06/29/18 1345 ESR 4 0 - 20 mm/Hr CBC with differential [[id number]] (Abnormal) Collected: 06/29/18 1326 Order Status: Completed Specimen: Blood Updated: 06/29/18 1340 WBC 4.66 3.80 - 11.00 K/uL RBC 5.65 4.20 - 5.70 M/uL HGB 16.2 13.2 - 17.0 g/dL HCT 47.9 39.0 - 50.0 % MCV 84.8 80.0 - 100.0 fl MCH 28.7 27.0 - 34.0 pg MCHC 33.9 32.0 - 35.5 g/dL RDW SD 39.8 37 - 53 fl PLT 164 150 - 400 K/uL MPV 8.3 fl DIFF TYPE AUTOMATED NEUTROPHILS 74.18 % LYMPHOCYTES 12.59 % MONOCYTES 12.87 % EOSINOPHILS 0.09 % BASOPHILS 0.27 % NEUTROPHILS ABS 3.46 1.90 - 7.40 K/uL LYMPHOCYTES ABS 0.59 (L) 1.00 - 3.90 K/uL MONOCYTES ABS 0.60 0.00 - 0.80 K/uL EOSINOPHILS ABS 0.00 0.00 - 0.50 K/uL BASOPHILS ABS 0.01 0.00 - 0.10 K/uL I personally reviewed the lab results and they have been posted to the chart. Pertinent po sitive and negative findings have been addressed appropriately. Radiology and EKG Evaluation Imaging Results XR chest AP portable (Final result) Result time 06/29/18 16:17:41 Final result by Srinivasan Curry MD (06/29/18 16:17:41) Impression: Negative chest. Signed by: Srinivasan Curry Sign Date/Time: 06/29/2018 4:14 PM Narrative: CHEST ONE VIEW CLINICAL INFORMATION: Chest pain COMPARISON: ROSA C ARM GUIDANCE (01/25/2014); ROSA C ARM GUIDANCE (11/02/2013); ROSA C ARM GUIDANCE (06/01/2013); FINDINGS: Heart, lungs and vessels normal. No pneumothorax, pleural effusion or adenopathy. No significant bone abnormality. CT L-Spine without contrast (Final result) Result time 06/29/18 14:50:47 Final result by Med Armstrong MD (06/29/18 14:50:47) Impression: *No acute fracture of the lumbar spine. *Mild lumbar spondylosis. *Small (2 mm) nonobstructive bilateral renal stones. Signed by: Med Armstrong Sign Date/Time: 06/29/2018 2:47 PM Narrative: CT LUMBAR SPINE WITHOUT CONTRAST CLINICAL INFORMATION: Back pain after fall. COMPARISON: MRI dated 02/09/2014. PROCEDURE: Thin section non-contrast axial sections through the lumbar spine. Sagittal and coronal reformations were obtained from the axial acquisition data. At least one of the following CT dose optimization techniques were used: Automated exposure control; Adjustment of mA and/or kV according to patient size; Use of iterative reconstruction technique. FINDINGS: Alignment: Mild straightening of lumbar lordosis. No listhesis Vertebrae: No acute fracture. Mild chronic anterior wedging of L1 vertebral body, similar to MR dated 02/09/2014. Lumbar Disc Levels: T12-L1: No spinal canal or neural foraminal stenosis. L1-L2: No spinal canal or neural foraminal stenosis pitted L2-L3: No spinal canal or neural foraminal stenosis. L3-L4: No spinal canal or neural foraminal stenosis. L4-L5: Mildly decreased intervertebral disc height. Mild diffuse disc bulge. Mild spinal canal and mild bilateral neural foraminal stenosis. L5-S1: Mild diffuse disc bulge. Small posterior central disc protrusion. Mild bilateral neural foraminal stenosis pitted Facets and Posterior Spinal Elements: No acute fracture. No pars defects. Paravertebral Soft Tissues: Mild aortic atherosclerosis. No aortic aneurysm. Small (2 mm) nonobstructive bilateral renal stones. The index stone in lower pole of the left kidney measuring approximately 2 mm, image 31/series 3. EKG @ 1556 Normal sinus rhythm at [address] changes concerning for acute ischemia Normal QRS, intervals, and QTc No previous EKG for comparison Interpreted by Ge Reid DO at time of service. ED Diagnoses Final diagnoses Seizures (HCC) Chest pain, unspecified type Fall, initial encounter Strain of lumbar region, initial encounter HIV (human immunodeficiency virus infection) (HCC) Disposition: ED Disposition ED Disposition Condition Comment Admit/Observation Bed request special needs: none Diagnosis?: Seizures, CP, Fall, Lumbar strain, HIV Follow-up Information Follow up With Specialties Details Why Contact Info Jimenez Calvo MD Infectious Diseases [address] [place] [id number] Dictation software, NetMov[employer], used which may contain error for similar sounding words even af ter review. Personal communication requested for any clarification. Procedures Additional Documentation Procedures Attending Provider Note: IGe DO personally performed the services descri bed in this documentation, as scribed by Pau Thompson in my presence, and it is both accurat e and complete. Chart Reviewed and Completed: 06/29/2018 6:01 PM Scribe: Sixto Faustin, scribing for and in the presence of Ge Reid DO. Signed by: Sixto Abarca 06/29/2018 6:01 PM Ge Reid DO 06/29/182034 onversion Transaction, Provider Unknown - 06/29/2018 12:39 PM PSTFormatting of this note might be diff erent from the original. ED Notes by Kandi Cordova RN at 06/29/18 1239 Author: Kandi Cordova RN Service: Emergency Department Author Type: Registered Nurse Filed: 06/29/18 1242 Date of Service: 06/29/18 1239 Status: Signed Global Marketing Manager: Kandi Cordova RN (Registered Nurse) Patient reports having injections 5 years ago for pain management of lower back pain. Patie nt reports today patient fell onto hardwood floors at home and states Lower back pain with s harp pains that radiate from lower back up to neck. Patient reports falling on right side an d states right sided hip pain and pain down to ankle. Patient reports nausea and vomiting du e to pain. Patient reports was seen at primary care today and referred here. Patient reports "the back pain came back about 2 months ago after another fall I had but after this fall th e pain is the worst it has been". Patient denies loss of bladder or bowel function. Patient reports " I cant seem to stop shaking either because of the pain". Kandi Cordova RN 06/29/18 124 docume nted in this encounter Miscellaneous Notes Plan of Care - Conversion Transaction, Provider Unknown - 07/02/2018 11:10 AM PST Plan of Care by Lynn Howell RN at 07/02/18 111 Author: Lynn Howell RN Service: (none) Author Type: Registered Nurse Filed: 07/02/18 111 Date of Service: 07/02/181109 Status: Signed Global Marketing Manager: Lynn Howell RN (Registered Nurse) Problem: Safety Goal: Patient will be injury free during hospitalization Assess and monitor vitals signs, neurological status including level of consciousness and o rientation. Assess patient's risk for falls and implement fall prevention plan of care and i nterventions per hospital policy. Ensure arm band on, uncluttered walking paths in room, adequate room lighting, call light a nd overbed table within reach, bed in low position, wheels locked, side rails up per policy, and non-skid footwear provided. Outcome: Progressing Vitals signs monitored with consciousness and orientation. Hallway free of clutter, wheels locked, and bed in lowest position. Overhead table within reach and side rails up per policy . Non skid-wear socks provided and lighting adequate to ensure safety. Patient asked to call when getting out of bed. Patient calls appropriately and is agreeable to plan. iscjanie albrecht - Conversion Transaction, Provider Unknown - 07/02/2018 10:57 AM PSTFormatting of th is note might be different from the original. Treatment Plan by SILVANA Galeas at 07/02/18 1056 Author: SILVANA Galeas Service: (none) Author Type: Occupational Therapist Filed: 07/02/18 9905 Date of Service: 07/02/18 1055 Status: Signed Global Marketing Manager: SILVANA Galeas (Occupational Therapist) OCCUPATIONAL THERAPY EVALUATION OT Received On: 07/02/18 Reason for Treatment: Other (comment) (back pain, falls, d/c planning ) Requires OT Follow Up: No OT Eval/Reassessment Date: 07/02/18 Assistance Required: 1 person Entry Level Electrician Needed: No Family/Caregiver Present: No Recommendation: Home with daytime assist Equipment Recommended: Tub transfer bench, Strategic Account Manager, Sock aid, Grab bars withing home Requires OT Follow Up: No OT Ready for Discharge: Yes Recommendation Comments Pt presents with decreased activity tolerance, safety awareness, balance and UB/LB strength . Despite ongoing deficits anticipate with progress/particpation in therapies, retrieval of recommended AE/DME and reported support within home; pt will have safe d/c plan home. Recomm end pt has daytime assist, specifically for when is not home. Plan Progress: Discontinue OT OT Frequency: Eval/consult only Care Duration (Days): 1 Days Requires OT Follow Up: No Summary Per RN ok to see pt, pt agreeable to session. Per chart review pt brought to [facility] on 06/29 d /t a fall in home and back pain, pt was unable to get up on own. RAT called 07/01, no new dev elopments or precautions, all imaging and testing has come back negative for abnormalaties. Session focus on ADLs with AE, functional transfers, and education. Extensive education give n on AE recommendations to increase pts safety. Pt BP remained stable throughout session. Pt seated at EOB having lunch with needs met at end of session. Precautions Other Precautions: fall risk Home Environment Type of Home: Home one story Home Exterior Layout: Entry steps none Home Interior Layout: Lives on main level with bedroom/bathroom Bathroom Shower/Tub: Tub/shower unit Bathroom Toilet: Standard Bathroom Equipment: Hand-held shower head Bathroom Accessibility: Not accessible Home Equipment: Walker 4 wheeled Additional Comments: landlord does not want to put grab bars in but pt has slipped in showe r and does not feel safe Prior Function Level of Bailey: Modified independent with functional mobility, Independent with ADL s, Assist with IADLs Falls in Past Year: Yes Lives With: Spouse Receives Help From: Friend(s) Employment: Retired for disability Leisure: Hobbies-no Comments: 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 ADL Where Eating Assessed: Edge of bed Equipment Provided: Strategic Account Manager, Sock aid Eating Assistance: Independent LE Dressing Assistance: Standby assist, Verbal instruction, Visual instruction Lower body dressing impacted by: Pain, Endurance, Safety concerns Functional Assistance: Minimal assist, Verbal instruction, Visual instruction, x 1 person ( FWW) Toileting transfer impacted by: Pain, Endurance, Safety concerns Additional Comments: Pt Qian for bed mobility. Pt able eugene ambulate with FWW and Girish for s teadying assist, 1 LOB occured during ambulation. Pt completed LE dressing with AE and . D emonstrates ability to get on/off toilet and says home set up is same Vision-Basic Assessment Current Vision: No visual deficits Cognition Overall Cognitive Status: Within Functional Limits Orientation Level: Oriented Oriented: x 4 Perception Inattention/Neglect: Appears intact Initiation: Appears intact Motor Planning: Appears intact Perseveration: Not present Proprioception Proprioception: No apparent deficit RUE Assessment: Within Functional Limits LUE Assessment: Within Functional Limits Hand Function Gross Grasp: Functional Functional Gross Grasp: Able to grasp objects without difficulty Coordination: Functional Assessment Assessment: Decreased UE ROM, Decreased UE strength, Decreased Safe judgement during ADL, D ecreased cognition, Decreased endurance, Decreased fine motor control, Decreased self-care t rans, Decreased high-level ADLs Prognosis: Good Goal Formulation: Patient Barriers to d/c at this time include: [] Home environment [] Family support [x] Equipment needs [] Cognitive deficits impacting functional independence [x] Physical deficits impacting functional independence [x] Self-care deficits impacting functional independence [] Other Pain The patient did not demonstrate any signs of symptoms of pain throughout OT session Education Completed: [x] Role of OT [x] Walker safety with ADLs and functional transfers [x] Fall prevention [x] Home modifications [x] Adaptive equipment training and recommendations [] Functional transfer training [x] Current level of assist and compensatory techniques for increased independence [x] Discharge recommendations for ADL/IADL participation [] Sternal Precautions during ADL [] Back Precautions during ADL [] Hip Precautions ADLs [] Upper extremity exercise program [] Other Completed with: [x] Patient [] Spouse [] Significant other [] Family [] C aregiver [] Other Completed by: [x] Verbal education [x] Demonstration [x] Handout [] Other: Response to Education: [x] Stated Understanding [x] Reinforcement necessary [] Returned demonstration [x] Demonstrated understanding [] No evidence of learning [] Refused Low - 04872 Moderate - 23993 High - 97491 History [x] Brief history including review of medical record [] Expanded review of medica l records; additional review of physical, cognitive, or psychosocial skills [] Review of tn dical records; extensive additional review of physical, cognitive, or psychosocial skills Examination [x] Identification of 1-3 performance deficits []Identification of 3-5 perfo rmance deficits [] Identification of 5 or more performance deficits Decision Making [] No comorbidities that affect occupational performance; modification of tasks or assistance is not needed to complete eval [x] May present with comorbidities; mini mal to moderate modification of tasks or assistance is needed to complete eval [] Presents with comorbidities; significant modification of tasks or assistance is needed to complete e gerber Clinical Decision Making Complexity: [x] Low 50121 [] Moderate 95576 [] High 47225 lan o f Care - Conversion Transaction, Provider Unknown - 07/02/2018 2:33 AM PSTFormatting of thi s note might be different from the original. Plan of Care by Lisa Howell RN at 07/02/18232 Author: Lisa Howell RN Service: (none) Author Type: Registered Nurse Filed: 07/02/18239 Date of Service: 07/02/18232 Status: Signed Global Marketing Manager: Lisa Howell RN (Registered Nurse) CA Day 1 - CA Management Hemodynamically stable Progressing No life threatening arrhythmia Progressing VS have remained stable. Pt has c/o one 30 min episode of 4-5/10, which resolved after admi nistration of IV solumedrol and PO ativan. Pt has remained NSR on telemetry. RISK FOR INJURY-SEIZURES Remain injury free-seizures Progressing Seizure precautions in place per hospital policy. Side rails padded, suction set up at bed side. Continuous pulse ox in place and stimuli decreased. Pain Patient's pain/discomfort is manageable Progressing Pt c/o chronic lower back pain and has had one episode of CP. Pt medicated per JUL. Pt re ports adequate pain relief with ordered medications. Instructed pt to call this RN if pain increases or worsens. Safety Patient will be injury free during hospitalization Progressing Safety precautions continued per hospital policy. Bed in lowest position, wheels locked, n on-slip socks on out of bed. Room is clutter free and well lit with over bed table and call light within reach. Walker and commode at bedside. Fall risk sign in front of room. Pt c alls appropriately as needed. lan o f Care - Conversion Transaction, Provider Unknown - 07/01/2018 12:14 PM PSTFormatting of levi s note might be different from the original. Plan of Care by Wilmar Church RN at 07/01/181213 Author: Wilmar Church RN Service: (none) Author Type: Registered Nurse Filed: 07/01/181213 Date of Service: 07/01/181213 Status: Signed Global Marketing Manager: Wilmar Church RN (Registered Nurse) Problem: Daily Care Goal: Daily care needs are met Assess and monitor ability to perform self care and identify potential discharge needs. Outcome: Progressing Pt continues to require assistance with transferring OOB. Pt's significant other is charles santiago one of his medications in today, if he can obtain ride, to aid in helping patient resume r egimen for disease process maintenance. lan o f Care - Conversion Transaction, Provider Unknown - 07/01/2018 3:38 AM PSTFormatting of levi s note might be different from the original. Plan of Care by Marco Alvares RN at 07/01/18337 Author: Marco Alvares RN Service: (none) Author Type: Registered Nurse Filed: 07/01/18337 Date of Service: 07/01/18337 Status: Signed Global Marketing Manager: Marco Alvares RN (Registered Nurse) Problem: Safety Goal: Patient will be injury free during hospitalization Assess and monitor vitals signs, neurological status including level of consciousness and o rientation. Assess patient's risk for falls and implement fall prevention plan of care and i nterventions per hospital policy. Ensure arm band on, uncluttered walking paths in room, adequate room lighting, call light a nd overbed table within reach, bed in low position, wheels locked, side rails up per policy, and non-skid footwear provided. Outcome: Progressing ID band on, bed in lowest position, call light within reach, non-skid footwear applied lan o f Care - Conversion Transaction, Provider Unknown - 06/30/2018 8:28 AM PSTFormatting of thi s note might be different from the original. Plan of Care by Clemente Jensen RN at 06/30/18827 Author: Clemente Jensen RN Service: (none) Author Type: Registered Nurse Filed: 06/30/18827 Date of Service: 06/30/18827 Status: Signed Global Marketing Manager: Clemente Jensen RN (Registered Nurse) Problem: Safety Goal: Patient will be injury free during hospitalization Assess and monitor vitals signs, neurological status including level of consciousness and o rientation. Assess patient's risk for falls and implement fall prevention plan of care and i nterventions per hospital policy. Ensure arm band on, uncluttered walking paths in room, adequate room lighting, call light a nd overbed table within reach, bed in low position, wheels locked, side rails up per policy, and non-skid footwear provided. Outcome: Progressing Call light within reach, patient calls PRN. Patient A/O X4, pathways clear, adequate light ing. lan o f Care - Conversion Transaction, Provider Unknown - 06/30/2018 2:09 AM PSTFormatting of thi s note might be different from the original. Plan of Care by Catherine Lee RN at 06/30/18208 Author: Catherine Lee RN Service: (none) Author Type: Registered Nurse Filed: 06/30/18208 Date of Service: 06/30/18208 Status: Signed Global Marketing Manager: Catherine Lee RN (Registered Nurse) Problem: Safety Goal: Patient will be injury free during hospitalization Assess and monitor vitals signs, neurological status including level of consciousness and o rientation. Assess patient's risk for falls and implement fall prevention plan of care and i nterventions per hospital policy. Ensure arm band on, uncluttered walking paths in room, adequate room lighting, call light a nd overbed table within reach, bed in low position, wheels locked, side rails up per policy, and non-skid footwear provided. Outcome: Progressing Pt assessed for fall risk. Patient educated on using call light. Bed and side table in lowe st position. Patient given non-skid socks and pathway clear between the bed and the bathroom . Patient agreeable to call before getting up. Problem: Daily Care Goal: Daily care needs are met Assess and monitor ability to perform self care and identify potential discharge needs. Outcome: Progressing Patient eager to perform ADL independently. Patient encouraged to call with needs. Problem: CA Day 1 - CA Management Goal: Hemodynamically stable Outcome: Progressing Patient educated on labs, ekg and cardiac monitoring. Patient very active in his care and e ager to get back to baseline and home. Patient agreeable to currently treatment plan. iscel rosaous - Conversion Transaction, Provider Unknown - 06/29/2018 7:21 PM PSTFormatting of th is note might be different from the original. Medication History by Emerson Hernandez RPH at 06/29/181920 Author: Emerson Hernandez RPH Service: Pharmacy Author Type: Pharmacist Filed: 06/29/181920 Date of Service: 06/29/181920 Status: Signed Global Marketing Manager: Emerson Hernandez RPH (Pharmacist) Rx Admission Medication History Note I have reviewed the medication history for appropriate doses obtained by: Pharmacy Medicat ion History Thermocouple Tester. After reviewing the home medication list : I agree with the home medication list. 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 Adjusted WALLPAPERER HELPER medications according to the cryptologic technician operator/analyst note below. - Removed and adjusted several medications as per cryptologic technician operator/analyst note. Per pharmacy, patient is prescribed pregabalin 150 mg daily, but patient reports taking it twice daily. Please Review and Order Home Medications as necessary. Thanks Emerson Hernandez PharmD, [facility] 06/29/2018 7:20 PM >> Nilda Flores CPhT 06/29/2018 18:04 Rx Medication History Thermocouple Tester Note Patients Preferred Pharmacy has been updated in EPIC: yes [id number] - [place], [place] - [address] [place] [address] Patients Allergies have been updated and marked as reviewed: yes Dilantin [phenytoin] and Neurontin [gabapentin] The following changes were made to the allergy list (if any): none Medication History provided by: Patient Follow-up Issues: None - Pending Pharmacist Review High Risk Medications (dual source verification needed): Antiretrovirals Changes made to the medication list include: Flagged for deletion; Albuterol; not taking Divalproex; taking ER Duloxatine; not taking Lorazepam; not taking Naproxen; not taking Ondansetron; not taking Promethazine; not taking Isentress; not taking Serevent; not taking Metoprolol ;not taking Added Divalproex ER Travada Telmisartanhctz Reliability of information obtained: RELIABLE Additional Comments: patient was able to verify his HIV medication. I had pharmacy fax med ication fill history for past 6 months to verify doses and his telmisartan Medication history has been completed: Nilda Flores CPhT 06/29/2018 6:01 PM Jose Angel perera in this encounter Plan of Treatment +--------+---------+ + + + | Date | Type | Specialty | Care Team | Description | +--------+---------+ + + + | 12/05/ | Office | Pain Medicine | Vitaliy Mendoza, | | | 2019 | Visit | | DO [address] | | | | | | [place] | | | | | | [id number] | | | | | | | | +--------+---------+ + + + documented as of this encounter Procedures + +--------+ + + + | Procedure Name | Priori | Date/Time | Associated Diagnosis | Comments | | | ty | | | | + +--------+ + + + | CT SOFT TISSUE NECK | Routin | 07/02/2018 | | Results for this | | W CONTRAST | e | 12:12 PM | | procedure are in the | | | | PST | | results section. | + +--------+ + + + | EXTERNAL LAB: CBC | Routin | 07/02/2018 | | Results for this | | | e | 6:12 AM | | procedure are in the | | | | PST | | results section. | + +--------+ + + + | MAGNESIUM | Routin | 07/02/2018 | | Results for this | | | e | 6:12 AM | | procedure are in the | | | | PST | | results section. | + +--------+ + + + | RENAL FUNCTION PANEL | Routin | 07/02/2018 | | Results for this | | | e | 6:12 AM | | procedure are in the | | | | PST | | results section. | + +--------+ + + + | CREATININE | Routin | 07/01/2018 | | Results for this | | | e | 2:57 PM | | procedure are in the | | | | PST | | results section. | + +--------+ + + + | LACTIC ACID | Routin | 07/01/2018 | | Results for this | | | e | 8:29 AM | | procedure are in the | | | | PST | | results section. | + +--------+ + + + | XR CHEST 1 VIEW | Routin | 07/01/2018 | | Results for this | | | e | 8:26 AM | | procedure are in the | | | | PST | | results section. | + +--------+ + + + | LACTIC ACID | Routin | 07/01/2018 | | Results for this | | | e | 6:32 AM | | procedure are in the | | | | PST | | results section. | + +--------+ + + + | B TYPE NATRIURETIC | Routin | 07/01/2018 | | Results for this | | PEPTIDE | e | 6:31 AM | | procedure are in the | | | | PST | | results section. | + +--------+ + + + | EXTERNAL LAB: CBC | Routin | 07/01/2018 | | Results for this | | | e | 6:30 AM | | procedure are in the | | | | PST | | results section. | + +--------+ + + + | PROCALCITONIN, SERUM | Routin | 07/01/2018 | | Results for this | | | e | 6:30 AM | | procedure are in the | | | | PST | | results section. | + +--------+ + + + | PHOSPHORUS | Routin | 07/01/2018 | | Results for this | | | e | 6:30 AM | | procedure are in the | | | | PST | | results section. | + +--------+ + + + | MAGNESIUM | Routin | 07/01/2018 | | Results for this | | | e | 6:30 AM | | procedure are in the | | | | PST | | results section. | + +--------+ + + + | COMPREHENSIVE | Routin | 07/01/2018 | | Results for this | | METABOLIC PANEL | e | 6:30 AM | | procedure are in the | | | | PST | | results section. | + +--------+ + + + | LIPID PANEL | Routin | 07/01/2018 | | Results for this | | | e | 4:38 AM | | procedure are in the | | | | PST | | results section. | + +--------+ + + + | TSH | Routin | 07/01/2018 | | Results for this | | | e | 4:38 AM | | procedure are in the | | | | PST | | results section. | + +--------+ + + + | HEMOGLOBIN A1C | Routin | 07/01/2018 | | Results for this | | | e | 4:38 AM | | procedure are in the | | | | PST | | results section. | + +--------+ + + + | NM MYOCARDIAL | Routin | 06/30/2018 | | Results for this | | PERFUSION MULT SPECT | e | 10:19 AM | | procedure are in the | | | | PST | | results section. | + +--------+ + + + | EXTERNAL LAB: CBC | Routin | 06/30/2018 | | Results for this | | | e | 4:47 AM | | procedure are in the | | | | PST | | results section. | + +--------+ + + + | PHOSPHORUS | Routin | 06/30/2018 | | Results for this | | | e | 4:47 AM | | procedure are in the | | | | PST | | results section. | + +--------+ + + + | MAGNESIUM | Routin | 06/30/2018 | | Results for this | | | e | 4:47 AM | | procedure are in the | | | | PST | | results section. | + +--------+ + + + | COMPREHENSIVE | Routin | 06/30/2018 | | Results for this | | METABOLIC PANEL | e | 4:47 AM | | procedure are in the | | | | PST | | results section. | + +--------+ + + + | URINALYSIS, REFLEX | Routin | 06/30/2018 | | Results for this | | MICROSCOPIC AND/OR | e | 4:23 AM | | procedure are in the | | CULTURE | | PST | | results section. | + +--------+ + + + | TROPONIN I | Routin | 06/29/2018 | | Results for this | | | e | 11:43 PM | | procedure are in the | | | | PST | | results section. | + +--------+ + + + | MRI LUMBAR SPINE WO | Routin | 06/29/2018 | | Results for this | | CONTRAST | e | 10:27 PM | | procedure are in the | | | | PST | | results section. | + +--------+ + + + | MRI BRAIN WO | Routin | 06/29/2018 | | Results for this | | CONTRAST | e | 10:16 PM | | procedure are in the | | | | PST | | results section. | + +--------+ + + + | TROPONIN I | Routin | 06/29/2018 | | Results for this | | | e | 8:41 PM | | procedure are in the | | | | PST | | results section. | + +--------+ + + + | XR CHEST 1 VIEW | Routin | 06/29/2018 | | Results for this | | | e | 4:09 PM | | procedure are in the | | | | PST | | results section. | + +--------+ + + + | ECG 12 LEAD | Routin | 06/29/2018 | | Results for this | | | e | 3:56 PM | | procedure are in the | | | | PST | | results section. | + +--------+ + + + | CT LUMBAR SPINE WO | Routin | 06/29/2018 | | Results for this | | CONTRAST | e | 2:21 PM | | procedure are in the | | | | PST | | results section. | + +--------+ + + + | EXTERNAL LAB: CBC | Routin | 06/29/2018 | | Results for this | | | e | 1:26 PM | | procedure are in the | | | | PST | | results section. | + +--------+ + + + | SEDIMENTATION RATE, | Routin | 06/29/2018 | | Results for this | | AUTOMATED | e | 1:26 PM | | procedure are in the | | | | PST | | results section. | + +--------+ + + + | C-REACTIVE PROTEIN | Routin | 06/29/2018 | | Results for this | | | e | 1:26 PM | | procedure are in the | | | | PST | | results section. | + +--------+ + + + | VALPROIC ACID LEVEL | Routin | 06/29/2018 | | Results for this | | | e | 1:26 PM | | procedure are in the | | | | PST | | results section. | + +--------+ + + + | COMPREHENSIVE | Routin | 06/29/2018 | | Results for this | | METABOLIC PANEL | e | 1:26 PM | | procedure are in the | | | | PST | | results section. | + +--------+ + + + documented in this encounter Results CT Soft Tissue Neck w Contrast (07/02/2018 12:12 PM PST) + + | Specimen | + + | | + + + + + | Impressions | Performed At | + + + | 1. There is mild mucosal edema of the nasopharynx and adenoids with | | | mild narrowing of the nasopharyngeal and oropharyngeal airways. The | | | vocal cords appear closed. The trachea and larynx appear patent. | | | There is no evidence of focal associated mass. There is no | | | significant lymphadenopathy. 2. There is continued moderate to | | | marked opacification the mastoid air cells that is stable from the | | | prior MRI. There is thickening of the tympanic membranes | | | bilaterally. This may represent mastoiditis. There is no evident | | | complication. 3. [id number] S-type curvature of the cervical | | | and upper thoracic spine is fairly stable from the prior MRI. There | | | is slight progression of degenerative spondylosis with multilevel | | | mild appearing canal stenosis and moderate foraminal stenosis. | | | Signed by: MD Chase, Bam Sign Date/Time: 07/02/2018 12:37 PM | | + + + + + + | Narrative | Performed At | + + + | CT SOFT TISSUE NECK WITH CONTRAST CLINICAL INFORMATION: Stridor. | | | COMPARISON: Partial comparison MRI cervical 04/12/2012. PROCEDURE: | | | Thin section axial post contrast images were obtained through the soft | | | tissues of the neck. Multiplanar reformations were obtained from the | | | axial acquisition data. Contrast: 80 ml omnipaque 350 IV. At least | | | one of the following CT dose optimization techniques were used: | | | Automated exposure control; Adjustment of mA and/or kV according to | | | patient size; Use of iterative reconstruction technique. FINDINGS: | | | Imaged portions of the brain and orbits: The visualized intracranial | | | portion appears stable from the recent MRI brain without acute | | | abnormality suggested. The orbits appear symmetric and within normal | | | limits. Paranasal Sinuses and Mastoid Air Cells: There is mild | | | sinus disease with left maxillary mucous retention cyst. There is | | | moderate to marked opacification of the mastoid air cells that is | | | stable from the prior MRI. There is thickening of the tympanic | | | membranes bilaterally. The adjacent dural venous sinuses appear | | | grossly patent. Gas Plumber Spaces: Unremarkable. Floor of the Mouth, | | | Oral Cavity, Sublingual Spaces, and Tongue Base: Lingual tonsils are | | | within normal limits. The tongue base is within normal limits. | | | The sublingual space is within normal limits. Nasopharynx, | | | Oropharynx, and Retropharynx: There is mild mucosal edema of the | | | nasopharynx and adenoids. There is narrowing of nasopharyngeal and | | | oropharyngeal airway. Retropharyngeal space is within normal | | | limits. Hypopharynx and Larynx: The vocal cords appear closed. | | | There is narrowing of the nasopharyngeal and oropharyngeal airway. | | | The trachea and larynx appear patent. Lymph Nodes: There is no | | | significant lymphadenopathy based on size criterion within the | | | anterior or posterior cervical chains. There is no evidence of | | | discrete necrosis. Submandibular and Parotid Spaces: The | | | submandibular glands and parotid glands appear symmetric and within | | | normal limits. Carotid Vascular Spaces and Major Vascular Structures: | | | There is mild atherosclerotic disease. Thyroid Space: Thyroid gland | | | is unremarkable in appearance. Cervical Spine and Osseous | | | Structures: There is lnpc-vl-jqvhdevy S-type curvature of cervical | | | spine and upper thoracic spine apex to the right in the cervical | | | spine and to the left in the upper thoracic spine. There is moderate | | | appearing degenerative spondylosis at C4-7. There is partial bony | | | fusion at T2-3 anteriorly. There is multilevel mild appearing canal | | | stenosis greatest at C4-5 and C7-T1. There is multilevel moderate | | | foraminal stenosis asymmetric to the left in the cervical spine and | | | to the right in the upper thoracic spine. This appears stable to | | | slightly progressed from the prior MRI. Imaged portions of the lung | | | apices and upper mediastinum: The lung apices appear clear of focal | | | infiltrate. | | + + + + + | Procedure Note | + + | Eric, Rad Conversion - 12/27/2018 7:[address] SOFT TISSUE NECK WITH CONTRAST | | CLINICAL INFORMATION: | | Stridor. | | COMPARISON: | | Partial comparison MRI cervical 04/12/2012. | | PROCEDURE: | | Thin section axial post contrast images were obtained through the soft | | tissues of the neck. Multiplanar reformations were obtained from the | | axial acquisition data. | | Contrast: 80 ml omnipaque 350 IV. | | At least one of the following CT dose optimization techniques were | | used: Automated exposure control; Adjustment of mA and/or kV according | | to patient size; Use of iterative reconstruction technique. | | FINDINGS: | | Imaged portions of the brain and orbits: The visualized intracranial | | portion appears stable from the recent MRI brain without acute | | abnormality suggested. The orbits appear symmetric and within normal | | limits. | | Paranasal Sinuses and Mastoid Air Cells: There is mild sinus disease | | with left maxillary mucous retention cyst. There is moderate to marked | | opacification of the mastoid air cells that is stable from the prior | | MRI. There is thickening of the tympanic membranes bilaterally. The | | adjacent dural venous sinuses appear grossly patent. | | Gas Plumber Spaces: Unremarkable. | | Floor of the Mouth, Oral Cavity, Sublingual Spaces, and Tongue Base: | | Lingual tonsils are within normal limits. The tongue base is within | | normal limits. The sublingual space is within normal limits. | | Nasopharynx, Oropharynx, and Retropharynx: There is mild mucosal edema | | of the nasopharynx and adenoids. There is narrowing of nasopharyngeal | | and oropharyngeal airway. Retropharyngeal space is within normal | | limits. | | Hypopharynx and Larynx: The vocal cords appear closed. There is | | narrowing of the nasopharyngeal and oropharyngeal airway. The trachea | | and larynx appear patent. | | Lymph Nodes: There is no significant lymphadenopathy based on size | | criterion within the anterior or posterior cervical chains. There is | | no evidence of discrete necrosis. | | Submandibular and Parotid Spaces: The submandibular glands and parotid | | glands appear symmetric and within normal limits. | | Carotid Vascular Spaces and Major Vascular Structures: There is mild | | atherosclerotic disease. | | Thyroid Space: Thyroid gland is unremarkable in appearance. | | Cervical Spine and Osseous Structures: There is lueq-zr-lzpmfsqj S-type | | curvature of cervical spine and upper thoracic spine apex to the right | | in the cervical spine and to the left in the upper thoracic spine. | | There is moderate appearing degenerative spondylosis at C4-7. There is | | partial bony fusion at T2-3 anteriorly. There is multilevel mild | | appearing canal stenosis greatest at C4-5 and C7-T1. There is | | multilevel moderate foraminal stenosis asymmetric to the left in the | | cervical spine and to the right in the upper thoracic spine. This | | appears stable to slightly progressed from the prior MRI. | | Imaged portions of the lung apices and upper mediastinum: The lung | | apices appear clear of focal infiltrate. | | IMPRESSION: | | 1. There is mild mucosal edema of the nasopharynx and adenoids with | | mild narrowing of the nasopharyngeal and oropharyngeal airways. The | | vocal cords appear closed. The trachea and larynx appear patent. | | There is no evidence of focal associated mass. There is no significant | | lymphadenopathy. | | 2. There is continued moderate to marked opacification the mastoid air | | cells that is stable from the prior MRI. There is thickening of the | | tympanic membranes bilaterally. This may represent mastoiditis. There | | is no evident complication. | | 3. Cmmf-oe-wopgjdia S-type curvature of the cervical and upper thoracic | | spine is fairly stable from the prior MRI. There is slight progression | | of degenerative spondylosis with multilevel mild appearing canal | | stenosis and moderate foraminal stenosis. | | Signed by: MD Stone Kenneth | | Sign Date/Time: 07/02/2018 12:37 PM | + + External Lab: CBC (07/02/2018 6:12 AM PST) + + + + + + | Component | Value | Ref Range | Performed | Pathologist | | | | | At | Signature | + + + + + + | WBC | 2.62 (L) | 3.80 - 11.00 | EXTERNAL | | | | | K/uL | LAB | | + + + + + + | Non- | 4.50 | 4.20 - 5.70 | EXTERNAL | | | Red Blood | | M/uL | LAB | | | Cells | | | | | | Counted | | | | | + + + + + + | Hemoglobin | 13.4 | 13.2 - 17.0 | EXTERNAL | | | | | g/dL | LAB | | + + + + + + | Hematocrit, | 38.4 (L) | 39.0 - 50.0 % | EXTERNAL | | | POC | | | LAB | | + + + + + + | MCV | 85.4 | 80.0 - 100.0 fl | EXTERNAL | | | | | | LAB | | + + + + + + | MCH | 29.8 | 27.0 - 34.0 pg | EXTERNAL | | | | | | LAB | | + + + + + + | MCHC | 34.8 | 32.0 - 35.5 | EXTERNAL | | | | | g/dL | LAB | | + + + + + + | RDW-CV | 39.8 | 37 - 53 fl | EXTERNAL | | | | | | LAB | | + + + + + + | Platelet | 126 (L) | 150 - 400 K/uL | EXTERNAL | | | Count | | | LAB | | | Plasma | | | | | + + + + + + | MPV | 8.2 | fl | EXTERNAL | | | | | | LAB | | + + + + + + | Differentia | AUTOMATED | | EXTERNAL | | | l Type | | | LAB | | + + + + + + | % Segmented | 58.07 | % | EXTERNAL | | | | | | LAB | | | Neutrophils | | | | | + + + + + + | % | 33.54 | % | EXTERNAL | | | Lymphocytes | | | LAB | | + + + + + + | % Monocytes | 8.25 | % | EXTERNAL | | | | | | LAB | | + + + + + + | % | 0.00 | % | EXTERNAL | | | Eosinophils | | | LAB | | + + + + + + | % Basophils | 0.14 | % | EXTERNAL | | | | | | LAB | | + + + + + + | Absolute | 1.52 (L) | 1.90 - 7.40 | EXTERNAL | | | Segmented | | K/uL | LAB | | | Neutrophils | | | | | + + + + + + | Absolute | 0.88 (L) | 1.00 - 3.90 | EXTERNAL | | | Lymphocytes | | K/uL | LAB | | + + + + + + | Absolute | 0.22 | 0.00 - 0.80 | EXTERNAL | | | Monocytes | | K/uL | LAB | | + + + + + + | Absolute | 0.00 | 0.00 - 0.50 | EXTERNAL | | | Eosinophils | | K/uL | LAB | | + + + + + + | Absolute | 0.00Comment: Testing | 0.00 - 0.10 | EXTERNAL | | | Basophils | performed at [facility];[address] | K/uL | LAB | | | | [address];[place], [place] | | | | | | [address] | | | | + + + + + + + + | Specimen | + + | Blood specimen | | (specimen) | + + + +---------+ + + | Performing | Address | City/State/Zipcode | Phone Number | | Organization | | | | + +---------+ + + | EXTERNAL LAB | | | | + +---------+ + + Magnesium (07/02/2018 6:12 AM PST) + + + + + + | Component | Value | Ref Range | Performed | Pathologist | | | | | At | Signature | + + + + + + | Magnesium | 1.6 (L)Comment: Testing | 1.7 - 2.4 mg/dL | EXTERNAL | | | | performed at [facility];[address] | | LAB | | | | [address];[place], [place] | | | | | | [address] | | | | + + + + + + + + | Specimen | + + | Blood specimen | | (specimen) | + + + +---------+ + + | Performing | Address | City/State/Zipcode | Phone Number | | Organization | | | | + +---------+ + + | EXTERNAL LAB | | | | + +---------+ + + Renal Function Panel (07/02/2018 6:12 AM PST) + + + + + + | Component | Value | Ref Range | Performed | Pathologist | | | | | At | Signature | + + + + + + | Na | 146 (H) | 135 - 145 | EXTERNAL | | | | | mmol/L | LAB | | + + + + + + | K | 4.0 | 3.5 - 4.9 | EXTERNAL | | | | | mmol/L | LAB | | + + + + + + | Cl | 106 | 99 - 109 mmol/L | EXTERNAL | | | | | | LAB | | + + + + + + | CO2 | 30 | 23 - 32 mmol/L | EXTERNAL | | | | | | LAB | | + + + + + + | Anion Gap | 14 | 5 - 20 mmol/L | EXTERNAL | | | | | | LAB | | + + + + + + | Glucose, | 123 (H) | 65 - 99 mg/dL | EXTERNAL | | | Fasting | | | LAB | | + + + + + + | BUN | 19 | 8 - 25 mg/dL | EXTERNAL | | | | | | LAB | | + + + + + + | Creatinine | 0.85 | 0.70 - 1.30 | EXTERNAL | | | | | mg/dL | LAB | | + + + + + + | Calcium | 8.6 | 8.5 - 10.5 | EXTERNAL | | | | | mg/dL | LAB | | + + + + + + | Albumin | 4.2 | 3.6 - 5.0 g/dL | EXTERNAL | | | | | | LAB | | + + + + + + | PHOSPHORUS | 3.6 | 2.3 - 4.8 mg/dL | EXTERNAL | | | | | | LAB | | + + + + + + | Estimated | >60Comment: GFR <60: | mL/min/1.73m2 | EXTERNAL | | | GFR | CHRONIC KIDNEY DISEASE, | | LAB | | | | IF FOUND OVER [...] | | | | | performed at [facility];[address] | | | | | | [facility];[place], [place] | | | | | | [address] | | | | + + + + + + + + | Specimen | + + | | + + + +---------+ + + | Performing | Address | City/State/Zipcode | Phone Number | | Organization | | | | + +---------+ + + | EXTERNAL LAB | | | | + +---------+ + + Creatinine (07/01/2018 2:57 PM PST) + + + + + + | Component | Value | Ref Range | Performed | Pathologist | | | | | At | Signature | + + + + + + | Creatinine | 1.12Comment: Testing | 0.70 - 1.30 | EXTERNAL | | | | performed at [facility];[address] | mg/dL | LAB | | | | [address];[place], [place] | | | | | | [address] | | | | + + + + + + + + | Specimen | + + | Blood specimen | | (specimen) | + + + +---------+ + + | Performing | Address | City/State/Zipcode | Phone Number | | Organization | | | | + +---------+ + + | EXTERNAL LAB | | | | + +---------+ + + Lactic Acid (07/01/2018 8:29 AM PST) + + + + + + | Component | Value | Ref Range | Performed | Pathologist | | | | | At | Signature | + + + + + + | Lactate | 0.7Comment: Testing | 0.4 - 2.0 | EXTERNAL | | | | performed at [facility];[address] | mmol/L | LAB | | | | [facility];[place], [place] | | | | | | [address] | | | | + + + + + + + + | Specimen | + + | Blood specimen | | (specimen) | + + + +---------+ + + | Performing | Address | City/State/Zipcode | Phone Number | | Organization | | | | + +---------+ + + | EXTERNAL LAB | | | | + +---------+ + + XR Chest 1 Vw (07/01/2018 8:26 AM PST) + + | Specimen | + + | | + + + + + | Impressions | Performed At | + + + | Minimal bibasilar subsegmental atelectasis. Signed by: Trent Krishna | | | Sign Date/Time: 07/01/2018 8:30 AM | | + + + + + + | Narrative | Performed At | + + + | CHEST ONE VIEW CLINICAL INFORMATION: Seizures ([facility]), HIV (human | | | immunodeficiency virus infection) ([facility]), Fall, initial encounter, | | | Strain of lumbar region, initial encounter, Chest pain, unspecified | | | type COMPARISON: XR CHEST 1 VIEW (06/29/2018); ROSA C ARM GUIDANCE | | | (01/25/2014); ROSA C ARM GUIDANCE (11/02/2013); FINDINGS: The heart is | | | normal in size. No pulmonary vascular congestion. No | | | pneumothorax. Minimal bibasilar subsegmental atelectasis. | | + + + + + | Procedure Note | + + | Eric, Rad Conversion - 12/27/2018 7:02 PM PDT CHEST ONE VIEW | | CLINICAL INFORMATION: | | Seizures ([facility]), HIV (human immunodeficiency virus infection) ([facility]), | | Fall, initial encounter, Strain of lumbar region, initial encounter, | | Chest pain, unspecified type | | COMPARISON: | | XR CHEST 1 VIEW (06/29/2018); ROSA C ARM GUIDANCE (01/25/2014); ROSA C ARM | | GUIDANCE (11/02/2013); | | FINDINGS: | | The heart is normal in size. No pulmonary vascular congestion. No | | pneumothorax. Minimal bibasilar subsegmental atelectasis. | | IMPRESSION: | | Minimal bibasilar subsegmental atelectasis. | | Signed by: Trent Krishna | | Sign Date/Time: 07/01/2018 8:30 AM | + + Lactic Acid (07/01/2018 6:32 AM PST) + + + + + + | Component | Value | Ref Range | Performed | Pathologist | | | | | At | Signature | + + + + + + | Lactate | 1.2Comment: Testing | 0.4 - 2.0 | EXTERNAL | | | | performed at [facility];[address] | mmol/L | LAB | | | | [address];[place], [place] | | | | | | [address] | | | | + + + + + + + + | Specimen | + + | Blood specimen | | (specimen) | + + + +---------+ + + | Performing | Address | City/State/Zipcode | Phone Number | | Organization | | | | + +---------+ + + | EXTERNAL LAB | | | | + +---------+ + + B Type Natriuretic Peptide (07/01/2018 6:31 AM PST) + + + + + + | Component | Value | Ref Range | Performed | Pathologist | | | | | At | Signature | + + + + + + | BNP | 3.13Comment: Testing | 0 - 100 pg/mL | EXTERNAL | | | | performed at [facility];[address] | | LAB | | | | [address];[place], [place] | | | | | | [address] | | | | + + + + + + + + | Specimen | + + | Blood specimen | | (specimen) | + + + +---------+ + + | Performing | Address | City/State/Zipcode | Phone Number | | Organization | | | | + +---------+ + + | EXTERNAL LAB | | | | + +---------+ + + Procalcitonin (07/01/2018 6:30 AM PST) + + + + + + | Component | Value | Ref Range | Performed | Pathologist | | | | | At | Signature | + + + + + + | PROCALCITON | <0.05Comment: | ng/mL | EXTERNAL | | | IN | INTERPRETIVE | | LAB | | | | INFORMATION: | | | | | | PROCALCITONIN PCT <= | | | | | | 0.5 ng/mL: Low risk | | | | | | for progression to | | | | | | severe systemic | | | | | | bacterial infection | | | | | | (severe sepsis/septic | | | | | | shock). Does not | | | | | | exclude an infection, | | | | | | because localized | | | | | | infections may be | | | | | | associated with such low | | | | | | levels. If PCT is | | | | | | measured very early | | | | | | after bacterial | | | | | | challenge (usually <6 | | | | | | hours), results may | | | | | | still be low and | | | | | | should re-assess PCT | | | | | | 6-24 hours later. PCT | | | | | | >0.5 and <= 2 ng/mL: | | | | | | Moderate risk for | | | | | | progression to severe | | | | | | systemic infection | | | | | | (severe sepsis/septic | | | | | | shock). Other | | | | | | conditions are known | | | | | | to elevate PCT, patient | | | | | | should be closely | | | | | | monitored both | | | | | | clinically and by | | | | | | re-assessing PCT | | | | | | within 6-24 hours. PCT > | | | | | | 2 ng/mL: High | | | | | | likelihood for | | | | | | progression to severe | | | | | | systemic bacterial | | | | | | infection (severe | | | | | | sepsis/septic shock). | | | | | | PCT >= 10 ng/mL: | | | | | | High likelihood of | | | | | | severe sepsis or septic | | | | | | shock.Testing performed | | | | | | at [facility];[address] [place] [address] | | | | | | [facility];[place] [address] | | | | + + + + + + + + | Specimen | + + | | + + + +---------+ + + | Performing | Address | City/State/Zipcode | Phone Number | | Organization | | | | + +---------+ + + | EXTERNAL LAB | | | | + +---------+ + + External Lab: CBC (07/01/2018 6:30 AM PST) + + + + + + | Component | Value | Ref Range | Performed | Pathologist | | | | | At | Signature | + + + + + + | WBC | 3.72 (L) | 3.80 - 11.00 | EXTERNAL | | | | | K/uL | LAB | | + + + + + + | Non- | 4.71 | 4.20 - 5.70 | EXTERNAL | | | Red Blood | | M/uL | LAB | | | Cells | | | | | | Counted | | | | | + + + + + + | Hemoglobin | 13.8 | 13.2 - 17.0 | EXTERNAL | | | | | g/dL | LAB | | + + + + + + | Hematocrit, | 39.4 | 39.0 - 50.0 % | EXTERNAL | | | POC | | | LAB | | + + + + + + | MCV | 83.6 | 80.0 - 100.0 fl | EXTERNAL | | | | | | LAB | | + + + + + + | MCH | 29.3 | 27.0 - 34.0 pg | EXTERNAL | | | | | | LAB | | + + + + + + | MCHC | 35.0 | 32.0 - 35.5 | EXTERNAL | | | | | g/dL | LAB | | + + + + + + | RDW-CV | 40.3 | 37 - 53 fl | EXTERNAL | | | | | | LAB | | + + + + + + | Platelet | 147 (L) | 150 - 400 K/uL | EXTERNAL | | | Count | | | LAB | | | Plasma | | | | | + + + + + + | MPV | 8.0 | fl | EXTERNAL | | | | | | LAB | | + + + + + + | Differentia | AUTOMATED | | EXTERNAL | | | l Type | | | LAB | | + + + + + + | % Segmented | 36.89 | % | EXTERNAL | | | | | | LAB | | | Neutrophils | | | | | + + + + + + | % | 49.87 | % | EXTERNAL | | | Lymphocytes | | | LAB | | + + + + + + | % Monocytes | 12.51 | % | EXTERNAL | | | | | | LAB | | + + + + + + | % | 0.10 | % | EXTERNAL | | | Eosinophils | | | LAB | | + + + + + + | % Basophils | 0.63 | % | EXTERNAL | | | | | | LAB | | + + + + + + | Absolute | 1.37 (L) | 1.90 - 7.40 | EXTERNAL | | | Segmented | | K/uL | LAB | | | Neutrophils | | | | | + + + + + + | Absolute | 1.86 | 1.00 - 3.90 | EXTERNAL | | | Lymphocytes | | K/uL | LAB | | + + + + + + | Absolute | 0.47 | 0.00 - 0.80 | EXTERNAL | | | Monocytes | | K/uL | LAB | | + + + + + + | Absolute | 0.00 | 0.00 - 0.50 | EXTERNAL | | | Eosinophils | | K/uL | LAB | | + + + + + + | Absolute | 0.02Comment: Testing | 0.00 - 0.10 | EXTERNAL | | | Basophils | performed at [facility];[address] | K/uL | LAB | | | | [address];[place], [place] | | | | | | [address] | | | | + + + + + + + + | Specimen | + + | Blood specimen | | (specimen) | + + + +---------+ + + | Performing | Address | City/State/Zipcode | Phone Number | | Organization | | | | + +---------+ + + | EXTERNAL LAB | | | | + +---------+ + + Phosphorus (07/01/2018 6:30 AM PST) + + + + + + | Component | Value | Ref Range | Performed | Pathologist | | | | | At | Signature | + + + + + + | PHOSPHORUS | 4.1Comment: Testing | 2.3 - 4.8 mg/dL | EXTERNAL | | | | performed at [facility];[address] | | LAB | | | | [address];[place], [place] | | | | | | [address] | | | | + + + + + + + + | Specimen | + + | Blood specimen | | (specimen) | + + + +---------+ + + | Performing | Address | City/State/Zipcode | Phone Number | | Organization | | | | + +---------+ + + | EXTERNAL LAB | | | | + +---------+ + + Magnesium (07/01/2018 6:30 AM PST) + + + + + + | Component | Value | Ref Range | Performed | Pathologist | | | | | At | Signature | + + + + + + | Magnesium | 1.8Comment: Testing | 1.7 - 2.4 mg/dL | EXTERNAL | | | | performed at [facility];[address] | | LAB | | | | [address];[place], [place] | | | | | | [address] | | | | + + + + + + + + | Specimen | + + | Blood specimen | | (specimen) | + + + +---------+ + + | Performing | Address | City/State/Zipcode | Phone Number | | Organization | | | | + +---------+ + + | EXTERNAL LAB | | | | + +---------+ + + Comprehensive Metabolic Panel (07/01/2018 6:30 AM PST) + + + + + + | Component | Value | Ref Range | Performed | Pathologist | | | | | At | Signature | + + + + + + | Na | 144 | 135 - 145 | EXTERNAL | | | | | mmol/L | LAB | | + + + + + + | K | 4.0 | 3.5 - 4.9 | EXTERNAL | | | | | mmol/L | LAB | | + + + + + + | Cl | 108 | 99 - 109 mmol/L | EXTERNAL | | | | | | LAB | | + + + + + + | CO2 | 27 | 23 - 32 mmol/L | EXTERNAL | | | | | | LAB | | + + + + + + | Anion Gap | 13 | 5 - 20 mmol/L | EXTERNAL | | | | | | LAB | | + + + + + + | Glucose, | 97 | 65 - 99 mg/dL | EXTERNAL | | | Fasting | | | LAB | | + + + + + + | BUN | 24 | 8 - 25 mg/dL | EXTERNAL | | | | | | LAB | | + + + + + + | Creatinine | 1.42 (H) | 0.70 - 1.30 | EXTERNAL | | | | | mg/dL | LAB | | + + + + + + | BUN/Creatin | 17 | | EXTERNAL | | | ine Ratio | | | LAB | | + + + + + + | Calcium | 8.2 (L) | 8.5 - 10.5 | EXTERNAL | | | | | mg/dL | LAB | | + + + + + + | Protein, | 5.8 (L) | 6.3 - 8.2 g/dL | EXTERNAL | | | Total | | | LAB | | + + + + + + | Albumin | 4.0 | 3.6 - 5.0 g/dL | EXTERNAL | | | | | | LAB | | + + + + + + | Globulin | 1.8 | 1.3 - 4.9 g/dL | EXTERNAL | | | | | | LAB | | + + + + + + | A/G Ratio | 2.2 | 1.0 - 2.4 | EXTERNAL | | | | | | LAB | | + + + + + + | Bilirubin | 0.5 | 0.1 - 1.5 mg/dL | EXTERNAL | | | Total | | | LAB | | + + + + + + | ALP, | 74 | 35 - 115 U/L | EXTERNAL | | | External | | | LAB | | + + + + + + | AST | 16 | 10 - 45 U/L | EXTERNAL | | | | | | LAB | | + + + + + + | ALT | 13 | 10 - 65 U/L | EXTERNAL | | | | | | LAB | | + + + + + + | Estimated | 53 (L)Comment: GFR <60: | mL/min/1.73m2 | EXTERNAL | | | GFR | CHRONIC KIDNEY DISEASE, | | LAB | | | | IF FOUND OVER [...] | | | | | | MDRD IDMN traceable | | | | | | equation.Testing | | | | | | performed at [facility];[address] | | | | | | [facility];[place], [place] | | | | | | [address] | | | | + + + + + + + + | Specimen | + + | Blood specimen | | (specimen) | + + + +---------+ + + | Performing | Address | City/State/Zipcode | Phone Number | | Organization | | | | + +---------+ + + | EXTERNAL LAB | | | | + +---------+ + + TSH (07/01/2018 4:38 AM PST) + + + + + + | Component | Value | Ref Range | Performed | Pathologist | | | | | At | Signature | + + + + + + | TSH | 0.855Comment: Testing | 0.450 - 5.100 | EXTERNAL | | | | performed at [facility], [address] | uIU/mL | LAB | | | | [address], | | | | | | [place] [address] | | | | + + + + + + + + | Specimen | + + | Blood specimen | | (specimen) | + + + +---------+ + + | Performing | Address | City/State/Zipcode | Phone Number | | Organization | | | | + +---------+ + + | EXTERNAL LAB | | | | + +---------+ + + Hemoglobin A1C (07/01/2018 4:38 AM PST) + + + + + + | Component | Value | Ref Range | Performed | Pathologist | | | | | At | Signature | + + + + + + | Hemoglobin | 5.2Comment: HbA1c method | 4.0 - 6.0 % | EXTERNAL | | | A1c | is certified by [employer] | | LAB | | | | and traceable to the | | | | | | DCCT reference | | | | | | method.ADA guidelines | | | | | | indicate: | | | | | | Prediabetes: 5.7 - 6.4 | | | | | | Diabetes: >6.4 | | | | | | Glycemic control for | | | | | | adults with diabetes: | | | | | | <7.0Effective 06/01/2018: | | | | | | Note New Method | | | | + + + + + + | Glycohemogl | 103Comment: Estimated | mg/dL | EXTERNAL | | | obin | Average Glucose | | LAB | | | (GHb),Total | calculated from | | | | | | hemoglobin A1c by use of | | | | | | the ADA recommended | | | | | | formula.Testing | | | | | | performed at [facility], [address] | | | | | | [facility], | | | | | | [place] [address] | | | | + + + + + + + + | Specimen | + + | Blood specimen | | (specimen) | + + + +---------+ + + | Performing | Address | City/State/Zipcode | Phone Number | | Organization | | | | + +---------+ + + | EXTERNAL LAB | | | | + +---------+ + + Lipid Panel (07/01/2018 4:38 AM PST) + + + + + + | Component | Value | Ref Range | Performed | Pathologist | | | | | At | Signature | + + + + + + | Cholesterol | 124 | mg/dL | EXTERNAL | | | | | | LAB | | + + + + + + | Triglycerid | 72 | mg/dL | EXTERNAL | | | es | | | LAB | | + + + + + + | HDL | 33 (L) | mg/dL | EXTERNAL | | | | | | LAB | | + + + + + + | LDL, | 77Comment: Testing | mg/dL | EXTERNAL | | | Calculated | performed at [facility], [address] | | LAB | | | | [address], | | | | | | [place] [address] | | | | + + + + + + + + | Specimen | + + | Blood specimen | | (specimen) | + + + +---------+ + + | Performing | Address | City/State/Zipcode | Phone Number | | Organization | | | | + +---------+ + + | EXTERNAL LAB | | | | + +---------+ + + NM Myocardial Perfusion Mult SPECT (06/30/2018 10:19 AM PST) + + | Specimen | + + | | + + + + + | Impressions | Performed At | + + + | 1. No evidence of ischemia or infarct. 2. Normal LV wall motion. | | | 3. LVEF 60% rest, 56% stress. Low risk stratification. Signed by: | | | Stevie Power Sign Date/Time: 06/30/2018 10:23 AM | | + + + + + + | Narrative | Performed At | + + + | REST/STRESS MYOCARDIAL PERFUSION STUDY PROTOCOL: STANDARD MARTIN | | | EXERCISE. CLINICAL INFORMATION: Chest pain COMPARISON: None | | | PROCEDURE: Treadmill stress testing was performed and reported | | | separately, followed by the standard department protocol for the | | | SPECT myocardial perfusion examination. RADIOPHARMACEUTICALS: 32.2 | | | mCi technetium 99m {sestamibi} IV for stress imaging, and to 10.2 mCi | | | technetium 99m sestamibi IV for rest imaging. FINDINGS: Myocardial | | | Perfusion SPECT Images: Rest and stress myocardial perfusion images | | | appear normal. There is no evidence of ischemia or infarct. Gated | | | Study: Rest LVEF 60%. Stress LVEF 56%. Volumes: Rest EDV 79 mL. | | | Rest ESV 31 mL. Stress EDV 91 mL. Stress ESV 40 mL. Wall Motion: | | | Normal LV wall motion. | | + + + + + | Procedure Note | + + | El Reyes Conversion - 12/27/2018 7:02 PM PDT REST/STRESS MYOCARDIAL PERFUSION STUDY | | PROTOCOL: | | STANDARD MARTIN EXERCISE. | | CLINICAL INFORMATION: | | Chest pain | | COMPARISON: | | None | | PROCEDURE: | | Treadmill stress testing was performed and reported separately, | | followed by the standard department protocol for the SPECT myocardial | | perfusion examination. | | RADIOPHARMACEUTICALS: | | 32.2 mCi technetium 99m {sestamibi} IV for stress imaging, and to 10.2 | | mCi technetium 99m sestamibi IV for rest imaging. | | FINDINGS: | | Myocardial Perfusion SPECT Images: | | Rest and stress myocardial perfusion images appear normal. There is no | | evidence of ischemia or infarct. | | Gated Study: | | Rest LVEF 60%. | | Stress LVEF 56%. | | Volumes: | | Rest EDV 79 mL. | | Rest ESV 31 mL. | | Stress EDV 91 mL. | | Stress ESV 40 mL. | | Wall Motion: | | Normal LV wall motion. | | IMPRESSION: | | 1. No evidence of ischemia or infarct. | | 2. Normal LV wall motion. | | 3. LVEF 60% rest, 56% stress. | | Low risk stratification. | | Signed by: Stevie Power | | Sign Date/Time: 06/30/2018 10:23 AM | + + External Lab: CBC (06/30/2018 4:47 AM PST) + + + + + + | Component | Value | Ref Range | Performed | Pathologist | | | | | At | Signature | + + + + + + | WBC | 3.55 (L) | 3.80 - 11.00 | EXTERNAL | | | | | K/uL | LAB | | + + + + + + | Non- | 5.32 | 4.20 - 5.70 | EXTERNAL | | | Red Blood | | M/uL | LAB | | | Cells | | | | | | Counted | | | | | + + + + + + | Hemoglobin | 15.4 | 13.2 - 17.0 | EXTERNAL | | | | | g/dL | LAB | | + + + + + + | Hematocrit, | 45.1 | 39.0 - 50.0 % | EXTERNAL | | | POC | | | LAB | | + + + + + + | MCV | 84.7 | 80.0 - 100.0 fl | EXTERNAL | | | | | | LAB | | + + + + + + | MCH | 29.0 | 27.0 - 34.0 pg | EXTERNAL | | | | | | LAB | | + + + + + + | MCHC | 34.2 | 32.0 - 35.5 | EXTERNAL | | | | | g/dL | LAB | | + + + + + + | RDW-CV | 40.7 | 37 - 53 fl | EXTERNAL | | | | | | LAB | | + + + + + + | Platelet | 158 | 150 - 400 K/uL | EXTERNAL | | | Count | | | LAB | | | Plasma | | | | | + + + + + + | MPV | 8.5 | fl | EXTERNAL | | | | | | LAB | | + + + + + + | Differentia | AUTOMATED | | EXTERNAL | | | l Type | | | LAB | | + + + + + + | % Segmented | 35.83 | % | EXTERNAL | | | | | | LAB | | | Neutrophils | | | | | + + + + + + | % | 45.20 | % | EXTERNAL | | | Lymphocytes | | | LAB | | + + + + + + | % Monocytes | 18.48 | % | EXTERNAL | | | | | | LAB | | + + + + + + | % | 0.16 | % | EXTERNAL | | | Eosinophils | | | LAB | | + + + + + + | % Basophils | 0.33 | % | EXTERNAL | | | | | | LAB | | + + + + + + | Absolute | 1.27 (L) | 1.90 - 7.40 | EXTERNAL | | | Segmented | | K/uL | LAB | | | Neutrophils | | | | | + + + + + + | Absolute | 1.60 | 1.00 - 3.90 | EXTERNAL | | | Lymphocytes | | K/uL | LAB | | + + + + + + | Absolute | 0.66 | 0.00 - 0.80 | EXTERNAL | | | Monocytes | | K/uL | LAB | | + + + + + + | Absolute | 0.01 | 0.00 - 0.50 | EXTERNAL | | | Eosinophils | | K/uL | LAB | | + + + + + + | Absolute | 0.01Comment: Testing | 0.00 - 0.10 | EXTERNAL | | | Basophils | performed at [facility], [address] | [address] | LAB | | | | [address], | | | | | | [place] [address] | | | | + + + + + + + + | Specimen | + + | Blood specimen | | (specimen) | + + + +---------+ + + | Performing | Address | City/State/Zipcode | Phone Number | | Organization | | | | + +---------+ + + | EXTERNAL LAB | | | | + +---------+ + + Phosphorus (06/30/2018 4:47 AM PST) + + + + + + | Component | Value | Ref Range | Performed | Pathologist | | | | | At | Signature | + + + + + + | PHOSPHORUS | 3.5Comment: Testing | 2.3 - 4.8 mg/dL | EXTERNAL | | | | performed at [facility], [address] | | LAB | | | | [address], | | | | | | [place] [address] | | | | + + + + + + + + | Specimen | + + | Blood specimen | | (specimen) | + + + +---------+ + + | Performing | Address | City/State/Zipcode | Phone Number | | Organization | | | | + +---------+ + + | EXTERNAL LAB | | | | + +---------+ + + Magnesium (06/30/2018 4:47 AM PST) + + + + + + | Component | Value | Ref Range | Performed | Pathologist | | | | | At | Signature | + + + + + + | Magnesium | 2.0Comment: Testing | 1.7 - 2.4 mg/dL | EXTERNAL | | | | performed at [facility], [address] | | LAB | | | | [address], | | | | | | [place] [address] | | | | + + + + + + + + | Specimen | + + | Blood specimen | | (specimen) | + + + +---------+ + + | Performing | Address | City/State/Zipcode | Phone Number | | Organization | | | | + +---------+ + + | EXTERNAL LAB | | | | + +---------+ + + Comprehensive Metabolic Panel (06/30/2018 4:47 AM PST) + + + + + + | Component | Value | Ref Range | Performed | Pathologist | | | | | At | Signature | + + + + + + | Na | 138 | 135 - 145 | EXTERNAL | | | | | mmol/L | LAB | | + + + + + + | K | 3.7 | 3.5 - 4.9 | EXTERNAL | | | | | mmol/L | LAB | | + + + + + + | Cl | 105 | 99 - 109 mmol/L | EXTERNAL | | | | | | LAB | | + + + + + + | CO2 | 25 | 23 - 32 mmol/L | EXTERNAL | | | | | | LAB | | + + + + + + | Anion Gap | 12 | 5 - 20 mmol/L | EXTERNAL | | | | | | LAB | | + + + + + + | Glucose, | 109 (H) | 65 - 99 mg/dL | EXTERNAL | | | Fasting | | | LAB | | + + + + + + | BUN | 20 | 8 - 25 mg/dL | EXTERNAL | | | | | | LAB | | + + + + + + | Creatinine | 0.9 | 0.70 - 1.30 | EXTERNAL | | | | | mg/dL | LAB | | + + + + + + | BUN/Creatin | 22 | | EXTERNAL | | | ine Ratio | | | LAB | | + + + + + + | Calcium | 8.8 | 8.5 - 10.5 | EXTERNAL | | | | | mg/dL | LAB | | + + + + + + | Protein, | 7.3 | 6.3 - 8.2 g/dL | EXTERNAL | | | Total | | | LAB | | + + + + + + | Albumin | 3.9 | 3.6 - 5.0 g/dL | EXTERNAL | | | | | | LAB | | + + + + + + | Globulin | 3.4 | 1.3 - 4.9 g/dL | EXTERNAL | | | | | | LAB | | + + + + + + | A/G Ratio | 1.1 | 1.0 - 2.4 | EXTERNAL | | | | | | LAB | | + + + + + + | Bilirubin | 0.8 | 0.1 - 1.5 mg/dL | EXTERNAL | | | Total | | | LAB | | + + + + + + | ALP, | 87 | 35 - 115 U/L | EXTERNAL | | | External | | | LAB | | + + + + + + | AST | 15 | 10 - 45 U/L | EXTERNAL | | | | | | LAB | | + + + + + + | ALT | 24 | 10 - 65 U/L | EXTERNAL | | | | | | LAB | | + + + + + + | Estimated | >60Comment: GFR <60: | mL/min/1.73m2 | EXTERNAL | | | GFR | CHRONIC KIDNEY DISEASE, | | LAB | | | | IF FOUND OVER [...] | | | | | performed at [facility], [address] | | | | | | [facility], | | | | | | [place] [address] | | | | + + + + + + + + | Specimen | + + | Blood specimen | | (specimen) | + + + +---------+ + + | Performing | Address | City/State/Zipcode | Phone Number | | Organization | | | | + +---------+ + + | EXTERNAL LAB | | | | + +---------+ + + Urinalysis, Reflex Microscopic and/or Culture (06/30/2018 4:23 AM PST) + + + + + + | Component | Value | Ref Range | Performed | Pathologist | | | | | At | Signature | + + + + + + | Color | YELLOW | | EXTERNAL | | | | | | LAB | | + + + + + + | Clarity, | CLEAR | | EXTERNAL | | | Urine | | | LAB | | + + + + + + | Specific | 1.026 | 1.002 - 1.030 | EXTERNAL | | | [place], | | | LAB | | | Urine | | | | | + + + + + + | Leukocyte | NEGATIVE | | EXTERNAL | | | Esterase, | | | LAB | | | Urine | | | | | + + + + + + | Nitrite, | NEGATIVE | | EXTERNAL | | | Urine | | | LAB | | + + + + + + | Urobilinoge | NORMAL | mg/dL | EXTERNAL | | | n, Urine | | | LAB | | + + + + + + | Protein, | NEGATIVE | mg/dL | EXTERNAL | | | Urine | | | LAB | | + + + + + + | pH, Urine | 5.0 | 5.0 - 8.0 | EXTERNAL | | | | | | LAB | | + + + + + + | Blood, | NEGATIVE | | EXTERNAL | | | Urine | | | LAB | | + + + + + + | Ketones | 20 (A) | mg/dL | EXTERNAL | | | | | | LAB | | + + + + + + | Bilirubin, | NEGATIVE | | EXTERNAL | | | Urine | | | LAB | | + + + + + + | Glucose, | NEGATIVEComment: Testing | mg/dL | EXTERNAL | | | Urine | performed at [facility] | | LAB | | | | [address];[place], [place] | | | | | | [address] | | | | + + + + + + + + | Specimen | + + | | + + + +---------+ + + | Performing | Address | City/State/Zipcode | Phone Number | | Organization | | | | + +---------+ + + | EXTERNAL LAB | | | | + +---------+ + + Troponin I (06/29/2018 11:43 PM PST) + + + + + + | Component | Value | Ref Range | Performed | Pathologist | | | | | At | Signature | + + + + + + | Troponin I, | <0.006Comment: 0.04 | 0.00 - 0.04 | EXTERNAL | | | Qual | ng/mL or less | ng/mL | LAB | | | | Negative, repeat | | | | | | testing in four to six | | | | | | hour if clinically | | | | | | indicted0.05 to 0.77 | | | | | | ng/mL | | | | | | Suspicious for | | | | | | myocardial injury. | | | | | | Serial measurements may | | | | | | be necessary to confirm | | | | | | or exclude the diagnosis | | | | | | of acute coronary | | | | | | syndrome. Repeat testing | | | | | | in four to six hours if | | | | | | indicated.0.78 or | | | | | | greater ng/mL | | | | | | Consistent with | | | | | | myocardial injury. | | | | | | Clinical and laboratory | | | | | | correlation recommended. | | | | | | NOTE NEW REFERENCE | | | | | | RANGETesting performed | | | | | | at [facility];[address];[place] [address] | | | | + + + + + + + + | Specimen | + + | Blood specimen | | (specimen) | + + + +---------+ + + | Performing | Address | City/State/Zipcode | Phone Number | | Organization | | | | + +---------+ + + | EXTERNAL LAB | | | | + +---------+ + + MRI Lumbar Spine wo Contrast (06/29/2018 10:27 PM PST) + + | Specimen | + + | | + + + + + | Impressions | Performed At | + + + | *Small left foraminal annular fissure and disc protrusion at L4-L5 | | | contacting the left L4 nerve root. Possible impingement of left L4 | | | nerve root. *Posterior central annular fissure and disc protrusion at | | | L5-S1. Annular fissure can cause discogenic pain. *Additional | | | findings as detailed above. Signed by: Med Armstrong Sign | | | Date/Time: 06/30/2018 7:20 AM | | + + + + + + | Narrative | Performed At | + + + | MRI LUMBAR SPINE WITHOUT CONTRAST CLINICAL INFORMATION: Back pain, | | | after left leg suddenly gave way. COMPARISON: CT dated Jun 29 2018, | | | MRI dated 07/12/2013. PROCEDURE: Sagittal T2, axial T2, sagittal T1, | | | axial T1, sagittal STIR sequences. Limitations: Motion artifacts. | | | FINDINGS: Alignment: Mild straightening of lumbar lordosis. No | | | listhesis. Vertebrae and vertebral marrow signal: Normal. Conus and | | | imaged portions of the caudal cord: The spinal cord terminates at L1. | | | Normal signal in visualized portion of the spinal cord. Fatty | | | filum terminal. Lumbar disc levels: T12-L1: No spinal canal or | | | neural foraminal stenosis. L1-L2: No spinal canal or neural foraminal | | | stenosis. L2-L3: No spinal canal or neural foraminal stenosis. | | | L3-L4: No spinal canal or neural foraminal stenosis. L4-L5: Disc | | | desiccation. Small left foraminal annular fissure and disc | | | protrusion contacting the left L4 nerve root, image 25/series 6. | | | Mild right neural foraminal stenosis pitted L5-S1: Disc | | | desiccation. Mild diffuse disc bulge. Posterior central annular | | | fissure and disc protrusion. Mild bilateral neural foraminal | | | stenosis. Paraspinal musculature and paravertebral soft tissues: | | | Normal visualized portions of both kidneys. No aortic aneurysm. | | | Small accessory left renal artery. | | + + + + + | Procedure Note | + + | Eric, Rad Conversion - 12/27/2018 7:02 PM PDT MRI LUMBAR SPINE WITHOUT CONTRAST | | CLINICAL INFORMATION: | | Back pain, after left leg suddenly gave way. | | COMPARISON: | | CT dated Jun 29 2018, MRI dated 07/12/2013. | | PROCEDURE: | | Sagittal T2, axial T2, sagittal T1, axial T1, sagittal STIR sequences. | | Limitations: Motion artifacts. | | FINDINGS: | | Alignment: Mild straightening of lumbar lordosis. No listhesis. | | Vertebrae and vertebral marrow signal: Normal. | | Conus and imaged portions of the caudal cord: The spinal cord | | terminates at L1. Normal signal in visualized portion of the spinal | | cord. Fatty filum terminal. | | Lumbar disc levels: | | T12-L1: No spinal canal or neural foraminal stenosis. | | L1-L2: No spinal canal or neural foraminal stenosis. | | L2-L3: No spinal canal or neural foraminal stenosis. | | L3-L4: No spinal canal or neural foraminal stenosis. | | L4-L5: Disc desiccation. Small left foraminal annular fissure and disc | | protrusion contacting the left L4 nerve root, image 25/series 6. Mild | | right neural foraminal stenosis pitted | | L5-S1: Disc desiccation. Mild diffuse disc bulge. Posterior central | | annular fissure and disc protrusion. Mild bilateral neural foraminal | | stenosis. | | Paraspinal musculature and paravertebral soft tissues: Normal | | visualized portions of both kidneys. No aortic aneurysm. Small | | accessory left renal artery. | | IMPRESSION: | | *Small left foraminal annular fissure and disc protrusion at L4-L5 | | contacting the left L4 nerve root. Possible impingement of left L4 | | nerve root. | | *Posterior central annular fissure and disc protrusion at L5-S1. | | Annular fissure can cause discogenic pain. | | *Additional findings as detailed above. | | Signed by: Med Armstrong | | Sign Date/Time: 06/30/2018 7:20 AM | + + MRI Brain wo Contrast (06/29/2018 10:16 PM PST) + + | Specimen | + + | | + + + + + | Impressions | Performed At | + + + | 1. No evidence of intracranial ischemia, heterotopia or mesial | | | temporal sclerosis. No mass effect, mass, or signal abnormality to | | | suggest cerebritis/edema 2. A few scattered foci of FLAIR bright | | | signal, likely representing a few foci of gliosis microvascular | | | disease 3. Bilateral mastoiditis or other infiltration Signed by: | | | Skyler Packer Sign Date/Time: 06/30/2018 8:08 AM | | + + + + + + | Narrative | Performed At | + + + | MRI BRAIN WITHOUT CONTRAST CLINICAL INFORMATION: Left leg suddenly | | | gave way. COMPARISON: None PROCEDURE: Sagittal T1, axial FLAIR, | | | axial T2, axial T1, axial gradient susceptibility, coronal T2, axial | | | DWI. FINDINGS: Brain: No intracranial hemorrhage. No midline shift | | | or pathologic mass effect. No cerebral edema, restricted diffusion, | | | or evidence of acute infarct. There are a few scattered foci of | | | FLAIR bright signal in supratentorial distributions, likely | | | microvascular disease or gliosis. Not uncommon findings Coronal | | | imaging the temporal lobe and mid brain demonstrate no evidence | | | sclerosis, no heterotopia, volume loss. No structural or signal | | | abnormality Symmetric hippocampal structure. Ventricles and | | | extra-axial fluid spaces: Normal. Sella, suprasellar cistern, and | | | orbits: Normal. Major vascular flow voids: Normal. Calvarium and | | | extracranial soft tissues: Normal. Paranasal sinuses and mastoid air | | | cells: Mucocele and mucosal thickening in the left maxillary sinus. | | | There is symmetric T2 bright infiltration in both mastoid | | | distributions. | | + + + + + | Procedure Note | + + | Eric, Rad Conversion - 12/27/2018 7:02 PM PDT MRI BRAIN WITHOUT CONTRAST | | CLINICAL INFORMATION: | | Left leg suddenly gave way. | | COMPARISON: | | None | | PROCEDURE: | | Sagittal T1, axial FLAIR, axial T2, axial T1, axial gradient | | susceptibility, coronal T2, axial DWI. | | FINDINGS: | | Brain: No intracranial hemorrhage. No midline shift or pathologic mass | | effect. No cerebral edema, restricted diffusion, or evidence of acute | | infarct. There are a few scattered foci of FLAIR bright signal in | | supratentorial distributions, likely microvascular disease or gliosis. | | Not uncommon findings | | Coronal imaging the temporal lobe and mid brain demonstrate no evidence | | sclerosis, no heterotopia, volume loss. No structural or signal | | abnormality | | Symmetric hippocampal structure. | | Ventricles and extra-axial fluid spaces: Normal. | | Sella, suprasellar cistern, and orbits: Normal. | | Major vascular flow voids: Normal. | | Calvarium and extracranial soft tissues: Normal. | | Paranasal sinuses and mastoid air cells: Mucocele and mucosal | | thickening in the left maxillary sinus. | | There is symmetric T2 bright infiltration in both mastoid distributions. | | IMPRESSION: | | 1. No evidence of intracranial ischemia, heterotopia or mesial | | temporal sclerosis. | | No mass effect, mass, or signal abnormality to suggest cerebritis/edema | | 2. A few scattered foci of FLAIR bright signal, likely representing a | | few foci of gliosis microvascular disease | | 3. Bilateral mastoiditis or other infiltration | | Signed by: Skyler Packer | | Sign Date/Time: 06/30/2018 8:08 AM | + + Troponin I (06/29/2018 8:41 PM PST) + + + + + + | Component | Value | Ref Range | Performed | Pathologist | | | | | At | Signature | + + + + + + | Troponin I, | <0.006Comment: 0.04 | 0.00 - 0.04 | EXTERNAL | | | Qual | ng/mL or less | ng/mL | LAB | | | | Negative, repeat | | | | | | testing in four to six | | | | | | hour if clinically | | | | | | indicted0.05 to 0.77 | | | | | | ng/mL | | | | | | Suspicious for | | | | | | myocardial injury. | | | | | | Serial measurements may | | | | | | be necessary to confirm | | | | | | or exclude the diagnosis | | | | | | of acute coronary | | | | | | syndrome. Repeat testing | | | | | | in four to six hours if | | | | | | indicated.0.78 or | | | | | | greater ng/mL | | | | | | Consistent with | | | | | | myocardial injury. | | | | | | Clinical and laboratory | | | | | | correlation recommended. | | | | | | NOTE NEW REFERENCE | | | | | | RANGETesting performed | | | | | | at [facility];[address] [place] [address] | | | | | | [address]vd;[place] [address] | | | | + + + + + + + + | Specimen | + + | Blood specimen | | (specimen) | + + + +---------+ + + | Performing | Address | City/State/Zipcode | Phone Number | | Organization | | | | + +---------+ + + | EXTERNAL LAB | | | | + +---------+ + + XR Chest 1 Vw (06/29/2018 4:09 PM PST) + + | Specimen | + + | | + + + + + | Impressions | Performed At | + + + | Negative chest. Signed by: Srinivasan Curry Date/Time: | | | 06/29/2018 4:14 PM | | + + + + + + | Narrative | Performed At | + + + | CHEST ONE VIEW CLINICAL INFORMATION: Chest pain COMPARISON: [facility] | | | ARM GUIDANCE (01/25/2014); C ARM GUIDANCE (11/02/2013); [facility] ARM | | | GUIDANCE (06/01/2013); FINDINGS: Heart, lungs and vessels normal. No | | | pneumothorax, pleural effusion or adenopathy. No significant bone | | | abnormality. | | + + + + + | Procedure Note | + + | El Reyes Conversion - 12/27/2018 7:02 PM PDT CHEST ONE VIEW | | CLINICAL INFORMATION: | | Chest pain | | COMPARISON: | | [facility] C ARM GUIDANCE (01/25/2014); [facility]A C ARM GUIDANCE (11/02/2013); [facility] C ARM | | GUIDANCE (06/01/2013); | | FINDINGS: | | Heart, lungs and vessels normal. No pneumothorax, pleural effusion or | | adenopathy. No significant bone abnormality. | | IMPRESSION: | | Negative chest. | | Signed by: Srinivasan Curry | | Sign Date/Time: 06/29/2018 4:14 PM | + + ECG 12 lead (06/29/2018 3:56 PM PST) + + + + + + | Component | Value | Ref Range | Performed | Pathologist | | | | | At | Signature | + + + + + + | DIAGNOSIS: | Normal sinus rhythm with | | EXTERNAL | | | | sinus | | LAB | | | | arrhythmiaIncomplete | | | | | | right bundle branch | | | | | | blockVoltage criteria | | | | | | for left ventricular | | | | | | hypertrophyNonspecific T | | | | | | wave | | | | | | abnormalityAbnormal | | | | | | ECGWhen compared with | | | | | | ECG of 30-JAN-2011 | | | | | | 15:01,Nonspecific T wave | | | | | | abnormality now evident | | | | | | in Inferior | | | | | | leadsNonspecific T wave | | | | | | abnormality now evident | | | | | | in Lateral leadsThis ECG | | | | | | contains Unconfirmed | | | | | | Interpretation | | | | | | Statements. See ED | | | | | | Record for Physician | | | | | | Interpretation. | | | | | | Confirmed by MUSE READ | | | | | | ONLY, -COMPUTER ([id number]), | | | | | | film editor supervisor Billy Ag | | | | | | [place] ([id number]) on 06/30/2018 | | | | | | 3:24:14 AM | | | | + + + + + + + + | Specimen | + + | | + + + + + | Narrative | Performed At | + + + | [facility] | EXTERNAL LAB | + + + + +---------+ + + | Performing | Address | City/State/Zipcode | Phone Number | | Organization | | | | + +---------+ + + | EXTERNAL LAB | | | | + +---------+ + + CT Lumbar Spine wo Contrast (06/29/2018 2:21 PM PST) + + | Specimen | + + | | + + + + + | Impressions | Performed At | + + + | *No acute fracture of the lumbar spine. *Mild lumbar spondylosis. | | | *Small (2 mm) nonobstructive bilateral renal stones. Signed by: | | | Med Armstrong Sign Date/Time: 06/29/2018 2:47 PM | | + + + + + + | Narrative | Performed At | + + + | CT LUMBAR SPINE WITHOUT CONTRAST CLINICAL INFORMATION: Back pain | | | after fall. COMPARISON: MRI dated 02/09/2014. PROCEDURE: Thin | | | section non-contrast axial sections through the lumbar spine. | | | Sagittal and coronal reformations were obtained from the axial | | | acquisition data. At least one of the following CT dose optimization | | | techniques were used: Automated exposure control; Adjustment of mA | | | and/or kV according to patient size; Use of iterative reconstruction | | | technique. FINDINGS: Alignment: Mild straightening of lumbar | | | lordosis. No listhesis Vertebrae: No acute fracture. Mild chronic | | | anterior wedging of L1 vertebral body, similar to MR dated | | | 02/09/2014. Lumbar Disc Levels: T12-L1: No spinal canal or neural | | | foraminal stenosis. L1-L2: No spinal canal or neural foraminal | | | stenosis pitted L2-L3: No spinal canal or neural foraminal stenosis. | | | L3-L4: No spinal canal or neural foraminal stenosis. L4-L5: Mildly | | | decreased intervertebral disc height. Mild diffuse disc bulge. | | | Mild spinal canal and mild bilateral neural foraminal stenosis. | | | L5-S1: Mild diffuse disc bulge. Small posterior central disc | | | protrusion. Mild bilateral neural foraminal stenosis pitted Facets | | | and Posterior Spinal Elements: No acute fracture. No pars defects. | | | Paravertebral Soft Tissues: Mild aortic atherosclerosis. No aortic | | | aneurysm. Small (2 mm) nonobstructive bilateral renal stones. The | | | index stone in lower pole of the left kidney measuring approximately | | | 2 mm, image 31/series 3. | | + + + + + | Procedure Note | + + | [place] Conversion - 12/27/2018 7:[address] LUMBAR SPINE WITHOUT CONTRAST | | CLINICAL INFORMATION: | | Back pain after fall. | | COMPARISON: | | MRI dated 02/09/2014. | | PROCEDURE: | | Thin section non-contrast axial sections through the lumbar spine. | | Sagittal and coronal reformations were obtained from the axial | | acquisition data. | | At least one of the following CT dose optimization techniques were | | used: Automated exposure control; Adjustment of mA and/or kV according | | to patient size; Use of iterative reconstruction technique. | | FINDINGS: | | Alignment: Mild straightening of lumbar lordosis. No listhesis | | Vertebrae: No acute fracture. Mild chronic anterior wedging of L1 | | vertebral body, similar to MR dated 02/09/2014. | | Lumbar Disc Levels: | | T12-L1: No spinal canal or neural foraminal stenosis. | | L1-L2: No spinal canal or neural foraminal stenosis pitted | | L2-L3: No spinal canal or neural foraminal stenosis. | | L3-L4: No spinal canal or neural foraminal stenosis. | | L4-L5: Mildly decreased intervertebral disc height. Mild diffuse disc | | bulge. Mild spinal canal and mild bilateral neural foraminal stenosis. | | L5-S1: Mild diffuse disc bulge. Small posterior central disc | | protrusion. Mild bilateral neural foraminal stenosis pitted | | Facets and Posterior Spinal Elements: No acute fracture. No pars | | defects. | | Paravertebral Soft Tissues: Mild aortic atherosclerosis. No aortic | | aneurysm. Small (2 mm) nonobstructive bilateral renal stones. The | | index stone in lower pole of the left kidney measuring approximately 2 | | mm, image 31/series 3. | | IMPRESSION: | | *No acute fracture of the lumbar spine. | | *Mild lumbar spondylosis. | | *Small (2 mm) nonobstructive bilateral renal stones. | | Signed by: Med Armstrong | | Sign Date/Time: 06/29/2018 2:47 PM | + + Sedimentation rate, automated (06/29/2018 1:26 PM PST) + + + + + + | Component | Value | Ref Range | Performed | Pathologist | | | | | At | Signature | + + + + + + | Sed Rate | 4Comment: Testing | 0 - 20 mm/Hr | EXTERNAL | | | | performed at [facility];[address] | | LAB | | | | [address];[place], [place] | | | | | | [address] | | | | + + + + + + + + | Specimen | + + | Blood specimen | | (specimen) | + + + +---------+ + + | Performing | Address | City/State/Zipcode | Phone Number | | Organization | | | | + +---------+ + + | EXTERNAL LAB | | | | + +---------+ + + External Lab: CBC (06/29/2018 1:26 PM PST) + + + + + + | Component | Value | Ref Range | Performed | Pathologist | | | | | At | Signature | + + + + + + | WBC | 4.66 | 3.80 - 11.00 | EXTERNAL | | | | | K/uL | LAB | | + + + + + + | Non- | 5.65 | 4.20 - 5.70 | EXTERNAL | | | Red Blood | | M/uL | LAB | | | Cells | | | | | | Counted | | | | | + + + + + + | Hemoglobin | 16.2 | 13.2 - 17.0 | EXTERNAL | | | | | g/dL | LAB | | + + + + + + | Hematocrit, | 47.9 | 39.0 - 50.0 % | EXTERNAL | | | POC | | | LAB | | + + + + + + | MCV | 84.8 | 80.0 - 100.0 fl | EXTERNAL | | | | | | LAB | | + + + + + + | MCH | 28.7 | 27.0 - 34.0 pg | EXTERNAL | | | | | | LAB | | + + + + + + | MCHC | 33.9 | 32.0 - 35.5 | EXTERNAL | | | | | g/dL | LAB | | + + + + + + | RDW-CV | 39.8 | 37 - 53 fl | EXTERNAL | | | | | | LAB | | + + + + + + | Platelet | 164 | 150 - 400 K/uL | EXTERNAL | | | Count | | | LAB | | | Plasma | | | | | + + + + + + | MPV | 8.3 | fl | EXTERNAL | | | | | | LAB | | + + + + + + | Differentia | AUTOMATED | | EXTERNAL | | | l Type | | | LAB | | + + + + + + | % Segmented | 74.18 | % | EXTERNAL | | | | | | LAB | | | Neutrophils | | | | | + + + + + + | % | 12.59 | % | EXTERNAL | | | Lymphocytes | | | LAB | | + + + + + + | % Monocytes | 12.87 | % | EXTERNAL | | | | | | LAB | | + + + + + + | % | 0.09 | % | EXTERNAL | | | Eosinophils | | | LAB | | + + + + + + | % Basophils | 0.27 | % | EXTERNAL | | | | | | LAB | | + + + + + + | Absolute | 3.46 | 1.90 - 7.40 | EXTERNAL | | | Segmented | | K/uL | LAB | | | Neutrophils | | | | | + + + + + + | Absolute | 0.59 (L) | 1.00 - 3.90 | EXTERNAL | | | Lymphocytes | | K/uL | LAB | | + + + + + + | Absolute | 0.60 | 0.00 - 0.80 | EXTERNAL | | | Monocytes | | K/uL | LAB | | + + + + + + | Absolute | 0.00 | 0.00 - 0.50 | EXTERNAL | | | Eosinophils | | K/uL | LAB | | + + + + + + | Absolute | 0.01Comment: Testing | 0.00 - 0.10 | EXTERNAL | | | Basophils | performed at [facility];[address] | K/uL | LAB | | | | [address];[place], [place] | | | | | | [address] | | | | + + + + + + + + | Specimen | + + | Blood specimen | | (specimen) | + + + +---------+ + + | Performing | Address | City/State/Zipcode | Phone Number | | Organization | | | | + +---------+ + + | EXTERNAL LAB | | | | + +---------+ + + C-Reactive Protein (06/29/2018 1:26 PM PST) + + + + + + | Component | Value | Ref Range | Performed | Pathologist | | | | | At | Signature | + + + + + + | CRP | <0.4Comment: Testing | mg/dL | EXTERNAL | | | | performed at [facility];[address] | | LAB | | | | [address];[place] | | | | | | [address] | | | | + + + + + + + + | Specimen | + + | Blood specimen | | (specimen) | + + + +---------+ + + | Performing | Address | City/State/Zipcode | Phone Number | | Organization | | | | + +---------+ + + | EXTERNAL LAB | | | | + +---------+ + + Valproic Acid Level (06/29/2018 1:26 PM PST) + + + + + + | Component | Value | Ref Range | Performed | Pathologist | | | | | At | Signature | + + + + + + | Date of | UNKNOWN | | EXTERNAL | | | Last Dose | | | LAB | | + + + + + + | Time of | UNKNOWN | | EXTERNAL | | | Last Dose | | | LAB | | + + + + + + | Valproic | <3 (L)Comment: Testing | 50 - 100 ug/mL | EXTERNAL | | | Acid Lvl | performed at [facility] | | LAB | | | | [address];[place], [place] | | | | | | [address] | | | | + + + + + + + + | Specimen | + + | Blood specimen | | (specimen) | + + + +---------+ + + | Performing | Address | City/State/Zipcode | Phone Number | | Organization | | | | + +---------+ + + | EXTERNAL LAB | | | | + +---------+ + + Comprehensive Metabolic Panel (06/29/2018 1:26 PM PST) + + + + + + | Component | Value | Ref Range | Performed | Pathologist | | | | | At | Signature | + + + + + + | Na | 146 (H) | 135 - 145 | EXTERNAL | | | | | mmol/L | LAB | | + + + + + + | K | 3.9 | 3.5 - 4.9 | EXTERNAL | | | | | mmol/L | LAB | | + + + + + + | Cl | 108 | 99 - 109 mmol/L | EXTERNAL | | | | | | LAB | | + + + + + + | CO2 | 26 | 23 - 32 mmol/L | EXTERNAL | | | | | | LAB | | + + + + + + | Anion Gap | 16 | 5 - 20 mmol/L | EXTERNAL | | | | | | LAB | | + + + + + + | Glucose, | 106 (H) | 65 - 99 mg/dL | EXTERNAL | | | Fasting | | | LAB | | + + + + + + | BUN | 21 | 8 - 25 mg/dL | EXTERNAL | | | | | | LAB | | + + + + + + | Creatinine | 1.10 | 0.70 - 1.30 | EXTERNAL | | | | | mg/dL | LAB | | + + + + + + | BUN/Creatin | 19 | | EXTERNAL | | | ine Ratio | | | LAB | | + + + + + + | Calcium | 9.6 | 8.5 - 10.5 | EXTERNAL | | | | | mg/dL | LAB | | + + + + + + | Protein, | 7.3 | 6.3 - 8.2 g/dL | EXTERNAL | | | Total | | | LAB | | + + + + + + | Albumin | 5.0 | 3.6 - 5.0 g/dL | EXTERNAL | | | | | | LAB | | + + + + + + | Globulin | 2.3 | 1.3 - 4.9 g/dL | EXTERNAL | | | | | | LAB | | + + + + + + | A/G Ratio | 2.2 | 1.0 - 2.4 | EXTERNAL | | | | | | LAB | | + + + + + + | Bilirubin | 1.0 | 0.1 - 1.5 mg/dL | EXTERNAL | | | Total | | | LAB | | + + + + + + | ALP, | 93 | 35 - 115 U/L | EXTERNAL | | | External | | | LAB | | + + + + + + | AST | 20 | 10 - 45 U/L | EXTERNAL | | | | | | LAB | | + + + + + + | ALT | 16 | 10 - 65 U/L | EXTERNAL | | | | | | LAB | | + + + + + + | Estimated | >60Comment: GFR <60: | mL/min/1.73m2 | EXTERNAL | | | GFR | CHRONIC KIDNEY DISEASE, | | LAB | | | | IF FOUND OVER [...] | | | | | performed at [facility];[address] | | | | | | [address];[place], [place] | | | | | | [address] | | | | + + + + + + + + | Specimen | + + | Blood specimen | | (specimen) | + + + +---------+ + + | Performing | Address | City/State/Zipcode | Phone Number | | Organization | | | | + +---------+ + + | EXTERNAL LAB | | | | + +---------+ + + documented in this encounter Visit Diagnoses + + | Diagnosis | + + | Seizures (HCC) Other convulsions | + + | Chest pain, unspecified type | + + | Fall, initial encounter | + + | Strain of lumbar region, initial encounter | + + | HIV (human immunodeficiency virus infection) (HCC) Asymptomatic human | | immunodeficiency virus (HIV) infection status | + + | Lumbosacral pain Lumbago | + + | Lumbar radicular syndrome Thoracic or lumbosacral neuritis or radiculitis, | | unspecified | + + documented in this encounter
--- OUTSIDE RECORDS SUMMARY | ~2019-11-25 | XMS | Encounter Summary ---
Demographics + + + | Address | [address] | | | [place] [address] | + + + | Home Phone [...] | [facility] | + + + | [...] [place] | | | | | [address] | | + + + + + Care Team Providers + +------+ + | Care Peanut Sheller Name | Role | Phone | + +------+ + PCP | Unavailable | + +------+ + Reason for Visit + + + | Reason | Comments | + + + | Change of medication | | + + + Encounter Details +--------+ + + + + | Date | Type | Department | Care Team | Description | +--------+ + + + + | 02/27/ | Telephone | [facility] Primary Care | Fred | Change of medication | | 2016 | | at [facility] | MD Caio | | | | | [address] | [address] | | | | | Loop Physician's | [address] [facility], | | | | | [place], 3rd floor | [place] [address] | | | | | [place], [place] | [phone] | | | | | [address] | | | | | | [phone] | | | +--------+ + + + [...]
--- OUTSIDE RECORDS SUMMARY | ~2019-11-25 | XMS | Encounter Summary ---
Demographics + + + | Address | [address] | | | [place] [address] | + + + | Home Phone [...] | On License Of [facility] | + + + | Organization [...] [place] | | | | | [address] | | + + + + + Care Team Providers + +------+ + | Care Child Care Name | Role | Phone | + [...] | | | | 3rd floor | [place], [place] | | | | | | [place], [place] | [address] | | | | | | [address] | Phone: | | | | | | Phone: | [phone] | | | | | | [phone] | Fax: | | | | | | Fax: | [phone] | | | | | | [phone] | | +--------+--------+ + + + + Encounter Details +--------+---------+ + + + | Date | Type | Department | Care Team | Description | +--------+---------+ + + + | 02/06/ | Office | [facility] Primary Care | Fred | Hepatitis B virus | | 2015 | Visit | at [facility] | MD Caio | infection, | | | | [address] | [address] | unspecified | | | | Loop Physician's | [facility], | chronicity (Primary | | | | Pavilion, 3rd floor | [place] [address] | Dx); HIV (human | | | | [place], [place] | [phone] | immunodeficiency | | | | [address] | | virus infection) | | | | [phone] | | (HCC); Convulsions, | | | [...] primary care provider closer to you in [facility] Please get labs done today Hold on [...] He reports he is engaged with the [facility] ([facility]) for case management assistance and was in contact with them this morning. Pharmacies used: [facility] ([facility], ) and [facility] ([facility], ). Medications Bradley has with him today: [...] plan to check HIV resistance studies (RT, NV, and InSTI) and Hep C viral load [...] y.o. HIV infected male who presents to [facility] care. Ivan reports he was [...] provider to better help Bradley with his jail medical care. 1. HIV (human immunodeficiency virus [...] health specialist closer to his home in [facility] 5. Essential hypertension -uncontrolled, but has been off of his medications - urged to restart his ARB - To follow at next visit. - STAFF TO GIVE: PREVNAR 13-VALENT I asked patient during visit to return to clinic in 4 weeks for routine follow up, sooner if acute issue arises. I spent 55 minutes [id number] with the patient of which greater than [...] + + + + + | [facility] | [address] | [place] [address] | | | SERVICES, CORE | PARK [...] + | [facility] - | [address] | [place] [address] | | | [place] | | | [...] + + + + | [facility] | [address] | [place] [address] | | | DIAGNOSTIC | [address] [...] + | [facility] - | [address] | [place] [address] | | | [place] | | | [...] + | [facility] - | [address] | [place] [address] | | | [place] | | | | + + + [...] LAB | | | | [place], [place] | | | | | | [address] | | | | + + + [...] [facility] | [address] | [place] [address] | | | RADHA, ARELIS | FRANKY [...] + + + | HIV-QNT PCR | [address]125 (A)Comment: Result | Undetected | SEKIU | | | | in log copies/mL [...] 2.0 | | | | | | ([employer] | | | | | | [employer] Test | | | | | | Performed by: [place] | | | | | | [facility] | | | | | | [facility] | | | | | | [address], | | | | | | [place] [address] | | | | | | Silver Miner: | | | | | | Clemente [...] viral load > or = 500. | [facility] | | | LAB[facility] | + + + + + + + + | Performing | Address | City/State/Zipcode | Phone Number | | Organization | | | | + + + + + | [facility] | [address] | [place], [place] | | | LAB[facility] | [place] | [address] | | + + + + + [...] | + + + + + | [facility] | [address] | [place] [address] | | | SERVICES, CORE | FRANKY [...] by | | | | | | [employer],[address] | | | | | | [place], [facility],[place] | | | | | | [address] | | | | | | [phone]. | | | | | | Patrice [...] [facility] | [address] | [place], [place] | | | [facility] | | [address] | | + + + + + [...] | | | LABORATORY | | | [facility] | | | SERVICES, | | | [...] the MDRD equation recommended by the | [facility] | | National Kidney Disease Education Program. [...] | + + + + + | [facility] | [address] | [place] [id number] | | | SERVICES, CORE | PARK [...] LABORATORY | | performance characteristics determined by [facility] [employer]. It has | SERVICES, | | not [...] + + + + + | [facility] | [address] | [place] [address] | | | SERVICES, SPECIAL | PARK [...] [facility] | [address] | [place] [address] | | | SERVICES, CORE | FRANKY [...]
--- OUTSIDE RECORDS SUMMARY | ~2019-11-25 | XMS | Encounter Summary ---
Demographics + + + | Address | [address] | | | [place] [address] | + + + | Home Phone | | + + + | Preferred Language | Unknown | + + + | Marital Status | Unmarried Domestic Partner | + + + | Yazidi Affiliation | NON | + + + | Race | White | + + + | Ethnic Group | Not or | + + + Author + + + | Author | [facility] | + + + | Organization | [facility] | + + + | Address | Unknown | + + + | Phone | Unavailable | + + + Support + + + + + | Name | Relationship | Address | Phone | + + + + + | Gabriel Greenberg | ECON | [address] | | | | | [place] | | | | | [address] | | + + + + + Care Team Providers + +------+ + | Care Pharmacist Apprentice Name | Role | Phone | + [...] Order | | 2017 | | at [facility] | MD Caio | | | | | [address] | [address] | | | | | Loop Physician's | [place] [facility], | | | | | [place], 3rd floor | [place] [address] | | | | | [place], [place] | [phone] | | | | | [address] | | | | | | [phone] | | | +--------+ + + + [...] | | | AT,GLUC,CA,AST,ALT,B | | | ([facility]) | | | TORIBIO TOTAL,ALK | | [...]
--- OUTSIDE RECORDS SUMMARY | ~2019-11-25 | XMS | Encounter Summary ---
Demographics + + + | Address | [address] | | | [place] [address] | + + + | Home Phone | | + + + | Preferred Language | Unknown | + + + | Marital Status | Unmarried Domestic Partner | + + + | Anglican Affiliation | NON | + + + | Race | White | + + + | Ethnic Group | Not or | + + + Author + + + | Author | [facility] | [...] [place] | | | | | [address] | | + + + + + Care Team Providers + +------+ + | Care Director Human Services Name | Role | Phone | + [...] | | | [address] | [place], [place] | | | | | [place], | [address] | | | | | 4th floor [place], | [phone] | | | | | [place] [address] | | | | | | [phone] | | | +--------+ + + + [...]
--- OUTSIDE RECORDS SUMMARY | ~2019-11-25 | XMS | Encounter Summary ---
Demographics + + + | Address | [address] | | | [place] [address] | + + + | Home Phone | | + + + | Preferred Language | Unknown | + + + | Marital Status | | + + + | Hinduism Affiliation | 1013 | + + + | Race | Unknown | + + + | Ethnic Group | Unknown | + + + Author + + + | Author | [facility] | | | and [place] | + + + | Organization | [facility] | | [...] [place] | | | | | [address] | | + + + + + Care Team Providers + +------+ + | Care Care Professional Name | Role | Phone | + +------+ + PCP | Unavailable | + +------+ + Encounter Details +--------+ + + + + | Date | Type | Department | Care Team | Description | +--------+ + + + + | 05/24/ | Emergency | [facility] | Dave Cano, | Injury, Other and | | 2009 | | MEDICAL CENTER | MD [address] | Unspecified, | | | | EMERGENCY CENTER | [place] [address] | Shoulder and Upper | | | | [address] | [phone] | Arm | | | | [place], [place] | | | | | | [address] | | | | | | [phone] | | | +--------+ + + + [...] [place] | | | | | | [address] | | | | | | | | +--------+---------+ + + + documented as of this encounter Procedures + +--------+ + + + | Procedure Name | Priori | Date/Time | Associated Diagnosis | Comments | | | ty | | | | + +--------+ + + + | XR SHOULDER LEFT 2 + | Routin | 05/24/2009 | | Results for this | | VW | e | 3:38 PM | | procedure are in the | | | | PST | | results section. | + +--------+ + + + documented in this encounter Results XR Shoulder Left 2 + Vw (05/24/2009 3:38 PM PST) + + | Specimen | + + | | + + + + + | Narrative | Performed At | + + + | [facility] | | | [facility] [address] | | | , | | | [id number]/RADIOLOGY Patient Name: MICHAEL CHAVEZ Date of : | | | 1965 Medical Record: [id number] Account: [id number] | | | EMR/ED Y04 1/ Exam Date/Time: 05/24/2009 | | | 03:13 P Ordering Provider: DAVE CANO Detail: 7370 | | | / / HDI Exam Description: XR SHOULDER LEFT | | | | | | SHOULDER LEFT 05/24/2009 HISTORY Shoulder injury. TECHNIQUE | | | Two views, left shoulder. COMPARISON No prior study for | | | comparison. FINDINGS There is no malalignment. No proven | | | fracture. There may be some soft tissue fullness about the proximal | | | humerus, but there is no dislocation or dense abnormality in the soft | | | tissues. There is a fairly abrupt levoconvex curvature of the | | | upper thoracic spine. The chronicity and significance of this is | | | unclear. IMPRESSION 1. No proven fracture. 2. Fairly abrupt | | | levoconvex curvature of the upper thoracic spine. Would correlate | | | with dedicated imaging if there is a concern for injury there or | | | active process. Read by CORTES CONTE MD 05/24/2009 | | | 04:30 P Electronically Signed by CORTES CONTE MD 05/24/2009 | | | 10:40 P P P | | | TSG/[email or web address]/[id number]/ cc: PEDRO JACOBSEN MD PHYSICIAN ED | | | MD DAVE BHATT MD | | + + + + + | Procedure Note | + + | El Reyes - 01/08/2019 4:04 PM PDT | | [facility] | | [facility] [address] | | , | | | | [id number]/RADIOLOGY | | | | Patient Name: MICHAEL CHAVEZ | | Date of : 1965 | | Medical Record: [id number] | | Account: [id number] | | EMR/ED Y04 1/ | | | | | | Exam Date/Time: 05/24/2009 03:13 P | | Ordering Provider: DAVE CANO | | Order Detail: 7370 / / HDI | | Exam Description: XR SHOULDER LEFT | | | | SHOULDER LEFT 05/24/2009 | | | | HISTORY | | Shoulder injury. | | | | TECHNIQUE | | Two views, left shoulder. | | | | COMPARISON | | No prior study for comparison. | | | | FINDINGS | | There is no malalignment. No proven fracture. There may be some soft | | tissue fullness about the proximal humerus, but there is no dislocation | | or dense abnormality in the soft tissues. | | | | There is a fairly abrupt levoconvex curvature of the upper thoracic | | spine. The chronicity and significance of this is unclear. | | | | IMPRESSION | | 1. No proven fracture. | | 2. Fairly abrupt levoconvex curvature of the upper thoracic spine. Would | | correlate with dedicated imaging if there is a concern for injury | | there or active process. | | | | | | | | Read by | | CORTES CONTE MD 05/24/2009 04:30 P | | Electronically Signed by | | CORTES CONTE MD 05/24/2009 10:40 P | | | | P | | P | | [facility]/[email or web address]/[id number]/ | | cc: PEDRO JACOBSEN MD | | PHYSICIAN ED | | CORTES CONTE MD | | DAVE CANO MD | + + documented in this encounter Visit Diagnoses + + | Diagnosis | + + | Injury, other and unspecified, shoulder and upper arm | + + documented in this encounter"
--- OUTSIDE RECORDS SUMMARY | ~2019-11-25 | XMS | Encounter Summary ---
Demographics + + + | Address | [address] | | | [place] [address] | + + + | Home Phone | | + + + | Preferred Language | Unknown | + + + | Marital Status | | + + + | Evangelical Affiliation | 1013 | + + + | Race | Unknown | + + + | Ethnic Group | Unknown | + + + Author + + + | Author | [facility] | | | and [place] | + + + | Organization | [facility] | | [...] [place] | | | | | [address] | | + + + + + Care Team Providers + +------+ + | Care Drop Wire Operator Name | Role | Phone | + +------+ + | Jax Cabrera MD | PCP | | + +------+ + Reason for Visit + +--------+ + | Reason | Onset | Comments | | | Date | | + +--------+ + | Advice Only | 10/12/ | Mobility Issue | | | 2019 | | + +--------+ + Encounter Details +--------+ + + + + | Date | Type | Department | Care Team | Description | +--------+ + + + + | 10/12/ | Telephone | [facility] | Skyler Dong, | Advice Only | | 2020 | | [facility] | MD [address] | (Mobility Issue) | | | | [address] | | | | | [address] | [place] [address] | | | | | [place], [place] | [phone] | | | | | [address] | | | | | | [phone] | | | +--------+ + + + [...] Miscellaneous Notes Telephone Encounter - Thelma Subramanian, Process Development Associate - 10/16/2019 4:02 PM PDTSpoke wi th patient and he reports over the last 3 weeks his mobility in his legs has worsened. He re ports his legs giving out and falling. He fell into a tree about a week ago which is now cau sing left leg numbing and shooting pains. Also left shoulder has begun swelling and is now d ropping items. He reports not even seeing or knowing who or where is new PCP is located. I b ooked him for a follow up with Deyvi for 10/23 @ 0945am _ I also reminded him that we are not quite back to scheduling procedures at this time- He voiced understanding. Electronically s igned by Thelma Subramanian, Process Development Associate at 10/16/2019 4:10 PM PDTTelephone Encounter - Zoë Marroquin - 10/16/2019 2:39 PM PDTRandall, is returning call for Advice Only (Mobili ty Issue) and would like a call back. Additional Call Details: Returning call regarding the mobility issues. Please call back at the mobile number. Was not able to reach MA or Nurse. elephone Encounter - Estelle Wynne Process Development Associate - 10/13/2019 2:04 PM PDTReturned pt's phone call and LVM.E lectronically signed by Mariana De at 10/13/2019 2:07 PM PDTTelephon e Encounter - Ronna Serna - 10/13/2019 1:59 PM PDTRandy, is calling again for Advice O nly (Mobility Issue) and would like a call back. Additional Call Details: Requesting call back regarding missed call from Estelle. Please c ontact mobile number listed elephone Encounter - Estelle Wynne Process Development Associate - 10/13/2019 1:37 PM PDTLVM to patient to call us back .El ectronically signed by Mariana De at 10/13/2019 1:38 PM PDTTelephone Encounter - Ronna Serna - 10/13/2019 12:35 PM PDTRandy, is returning call for Advice O nly (Mobility Issue) and would like a call back. Additional Call Details: Requesting call back regarding missed call from Estelle. Please c ontact mobile number listed. elephone Encounter - Estelle Wynne, Process Development Associate - 10/13/2019 11:40 AM PDTLVM to pt stating he can call us u s back when he receives the message left call back number. elephone Encounter - Zoë Marroquin - 10/13/2019 11:02 AM PDTRandagilbert, is calling regarding Advice Only (Mobility Issue) and would like a call back. Additional Call Details: Patient called stating that he has been having trouble with mobil ity in his left arm and leg. States he has been experiencing a lot of pain in his left side from his shoulder to his ankle. Was not able to reach Nurse of [place]. Please call back at the m obile number. If this is a symptom based call, was patient offered triage? Yes, no one took call If this is a symptom based call and you were unable to immediately transfer the call to a p [facility] administrator was caller made aware that if at any time he feels it is an emergency they alec uld call 911 or go to the nearest emergency room? yes documented in this encounter Plan of Treatment [...] [place] | | | | | | [address] | | | | | | | | +--------+---------+ + + + documented as of this encounter Visit Diagnoses Not on filedocumented in this encounter"
--- OUTSIDE RECORDS SUMMARY | ~2019-11-25 | XMS | Encounter Summary ---
Demographics + + + | Address | [address] | | | [place] [address] | + + + | Home Phone [...] + + | Author | [facility] | + + + | Organization | [facility] | + + + | Address | Unknown | + + + | Phone | Unavailable | + + + Support + + + + + | Name | Relationship | Address | Phone | + + + + + | Gabriel Greenberg | ECON | [address] | | | | | [place] | | | | | [address] | | + + + + + Care Team Providers + +------+ + | Care Accounting Technician Name | Role | Phone | [...] + + | 02/26/ | Telephone | [facility] | Fred, | Other (Please call | | 2017 | | at [facility] | MD Caio | patient with his lab | | | | [address] | [address] | results ) | | | | [address] | [address] [place] [address], | | | | | [place], [address] floor | [place] [address] | | | | | [place], [place] | [phone] | | | | | [address] | | | | | | [phone] | | | +--------+ + + + [...]
--- OUTSIDE RECORDS SUMMARY | ~2019-11-25 | XMS | Encounter Summary ---
Demographics + + + | Address | [address] | | | [place] [address] | + + + | Home Phone | | + + + | Preferred Language | Unknown | + + + | Marital Status | Unmarried Domestic Partner | + + + | Uatsdin Affiliation | NON | + + + | Race | White | + + + | Ethnic Group | Not or | + + + Author + + + | Author | [facility] | + + + | Organization | [facility] | + + + [...] [place] | | | | | [address] | | + + + + + Care Team Providers + +------+ + | Care Laborer Steel Handling Name | Role | Phone | + +------+ + | Jax Cabrera MD | PCP | | + +------+ + Encounter Details +--------+ + + + + | Date | Type | Department | Care Team | Description | +--------+ + + + + | 04/30/ | Document-Sc | Health Information | Unknown . | | | 2016 | anned | Services [id number] | | | | | | [address] | | | | | | Mailcode: OP17A | | | | | | [facility] | | | | | | [place], [place] | | | | | | [address] | | | | | | [phone] | | | +--------+ + + + [...]
--- OUTSIDE RECORDS SUMMARY | ~2019-11-25 | XMS | Encounter Summary ---
Demographics + + + | Address | [address] | | | [place] [address] | + + + | Home Phone | | + + + | Preferred Language | Unknown | + + + | Marital Status | | + + + | Religion Affiliation | 1013 | + + + [...] [place] | | | | | [address] | | + + + + + Care Team Providers + +------+ + | Care Roving Court Reporter Name | Role | Phone | + +------+ + | Jax Cabrera MD | PCP | | + +------+ + Reason for Visit + + + | Reason | Comments | + + + | Back Pain | | + + + Encounter Details +--------+---------+ + + + | Date | Type | Department | Care Team | Description | +--------+---------+ + + + | 06/29/ | Office | [facility] | Deyvi Kovacs, | Cervical radicular | | 2019 | Visit | [facility] | STOCK DIGGER [address] | pain (Primary Dx); | | | | [address] | Degenerative lumbar | | | | [address] | [place] [address] | spinal stenosis; | | | | [place], [place] | [phone] | Lumbar herniated | | | | [address] | | disc; Sacroiliac | | | | [phone] | | joint pain; Lumbar | | | | | | radicular pain; | | | | | | Degeneration of | | | | | | intervertebral disc | | | | | | of cervical region | +--------+---------+ + + + Social History [...] + + + | Blood Pressure | 187/123 | 06/29/2019 1:38 PM | | | | | PST | | + + + + + | Pulse | 80 | 06/29/2019 1:38 PM | | | | | PST [...] + + | Weight | 75.3 kg (166 lb) | 06/29/2019 1:38 PM | | | | | PST | | + + + + + | Height | 167.6 cm (5' 6") | 06/29/2019 1:38 PM | | | | | PST | | + + + + + | Body Mass Index | 26.79 | 06/29/2019 1:38 PM | | | | | PST | | + + + + + documented in this encounter Progress Carlos Gomezis M, STOCK DIGGER - 06/29/2019 2:25 PM PST He rates his pain at its worst a 10/10, at its least a 8/10, on average a 7/10 and is cur rently a 10/10. Oswestry Disability Index (RAAD): Total Score 33 (06/29/19 1338) Percentage 73.33 (06/29 1338) Oswestry Neck Disability Index (NDI): Total Score Percentage Subjective: Chief Complaint: Back Pain Patient ID: Ivan Giles is a 53 y.o. male HPI Ivan Giles is a 53 y.o. male who presents today with with a long history of neck and back pain. He is well-known to the clinic and has undergone multiple injections with Dr. Kunal hackett for both. His low back pain is his biggest complaint today and is radiating to the r ight buttock and lateral thigh, generally following the L5 dermatomal distribution. He has fallen twice in the last 30 days and is having severe pain and weakness in the right low luann k and leg. His cervical radicular symptoms are also beginning to return and he is experienc ing pain in bilateral superior shoulders, scapula and numbness and tingling in all 10 digits of both hands. He reports good relief of his radicular symptoms from lumbar and cervical e pidural steroid injections. He denies red flag symptoms. He is here to discuss repeating i njections. Conservative therapies tried and helped include at [...] for difficulty urinating. Musculoskeletal: Positive for back pain and myalgias. Negative for joint swelling. Skin: Negative for rash. Neurological: Positive for numbness. Negative for dizziness. Hematological: Does not bruise/bleed easily. Psychiatric/Behavioral: Positive for sleep disturbance. The patient is nervous/anxious. All other systems reviewed and are negative. Objective: BP (!) 187/123 | Pulse 80 | Ht 1.676 m (5' 6") | Wt 75.3 kg (166 lb) | BMI 26.79 kg/m Physical Exam Constitutional: He is oriented [...] Cervical: Axial mechanical cervical pain upon exam. Myofascial tightness and tenderness in the musculature surrounding the cervical spine and upper thoracic regions. Lumbar: Axial mechanical lumbar pain upon exam. Myofascial tightness and tenderness in the right lumbar spine with palpable/ropey tendons at about L4-L5. Right greater than left sac roiliac joint tenderness to palpation. Motor: 5-/5 left hand grasps, 5/5 throughout remaining bilateral upper extremities. 5-/5 right KE, KF 5/5 throughout remaining bilateral lower extremities. Sensory: Creased in the right L5 dermatomal distribution as compared to the left. Decrease d in the right C6 and C7 dermatomal distributions as compared to the left. Assessment and Plan: 1. Cervical radicular pain 2. Degenerative lumbar spinal stenosis 3. Lumbar herniated disc 4. Sacroiliac joint pain 5. Lumbar radicular pain 6. Degeneration of intervertebral disc of cervical region No orders of the defined types were placed in this encounter. No orders of the defined types were placed in this encounter. Ivan Giles is a 53 y.o. male who presents today with with a long history of neck and back pain. He is well-known to the clinic and has undergone multiple injections with Dr. Kunal hackett for both. His low back pain is his biggest complaint today and is radiating to the r ight buttock and lateral thigh, generally following the L5 dermatomal distribution. He has fallen twice in the last 30 days and is having severe pain and weakness in the right low luann k and leg. His cervical radicular symptoms are also beginning to return and he is experienc ing pain in bilateral superior shoulders, scapula and numbness and tingling in all 10 digits of both hands. He reports good relief of his radicular symptoms from lumbar and cervical e pidural steroid injections. He denies red flag symptoms. He is here to discuss repeating i njections For his low back pain: Lumbar MRI shows lateral recess narrowing on the right at L4-L5 and a far lateral disc protrusion that could be affecting the exiting right L5 nerve root at L5- S1 which is consistent with his symptoms. He is therefore a candidate for a caudal with cat heter epidural steroid injection targeting the right L4, L5 and S1 nerve roots under fluoros copy. For his neck pain: Cervical MRI shows severe multilevel degenerative facet arthropathy and neuroforaminal stenosis with likely impingement of multiple nerve roots which is consistent of his symptoms. He is therefore a candidate for a C6-C7 cervical epidural steroid injectio n under fluoroscopy. Plan, alternatives, risks and potential [...] to infection, abscess, hematoma, nerve damag e, paraplegia or quadriplegia, increased pain, spinal headache, stroke, and side effects fro m the medications themselves. The patient wishes to proceed. These injections will be performed about 3 weeks apart. If he continues to have severe lum bosacral pain will consider repeating the SI injections which have also been quite beneficia l. Ample time was given for questions. The patient was strongly encouraged to follow-up wi th the physician that is managing his blood pressure medications as his blood pressure is qu ite elevated at this visit. He verbalized understanding. All of the questions were answere d to the patient's satisfaction. The patient was encouraged to use proper body mechanics to avoid increased pain, continue heat/cold therapy, home exercises, and medications as prescr ibed. The patient is in agreement with the plan. The following portions of the patient's histories were reviewed and updated as appropriate and is available elsewhere in the chart: Allergies, current medications, past family history , past medical history, past surgical history, past surgical history and problem list. LEIA Martinez has created this entry using [employer] and [employer] macros. The entry has been reviewed and there may still exist sound alike word errors. P STdocumented in this encounter Plan of Treatment +--------+---------+ + + + | Date | Type | Specialty | Care Team | Description | +--------+---------+ + + + | 12/05/ | Office | Pain Medicine | Vitaliy Mendoza, | | | 2019 | Visit | | DO [address] | | | | | | [place] | | | | | | [id number] | | | | | | | | +--------+---------+ + + + documented as of this encounter Visit Diagnoses + + | Diagnosis | + + | Cervical radicular pain - Primary Brachial neuritis or radiculitis nos | + + | Degenerative lumbar spinal stenosis Spinal stenosis, lumbar region, without | | neurogenic claudication | + + | Lumbar herniated disc Displacement of lumbar intervertebral disc without myelopathy | + + | Sacroiliac joint pain Disorders of sacrum | + + | Lumbar radicular pain Thoracic or lumbosacral neuritis or radiculitis, unspecified | + + | Degeneration of intervertebral disc of cervical region | + + documented in this encounter
--- OUTSIDE RECORDS SUMMARY | ~2019-11-25 | XMS | Encounter Summary ---
Demographics + + + | Address | [address] | | | [place] [address] | + + + | Home Phone | | + + + | Preferred Language | Unknown | + + + | Marital Status | Unmarried Domestic Partner | + + + | Baptist Affiliation | NON | + + + | Race | White | + + + | Ethnic Group | Not or | + + + Author + + + | Author | [facility] | + [...] [place] | | | | | [address] | | + + + + + Care Team Providers + +------+ + | Care Livestock Trader Name | Role | Phone | + [...] + + | 02/27/ | Telephone | [facility] | Fred | Change of medication | | 2016 | | at [facility] | MD Caio | | | | | [address] | [address] | | | | | [address] | [address] [facility], | | | | | [place], [address]rd floor | [place] [address] | | | | | [place], [place] | [phone] | | | | | [address] | | | | | | [phone] | | | +--------+ + + + [...]
[~2019-11-25 18:12] MED LIST changes: +METHYLPREDNISOLO4 M1 PO
--- OUTSIDE RECORDS SUMMARY | 2019-11-25 18:18 | XMS ---
PreManage Notification: MICHAEL CHAVEZ Security Lumber Handler Events No recent Security Events currently on file CRITERIA MET - Group Notification - [facility] - Has Care Guidelines - PDMP CARE PROVIDERS There are no care providers on record at this time. Raymundo has no Care Guidelines for this patient. Care History Medical/Surgical 12/01/2018 [facility] - PATIENT HAS A NEURO INTERVENTIONAL SPECIALIST AT [facility]- DR CHOWDARY. 01/31/2018 [facility] - CHW is unable to contact patient on patient friends phone number provided. - Please have patient provide an update on contact information. - Or provide CHW contact Katy [phone] so CHW can help patient connect to community resources. 01/25/2018 [facility] Care Recommendation: - USE EXTREME CAUTION [...] care. E.D. VISIT COUNT (12 MO.) 2 [facility] 1 [facility] 2 [facility]. TOTAL 5 NOTE: Visits indicate total known visits. ED/UCC VISIT TRACKING (12 MO.) 11/25/2019 18:15 JOSE CARLOS [facility] TYPE: Emergency COMPLAINT: - HEAD INJURY/LACERATION [facility]2019 [facility] [place] [facility] DIAGNOSES: - Seizure (Adult - Prior Hx Of) - Other chronic pain - Low back pain - Unspecified convulsions - Lumbago with sciatica, left side - Lumbago with sciatica, right side - Back Pain [facility]2018 [facility] DIAGNOSES: - right elbow injury - Elbow Injury - Unspecified fracture of lower end of right humerus, initial e [facility]: Emergency DIAGNOSES: - Other cervical disc degeneration, unspecified cervical region - Pain in right shoulder - Radiculopathy, cervical region - Neck Pain - Shoulder Pain 11/30/2018 18:[address] [facility] [facility] TYPE: Emergency COMPLAINT: - BACK PAIN DIAGNOSES: - Other usp (current) drug therapy - Epilepsy, unspecified, not intractable, without status epilep - Bipolar disorder, unspecified - Allergy status to other drugs, medicaments and biological sub - Cervical disc disorder, unspecified, unspecified cervical reg - Chronic obstructive pulmonary disease, unspecified - Unspecified thoracic, thoracolumbar and lumbosacral intervert - Low back pain - Essential (primary) hypertension - Post-traumatic stress disorder, unspecified INPATIENT VISIT TRACKING (12 MO.) No inpatient visits to display in this time frame [email or web address]
== END 2019-11-25 20:24 | disposition home or self-care (01) ==
LOC: ED 18:12
DX: S06.9X1A Unspecified intracranial injury with loss of consciousness of 30 minutes or less, initial encounter (principal); S01.01XA Laceration without foreign body of scalp, initial encounter; I10 Essential (primary) hypertension; G40.909 Epilepsy, unspecified, not intractable, without status epilepticus; J44.9 Chronic obstructive pulmonary disease, unspecified; F31.9 Bipolar disorder, unspecified; F41.9 Anxiety disorder, unspecified; Z88.8 Allergy status to other drugs, medicaments and biological substances; Z79.899 Other long term (current) drug therapy; W01.0XXA Fall on same level from slipping, tripping and stumbling without subsequent striking against object, initial encounter
CPT/HCPCS: 70450; 99284-25; A9270

== ENCOUNTER 2020-10-07 11:45 | Emergency (ER) | payer MEDICARE, OTHER ==
[~2020-10-07] VITALS: Ht 167.6 cm; Wt 79.4 kg
--- OUTSIDE RECORDS SUMMARY | 2020-10-07 11:50 | XMS ---
PreManage Notification: MICHAEL CHAVEZ Security Hazardous Material Technician Events No recent Security Events currently on file CRITERIA MET - Group Notification CARE PROVIDERS Elsie Capellan Electric Spot Welder/Form Setter Helper 06/17/2020-Current PHONE: [phone] Raymundo has no Care Guidelines for this patient. Care History Medical/Surgical 12/01/2018 [facility] - PATIENT HAS A NEURO INTERVENTIONAL SPECIALIST AT [facility]- DR CHOWDARY. 01/31/2018 [facility] - CHW is unable to contact patient on patient friends phone number provided. - Please have patient provide an update on contact information. - Or provide CHW contact Katy [phone] so CHW can help patient connect to community resources. 01/25/2018 [facility] Care Recommendation: - USE EXTREME CAUTION [...] care. E.D. VISIT COUNT (12 MO.) [address] [facility] 2 JOSE CARLOS [place] TOTAL 3 NOTE: Visits indicate total known visits. ED/UCC VISIT TRACKING (12 MO.) 10/07/2020 11:46 [facility] [place] TYPE: Emergency COMPLAINT: - SYNCOPE EPISODE 11/25/2019 18:15 [facility] [place] TYPE: Emergency COMPLAINT: - HEAD INJURY/LACERATION DIAGNOSES: - Allergy status to other drugs, medicaments and biological substances - Fall on same level from slipping, tripping and stumbling without subsequent striking against object, initial encounter - Essential (primary) hypertension - Anxiety disorder, unspecified - Laceration without foreign body of scalp, initial encounter - Chronic obstructive pulmonary disease, unspecified - Unspecified intracranial injury with loss of consciousness of 30 minutes or less, initial encounter - Epilepsy, unspecified, not intractable, without status epilepticus - Unspecified injury of head, initial encounter - Bipolar disorder, unspecified - Other shelter (current) drug therapy 10/24/2019 09:23 [facility] TYPE: Emergency DIAGNOSES: - Seizure (Adult - Prior Hx Of) - Other chronic pain - Low back pain - Unspecified convulsions - Lumbago with sciatica, left side - Lumbago with sciatica, right side - Back Pain INPATIENT VISIT TRACKING (12 MO.) No inpatient visits to display in this time frame [id number]
[2020-10-07] MEDS ORDERED: TELMISARTAN80 MG PO (14:09)
[2020-10-07] MEDS ORDERED: DEPAKOTE250 MG PO (14:11)
--- NOTE | 2020-10-08 09:36 | EKG ---
[facility] [address] [facility] [place] [address] Signed Normal sinus rhythm Nonspecific T wave abnormality Abnormal ECG When compared with ECG of 29-JAN-2018 07:36, Nonspecific T wave abnormality now evident in Inferior leads QT has shortened Confirmed by ILENE FLEMING MD ([id number]) on 10/08/2020 9:36:53 AM Electronically Signed By: ILENE FLEMING MD 10/08/20 0936 PATIENT NAME: MICHAEL CHAVEZ Electrocardiogram DATE OF : 67 PHYSICIAN: ILENE FLEMING MD REPORT #: [id number] REPORT IS CONFIDENTIAL AND NOT TO BE RELEASED WITHOUT AUTHORIZATION
== END 2020-10-07 14:27 | disposition home or self-care (01) ==
LOC: ED 11:45
DX: G40.909 Epilepsy, unspecified, not intractable, without status epilepticus (principal); I10 Essential (primary) hypertension; Z21 Asymptomatic human immunodeficiency virus [HIV] infection status; J44.9 Chronic obstructive pulmonary disease, unspecified; Z88.8 Allergy status to other drugs, medicaments and biological substances; Z88.5 Allergy status to narcotic agent; Z79.899 Other long term (current) drug therapy; Z79.52 Long term (current) use of systemic steroids
CPT/HCPCS: 80053; 85025; 93005; 93010; 99284-25

== ENCOUNTER 2021-04-25 13:34 | Emergency (ER) | payer MEDICARE, OTHER ==
[~2021-04-25] VITALS: Ht 167.6 cm; Wt 79.4 kg
--- OUTSIDE RECORDS SUMMARY | 2021-04-25 13:36 | XMS ---
PreManage Notification: MICHAEL CHAVEZ Security Taxonomy Teacher Events No recent Security Events currently on file CRITERIA MET - PDMP - Group Notification CARE PROVIDERS Krystal Eatona Dust Collector Attendant/Fish Net Stringer 03/17/2021-Current PHONE: [phone] Raymundo has no Care Guidelines for this patient. Care History Medical/Surgical 12/01/2018 [facility] - PATIENT HAS A NEURO INTERVENTIONAL SPECIALIST AT [facility]- DR CHOWDARY. 01/31/2018 [facility] - CHW is unable to contact patient on patient friends phone number provided. - Please have patient provide an update on contact information. - Or provide CHW contact Katy [phone] so CHW can help patient connect to community resources. 01/25/2018 [facility] Care Recommendation: - USE EXTREME CAUTION IN [...] care. E.D. VISIT COUNT (12 MO.) 2 [facility] TOTAL 2 NOTE: Visits indicate total known visits. ED/UCC VISIT TRACKING (12 MO.) 04/25/2021 13:34 [facility] [place] TYPE: Emergency COMPLAINT: - HIGH B/P 10/07/2020 11:46 [facility] [place] TYPE: Emergency COMPLAINT: - SYNCOPE EPISODE DIAGNOSES: - Essential (primary) hypertension - Other [place] [facility] (current) drug therapy - correction (current) use of systemic steroids - Allergy status to other drugs, medicaments and biological substances - Epilepsy, unspecified, not intractable, without status epilepticus - Syncope and collapse - Allergy status to narcotic agent - Chronic obstructive pulmonary disease, unspecified INPATIENT VISIT TRACKING (12 MO.) No inpatient visits to display in this time frame [email or web address]
[2021-04-25] MEDS ORDERED: DEPAKOTE250 MG PO (13:42)
[2021-04-25] MEDS ORDERED: HYDROCODON-ACE1 EAC8 PO (13:48)
[2021-04-25] MEDS ORDERED: MS CONTIN15 MG PO (13:49)
[2021-04-25] MEDS ORDERED: HYDROCHLOROTH12.5 MG PO (14:43)
== END 2021-04-25 15:00 | disposition home or self-care (01) ==
LOC: ED 13:34
DX: I10 Essential (primary) hypertension (principal); Z21 Asymptomatic human immunodeficiency virus [HIV] infection status; G40.909 Epilepsy, unspecified, not intractable, without status epilepticus; J44.9 Chronic obstructive pulmonary disease, unspecified; Z88.8 Allergy status to other drugs, medicaments and biological substances; Z88.5 Allergy status to narcotic agent; Z79.899 Other long term (current) drug therapy; Z79.891 Long term (current) use of opiate analgesic
CPT/HCPCS: 99283

== ENCOUNTER 2021-08-25 12:33 | Emergency (ER) | payer MEDICARE, OTHER ==
[~2021-08-25] VITALS: Ht 167.6 cm; Wt 79.4 kg
[~2021-08-25 12:33] MED LIST changes: +HYDROCHLOROTH12.5 MG PO; +HYDROCODON-ACE1 EAC8 PO; +MS CONTIN15 MG PO
--- OUTSIDE RECORDS SUMMARY | 2021-08-25 12:36 | XMS ---
PreManage Notification: MICHAEL CHAVEZ Security Centura Technical Lead Senior Developer Events No recent Security Events currently on file CRITERIA MET - [facility] Vitaliy Mendoza Physical Medicine \T\ Rehabilitation 04/28/2021-Current PHONE: [phone] Sara Eaton Diver'S Tender/Examination Supervisor 07/15/2021-Current PHONE: [phone] Raymundo has no Care Guidelines for this patient. Care History Medical/Surgical 12/01/2018 [facility] - PATIENT HAS A NEURO INTERVENTIONAL SPECIALIST AT [facility]- DR CHOWDARY. 01/31/2018 [facility] - CHW is unable to contact patient on patient friends phone number provided. - Please have patient provide an update on contact information. - Or provide CHW contact Katy [phone] so CHW can help patient connect to community resources. 01/25/2018 [facility] Care Recommendation: - USE EXTREME CAUTION [...] providing care. E.D. VISIT COUNT (12 MO.) 3 [facility] TOTAL 3 NOTE: Visits indicate total known visits. ED/UCC VISIT TRACKING (12 MO.) 08/25/2021 12:33 [facility] [place] TYPE: Emergency COMPLAINT: - HIGH B/P 04/25/2021 13:34 [facility] [place] TYPE: Emergency COMPLAINT: - HIGH B/P DIAGNOSES: - Allergy status to narcotic agent - Chronic obstructive pulmonary disease, unspecified - Epilepsy, unspecified, not intractable, without status epilepticus - intermediate (current) use of opiate analgesic - Other laborer marine terminal (current) drug therapy - Essential (primary) hypertension - Allergy status to other drugs, medicaments and biological substances 10/07/2020 11:46 [facility] [place] TYPE: Emergency COMPLAINT: - SYNCOPE EPISODE DIAGNOSES: - Essential (primary) hypertension - Other [place] [facility] [place] (current) drug therapy - termite exterminator (current) use of systemic steroids - Allergy status to other drugs, medicaments and biological substances - Epilepsy, unspecified, not intractable, without status epilepticus - Syncope and collapse - Allergy status to narcotic agent - Chronic obstructive pulmonary disease, unspecified INPATIENT VISIT TRACKING (12 MO.) No inpatient visits to display in this time frame [id number]
[2021-08-25] MEDS ORDERED: PREGABALIN150 MG PO (12:52)
[2021-08-25] MEDS ORDERED: NORVASC5 MG PO (14:37)
[2021-08-25] MEDS ORDERED: HYDROCHLOROTH12.5 MG PO (14:37)
--- NOTE | 2021-08-27 15:38 | EKG ---
[facility] [address] [place] [address] Signed Normal sinus rhythm with sinus arrhythmia Incomplete right bundle branch block Minimal voltage criteria for LVH, may be normal variant ( Sokolow-Gillespie ) Nonspecific T wave abnormality Abnormal ECG When compared with ECG of 07-OCT-2020 12:13, ST elevation now present in Anterior leads Nonspecific T wave abnormality no longer evident in Inferior leads Confirmed by ILENE FLEMING MD ([id number]) on 08/27/2021 3:38:28 PM Electronically Signed By: ILENE FLEMING MD 08/27/21 1538 PATIENT NAME: MICHAEL CHAVEZ Electrocardiogram DATE OF : 67 PHYSICIAN: ILENE FLEMING MD REPORT #: [id number] REPORT IS CONFIDENTIAL AND NOT TO BE RELEASED WITHOUT AUTHORIZATION
== END 2021-08-25 14:53 | disposition home or self-care (01) ==
LOC: ED 12:33
DX: I10 Essential (primary) hypertension (principal); H53.9 Unspecified visual disturbance; Z21 Asymptomatic human immunodeficiency virus [HIV] infection status; G40.909 Epilepsy, unspecified, not intractable, without status epilepticus; J44.9 Chronic obstructive pulmonary disease, unspecified; Z88.8 Allergy status to other drugs, medicaments and biological substances; Z88.5 Allergy status to narcotic agent; Z79.899 Other long term (current) drug therapy
CPT/HCPCS: 36415; 70450; 80053; 85025; 93005; 93010; 99284-25

== ENCOUNTER 2021-10-03 17:11 | Emergency (ER) | payer MEDICARE, OTHER ==
[~2021-10-03] VITALS: Ht 167.6 cm; Wt 79.4 kg
[~2021-10-03 17:11] MED LIST changes: +NORVASC5 MG PO; +PREGABALIN150 MG PO
--- OUTSIDE RECORDS SUMMARY | 2021-10-03 17:14 | XMS ---
PreManage Notification: MICHAEL CHAVEZ Security Social Welfare Administrator Events No recent Security Events currently on file CRITERIA MET - PDMP - Group Notification CARE PROVIDERS Ye Greco Sap Trainer/Management Assistant 08/15/2021-Current PHONE: [phone] Vitaliy Mendoza Physical Medicine \T\ Rehabilitation 04/28/2021-Current PHONE: [phone] Raymundo has no Care Guidelines for this patient. Care History Medical/Surgical 12/01/2018 [facility] - PATIENT HAS A NEURO INTERVENTIONAL SPECIALIST AT [facility]- DR CHOWDARY. 01/31/2018 [facility] - CHW is unable to contact patient on patient friends phone number provided. - Please have patient provide an update on contact information. - Or provide CHW contact Katy [phone] so CHW can help patient connect to [...] providing care. E.D. VISIT COUNT (12 MO.) 4 JOSE CARLOS [facility] TOTAL 4 NOTE: Visits indicate total known visits. ED/UCC VISIT TRACKING (12 MO.) 10/03/2021 17:12 [facility] [place] TYPE: Emergency COMPLAINT: - POSS SEIZURE 08/25/2021 12:33 [facility] [place] TYPE: Emergency COMPLAINT: - HIGH B/P DIAGNOSES: - Allergy status to other drugs, medicaments and biological substances - Unspecified visual disturbance - Chronic obstructive pulmonary disease, unspecified - Other emt intermediate (current) drug therapy - Epilepsy, unspecified, not intractable, without status epilepticus - Allergy status to narcotic agent - Essential (primary) hypertension 04/25/2021 13:34 [facility] [place] TYPE: Emergency COMPLAINT: - HIGH B/P DIAGNOSES: - Allergy status to narcotic agent - Chronic obstructive pulmonary disease, unspecified - Epilepsy, unspecified, not intractable, without status epilepticus - termite control servicer (current) use of opiate analgesic - Other penitentiary (current) drug therapy - Essential (primary) hypertension - Allergy status to other drugs, medicaments and biological substances 10/07/2020 11:46 [facility] [place] [facility] [place] TYPE: Emergency COMPLAINT: - SYNCOPE EPISODE DIAGNOSES: - Essential (primary) hypertension - Other emt intermediate (current) drug therapy - prison (current) use of systemic steroids - Allergy status to other drugs, medicaments and biological substances - Epilepsy, unspecified, not intractable, without status epilepticus - Syncope and collapse - Allergy status to narcotic agent - Chronic obstructive pulmonary disease, unspecified INPATIENT VISIT TRACKING (12 MO.) No inpatient visits to display in this time frame [email or web address]
[2021-10-03] MEDS ORDERED: TELMISARTAN80 MG PO (19:14)
[2021-10-03] MEDS ORDERED: NORVASC5 MG PO (19:14)
== END 2021-10-03 19:33 | disposition home or self-care (01) ==
LOC: ED 17:11
DX: I10 Essential (primary) hypertension (principal); G40.909 Epilepsy, unspecified, not intractable, without status epilepticus; Z21 Asymptomatic human immunodeficiency virus [HIV] infection status; J44.9 Chronic obstructive pulmonary disease, unspecified; Z88.8 Allergy status to other drugs, medicaments and biological substances; Z88.5 Allergy status to narcotic agent; Z79.899 Other long term (current) drug therapy
CPT/HCPCS: 99283

== ENCOUNTER 2021-10-24 08:26 | Emergency (ER) | payer MEDICARE, OTHER ==
[~2021-10-24] VITALS: Ht 167.6 cm; Wt 79.4 kg
--- OUTSIDE RECORDS SUMMARY | 2021-10-24 08:45 | XMS ---
PreManage Notification: MICHAEL CHAVEZ Security Account Representative Events No recent Security Events currently on file CRITERIA MET - [facility] - [facility] - 2 Visits in 30 Days - Group Notification CARE PROVIDERS Ye Greco Engine Cleaner/Executive Coordinator 08/15/2021-Current PHONE: [phone] Vitaliy Mendoza Physical Medicine \T\ Rehabilitation 04/28/2021-Current PHONE: [phone] Raymundo has no Care Guidelines for this patient. Care History Medical/Surgical 12/01/2018 [facility] - PATIENT HAS A NEURO INTERVENTIONAL SPECIALIST AT [facility]- DR CHOWDARY. 01/31/2018 [facility] - CHW is unable to contact patient on patient friends phone number provided. - Please have patient provide an update on contact information. - Or provide CHW contact Katy [phone] so CHW can help patient connect to community resources. 01/25/2018 [facility] Care Recommendation: - USE EXTREME CAUTION IN [...] should exercise clinical judgment when providing care. ERandall. VISIT COUNT (12 MO.) 4 JOSE CARLOS Hernández TOTAL 4 NOTE: Visits indicate total known visits. ED/UCC VISIT TRACKING (12 MO.) 10/24/2021 08:26 [facility] [place] TYPE: Emergency COMPLAINT: - L FOOT PAIN 10/03/2021 17:12 [facility] [place] TYPE: Emergency COMPLAINT: - POSS SEIZURE DIAGNOSES: - Chronic obstructive pulmonary disease, unspecified - Unspecified convulsions - Allergy status to other drugs, medicaments and biological substances - Epilepsy, unspecified, not intractable, without status epilepticus - Other senior living (current) drug therapy - Allergy status to narcotic agent - Essential (primary) hypertension 08/25/2021 12:33 [facility] [place] TYPE: Emergency COMPLAINT: - HIGH B/P DIAGNOSES: - Allergy status to other drugs, medicaments and biological substances - Unspecified visual disturbance - Chronic obstructive pulmonary disease, unspecified - Other senior living (current) drug therapy - Epilepsy, unspecified, not intractable, without status epilepticus - Allergy status to narcotic agent - Essential (primary) hypertension 04/25/2021 13:34 [facility] [place] TYPE: Emergency COMPLAINT: - HIGH B/P DIAGNOSES: - Allergy status to narcotic agent - Chronic obstructive pulmonary disease, unspecified - Epilepsy, unspecified, not intractable, without status epilepticus - correction (current) use of opiate analgesic - Other superintendent terminal (current) drug therapy - Essential (primary) hypertension - Allergy status to other drugs, medicaments and biological substances INPATIENT VISIT TRACKING (12 MO.) No inpatient visits to display in this time frame [email or web address]
== END 2021-10-24 09:41 | disposition home or self-care (01) ==
LOC: ED 08:26
DX: S93.402A Sprain of unspecified ligament of left ankle, initial encounter (principal); X50.1XXA Overexertion from prolonged static or awkward postures, initial encounter; Z21 Asymptomatic human immunodeficiency virus [HIV] infection status; G40.909 Epilepsy, unspecified, not intractable, without status epilepticus; J44.9 Chronic obstructive pulmonary disease, unspecified; F43.10 Post-traumatic stress disorder, unspecified; Z88.8 Allergy status to other drugs, medicaments and biological substances; Z88.5 Allergy status to narcotic agent; Z79.899 Other long term (current) drug therapy; Z79.891 Long term (current) use of opiate analgesic
CPT/HCPCS: 73590; 73610; 99283-25

== ENCOUNTER 2022-03-25 13:27 | Emergency (ER) | payer MEDICARE, OTHER ==
[~2022-03-25] VITALS: Ht 167.6 cm; Wt 82.5 kg
--- OUTSIDE RECORDS SUMMARY | 2022-03-25 13:30 | XMS ---
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 01/31/2018 [facility] - CHW is unable to contact patient on patient friends phone number provided. - Please have patient provide an update on contact information. - Or provide CHW contact Katy [phone] so CHW can help patient connect to community resources. 01/25/2018 [facility] Care Recommendation: - USE EXTREME CAUTION [...] providing care. E.D. VISIT COUNT (12 MO.) 5 JOSE CARLOS Hernández TOTAL 5 NOTE: Visits indicate total known visits. 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 - Post-traumatic stress disorder, unspecified - Chronic obstructive pulmonary disease, unspecified - Pain in left ankle and joints of left foot - Overexertion from prolonged static or awkward postures, initial encounter - Allergy status to other drugs, medicaments and biological substances - Sprain of unspecified ligament of left ankle, initial encounter - hat former (current) use of opiate analgesic - Epilepsy, unspecified, not intractable, without status epilepticus - Allergy status to narcotic agent 10/03/2021 17:12 [facility] [place] TYPE: Emergency COMPLAINT: - POSS SEIZURE DIAGNOSES: - Epilepsy, unspecified, not intractable, without status epilepticus - Unspecified convulsions - Essential (primary) hypertension - 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 - Allergy status to other drugs, medicaments and biological substances - Chronic obstructive pulmonary disease, unspecified - Allergy status to narcotic agent 08/25/2021 12:33 [facility] [place] TYPE: Emergency COMPLAINT: - HIGH B/P DIAGNOSES: - 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
[2022-03-25] MEDS ORDERED: NORVASC10 MG PO (15:44)
--- NOTE | 2022-03-25 20:35 | EKG ---
[facility] [address] [facility] [place] [address] Signed Normal sinus rhythm Nonspecific ST and T wave abnormality Abnormal ECG When compared with ECG of 25-AUG-2021 13:57, ST no longer elevated in Anterior leads Confirmed by GÓMEZ MORENO MD ([id number]) on 03/25/2022 8:35:32 PM Electronically Signed By: GÓMEZ MORENO MD 03/25/222034 PATIENT NAME: MICHAEL CHAVEZ Electrocardiogram DATE OF : 67 PHYSICIAN: GÓMEZ MORENO MD REPORT #: [id number] REPORT IS CONFIDENTIAL AND NOT TO BE RELEASED WITHOUT AUTHORIZATION
== END 2022-03-25 16:00 | disposition home or self-care (01) ==
LOC: ED 13:27
DX: I10 Essential (primary) hypertension (principal); G40.909 Epilepsy, unspecified, not intractable, without status epilepticus; J44.9 Chronic obstructive pulmonary disease, unspecified; F43.10 Post-traumatic stress disorder, unspecified; Z21 Asymptomatic human immunodeficiency virus [HIV] infection status; Z88.8 Allergy status to other drugs, medicaments and biological substances; Z88.5 Allergy status to narcotic agent; Z79.899 Other long term (current) drug therapy; Z79.891 Long term (current) use of opiate analgesic
CPT/HCPCS: 36415; 71045; 80053; 83735; 84443; 84484; 85025; 93005; 93010; 99285-25

== ENCOUNTER 2023-11-15 12:20 | Emergency (ER) | payer MEDICARE, OTHER ==
[~2023-11-15] VITALS: Ht 167.6 cm; Wt 77.7 kg
[~2023-11-15 12:20] MED LIST changes: +IMITREX50 MG PO; +NORVASC10 MG PO
[2023-11-15] MEDS ORDERED: DESCOVY 200-251 EACH PO (13:15)
[2023-11-15] MEDS ORDERED: LORazepam 1 MG TAB PO ONE (13:15)
[2023-11-15] MEDS ORDERED: hydrOXYzine pamoate 25 MG CAP PO ONE (13:30)
[2023-11-15] MEDS ORDERED: HYDROXYZINE HCL25 MG PO (14:25)
[2023-11-15 14:50] VITALS: BP 141/89
== END 2023-11-15 14:50 | disposition home or self-care (01) ==
LOC: ED 12:20
DX: I10 Essential (primary) hypertension (principal); F41.9 Anxiety disorder, unspecified; G40.909 Epilepsy, unspecified, not intractable, without status epilepticus; J44.9 Chronic obstructive pulmonary disease, unspecified; F31.9 Bipolar disorder, unspecified; Z21 Asymptomatic human immunodeficiency virus [HIV] infection status; Z88.5 Allergy status to narcotic agent; Z88.8 Allergy status to other drugs, medicaments and biological substances
CPT/HCPCS: Q0177

== ENCOUNTER 2024-09-08 12:45 | Emergency (ER) | payer MEDICARE, OTHER ==
[~2024-09-08] VITALS: Ht 167.6 cm; Wt 77.0 kg
[~2024-09-08 12:45] MED LIST changes: +HYDROXYZINE HCL25 MG PO
[2024-09-08] MEDS ORDERED: SEREVENT DISKU50 MCG INH (13:23)
[2024-09-08] MEDS ORDERED: EMTRICITABINE-1 EACH PO (13:23)
[2024-09-08] MEDS ORDERED: ONDANSETRON 4 MG TAB ODT SL ONE (13:45)
[2024-09-08] MEDS ORDERED: HYDROmorphone HCL 1 MG/ML SYR IM ONE (13:45)
[2024-09-08 15:08] LABS: BILIRUBIN, URINE NEGATIVE (negative); BLOOD/HGB, URINE NEGATIVE (Negative); KETONE, URINE NEGATIVE (Negative); LEUK ESTERASE, URINE NEGATIVE (negative); NITRITE, URINE NEGATIVE (negative)
[2024-09-08 15:14] LABS: BACTERIA, URINE NONE SEEN /hpf (negative); CASTS, URINE NONE SEEN \\lpf; COLLECTION TYPE, URINE CLEAN CATCH; CRYSTALS, URINE NONE SEEN (0-1+); EPITHELIAL CELLS, URINE SQUAMOUS 1+ /lpf (0-1+); RED BLOOD CELLS, URINE 0-1 /hpf (0-5); REFLEX CULTURE, URINE No (No); WHITE BLOOD CELLS, URINE 0-1 /HPF (0-5)
[2024-09-08] MEDS ORDERED: LIDODERM1 EACH TOP (16:14)
[2024-09-08] MEDS ORDERED: HYDROCODON-ACE1 EA10 PO (16:14)
[2024-09-08] MEDS ORDERED: PREDNISONE20 MG PO (16:14)
[2024-09-08 16:31] VITALS: BP 136/99
== END 2024-09-08 16:20 | disposition home or self-care (01) ==
LOC: ED 12:45
PROVIDERS: Emergency Medicine
DX: M54.50 Low back pain, unspecified (principal); I10 Essential (primary) hypertension; F43.10 Post-traumatic stress disorder, unspecified; J44.89 Other specified chronic obstructive pulmonary disease; Z79.899 Other long term (current) drug therapy; Z88.5 Allergy status to narcotic agent; Z88.8 Allergy status to other drugs, medicaments and biological substances
CPT/HCPCS: 72100; 81001; 96372; 99284; A9270; J1171

== ENCOUNTER 2024-11-06 11:27 | Emergency (ER) | payer MEDICARE, OTHER ==
[~2024-11-06] VITALS: Ht 167.6 cm; Wt 71.1 kg
[~2024-11-06 11:27] MED LIST changes: +EMTRICITABINE-1 EACH PO; +HYDROCODON-ACE1 EA10 PO; +LIDODERM1 EACH TOP; +PREDNISONE20 MG PO; +SEREVENT DISKU50 MCG INH
[2024-11-06 11:44] LABS: BASOPHILS 0.7 % (0.2-1.2); EOSINOPHILS 1.2 % (0.8-7.0); HEMATOCRIT 47.4 % (40.1-51.0); HEMOGLOBIN 16.3 g/dL (13.7-17.5); LYMPHOCYTES 43.5 % (21.8-53.1); MCH 28.8 PG (25.7-32.2); MCHC 34.4 g/dL (32.3-36.5); MCV 83.7 fL (79.0-92.2); MONOCYTES 10.4 % (5.3-12.2); PLATELET COUNT 246 K/uL (163-337); RBC 5.66 M/uL (4.63-6.08)
[2024-11-06] MEDS ORDERED: CARVEDILOL6.25 MG PO (11:50)
[2024-11-06 12:04] LABS: ALBUMIN 4.3 g/dL (3.4-5.0); ALBUMIN/GLOBULIN RATIO 1.23 (1.1-2.4); ANION GAP 15.5 (7-21); BUN/CREATININE RATIO 18.88 (6.0-28.6); CALCIUM 9.6 mg/dL (8.5-10.1); CREATININE, SERUM 1.43 mg/dL (0.70-1.30); POTASSIUM 3.5 mmol/L (3.5-5.1); PROTEIN, TOTAL 7.8 g/dL (6.4-8.2)
--- OUTSIDE RECORDS SUMMARY | 2024-11-06 12:08 | XMS | Continuity of Care Document ---
Demographics + + + | Address | [address] | | | [place] [address] | + + + | Preferred Language | Unknown | + + + | Marital Status | Never | + + + | Pentecostal Affiliation | Unknown | + + + | Race | White | + + + | Ethnic Group | Unknown | + + + Author + + + | Author | [facility] | + + + | Organization | [facility] | + + + | Address | [address] | | | [place] [address] | + + + | Phone | | + + + Care Team Providers + + + + | Care Medical Transcriptionist Name | Role | Phone | + + + + Unavailable | Unavailable | + + + + Allergies No information. Encounters No information. Functional Status No information. Immunizations No information. Medications No information. 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, lumbar region | [facility] | | | without mention of lumbar | | | | back pain or lower | | | | extremity pain | | + + + + | 2024-09-14 15:08:25 | Low back pain, unspecified | [place] | | | | [facility] | + + + + | 2024-09-14 15:17:27 | Hypokalemia | [place] | | | | [facility] | + + + + | 2024-09-14 15:17:27 | Other intervertebral disc | [place] | | | degeneration, lumbar region | [facility] | | | without mention of lumbar | | | | back pain or lower | | | | extremity pain | | + + + + | 2024-09-14 15:17:27 | Low back pain, unspecified | [facility] | | | | [facility] | + + + + | 2024-09-18 09:26:26 | Hypokalemia | [facility] | | | | [facility] | + + + + | 2024-09-18 09:26:26 | Other intervertebral disc | [place] | | | degeneration, lumbar region | [facility] | | | without mention of lumbar | | | | back pain or lower | | | | extremity pain | | + + + + | 2024-09-18 09:26:26 | Low back pain, unspecified | [place] | | | | [facility] | + + + + | 2024-09-18 09:26:42 | Hypokalemia | [place] | | | | [facility] | + + + + | 2024-09-18 09:26:42 | Other intervertebral disc | [facility] | | | degeneration, lumbar region | [facility] | | | without mention of lumbar | | | | back pain or lower | | | | extremity pain | | + + + + | 2024-09-18 09:26:42 | Low back pain, unspecified | [facility] | | | | [facility] | + + + + Procedures No information. Results/Labs No information. Social History +--------+ + + | date | description | facility | +--------+ + + Vital Signs No information."
[2024-11-06 13:47] VITALS: BP 114/83
--- NOTE | 2024-11-06 20:56 | EKG ---
[facility] [address] [facility] [place] [address] Signed Normal sinus rhythm Incomplete right bundle branch block ST \T\ T wave abnormality, consider lateral ischemia Abnormal ECG When compared with ECG of OCT 2022 22:07, T wave inversion in Lateral leads Confirmed by Ashkan Moss MD () on 11/06/2024 8:56:43 PM Electronically Signed By: ASHKAN MOSS MD 11/06/242055 PATIENT NAME: MICHAEL CHAVEZ PILLO Electrocardiogram DATE OF : 67 PHYSICIAN: ASHKAN MOSS MD REPORT #: [id number] REPORT IS CONFIDENTIAL AND NOT TO BE RELEASED WITHOUT AUTHORIZATION
== END 2024-11-06 13:47 | disposition home or self-care (01) ==
LOC: ED 11:27
PROVIDERS: Emergency Medicine
DX: R07.9 Chest pain, unspecified (principal); I10 Essential (primary) hypertension; J44.89 Other specified chronic obstructive pulmonary disease; F43.10 Post-traumatic stress disorder, unspecified; Z79.899 Other long term (current) drug therapy; Z88.5 Allergy status to narcotic agent; Z88.8 Allergy status to other drugs, medicaments and biological substances
CPT/HCPCS: 36415; 71045; 80053; 83880; 84484; 85025; 85379; 93005; 93010; 99285-25